=== PATIENT | female | born 1940 | race Caucasian/White ===

== ENCOUNTER 2017-06-20 06:21 | Observation (INO) | payer MEDICARE ==
[2017-06-03 11:37] VITALS: BMI 47.0
--- NOTE | 2017-06-03 12:12 | PAT Medication Instructions ---
Service Date Jun 03, 2017. 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 Fluticasone Propionate (Nasal) (Flonase Allergy Relief), 2 SPRAYS SINAN PRN Furosemide (Lasix), 40 MG PO 3XWK Furosemide (Lasix), 80 MG PO 4XWK Glipizide (Glipizide), 1 TAB PO DAILY Insulin Glargine (Lantus), 40 UNITS SC QAM Insulin Glargine (Lantus), 42 UNITS SC QPM Lisinopril (Lisinopril), 1 TAB PO QAM Meclizine HCl (Meclizine HCl), 1 TAB PO TID PRN for prn Metformin Hcl (Glucophage), 1,000 MG PO BID Oxycodone Ir (Roxicodone Ir), 0.5 TAB PO PRN PRN for Severe Pain Potassium Ext Rel (Klor-Con), 20 MEQ PO 3XWK Potassium Ext Rel (Klor-Con), 40 MEQ PO 4XWK Pregabalin (Lyrica), 1 CAP PO TID Warfarin Sod (Coumadin), 1 TAB PO 3XWEEK Warfarin Sod (Coumadin), 7.5 MG PO 4XWEEK [Clindamycin 2 % Cr], 1 DOSE TOP BID [Nystatin Powd], 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 Instructions For Your Scheduled Surgery - Instructions per prescribing physician/Coumadin clinic: Warfarin Sod (Coumadin), 1 TAB PO 3XWEEK Warfarin Sod (Coumadin), 7.5 MG PO 4XWEEK - Hold the following medications 48 hours prior to surgery: Metformin Hcl (Glucophage), 1,000 MG PO BID - Hold the following medications 24 hours prior to surgery: [Clindamycin 2 % Cr], 1 DOSE TOP BID [Nystatin Powd], 1 DOSE TOP TID 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 for RN - Hold the following medications the morning of surgery: Calcium (Calcium), 1 TAB PO TID Cholecalciferol (Vitamin D), 2,000 INTER.UNIT PO Q2D Lisinopril (Lisinopril), 1 TAB PO QAM Furosemide (Lasix), 40 MG PO 3XWK Furosemide (Lasix), 80 MG PO 4XWK Glipizide (Glipizide), 1 TAB PO DAILY Cyclobenzaprine Hcl (Flexeril), 10 MG PO BID PRN Potassium Ext Rel (Klor-Con), 20 MEQ PO 3XWK Potassium Ext Rel (Klor-Con), 40 MEQ PO 4XWK - Take the following medications the morning of surgery with a sip of water OTHERWISE NOTHING TO EAT OR DRINK AFTER MIDNIGHT: Pregabalin (Lyrica), 1 CAP PO TID Anastrozole (Anastrozole), 1 TAB PO QAM Atenolol (Tenormin), 50 MG PO QAM Fluticasone Propionate (Nasal) (Flonase Allergy Relief), 2 SPRAYS SINAN PRN Meclizine HCl (Meclizine HCl), 1 TAB PO TID PRN for prn Oxycodone Ir (Roxicodone Ir), 0.5 TAB PO PRN PRN for Severe Pain (may take if needed up to 4 hours prior to surgery) - For Insulin Dependent Diabetic patients: Test blood sugar A.M. of surgery. 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
[2017-06-03 12:31] LABS: BASO % 0.6 %; BASO ABS # 0.06 K/uL (0-0.2); COMPLETE YES; EOS % 2.3 %; HEMATOCRIT 42.6 % (37-47); IG% 4.2 %; LYMPH % 16.6 %; LYMPH ABS # 1.67 K/uL (1.2-3.4); MEAN CELL VOLUME 88.9 fL (80-100); MEAN CORPUSCULAR HEMOGLOBIN 28.4 pg (25-34); MEAN CORPUSCULAR HGB CONC 31.9 g/dl (32-36); MEAN PLATELET VOLUME 10.3 fL (7.4-10.4); MONO % 7.4 %; NEUT % 68.9 %; PLATELET COUNT 275 K/uL (130-400); RED BLOOD COUNT 4.79 M/uL (4.2-5.4); WHITE BLOOD COUNT 10.04 K/uL (4.8-10.8)
[2017-06-03 14:04] LABS: BUN/CREATININE RATIO 16.6 (10-20); CALCIUM 9.4 mg/dl (8.5-10.1); CREATININE 0.88 mg/dl (0.60-1.20); POTASSIUM 4.5 mmol/L (3.5-5.1)
[~2017-06-20] VITALS: Ht 162.6 cm; Wt 120.2 kg
[2017-06-20] VITALS (7 sets, daily range): BP systolic 104–147; BP diastolic 62–79; PULSE 56–78; TEMP 36.4–36.7; O2SAT 93–98; Ht 162.6 cm; Wt 120.2 kg
[~2017-06-20 06:21] MED LIST: ANAS1TAB6 PO; ANT25 PO; ATEN50TA8 PO; CALC500T83 PO; CHOL100010 PO; CLINDAMYCIN TOP; CMD5 PO; CMD75 PO; CYCL10TA6 PO; FLUT0.15 NAE; FRS/40 PO; FSMD/70 PO; FURO80TA63 PO; GLC5 PO; INSDGI SC; LACTATED RINGER'S 1000ML 1,000 ML IV SCH; LISI-461 PO; METF-384 PO; NYSTATIN POWD TOP; OXYC1TAB3 PO; POTA20TA16 PO; PREG100C PO
[2017-06-20 07:57] LABS: PROTHROMBIN TIME (PATIENT) 10.8 SECONDS (9.0-12.0)
[2017-06-20] MEDS ORDERED: ATROPINE SULFATE 0.1 MG/ML 5ML SYR IV PRN (08:15)
[2017-06-20] MEDS ORDERED: HYDROmorphone INJ 2 MG/ML SYR/VIAL IV PRN (08:15)
[2017-06-20] MEDS ORDERED: PROMETHAZINE HCL INJ 6.25 MG in SODIUM CHLORIDE 0.9% 50ML 50 ML IV PRN (08:15)
[2017-06-20] MEDS ORDERED: ONDANSETRON INJ 2 MG/ML 2 ML VIAL IV PRN ×2 (08:15→12:15)
[2017-06-20] MEDS ORDERED: KETOROLAC TROMETHAMINE 30 MG/ML VIAL IV. PRN (08:15)
[2017-06-20] MEDS ORDERED: ISOSULFAN BLUE 10 MG/ML VIAL 5 ML ONE (08:17)
[2017-06-20] MEDS ORDERED: FENTANYL CITRATE INJ 50 MCG/1 ML 2 ML VIAL ONE ×2 (08:18→11:46)
[2017-06-20] MEDS ORDERED: MIDAZOLAM HCL 1 MG/ML 2ML VIAL ONE (08:18)
--- NOTE | 2017-06-20 08:58 | DIAGNOSTIC IMAGING REPORT ---
LEFT BREAST LYMPHOSCINTIGRAPHY INJECTION CLINICAL HISTORY: LEFT BREAST CA COMPARISON STUDY: No previous studies for comparison. FINDINGS: A timeout was performed. The patient's left breast was prepped in sterile fashion. 5 periareolar intradermal injections were performed utilizing a total dose of 0.52 mCi of technetium 99m Lymphoseek. The patient was sent to the operating room for localization. IMPRESSION: Left breast periareolar lymphoscintigraphy injections were performed Electronically signed by: Jasper Bennett M.D. 06/20/2017 8:56 AM Dictated Date/Time: 06/20/2017 8:55 AM
--- NOTE | 2017-06-20 09:07 | History & Physical Bridge Note ---
H&P Re-Evaluation Bridge Note: I have examined the patient, reviewed the History & Physical and in the interval since the performance of the History & Physical I have noted the following changes of clinical significance: No changes noted
[2017-06-20] MEDS ORDERED: PROPOFOL IV EMULSION 10 MG/ML 20 ML VIAL IV ONE (10:23)
[2017-06-20] MEDS ORDERED: ONDANSETRON INJ 2 MG/ML 2 ML VIAL ONE (10:23)
[2017-06-20] MEDS ORDERED: LIDOCAINE HCL 2% 2 ML VIAL (20MG/ML) ONE (10:23)
[2017-06-20] MEDS ORDERED: NEOSTIGMINE METHYLSULFATE 5 MG/5 ML SYR ONE (10:23)
[2017-06-20] MEDS ORDERED: GLYCOPYRROLATE INJ 0.2 MG/ML VIAL ONE (10:23)
[2017-06-20] MEDS ORDERED: DEXAMETHASONE SOD INJ 4 MG/ML VIAL ONE (10:23)
--- NOTE | 2017-06-20 12:10 | [facility] Post Operative Brief Note ---
Immediate Operative Summary Operative Date Jun 20, 2017. Pre-Operative Diagnosis Malignant neopasm left breast Post-Operative Diagnosis Same Procedure(s) Performed Left Mastectomy and [place] Lymph Node Biopsy with Axillary Lymph Node Dissection Surgeon Dr Balderrama Shipping And Receiving Assistant Surgeon(s) Selina Schumacher PA-C Estimated Blood Loss 100ML Findings See dictation Specimens A. Left breast and axillary contents sent to lab fresh at 1145 Drains one J-P across chest wall and one J-P in axilla Anesthesia General Complication(s) Intermittent SVT Disposition Recovery Room / PACU
[2017-06-20] MEDS ORDERED: MoRPHine SULFATE 4 MG/ML 1 ML CARP\\VIAL IV PRN (12:15)
[2017-06-20] MEDS ORDERED: EpHEDrine SULFATE 50MG/5ML SYR ONE (12:39)
--- NOTE | 2017-06-20 14:09 | Anesthesiology Progress Note ---
Anesthesia Post Op Note Date & Time Jun 20, 2017 at 14:09 Vital Signs Pain Intensity: 4 Vital Signs Past 12 Hours Date Time Temp Pulse Resp B/P (MAP) Pulse Ox O2 Delivery O2 Flow Rate FiO2 06/20/17 13:36 36.4 62 20 147/74 (98) 95 06/20/17 13:20 58 20 153/53 94 Nasal Cannula 2 06/20/17 13:10 36.7 60 21 158/59 94 Nasal Cannula 2 06/20/17 13:00 64 24 160/58 98 Nasal Cannula 2 06/20/17 12:50 62 19 164/57 96 Oxymask 10 06/20/17 12:40 68 17 165/71 97 Oxymask 10 06/20/17 12:30 36.6 64 16 154/64 97 Oxymask 10 06/20/17 07:21 36.7 56 20 141/62 (88) 96 Room Air Notes Mental Status: alert / awake / arousable, participated in evaluation Pt Amnestic to Procedure: Yes Nausea / Vomiting: adequately controlled Pain: adequately controlled Airway Patency, RR, SpO2: stable & adequate BP & HR: stable & adequate Hydration State: stable & adequate Anesthetic Complications: no major complications apparent
[2017-06-20] MEDS ORDERED: IV FLUIDS COMPLETED PRN (14:15)
[2017-06-20] MEDS ORDERED: D5W AND 1/2NSS + 20MEQ KCL 1,000 ML IV SCH (15:00)
[2017-06-20] MEDS ORDERED: DEXTROSE 50% 50 ML SYR IV PRN (16:00)
[2017-06-20] MEDS ORDERED: GLUCAGON FOR INJ 1 MG VIAL SQ PRN (16:00)
[2017-06-20] MEDS ORDERED: GLUCOSE 10 TABS/TUBE PO PRN (16:00)
[2017-06-20] MEDS ORDERED: GLUCOSE 40% GEL 15 GM TUBE PO PRN (16:00)
--- NOTE | 2017-06-20 16:02 | OPERATIVE REPORT ---
DATE OF OPERATION: 06/20/2017 PREOPERATIVE DIAGNOSIS: Carcinoma of the left breast. 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 PROCEDURE: Left mastectomy with left axillary sentinel lymph node biopsy and left axillary node dissection. SURGEON: Dr. Christiano Balderrama. SUPER[employer]ENDENT [employer]: Selina Curtis PA-C FINDINGS: The biopsy cavities were never encountered. The flaps were viable. The sentinel lymph node biopsy was performed. [place] lymph node #1 had an in vivo count of 17 with an ex vivo count of 425 and sentinel lymph node #2 had an in vivo count of 37 and an ex vivo count of 51. Maximum background counts were 12; however, frozen section pathology on the lymph node #1 revealed metastatic disease. So, an axillary dissection was chosen. TECHNIQUE: The patient was given a general anesthetic after the area had been marked. The area was prepped and draped after Lymphazurin was injected around the nipple after cleansing the skin with alcohol. Once it was prepped and draped, the incision was sketched on the breast. The superior portion of the elliptical incision was made and carried down through the subcutaneous tissue. Meticulous hemostasis was obtained using electrocautery. The superior skin flap was then created from the lateral border of the sternum over to the lateral border of pectoralis major and using the clavicle as the superior extent. The inferior portion of the elliptical incision was made and the skin flap was made from the lateral border of the sternum to the lateral border of pectoralis major and down to where the previously marked inferior mammary crease was. Meticulous hemostasis was obtained. I then performed dissection up towards the axilla. The Neoprobe was then used to confirm where the lymph node had been identified prior to incision and the axilla was dissected until the lymph node was easily identified. It was away from the surrounding tissues using the LigaSure and sent for pathology. The second sentinel lymph node was identified, isolated and sent for pathology. That isolation was in a similar fashion. Once the lymph nodes were removed and sent, the prepectoral fascia was then divided inferior to the clavicle and from the lateral border of the sternum. It was peeled from medial to lateral until it was completely freed off the pectoralis over towards the lateral portion of the skin. It was at that point that the lymph node report returned and the axilla was addressed. Dissection of the axillary fascia was performed until the axillary vein was identified. The tissues inferior to the axillary vein were peeled inferiorly. The large anterior vein was identified and isolated allowing me then to go more posteriorly and identify the dorsal neurovascular bundle. This was freed of its attachments working from superior to inferior when it down towards the latissimus posteriorly. The nerve was compressed and was intact. Further dissection was then carried medially along the chest wall until the long thoracic nerve could be identified. It was compressed and was found to be functioning. The tissue between those 2 structures was then peeled inferiorly and included with the specimen. Once the thoracodorsal neurovascularly border was freed inferiorly, I was then able to divide the anterior chest wall attachments at the lateral border of pectoralis major and peeled that laterally. That allowed me then to complete the lateral dissection of the skin flap and separate this specimen completely. It was sent for pathology. Meticulous hemostasis was then obtained using electrocautery. Two separate stab incisions were made inferolateral to the incision, through which, 2 Jaylen-Vazquez drains were brought, 1 was passed over the anterior chest wall and the other one was passed into the axilla and then cut to size. It was secured at the skin level using 3-0 nylon. The skin incision was then closed using 2-0 Vicryl interrupted sutures in the deep subcutaneous tissue, 3-0 Vicryl running subcuticular sutures in the superficial subcutaneous tissue and a running 4-0 Monocryl in a subcuticular fashion for the skin. The skin was cleansed, dried, benzoin placed, and Steri-Strips applied. Dressing was placed. Estimated blood loss was 150 mL. Sponge, needle, and instrument counts were correct prior to closure. The patient tolerated the surgical procedure without complication and was transferred to recovery. I attest to the content of the Intraoperative Record and any orders documented therein. Any exceptions are noted below. CANDELARIAD
--- NOTE | 2017-06-20 16:03 | Medical Consult ---
Consultation Date of Consultation: Jun 20, 2017. Attending Physician: Christiano Balderrama M.D. History of Present Illness Patient was seen earlier today after being transferred to the PCU. She is a 76 yo female with hormone receptor positive breast cancer who underwent scheduled left mastectomy with sentinal lymph node and axillary lymph node dissection earlier this morning. During her operation she did have a few episodes of atrial tachycardia, but then reverted back to NSR in recovery. The patient denies any complaints right now other than pain/soreness at the surgical site, and some nausea/vomiting. She states she took 20 units of lantus this AM, and was NPO since midnight. At the times of evaluation the patient had some vomiting and dry heaving and stated she did not feel ready to eat yet. Past Medical/Surgical History PMHx: PE and DVT DM Type II HTN Osteoarthritis Lymphedema Diabetic neuropathy Paroxysmal atrial tachycardia Breast cancer SURGHx: total hysterectomy B/L knee arthroscopy low back surgery ruptured disk repair low back right shoulder rotator cuff repair tonsilectomy Family History Diabetes mellitus FATHER GRANDFATHER FH: heart disease FATHER MOTHER Social History Smoking Status: Never Smoker Alcohol Use: none Marital Status: Housing Status: lives with family Occupation Status: retired Allergies Coded Allergies: Rosiglitazone (Verified Allergy, Mild, UNKNOWN-RELATED POSS TO DVT/PE PER MEDICAL RECORD, 06/20/17) Acetaminophen (Verified Allergy, Unknown, HIVES, 06/20/17) Latex (Verified Allergy, Unknown, "Tape causes redness", 06/20/17) Penicillins (Unverified Allergy, Unknown, SOB ,THROAT SHUT,COULDN'T BREATHE, 06/20/17) Tramadol (Verified Allergy, Unknown, UNKNOWN, 06/20/17) Current Inpatient Medications Current Inpatient Medications Medications (Trade) Dose Ordered Sig/Lulu Route Start Time Stop Time Status Last Admin Dose Admin Lactated Ringer's 1,000 ml @ 15 mls/hr Q24H IV 06/20/17 06:00 06/21/17 05:59 Enoxaparin Sodium (Lovenox Inj) 40 mg Q24H SQ 06/21/17 06:00 07/21/17 05:59 Morphine Sulfate (MoRPHine SULFATE INJ) 4 mg Q1H PRN IV 06/20/17 12:15 07/04/17 12:14 Ondansetron HCl (Zofran Inj) 4 mg Q6H PRN IV 06/20/17 12:15 07/20/17 12:14 06/20/17 14:14 4 MG Potassium Chloride/Dextrose/ Sod Cl 1,000 ml @ 80 mls/hr [id number] IV 06/20/17 15:00 07/20/17 14:59 06/20/17 14:57 80 MLS/HR Oxycodone HCl (Roxicodone Immediate Rel Tab) 5 mg Q4H PRN PO 06/20/17 12:15 07/04/17 12:14 Atenolol (Tenormin Tab) 50 mg QAM PO 06/21/17 09:00 07/21/17 08:59 Furosemide (Lasix Tab) 40 mg DAILY PO 06/21/17 09:00 07/21/17 08:59 Lisinopril (Zestril Tab) 10 mg QAM PO 06/21/17 09:00 07/21/17 08:59 Miscellaneous (Iv Fluids Completed) 1 ea PRN PRN N/A 06/20/17 14:15 06/20/18 14:14 Insulin Aspart (novoLOG ASPART) SLIDING SCALE If C... ACHS SC 06/20/17 16:15 07/20/17 16:14 UNV Glucose (Glucose 40% Gel) 15-30 GRAMS 15 GRAMS... UD PRN PO 06/20/17 16:00 07/20/17 15:59 UNV Glucose (Glucose Chew Tab) 4-8 Tablets 4 Tabl... UD PRN PO 06/20/17 16:00 07/20/17 15:59 UNV Dextrose (Dextrose 50% 50ML Syringe) 25-50ML OF 50% DW IV FOR... UD PRN IV 06/20/17 16:00 07/20/17 15:59 UNV Glucagon (Glucagon Inj) 1 mg UD PRN SQ 06/20/17 16:00 07/20/17 15:59 UNV Insulin Glargine (Lantus Solostar Pen) 30 units BID SC 06/20/17 21:00 07/20/17 20:59 UNV Review of Systems Constitutional: No fever, No chills, No sweats, No weight loss Eyes: No worsening of vision, No eye pain, No discharge, No diplopia ENT: No nasal symptoms, No sore throat, No trouble swallowing Respiratory: No cough, No wheezing, No shortness of breath, No hemoptysis Cardiovascular: + edema, No chest pain, No claudication, No palpitations Abdomen: + nausea, No pain, No diarrhea, No GI bleeding Musculoskeletal: No joint pain, No muscle pain, No swelling, No calf pain Genitourinary - Female: No dysuria, No urinary frequency, No urinary urgency, No urinary incontinence Neurologic: No paralysis, No numbness/tingling, No vertigo, No balance problems Psychiatric: No problem reported Endocrine: No problem reported Hematologic / Lymphatic: No problem reported Integumentary: + rash Physical Exam Date Time Temp Pulse Resp B/P (MAP) Pulse Ox O2 Delivery O2 Flow Rate FiO2 06/20/17 15:42 36.4 65 18 123/74 (90) 98 Room Air 06/20/17 13:36 36.4 62 20 147/74 (98) 95 06/20/17 13:20 58 20 153/53 94 Nasal Cannula 2 06/20/17 13:10 36.7 60 21 158/59 94 Nasal Cannula 2 06/20/17 13:00 64 24 160/58 98 Nasal Cannula 2 06/20/17 12:50 62 19 164/57 96 Oxymask 10 06/20/17 12:40 68 17 165/71 97 Oxymask 10 06/20/17 12:30 36.6 64 16 154/64 97 Oxymask 10 06/20/17 07:21 36.7 56 20 141/62 (88) 96 Room Air General Appearance: WD/WN, no apparent distress Head: normocephalic, atraumatic Eyes: PERRL, EOMI, sclerae normal ENT: hearing grossly normal Neck: supple, no JVD, no carotid bruits, trachea midline Respiratory/Chest: chest non-tender, normal breath sounds, no respiratory distress, + decreased breath sounds Cardiovascular: regular rate, rhythm, no gallop, no JVD, no murmur Abdomen/GI: normal bowel sounds, non tender, soft, no organomegaly Extremities/Musculoskelatal: no calf tenderness, normal capillary refill, + pedal edema Neurologic/Psych: no motor/sensory deficits, alert, normal mood/affect, oriented x 3 Skin: warm/dry, no rash Laboratory Results Last 24 Hours Test 06/20/17 07:23 06/20/17 07:35 06/20/17 11:45 06/20/17 12:49 Bedside Glucose 173 mg/dl 193 mg/dl 236 mg/dl Prothrombin Time 10.8 SECONDS Prothromb Time International Ratio 1.0 Activated Partial Thromboplast Time 25.9 SECONDS Partial Thromboplastin Ratio 1.0 Assessment & Plan POSTOPERATIVE: s/p left mastectomy, with axillary sentinel lymph node biopsy and dissection for positive node -pain control, drains, activity as per Surgery -resume anticoagulation as recommended by Coag clinic with lovenox initially and then resume coumadin -will monitor for postoperative anemia -encourage incentive spirometry -bowel regimen PAT: -agree with monitoring in telemetry -resume home medications -had several episodes during her surgery PE and DVT: -patient was on anticoagulation, will be resumed as per recommended schedule given by the Coag clinic -patient to start on lovenox tomorrow per Surgery DM TYPE II: -will hold oral medications until discharge -resume lantus BID; return to full dose once the patient is eating and drinking normally -BSG AC and HS -correction scale insulin for meal time coverage should be held if patient is not eating or skips a meal HTN: -stable -continue home medications and monitor OSTEOARTHRITIS: -pain control CHRONIC LYMPHEDEMA: -monitor fluid status -resume lasix upon discharge BREAST CANCER: -infiltrating carcinoma; 2 masses -patient is following with Hem/Onc -is taking arimidex
[2017-06-20] MEDS ORDERED: INSULIN ASPART 100 UNITS/ML 3 ML PEN SC SCH (16:15)
[2017-06-20] MEDS ORDERED: NURSING VERBAL MED ORDER ONE (17:00)
[2017-06-20] MEDS ORDERED: SODIUM CHLORIDE 0.9% 1000ML 1,000 ML IV SCH (17:15)
[2017-06-20] MEDS ORDERED: INSULIN GLARGINE SOLOSTAR 100 UNITS/ML 3 ML PEN SC SCH (21:00)
[2017-06-20] MEDS ORDERED: INSULIN GLARGINE SOLOSTAR 100 UNITS/ML 3 ML PEN SC ONE ×2 (21:17→21:24)
[2017-06-20] MEDS ORDERED: INSULIN ASPART 100 UNITS/ML 3 ML PEN SC ONE (21:17)
[2017-06-20] MEDS ORDERED: SODIUM CHLORIDE 0.9% 1000ML 1,000 ML IV ONE (21:30)
[2017-06-20] MEDS ORDERED: PROMETHAZINE HCL INJ 12.5 MG in SODIUM CHLORIDE 0.9% 50ML 50 ML IV PRN (21:45)
[2017-06-20 22:41] LABS: BUN/CREATININE RATIO 16.1 (10-20); CALCIUM 8.9 mg/dl (8.5-10.1); CREATININE 1.4 mg/dl (0.60-1.20); MAGNESIUM 2.3 mg/dl (1.8-2.4); POTASSIUM 5.1 mmol/L (3.5-5.1)
[2017-06-20 22:54] LABS: BETA-HYDROXYBUTYRATE 0.83 mg/dL (0.2-2.81)
[2017-06-21] VITALS: BP 105/67; PULSE 70; TEMP 36.9; O2SAT 95
[2017-06-21 04:29] VITALS: BP 92/55; PULSE 71; TEMP 36.6; O2SAT 96
[2017-06-21] MEDS: ENOXAPARIN 40 MG/0.4 ML SYR SQ SCH (05:21)
[2017-06-21] MEDS ORDERED: PREGABALIN 100 MG CAP PO ONE (05:49)
[2017-06-21] MEDS ORDERED: METFORMIN HCL 500 MG TAB PO SCH (07:30)
[2017-06-21 08:02] LABS: BUN/CREATININE RATIO 20.3 (10-20); CALCIUM 8.3 mg/dl (8.5-10.1); CREATININE 0.94 mg/dl (0.60-1.20); POTASSIUM 4.4 mmol/L (3.5-5.1)
[2017-06-21 08:10] VITALS: BP 98/54; PULSE 66; TEMP 36.8; O2SAT 95
[2017-06-21] MEDS: INSULIN ASPART 100 UNITS/ML 3 ML PEN SC SCH ×4 (08:11→21:01)
[2017-06-21] MEDS: INSULIN GLARGINE SOLOSTAR 100 UNITS/ML 3 ML PEN SC SCH ×2 (08:12→21:01)
[2017-06-21] MEDS ORDERED: LISINOPRIL 10 MG TAB PO SCH (09:00)
[2017-06-21] MEDS ORDERED: INSULIN GLARGINE SOLOSTAR 100 UNITS/ML 3 ML PEN SC SCH ×2 (09:00)
[2017-06-21] MEDS ORDERED: FUROSEMIDE 40 MG TAB PO SCH (09:00)
--- NOTE | 2017-06-21 10:26 | Anesthesiology Progress Note ---
Anesthesia Post Op Note Date & Time Jun 21, 2017 at 10:25 Vital Signs Pain Intensity: 2.0 Vital Signs Past 12 Hours Date Time Temp Pulse Resp B/P (MAP) Pulse Ox O2 Delivery O2 Flow Rate FiO2 06/21/17 08:10 36.8 66 20 98/54 (69) 95 06/21/17 08:00 Nasal Cannula 2.0 06/21/17 04:29 36.6 71 20 92/55 (67) 96 Nasal Cannula 2.0 06/21/17 04:00 Nasal Cannula 2.0 06/21/17 00:00 36.9 70 20 105/67 (80) 95 Nasal Cannula 06/20/17 23:59 Nasal Cannula 2.0 Notes Mental Status: alert / awake / arousable, participated in evaluation Pt Amnestic to Procedure: Yes Nausea / Vomiting: adequately controlled Pain: adequately controlled Airway Patency, RR, SpO2: stable & adequate BP & HR: stable & adequate Hydration State: stable & adequate Anesthetic Complications: no major complications apparent
--- NOTE | 2017-06-21 10:33 | Progress Note ---
Medicine Progress Note Date & Time of Visit: Jun 21, 2017 at 10:20. Subjective patient seen resting in bed, in good spirits, alert denies palpitations, chest pain, dyspnea, dizziness, no other symptoms not much pain on surgical site would like to ambulate more no other symptoms Objective Last 8 Hrs Date Time Temp Pulse Resp B/P (MAP) Pulse Ox O2 Delivery O2 Flow Rate FiO2 06/21/17 08:10 36.8 66 20 98/54 (69) 95 06/21/17 08:00 Nasal Cannula 2.0 06/21/17 04:29 36.6 71 20 92/55 (67) 96 Nasal Cannula 2.0 06/21/17 04:00 Nasal Cannula 2.0 Physical Exam: General- oriented x 3, not in distress, speaks in sentences with no effort Eyes- anicteric ENT- oropharynx clear Neck- no JVD, no adenopathy Lungs- clear breath sounds bilaterally, no rales/wheezes Heart- regular rhythm; no murmur,normal rate Abdomen- normal bowel sounds, soft, nontender Extremities- no pretibial edema, no calf tenderness Neuro- alert, oriented x 3; no gross focal deficits Skin- warm & dry Laboratory Results: Last 24 Hours Test 06/20/17 11:45 06/20/17 12:49 06/20/17 16:41 06/20/17 20:11 Bedside Glucose 193 mg/dl 236 mg/dl 315 mg/dl 334 mg/dl Test 06/20/17 21:51 06/21/17 06:36 06/21/17 07:00 Sodium Level 133 mmol/L 137 mmol/L Potassium Level 5.1 mmol/L 4.4 mmol/L Chloride Level 97 mmol/L 104 mmol/L Carbon Dioxide Level 29 mmol/L 28 mmol/L Anion Gap 7.0 mmol/L 5.0 mmol/L Blood Urea Nitrogen 23 mg/dl 19 mg/dl Creatinine 1.40 mg/dl 0.94 mg/dl Est Creatinine Clear Calc Drug Dose 45.9 ml/min 66.5 ml/min Estimated GFR () 42.8 69.3 Estimated GFR (Non- 36.9 59.8 BUN/Creatinine Ratio 16.1 20.3 Random Glucose 344 mg/dl 211 mg/dl Calcium Level 8.9 mg/dl 8.3 mg/dl Magnesium Level 2.3 mg/dl Beta-Hydroxybutyric Acid 0.83 mg/dL Bedside Glucose 191 mg/dl Assessment & Plan s/p Left Mastectomy, with axillary sentinel lymph node biopsy and dissection for positive node -- BP on the low side hold Lisinopril -- on Lovenox for DVT prophylaxis resume Coumadin when ok with Surgery usually takes Coumadin 5mg po mwf, 7.5mg other days PAT -- noted to have episodes of tachycardia this Am again few seconds asymptomatic -- already on Atenolol PE and DVT: - last episode 10 years ago - on chronic coumadin DM TYPE II: -will hold oral medications until discharge - continue Lantus 25 units BID ISS HTN: - on the low side - hold Lisinopril OSTEOARTHRITIS - stable CHRONIC LYMPHEDEMA: - hold Lasix to prevent dehydration - resume on discharge BREAST CANCER: -infiltrating carcinoma; 2 masses -patient is following with Hem/Onc -is taking arimidex Thank you for this consultation. We will follow the patient with you during their hospital stay. You can reach a member of the [facility] Hospitalist Team 06/06 via pager @ [phone]. Current Inpatient Medications: Current Inpatient Medications Medications (Trade) Dose Ordered Sig/Lulu Route Start Time Stop Time Status Last Admin Dose Admin Enoxaparin Sodium (Lovenox Inj) 40 mg Q24H SQ 06/21/17 06:00 07/21/17 05:59 06/21/17 05:21 40 MG Morphine Sulfate (MoRPHine SULFATE INJ) 4 mg Q1H PRN IV 06/20/17 12:15 07/04/17 12:14 Ondansetron HCl (Zofran Inj) 4 mg Q6H PRN IV 06/20/17 12:15 07/20/17 12:14 06/20/17 14:14 4 MG Oxycodone HCl (Roxicodone Immediate Rel Tab) 5 mg Q4H PRN PO 06/20/17 12:15 07/04/17 12:14 Atenolol (Tenormin Tab) 50 mg QAM PO 06/21/17 09:00 07/21/17 08:59 06/21/17 08:27 50 MG Miscellaneous (Iv Fluids Completed) 1 ea PRN PRN N/A 06/20/17 14:15 06/20/18 14:14 Glucose (Glucose 40% Gel) 15-30 GRAMS 15 GRAMS... UD PRN PO 06/20/17 16:00 07/20/17 15:59 Glucose (Glucose Chew Tab) 4-8 Tablets 4 Tabl... UD PRN PO 06/20/17 16:00 07/20/17 15:59 Dextrose (Dextrose 50% 50ML Syringe) 25-50ML OF 50% DW IV FOR... UD PRN IV 06/20/17 16:00 07/20/17 15:59 Glucagon (Glucagon Inj) 1 mg UD PRN SQ 06/20/17 16:00 07/20/17 15:59 Insulin Aspart (novoLOG ASPART) SLIDING SCALE If C... ACHS SC 06/21/17 07:00 07/20/17 16:14 06/21/17 08:11 4 UNITS Sodium Chloride 1,000 ml @ 75 mls/hr [id number] ONCE IV 06/20/17 21:30 06/21/17 10:49 06/20/17 21:30 75 MLS/HR Insulin Glargine (Lantus Solostar Pen) 35 units BID SC 06/21/17 09:00 07/21/17 08:59 06/21/17 08:12 35 UNITS Promethazine HCl 12.5 mg/Sodium Chloride 50.5 ml @ 204 mls/hr Q6H PRN IV 06/20/17 21:45 07/20/17 21:44 Pregabalin (Lyrica Cap) 100 mg TID PO 06/21/17 14:00 07/21/17 13:59
[2017-06-21 11:41] LABS: ESTIMATED AVERAGE GLUCOSE 160 mg/dl; HA1C FLAG Normal (Normal)
[2017-06-21 11:45] VITALS: BP 92/50; PULSE 69; TEMP 36.8; O2SAT 96
--- NOTE | 2017-06-21 12:10 | Surgery Progress Note ---
Surgery Progress Note Date of Service Jun 21, 2017. Subjective Post OP Day: 1 Patient examined at bedside. Afebrile, mildly hypotensive to SBP 90s this morning (asymptomatic), remains on 2L O2 via NC. Sitting up comfortably in bed on exam. Pain is well controlled - she has not been taking pain medications; however she notes she tried to get out of bed with assistance earlier today and had severe pain in her left chest at the surgical site. She currently has no pain, just "soreness". Tolerating diet without N/V. Voiding without difficulty. Using IS, has not ambulated yet. Drains with serosanguinous drainage (50ml and 5ml recorded since operation). Objective Vital Signs: Date Time Temp Pulse Resp B/P (MAP) Pulse Ox O2 Delivery O2 Flow Rate FiO2 06/21/17 11:45 36.8 69 20 92/50 (64) 96 06/21/17 08:10 36.8 66 20 98/54 (69) 95 06/21/17 08:00 Nasal Cannula 2.0 06/21/17 04:29 36.6 71 20 92/55 (67) 96 Nasal Cannula 2.0 06/21/17 04:00 Nasal Cannula 2.0 06/21/17 00:00 36.9 70 20 105/67 (80) 95 Nasal Cannula 06/20/17 23:59 Nasal Cannula 2.0 06/20/17 20:00 Nasal Cannula 2.0 06/20/17 19:05 36.4 78 18 104/79 (87) 93 Nasal Cannula 3.0 06/20/17 16:00 94 Nasal Cannula 2.0 06/20/17 15:51 94 Nasal Cannula 2.0 06/20/17 15:42 36.4 65 18 123/74 (90) 98 Room Air 06/20/17 14:49 62 16 124/76 (92) 96 06/20/17 13:36 36.4 62 20 147/74 (98) 95 06/20/17 13:20 58 20 153/53 94 Nasal Cannula 2 06/20/17 13:10 36.7 60 21 158/59 94 Nasal Cannula 2 06/20/17 13:00 64 24 160/58 98 Nasal Cannula 2 06/20/17 12:50 62 19 164/57 96 Oxymask 10 06/20/17 12:40 68 17 165/71 97 Oxymask 10 06/20/17 12:30 36.6 64 16 154/64 97 Oxymask 10 Physical Exam: YURI drainage (Serosanguinous) General Appearance: WD/WN, no apparent distress Head: normocephalic, atraumatic Neck: supple Respiratory/Chest: lungs clear, normal breath sounds, no respiratory distress, + pertinent finding (Chest wall at surgical site appropriately tender to palpation, incision well approximated / intact, surgical dressing in place - clean / dry) Cardiovascular: regular rate, rhythm Abdomen: non tender, non distended, soft Incision(s): clean, dry, intact Laboratory Results: Results Past 24 Hours Test 06/20/17 12:49 06/20/17 16:41 06/20/17 20:11 06/20/17 21:51 Range/Units Bedside Glucose 236 315 334 70-90 mg/dl Sodium Level 133 136-145 mmol/L Potassium Level 5.1 3.5-5.1 mmol/L Chloride Level 97 98-107 mmol/L Carbon Dioxide Level 29 21-32 mmol/L Anion Gap 7.0 3-11 mmol/L Blood Urea Nitrogen 23 7-18 mg/dl Creatinine 1.40 0.60-1.20 mg/dl Est Creatinine Clear Calc Drug Dose 45.9 ml/min Estimated GFR () 42.8 Estimated GFR (Non- 36.9 BUN/Creatinine Ratio 16.1 10-20 Random Glucose 344 70-99 mg/dl Calcium Level 8.9 8.5-10.1 mg/dl Magnesium Level 2.3 1.8-2.4 mg/dl Beta-Hydroxybutyric Acid 0.83 0.2-2.81 mg/dL Test 06/21/17 06:36 06/21/17 07:00 06/21/17 10:29 06/21/17 11:25 Range/Units Bedside Glucose 191 203 70-90 mg/dl Sodium Level 137 136-145 mmol/L Potassium Level 4.4 3.5-5.1 mmol/L Chloride Level 104 98-107 mmol/L Carbon Dioxide Level 28 21-32 mmol/L Anion Gap 5.0 3-11 mmol/L Blood Urea Nitrogen 19 7-18 mg/dl Creatinine 0.94 0.60-1.20 mg/dl Est Creatinine Clear Calc Drug Dose 66.5 ml/min Estimated GFR () 69.3 Estimated GFR (Non- 59.8 BUN/Creatinine Ratio 20.3 10-20 Random Glucose 211 70-99 mg/dl Calcium Level 8.3 8.5-10.1 mg/dl Estimated Average Glucose 160 mg/dl Hemoglobin A1c 7.2 4.5-5.6 % Assessment & Plan Gloria Felix is a 76 year old woman who is now POD 1 s/p Left Mastectomy, with axillary sentinel lymph node biopsy and subsequent axillary dissection for positive node. -Wean O2 off to room air this afternoon -Encouraged pain medication use prior to getting out of bed again, encouraged ambulation - PT/OT consult requested -Diet as tolerated -Pain control as needed -Drains to bulb suction - drain care / monitor outputs, will need drain teaching to home prior to discharge -Continue on monitors tonight -Nystatin powder to ruth infection under pannus / inguinal area -Appreciate medicine recommendations -Likely discharge to home tomorrow pending progress with the above plan
[2017-06-21] MEDS: OXYCODONE HCL IR 5 MG TAB (IMMEDIATE RELEASE) PO PRN (13:08)
[2017-06-21] MEDS: PREGABALIN 100 MG CAP PO SCH ×2 (14:18→20:56)
[2017-06-21] MEDS: NYSTATIN POWDER 15GM BTL EXT SCH ×2 (14:18→20:53)
[2017-06-21 15:32] VITALS: BP 110/69; PULSE 50; TEMP 36.7; O2SAT 96
[2017-06-21 19:33] VITALS: BP 129/70; PULSE 61; TEMP 36.7; O2SAT 91
[2017-06-22] VITALS: BP 115/68; PULSE 63; TEMP 36.7; O2SAT 97
[2017-06-22 03:46] VITALS: BP 117/69; PULSE 64; TEMP 36.6; O2SAT 94
[2017-06-22] MEDS: ENOXAPARIN 40 MG/0.4 ML SYR SQ SCH (05:27)
[2017-06-22 07:38] VITALS: BP 124/61; PULSE 65; TEMP 37; O2SAT 95
--- NOTE | 2017-06-22 07:40 | Discharge Instructions ---
Discharge Instructions Date of Service Jun 22, 2017. Admission Reason for Admission: Carcinoma Of Left Breast Discharge Discharge Diagnosis / Problem: Same Discharge Goals Goal(s): Improve disease control Activity Recommendations Activity Limitations: per Instructions/Follow-up section Shower/Bathe: keep incision dry (Keep drain sites dry) . Instructions / Follow-Up Instructions / Follow-Up MEDICATIONS: Resume previous medications unless instructed otherwise by your surgeon. * Oxycodone 5 mg one tablet every 4 hours as needed for pain. SPECIAL CARE INSTRUCTIONS: * Empty and record drains separately. * May shower after drains removed. * Leave steri strips on until seen in office. * Call the surgeon's office with any questions or concerns - (ex. temperature higher than 101 degrees F, excessive bleeding or pain). * Call the surgeon's office when any of the drain output decreases below 20 c for one day FOLLOW UP VISIT: If not already scheduled, please call the office for a follow-up appointment for next week at . Current Hospital Diet Patient's current hospital diet: Diabetes Type 2 Diet Discharge Diet Recommended Diet: Diabetes Type 2 Diet Procedures Procedures Performed: Left Mastectomy and [place] Lymph Node Biopsy with Axillary Lymph Node Dissection Pending Studies Studies pending at discharge: yes List of pending studies: Pathology Laboratory Results Hemoglobin A1c Test 06/21/17 10:29 Range/Units Estimated Average Glucose 160 mg/dl Hemoglobin A1c 7.2 H 4.5-5.6 % Medical Emergencies . Who to Call and When: Medical Emergencies: If at any time you feel your situation is an emergency, please call 911 immediately. . Non-Emergent Contact Non-Emergency issues call your: Primary Care Provider, Surgeon Call Non-Emergent contact if: your pain is worsening, wound has increased redness, wound has increased pain . "Provider Documentation" section prepared by Christiano Balderrama. . VTE Core Measure Inpt VTE Proph given/why not?: Warfarin (Coumadin) (Please contact Coumadin clinic for instructions)
--- NOTE | 2017-06-22 07:42 | Surgery Progress Note ---
Surgery Progress Note Date of Service Jun 22, 2017. Subjective Post OP Day: 2 + pain controlled, No nausea, No vomiting Feels much better today Objective Vital Signs: Date Time Temp Pulse Resp B/P (MAP) Pulse Ox O2 Delivery O2 Flow Rate FiO2 06/22/17 07:38 37.0 65 18 124/61 (82) 95 06/22/17 04:00 Room Air 06/22/17 03:46 36.6 64 22 117/69 (85) 94 Room Air 06/22/17 00:00 36.7 63 21 115/68 (84) 97 Room Air 06/21/17 23:59 Room Air 06/21/17 20:00 Room Air 06/21/17 19:33 36.7 61 18 129/70 (89) 91 Nasal Cannula 1.0 06/21/17 16:00 Nasal Cannula 1.0 06/21/17 15:32 36.7 50 16 110/69 (83) 96 Nasal Cannula 1.0 06/21/17 12:00 Nasal Cannula 2.0 06/21/17 11:45 36.8 69 20 92/50 (64) 96 06/21/17 08:10 36.8 66 20 98/54 (69) 95 06/21/17 08:00 Nasal Cannula 2.0 Respiratory/Chest: + pertinent finding (Incision as below) Incision(s): clean, dry, intact, no erythema, no drainage Laboratory Results: Results Past 24 Hours Test 06/21/17 10:29 06/21/17 11:25 06/21/17 16:40 06/21/17 20:23 Range/Units Estimated Average Glucose 160 mg/dl Hemoglobin A1c 7.2 4.5-5.6 % Bedside Glucose 203 177 168 70-90 mg/dl Test 06/22/17 06:34 Range/Units Bedside Glucose 131 70-90 mg/dl Assessment & Plan Doing well today Can D/C to home Follow up and instructions discussed
[2017-06-22] MEDS: INSULIN ASPART 100 UNITS/ML 3 ML PEN SC SCH ×2 (07:49→11:50)
[2017-06-22] MEDS: NYSTATIN POWDER 15GM BTL EXT SCH (08:06)
[2017-06-22] MEDS: INSULIN GLARGINE SOLOSTAR 100 UNITS/ML 3 ML PEN SC SCH (08:11)
[2017-06-22] MEDS: PREGABALIN 100 MG CAP PO SCH (08:11)
[2017-06-22 09:02] VITALS: BP 124/61; PULSE 65; TEMP 37; O2SAT 95
--- NOTE | 2017-06-22 09:33 | Progress Note ---
Medicine Progress Note Date & Time of Visit: Jun 22, 2017 at 09:29. Subjective patient seen resting in bedside chair, comfortable no tachycardia episodes per RN denies palpitations, dizziness, chest pain, dyspnea ambulating with no problems states she is ready for discharge today denies other symptoms Objective Last 8 Hrs Date Time Temp Pulse Resp B/P (MAP) Pulse Ox O2 Delivery O2 Flow Rate FiO2 06/22/17 09:02 37.0 65 18 95 Room Air Nasal Cannula 06/22/17 08:00 Room Air 06/22/17 07:38 37.0 65 18 124/61 (82) 95 06/22/17 04:00 Room Air 06/22/17 03:46 36.6 64 22 117/69 (85) 94 Room Air Physical Exam: General- oriented x 3, not in distress, speaks in sentences with no effort Neck- no JVD Lungs- clear breath sounds, no rales/wheezes bilaterally Heart- regular rhythm; no murmur,normal rate Abdomen- normal bowel sounds, soft, nontender Extremities- mild lower leg edema, no calf tenderness Neuro- alert, oriented x 3; no gross focal deficits Skin- warm & dry Laboratory Results: Last 24 Hours Test 06/21/17 10:29 06/21/17 11:25 06/21/17 16:40 06/21/17 20:23 Estimated Average Glucose 160 mg/dl Hemoglobin A1c 7.2 % Bedside Glucose 203 mg/dl 177 mg/dl 168 mg/dl Test 06/22/17 06:34 06/22/17 09:14 Bedside Glucose 131 mg/dl Assessment & Plan s/p Left Mastectomy, with axillary sentinel lymph node biopsy and dissection for positive node -- BP stable advised to resume Lisinopril -- on Lovenox for DVT prophylaxis resume Coumadin today when ok with Surgery usually takes Coumadin 5mg po mwf, 7.5mg other days [facility] notes reviewed, advised patient to resume usual dosing after surgery patient also advised to call [facility] today to confirm advice PAT -- no more tachycardia episodes by Tele asymptomatic -- already on Atenolol 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 We will follow the patient with you during their hospital stay. You can reach a member of the [facility] Hospitalist Team 06/06 via pager @ . Current Inpatient Medications: Current Inpatient Medications Medications (Trade) Dose Ordered Sig/Lulu Route Start Time Stop Time Status Last Admin Dose Admin Enoxaparin Sodium (Lovenox Inj) 40 mg Q24H SQ 06/21/17 06:00 07/21/17 05:59 06/22/17 05:27 40 MG Morphine Sulfate (MoRPHine SULFATE INJ) 4 mg Q1H PRN IV 06/20/17 12:15 07/04/17 12:14 Ondansetron HCl (Zofran Inj) 4 mg Q6H PRN IV 06/20/17 12:15 07/20/17 12:14 06/20/17 14:14 4 MG Oxycodone HCl (Roxicodone Immediate Rel Tab) 5 mg Q4H PRN PO 06/20/17 12:15 07/04/17 12:14 06/21/17 13:08 5 MG Atenolol (Tenormin Tab) 50 mg QAM PO 06/21/17 09:00 07/21/17 08:59 06/22/17 08:19 50 MG Miscellaneous (Iv Fluids Completed) 1 ea PRN PRN N/A 06/20/17 14:15 06/20/18 14:14 Glucose (Glucose 40% Gel) 15-30 GRAMS 15 GRAMS... UD PRN PO 06/20/17 16:00 07/20/17 15:59 Glucose (Glucose Chew Tab) 4-8 Tablets 4 Tabl... UD PRN PO 06/20/17 16:00 07/20/17 15:59 Dextrose (Dextrose 50% 50ML Syringe) 25-50ML OF 50% DW IV FOR... UD PRN IV 06/20/17 16:00 07/20/17 15:59 Glucagon (Glucagon Inj) 1 mg UD PRN SQ 06/20/17 16:00 07/20/17 15:59 Insulin Aspart (novoLOG ASPART) SLIDING SCALE If C... ACHS SC 06/21/17 07:00 07/20/17 16:14 06/21/17 21:01 6 UNITS Insulin Glargine (Lantus Solostar Pen) 35 units BID SC 06/21/17 09:00 07/21/17 08:59 06/22/17 08:11 35 UNITS Promethazine HCl 12.5 mg/Sodium Chloride 50.5 ml @ 204 mls/hr Q6H PRN IV 06/20/17 21:45 07/20/17 21:44 Pregabalin (Lyrica Cap) 100 mg TID PO 06/21/17 14:00 07/21/17 13:59 06/22/17 08:11 100 MG Nystatin (Mycostatin Powder) 1 appln TID EXT 06/21/17 14:00 07/21/17 13:59 06/22/17 08:06 1 APPLN
[2017-06-22 09:54] LABS: BASO % 0.4 %; BASO ABS # 0.04 K/uL (0-0.2); COMPLETE YES; EOS % 1.6 %; IG% 3.8 %; LYMPH % 18.9 %; MEAN CELL VOLUME 90.7 fL (80-100); MEAN CORPUSCULAR HEMOGLOBIN 28.2 pg (25-34); MEAN CORPUSCULAR HGB CONC 31.1 g/dl (32-36); MEAN PLATELET VOLUME 10.4 fL (7.4-10.4); MONO % 11.6 %; NEUT % 63.7 %; PLATELET COUNT 276 K/uL (130-400); RED BLOOD COUNT 3.97 M/uL (4.2-5.4)
[2017-06-22] MEDS: OXYCODONE HCL IR 5 MG TAB (IMMEDIATE RELEASE) PO PRN (10:20)
[2017-06-22 10:26] LABS: BUN/CREATININE RATIO 23.3 (10-20); CALCIUM 8.3 mg/dl (8.5-10.1); CREATININE 0.91 mg/dl (0.60-1.20); POTASSIUM 4.3 mmol/L (3.5-5.1)
[2017-06-22 11:41] VITALS: BP 115/67; PULSE 69; TEMP 36.7; O2SAT 95
--- NOTE | 2017-06-29 11:02 | Discharge Summary ---
Discharge Summary Dates Admission Date / Time: Jun 20, 2017 at 07:00 Discharge Date: Jun 22, 2017 Dispostion / Condition Discharge Disposition: Home Condition at Discharge: Good Principal Diagnosis (1) Breast cancer in female Problem List (1) Breast cancer in female Consultations / Procedures Consultations: Medicine Procedures: Left Mastectomy with [place] lymph node biopsy and left axillary dissection for positive node Pending Studies / Follow-Up Mastectomy pathology- will be reviewed at follow-up appointment Medication Reconciliation Continued Medications: Alendronate/Cholecalciferol (Fosamax+D 70MG/2800 Iu) 70 Mg Tab 1 TABLET PO WK, TAB SATURDAYS Anastrozole (Anastrozole) 1 Mg Tab 1 TAB PO QAM for 90 Days, #90 TAB 3 Refills Atenolol (Tenormin) 50 Mg Tab 50 MG PO QAM, TAB Calcium (Calcium) 500 Mg Tab 1 TAB PO TID Cholecalciferol (Vitamin D) 1,000 Inter.unit Tab 2000 INTER.UNIT PO Q2D, TAB AM Cyclobenzaprine Hcl (Flexeril) 10 Mg Tab 10 MG PO BID PRN for RN, #21 TAB Fluticasone Propionate (Nasal) (Flonase Allergy Relief) 50 Mcg/Act Spr 2 SPRAYS SINAN PRN Furosemide (Lasix) 40 Mg Tab 40 MG PO 3XWK, TAB Furosemide (Lasix) 80 Mg Tab 80 MG PO 4XWK, TAB 5 Refills Glipizide (Glipizide) 5 Mg Tab 1 TAB PO DAILY TAKES DIFFERENT TIMES Insulin Glargine (Lantus) Vial 40 UNITS SC QAM, VIAL Insulin Glargine (Lantus) Vial 42 UNITS SC QPM, VIAL Lisinopril (Lisinopril) 10 Mg Tab 1 TAB PO QAM Meclizine HCl (Meclizine HCl) 25 Mg Tab 1 TAB PO TID PRN for prn Metformin Hcl (Glucophage) 1,000 Mg Tab 1000 MG PO BID, TAB Oxycodone Ir (Roxicodone Ir) 5 Mg Tab 0.5 TAB PO PRN PRN for Severe Pain, #12 TAB Potassium Ext Rel (Klor-Con) 20 Meq Tabcr 20 MEQ PO 3XWK, TAB Tuesday Potassium Ext Rel (Klor-Con) 20 Meq Tabcr 40 MEQ PO 4XWK, TAB Tuesday Pregabalin (Lyrica) 100 Mg Cap 1 CAP PO TID for 30 Days, #90 CAP 2 Refills Warfarin Sod (Coumadin) 5 Mg Tab 1 TAB PO 3XWEEK Tuesday Warfarin Sod (Coumadin) 7.5 Mg Tab 7.5 MG PO 4XWEEK Tuesday [Clindamycin 2 % Cr] () 1 DOSE TOP BID [Nystatin Powd] () 1 DOSE 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 She has been followed by oncology/hematology and is currently take Arimidex. She was scheduled for elective left mastectomy with sentinel lymph node biopsy by Dr. Balderrama. Hospital Course (1) Breast cancer in female Patient was taken to operating room for left mastectomy and sentinel lymph node biopsy by Dr. Balderrama. During the procedure, left axillary sentinel lymph nodes were found however first sentinel lymph node was positive therefore an axillary dissection was completed. Patient had some paroxysmal atrial tachycardia during the operation and converted back to NSR. She was transferred to recovery in stable condition and then to PCU for post operative care and monitoring on Telemetry given the PAT. She does have a history of PAT in the past. Post operatively her diet was advanced as tolerated, IV fluids, IV pain medication, oral pain medication as needed, home medications, Insulin sliding scale for diabetes, IV Zofran as needed for nausea and activity ad alison. Medicine was consulted given the PAT during the procedure. POD # 1 she was feeling okay and minimal pain however was not taking any pain medication and when tried to ambulate had severe pain in the left chest at surgical site. She was still on 2 liters of oxygen via nasal canula and systolic blood pressures low in the 90's. Otherwise tolerating regular diet, no nausea or vomiting. YURI drains had 50 mls and 5 mls respectively. Her home lisinopril dose was held given hypotension and O2 was weaned off later in the day. She was kept for the evening for monitoring and pain control. POD # 2, feeling much better. Blood pressure stable and lisinopril was resumed. She was no longer requiring oxygen via nasal canula and pain controlled. No events of PAT on monitoring overnight. She was discharged home on POD # 2 in stable condition. Was to resume her Coumadin and home medications for blood pressure and rate. Other than listed above, hospital course uneventful. Discharge Instructions as given to patient Copies To Primary Care Provider: Christiano Felton M.D.. Problem Qualifiers (1) Breast cancer in female: Estrogen receptor status: positive Laterality: left
== END 2017-06-22 12:16 | disposition home or self-care (01) ==
LOC: C.ACU 06:21 → INTOOBSV 07:00 → C.2T 07:00 → ENRESERV 12:59
PROVIDERS: ADMIT Surgery; ATTEND Surgery
DX: C50.912 Malignant neoplasm of unspecified site of left female breast (principal); C77.3 Secondary and unspecified malignant neoplasm of axilla and upper limb lymph nodes; I10 Essential (primary) hypertension; E11.42 Type 2 diabetes mellitus with diabetic polyneuropathy; I26.99 Other pulmonary embolism without acute cor pulmonale; E66.9 Obesity, unspecified; M19.90 Unspecified osteoarthritis, unspecified site; Z79.4 Long term (current) use of insulin; Z79.01 Long term (current) use of 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; Z79.899 Other long term (current) drug therapy

== ENCOUNTER 2020-11-19 13:05 | Inpatient (IN) ==
[2020-11-19] MEDS ORDERED: CEFEPIME 2,000 MG/20 ML VIAL IV STA (13:50)
[2020-11-19] MEDS ORDERED: IBUPROFEN 200 MG TAB PO STA (13:50)
[2020-11-19 14:00] LABS: Basophils # (auto) 0.03 K/uL (0-0.2); Basophils % (auto) 0.1 %; Hematocrit (blood only) 42.8 % (37-47); Hemoglobin 13.5 g/dL (12.0-16.0); Immature Granulocytes # (auto) 0.29 K/uL (0.00-0.02); Immature Granulocytes % (auto) 1.3 %; Lymphocytes # (auto) 1.51 K/uL (1.2-3.4); Lymphocytes % (auto) 6.7 %; Mean Corpuscular Hemoglobin 27.9 pg (25-34); Mean Corpuscular Hgb Conc 31.5 g/dL (32-36); Mean Corpuscular Volume 88.4 fL (80-100); Mean Platelet Volume 11.8 fL (7.4-10.4); Monocytes # (auto) 1.48 K/uL (0.11-0.59); Monocytes % (auto) 6.6 %; Neutrophils # (auto) 19.11 K/uL (1.4-6.5); Neutrophils % (auto) 85.3 %; Platelet Count 242 K/uL (130-400); RDW Coefficient of Variation 15.3 % (11.5-14.5); Red Blood Count 4.84 M/uL (4.2-5.4); White Blood Count 22.42 K/uL (4.8-10.8)
[2020-11-19] MEDS ORDERED: SODIUM CHLORIDE 0.9% 1000ML 1,000 ML IV SCH (14:00)
--- NOTE | 2020-11-19 14:06 | Emergency Department Note ---
Impression & Plan Sepsis, Cholecystitis, Leukocytosis, SHAYNE (acute kidney injury) ED Provider Note NAME: ANABELLA STOREY AGE: 80 SEX: F : 1940 ARRIVES VIA: Ambulance INFORMANT: Patient ED PROVIDER(S): Rodolfo Hammond DO CHIEF COMPLAINT: Abdominal pain HPI: Patient is a 80-year-old female who presents to the ER for epigastric abdominal pain. This started this past weekend. She notes the pain lasted for about 3 days now has completely resolved. She does have nausea and diarrhea. Diarrhea has resolved. She denies any cough but notes that she may be slightly short of breath. Denies any chest pain. She does admit to some dysuria and urgency. No other exacerbating or remitting factors. She denies any exposure to anyone with Covid. Denies wearing oxygen at home. She admits that she would want CPR and intubation if need be. ROS: See above HPI for pertinent positives & negatives. A total of 10 systems reviewed and were otherwise negative. PAST MEDICAL HISTORY:See Below PAST SURGICAL HISTORY:See Below FAMILY HISTORY:See Below SOCIAL HISTORY:See Below HOME MEDICATIONS:See Below ALLERGIES:See Below VITALS:See Below PHYSICAL EXAMINATION: GENERAL: Sitting up in bed, alert, obese, ill-appearing, moderate distress, on nasal cannula EYE EXAM: normal conjunctiva. OROPHARYNX: Dry mucous membranes NECK: supple, no nuchal rigidity, no adenopathy, non-tender LUNGS: Diminished bilaterally. Normal chest wall mechanics HEART: Tachycardic, S1 normal and S2 normal ABDOMEN: abdomen soft, tender throughout her entire abdomen worse in the epigastric region, normo-active bowel sounds, no masses, no rebound or guarding. UPPER EXTREMITIES: upper extremities are grossly normal. LOWER EXTREMITIES: Calves are equal bilateral NEURO EXAM: Normal sensorium, cranial nerves II-XII grossly intact, normal speech, no gross weakness of arms, no gross weakness of legs. MEDICAL DECISION MAKING: Patient is a 80-year-old female who presents the ER for abdominal pain nausea vomiting. Her pain has resolved but still not feeling well. Presentation she is found to be febrile and tachycardic. IV was established blood was obtained. Labs show leukocytosis of 22,000. No significant anemia. INR was slightly elevated at 1.5. VBG with pH of 7.35. BMP with a slightly elevated creatinine at 1.7. Troponin was elevated 0.067 and pro-Drake was elevated at 11. UA was contaminated with multiple epithelial cells. Covid was negative. CT of the chest and abdomen pelvis was performed and showed a gangrenous gallbladder. Patient was given 2 L of IV fluids in combination with IV cefepime and Flagyl. Unable to receive Zosyn due to allergies. Patient was updated bedside. Discussed the case with Dr. Macdonald who evaluate the patient at bedside. He believes that the patient has retained stone in the common bile duct and requested gastroenterology to perform an emergent EGD. I did discuss the read which showed no retained stone in the LFTs were not elevated. Discussed with Dr. Adams who then discussed the case with Dr. Lucian Martinez. Discussed the case with Bee knight who eventually spoke with derrick after he spoke with Dr. Lucian Martinez. Patient will be taken emergently for an ERCP. Dr. Macdonald plan is to take the gallbladder out in the next 24 to 48 hours following that. Patient was updated bedside. Covid testing was negative. Patient was admitted to the hospital service. She did drop her pressures into the 90s and this rebound with fluids. I do believe it was also positional secondary to the cough on the right forearm position. Triage Nursing notes reviewed. Prior medical records reviewed Vital Signs: reviewed and remarkable for also, tachycardic Differential diagnosis: Differential diagnosis includes etiologies such as sepsis, UTI, pneumonia, metabolic, electrolyte abnormalities, cardiac sources, intracerebral event, toxicologic, neurological, as well as others were entertained. ER treatment provided: See below Diagnostics interpreted by me: ECG: Sinus tachycardia rate of [address] depressions in the high lateral leads ST elevations in the septal leads QTC 449 Cardiac Monitoring: An order was placed for continuous cardiac monitoring. The monitor shows a rate of 110 with sinus rhythm. Laboratory studies: As stated above and show below. Imaging studies: CTs as discussed above show acute cholecystitis Consultation(s): Discussed the case with Dr. Macdonald, Aileen Jones, Bee knight and Dr. Adams as stated above ED COURSE: Procedures: none Critical Care: I have personally spent 75 minutes of critical care time in the direct management of this patient. This includes bedside care, interpretation of diagnostic studies, and testing, discussion with consultants, patient, and family members, and other required patient management activities. This 75 minutes is in excess of all separately billable procedures. 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 Lymphedema, not elsewhere classified Malignant neoplasm of upper-outer quadrant of left female breast Morbid (severe) obesity due to excess calories Obstructive sleep apnea (adult) (pediatric) Other pulmonary embolism without acute cor pulmonale Pain of right foot 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 Vitamin D insufficiency Surgical History Previous back surgery S/P hysterectomy S/P right rotator cuff repair Social History (Updated 06/12/20 @ 14:53 by Sangita Menezes RN) Smoking Status: Never smoker Hx Alcohol Use: No Hx Substance Use: No Preferred Language: Djib[place]ian Visual Impairment: Limited Hearing Ability: Normal Beliefs That Will Affect Care: None marital status: Current Living Situation: Spouse current occupational status: retired Feels Safe at Home: Yes Allergies Allergies Allergy/AdvReac Type Severity Reaction Status Date / Time rosiglitazone Allergy Mild UNKNOWN-RELATED Verified 11/19/20 16:08 POSS TO DVT/PE PER MEDICAL RECORD acetaminophen Allergy Unknown HIVES Verified 11/19/20 16:08 latex Allergy Unknown "Tape Verified 11/19/20 16:08 causes redness" Penicillins Allergy Unknown SOB Unverified 11/19/20 16:08 ,THROAT SHUT,COULDN'T BREATHE tramadol Allergy Unknown UNKNOWN Verified 11/19/20 16:08 Home Meds Home Medications Medication Instructions Recorded Confirmed anastrozole 1 mg tablet 1 mg PO DAILY 06/12/20 11/19/20 clindamycin phosphate 1 % topical 1 appln TOP BID 06/12/20 11/19/20 gel cyanocobalamin (vitamin B-12) 1,000 mcg PO DAILY 06/12/20 11/19/20 1,000 mcg tablet cyclobenzaprine 10 mg tablet 10 mg PO BID tab 06/12/20 11/19/20 fluticasone propionate 50 2 sprays INTNAS DAILY 06/12/20 11/19/20 mcg/actuation nasal spray,suspension furosemide 40 mg tablet 40 mg PO TUTHSA 06/12/20 11/19/20 glipizide 5 mg tablet 5 mg PO BID 06/12/20 11/19/20 insulin glargine 100 unit/mL 40 units SQ QAM 06/12/20 11/19/20 subcutaneous solution insulin glargine 100 unit/mL 42 units SQ QPM ml 06/12/20 11/19/20 subcutaneous solution lisinopril 10 mg tablet 10 mg PO DAILY 06/12/20 11/19/20 metformin 1,000 mg tablet 1,000 mg PO BID 06/12/20 11/19/20 metoprolol tartrate 100 mg tablet 100 mg PO BID 06/12/20 11/19/20 potassium chloride 20 mEq 20 meq PO .DAILY UD 06/12/20 11/19/20 tablet,extended release pregabalin 200 mg capsule 200 mg PO BID 06/12/20 11/19/20 warfarin 7.5 mg tablet See Rx Instructions PO DAILY tab 06/12/20 11/19/20 acetaminophen [Tylenol] 325 mg PO Q4 PRN 11/19/20 11/19/20 cholecalciferol (vitamin D3) 25 - 50 mcg PO DAILY 11/19/20 11/19/20 [Vitamin D3] furosemide [Lasix] 80 mg PO SUMOWEFRSA 11/19/20 11/19/20 meclizine 25 mg PO TID PRN 11/19/20 11/19/20 turmeric root extract 500 mg PO DAILY 11/19/20 11/19/20 Results & Data (ED) Vital Signs Vital Signs - 24 hr 11/19/20 13:25 11/19/20 13:29 11/19/20 13:30 Temperature Temperature Source Pulse Rate 101 H 104 H 103 H Pulse Rate [Apical] Pulse Rate from SpO2 Sensor 101 H 103 H 104 H Respiratory Rate 20 20 24 Respiratory Effort / Characteristics Respiratory Depth Respiratory Pattern Blood Pressure 104/52 L 113/77 Blood Pressure [Right Arm] Blood Pressure Mean 61 91 Blood Pressure Mean [Right Arm] Pulse Oximetry 98 96 96 Oxygen Delivery Method Oxygen Flow Rate Sepsis Recent Fever Within 48 Hours Sepsis New/Unexplained Change in Mental Status Sepsis Action Taken by Nursing 11/19/20 13:32 11/19/20 13:35 11/19/20 13:42 Temperature 39.2 C H Temperature Source Oral Pulse Rate 104 H 103 H Pulse Rate [Apical] 100 H Pulse Rate from SpO2 Sensor 104 H Respiratory Rate 20 24 24 Respiratory Effort / Characteristics Non-Labored Spontaneous Non-Labored Spontaneous Respiratory Depth Normal Normal Respiratory Pattern Regular Regular Blood Pressure 104/52 L Blood Pressure [Right Arm] 113/77 Blood Pressure Mean 69 Blood Pressure Mean [Right Arm] 89 Pulse Oximetry 97 80 L 80 L Oxygen Delivery Method Room Air Room Air Oxygen Flow Rate Sepsis Recent Fever Within 48 Hours Yes Sepsis New/Unexplained Change in Mental Status No Sepsis Action Taken by Nursing No Action Required 11/19/20 14:00 11/19/20 14:18 11/19/20 14:30 Temperature Temperature Source Pulse Rate 101 H 100 H 103 H Pulse Rate [Apical] Pulse Rate from SpO2 Sensor 101 H 100 H Respiratory Rate 24 20 20 Respiratory Effort / Characteristics Respiratory Depth Respiratory Pattern Blood Pressure 107/64 Blood Pressure [Right Arm] Blood Pressure Mean 69 Blood Pressure Mean [Right Arm] Pulse Oximetry 98 97 93 Oxygen Delivery Method Nasal Cannula Nasal Cannula Oxygen Flow Rate 3 3 Sepsis Recent Fever Within 48 Hours Sepsis New/Unexplained Change in Mental Status Sepsis Action Taken by Nursing 11/19/20 14:39 11/19/20 15:00 11/19/20 15:30 Temperature Temperature Source Pulse Rate 103 H 101 H 110 H Pulse Rate [Apical] Pulse Rate from SpO2 Sensor 103 H 110 H Respiratory Rate 20 30 H 28 H Respiratory Effort / Characteristics Respiratory Depth Respiratory Pattern Blood Pressure Blood Pressure [Right Arm] Blood Pressure Mean Blood Pressure Mean [Right Arm] Pulse Oximetry 97 100 95 Oxygen Delivery Method Nasal Cannula Nasal Cannula Nasal Cannula Oxygen Flow Rate 3 3 3 Sepsis Recent Fever Within 48 Hours Sepsis New/Unexplained Change in Mental Status Sepsis Action Taken by Nursing 11/19/20 15:58 11/19/20 16:01 11/19/20 16:20 Temperature 37.9 C H Temperature Source Oral Pulse Rate 100 H 96 H Pulse Rate [Apical] Pulse Rate from SpO2 Sensor 100 H 100 H Respiratory Rate 28 H 27 H Respiratory Effort / Characteristics Respiratory Depth Respiratory Pattern Blood Pressure 97/58 L 116/61 Blood Pressure [Right Arm] Blood Pressure Mean 84 70 Blood Pressure Mean [Right Arm] Pulse Oximetry 96 96 Oxygen Delivery Method Nasal Cannula Nasal Cannula Oxygen Flow Rate 3 3 Sepsis Recent Fever Within 48 Hours Sepsis New/Unexplained Change in Mental Status Sepsis Action Taken by Nursing 11/19/20 16:30 11/19/20 17:00 Temperature Temperature Source Pulse Rate 98 H 96 H Pulse Rate [Apical] Pulse Rate from SpO2 Sensor 96 H 97 H Respiratory Rate 25 H 24 Respiratory Effort / Characteristics Respiratory Depth Respiratory Pattern Blood Pressure 119/63 99/64 L Blood Pressure [Right Arm] Blood Pressure Mean 77 78 Blood Pressure Mean [Right Arm] Pulse Oximetry 98 95 Oxygen Delivery Method Nasal Cannula Nasal Cannula Oxygen Flow Rate 3 3 Sepsis Recent Fever Within 48 Hours Sepsis New/Unexplained Change in Mental Status Sepsis Action Taken by Nursing Laboratory Data Result diagrams: 11/19/20 13:25 11/19/20 13:25 Lab Results 11/19/20 11/19/20 11/19/20 Range/Units 13:25 13:25 13:25 WBC 22.42 H (4.8-10.8) K/uL RBC 4.84 (4.2-5.4) M/uL Hgb 13.5 (12.0-16.0) g/dL Hct 42.8 (37-47) % MCV 88.4 (80-100) fL MCH 27.9 (25-34) pg MCHC 31.5 L (32-36) g/dL RDW Std Deviation 50.0 H (36.4-46.3) fL RDW Coeff of [place] 15.3 H (11.5-14.5) % Plt Count 242 (130-400) K/uL MPV 11.8 H (7.4-10.4) fL Immature Gran % (Auto) 1.3 % Neut % (Auto) 85.3 % Lymph % (Auto) 6.7 % Cole % (Auto) 6.6 % Eos % (Auto) 0.0 % Baso % (Auto) 0.1 % Neut # (Auto) 19.11 H (1.4-6.5) K/uL Lymph # (Auto) 1.51 (1.2-3.4) K/uL Cole # (Auto) 1.48 H (0.11-0.59) K/uL Eos # (Auto) 0.00 (0-0.5) K/uL Baso # (Auto) 0.03 (0-0.2) K/uL Immature Gran # (Auto) 0.29 H (0.00-0.02) K/uL PT 15.1 H (9.0-12.0) Seconds INR 1.5 H (0.9-1.1) APTT 37.5 H (21.0-31.0) Seconds PTT Ratio 1.3 VBG pH (7.36-7.41) VBG pCO2 (38-50) mmHg VBG pO2 mmHg VBG HCO3 mmol/L VBG O2 Saturation % VBG Base Excess mEq/L Barometric Pressure mm/Hg Sodium 132 L (136-145) mmol/L Potassium 4.2 (3.5-5.1) mmol/L Chloride 95 L (98-107) mmol/L Carbon Dioxide 30 (21-32) mmol/L Anion Gap 7.0 (3-11) BUN 39 H (7-18) mg/dl Creatinine 1.71 H (0.6-1.2) mg/dl Est Cr Clr Drug Dosing 35.5 ml/min Est GFR ( Amer) 32.7 Est GFR (Non-Af Amer) 28.2 BUN/Creatinine Ratio 22.8 H (10-20) Glucose 293 H (70-99) mg/dl Lactate (0.4-2.0) mmol/L Calcium 8.7 (8.5-10.1) mg/dl Magnesium 2.0 (1.8-2.4) mg/dl Total Bilirubin 1.4 H (0.2-1) mg/dl AST 12 L (15-37) U/L ALT 14 (12-78) U/L Alkaline Phosphatase 56 (45-117) U/L Troponin I 0.067 H* (0-0.045) ng/ml Total Protein 7.6 (6.4-8.2) gm/dl Albumin 2.5 L (3.4-5.0) gm/dl Globulin 5.1 H (2.5-4.0) gm/dl Albumin/Globulin Ratio 0.5 L (0.9-2) Lipase (73-393) U/L Procalcitonin (0-0.5) ng/ml Urine Color Urine Appearance (Clear) Urine pH (4.5-7.5) Ur Specific [place] (1.000-1.030) Urine Protein (Negative) Urine Glucose (UA) (Negative) Urine Ketones (Negative) Urine Blood (Negative) Urine Nitrite (Negative) Urine Bilirubin (Negative) Urine Urobilinogen (Negative) Ur Leukocyte Esterase (Negative) Urine WBC (Auto) (0-5) /hpf Urine RBC (Auto) (0-4) /hpf U Hyaline Cast (Auto) (0-5) /lpf U Epithel Cells (Auto) (0-5) /lpf Urine Bacteria (Auto) (Negative) Granular Casts (0) /lpf COVID-19 Eval Order SARS-CoV-2, RNA, NAAT (NEGATIVE) 11/19/20 11/19/20 11/19/20 Range/Units 13:25 13:25 13:27 WBC (4.8-10.8) K/uL RBC (4.2-5.4) M/uL Hgb (12.0-16.0) g/dL Hct (37-47) % MCV (80-100) fL MCH (25-34) pg MCHC (32-36) g/dL RDW Std Deviation (36.4-46.3) fL RDW Coeff of [place] (11.5-14.5) % Plt Count (130-400) K/uL MPV (7.4-10.4) fL Immature Gran % (Auto) % Neut % (Auto) % Lymph % (Auto) % Cole % (Auto) % Eos % (Auto) % Baso % (Auto) % Neut # (Auto) (1.4-6.5) K/uL Lymph # (Auto) (1.2-3.4) K/uL Cole # (Auto) (0.11-0.59) K/uL Eos # (Auto) (0-0.5) K/uL Baso # (Auto) (0-0.2) K/uL Immature Gran # (Auto) (0.00-0.02) K/uL PT (9.0-12.0) Seconds INR (0.9-1.1) APTT (21.0-31.0) Seconds PTT Ratio VBG pH (7.36-7.41) VBG pCO2 (38-50) mmHg VBG pO2 mmHg VBG HCO3 mmol/L VBG O2 Saturation % VBG Base Excess mEq/L Barometric Pressure mm/Hg Sodium (136-145) mmol/L Potassium (3.5-5.1) mmol/L Chloride (98-107) mmol/L Carbon Dioxide (21-32) mmol/L Anion Gap (3-11) BUN (7-18) mg/dl Creatinine (0.6-1.2) mg/dl Est Cr Clr Drug Dosing ml/min Est GFR ( Amer) Est GFR (Non-Af Amer) BUN/Creatinine Ratio (10-20) Glucose (70-99) mg/dl Lactate 2.5 H* (0.4-2.0) mmol/L Calcium (8.5-10.1) mg/dl Magnesium (1.8-2.4) mg/dl Total Bilirubin (0.2-1) mg/dl AST (15-37) U/L ALT (12-78) U/L Alkaline Phosphatase (45-117) U/L Troponin I (0-0.045) ng/ml Total Protein (6.4-8.2) gm/dl Albumin (3.4-5.0) gm/dl Globulin (2.5-4.0) gm/dl Albumin/Globulin Ratio (0.9-2) Lipase 81 (73-393) U/L Procalcitonin 11.02 H (0-0.5) ng/ml Urine Color Urine Appearance (Clear) Urine pH (4.5-7.5) Ur Specific [place] (1.000-1.030) Urine Protein (Negative) Urine Glucose (UA) (Negative) Urine Ketones (Negative) Urine Blood (Negative) Urine Nitrite (Negative) Urine Bilirubin (Negative) Urine Urobilinogen (Negative) Ur Leukocyte Esterase (Negative) Urine WBC (Auto) (0-5) /hpf Urine RBC (Auto) (0-4) /hpf U Hyaline Cast (Auto) (0-5) /lpf U Epithel Cells (Auto) (0-5) /lpf Urine Bacteria (Auto) (Negative) Granular Casts (0) /lpf COVID-19 Eval Order SARS-CoV-2, RNA, NAAT (NEGATIVE) 11/19/20 11/19/20 11/19/20 Range/Units 13:27 14:42 15:10 WBC (4.8-10.8) K/uL RBC (4.2-5.4) M/uL Hgb (12.0-16.0) g/dL Hct (37-47) % MCV (80-100) fL MCH (25-34) pg MCHC (32-36) g/dL RDW Std Deviation (36.4-46.3) fL RDW Coeff of [place] (11.5-14.5) % Plt Count (130-400) K/uL MPV (7.4-10.4) fL Immature Gran % (Auto) % Neut % (Auto) % Lymph % (Auto) % Cole % (Auto) % Eos % (Auto) % Baso % (Auto) % Neut # (Auto) (1.4-6.5) K/uL Lymph # (Auto) (1.2-3.4) K/uL Cole # (Auto) (0.11-0.59) K/uL Eos # (Auto) (0-0.5) K/uL Baso # (Auto) (0-0.2) K/uL Immature Gran # (Auto) (0.00-0.02) K/uL PT (9.0-12.0) Seconds INR (0.9-1.1) APTT (21.0-31.0) Seconds PTT Ratio VBG pH 7.35 L (7.36-7.41) VBG pCO2 53 H (38-50) mmHg VBG pO2 33 mmHg VBG HCO3 29 mmol/L VBG O2 Saturation 64.0 % VBG Base Excess 2.2 mEq/L Barometric Pressure 733.7 mm/Hg Sodium (136-145) mmol/L Potassium (3.5-5.1) mmol/L Chloride (98-107) mmol/L Carbon Dioxide (21-32) mmol/L Anion Gap (3-11) BUN (7-18) mg/dl Creatinine (0.6-1.2) mg/dl Est Cr Clr Drug Dosing ml/min Est GFR ( Amer) Est GFR (Non-Af Amer) BUN/Creatinine Ratio (10-20) Glucose (70-99) mg/dl Lactate (0.4-2.0) mmol/L Calcium (8.5-10.1) mg/dl Magnesium (1.8-2.4) mg/dl Total Bilirubin (0.2-1) mg/dl AST (15-37) U/L ALT (12-78) U/L Alkaline Phosphatase (45-117) U/L Troponin I (0-0.045) ng/ml Total Protein (6.4-8.2) gm/dl Albumin (3.4-5.0) gm/dl Globulin (2.5-4.0) gm/dl Albumin/Globulin Ratio (0.9-2) Lipase (73-393) U/L Procalcitonin (0-0.5) ng/ml Urine Color Dark Yellow Urine Appearance Turbid A (Clear) Urine pH 5.0 (4.5-7.5) Ur Specific [place] 1.016 (1.000-1.030) Urine Protein 1+ H (Negative) Urine Glucose (UA) Negative (Negative) Urine Ketones Negative (Negative) Urine Blood Trace H (Negative) Urine Nitrite Negative (Negative) Urine Bilirubin 1+ H (Negative) Urine Urobilinogen Negative (Negative) Ur Leukocyte Esterase 3+ H (Negative) Urine WBC (Auto) >30 H (0-5) /hpf Urine RBC (Auto) 0-4 (0-4) /hpf U Hyaline Cast (Auto) 5-10 H (0-5) /lpf U Epithel Cells (Auto) >30 H (0-5) /lpf Urine Bacteria (Auto) 3+ H (Negative) Granular Casts 1-5 H (0) /lpf COVID-19 Eval [facility] [place], RNA, NAAT (NEGATIVE) 11/19/20 11/19/20 Range/Units 15:10 15:54 WBC (4.8-10.8) K/uL RBC (4.2-5.4) M/uL Hgb (12.0-16.0) g/dL Hct (37-47) % MCV (80-100) fL MCH (25-34) pg MCHC (32-36) g/dL RDW Std Deviation (36.4-46.3) fL RDW Coeff of [place] (11.5-14.5) % Plt Count (130-400) K/uL MPV (7.4-10.4) fL Immature Gran % (Auto) % Neut % (Auto) % Lymph % (Auto) % Cole % (Auto) % Eos % (Auto) % Baso % (Auto) % Neut # (Auto) (1.4-6.5) K/uL Lymph # (Auto) (1.2-3.4) K/uL Cole # (Auto) (0.11-0.59) K/uL Eos # (Auto) (0-0.5) K/uL Baso # (Auto) (0-0.2) K/uL Immature Gran # (Auto) (0.00-0.02) K/uL PT (9.0-12.0) Seconds INR (0.9-1.1) APTT (21.0-31.0) Seconds PTT Ratio VBG pH (7.36-7.41) VBG pCO2 (38-50) mmHg VBG pO2 mmHg VBG HCO3 mmol/L VBG O2 Saturation % VBG Base Excess mEq/L Barometric Pressure mm/Hg Sodium (136-145) mmol/L Potassium (3.5-5.1) mmol/L Chloride (98-107) mmol/L Carbon Dioxide (21-32) mmol/L Anion Gap (3-11) BUN (7-18) mg/dl Creatinine (0.6-1.2) mg/dl Est Cr Clr Drug Dosing ml/min Est GFR ( Amer) Est GFR (Non-Af Amer) BUN/Creatinine Ratio (10-20) Glucose (70-99) mg/dl Lactate 1.3 (0.4-2.0) mmol/L Calcium (8.5-10.1) mg/dl Magnesium (1.8-2.4) mg/dl Total Bilirubin (0.2-1) mg/dl AST (15-37) U/L ALT (12-78) U/L Alkaline Phosphatase (45-117) U/L Troponin I (0-0.045) ng/ml Total Protein (6.4-8.2) gm/dl Albumin (3.4-5.0) gm/dl Globulin (2.5-4.0) gm/dl Albumin/Globulin Ratio (0.9-2) Lipase (73-393) U/L Procalcitonin (0-0.5) ng/ml Urine Color Urine Appearance (Clear) Urine pH (4.5-7.5) Ur Specific [place] (1.000-1.030) Urine Protein (Negative) Urine Glucose (UA) (Negative) Urine Ketones (Negative) Urine Blood (Negative) Urine Nitrite (Negative) Urine Bilirubin (Negative) Urine Urobilinogen (Negative) Ur Leukocyte Esterase (Negative) Urine WBC (Auto) (0-5) /hpf Urine RBC (Auto) (0-4) /hpf U Hyaline Cast (Auto) (0-5) /lpf U Epithel Cells (Auto) (0-5) /lpf Urine Bacteria (Auto) (Negative) Granular Casts (0) /lpf COVID-19 Eval Order SARS-CoV-2, RNA, NAAT NEGATIVE (NEGATIVE) Administered Medications Discontinued Medications Sodium Chloride (Nss 1000ml) 1,000 mls @ 999 mls/hr IV .Q1H1M TAYO Stop: 11/19/20 15:00 Last Infusion: 11/19/20 15:46 Dose: 0 mls/hr Documented by: [id number] Admin: 11/19/20 14:45 Dose: 999 mls/hr Documented by: [id number] Cefepime HCl (Maxipime) 2,000 mg in 20 mls @ 5 mls/min IV NOW STA; Protocol Stop: 11/19/20 13:53 Last Admin: 11/19/20 14:49 Dose: 5 mls/min Documented by: [id number] Sodium Chloride (Nss 1000ml) 1,000 mls @ 999 mls/hr IV .Q1H1M ONE Stop: 11/19/20 16:27 Last Infusion: 11/19/20 16:56 Dose: 0 mls/hr Documented by: [id number] Admin: 11/19/20 15:55 Dose: 999 mls/hr Documented by: [id number] Sodium Chloride (Nss 1000ml) 1,000 mls @ 999 mls/hr IV .Q1H1M ONE Stop: 11/19/20 17:15 Last Admin: 11/19/20 17:07 Dose: 999 mls/hr Documented by: [id number] Metronidazole (Flagyl) 500 mg in 100 mls @ 100 mls/hr IV NOW STA Stop: 11/19/20 17:15 Last Admin: 11/19/20 17:07 Dose: 100 mls/hr Documented by: [id number] Ibuprofen (Ibuprofen 200 Mg Tab) 400 mg PO NOW STA Stop: 11/19/20 13:51 Last Admin: 11/19/20 14:45 Dose: 400 mg Documented by: [id number] Discharge Plan Visit Data Chief Complaint: Illness Stated Complaint: WEAKNESS, AB PAIN, DIARRHEA, FEVER ED Provider: Rodolfo Hammond Discharge Problem: Sepsis, Cholecystitis, Leukocytosis, SHAYNE (acute kidney injury) Discharge Instructions Krames/Other Patient Handouts: 2019-nCoV Forms Stand Alone Forms: [facility] Prescriptions Prescriptions: No Action potassium chloride 20 mEq tablet extended release 40 meq PO SUMOWEFR RF: 0 furosemide [Lasix] 40 mg tablet 40 mg PO TUTHSA RF: 0 metformin 1,000 mg tablet 1,000 mg PO BID RF: 0 Lantus U-100 Insulin 100 unit/mL solution 42 units SQ QPM RF: 0 Lantus U-100 Insulin 100 unit/mL solution 40 units SQ QAM RF: 0 anastrozole 1 mg tablet 1 mg PO DAILY RF: 0 cyanocobalamin (vitamin B-12) 1,000 mcg tablet 1,000 mcg PO DAILY RF: 0 glipizide 5 mg tablet 5 mg PO BID RF: 0 lisinopril 10 mg tablet 10 mg PO DAILY RF: 0 metoprolol tartrate 100 mg tablet 100 mg PO BID RF: 0 pregabalin [Lyrica] 200 mg capsule 200 mg PO BID RF: 0 clindamycin phosphate 1 % gel 1 appln TOP BID RF: 0 cyclobenzaprine 10 mg tablet 10 mg PO BID RF: 0 fluticasone propionate 50 mcg/actuation spray,suspension 2 sprays INTNAS DAILY RF: 0 furosemide [Lasix] 40 mg tablet 80 mg PO SUMOWEFR RF: 0 acetaminophen [Tylenol] 325 mg Tablet 325 mg PO Q4 PRN (Reason: Fever Or Pain) RF: 0 meclizine 25 mg Tablet 25 mg PO TID PRN (Reason: DIZZYNESS) RF: 0 cholecalciferol (vitamin D3) [Vitamin D3] 25 mcg (1,000 unit) Tablet 25 mcg PO Q2D RF: 0 turmeric root extract 500 mg Capsule 500 mg PO DAILY RF: 0 cholecalciferol (vitamin D3) 50 mcg (2,000 unit) Capsule 50 mcg PO Q2D RF: 0 potassium chloride 20 mEq Tablet Extended Release 20 meq PO TUTHSA RF: 0 warfarin 5 mg tablet 7.5 mg PO MOFR RF: 0 warfarin 5 mg tablet 5 mg PO SUTUWETHSA RF: 0 Referrals Referrals: Christiano Felton MD [Primary Care Provider] - Discharge Problem: Sepsis Qualifiers: Sepsis type: sepsis due to unspecified organism Sepsis acute organ dysfunction status: unspecified Qualified Code(s): A41.9 - Sepsis, unspecified organism Leukocytosis Qualifiers: Leukocytosis type: unspecified Qualified Code(s): D72.829 - Elevated white blood cell count, unspecified
[2020-11-19 14:12] LABS: Base Excess VBG 2.2 mEq/L; pH VBG 7.35 (7.36-7.41)
--- NOTE | 2020-11-19 14:14 | XRay Report ---
XR chest 1V portable HISTORY: SEPSIS COMPARISON: None. FINDINGS: Questionable faint hazy densities within the lung bases. No evidence for pulmonary edema. T he heart is mildly enlarged. No pleural effusions. No pneumothorax. A few linear scarlike densities w ithin the periphery the left midlung zone. IMPRESSION: Questionable faint hazy densities within the lung bases. This could represent a developing pneumonia or represent artifact from overlying soft tissue. ACT 112: Negative or not required by law. Electronically signed by: Norman Otto M.D. 11/19/2020 2:12 PM
[2020-11-19 14:20] LABS: Albumin Level 2.5 gm/dl (3.4-5.0); BUN Creatinine Ratio 22.8 (10-20); Calcium 8.7 mg/dl (8.5-10.1); Creatinine Clr Calc Pharmacy 35.5 ml/min; Est GFR (African American) 32.7; Est GFR (Non-African American) 28.2; INR 1.5 (0.9-1.1); Partial Thromboplastin Ratio 1.3; Partial Thromboplastin Time 37.5 Seconds (21.0-31.0); Potassium 4.2 mmol/L (3.5-5.1); Prothrombin Time 15.1 Seconds (9.0-12.0)
[2020-11-19 14:42] LABS: Albumin Globulin Ratio 0.5 (0.9-2); Bilirubin,Total 1.4 mg/dl (0.2-1); Globulin 5.1 gm/dl (2.5-4.0); Total Protein 7.6 gm/dl (6.4-8.2); Troponin I 0.067 ng/ml (0-0.045)
[2020-11-19 14:53] LABS: Appearance Urine Turbid (Clear); Bacteria Urine Automated 3+ (Negative); Blood Urine Trace (Negative); Color Urine Dark Yellow; Epithelial Cell Urine Auto >30 /lpf (0-5); Glucose Urine UA Negative (Negative); Ketones Urine Negative (Negative); Leukocyte Esterase Urine 3+ (Negative); Nitrite Urine Negative (Negative); Protein Urine 1+ (Negative); Specific Gravity Urine 1.016 (1.000-1.030); Urobilinogen Urine Negative (Negative); WBC Urine Automated >30 /hpf (0-5)
[2020-11-19 14:54] LABS: Bilirubin Urine 1+ (Negative)
[2020-11-19 14:59] LABS: RBC Urine Automated 0-4 /hpf (0-4)
[2020-11-19] MEDS ORDERED: SODIUM CHLORIDE 0.9% 1000ML 1,000 ML IV ONE ×2 (15:27→16:15)
--- NOTE | 2020-11-19 16:00 | CT Scan Report ---
CT chest diagnostic wo con, CT abd pelvis wo con CT DOSE: 1546.15 mGycm HISTORY: hypoxic ? infiltrates TECHNIQUE: Multiaxial CT images of the chest, abdomen, and pelvis were performed without contrast. A dose lowering technique was utilized adhering to the principles of ALARA. COMPARISON: None. FINDINGS: Chest CT: Mild respiratory motion artifact. The central airways are patent. No pneumothorax. No pleur al effusions. A few bibasilar linear densities. This favors subsegmental atelectasis. There is a smal l linear scarlike density within the right lung apex medially. Otherwise, no focal lung consolidation s to suggest pneumonia. No evidence for pulmonary edema. Old, healed right-sided rib fractures. Mild calcified plaque within the thoracic aorta. The ascending thoracic aorta measures up to [address] The heart is mildly enlarged. No pericardial effusions. Normal caliber esophagus. No mediastinal or hilar lymphadenopathy. Abdomen/pelvis CT: No pneumoperitoneum. No pneumatosis. No suspicious lytic or blastic osseous lesion s. A few small nodules within the right breast with the largest measuring 13 mm. Partial left mastect nicolle is noted. There is severe gallbladder wall thickening with extensive surrounding inflammatory bell nge and multiple punctate gallstones. Findings are consistent with acute cholecystitis and could repr esent early gangrenous change. The unenhanced liver, pancreas, and left adrenal gland are unremarkabl e. There is a 7 mm right adrenal gland nodule. No renal or ureteral stones. No hydronephrosis. There is a 3.3 cm hypodense lesion within the splenic dome. This is incompletely characterized on this nonc ontrast study. Normal caliber abdominal aorta. Mildly enlarged periportal lymph nodes are likely reac tive to the acute cholecystitis. Mild hepatic steatosis. Thickening at the proximal duodenum is likel y reactive to the adjacent acute cholecystitis. The bladder is decompressed by Villarreal catheter. The ut erus is surgically absent. Suboptimal evaluation for bowel pathology due to the lack of intravenous a nd oral contrast. However, there are no dilated loops of bowel to suggest an obstruction. A few colon ic diverticula. No evidence for acute diverticulitis. Normal appendix. IMPRESSION: 1. Severe gallbladder wall thickening with extensive surrounding inflammatory change and multiple sma ll gallstones. Findings are consistent with acute cholecystitis and could represent early gangrenous change. Surgical consultation recommended. 2. No focal lung consolidations to suggest pneumonia. 3. The ascending thoracic aorta measures up to 4 cm in diameter. 4. A few small right breast nodules measure up to 13 mm. Nonemergent mammogram follow-up recommended. 5. A 3.3 hypodense splenic lesion. This is incompletely characters on this noncontrast study. Statist ically this represents a benign lesion. 6. Additional findings as described above. ACT 112: Negative or not required by law. Electronically signed by: Norman Otto M.D. 11/19/2020 3:59 PM
[2020-11-19] MEDS ORDERED: metroNIDAZOLE 500 MG/100 ML BAG IV STA (16:16)
--- NOTE | 2020-11-19 17:04 | Surgery Consultation ---
Date of Consultation November 19, 2020 Assessment & Plan (1) Sepsis: (2) Cholangitis: pt is a 80 year-old female who presents to Er with 3-4 days history epigastric pain with back pain, IMP: sepsis, cholangitis, acute cholecystitis, cholelithiasis, acute renal dysfunction Plan, hospitalist will admit pt to hospital, consult GI doctor for possible emergent ERCP for obstructed CBD stone, IV fluid, IV antibiotic, U/S study for gallbladder and HIDA scan tomorrow, repeat labs CBC, CMP in morning, Thanks, possible do laparoscopic cholecystectomy in 1-2 days so, pt and her agree with the plan, D/W ER attending, will F/U, Thanks, Present on Admission?: Yes (3) Acute cholecystitis due to biliary calculus: History of Present Illness History of Present Illness CHIEF COMPLAINT: Abdominal pain HPI: Patient is a 80-year-old female who presents the ER for epigastric abdominal pain and back pain. This started this past weekend. She notes the pain lasted for about 3 days now has completely resolved. She does have nausea and diarrhea. Diarrhea has resolved. She denies any cough but notes that she may be slightly short of breath. Denies any chest pain. Patient denies any nausea vomiting or diarrhea. She does admit to some dysuria and urgency. No other exacerbating or remitting factors. I ( Elva Macdonald MD) got a call for consult sepsis and acute cholecystitis, I reviewed pt's H/P, labs, CT scan with pt and her , pt denies abdominal pain, no nausea, no vomiting, ROS: See above HPI for pertinent positives & negatives. A total of 10 systems r eviewed and were otherwise negative. PAST MEDICAL HISTORY: See Below PAST SURGICAL HISTORY: See Below FAMILY HISTORY: See Below SOCIAL HISTORY: See Below HOME MEDICATIONS: See Below ALLERGIES: See Below Allergies Allergy/AdvReac Type Severity Reaction Status Date / Time rosiglitazone Allergy Mild UNKNOWN-RELATED Verified 11/19/20 16:08 POSS TO DVT/PE PER MEDICAL RECORD acetaminophen Allergy Unknown HIVES Verified 11/19/20 16:08 latex Allergy Unknown "Tape Verified 11/19/20 16:08 causes redness" Penicillins Allergy Unknown SOB Unverified 11/19/20 16:08 ,THROAT SHUT,COULDN'T BREATHE tramadol Allergy Unknown UNKNOWN Verified 11/19/20 16:08 Home Medications Medication Instructions Recorded Confirmed Type anastrozole 1 mg tablet 1 mg PO DAILY 06/12/20 11/19/20 History clindamycin phosphate 1 % topical 1 appln TOP BID 06/12/20 11/19/20 History gel cyanocobalamin (vitamin B-12) 1,000 mcg PO DAILY 06/12/20 11/19/20 History 1,000 mcg tablet cyclobenzaprine 10 mg tablet 10 mg PO BID tab 06/12/20 11/19/20 History fluticasone propionate 50 2 sprays INTNAS DAILY 06/12/20 11/19/20 History mcg/actuation nasal spray,suspension furosemide 40 mg tablet 40 mg PO TUTHSA 06/12/20 11/19/20 History glipizide 5 mg tablet 5 mg PO BID 06/12/20 11/19/20 History insulin glargine 100 unit/mL 40 units SQ QAM 06/12/20 11/19/20 History subcutaneous solution insulin glargine 100 unit/mL 42 units SQ QPM ml 06/12/20 11/19/20 History subcutaneous solution lisinopril 10 mg tablet 10 mg PO DAILY 06/12/20 11/19/20 History metformin 1,000 mg tablet 1,000 mg PO BID 06/12/20 11/19/20 History metoprolol tartrate 100 mg tablet 100 mg PO BID 06/12/20 11/19/20 History potassium chloride 20 mEq 20 meq PO .DAILY UD 06/12/20 11/19/20 History tablet,extended release pregabalin 200 mg capsule 200 mg PO BID 06/12/20 11/19/20 History warfarin 7.5 mg tablet See Rx Instructions PO DAILY tab 06/12/20 11/19/20 History acetaminophen [Tylenol] 325 mg PO Q4 PRN 11/19/20 11/19/20 History cholecalciferol (vitamin D3) 25 - 50 mcg PO DAILY 11/19/20 11/19/20 History [Vitamin D3] furosemide [Lasix] 80 mg PO SUMOWEFRSA 11/19/20 11/19/20 History meclizine 25 mg PO TID PRN 11/19/20 11/19/20 History turmeric root extract 500 mg PO DAILY 11/19/20 11/19/20 History Patient History Medical History (Updated 11/19/20 @ 17:05 by Elva Macdonald MD) Acquired claw toe of left foot Acquired claw toe of right foot Age-related osteoporosis without current pathological fracture Atrial paroxysmal tachycardia Bilateral primary osteoarthritis of knee Bilateral swelling of feet Callus Diabetes mellitus with neuropathy Diabetic peripheral neuropathy Esophagitis, reflux Essential (primary) hypertension Generalized OA H/O 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 Lymphedema, not elsewhere classified Malignant neoplasm of upper-outer quadrant of left female breast Morbid (severe) obesity due to excess calories Obstructive sleep apnea (adult) (pediatric) Other pulmonary embolism without acute cor pulmonale Pain of right foot 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 Vitamin D insufficiency Surgical History Previous back surgery S/P hysterectomy S/P right rotator cuff repair Social History (Updated 06/12/20 @ 14:53 by Sangita Menezes, [place]) Smoking Status: Never smoker Hx Alcohol Use: No Hx Substance Use: No Preferred Language: Kazakh Visual Impairment: Limited Hearing Ability: Normal Beliefs That Will Affect Care: None marital status: Current Living Situation: Spouse current occupational status: retired Feels Safe at Home: Yes Review of Systems Review of Systems: All systems reviewed & are unremarkable except as noted in HPI & below Constitutional: as per Subjective / HPI obesity Eyes: as per Subjective / HPI Ear, Nose, Mouth, Throat: as per Subjective / HPI Respiratory: as per Subjective / HPI Cardiovascular: as per Subjective / HPI Additional Comments: PAD, chronic venous insufficiency Gastrointestinal: as per Subjective / HPI Genitourinary: as per Subjective / HPI breast cancer Musculoskeletal: as per Subjective / HPI Integumentary: as per Subjective / HPI Neurologic: as per Subjective / HPI Psychiatric: as per Subjective / HPI Endocrine: as per Subjective / HPI DM Physical Exam Constitutional: WD/WN, vitals as above well developed and well nourished Eyes: PERRL, conjunctivae normal, anicteric sclerae ENMT: external ear and nose normal, oropharynx normal Neck: trachea midline, no thyromegaly Respiratory: normal respiratory effort, lungs clear to auscultation normal respiratory effort Cardiovascular: RRR, no murmur, no edema Rate/Rhythm: regular rate and regular rhythm Heart Sounds: normal S1 and normal S2 Gastrointestinal (Abdomen): normal bowel sounds, soft, nontender, no hepatosplenomegaly Percussion/Palpation: abdomen soft no tenderness, no distend, BS + Musculoskeletal: no cyanosis or clubbing, extremities motor strength 5/5 Skin: no rashes, warm and dry Neurologic: awake Psychiatric: Orientation: alert and oriented x 3 Results & Data ([facility]) Vital Signs (Past 12 Hours) Vital Signs Temp Pulse Pulse Resp BP BP Pulse Ox 11/19/20 16:30 98 H 25 H 119/63 98 11/19/20 16:20 96 H 27 H 116/61 96 11/19/20 16:01 100 H 28 H 97/58 L 96 11/19/20 15:58 37.9 C H 11/19/20 15:30 110 H 28 H 95 11/19/20 15:00 101 H 30 H 100 11/19/20 14:39 103 H 20 97 11/19/20 14:30 103 H 20 107/64 93 11/19/20 14:18 100 H 20 97 11/19/20 14:00 101 H 24 98 11/19/20 13:42 100 H 24 113/77 80 L 11/19/20 13:35 39.2 C H 103 H 24 104/52 L 80 L 11/19/20 13:32 104 H 20 97 11/19/20 13:30 103 H 24 113/77 96 11/19/20 13:29 104 H 20 104/52 L 96 11/19/20 13:25 101 H 20 98 Laboratory Results Abnormal lab results 11/19/20 11/19/20 11/19/20 Range/Units 13:25 13:25 13:25 WBC 22.42 H (4.8-10.8) K/uL MCHC 31.5 L (32-36) g/dL RDW Std Deviation 50.0 H (36.4-46.3) fL RDW Coeff of [place] 15.3 H (11.5-14.5) % MPV 11.8 H (7.4-10.4) fL Neut # (Auto) 19.11 H (1.4-6.5) K/uL [place] # (Auto) 1.48 H (0.11-0.59) K/uL Immature Gran # (Auto) 0.29 H (0.00-0.02) K/uL PT 15.1 H (9.0-12.0) Seconds INR 1.5 H (0.9-1.1) APTT 37.5 H (21.0-31.0) Seconds VBG pH (7.36-7.41) VBG pCO2 (38-50) mmHg Sodium 132 L (136-145) mmol/L Chloride 95 L (98-107) mmol/L BUN 39 H (7-18) mg/dl Creatinine 1.71 H (0.6-1.2) mg/dl BUN/Creatinine Ratio 22.8 H (10-20) Glucose 293 H (70-99) mg/dl Lactate (0.4-2.0) mmol/L Total Bilirubin 1.4 H (0.2-1) mg/dl AST 12 L (15-37) U/L Troponin I 0.067 H* (0-0.045) ng/ml Albumin 2.5 L (3.4-5.0) gm/dl Globulin 5.1 H (2.5-4.0) gm/dl Albumin/Globulin Ratio 0.5 L (0.9-2) Procalcitonin (0-0.5) ng/ml Urine Appearance (Clear) Urine Protein (Negative) Urine Blood (Negative) Urine Bilirubin (Negative) Ur Leukocyte Esterase (Negative) Urine WBC (Auto) (0-5) /hpf U Hyaline Cast (Auto) (0-5) /lpf U Epithel Cells (Auto) (0-5) /lpf Urine Bacteria (Auto) (Negative) Granular Casts (0) /lpf 11/19/20 11/19/20 11/19/20 Range/Units 13:25 13:27 13:27 WBC (4.8-10.8) K/uL MCHC (32-36) g/dL RDW Std Deviation (36.4-46.3) fL RDW Coeff of [place] (11.5-14.5) % MPV (7.4-10.4) fL Neut # (Auto) (1.4-6.5) K/uL [place] # (Auto) (0.11-0.59) K/uL Immature Gran # (Auto) (0.00-0.02) K/uL PT (9.0-12.0) Seconds INR (0.9-1.1) APTT (21.0-31.0) Seconds VBG pH 7.35 L (7.36-7.41) VBG pCO2 53 H (38-50) mmHg Sodium (136-145) mmol/L Chloride (98-107) mmol/L BUN (7-18) mg/dl Creatinine (0.6-1.2) mg/dl BUN/Creatinine Ratio (10-20) Glucose (70-99) mg/dl Lactate 2.5 H* (0.4-2.0) mmol/L Total Bilirubin (0.2-1) mg/dl AST (15-37) U/L Troponin I (0-0.045) ng/ml Albumin (3.4-5.0) gm/dl Globulin (2.5-4.0) gm/dl Albumin/Globulin Ratio (0.9-2) Procalcitonin 11.02 H (0-0.5) ng/ml Urine Appearance (Clear) Urine Protein (Negative) Urine Blood (Negative) Urine Bilirubin (Negative) Ur Leukocyte Esterase (Negative) Urine WBC (Auto) (0-5) /hpf U Hyaline Cast (Auto) (0-5) /lpf U Epithel Cells (Auto) (0-5) /lpf Urine Bacteria (Auto) (Negative) Granular Casts (0) /lpf 11/19/20 Range/Units 14:42 WBC (4.8-10.8) K/uL MCHC (32-36) g/dL RDW Std Deviation (36.4-46.3) fL RDW Coeff of [place] (11.5-14.5) % MPV (7.4-10.4) fL Neut # (Auto) (1.4-6.5) K/uL [place] # (Auto) (0.11-0.59) K/uL Immature Gran # (Auto) (0.00-0.02) K/uL PT (9.0-12.0) Seconds INR (0.9-1.1) APTT (21.0-31.0) Seconds VBG pH (7.36-7.41) VBG pCO2 (38-50) mmHg Sodium (136-145) mmol/L Chloride (98-107) mmol/L BUN (7-18) mg/dl Creatinine (0.6-1.2) mg/dl BUN/Creatinine Ratio (10-20) Glucose (70-99) mg/dl Lactate (0.4-2.0) mmol/L Total Bilirubin (0.2-1) mg/dl AST (15-37) U/L Troponin I (0-0.045) ng/ml Albumin (3.4-5.0) gm/dl Globulin (2.5-4.0) gm/dl Albumin/Globulin Ratio (0.9-2) Procalcitonin (0-0.5) ng/ml Urine Appearance Turbid A (Clear) Urine Protein 1+ H (Negative) Urine Blood Trace H (Negative) Urine Bilirubin 1+ H (Negative) Ur Leukocyte Esterase 3+ H (Negative) Urine WBC (Auto) >30 H (0-5) /hpf U Hyaline Cast (Auto) 5-10 H (0-5) /lpf U Epithel Cells (Auto) >30 H (0-5) /lpf Urine Bacteria (Auto) 3+ H (Negative) Granular Casts 1-5 H (0) /lpf Diagnostic Findings CT chest diagnostic wo con, CT abd pelvis wo con CT DOSE: 1546.15 mGycm HISTORY: hypoxic ? infiltrates TECHNIQUE: Multiaxial CT images of the chest, abdomen, and pelvis were performed without contrast. A dose lowering technique was utilized adhering to the principles of ALARA. COMPARISON: None. FINDINGS: Chest CT: Mild respiratory motion artifact. The central airways are patent. No pneumothorax. No pleural effusions. A few bibasilar linear densities. This favors subsegmental atelectasis. There is a small linear scarlike density within the right lung apex medially. Otherwise, no focal lung consolidations to suggest pneumonia. No evidence for pulmonary edema. Old, healed right-sided rib fractures. Mild calcified plaque within the thoracic aorta. The ascending thoracic aorta measures up to 4 cm in diameter. The heart is mildly enlarged. No pericardial effusions. Normal caliber esophagus. No mediastinal or hilar lymphadenopathy. Abdomen/pelvis CT: No pneumoperitoneum. No pneumatosis. No suspicious lytic or blastic osseous lesions. A few small nodules within the right breast with the largest measuring 13 mm. Partial left mastectomy is noted. There is severe gallbladder wall thickening with extensive surrounding inflammatory change and multiple punctate gallstones. Findings are consistent with acute cholecystitis and could represent early gangrenous change. The unenhanced liver, pancreas, and left adrenal gland are unremarkable. There is a 7 mm right adrenal gland nodule. No renal or ureteral stones. No hydronephrosis. There is a 3.3 cm hypodense lesion within the splenic dome. This is incompletely characterized on this noncontrast study. Normal caliber abdominal aorta. Mildly enlarged periportal lymph nodes are likely reactive to the acute cholecystitis. Mild hepatic steatosis. Thickening at the proximal duodenum is likely reactive to the adjacent acute cholecystitis. The bladder is decompressed by Villarreal catheter. The uterus is surgically absent. Suboptimal evaluation for bowel pathology due to the lack of intravenous and oral contrast. However, there are no dilated loops of bowel to suggest an obstruction. A few colonic diverticula. No evidence for acute diverticulitis. Normal appendix. IMPRESSION: 1. Severe gallbladder wall thickening with extensive surrounding inflammatory change and multiple small gallstones. Findings are consistent with acute cholecystitis and could represent early gangrenous change. Surgical consultation recommended. 2. No focal lung consolidations to suggest pneumonia. 3. The ascending thoracic aorta measures up to 4 cm in diameter. 4. A few small right breast nodules measure up to 13 mm. Nonemergent mammogram follow-up recommended. 5. A 3.3 hypodense splenic lesion. This is incompletely characters on this noncontrast study. Statistically this represents a benign lesion. 6. Additional findings as described above.
[2020-11-19] MEDS ORDERED: IOVERSOL 50ml IV ONE (18:21)
--- NOTE | 2020-11-19 18:26 | Anesthesiology Consultation ---
Date of Service November 19, 2020 Assessment & Plan (1) Encounter for pre-operative examination: Chart Review Chart Review: Acceptable Risk for Surgery (covid negative today) History Height/Weight Height: 5 ft 4 in Weight: 125.3 kg Allergies Allergy/AdvReac Type Severity Reaction Status Date / Time rosiglitazone Allergy Mild UNKNOWN-RELATED Verified 11/19/20 16:08 POSS TO DVT/PE PER MEDICAL RECORD acetaminophen Allergy Unknown HIVES Verified 11/19/20 16:08 latex Allergy Unknown "Tape Verified 11/19/20 16:08 causes redness" Penicillins Allergy Unknown SOB Unverified 11/19/20 16:08 ,THROAT SHUT,COULDN'T BREATHE tramadol Allergy Unknown UNKNOWN Verified 11/19/20 16:08 Medications Home Medications Medication Instructions Recorded Confirmed Last Taken anastrozole 1 mg tablet 1 mg PO DAILY 06/12/20 11/19/20 Unknown clindamycin phosphate 1 % topical 1 appln TOP BID 06/12/20 11/19/20 Unknown gel cyanocobalamin (vitamin B-12) 1,000 mcg PO DAILY 06/12/20 11/19/20 Unknown 1,000 mcg tablet cyclobenzaprine 10 mg tablet 10 mg PO BID tab 06/12/20 11/19/20 Unknown fluticasone propionate 50 2 sprays INTNAS DAILY 06/12/20 11/19/20 Unknown mcg/actuation nasal spray,suspension furosemide 40 mg tablet 40 mg PO TUTHSA 06/12/20 11/19/20 Unknown glipizide 5 mg tablet 5 mg PO BID 06/12/20 11/19/20 Unknown insulin glargine 100 unit/mL 40 units SQ QAM 06/12/20 11/19/20 Unknown subcutaneous solution insulin glargine 100 unit/mL 42 units SQ QPM ml 06/12/20 11/19/20 Unknown subcutaneous solution lisinopril 10 mg tablet 10 mg PO DAILY 06/12/20 11/19/20 Unknown metformin 1,000 mg tablet 1,000 mg PO BID 06/12/20 11/19/20 Unknown metoprolol tartrate 100 mg tablet 100 mg PO BID 06/12/20 11/19/20 Unknown potassium chloride 20 mEq 40 meq PO SUMOWEFR 06/12/20 11/19/20 Unknown tablet,extended release pregabalin 200 mg capsule 200 mg PO BID 06/12/20 11/19/20 Unknown acetaminophen [Tylenol] 325 mg PO Q4 PRN 11/19/20 11/19/20 Unknown cholecalciferol (vitamin D3) 50 mcg PO Q2D 11/19/20 11/19/20 Unknown cholecalciferol (vitamin D3) 25 mcg PO Q2D 11/19/20 11/19/20 Unknown [Vitamin D3] furosemide [Lasix] 80 mg PO SUMOWEFR 11/19/20 11/19/20 Unknown meclizine 25 mg PO TID PRN 11/19/20 11/19/20 Unknown potassium chloride 20 meq PO TUTHSA 11/19/20 11/19/20 Unknown turmeric root extract 500 mg PO DAILY 11/19/20 11/19/20 Unknown warfarin 5 mg PO SUTUWETHSA 11/19/20 11/19/20 Unknown warfarin 7.5 mg PO MOFR 11/19/20 11/19/20 Unknown Past Medical History Medical History (Updated 11/19/20 @ 18:33 by Dario Siddiqi MD) Atrial paroxysmal tachycardia Diabetes mellitus with neuropathy Esophagitis, reflux Essential (primary) hypertension 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 Lymphedema, not elsewhere classified Malignant neoplasm of upper-outer quadrant of left female breast Morbid (severe) obesity due to excess calories Obstructive sleep apnea (adult) (pediatric) Other pulmonary embolism without acute cor pulmonale Pain of right foot Type 2 diabetes mellitus with other diabetic kidney complication Vitamin D insufficiency Past Surgical History Surgical History Previous back surgery S/P hysterectomy S/P right rotator cuff repair Social History Smoking Status: Never smoker Hx Alcohol Use: No Hx Substance Use: No Physical Exam Vital Signs Last Vital Signs Temp 37.9 C H 11/19/20 15:58 Pulse 96 H 11/19/20 18:00 Resp 26 H 11/19/20 18:00 BP 109/54 L 11/19/20 18:00 Pulse Ox 96 11/19/20 18:00 Testing Laboratory Results 11/19/20 13:25 11/19/20 13:25 PT 15.1 Seconds (9.0-12.0) H 11/19/20 13:25 INR 1.5 (0.9-1.1) H 11/19/20 13:25 APTT 37.5 Seconds (21.0-31.0) H 11/19/20 13:25 Urine Color Dark Yellow 11/19/20 14:42 Urine Appearance Turbid (Clear) A 11/19/20 14:42 Urine pH 5.0 (4.5-7.5) 11/19/20 14:42 Ur Specific [place] 1.016 (1.000-1.030) 11/19/20 14:42 Urine Protein 1+ (Negative) H 11/19/20 14:42 Urine Glucose (UA) Negative (Negative) 11/19/20 14:42 Urine Ketones Negative (Negative) 11/19/20 14:42 Urine Nitrite Negative (Negative) 11/19/20 14:42 Ur Leukocyte Esterase 3+ (Negative) H 11/19/20 14:42 Urine WBC (Auto) >30 /hpf (0-5) H 11/19/20 14:42 Urine RBC (Auto) 0-4 /hpf (0-4) 11/19/20 14:42 U Hyaline Cast (Auto) 5-10 /lpf (0-5) H 11/19/20 14:42 U Epithel Cells (Auto) >30 /lpf (0-5) H 11/19/20 14:42 Urine Bacteria (Auto) 3+ (Negative) H 11/19/20 14:42
[2020-11-19] MEDS ORDERED: LARYING-O-JET KIT (LTA) ONE ×2 (18:44→20:28)
[2020-11-19] MEDS ORDERED: MIDAZOLAM HCL 1 MG/ML 2ML VIAL ONE (18:44)
[2020-11-19] MEDS ORDERED: ONDANSETRON INJ 2 MG/ML 2 ML VIAL ONE (18:44)
[2020-11-19] MEDS ORDERED: SUCCINYLCHOLINE CHLORIDE 20 MG/ML 10 ML VIAL IV ONE (18:44)
[2020-11-19] MEDS ORDERED: fentaNYL citrate 100 MCG/2 ML VIAL ONE ×2 (18:44→20:28)
[2020-11-19] MEDS ORDERED: PHENYLEPHRINE 100MCG/ML 5ML SYR ONE (18:44)
[2020-11-19] MEDS ORDERED: PROPOFOL IV EMULSION 10 MG/ML 20 ML VIAL IV ONE (18:44)
[2020-11-19] MEDS ORDERED: LIDOCAINE HCL 2% 2 ML VIAL/AMP(20MG/ML) INFIL ONE (18:44)
[2020-11-19] MEDS ORDERED: ePHEDrine sulfate 50 MG/ML SYR ONE (18:44)
[2020-11-19] MEDS ORDERED: PROMETHAZINE HCL 6.25 MG in SODIUM CHLORIDE 0.9% 50 ML IV PRN (19:23)
[2020-11-19] MEDS ORDERED: ATROPINE SULFATE 0.1 MG/ML 10ML SYR IV PRN (19:23)
[2020-11-19] MEDS ORDERED: ONDANSETRON INJ 2 MG/ML 2 ML VIAL IV PRN (19:23)
[2020-11-19] MEDS ORDERED: fentaNYL citrate 100 MCG/2 ML VIAL IV PRN (19:23)
--- NOTE | 2020-11-19 19:28 | Gastrointestinal Consultation ---
Date of Consultation November 19, 2020 Assessment & Plan (1) Cholangitis: Patient with calculous cholecystitis and concern for cholangitis, plan for urgent ERCP. History of Present Illness Attending Physician: Keara Russell MD 80 years old female patient with medical comorbids of PE on Coumadin, DM, presented with abdominal pain and nausea for few days, found to have acute cholecystitis on CT scan however she has elevated bilirubin concerning for cholangitis. She has fever, chills and signs of SIRS. Allergies Allergy/AdvReac Type Severity Reaction Status Date / Time rosiglitazone Allergy Mild UNKNOWN-RELATED Verified 11/19/20 16:08 POSS TO DVT/PE PER MEDICAL RECORD acetaminophen Allergy Unknown HIVES Verified 11/19/20 16:08 latex Allergy Unknown "Tape Verified 11/19/20 16:08 causes redness" Penicillins Allergy Unknown SOB Unverified 11/19/20 16:08 ,THROAT SHUT,COULDN'T BREATHE tramadol Allergy Unknown UNKNOWN Verified 11/19/20 16:08 Home Medications Medication Instructions Recorded Confirmed Type anastrozole 1 mg tablet 1 mg PO DAILY 06/12/20 11/19/20 History clindamycin phosphate 1 % topical 1 appln TOP BID 06/12/20 11/19/20 History gel cyanocobalamin (vitamin B-12) 1,000 mcg PO DAILY 06/12/20 11/19/20 History 1,000 mcg tablet cyclobenzaprine 10 mg tablet 10 mg PO BID tab 06/12/20 11/19/20 History fluticasone propionate 50 2 sprays INTNAS DAILY 06/12/20 11/19/20 History mcg/actuation nasal spray,suspension furosemide 40 mg tablet 40 mg PO TUTHSA 06/12/20 11/19/20 History glipizide 5 mg tablet 5 mg PO BID 06/12/20 11/19/20 History insulin glargine 100 unit/mL 40 units SQ QAM 06/12/20 11/19/20 History subcutaneous solution insulin glargine 100 unit/mL 42 units SQ QPM ml 06/12/20 11/19/20 History subcutaneous solution lisinopril 10 mg tablet 10 mg PO DAILY 06/12/20 11/19/20 History metformin 1,000 mg tablet 1,000 mg PO BID 06/12/20 11/19/20 History metoprolol tartrate 100 mg tablet 100 mg PO BID 06/12/20 11/19/20 History potassium chloride 20 mEq 40 meq PO SUMOWEFR 06/12/20 11/19/20 History tablet,extended release pregabalin 200 mg capsule 200 mg PO BID 06/12/20 11/19/20 History acetaminophen [Tylenol] 325 mg PO Q4 PRN 11/19/20 11/19/20 History cholecalciferol (vitamin D3) 50 mcg PO Q2D 11/19/20 11/19/20 History cholecalciferol (vitamin D3) 25 mcg PO Q2D 11/19/20 11/19/20 History [Vitamin D3] furosemide [Lasix] 80 mg PO SUMOWEFR 11/19/20 11/19/20 History meclizine 25 mg PO TID PRN 11/19/20 11/19/20 History potassium chloride 20 meq PO TUTHSA 11/19/20 11/19/20 History turmeric root extract 500 mg PO DAILY 11/19/20 11/19/20 History warfarin 5 mg PO SUTUWETHSA 11/19/20 11/19/20 History warfarin 7.5 mg PO MOFR 11/19/20 11/19/20 History Patient History Medical History (Updated 11/19/20 @ 19:11 by OSCAR De Souza) Atrial paroxysmal tachycardia Chronic venous insufficiency Diabetes mellitus with neuropathy DM type 2 (diabetes mellitus, type 2) Esophagitis, reflux Essential (primary) hypertension Generalized OA 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 pulmonary 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 Lymphedema, not elsewhere classified Malignant neoplasm of upper-outer quadrant of left female breast Morbid (severe) obesity due to excess calories Obstructive sleep apnea (adult) (pediatric) PAD (peripheral artery disease) Vitamin D insufficiency Surgical History (Updated 11/19/20 @ 19:11 by OSCAR De Souza) H/O left mastectomy Previous back surgery S/P hysterectomy S/P right rotator cuff repair Social History (Updated 06/12/20 @ 14:53 by Sangita Menezes RN) Smoking Status: Never smoker Hx Alcohol Use: No Hx Substance Use: No Preferred Language: Thai Visual Impairment: Limited Hearing Ability: Normal Beliefs That Will Affect Care: None marital status: Current Living Situation: Spouse current occupational status: retired Feels Safe at Home: Yes Review of Systems Constitutional: + fever and + chills; no fatigue and no weight loss Eyes: no eye pain and no worsening vision Ear, Nose, Mouth, Throat: no tinnitus, no dizziness, no nasal discharge and no epistaxis Respiratory: no cough, no dyspnea, no dyspnea on exertion and no wheezing Cardiovascular: no chest pain, no orthopnea, no palpitations and no edema Gastrointestinal: as per Subjective / HPI Genitourinary: no dysuria, no urinary frequency, no urinary incontinence and no hematuria Musculoskeletal: no stiffness and no myalgia Neurologic: no localized weakness, no paralysis, no tremor(s) and no h eadache(s) Endocrine: no polydipsia and no polyuria Hematologic / Lymphatic: no easy bleeding and no night sweats Physical Exam Constitutional: + well hydrated, cooperative and comfortable Eyes: PERRL, conjunctivae normal, anicteric sclerae ENMT: external ear and nose normal, oropharynx normal Neck: normal visual inspection and trachea midline Respiratory: normal respiratory effort, lungs clear to auscultation Auscultation: no wheezes Cardiovascular: RRR, no murmur, no edema Gastrointestinal (Abdomen): normal bowel sounds, soft, nontender, no hepatosplenomegaly Musculoskeletal: no cyanosis or clubbing, extremities motor strength 5/5 Skin: no rashes, warm and dry Neurologic: awake; no focal motor deficits Motor/Sensory: no tremor Results & Data ([facility]) Vital Signs (Past 12 Hours) Vital Signs Temp Pulse Pulse Resp BP BP Pulse Ox 11/19/20 18:30 97 H 26 H 108/60 94 11/19/20 18:00 96 H 26 H 109/54 L 96 11/19/20 17:31 95 H 24 108/62 94 11/19/20 17:00 96 H 24 99/64 L 95 11/19/20 16:30 98 H 25 H 119/63 98 11/19/20 16:20 96 H 27 H 116/61 96 11/19/20 16:01 100 H 28 H 97/58 L 96 11/19/20 15:58 37.9 C H 11/19/20 15:30 110 H 28 H 95 11/19/20 15:00 101 H 30 H 100 11/19/20 14:39 103 H 20 97 11/19/20 14:30 103 H 20 107/64 93 11/19/20 14:18 100 H 20 97 11/19/20 14:00 101 H 24 98 11/19/20 13:42 100 H 24 113/77 80 L 11/19/20 13:35 39.2 C H 103 H 24 104/52 L 80 L 11/19/20 13:32 104 H 20 97 11/19/20 13:30 103 H 24 113/77 96 11/19/20 13:29 104 H 20 104/52 L 96 11/19/20 13:25 101 H 20 98 Laboratory Results Laboratory Results - last 24 hr 11/19/20 11/19/20 11/19/20 13:25 13:25 13:25 WBC 22.42 H RBC 4.84 Hgb 13.5 Hct 42.8 MCV 88.4 MCH 27.9 MCHC 31.5 L RDW Std Deviation 50.0 H RDW Coeff of [place] 15.3 H Plt Count 242 MPV 11.8 H Immature Gran % (Auto) 1.3 Neut % (Auto) 85.3 Lymph % (Auto) 6.7 [place] % (Auto) 6.6 Eos % (Auto) 0.0 Baso % (Auto) 0.1 Neut # (Auto) 19.11 H Lymph # (Auto) 1.51 [place] # (Auto) 1.48 H Eos # (Auto) 0.00 Baso # (Auto) 0.03 Immature Gran # (Auto) 0.29 H PT 15.1 H INR 1.5 H APTT 37.5 H PTT Ratio 1.3 VBG pH VBG pCO2 VBG pO2 VBG HCO3 VBG O2 Saturation VBG Base Excess Barometric Pressure Sodium 132 L Potassium 4.2 Chloride 95 L Carbon Dioxide 30 Anion Gap 7.0 BUN 39 H Creatinine 1.71 H Est Cr Clr Drug Dosing 35.5 Est GFR ( Amer) 32.7 Est GFR (Non-Af Amer) 28.2 BUN/Creatinine Ratio 22.8 H Glucose 293 H Lactate Calcium 8.7 Magnesium 2.0 Total Bilirubin 1.4 H AST 12 L ALT 14 Alkaline Phosphatase 56 Troponin I 0.067 H* Total Protein 7.6 Albumin 2.5 L Globulin 5.1 H Albumin/Globulin Ratio 0.5 L Lipase Procalcitonin Urine Color Urine Appearance Urine pH Ur Specific [place] Urine Protein Urine Glucose (UA) Urine Ketones Urine Blood Urine Nitrite Urine Bilirubin Urine Urobilinogen Ur Leukocyte Esterase Urine WBC (Auto) Urine RBC (Auto) U Hyaline Cast (Auto) U Epithel Cells (Auto) Urine Bacteria (Auto) Granular Casts COVID-19 Eval Order SARS-CoV-2, RNA, NAAT 11/19/20 11/19/20 11/19/20 13:25 13:25 13:27 WBC RBC Hgb Hct MCV MCH MCHC RDW Std Deviation RDW Coeff of [place] Plt Count MPV Immature Gran % (Auto) Neut % (Auto) Lymph % (Auto) [place] % (Auto) Eos % (Auto) Baso % (Auto) Neut # (Auto) Lymph # (Auto) [place] # (Auto) Eos # (Auto) Baso # (Auto) Immature Gran # (Auto) PT INR APTT PTT Ratio VBG pH VBG pCO2 VBG pO2 VBG HCO3 VBG O2 Saturation VBG Base Excess Barometric Pressure Sodium Potassium Chloride Carbon Dioxide Anion Gap BUN Creatinine Est Cr Clr Drug Dosing Est GFR ( Amer) Est GFR (Non-Af Amer) BUN/Creatinine Ratio Glucose Lactate 2.5 H* Calcium Magnesium Total Bilirubin AST ALT Alkaline Phosphatase Troponin I Total Protein Albumin Globulin Albumin/Globulin Ratio Lipase 81 Procalcitonin 11.02 H Urine Color Urine Appearance Urine pH Ur Specific [place] Urine Protein Urine Glucose (UA) Urine Ketones Urine Blood Urine Nitrite Urine Bilirubin Urine Urobilinogen Ur Leukocyte Esterase Urine WBC (Auto) Urine RBC (Auto) U Hyaline Cast (Auto) U Epithel Cells (Auto) Urine Bacteria (Auto) Granular Casts COVID-19 Eval Order SARS-CoV-2, RNA, NAAT 11/19/20 11/19/20 11/19/20 13:27 14:42 15:10 WBC RBC Hgb Hct MCV MCH MCHC RDW Std Deviation RDW Coeff of [place] Plt Count MPV Immature Gran % (Auto) Neut % (Auto) Lymph % (Auto) [place] % (Auto) Eos % (Auto) Baso % (Auto) Neut # (Auto) Lymph # (Auto) [place] # (Auto) Eos # (Auto) Baso # (Auto) Immature Gran # (Auto) PT INR APTT PTT Ratio VBG pH 7.35 L VBG pCO2 53 H VBG pO2 33 VBG HCO3 29 VBG O2 Saturation 64.0 VBG Base Excess 2.2 Barometric Pressure 733.7 Sodium Potassium Chloride Carbon Dioxide Anion Gap BUN Creatinine Est Cr Clr Drug Dosing Est GFR ( Amer) Est GFR (Non-Af Amer) BUN/Creatinine Ratio Glucose Lactate Calcium Magnesium Total Bilirubin AST ALT Alkaline Phosphatase Troponin I Total Protein Albumin Globulin Albumin/Globulin Ratio Lipase Procalcitonin Urine Color Dark Yellow Urine Appearance Turbid A Urine pH 5.0 Ur Specific [place] 1.016 Urine Protein 1+ H Urine Glucose (UA) Negative Urine Ketones Negative Urine Blood Trace H Urine Nitrite Negative Urine Bilirubin 1+ H Urine Urobilinogen Negative Ur Leukocyte Esterase 3+ H Urine WBC (Auto) >30 H Urine RBC (Auto) 0-4 U Hyaline Cast (Auto) 5-10 H U Epithel Cells (Auto) >30 H Urine Bacteria (Auto) 3+ H Granular Casts 1-5 H COVID-19 Eval [facility] SARS-CoV-2, RNA, NAAT 11/19/20 11/19/20 15:10 15:54 WBC RBC Hgb Hct MCV MCH MCHC RDW Std Deviation RDW Coeff of [place] Plt Count MPV Immature Gran % (Auto) Neut % (Auto) Lymph % (Auto) [place] % (Auto) Eos % (Auto) Baso % (Auto) Neut # (Auto) Lymph # (Auto) [place] # (Auto) Eos # (Auto) Baso # (Auto) Immature Gran # (Auto) PT INR APTT PTT Ratio VBG pH VBG pCO2 VBG pO2 VBG HCO3 VBG O2 Saturation VBG Base Excess Barometric Pressure Sodium Potassium Chloride Carbon Dioxide Anion Gap BUN Creatinine Est Cr Clr Drug Dosing Est GFR ( Amer) Est GFR (Non-Af Amer) BUN/Creatinine Ratio Glucose Lactate 1.3 Calcium Magnesium Total Bilirubin AST ALT Alkaline Phosphatase Troponin I Total Protein Albumin Globulin Albumin/Globulin Ratio Lipase Procalcitonin Urine Color Urine Appearance Urine pH Ur Specific [place] Urine Protein Urine Glucose (UA) Urine Ketones Urine Blood Urine Nitrite Urine Bilirubin Urine Urobilinogen Ur Leukocyte Esterase Urine WBC (Auto) Urine RBC (Auto) U Hyaline Cast (Auto) U Epithel Cells (Auto) Urine Bacteria (Auto) Granular Casts COVID-19 Eval Order SARS-CoV-2, RNA, NAAT NEGATIVE
[2020-11-19] MEDS ORDERED: INDOMETHACIN 50 MG SUPP PR ONE ×3 (19:34→19:48)
--- NOTE | 2020-11-19 20:22 | History & Physical Report ---
Date of Service November 19, 2020 Assessment & Plan (1) Sepsis: (2) Acute cholecystitis: -Admit to telemetry -Patient presenting from home with reports of epigastric abdominal pain x 5 days -In the ED, CT ABD/pelvis shows findings are consistent with acute cholecystitis and could represent early gangrenous change -Severe sepsis present with fever, tachycardia, hypotension, WBC 22K, lactic acid 2.5 -BP improved after IVF, repeat lactate 1.3 -Received IV cefepime and IV Flagyl in the ED, will continue with -Dr. Macdonald, general surgery, evaluated the patient in the ED who recommends ERCP due to elevated bilirubin 1.4. Dr. Russell taking the patient for urgent ERCP this evening. -Follow blood cultures (3) Hypoxia: -Patient hypoxic on room air at 80%, currently saturating well on 3 L of oxygen via nasal cannula -CT chest without contrast unrevealing of cause -History of pulmonary embolism anticoagulated on Coumadin, INR 1.5. Unable to do CTA chest due to SHAYNE. Hold anticoagulation for now due to procedures. Consider heparin drip. Check BLLE Dopplers. (4) SHAYNE (acute kidney injury): -Creatinine 1.7 (baseline ~ 0.9) -Likely prerenal due to sepsis -IVF, follow renal functions -Hold lisinopril (5) Left anterior fascicular block: (6) Elevated troponin: -Troponin 0.067, EKG shows a left anterior fascicular block. Appears to be new however no recent EKGs for comparison -No reports of chest pain -Troponin elevation may be due to demand ischemia in the setting of sepsis -Continue to cycle cardiac enzymes -Consider echo (7) Lymphedema, not elsewhere classified: -Managed with diuretics, hold due to SHAYNE and sepsis (8) History of pulmonary embolism: -Anticoagulation as mentioned above (9) History of paroxysmal atrial tachycardia: (10) History of paroxysmal supraventricular tachycardia: -Continue metoprolol (11) DM type 2 (diabetes mellitus, type 2): -Hgb A1c 6.8 05/2020 -Lantus/NovoLog -Glycemic pharmacy consult (12) HTN (hypertension): -Hold lisinopril due to hypotension/SHAYNE -Continue metoprolol as BP allows due to history of PAT and NSVT (13) History of breast cancer: -History of breast cancer s/p left mastectomy -CT chest showing A few small right breast nodules measure up to 13 mm. Nonemergent mammogram follow-up recommended (14) DVT prophylaxis: -SCDs for now History of Present Illness Chief Complaint: Abdominal pain Primary Care Provider: Christiano Felton MD 80-year-old female with PMH DM type II, paroxysmal atrial tachycardia, NSVT, HTN, history of pulmonary embolism anticoagulated on Coumadin, lymphedema, history of breast cancer s/p mastectomy, and other problems listed below who presents the ED for evaluation of abdominal pain. Patient reports symptoms began 5 days ago. Describes epigastric abdominal pain radiating into her back. She reports she has had a very poor appetite however no nausea or vomiting. Reports diarrhea today. Denies bright red bleeding per rectum or dark tarry stools. Reports she is felt generally weak. Did not take her temperature at home. Denies chest pain or shortness of breath. [place] lightheaded and dizzy tod ay however no syncopal event. She denies any urinary symptoms. In the ED, CT ABD/pelvis shows severe gallbladder wall thickening with extensive surrounding inflammatory change and multiple small gallstones. Findings are consistent with acute cholecystitis and could represent early gangrenous change. WBC 22K, febrile 39.2, tachycardic, borderline low BPs, lactic acid 2.5 -> 1.3. Hypoxic on room air 80%, currently saturating well on 3 L via nasal cannula. Patient received IV cefepime, IV Flagyl, IVF. General surgery was notified by ED. Allergies Allergy/AdvReac Type Severity Reaction Status Date / Time rosiglitazone Allergy Mild UNKNOWN-RELATED Verified 11/19/20 16:08 POSS TO DVT/PE PER MEDICAL RECORD acetaminophen Allergy Unknown HIVES Verified 11/19/20 16:08 latex Allergy Unknown "Tape Verified 11/19/20 16:08 causes redness" Penicillins Allergy Unknown SOB Unverified 11/19/20 16:08 ,THROAT SHUT,COULDN'T BREATHE tramadol Allergy Unknown UNKNOWN Verified 11/19/20 16:08 Home Medications Medication Instructions Recorded Confirmed Type anastrozole 1 mg tablet 1 mg PO DAILY 06/12/20 11/19/20 History clindamycin phosphate 1 % topical 1 appln TOP BID 06/12/20 11/19/20 History gel cyanocobalamin (vitamin B-12) 1,000 mcg PO DAILY 06/12/20 11/19/20 History 1,000 mcg tablet cyclobenzaprine 10 mg tablet 10 mg PO BID tab 06/12/20 11/19/20 History fluticasone propionate 50 2 sprays INTNAS DAILY 06/12/20 11/19/20 History mcg/actuation nasal spray,suspension furosemide 40 mg tablet 40 mg PO TUTHSA 06/12/20 11/19/20 History glipizide 5 mg tablet 5 mg PO BID 06/12/20 11/19/20 History insulin glargine 100 unit/mL 40 units SQ QAM 06/12/20 11/19/20 History subcutaneous solution insulin glargine 100 unit/mL 42 units SQ QPM ml 06/12/20 11/19/20 History subcutaneous solution lisinopril 10 mg tablet 10 mg PO DAILY 06/12/20 11/19/20 History metformin 1,000 mg tablet 1,000 mg PO BID 06/12/20 11/19/20 History metoprolol tartrate 100 mg tablet 100 mg PO BID 06/12/20 11/19/20 History potassium chloride 20 mEq 40 meq PO SUMOWEFR 06/12/20 11/19/20 History tablet,extended release pregabalin 200 mg capsule 200 mg PO BID 06/12/20 11/19/20 History acetaminophen [Tylenol] 325 mg PO Q4 PRN 11/19/20 11/19/20 History cholecalciferol (vitamin D3) 50 mcg PO Q2D 11/19/20 11/19/20 History cholecalciferol (vitamin D3) 25 mcg PO Q2D 11/19/20 11/19/20 History [Vitamin D3] furosemide [Lasix] 80 mg PO SUMOWEFR 11/19/20 11/19/20 History meclizine 25 mg PO TID PRN 11/19/20 11/19/20 History potassium chloride 20 meq PO TUTHSA 11/19/20 11/19/20 History turmeric root extract 500 mg PO DAILY 11/19/20 11/19/20 History warfarin 5 mg PO SUTUWETHSA 11/19/20 11/19/20 History warfarin 7.5 mg PO MOFR 11/19/20 11/19/20 History Past Med/Surg History Medical History Atrial paroxysmal tachycardia Chronic venous insufficiency Diabetes mellitus with neuropathy DM type 2 (diabetes mellitus, type 2) Esophagitis, reflux Essential (primary) hypertension Generalized OA History of paroxysmal atrial tachycardia History of paroxysmal supraventricular tachycardia History of pulmonary embolism HTN (hypertension) 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 Lymphedema, not elsewhere classified Malignant neoplasm of upper-outer quadrant of left female breast Moderate aortic stenosis Morbid (severe) obesity due to excess calories Obstructive sleep apnea (adult) (pediatric) PAD (peripheral artery disease) Vitamin D insufficiency Surgical History H/O left mastectomy Previous back surgery S/P hysterectomy S/P right rotator cuff repair Family History Other Family history non-contributory Social History Smoking Status: Never smoker Hx Alcohol Use: No Hx Substance Use: No Preferred Language: Armenian Communication Ability: Effective Visual Impairment: Limited Hearing Ability: Normal Show Card Letterer Required: No Beliefs That Will Affect Care: None marital status: Current Living Situation: Spouse current occupational status: retired Other Information That Helps Us Care for You: No Feels Safe at Home: Yes Safety Concerns: Feels Safe At This Time Assistive Devices: None Review of Systems Review of Systems: ROS per HPI, all other systems reviewed and negative Physical Exam Constitutional: WD/WN, vitals as above + obese; no acute distress Eyes: PERRL, conjunctivae normal, anicteric sclerae Respiratory: normal respiratory effort, lungs clear to auscultation Cardiovascular: Rate/Rhythm: regular rhythm and + tachycardic Vessels: normal peripheral pulses Extremities: + edema (+3 edema BLE) Gastrointestinal (Abdomen): Inspection/Auscultation: normal bowel sounds Percussion/Palpation: + abdomen tender (Globally tender however more pronounced in RUQ and epigastric area) and abdomen soft; abdomen not rigid and no hepatosplenomegaly Musculoskeletal: no cyanosis or clubbing, extremities motor strength 5/5 Skin: no rashes, warm and dry Neurologic: PERRL, EOMI, accommodation nl, no face palsy, no dysarthria Psychiatric: A+Ox3, euthymic affect Results & Data Results & Data ([facility]) Vital Signs (Past 12 Hours) Vital Signs Temp Pulse Pulse Resp BP BP Pulse Ox 11/19/20 18:30 97 H 26 H 108/60 94 11/19/20 18:00 96 H 26 H 109/54 L 96 11/19/20 17:31 95 H 24 108/62 94 11/19/20 17:00 96 H 24 99/64 L 95 11/19/20 16:30 98 H 25 H 119/63 98 11/19/20 16:20 96 H 27 H 116/61 96 11/19/20 16:01 100 H 28 H 97/58 L 96 11/19/20 15:58 37.9 C H 11/19/20 15:30 110 H 28 H 95 11/19/20 15:00 101 H 30 H 100 11/19/20 14:39 103 H 20 97 11/19/20 14:30 103 H 20 107/64 93 11/19/20 14:18 100 H 20 97 11/19/20 14:00 101 H 24 98 11/19/20 13:42 100 H 24 113/77 80 L 11/19/20 13:35 39.2 C H 103 H 24 104/52 L 80 L 11/19/20 13:32 104 H 20 97 11/19/20 13:30 103 H 24 113/77 96 11/19/20 13:29 104 H 20 104/52 L 96 11/19/20 13:25 101 H 20 98 Laboratory Results Short CBC 11/19/20 11/19/20 11/19/20 Range/Units 13:25 13:27 15:54 WBC 22.42 H (4.8-10.8) K/uL Hgb 13.5 (12.0-16.0) g/dL Hct 42.8 (37-47) % Plt Count 242 (130-400) K/uL Lactate 2.5 H* 1.3 (0.4-2.0) mmol/L BMP 11/19/20 13:25 Sodium 132 L Potassium 4.2 Chloride 95 L Carbon Dioxide 30 BUN 39 H Creatinine 1.71 H Glucose 293 H Calcium 8.7 Cardiac Enzymes 11/19/20 Range/Units 13:25 Troponin I 0.067 H* (0-0.045) ng/ml Liver Function 11/19/20 Range/Units 13:25 Total Bilirubin 1.4 H (0.2-1) mg/dl AST 12 L (15-37) U/L ALT 14 (12-78) U/L Alkaline Phosphatase 56 (45-117) U/L Albumin 2.5 L (3.4-5.0) gm/dl Urine 11/19/20 Range/Units 14:42 Urine Color Dark Yellow Urine Appearance Turbid A (Clear) Urine pH 5.0 (4.5-7.5) Ur Specific [place] 1.016 (1.000-1.030) Urine Protein 1+ H (Negative) Urine Glucose (UA) Negative (Negative) Diagnostic Findings CT CHEST/ABD/PELVIS IMPRESSION: 1. Severe gallbladder wall thickening with extensive surrounding inflammatory change and multiple small gallstones. Findings are consistent with acute cholecystitis and could represent early gangrenous change. Surgical consultation recommended. 2. No focal lung consolidations to suggest pneumonia. 3. The ascending thoracic aorta measures up to 4 cm in diameter. 4. A few small right breast nodules measure up to 13 mm. Nonemergent mammogram follow-up recommended. 5. A 3.3 hypodense splenic lesion. This is incompletely characters on this noncontrast study. Statistically this represents a benign lesion. 6. Additional findings as described above. Code Status & VTE Plan Code Status Patient is a full code as per my discussion with her. VTE Prophylaxis Plan VTE Prophylaxis will be ordered: Yes Supervising Physician Co-Signing Physician Notes I have seen and examined the patient and have discussed the case with the provider above. I agree with the assessment and plan as stated with the following exception. She underwent ERCP and was found to have ascending cholangitis 2/2 choledocholithiasis. Removal was accomplished by biliary sphincterotomy and balloon extraction. One plastic pancreatic stent was placed into the ventral pancreatic duct to decrease the risk of post-ERCP pancreatitis. One covered metal and a double pigtail plastic biliary stents were placed into the common bile duct. Prior to procedure she was examined in the ER and was ill-appearing generally. As described above she endorses abdominal pain for several days which is present on exam; specifically her abdomen is soft and nondistended but tender in the epigastric and RUQ areas with general discomfort throughout. She appeared septic and was started on IVF resuscitation and broad spectrum antibiotics. She was newly hypoxic, and although there was initially a concern of PE, especially in the setting of recent lower right leg trauma, this may be from her acute GI illness. Lower leg doppler ultrasound was ordered but not completed this evening as she underwent ERCP instead. This is pending. Cont close clinical monitoring in PCU setting post-procedure. She will likely need cholecystectomy which will possibly take place tomorrow. Would keep patient NPO. DO Robert (1) Sepsis Sepsis acute organ dysfunction status: unspecified Sepsis type: sepsis due to unspecified organism Qualified Code(s): A41.9 - Sepsis, unspecified organism
--- NOTE | 2020-11-19 20:41 | Operative Report ---
Post Operative Report Pre & Post Diagnosis Operation Date: 11/19/20 17:00 Pre-Op Diagnosis: cholangitis Post-Op Diagnosis: cholangitis I identified the patient and participated in the time-out.: Yes Procedure Operation Date: 11/19/20 17:00 Actual Procedures p Esophagogastroduodenoscopy - Keara Russell MD Surgeon Keara Russell MD Dialysis Tech None Estimated Blood Loss 0 Findings See Below (CBD stones and pus removed consistent with cholangitis, CBD stents placed) Specimens None Description of Procedure ERCP I attest to the content of the Intraoperative Record and any orders documented therein. Any exceptions are noted below.
--- NOTE | 2020-11-19 20:55 | Fluoroscopy Report ---
[place] ERCP biliary ductal CLINICAL HISTORY: ERCP. Right upper quadrant pain. Cholelithiasis. COMPARISON STUDY: Abdomen and pelvis CT 11/19/2020. FLUOROSCOPY TIME: 1 minute and 48 seconds. FINDINGS: 12 fluoroscopic spot images of the right upper quadrant were submitted. The ampulla was can nulated and a guidewire was placed into the main pancreatic duct and common bile duct. Contrast was i njected into the common bile duct. A balloon sweep was performed. Only the proximal cystic duct was i dentified. The gallbladder did not fill with contrast. This is followed by placement of common bile d uct stent. IMPRESSION: 1. Fluoroscopy provided for ERCP. 2. A common bile duct stent was placed and appears in good position. 3. Only the proximal cystic duct was opacified. The distal cystic duct and gallbladder are not opacif ied. Therefore, this raises the possibility of cystic duct obstruction/acute cholecystitis. ACT 112: Negative or not required by law. Electronically signed by: Norman Otto M.D. 11/19/2020 8:54 PM
[2020-11-19] MEDS ORDERED: PHYTONADIONE 5 MG in SODIUM CHLORIDE 0.9% 50 ML IV ONE (21:00)
--- NOTE | 2020-11-19 21:02 | GI REPORT ---
Patient Name: Gloria Felix Procedure Date: 11/19/2020 7:34 PM Date of : 1940 Admit Type: Emergency Department Age: 80 Gender: Female Attending MD: Keara Russell MD Procedure: ERCP Providers: Keara Russell MD Referring MD: Rodolfo Hammond Md, Hank Emerson Md, Andrew Adams MD Indications: Suspected ascending cholangitis, Elevated liver enzymes Medicines: General Anesthesia Complications: No immediate complications. Estimated Blood Loss: Estimated blood loss: none. Procedure: Pre-Anesthesia Assessment: - Prior to the procedure, a History and Physical was performed, and patient medications, allergies and sensitivities were reviewed. The patient's tolerance of previous anesthesia was reviewed. - The risks and benefits of the procedure and the sedation options and risks were discussed with the patient. All questions were answered and informed consent was obtained. - Patient identification and proposed procedure were verified prior to the procedure by the physician and the nurse. The procedure was verified in the procedure room. - Pre-procedure physical examination revealed no contraindications to sedation. After obtaining informed consent, the scope was passed under direct vision. Throughout the procedure, the patient's blood pressure, pulse, and oxygen saturations were monitored continuously. The Scope was introduced through the mouth, and advanced to the duodenum and used to inject contrast into the bile duct. The ERCP was accomplished without difficulty. The patient tolerated the procedure well. Findings: The rock wool insulator film was normal. The esophagus was successfully intubated under direct vision. The scope was advanced to a normal major papilla in the descending duodenum without detailed examination of the pharynx, larynx and associated structures, and upper GI tract. The upper GI tract was grossly normal. Scattered inflammation characterized by congestion (edema), erythema and shallow ulcerations was found in the duodenal bulb and in the second portion of the duodenum. A large-mouthed diverticulum was found in the area of the papilla and in the third portion of the duodenum. The major papilla was located entirely within a diverticulum. Pus was emerging from the major papilla. A 0.035 inch straight standard wire was passed inadvertantly into the ventral pancreatic duct and kept in place. A 0.035 inch straight standard wire was passed into the biliary tree. The Fusion OMNI sphincterotome was passed over the guidewire and the bile duct was then deeply cannulated. Contrast was injected. Opacification of the entire biliary tree except for the gallbladder was successful. The maximum diameter of the ducts was 8 mm. Biliary sphincterotomy was made with a monofilament traction (standard) sphincterotome using ERBE electrocautery. There was self limited oozing from the sphincterotomy which did not require treatment. The biliary tree was swept with an 11.5 mm balloon starting at the bifurcation. Pus was swept from the duct. Sludge was swept from the duct. Many black stones were removed. No stones remained. One 5 Fr by 9 cm plastic pancreatic stent with a single external pigtail and no internal flaps was placed into the ventral pancreatic duct. Clear fluid flowed through the stent. The stent was in good position. One 10 mm by 6 cm covered metal biliary stent was placed into the common bile duct. Bile flowed through the stent. The stent was in good position. One 7 Fr by 7 cm plastic biliary stent with a single external pigtail and a single internal pigtail was placed into the common bile duct inside the metal stent. Bile flowed through the stent. The stent was in good position. Indomethacin 100 mg was given via suppository to decrease the risk of post-ERCP pancreatitis (PEP). Impression: - Choledocholithiasis was found. Complete removal was accomplished by biliary sphincterotomy and balloon extraction. - Ascending cholangitis. - One plastic pancreatic stent was placed into the ventral pancreatic duct to decrease risk of post-ERCP pancreatitis. - One covered metal and a double pigtail plastic biliary stents were placed into the common bile duct. Recommendation: - [facility] for [facility] care. - Lap fr[place] tomorrow. - Avoid aspirin and nonsteroidal anti-inflammatory medicines for 5 days. - Repeat ERCP in 6 weeks to remove stent. Keara Russell MD 11/19/2020 9:01:27 PM This report has been signed electronically. Note Initiated On: 11/19/2020 7:34 PM Number of Addenda: 0 I attest to the content of the Intraoperative Record and orders documented therein, exceptions below {[id number]}
--- NOTE | 2020-11-19 21:41 | Anesthesiology Progress Note ---
Date of Service November 19, 2020 Anesthesia Post Procedure Vital Signs Vital Signs: Temp Pulse Pulse Resp BP BP Pulse Ox 11/19/20 21:30 93 H 20 120/67 95 11/19/20 21:20 36.9 C 95 H 20 122/69 96 11/19/20 21:10 95 H 19 120/62 97 11/19/20 21:00 98 H 27 H 126/66 96 11/19/20 20:52 37.1 C 102 H 28 H 130/67 93 11/19/20 18:30 97 H 26 H 108/60 94 11/19/20 18:00 96 H 26 H 109/54 L 96 11/19/20 17:31 95 H 24 108/62 94 11/19/20 17:00 96 H 24 99/64 L 95 11/19/20 16:30 98 H 25 H 119/63 98 11/19/20 16:20 96 H 27 H 116/61 96 11/19/20 16:01 100 H 28 H 97/58 L 96 11/19/20 15:58 37.9 C H 11/19/20 15:30 110 H 28 H 95 11/19/20 15:00 101 H 30 H 100 11/19/20 14:39 103 H 20 97 11/19/20 14:30 103 H 20 107/64 93 11/19/20 14:18 100 H 20 97 11/19/20 14:00 101 H 24 98 11/19/20 13:42 100 H 24 113/77 80 L 11/19/20 13:35 39.2 C H 103 H 24 104/52 L 80 L 11/19/20 13:32 104 H 20 97 11/19/20 13:30 103 H 24 113/77 96 11/19/20 13:29 104 H 20 104/52 L 96 11/19/20 13:25 101 H 20 98 Transfer of Care Handoff Completed per policy Notes Mental Status: alert / awake / arousable Patient Amnestic to Procedure: Yes Nausea / Vomiting: adequately controlled Pain: adequately controlled Airway Patency, RR, SpO2: stable & adequate BP & HR: stable & adequate Hydration State: stable & adequate Anesthetic Complications: no major complications apparent
[2020-11-19] MEDS ORDERED: GLUCOSE 40% GEL 15 GM TUBE PO PRN (22:08)
[2020-11-19] MEDS ORDERED: INSULIN GLARGINE SOLOSTAR 100 UNITS/ML 3 ML PEN SC ONE (22:08)
[2020-11-19] MEDS ORDERED: GLUCAGON FOR INJ 1 MG VIAL SQ PRN (22:08)
[2020-11-19] MEDS ORDERED: CARBOHYDRATES FOR HYPOGLYCEMIA PO PRN (22:08)
[2020-11-19] MEDS ORDERED: DEXTROSE 50% 50 ML SYRINGE IV PRN (22:08)
[2020-11-19] MEDS ORDERED: GLUCOSE 10 TABS/TUBE PO PRN (22:08)
[2020-11-19] MEDS ORDERED: CEFEPIME CONSULT ACTIVE PRN (22:08)
[2020-11-19] MEDS ORDERED: ACETAMINOPHEN 325 MG TAB PO PRN (22:08)
[2020-11-19] MEDS ORDERED: PHARMACY GLYCEMIC MGMT CONSULT PRN (22:18)
[2020-11-19] MEDS: METOPROLOL TARTRATE 100 MG TAB PO SCH (22:44)
[2020-11-19] MEDS: PREGABALIN 100 MG CAP PO SCH (22:44)
[2020-11-19] MEDS: SODIUM CHLORIDE 0.9% 1000ML 1,000 ML IV SCH (22:44)
[2020-11-19] MEDS: INSULIN ASPART 100 UNITS/ML 3 ML PEN SC SCH (23:16)
[2020-11-19] MEDS: ONDANSETRON INJ 2 MG/ML 2 ML VIAL IV PRN (23:21)
[2020-11-19] MEDS: metroNIDAZOLE 500 MG/100 ML BAG IV SCH (23:26)
[2020-11-20] MEDS: INSULIN ASPART 100 UNITS/ML 3 ML PEN SC SCH ×4 (05:51→20:39)
[2020-11-20 06:16] LABS: Hematocrit (blood only) 36.6 % (37-47); Hemoglobin 11.6 g/dL (12.0-16.0); Mean Corpuscular Hemoglobin 28.7 pg (25-34); Mean Corpuscular Hgb Conc 31.7 g/dL (32-36); Mean Corpuscular Volume 90.6 fL (80-100); Mean Platelet Volume 11.6 fL (7.4-10.4); Platelet Count 209 K/uL (130-400); RDW Coefficient of Variation 15.4 % (11.5-14.5); RDW Standard Deviation 51.7 fL (36.4-46.3); Red Blood Count 4.04 M/uL (4.2-5.4); White Blood Count 17.48 K/uL (4.8-10.8)
[2020-11-20 06:24] LABS: INR 1.4 (0.9-1.1); Prothrombin Time 14.6 Seconds (9.0-12.0)
--- NOTE | 2020-11-20 06:35 | Ultrasound Report ---
BILATERAL LOWER EXTREMITY VENOUS DOPPLER CLINICAL HISTORY: swelling COMPARISON STUDY: Right lower extremity venous Doppler ultrasound September 25, 2009. TECHNIQUE: Sonography of the deep venous system of the bilateral lower extremities was performed. Co mpression and augmentation were evaluated. FINDINGS: The bilateral common femoral, superficial femoral and popliteal veins were compressible. A ugmentation was normal. Flow was shown within the deep calf vessels. IMPRESSION: No evidence of deep venous thrombus within the bilateral lower extremities. ACT 112: Negative or not required by law. Electronically signed by: Stanislav Gonzales M.D. 11/20/2020 6:34 AM
[2020-11-20 06:44] LABS: BUN Creatinine Ratio 35.1 (10-20); Calcium 7.7 mg/dl (8.5-10.1); Creatinine Clr Calc Pharmacy 49.3 ml/min; Est GFR (African American) 48.7; Potassium 4.1 mmol/L (3.5-5.1)
[2020-11-20 06:49] LABS: Albumin Globulin Ratio 0.4 (0.9-2); Bilirubin,Total 0.9 mg/dl (0.2-1); Globulin 4.6 gm/dl (2.5-4.0); Total Protein 6.6 gm/dl (6.4-8.2); Troponin I 0.033 ng/ml (0-0.045)
[2020-11-20 06:53] LABS: Estimated Average Glucose 166 mg/dl; Hemoglobin A1C 7.4 % (4.5-5.6)
--- NOTE | 2020-11-20 07:12 | Anesthesiology Consultation ---
Date of Service November 20, 2020 Assessment & Plan (1) Encounter for pre-operative examination: Chart Review Chart Review: Acceptable Risk for Surgery and Patient NOT seen in Pre Admission Testing Consults Requested none Additional Notes Tolerated ERCP/uncomplicated intubation yesterday without apparent complicat ions. History Surgery Operation Date: 11/19/20 17:00 Proposed Procedures p Esophagogastroduodenoscopy - Keara Russell MD Operation Date: 11/20/20 10:25 Proposed Procedures p Laparoscopic Cholecystectomy - Elva Macdonald MD Height/Weight Height: 5 ft 4 in Weight: 124.7 kg Allergies Allergy/AdvReac Type Severity Reaction Status Date / Time rosiglitazone Allergy Mild UNKNOWN-RELATED Verified 11/19/20 16:08 POSS TO DVT/PE PER MEDICAL RECORD acetaminophen Allergy Unknown HIVES Verified 11/19/20 16:08 latex Allergy Unknown "Tape Verified 11/19/20 16:08 causes redness" Penicillins Allergy Unknown SOB Unverified 11/19/20 16:08 ,THROAT SHUT,COULDN'T BREATHE tramadol Allergy Unknown UNKNOWN Verified 11/19/20 16:08 Medications Home Medications Medication Instructions Recorded Confirmed Last Taken anastrozole 1 mg tablet 1 mg PO DAILY 06/12/20 11/19/20 Unknown clindamycin phosphate 1 % topical 1 appln TOP BID 06/12/20 11/19/20 Unknown gel cyanocobalamin (vitamin B-12) 1,000 mcg PO DAILY 06/12/20 11/19/20 Unknown 1,000 mcg tablet cyclobenzaprine 10 mg tablet 10 mg PO BID tab 06/12/20 11/19/20 Unknown fluticasone propionate 50 2 sprays INTNAS DAILY 06/12/20 11/19/20 Unknown mcg/actuation nasal spray,suspension furosemide 40 mg tablet 40 mg PO TUTHSA 06/12/20 11/19/20 Unknown glipizide 5 mg tablet 5 mg PO BID 06/12/20 11/19/20 Unknown insulin glargine 100 unit/mL 40 units SQ QAM 06/12/20 11/19/20 Unknown subcutaneous solution insulin glargine 100 unit/mL 42 units SQ QPM ml 06/12/20 11/19/20 Unknown subcutaneous solution lisinopril 10 mg tablet 10 mg PO DAILY 06/12/20 11/19/20 Unknown metformin 1,000 mg tablet 1,000 mg PO BID 06/12/20 11/19/20 Unknown metoprolol tartrate 100 mg tablet 100 mg PO BID 06/12/20 11/19/20 Unknown potassium chloride 20 mEq 40 meq PO SUMOWE06/12/20 11/19/20 Unknown tablet,extended release pregabalin 200 mg capsule 200 mg PO BID 06/12/20 11/19/20 Unknown acetaminophen [Tylenol] 325 mg PO Q4 PRN 11/19/20 11/19/20 Unknown cholecalciferol (vitamin D3) 50 mcg PO Q2D 11/19/20 11/19/20 Unknown cholecalciferol (vitamin D3) 25 mcg PO Q2D 11/19/20 11/19/20 Unknown [Vitamin D3] furosemide [Lasix] 80 mg PO SUMOWE11/19/20 11/19/20 Unknown meclizine 25 mg PO TID PRN 11/19/20 11/19/20 Unknown potassium chloride 20 meq PO TUTHSA 11/19/20 11/19/20 Unknown turmeric root extract 500 mg PO DAILY 11/19/20 11/19/20 Unknown warfarin 5 mg PO SUTUWETHSA 11/19/20 11/19/20 Unknown warfarin 7.5 mg PO MOFR 11/19/20 11/19/20 Unknown Active Medications Generic Name Dose Route Start Last Admin Trade Name Freq PRN Reason Stop Dose Admin Metronidazole 500 mg in 100 mls @ 100 mls/hr 11/20/20 00:00 11/20/20 00:47 Flagyl IV 11/30/20 00:00 Infused Q8H TAYO Infusion Sodium Chloride 1,000 mls @ 100 mls/hr 11/19/20 22:08 11/19/20 22:44 Nss 1000ml IV 12/19/20 22:07 100 mls/hr .Q10H TAYO Administration Insulin Aspart 0 units 11/19/20 22:08 11/20/20 05:51 Insulin Aspart 100 Units/Ml 3 Ml Pen SC 12/19/20 22:07 6 units Q6 TAYO Administration Metoprolol Tartrate 100 mg 11/19/20 22:08 11/19/20 22:44 Metoprolol Tartrate 100 Mg Tab PO 12/19/20 22:07 Not Given BID TAYO Ondansetron HCl 4 mg 11/19/20 22:08 11/19/20 23:21 Ondansetron Inj 2 Mg/Ml 2 Ml Vial IV 12/19/20 22:07 4 mg Q6H PRN Administration Nausea Pregabalin 200 mg 11/19/20 22:08 11/19/20 22:44 Pregabalin 100 Mg Cap PO 12/19/20 22:07 Not Given BID TAYO NPO Date Last Intake of Fluids: 11/18/20 Date Last Intake of Solids: 11/18/20 Past Medical History Medical History Atrial paroxysmal tachycardia Chronic venous insufficiency Diabetes mellitus with neuropathy DM type 2 (diabetes mellitus, type 2) Esophagitis, reflux Essential (primary) hypertension Generalized OA History of paroxysmal atrial tachycardia History of paroxysmal supraventricular tachycardia History of pulmonary embolism HTN (hypertension) 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 Lymphedema, not elsewhere classified Malignant neoplasm of upper-outer quadrant of left female breast Moderate aortic stenosis Morbid (severe) obesity due to excess calories Obstructive sleep apnea (adult) (pediatric) PAD (peripheral artery disease) Vitamin D insufficiency Past Family History Family History Other Family history non-contributory Past Surgical History Surgical History H/O left mastectomy Previous back surgery S/P hysterectomy S/P right rotator cuff repair Social History Smoking Status: Never smoker Hx Alcohol Use: No Hx Substance Use: No Physical Exam Vital Signs Last Vital Signs Temp 36.5 C 11/20/20 02:33 Pulse 73 11/20/20 02:33 Resp 19 11/20/20 02:33 BP 114/69 11/20/20 02:33 Pulse Ox 95 11/20/20 02:33 Testing Laboratory Results 11/20/20 05:41 11/20/20 05:41 PT 14.6 Seconds (9.0-12.0) H 11/20/20 05:41 INR 1.4 (0.9-1.1) H 11/20/20 05:41 APTT 37.5 Seconds (21.0-31.0) H 11/19/20 13:25 Hemoglobin A1c 7.4 % (4.5-5.6) H 11/20/20 05:41 Urine Color Dark Yellow 11/19/20 14:42 Urine Appearance Turbid (Clear) A 11/19/20 14:42 Urine pH 5.0 (4.5-7.5) 11/19/20 14:42 Ur Specific Collins 1.016 (1.000-1.030) 11/19/20 14:42 Urine Protein 1+ (Negative) H 11/19/20 14:42 Urine Glucose (UA) Negative (Negative) 11/19/20 14:42 Urine Ketones Negative (Negative) 11/19/20 14:42 Urine Nitrite Negative (Negative) 11/19/20 14:42 Ur Leukocyte Esterase 3+ (Negative) H 11/19/20 14:42 Urine WBC (Auto) >30 /hpf (0-5) H 11/19/20 14:42 Urine RBC (Auto) 0-4 /hpf (0-4) 11/19/20 14:42 U Hyaline Cast (Auto) 5-10 /lpf (0-5) H 11/19/20 14:42 U Epithel Cells (Auto) >30 /lpf (0-5) H 11/19/20 14:42 Urine Bacteria (Auto) 3+ (Negative) H 11/19/20 14:42 11/19/20 13:25 Aerobic Blood Culture - Preliminary Blood Gram negative bacilli Anaerobic Blood Culture - Preliminary Gram negative bacilli 11/20/20 11/19/20 11/19/20 05:48 23:00 20:55 POC Glucose 254 H 265 H 251 H Electrocardiogram Date: 11/19/20 Findings: + NSR @ (100) PVCs, LAFB, LVH with repolarization abnormality, compared to prior (11/19/2020) PVCs now present, minimal criteria for septal infarct are no longer present
[2020-11-20] MEDS ORDERED: fentaNYL citrate 100 MCG/2 ML VIAL ONE (07:25)
[2020-11-20] MEDS ORDERED: ROCURONIUM BROMIDE 10 MG/ML 5 ML VIAL IV ONE (07:25)
[2020-11-20] MEDS ORDERED: ONDANSETRON INJ 2 MG/ML 2 ML VIAL ONE (07:25)
[2020-11-20] MEDS ORDERED: GLYCOPYRROLATE 0.2 MG/ML VIAL ONE (07:25)
[2020-11-20] MEDS ORDERED: PROPOFOL IV EMULSION 10 MG/ML 20 ML VIAL IV ONE (07:25)
[2020-11-20] MEDS ORDERED: LIDOCAINE HCL 2% 2 ML VIAL/AMP(20MG/ML) INFIL ONE (07:25)
[2020-11-20] MEDS ORDERED: NEOSTIGMINE METHYLSULFATE 5 MG/5 ML SYR ONE (07:25)
[2020-11-20] MEDS ORDERED: MIDAZOLAM HCL 1 MG/ML 2ML VIAL ONE (07:26)
[2020-11-20] MEDS ORDERED: BUPIVACAINE 0.5 % 5 MG/1 ML MPF 30ML VIAL ONE (07:31)
[2020-11-20] MEDS ORDERED: BACITRACIN OINT 15 GM TUBE ONE (07:31)
[2020-11-20] MEDS ORDERED: LIDOCAINE HCL 1% 20 ML VIAL ONE (07:31)
[2020-11-20] MEDS ORDERED: CIPROFLOXACIN 400MG / 200ML D5W IV ONE (07:36)
--- NOTE | 2020-11-20 07:38 | Anesthesiology Consultation ---
Date of Service November 20, 2020 Assessment & Plan (1) Encounter for pre-operative examination: Chart Review Chart Review: Acceptable Risk for Surgery and Patient NOT seen in Pre Admission Testing covid neg 11/19/2020. Consults Requested none History Surgery Operation Date: 11/19/20 17:00 Proposed Procedures p Esophagogastroduodenoscopy - Keara Russell MD Operation Date: 11/20/20 10:25 Proposed Procedures p Laparoscopic Cholecystectomy - Elva Macdonald MD Height/Weight Height: 5 ft 4 in Weight: 124.7 kg Allergies Allergy/AdvReac Type Severity Reaction Status Date / Time rosiglitazone Allergy Mild UNKNOWN-RELATED Verified 11/19/20 16:08 POSS TO DVT/PE PER MEDICAL RECORD acetaminophen Allergy Unknown HIVES Verified 11/19/20 16:08 latex Allergy Unknown "Tape Verified 11/19/20 16:08 causes redness" Penicillins Allergy Unknown SOB Unverified 11/19/20 16:08 ,THROAT SHUT,COULDN'T BREATHE tramadol Allergy Unknown UNKNOWN Verified 11/19/20 16:08 Medications Home Medications Medication Instructions Recorded Confirmed Last Taken anastrozole 1 mg tablet 1 mg PO DAILY 06/12/20 11/19/20 Unknown clindamycin phosphate 1 % topical 1 appln TOP BID 06/12/20 11/19/20 Unknown gel cyanocobalamin (vitamin B-12) 1,000 mcg PO DAILY 06/12/20 11/19/20 Unknown 1,000 mcg tablet cyclobenzaprine 10 mg tablet 10 mg PO BID tab 06/12/20 11/19/20 Unknown fluticasone propionate 50 2 sprays INTNAS DAILY 06/12/20 11/19/20 Unknown mcg/actuation nasal spray,suspension furosemide 40 mg tablet 40 mg PO TUTHSA 06/12/20 11/19/20 Unknown glipizide 5 mg tablet 5 mg PO BID 06/12/20 11/19/20 Unknown insulin glargine 100 unit/mL 40 units SQ QAM 06/12/20 11/19/20 Unknown subcutaneous solution insulin glargine 100 unit/mL 42 units SQ QPM ml 06/12/20 11/19/20 Unknown subcutaneous solution lisinopril 10 mg tablet 10 mg PO DAILY 06/12/20 11/19/20 Unknown metformin 1,000 mg tablet 1,000 mg PO BID 06/12/20 11/19/20 Unknown metoprolol tartrate 100 mg tablet 100 mg PO BID 06/12/20 11/19/20 Unknown potassium chloride 20 mEq 40 meq PO SUMOWE06/12/20 11/19/20 Unknown tablet,extended release pregabalin 200 mg capsule 200 mg PO BID 06/12/20 11/19/20 Unknown acetaminophen [Tylenol] 325 mg PO Q4 PRN 11/19/20 11/19/20 Unknown cholecalciferol (vitamin D3) 50 mcg PO Q2D 11/19/20 11/19/20 Unknown cholecalciferol (vitamin D3) 25 mcg PO Q2D 11/19/20 11/19/20 Unknown [Vitamin D3] furosemide [Lasix] 80 mg PO WE11/19/20 11/19/20 Unknown meclizine 25 mg PO TID PRN 11/19/20 11/19/20 Unknown potassium chloride 20 meq PO TUTHSA 11/19/20 11/19/20 Unknown turmeric root extract 500 mg PO DAILY 11/19/20 11/19/20 Unknown warfarin 5 mg PO SUTUWETHSA 11/19/20 11/19/20 Unknown warfarin 7.5 mg PO MOFR 11/19/20 11/19/20 Unknown Active Medications Generic Name Dose Route Start Last Admin Trade Name Freq PRN Reason Stop Dose Admin Metronidazole 500 mg in 100 mls @ 100 mls/hr 11/20/20 00:00 11/20/20 00:47 Flagyl IV 11/30/20 00:00 Infused Q8H TAYO Infusion Sodium Chloride 1,000 mls @ 100 mls/hr 11/19/20 22:08 11/19/20 22:44 Nss 1000ml IV 12/19/20 22:07 100 mls/hr .Q10H TAYO Administration Insulin Aspart 0 units 11/19/20 22:08 11/20/20 05:51 Insulin Aspart 100 Units/Ml 3 Ml Pen SC 12/19/20 22:07 6 units Q6 TAYO Administration Metoprolol Tartrate 100 mg 11/19/20 22:08 11/19/20 22:44 Metoprolol Tartrate 100 Mg Tab PO 12/19/20 22:07 Not Given BID TAYO Ondansetron HCl 4 mg 11/19/20 22:08 11/19/20 23:21 Ondansetron Inj 2 Mg/Ml 2 Ml Vial IV 12/19/20 22:07 4 mg Q6H PRN Administration Nausea Pregabalin 200 mg 11/19/20 22:08 11/19/20 22:44 Pregabalin 100 Mg Cap PO 12/19/20 22:07 Not Given BID TAYO Past Medical History Medical History Atrial paroxysmal tachycardia Chronic venous insufficiency Diabetes mellitus with neuropathy DM type 2 (diabetes mellitus, type 2) Esophagitis, reflux Essential (primary) hypertension Generalized OA History of paroxysmal atrial tachycardia History of paroxysmal supraventricular tachycardia History of pulmonary embolism HTN (hypertension) 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 Exercise / Class Metabolic Activity III < 4 Walking/Shop/Light housework Past Family History Family History Other Family history non-contributory Past Surgical History Surgical History H/O left mastectomy Previous back surgery S/P hysterectomy S/P right rotator cuff repair Social History Smoking Status: Never smoker Hx Alcohol Use: No Hx Substance Use: No Physical Exam Vital Signs Last Vital Signs Temp 36.5 C 11/20/20 02:33 Pulse 73 11/20/20 02:33 Resp 19 11/20/20 02:33 BP 114/69 11/20/20 02:33 Pulse Ox 95 11/20/20 02:33 Testing Laboratory Results 11/20/20 05:41 11/20/20 05:41 PT 14.6 Seconds (9.0-12.0) H 11/20/20 05:41 INR 1.4 (0.9-1.1) H 11/20/20 05:41 APTT 37.5 Seconds (21.0-31.0) H 11/19/20 13:25 Hemoglobin A1c 7.4 % (4.5-5.6) H 11/20/20 05:41 Urine Color Dark Yellow 11/19/20 14:42 Urine Appearance Turbid (Clear) A 11/19/20 14:42 Urine pH 5.0 (4.5-7.5) 11/19/20 14:42 Ur Specific [place] 1.016 (1.000-1.030) 11/19/20 14:42 Urine Protein 1+ (Negative) H 11/19/20 14:42 Urine Glucose (UA) Negative (Negative) 11/19/20 14:42 Urine Ketones Negative (Negative) 11/19/20 14:42 Urine Nitrite Negative (Negative) 11/19/20 14:42 Ur Leukocyte Esterase 3+ (Negative) H 11/19/20 14:42 Urine WBC (Auto) >30 /hpf (0-5) H 11/19/20 14:42 Urine RBC (Auto) 0-4 /hpf (0-4) 11/19/20 14:42 U Hyaline Cast (Auto) 5-10 /lpf (0-5) H 11/19/20 14:42 U Epithel Cells (Auto) >30 /lpf (0-5) H 11/19/20 14:42 Urine Bacteria (Auto) 3+ (Negative) H 11/19/20 14:42 11/19/20 13:25 Aerobic Blood Culture - Preliminary Blood Gram negative bacilli Anaerobic Blood Culture - Preliminary Gram negative bacilli 11/20/20 11/19/20 11/19/20 05:48 23:00 20:55 POC Glucose 254 H 265 H 251 H Electrocardiogram Date: 11/19/20 Findings: + NSR @ (100) PVCs, LAFB, LVH with repolarization abnormality, compared to prior (11/19/2020) PVCs now present, minimal criteria for septal infarct are no longer present
--- NOTE | 2020-11-20 07:38 | History & Physical Bridge Note ---
Date of Service November 20, 2020 History & Physical Bridge Note I have examined the patient, reviewed the History & Physical and in the interval since the performance of the History & Physical I have noted the following changes of clinical significance: no changes noted Supervising Physician Co-Signing Physician Notes I have seen and examined the patient and have discussed the case with the provider above. I agree with the assessment and plan as stated with the following exception. She underwent ERCP and was found to have ascending cholangitis 2/2 choledocholithiasis. Removal was accomplished by biliary sphincterotomy and balloon extraction. One plastic pancreatic stent was placed into the ventral pancreatic duct to decrease the risk of post-ERCP pancreatitis. One covered metal and a double pigtail plastic biliary stents were placed into the common bile duct. Prior to procedure she was examined in the ER and was ill-appearing generally.
[2020-11-20] MEDS ORDERED: ONDANSETRON INJ 2 MG/ML 2 ML VIAL IV PRN (07:43)
[2020-11-20] MEDS ORDERED: ATROPINE SULFATE 0.1 MG/ML 10ML SYR IV PRN (07:43)
[2020-11-20] MEDS ORDERED: ePHEDrine sulfate 50 MG/ML AMP IV PRN (07:43)
[2020-11-20] MEDS ORDERED: CIPROFLOXACIN / D5W 400 MG/200 ML BAG IV SCH (07:45)
[2020-11-20] MEDS ORDERED: INSULIN GLARGINE SOLOSTAR 100 UNITS/ML 3 ML PEN SC ONE (08:00)
--- NOTE | 2020-11-20 08:25 | Hospitalist Progress Note ---
Date of Service November 20, 2020 Assessment & Plan (1) Sepsis: (2) Acute cholecystitis: Ascending cholangitis, choledocholithiasis -Patient presenting from home with reports of epigastric abdominal pain x 5 days -In the ED, CT ABD/pelvis shows findings are consistent with acute cholecystitis and could represent early gangrenous change -Severe sepsis present with fever, tachycardia, hypotension, WBC 22K, lactic acid 2.5 -BP improved after IVF, repeat lactate 1.3 -Received IV cefepime and IV Flagyl in the ED, will continue with -Dr. Macdonald, general surgery, evaluated the patient in the ED who recommends ERCP due to elevated bilirubin 1.4. Dr. Russell taking the patient for urgent ERCP in the evening. Pt is now s/p ERCP (+ choledocholithiasis, stents placed) and s/p laparoscopic cholecystectomy (11/21/2020) -Follow blood cultures (3) Hypoxia: -Patient hypoxic on room air at 80%, currently saturating well on 3 L of oxygen via nasal cannula -CT chest without contrast unrevealing of cause -History of pulmonary embolism anticoagulated on Coumadin, INR 1.5. Unable to do CTA chest due to SHAYNE. Hold anticoagulation for now due to procedures. Consider heparin drip. Checked BLLE Dopplers - negative (4) SHAYNE (acute kidney injury): -Creatinine 1.7 (baseline ~ 0.9) -Likely prerenal due to sepsis -IVF, follow renal functions -Hold lisinopril (5) Left anterior fascicular block: (6) Elevated troponin: -Troponin 0.067, EKG shows a left anterior fascicular block. Appears to be new however no recent EKGs for comparison -No reports of chest pain -Troponin elevation may be due to demand ischemia in the setting of sepsis -Continue to cycle cardiac enzymes -Consider echo (7) Lymphedema, not elsewhere classified: -Managed with diuretics, hold due to SHAYNE and sepsis (8) History of pulmonary embolism: -Anticoagulation as mentioned above (9) History of paroxysmal atrial tachycardia: (10) History of paroxysmal supraventricular tachycardia: -Continue metoprolol (11) DM type 2 (diabetes mellitus, type 2): -Hgb A1c 6.8 05/2020 -Lantus/NovoLog -Glycemic pharmacy consult (12) HTN (hypertension): -Hold lisinopril due to hypotension/SHAYNE -Continue metoprolol as BP allows due to history of PAT and NSVT (13) History of breast cancer: -History of breast cancer s/p left mastectomy -CT chest showing A few small right breast nodules measure up to 13 mm. Nonemergent mammogram follow-up recommended (14) DVT prophylaxis: -SCDs for now Admission and Anticipated Discharge Date Admission Date: November 19, 2020 Subjective Pt seen in follow up of acute ascending cholengitis and acute cholecystitis. Currently s/p lap. choly, reports having nausea after anesthesia. No chest pain. Remains hypoxic, on suppl. O2. Report chronic shortness of breath. Review of Systems Review of Systems: All systems reviewed & are unremarkable except as noted in HPI & below Constitutional: no fever and no chills Respiratory: + dyspnea; no cough Cardiovascular: no chest pain and no palpitations Gastrointestinal: + abdominal pain (s/p surgery) Physical Exam Physical Exam: Constitutional: WD/WN, vitals as above + obese; no acute distress Eyes: PERRL, EOMI, conjunctivae normal, anicteric sclerae Respiratory: normal respiratory effort, lungs clear to auscultation, on 3L s uppl. O2 Cardiovascular: Rate/Rhythm: regular rhythm and + mildly tachycardic Vessels: normal peripheral pulses Extremities: + edema (+3 edema BLE) Gastrointestinal (Abdomen): Inspection/Auscultation: normal bowel sounds Percussion/Palpation: + abdomen tender (RUQ, s/p surgery) and abdomen soft; abdomen not rigid Musculoskeletal: no cyanosis or clubbing, extremities motor strength 5/5 Skin: no rashes, warm and dry Neurologic: PERRL, EOMI, no face palsy, no dysarthria, moves extremities Psychiatric: A+Ox3, euthymic affect Results & Data Results & Data ([facility]) Vital Signs (Past 12 Hours) Vital Signs Temp Pulse Resp BP Pulse Ox 11/20/20 07:58 37.6 C H 73 20 136/74 98 11/20/20 02:33 36.5 C 73 19 114/69 95 11/19/20 23:30 84 18 99/64 L 94 11/19/20 23:00 89 18 120/59 L 95 11/19/20 22:30 36.6 C 87 18 99/64 L 93 11/19/20 22:05 93 H 20 100/61 93 11/19/20 21:55 37.5 C 88 20 126/68 92 11/19/20 21:30 93 H 20 120/67 95 11/19/20 21:20 36.9 C 95 H 20 122/69 96 11/19/20 21:10 95 H 19 120/62 97 11/19/20 21:00 98 H 27 H 126/66 96 11/19/20 20:52 37.1 C 102 H 28 H 130/67 93 Laboratory Results 11/20/20 11/20/20 11/20/20 Range/Units 07:51 05:48 05:41 WBC (4.8-10.8) K/uL RBC (4.2-5.4) M/uL Hgb (12.0-16.0) g/dL Hct (37-47) % MCV (80-100) fL MCH (25-34) pg MCHC (32-36) g/dL RDW Std Deviation (36.4-46.3) fL RDW Coeff of [place] (11.5-14.5) % Plt Count (130-400) K/uL MPV (7.4-10.4) fL Immature Gran % (Auto) % Neut % (Auto) % Lymph % (Auto) % [place] % (Auto) % Eos % (Auto) % Baso % (Auto) % Neut # (Auto) (1.4-6.5) K/uL Lymph # (Auto) (1.2-3.4) K/uL [place] # (Auto) (0.11-0.59) K/uL Eos # (Auto) (0-0.5) K/uL Baso # (Auto) (0-0.2) K/uL Immature Gran # (Auto) (0.00-0.02) K/uL PT (9.0-12.0) Seconds INR (0.9-1.1) APTT (21.0-31.0) Seconds PTT Ratio VBG pH (7.36-7.41) VBG pCO2 (38-50) mmHg VBG pO2 mmHg VBG HCO3 mmol/L VBG O2 Saturation % VBG Base Excess mEq/L Barometric Pressure mm/Hg Sodium (136-145) mmol/L Potassium (3.5-5.1) mmol/L Chloride (98-107) mmol/L Carbon Dioxide (21-32) mmol/L Anion Gap (3-11) BUN (7-18) mg/dl Creatinine (0.6-1.2) mg/dl Est Cr Clr Drug Dosing ml/min Est GFR ( Amer) Est GFR (Non-Af Amer) BUN/Creatinine Ratio (10-20) Glucose (70-99) mg/dl POC Glucose 222 H 254 H (70-99) mg/dl Estimat Average Glucose 166 mg/dl Hemoglobin A1c 7.4 H (4.5-5.6) % Lactate (0.4-2.0) mmol/L Calcium (8.5-10.1) mg/dl Magnesium (1.8-2.4) mg/dl Total Bilirubin (0.2-1) mg/dl AST (15-37) U/L ALT (12-78) U/L Alkaline Phosphatase (45-117) U/L Troponin I (0-0.045) ng/ml Total Protein (6.4-8.2) gm/dl Albumin (3.4-5.0) gm/dl Globulin (2.5-4.0) gm/dl Albumin/Globulin Ratio (0.9-2) Lipase (73-393) U/L Procalcitonin (0-0.5) ng/ml Urine Color Urine Appearance (Clear) Urine pH (4.5-7.5) Ur Specific [place] (1.000-1.030) Urine Protein (Negative) Urine Glucose (UA) (Negative) Urine Ketones (Negative) Urine Blood (Negative) Urine Nitrite (Negative) Urine Bilirubin (Negative) Urine Urobilinogen (Negative) Ur Leukocyte Esterase (Negative) Urine WBC (Auto) (0-5) /hpf Urine RBC (Auto) (0-4) /hpf U Hyaline Cast (Auto) (0-5) /lpf U Epithel Cells (Auto) (0-5) /lpf Urine Bacteria (Auto) (Negative) Granular Casts (0) /lpf COVID-19 Eval Order SARS-CoV-2, RNA, NAAT (NEGATIVE) 11/20/20 11/20/20 11/20/20 Range/Units 05:41 05:41 05:41 WBC 17.48 H (4.8-10.8) K/uL RBC 4.04 L (4.2-5.4) M/uL Hgb 11.6 L (12.0-16.0) g/dL Hct 36.6 L (37-47) % MCV 90.6 (80-100) fL MCH 28.7 (25-34) pg MCHC 31.7 L (32-36) g/dL RDW Std Deviation 51.7 H (36.4-46.3) fL RDW Coeff of [place] 15.4 H (11.5-14.5) % Plt Count 209 (130-400) K/uL MPV 11.6 H (7.4-10.4) fL Immature Gran % (Auto) % Neut % (Auto) % Lymph % (Auto) % [place] % (Auto) % Eos % (Auto) % Baso % (Auto) % Neut # (Auto) (1.4-6.5) K/uL Lymph # (Auto) (1.2-3.4) K/uL [place] # (Auto) (0.11-0.59) K/uL Eos # (Auto) (0-0.5) K/uL Baso # (Auto) (0-0.2) K/uL Immature Gran # (Auto) (0.00-0.02) K/uL PT 14.6 H (9.0-12.0) Seconds INR 1.4 H (0.9-1.1) APTT (21.0-31.0) Seconds PTT Ratio VBG pH (7.36-7.41) VBG pCO2 (38-50) mmHg VBG pO2 mmHg VBG HCO3 mmol/L VBG O2 Saturation % VBG Base Excess mEq/L Barometric Pressure mm/Hg Sodium 137 (136-145) mmol/L Potassium 4.1 (3.5-5.1) mmol/L Chloride 104 (98-107) mmol/L Carbon Dioxide 30 (21-32) mmol/L Anion Gap 3.0 (3-11) BUN 43 H (7-18) mg/dl Creatinine 1.23 H D (0.6-1.2) mg/dl Est Cr Clr Drug Dosing 49.3 ml/min Est GFR ( Amer) 48.7 Est GFR (Non-Af Amer) 42.0 BUN/Creatinine Ratio 35.1 H (10-20) Glucose 258 H (70-99) mg/dl POC Glucose (70-99) mg/dl Estimat Average Glucose mg/dl Hemoglobin A1c (4.5-5.6) % Lactate (0.4-2.0) mmol/L Calcium 7.7 L (8.5-10.1) mg/dl Magnesium (1.8-2.4) mg/dl Total Bilirubin 0.9 D (0.2-1) mg/dl AST 17 (15-37) U/L ALT 10 L (12-78) U/L Alkaline Phosphatase 50 (45-117) U/L Troponin I 0.033 (0-0.045) ng/ml Total Protein 6.6 (6.4-8.2) gm/dl Albumin 2.0 L (3.4-5.0) gm/dl Globulin 4.6 H (2.5-4.0) gm/dl Albumin/Globulin Ratio 0.4 L (0.9-2) Lipase 216 (73-393) U/L Procalcitonin (0-0.5) ng/ml Urine Color Urine Appearance (Clear) Urine pH (4.5-7.5) Ur Specific [place] (1.000-1.030) Urine Protein (Negative) Urine Glucose (UA) (Negative) Urine Ketones (Negative) Urine Blood (Negative) Urine Nitrite (Negative) Urine Bilirubin (Negative) Urine Urobilinogen (Negative) Ur Leukocyte Esterase (Negative) Urine WBC (Auto) (0-5) /hpf Urine RBC (Auto) (0-4) /hpf U Hyaline Cast (Auto) (0-5) /lpf U Epithel Cells (Auto) (0-5) /lpf Urine Bacteria (Auto) (Negative) Granular Casts (0) /lpf COVID-19 Eval Order SARS-CoV-2, RNA, NAAT (NEGATIVE) 11/20/20 11/19/20 11/19/20 Range/Units 05:41 23:00 22:20 WBC (4.8-10.8) K/uL RBC (4.2-5.4) M/uL Hgb (12.0-16.0) g/dL Hct (37-47) % MCV (80-100) fL MCH (25-34) pg MCHC (32-36) g/dL RDW Std Deviation (36.4-46.3) fL RDW Coeff of [place] (11.5-14.5) % Plt Count (130-400) K/uL MPV (7.4-10.4) fL Immature Gran % (Auto) % Neut % (Auto) % Lymph % (Auto) % [place] % (Auto) % Eos % (Auto) % Baso % (Auto) % Neut # (Auto) (1.4-6.5) K/uL Lymph # (Auto) (1.2-3.4) K/uL [place] # (Auto) (0.11-0.59) K/uL Eos # (Auto) (0-0.5) K/uL Baso # (Auto) (0-0.2) K/uL Immature Gran # (Auto) (0.00-0.02) K/uL PT (9.0-12.0) Seconds INR (0.9-1.1) APTT (21.0-31.0) Seconds PTT Ratio VBG pH (7.36-7.41) VBG pCO2 (38-50) mmHg VBG pO2 mmHg VBG HCO3 mmol/L VBG O2 Saturation % VBG Base Excess mEq/L Barometric Pressure mm/Hg Sodium (136-145) mmol/L Potassium (3.5-5.1) mmol/L Chloride (98-107) mmol/L Carbon Dioxide (21-32) mmol/L Anion Gap (3-11) BUN (7-18) mg/dl Creatinine (0.6-1.2) mg/dl Est Cr Clr Drug Dosing ml/min Est GFR ( Amer) Est GFR (Non-Af Amer) BUN/Creatinine Ratio (10-20) Glucose (70-99) mg/dl POC Glucose 265 H (70-99) mg/dl Estimat Average Glucose mg/dl Hemoglobin A1c (4.5-5.6) % Lactate (0.4-2.0) mmol/L Calcium (8.5-10.1) mg/dl Magnesium (1.8-2.4) mg/dl Total Bilirubin (0.2-1) mg/dl AST (15-37) U/L ALT (12-78) U/L Alkaline Phosphatase (45-117) U/L Troponin I Cancelled 0.060 H* (0-0.045) ng/ml Total Protein (6.4-8.2) gm/dl Albumin (3.4-5.0) gm/dl Globulin (2.5-4.0) gm/dl Albumin/Globulin Ratio (0.9-2) Lipase (73-393) U/L Procalcitonin (0-0.5) ng/ml Urine Color Urine Appearance (Clear) Urine pH (4.5-7.5) Ur Specific [place] (1.000-1.030) Urine Protein (Negative) Urine Glucose (UA) (Negative) Urine Ketones (Negative) Urine Blood (Negative) Urine Nitrite (Negative) Urine Bilirubin (Negative) Urine Urobilinogen (Negative) Ur Leukocyte Esterase (Negative) Urine WBC (Auto) (0-5) /hpf Urine RBC (Auto) (0-4) /hpf U Hyaline Cast (Auto) (0-5) /lpf U Epithel Cells (Auto) (0-5) /lpf Urine Bacteria (Auto) (Negative) Granular Casts (0) /lpf COVID-19 Eval Order SARS-CoV-2, RNA, NAAT (NEGATIVE) 11/19/20 11/19/20 11/19/20 Range/Units 20:55 15:54 15:10 WBC (4.8-10.8) K/uL RBC (4.2-5.4) M/uL Hgb (12.0-16.0) g/dL Hct (37-47) % MCV (80-100) fL MCH (25-34) pg MCHC (32-36) g/dL RDW Std Deviation (36.4-46.3) fL RDW Coeff of [place] (11.5-14.5) % Plt Count (130-400) K/uL MPV (7.4-10.4) fL Immature Gran % (Auto) % Neut % (Auto) % Lymph % (Auto) % [place] % (Auto) % Eos % (Auto) % Baso % (Auto) % Neut # (Auto) (1.4-6.5) K/uL Lymph # (Auto) (1.2-3.4) K/uL [place] # (Auto) (0.11-0.59) K/uL Eos # (Auto) (0-0.5) K/uL Baso # (Auto) (0-0.2) K/uL Immature Gran # (Auto) (0.00-0.02) K/uL PT (9.0-12.0) Seconds INR (0.9-1.1) APTT (21.0-31.0) Seconds PTT Ratio VBG pH (7.36-7.41) VBG pCO2 (38-50) mmHg VBG pO2 mmHg VBG HCO3 mmol/L VBG O2 Saturation % VBG Base Excess mEq/L Barometric Pressure mm/Hg Sodium (136-145) mmol/L Potassium (3.5-5.1) mmol/L Chloride (98-107) mmol/L Carbon Dioxide (21-32) mmol/L Anion Gap (3-11) BUN (7-18) mg/dl Creatinine (0.6-1.2) mg/dl Est Cr Clr Drug Dosing ml/min Est GFR ( Amer) Est GFR (Non-Af Amer) BUN/Creatinine Ratio (10-20) Glucose (70-99) mg/dl POC Glucose 251 H (70-99) mg/dl Estimat Average Glucose mg/dl Hemoglobin A1c (4.5-5.6) % Lactate 1.3 (0.4-2.0) mmol/L Calcium (8.5-10.1) mg/dl Magnesium (1.8-2.4) mg/dl Total Bilirubin (0.2-1) mg/dl AST (15-37) U/L ALT (12-78) U/L Alkaline Phosphatase (45-117) U/L Troponin I (0-0.045) ng/ml Total Protein (6.4-8.2) gm/dl Albumin (3.4-5.0) gm/dl Globulin (2.5-4.0) gm/dl Albumin/Globulin Ratio (0.9-2) Lipase (73-393) U/L Procalcitonin (0-0.5) ng/ml Urine Color Urine Appearance (Clear) Urine pH (4.5-7.5) Ur Specific [place] (1.000-1.030) Urine Protein (Negative) Urine Glucose (UA) (Negative) Urine Ketones (Negative) Urine Blood (Negative) Urine Nitrite (Negative) Urine Bilirubin (Negative) Urine Urobilinogen (Negative) Ur Leukocyte Esterase (Negative) Urine WBC (Auto) (0-5) /hpf Urine RBC (Auto) (0-4) /hpf U Hyaline Cast (Auto) (0-5) /lpf U Epithel Cells (Auto) (0-5) /lpf Urine Bacteria (Auto) (Negative) Granular Casts (0) /lpf COVID-19 Eval Order SARS-CoV-2, RNA, NAAT NEGATIVE (NEGATIVE) 11/19/20 11/19/20 11/19/20 Range/Units 15:10 14:42 13:27 WBC (4.8-10.8) K/uL RBC (4.2-5.4) M/uL Hgb (12.0-16.0) g/dL Hct (37-47) % MCV (80-100) fL MCH (25-34) pg MCHC (32-36) g/dL RDW Std Deviation (36.4-46.3) fL RDW Coeff of [place] (11.5-14.5) % Plt Count (130-400) K/uL MPV (7.4-10.4) fL Immature Gran % (Auto) % Neut % (Auto) % Lymph % (Auto) % [place] % (Auto) % Eos % (Auto) % Baso % (Auto) % Neut # (Auto) (1.4-6.5) K/uL Lymph # (Auto) (1.2-3.4) K/uL [place] # (Auto) (0.11-0.59) K/uL Eos # (Auto) (0-0.5) K/uL Baso # (Auto) (0-0.2) K/uL Immature Gran # (Auto) (0.00-0.02) K/uL PT (9.0-12.0) Seconds INR (0.9-1.1) APTT (21.0-31.0) Seconds PTT Ratio VBG pH 7.35 L (7.36-7.41) VBG pCO2 53 H (38-50) mmHg VBG pO2 33 mmHg VBG HCO3 29 mmol/L VBG O2 Saturation 64.0 % VBG Base Excess 2.2 mEq/L Barometric Pressure 733.7 mm/Hg Sodium (136-145) mmol/L Potassium (3.5-5.1) mmol/L Chloride (98-107) mmol/L Carbon Dioxide (21-32) mmol/L Anion Gap (3-11) BUN (7-18) mg/dl Creatinine (0.6-1.2) mg/dl Est Cr Clr Drug Dosing ml/min Est GFR ( Amer) Est GFR (Non-Af Amer) BUN/Creatinine Ratio (10-20) Glucose (70-99) mg/dl POC Glucose (70-99) mg/dl Estimat Average Glucose mg/dl Hemoglobin A1c (4.5-5.6) % Lactate (0.4-2.0) mmol/L Calcium (8.5-10.1) mg/dl Magnesium (1.8-2.4) mg/dl Total Bilirubin (0.2-1) mg/dl AST (15-37) U/L ALT (12-78) U/L Alkaline Phosphatase (45-117) U/L Troponin I (0-0.045) ng/ml Total Protein (6.4-8.2) gm/dl Albumin (3.4-5.0) gm/dl Globulin (2.5-4.0) gm/dl Albumin/Globulin Ratio (0.9-2) Lipase (73-393) U/L Procalcitonin (0-0.5) ng/ml Urine Color Dark Yellow Urine Appearance Turbid A (Clear) Urine pH 5.0 (4.5-7.5) Ur Specific [place] 1.016 (1.000-1.030) Urine Protein 1+ H (Negative) Urine Glucose (UA) Negative (Negative) Urine Ketones Negative (Negative) Urine Blood Trace H (Negative) Urine Nitrite Negative (Negative) Urine Bilirubin 1+ H (Negative) Urine Urobilinogen Negative (Negative) Ur Leukocyte Esterase 3+ H (Negative) Urine WBC (Auto) >30 H (0-5) /hpf Urine RBC (Auto) 0-4 (0-4) /hpf U Hyaline Cast (Auto) 5-10 H (0-5) /lpf U Epithel Cells (Auto) >30 H (0-5) /lpf Urine Bacteria (Auto) 3+ H (Negative) Granular Casts 1-5 H (0) /lpf COVID-19 Eval [facility]-CoV-2, RNA, NAAT (NEGATIVE) 11/19/20 11/19/20 11/19/20 Range/Units 13:27 13:25 13:25 WBC (4.8-10.8) K/uL RBC (4.2-5.4) M/uL Hgb (12.0-16.0) g/dL Hct (37-47) % MCV (80-100) fL MCH (25-34) pg MCHC (32-36) g/dL RDW Std Deviation (36.4-46.3) fL RDW Coeff of [place] (11.5-14.5) % Plt Count (130-400) K/uL MPV (7.4-10.4) fL Immature Gran % (Auto) % Neut % (Auto) % Lymph % (Auto) % [place] % (Auto) % Eos % (Auto) % Baso % (Auto) % Neut # (Auto) (1.4-6.5) K/uL Lymph # (Auto) (1.2-3.4) K/uL [place] # (Auto) (0.11-0.59) K/uL Eos # (Auto) (0-0.5) K/uL Baso # (Auto) (0-0.2) K/uL Immature Gran # (Auto) (0.00-0.02) K/uL PT (9.0-12.0) Seconds INR (0.9-1.1) APTT (21.0-31.0) Seconds PTT Ratio VBG pH (7.36-7.41) VBG pCO2 (38-50) mmHg VBG pO2 mmHg VBG HCO3 mmol/L VBG O2 Saturation % VBG Base Excess mEq/L Barometric Pressure mm/Hg Sodium (136-145) mmol/L Potassium (3.5-5.1) mmol/L Chloride (98-107) mmol/L Carbon Dioxide (21-32) mmol/L Anion Gap (3-11) BUN (7-18) mg/dl Creatinine (0.6-1.2) mg/dl Est Cr Clr Drug Dosing ml/min Est GFR ( Amer) Est GFR (Non-Af Amer) BUN/Creatinine Ratio (10-20) Glucose (70-99) mg/dl POC Glucose (70-99) mg/dl Estimat Average Glucose mg/dl Hemoglobin A1c (4.5-5.6) % Lactate 2.5 H* (0.4-2.0) mmol/L Calcium (8.5-10.1) mg/dl Magnesium (1.8-2.4) mg/dl Total Bilirubin (0.2-1) mg/dl AST (15-37) U/L ALT (12-78) U/L Alkaline Phosphatase (45-117) U/L Troponin I (0-0.045) ng/ml Total Protein (6.4-8.2) gm/dl Albumin (3.4-5.0) gm/dl Globulin (2.5-4.0) gm/dl Albumin/Globulin Ratio (0.9-2) Lipase 81 (73-393) U/L Procalcitonin 11.02 H (0-0.5) ng/ml Urine Color Urine Appearance (Clear) Urine pH (4.5-7.5) Ur Specific [place] (1.000-1.030) Urine Protein (Negative) Urine Glucose (UA) (Negative) Urine Ketones (Negative) Urine Blood (Negative) Urine Nitrite (Negative) Urine Bilirubin (Negative) Urine Urobilinogen (Negative) Ur Leukocyte Esterase (Negative) Urine WBC (Auto) (0-5) /hpf Urine RBC (Auto) (0-4) /hpf U Hyaline Cast (Auto) (0-5) /lpf U Epithel Cells (Auto) (0-5) /lpf Urine Bacteria (Auto) (Negative) Granular Casts (0) /lpf COVID-19 Eval Order SARS-CoV-2, RNA, NAAT (NEGATIVE) 11/19/20 11/19/20 11/19/20 Range/Units 13:25 13:25 13:25 WBC 22.42 H (4.8-10.8) K/uL RBC 4.84 (4.2-5.4) M/uL Hgb 13.5 (12.0-16.0) g/dL Hct 42.8 (37-47) % MCV 88.4 (80-100) fL MCH 27.9 (25-34) pg MCHC 31.5 L (32-36) g/dL RDW Std Deviation 50.0 H (36.4-46.3) fL RDW Coeff of [place] 15.3 H (11.5-14.5) % Plt Count 242 (130-400) K/uL MPV 11.8 H (7.4-10.4) fL Immature Gran % (Auto) 1.3 % Neut % (Auto) 85.3 % Lymph % (Auto) 6.7 % [place] % (Auto) 6.6 % Eos % (Auto) 0.0 % Baso % (Auto) 0.1 % Neut # (Auto) 19.11 H (1.4-6.5) K/uL Lymph # (Auto) 1.51 (1.2-3.4) K/uL [place] # (Auto) 1.48 H (0.11-0.59) K/uL Eos # (Auto) 0.00 (0-0.5) K/uL Baso # (Auto) 0.03 (0-0.2) K/uL Immature Gran # (Auto) 0.29 H (0.00-0.02) K/uL PT 15.1 H (9.0-12.0) Seconds INR 1.5 H (0.9-1.1) APTT 37.5 H (21.0-31.0) Seconds PTT Ratio 1.3 VBG pH (7.36-7.41) VBG pCO2 (38-50) mmHg VBG pO2 mmHg VBG HCO3 mmol/L VBG O2 Saturation % VBG Base Excess mEq/L Barometric Pressure mm/Hg Sodium 132 L (136-145) mmol/L Potassium 4.2 (3.5-5.1) mmol/L Chloride 95 L (98-107) mmol/L Carbon Dioxide 30 (21-32) mmol/L Anion Gap 7.0 (3-11) BUN 39 H (7-18) mg/dl Creatinine 1.71 H (0.6-1.2) mg/dl Est Cr Clr Drug Dosing 35.5 ml/min Est GFR ( Amer) 32.7 Est GFR (Non-Af Amer) 28.2 BUN/Creatinine Ratio 22.8 H (10-20) Glucose 293 H (70-99) mg/dl POC Glucose (70-99) mg/dl Estimat Average Glucose mg/dl Hemoglobin A1c (4.5-5.6) % Lactate (0.4-2.0) mmol/L Calcium 8.7 (8.5-10.1) mg/dl Magnesium 2.0 (1.8-2.4) mg/dl Total Bilirubin 1.4 H (0.2-1) mg/dl AST 12 L (15-37) U/L ALT 14 (12-78) U/L Alkaline Phosphatase 56 (45-117) U/L Troponin I 0.067 H* (0-0.045) ng/ml Total Protein 7.6 (6.4-8.2) gm/dl Albumin 2.5 L (3.4-5.0) gm/dl Globulin 5.1 H (2.5-4.0) gm/dl Albumin/Globulin Ratio 0.5 L (0.9-2) Lipase (73-393) U/L Procalcitonin (0-0.5) ng/ml Urine Color Urine Appearance (Clear) Urine pH (4.5-7.5) Ur Specific [place] (1.000-1.030) Urine Protein (Negative) Urine Glucose (UA) (Negative) Urine Ketones (Negative) Urine Blood (Negative) Urine Nitrite (Negative) Urine Bilirubin (Negative) Urine Urobilinogen (Negative) Ur Leukocyte Esterase (Negative) Urine WBC (Auto) (0-5) /hpf Urine RBC (Auto) (0-4) /hpf U Hyaline Cast (Auto) (0-5) /lpf U Epithel Cells (Auto) (0-5) /lpf Urine Bacteria (Auto) (Negative) Granular Casts (0) /lpf COVID-19 Eval Order SARS-CoV-2, RNA, NAAT (NEGATIVE) Medications Administered Current Inpatient Medications Acetaminophen (Acetaminophen 325 Mg Tab) 650 mg PO Q4H PRN PRN Reason: Pain or Fever Stop: 12/19/20 22:07 Atropine Sulfate (Atropine Sulfate 0.1 Mg/Ml 10ml Syr) 0.5 mg IV Q1M PRN PRN Reason: PACU Use-HR<40 &/or Bradycardi Stop: 11/20/20 15:43 Dextrose (Dextrose 50% 50 Ml Syringe) 25 - 50 ml IV UD PRN; Protocol PRN Reason: Hypoglycemia Protocol Stop: 12/19/20 22:07 Ephedrine Sulfate (Ephedrine Sulfate 50 Mg/Ml Amp) 5 mg IV Q5M PRN PRN Reason: PACU Use Only-SBP<90 mmHg Stop: 11/20/20 15:43 Fentanyl Citrate (Fentanyl Citrate 100 Mcg/2 Ml Vial) 25 mcg IV Q5M PRN PRN Reason: PACU Use Only-Pain Stop: 11/20/20 15:43 Glucagon (Glucagon For Inj 1 Mg Vial) 1 mg SQ UD PRN; Protocol PRN Reason: Hypoglycemia Protocol Stop: 12/19/20 22:07 Glucose (Glucose 10 Tabs/Tube) 4 - 8 tabs PO UD PRN; Protocol PRN Reason: Hypoglycemia Protocol Stop: 12/19/20 22:07 Glucose (Glucose 40% Gel 15 Gm Tube) 15 - 30 gm PO UD PRN; Protocol PRN Reason: Hypoglycemia Protocol Stop: 12/19/20 22:07 Metronidazole (Flagyl) 500 mg in 100 mls @ 100 mls/hr IV Q8H [facility] Stop: 11/30/20 00:00 Last Infusion: 11/20/20 00:47 Dose: Infused Documented by: Sodium Chloride (Nss 1000ml) 1,000 mls @ 100 mls/hr IV .Q10H TAYO Stop: 12/19/20 22:07 Last Admin: 11/19/20 22:44 Dose: 100 mls/hr Documented by: Cefepime HCl 2,000 mg/ Syringe 20 mls @ 5 mls/min IV Q24H [facility] Stop: 11/29/20 13:59 Ciprofloxacin (Cipro / D5w) 400 mg in 200 mls @ 100 mls/hr IV PREOP [facility]; Protocol Stop: 11/21/20 07:44 Last Admin: 11/20/20 08:04 Dose: 100 mls/hr Documented by: Insulin Aspart (Insulin Aspart 100 Units/Ml 3 Ml Pen) 0 units SC Q6 TAYO Stop: 12/19/20 22:07 Last Admin: 11/20/20 05:51 Dose: 6 units Documented by: Metoprolol Tartrate (Metoprolol Tartrate 100 Mg Tab) 100 mg PO BID [facility] Stop: 12/19/20 22:07 Last Admin: 11/19/20 22:44 Dose: Not Given Documented by: Miscellaneous (Carbohydrates For Hypoglycemia ) 15 - 30 gm PO UD PRN PRN Reason: Hypoglycemia Protocol Stop: 12/19/20 22:07 Miscellaneous Information (Cefepime Consult Active) 1 ea N/A UD PRN PRN Reason: Consult Stop: 12/19/20 22:07 Miscellaneous Information (Pharmacy Glycemic Mgmt Consult) 1 ea N/A UD PRN; Protocol PRN Reason: Consult Stop: 12/19/20 22:17 Morphine Sulfate (Morphine Sulfate 4 Mg/Ml 1 Ml Carp\Vial) 4 mg IV Q4H PRN PRN Reason: Pain Stop: 12/03/20 22:07 Ondansetron HCl (Ondansetron Inj 2 Mg/Ml 2 Ml Vial) 4 mg IV Q6H PRN PRN Reason: Nausea Stop: 12/19/20 22:07 Last Admin: 11/19/20 23:21 Dose: 4 mg Documented by: Ondansetron HCl (Ondansetron Inj 2 Mg/Ml 2 Ml Vial) 4 mg IV ONCE PRN PRN Reason: PACU Use Only-Nausea/Vomiting Stop: 11/20/20 15:43 Pregabalin (Pregabalin 100 Mg Cap) 200 mg PO BID TAYO Stop: 12/19/20 22:07 Last Admin: 11/19/20 22:44 Dose: Not Given Documented by: (1) Sepsis Sepsis acute organ dysfunction status: unspecified Sepsis type: sepsis due to unspecified organism Qualified Code(s): A41.9 - Sepsis, unspecified organism
[2020-11-20] MEDS ORDERED: SUGAMMADEX SODIUM 200 MG/2 ML VIAL IV ONE (08:27)
[2020-11-20] MEDS ORDERED: ALBUTEROL HFA INHALER 8.5 GM ONE (08:36)
--- NOTE | 2020-11-20 10:08 | Post Operative Brief Note ---
Immediate Post Op Note v1 Date of Surgery November 20, 2020 Pre & Post Diagnosis Operation Date: 11/19/20 17:00 Pre-Op Diagnosis: cholangitis Post-Op Diagnosis: cholangitis Operation Date: 11/20/20 10:25 Pre-Op Diagnosis: Sepsis, Cholangitis, Acute Cholecystitis and Cholelithiasis Post-op diagnosis: acute cholecystitis, gangrenous gallbladder I identified the patient and participated in the time-out.: Yes Procedure Operation Date: 11/19/20 17:00 Actual Procedures p endoscopic retrograde cholangiopancreatography - Keara Russell MD Operation Date: 11/20/20 10:25 Actual Procedures p Laparoscopic subtotal Cholecystectomy - Elva Macdonald MD Surgeon Elva Macdonald MD [employer] Killer MARTY Santiago Estimated Blood Loss 30 Findings Consistent with Post-Op Diagnosis acute cholecystitis, significant inflammation on gallbladder wall with gangrenous gallbladder Fluids 400ml Specimens gallbladder Drains Jaylen-Vazquez Drain (10mm flat YURI) Anesthesia Type General Complications none Disposition Accompanied Patient To Recovery: Yes Disposition: Recovery Room Overlapping Procedure I was immediately available: during the entire case.
[2020-11-20] MEDS: METOPROLOL TARTRATE 100 MG TAB PO SCH (10:43)
[2020-11-20] MEDS: PREGABALIN 100 MG CAP PO SCH ×2 (10:43→20:28)
[2020-11-20] MEDS: metroNIDAZOLE 500 MG/100 ML BAG IV SCH ×2 (10:45→16:19)
[2020-11-20] MEDS: fentaNYL citrate 100 MCG/2 ML VIAL IV PRN ×2 (10:59→11:27)
--- NOTE | 2020-11-20 11:05 | Operative Report (OR) ---
DATE OF OPERATION: 11/20/2020 PREOPERATIVE DIAGNOSES: Sepsis, acute cholecystitis, cholelithiasis. POSTOPERATIVE DIAGNOSES: Sepsis, acute cholecystitis, gangrene gallbladder, cholelithiasis. OPERATION: Laparoscopic subtotal cholecystectomy. SURGEON: Elva Macdonald MD. TRANSMISSION WORKER: Selina Gonsalves PA-C. ANESTHESIA: General. ESTIMATED BLOOD LOSS: About 30 mL. FINDINGS: Acute cholecystitis, cholelithiasis with significant inflammation on the gallbladder wall with gangrene gallbladder. COMPLICATIONS: None. INDICATIONS FOR THE PROCEDURE: This is a 80-year-old female who presented to ED with sepsis and with acute cholecystitis with gallstone. The patient was admitted to the hospital and the patient had an ERCP done by the GI doctor, found the patient had significant common bile duct stone with cholangitis and the GI doctor recommended to follow next day to do the cholecystectomy. I recommended to do laparoscopic cholecystectomy, possible open, possible cholangiogram. I did talk to the patient about the benefit, the risk, alternate procedure. I indicated the risks may include but not limited to such as bleeding, infection, sepsis, injury to common bile duct, bile leak, possible subtotal cholecystectomy, injury to other organs, incisional hernia, and even . The patient understands. She signed informed consent and I answered all questions. DETAILS OF PROCEDURE: We brought the patient to the OR, put the patient in the supine position. The patient received SCD on bilateral legs to prevent DVT. Also, patient received 400 mg of Cipro IV for prophylactic antibiotic. The patient received general anesthesia without difficulty. The abdomen was prepped and draped in routine sterile fashion. After timeout, I injected local anesthesia just above the umbilicus by using 1% lidocaine mixed with 0.5% Marcaine. I then made about 1.5 cm incision just above the umbilicus, opened fascia and opened peritoneum under direct vision, put a Debi trocar in, connected to CO2 to create pneumoperitoneum, flow rate at 6 liters per minute, pressure not more than 14 mmHg. Once we got a nice pneumoperitoneum, we put the camera in, looked around the abdomen, it shows normal finding on the liver. However, the gallbladder showed significant distention and inflammation, significant gallbladder wall thickening with gangrene gallbladder and omental adhesions to the gallbladder with pus around the gallbladder. Once we got a confirmed diagnosis, we put another two 5 mm trocars on the right upper quadrant, one 12 trocar on the epigastric area. Once all trocars in, we used a large needle to decompress the gallbladder first. Once we decompressed, we peeled down all omental adhesions to the gallbladder at this moment because of the significant inflammation on the gallbladder and gallbladder neck, it was difficult to identify the cystic duct. I decided to use the top-down technique to take down the gallbladder. Once we took down the gallbladder nearly 90%, I used the Endo-JAJA staple for transection near the cystic duct, rechecked, no leak. Once we transected the gallbladder, we used the harmonic to make an opening on the gallbladder again and suctioned out and removed all the gallstones and we used a saline flush inside the remaining gallbladder, about 10% of the gallbladder remained, we made sure no gallstones left behind. At this moment, I used the Endoloop to close the gallbladder opening x2. Rechecked, no active bleeding, no bile leak and then I removed the gallbladder through the catch bag. Then we reinserted the Debi trocar in, connected to CO2 to create pneumoperitoneum again and it looked like the gallbladder is closed nicely, no leak and no active bleeding, and then I decided to put one 10 mm YURI drainage in through the 5 mm trocar. Then we used 0 nylon, fixed the YURI drainage on the skin. Again, we rechecked the liver bed, no active bleeding, no bile leak. Then we removed all trocars under direct vision. No active bleeding from the trocar sites. Pneumoperitoneum was released, now closed the umbilical incision, fascial layer by using 0 Vicryl [id number] x2, closed subcutaneous layer by using 2-0 Vicryl interruptedly, closed skin by using 4-0 Vicryl continuous running, closed the epigastric area incision, the fascial layer by using 0 Vicryl [id number] x2, subcutaneous layer by using 2-0 Vicryl interruptedly, closed skin by using 4-0 Vicryl interruptedly. Then we closed another two 5 mm trocar site skin only by using 4-0 Vicryl and then we put the dressing on. The patient tolerated the procedure well. All instrument, needle and sponge count were correct x2 at the end of the case. The patient was transferred to recovery room in stable condition. The specimen was sent to pathology.first officer Selina is necessary for holding camera and retraction, I attest to the content of the Intraoperative Record and any orders documented therein. Any exceptions are noted below. ЕЛЕНА
--- NOTE | 2020-11-20 11:51 | Communication Note ---
Date of Service: November 20, 2020 Pt is s/p ERCP for cholangitis on 11/19/2019 - choledocholithiasis removed, pancreatic and biliary stents placement done. She was already taken to OR for ch olecystectomy this AM when I attempted to see her in her room. WBC and LFTs trended. - Trend LFTs - IV antibx - Avoid NSAIDs and ASA for 5 days for sphincterectomy - Repeat ERCP 6 weeks for stent removal - Pls recall GI prn
--- NOTE | 2020-11-20 12:24 | Anesthesiology Progress Note ---
Date of Service November 20, 2020 Anesthesia Post Procedure Vital Signs Vital Signs: Temp Pulse Pulse Resp BP BP Pulse Ox 11/20/20 12:05 86 23 117/56 L 92 11/20/20 11:55 36.4 C L 87 28 H 118/50 L 93 11/20/20 11:45 88 23 116/55 L 93 11/20/20 11:35 86 21 128/52 L 92 11/20/20 11:25 85 27 H 112/61 92 11/20/20 11:15 85 24 128/68 93 11/20/20 11:05 89 29 H 124/68 91 11/20/20 10:55 84 31 H 121/85 94 11/20/20 10:54 86 26 H 94 11/20/20 10:47 36.2 C L 89 23 125/54 L 94 11/20/20 10:28 71 11/20/20 07:58 37.6 C H 73 20 136/74 98 11/20/20 07:30 11/20/20 02:33 36.5 C 73 19 114/69 95 11/19/20 23:30 84 18 99/64 L 94 11/19/20 23:00 89 18 120/59 L 95 11/19/20 22:30 36.6 C 87 18 99/64 L 93 11/19/20 22:05 93 H 20 100/61 93 11/19/20 21:55 37.5 C 88 20 126/68 92 11/19/20 21:30 93 H 20 120/67 95 11/19/20 21:20 36.9 C 95 H 20 122/69 96 11/19/20 21:10 95 H 19 120/62 97 11/19/20 21:00 98 H 27 H 126/66 96 11/19/20 20:52 37.1 C 102 H 28 H 130/67 93 11/19/20 18:30 97 H 26 H 108/60 94 11/19/20 18:00 96 H 26 H 109/54 L 96 11/19/20 17:31 95 H 24 108/62 94 11/19/20 17:00 96 H 24 99/64 L 95 11/19/20 16:30 98 H 25 H 119/63 98 11/19/20 16:20 96 H 27 H 116/61 96 11/19/20 16:01 100 H 28 H 97/58 L 96 11/19/20 15:58 37.9 C H 11/19/20 15:30 110 H 28 H 95 11/19/20 15:00 101 H 30 H 100 11/19/20 14:39 103 H 20 97 11/19/20 14:30 103 H 20 107/64 93 11/19/20 14:18 100 H 20 97 11/19/20 14:00 101 H 24 98 11/19/20 13:42 100 H 24 113/77 80 L 11/19/20 13:35 39.2 C H 103 H 24 104/52 L 80 L 11/19/20 13:32 104 H 20 97 11/19/20 13:30 103 H 24 113/77 96 11/19/20 13:29 104 H 20 104/52 L 96 11/19/20 13:25 101 H 20 98 Pulse Ox 11/20/20 12:05 11/20/20 11:55 11/20/20 11:45 11/20/20 11:35 11/20/20 11:25 11/20/20 11:15 11/20/20 11:05 11/20/20 10:55 11/20/20 10:54 11/20/20 10:47 11/20/20 10:28 11/20/20 07:58 11/20/20 07:30 98 11/20/20 02:33 11/19/20 23:30 11/19/20 23:00 11/19/20 22:30 11/19/20 22:05 11/19/20 21:55 11/19/20 21:30 11/19/20 21:20 11/19/20 21:10 11/19/20 21:00 11/19/20 20:52 11/19/20 18:30 11/19/20 18:00 11/19/20 17:31 11/19/20 17:00 11/19/20 16:30 11/19/20 16:20 11/19/20 16:01 11/19/20 15:58 11/19/20 15:30 11/19/20 15:00 11/19/20 14:39 11/19/20 14:30 11/19/20 14:18 11/19/20 14:00 11/19/20 13:42 11/19/20 13:35 11/19/20 13:32 11/19/20 13:30 11/19/20 13:29 11/19/20 13:25 Pain Intensity Abdomen: Pain Intensity: 4 Transfer of Care Handoff Completed per policy Notes Mental Status: alert / awake / arousable and participated in evaluation Patient Amnestic to Procedure: Yes Nausea / Vomiting: adequately controlled Pain: adequately controlled Airway Patency, RR, SpO2: see Notes below BP & HR: stable & adequate Hydration State: stable & adequate Anesthetic Complications: no major complications apparent and Pt Satisfied with anesthetic care Notes: Preop plan was to extubate patient if able after the procedure and to maintain her on BiPAP post surgery given that she was in a mild respiratory distress given her underlying medical issues. She was successfully extubated and of note she received sugammadex at the end of the procedure to fully remove any residual paralytic. BiPAP was in place in PACU by respiratory and patient was maintained on this postoperatively. I felt she should continue BiPAP post-PACU in PCU until she more fully recovers from anesthesia. This was relayed to her primary team and they agreed with the plan.
[2020-11-20] MEDS ORDERED: ACETAMINOPHEN 325 MG TAB PO PRN (13:07)
[2020-11-20] MEDS ORDERED: MECLIZINE HCL 25 MG TAB PO PRN (13:07)
[2020-11-20] MEDS: SODIUM CHLORIDE 0.9% 1000ML 1,000 ML IV SCH ×2 (13:59→17:09)
[2020-11-20] MEDS ORDERED: CEFEPIME 2,000 MG in SYRINGE 0 ML IV SCH (14:00)
[2020-11-20] MEDS ORDERED: FUROSEMIDE 40 MG TAB PO SCH (14:00)
[2020-11-20] MEDS ORDERED: POTASSIUM CHLORIDE CRTAB 20 MEQ TABCR PO SCH (14:00)
--- NOTE | 2020-11-20 14:47 | Pharmacy Report ---
Glycemic Control Consultation - Date of Service November 20, 2020 - Scope Scope: Glycemic Pharmacist consulted for glycemic control and to write orders per [facility] inpatient glycemic control protocol. - Objective Weight: 124.7 kg Accuchecks BSG (last 24hrs): 11/19/20 11/19/20 11/20/20 20:55 23:00 05:41 Glucose 258 H POC Glucose 251 H 265 H 11/20/20 11/20/20 11/20/20 05:48 07:51 10:52 Glucose POC Glucose 254 H 222 H 224 H 11/20/20 14:14 Glucose POC Glucose 224 H Laboratory Data (last 24hrs): 11/20/20 05:41 Potassium 4.1 Carbon Dioxide 30 Anion Gap 3.0 Creatinine 1.23 H D Est Cr Clr Drug Dosing 49.3 HbA1c: Hemoglobin A1c 7.4 % (4.5-5.6) H 11/20/20 05:41 - Recent Pertinent Medications Outpatient Anti-diabetic Regimen: * Lantus 40 units in the morning and 42 units in the evening * A1c = 7.4 % 11/20/20 The patient is currently receiving: * Basal insulin: Lantus 20 units SQ x 1 * Correctional Insulin: Novolog Correction per scale ACHS Goal Range: Low 110 mg/dL - High 150 mg/dL Correction Factor: 20 mg/dL/unit * Prandial insulin: Per carb ratio of 1 unit per -- grams CHO consumed * Oral Agents: Risk Factors for Insulin Resistance: * Infection: cefepime + Flagyl for bacteremia and cholangitis * Recent Surgery: POD 0 for ERCP with stent removal and lap france * Diet: NPO --> clear liquid - Assessment & Plan Assessment & Plan: ASSESSMENT: * Ms Felix is a 80 y/o F with a PMH of T2DM moderately controlled who presents with cholangitis. She is maintained on a regimen of Lantus + 1 oral agent. * Patient was given half of her home dose yesterday evening (20 units) and blood sugars have not decreased below 200 mg/dL. Lantus 20 units was ordered for this morning but patient left to OR prior to nursing being able to give. * Will give Lantus 40 units SQ with dinner as the full 24 hour Lantus dose. This represents half of patient's home dose which is reasonable. * Start weight-based stress of 2 Novolog. * Hold glipizide. PLAN FOR INPATIENT GLYCEMIC CONTROL: * Holding outpatient oral diabetes medications * Basal insulin * Lantus 40 units SQ x 1 * Bolus insulin * NovoLog per scale ACHS or Q6hrs while NPO * Goal Range: Low 110 mg/dL - High 140 mg/dL * Correction Factor: 20 mg/dL/unit * Nutritional / Prandial insulin per carb ratio of 1 unit per 6 grams CHO consumed * Please note that the plan above was derived based on current level of insulin resistance and hospital stress. These recommendations are appropriate for inpatient admission only. Plan of care upon discharge will need to be reassessed to avoid potential outpatient hypo/hyperglycemia. Thank you.
[2020-11-20] MEDS: CHOLECALCIFEROL 1,000 UNITS 25 MCG TAB PO SCH (15:06)
[2020-11-20] MEDS ORDERED: INSULIN GLARGINE SOLOSTAR 100 UNITS/ML 3 ML PEN SC SCH (16:30)
[2020-11-20] MEDS ORDERED: METOPROLOL TARTRATE 100 MG TAB PO STA (16:47)
[2020-11-20] MEDS ORDERED: metFORMIN HCL 500 MG TAB PO SCH (17:00)
[2020-11-20] MEDS ORDERED: glipiZIDE 5 MG TAB PO SCH (17:00)
--- NOTE | 2020-11-20 20:08 | Electrocardiogram Report ---
Test Reason : Blood Pressure : / mmHG Vent. Rate : 109 BPM Atrial Rate : 109 BPM P-R Int : 172 ms QRS Dur : 114 ms QT Int : 334 ms P-R-T Axes : 057 -53 096 degrees QTc Int : 449 ms Sinus tachycardia Left anterior fascicular block Left ventricular hypertrophy with repolarization abnormality Cannot rule out Septal infarct (cited on or before 08-AUG-2004) Poor R wave progression, consider anterior AR vs. lead placement vs. LVH Abnormal ECG When compared with ECG of 09-AUG-2004 07:17, Voltage criteria for left ventricular hypertrophy is now Present Possible Septal infarct is now Present Confirmed by Christian Jasso ([id number]) on 11/20/2020 8:08:13 PM Referred By: REFERRED SELF Confirmed By:Christian Jasso
[2020-11-20] MEDS: CYCLOBENZAPRINE HCL 10 MG TAB PO SCH (20:29)
[2020-11-20] MEDS ORDERED: INSULIN GLARGINE 100 UNIT/ML VIAL SQ SCH (21:00)
--- NOTE | 2020-11-20 23:00 | Electrocardiogram Report ---
Test Reason : Blood Pressure : / mmHG Vent. Rate : 100 BPM Atrial Rate : 100 BPM P-R Int : 156 ms QRS Dur : 112 ms QT Int : 342 ms P-R-T Axes : 039 -48 088 degrees QTc Int : 441 ms Sinus rhythm with occasional Premature atrial complexes Left anterior fascicular block Left ventricular hypertrophy with repolarization abnormality Abnormal ECG When compared with ECG of 19-NOV-2020 13:14, Premature atrial complexes are now Present Minimal criteria for Septal infarct are no longer Present Confirmed by Christian Jasso ([id number]) on 11/20/2020 11:00:07 PM Referred By: REFERRED SELF Confirmed By:Christian Jasso
[2020-11-21] MEDS: METOPROLOL TARTRATE 100 MG TAB PO SCH ×3 (00:22→22:17)
[2020-11-21] MEDS: metroNIDAZOLE 500 MG/100 ML BAG IV SCH ×3 (00:22→17:11)
[2020-11-21] MEDS: SODIUM CHLORIDE 0.9% 1000ML 1,000 ML IV SCH ×2 (04:25→16:48)
[2020-11-21 06:20] LABS: Basophils # (auto) 0.01 K/uL (0-0.2); Basophils % (auto) 0.1 %; Hematocrit (blood only) 37.5 % (37-47); Hemoglobin 11.4 g/dL (12.0-16.0); Immature Granulocytes # (auto) 0.07 K/uL (0.00-0.02); Immature Granulocytes % (auto) 0.5 %; Lymphocytes # (auto) 0.65 K/uL (1.2-3.4); Lymphocytes % (auto) 4.5 %; Mean Corpuscular Hemoglobin 27.9 pg (25-34); Mean Corpuscular Hgb Conc 30.4 g/dL (32-36); Mean Corpuscular Volume 91.9 fL (80-100); Monocytes # (auto) 1.59 K/uL (0.11-0.59); Neutrophils # (auto) 12.14 K/uL (1.4-6.5); Neutrophils % (auto) 83.9 %; Platelet Count 217 K/uL (130-400); RDW Coefficient of Variation 15.8 % (11.5-14.5); RDW Standard Deviation 53.2 fL (36.4-46.3); Red Blood Count 4.08 M/uL (4.2-5.4); White Blood Count 14.46 K/uL (4.8-10.8)
[2020-11-21 07:01] LABS: Albumin Globulin Ratio 0.4 (0.9-2); Albumin Level 1.7 gm/dl (3.4-5.0); BUN Creatinine Ratio 40.7 (10-20); Bilirubin,Total 0.5 mg/dl (0.2-1); Calcium 7.9 mg/dl (8.5-10.1); Creatinine Clr Calc Pharmacy 56.3 ml/min; Est GFR (African American) 56.9; Est GFR (Non-African American) 49.1; Globulin 4.6 gm/dl (2.5-4.0); Phosphorus 2.5 mg/dl (2.5-4.9); Total Protein 6.3 gm/dl (6.4-8.2)
[2020-11-21] MEDS: CHOLECALCIFEROL 1,000 UNITS 25 MCG TAB PO SCH (07:45)
[2020-11-21] MEDS: CYANOCOBALAMIN 500 MCG TABLET (VITAMIN B-12) PO SCH (07:46)
[2020-11-21] MEDS: CYCLOBENZAPRINE HCL 10 MG TAB PO SCH (07:47)
--- NOTE | 2020-11-21 08:00 | Hospitalist Progress Note ---
Date of Service November 21, 2020 Assessment & Plan Admission and Anticipated Discharge Date Admission Date: November 19, 2020 Results & Data Results & Data ([facility]) Vital Signs (Past 12 Hours) Vital Signs Temp Pulse Resp BP Pulse Ox 11/21/20 03:57 37.0 C 82 21 95/61 L 94 11/20/20 23:35 37.6 C H 96 H 19 110/80 92
[2020-11-21 08:15] LABS: Potassium 4.6 mmol/L (3.5-5.1)
[2020-11-21] MEDS: INSULIN ASPART 100 UNITS/ML 3 ML PEN SC SCH ×4 (08:16→22:41)
[2020-11-21 08:20] LABS: Magnesium 2.4 mg/dl (1.8-2.4)
[2020-11-21] MEDS: PREGABALIN 100 MG CAP PO SCH ×2 (08:20→22:17)
[2020-11-21] MEDS ORDERED: POTASSIUM CHLORIDE CRTAB 20 MEQ TABCR PO SCH (09:00)
[2020-11-21] MEDS ORDERED: INSULIN GLARGINE 100 UNIT/ML VIAL SQ SCH (09:00)
[2020-11-21] MEDS ORDERED: lisinopril 10 MG TAB PO SCH (09:00)
[2020-11-21] MEDS ORDERED: FLUTICASONE PROPIONATE NA SPR 16 GM BTL SCH (09:00)
[2020-11-21] MEDS ORDERED: FUROSEMIDE 80 MG TAB PO SCH (09:00)
[2020-11-21] MEDS ORDERED: CHOLECALCIFEROL 1,000 UNITS 25 MCG TAB PO SCH ×2 (09:00)
[2020-11-21] MEDS ORDERED: NON-FORMULARY MEDICATION (Turmeric Root Extract 500 mg Capsule) PO SCH (09:00)
[2020-11-21] MEDS ORDERED: ANASTROZOLE 1 MG TAB PO SCH (09:00)
[2020-11-21] MEDS ORDERED: SODIUM CHLORIDE 0.9% 1000ML 500 ML IV ONE (09:04)
--- NOTE | 2020-11-21 09:22 | Cardiology Consultation ---
Date of Consultation November 21, 2020 Assessment & Plan (1) Atrial flutter with rapid ventricular response: (2) NSVT (nonsustained ventricular tachycardia): (3) Moderate aortic stenosis: (4) HTN (hypertension): (5) History of paroxysmal supraventricular tachycardia: (6) History of paroxysmal atrial tachycardia: (7) Acute cholecystitis: (8) Lymphedema, not elsewhere classified: (9) History of pulmonary embolism: (10) DM type 2 (diabetes mellitus, type 2): (11) SHAYNE (acute kidney injury): Telemetry and EKG reviewed and patient is in atrial flutter with variable AV block. Tolerating well clinically without symptoms, however, blood pressure reportedly low by nursing. I performed a blood pressure readings myself and obtained 85mmHg systolically. Again patient clinically stable. No current indication for emergent cardioversion unless clinical status deteriorates. We will start amiodarone bolus and load and follow closely. Heparin to be restarted at this time, no contraindications from a surgical standpoint. Should also be continued on metoprolol. Continue to follow closely on telemetry Routine echocardiogram will be performed once her rates are controlled to reevaluate for structural abnormalities and any progression of her aortic stenosis. History of Present Illness Reason for Consultation: NSVT Requesting Physician: Rosa Attending Physician: Greyson Lee MD History of Present Illness 80-year-old female previously seen by Dr. Ricci of her cardiology practice for PSVT. Presented [facility] on 11/19/2020 with complaints of abdominal pain. Underwent laparoscopic cholecystectomy and transferred to telemetry. Early in the a.m. of 11/21/2020 started having runs of narrow complex tachycardia and then wide-complex tachycardia. Patient states that she was asymptomatic during this time and nursing reports no symptoms. In the a.m. of 11/21/2020 she became tachycardic into the 150s with a narrow complex rhythm. A routine consult was placed and I was alerted by the progressive care unit registered nurse and patient was seen and examined at that time. Currently she states that she still has abdominal discomfort but denies any cardiac complaints of chest pain, shortness of breath, palpitations, lightheadedness, dizziness or syncope. Allergies Allergy/AdvReac Type Severity Reaction Status Date / Time rosiglitazone Allergy Mild UNKNOWN-RELATED Verified 11/19/20 16:08 POSS TO DVT/PE PER MEDICAL RECORD acetaminophen Allergy Unknown HIVES Verified 11/19/20 16:08 latex Allergy Unknown "Tape Verified 11/19/20 16:08 causes redness" Penicillins Allergy Unknown SOB Unverified 11/19/20 16:08 ,THROAT SHUT,COULDN'T BREATHE tramadol Allergy Unknown UNKNOWN Verified 11/19/20 16:08 Home Medications Medication Instructions Recorded Confirmed Type anastrozole 1 mg tablet 1 mg PO DAILY 06/12/20 11/19/20 History clindamycin phosphate 1 % topical 1 appln TOP BID 06/12/20 11/19/20 History gel cyanocobalamin (vitamin B-12) 1,000 mcg PO DAILY 06/12/20 11/19/20 History 1,000 mcg tablet cyclobenzaprine 10 mg tablet 10 mg PO BID tab 06/12/20 11/19/20 History fluticasone propionate 50 2 sprays INTNAS DAILY 06/12/20 11/19/20 History mcg/actuation nasal spray,suspension furosemide 40 mg tablet 40 mg PO TUTHSA 06/12/20 11/19/20 History glipizide 5 mg tablet 5 mg PO BID 06/12/20 11/19/20 History insulin glargine 100 unit/mL 40 units SQ QAM 06/12/20 11/19/20 History subcutaneous solution insulin glargine 100 unit/mL 42 units SQ QPM ml 06/12/20 11/19/20 History subcutaneous solution lisinopril 10 mg tablet 10 mg PO DAILY 06/12/20 11/19/20 History metformin 1,000 mg tablet 1,000 mg PO BID 06/12/20 11/19/20 History metoprolol tartrate 100 mg tablet 100 mg PO BID 06/12/20 11/19/20 History potassium chloride 20 mEq 40 meq PO SUMOWEFR 06/12/20 11/19/20 History tablet,extended release pregabalin 200 mg capsule 200 mg PO BID 06/12/20 11/19/20 History acetaminophen [Tylenol] 325 mg PO Q4 PRN 11/19/20 11/19/20 History cholecalciferol (vitamin D3) 50 mcg PO Q2D 11/19/20 11/19/20 History cholecalciferol (vitamin D3) 25 mcg PO Q2D 11/19/20 11/19/20 History [Vitamin D3] furosemide [Lasix] 80 mg PO SUMOWEFR 11/19/20 11/19/20 History meclizine 25 mg PO TID PRN 11/19/20 11/19/20 History potassium chloride 20 meq PO TUTHSA 11/19/20 11/19/20 History turmeric root extract 500 mg PO DAILY 11/19/20 11/19/20 History warfarin 5 mg PO SUTUWETHSA 11/19/20 11/19/20 History warfarin 7.5 mg PO MOFR 11/19/20 11/19/20 History Patient History Medical History Atrial paroxysmal tachycardia Chronic venous insufficiency Diabetes mellitus with neuropathy DM type 2 (diabetes mellitus, type 2) Esophagitis, reflux Essential (primary) hypertension Generalized OA History of paroxysmal atrial tachycardia History of paroxysmal supraventricular tachycardia History of pulmonary embolism HTN (hypertension) 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 Lymphedema, not elsewhere classified Malignant neoplasm of upper-outer quadrant of left female breast Moderate aortic stenosis Morbid (severe) obesity due to excess calories Obstructive sleep apnea (adult) (pediatric) PAD (peripheral artery disease) Vitamin D insufficiency Surgical History H/O left mastectomy Previous back surgery S/P hysterectomy S/P right rotator cuff repair Family History Other Family history non-contributory Social History Smoking Status: Never smoker Hx Alcohol Use: No Hx Substance Use: No Preferred Language: Slovenian Communication Ability: Effective Visual Impairment: Limited Hearing Ability: Normal 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 No acute distress. HEENT: Normocephalic, atraumatic. Pupils equal, round and reactive to light and accommodation. Extraocular muscles are intact. Anicteric sclera. Moist mucous membranes. Neck: No JVD. No bruit. Cardiovascular: irregularly irregular, unable to appreciate murmur, rub or gallop. Pulmonary: Clear to auscultation bilaterally. No rales, rhonchi, or wheezing. Abdomen: Deferred due to pain Extremities: No clubbing, cyanosis or edema. +2 pedal pulses bilaterally. Skin: Warm and dry. Results & Data ([facility]) Vital Signs (Past 12 Hours) Vital Signs Temp Pulse Resp BP Pulse Ox 11/21/20 08:24 36.9 C 105 H 24 81/43 L 92 11/21/20 03:57 37.0 C 82 21 95/61 L 94 11/20/20 23:35 37.6 C H 96 H 19 110/80 92
[2020-11-21] MEDS ORDERED: Heparin IV Standard *NO* Bolus IV ONE (09:32)
[2020-11-21] MEDS ORDERED: STAT IV Infusion **Titration per Protocol STA ×2 (09:34→20:30)
[2020-11-21] MEDS ORDERED: AMIODARONE IV BOLUS & DRIP IV STA (09:34)
[2020-11-21] MEDS ORDERED: 0.2 MICRON FILTER SET 1 EA IV ONE (09:34)
[2020-11-21] MEDS ORDERED: AMIODARONE / D5W 150 MG/100 ML BAG IV ONE (09:45)
--- NOTE | 2020-11-21 09:50 | Surgery Progress Note ---
Date of Service F/U S/P laparoscopic subtotal cholecystectomy, POD 1 pt developed A-Fib this morning, HR 120-130, BP 81/43MMHG, mild abdominal pain, O2 sat 95% on mask, YURI 300 ml clear fluid, WBC down to 14,000, ( T ) bilirubin 0.5, H/H/11.4 /37.5urine output 800ml November 21, 2020 Assessment & Plan (1) Sepsis: (2) Cholangitis: pt is a 80 year-old female who presents to Er with 3-4 days history epigastric pain with back pain, IMP: sepsis, cholangitis, acute cholecystitis, cholelithiasis, acute renal dysfunction Plan, hospitalist will admit pt to hospital, consult GI doctor for possible emergent ERCP for obstructed CBD stone, IV fluid, IV antibiotic, U/S study for gallbladder and HIDA scan tomorrow, repeat labs CBC, CMP in morning, Thanks, possible do laparoscopic cholecystectomy in 1-2 days so, pt and her agree with the plan, D/W ER attending, will F/U, Thanks, 11/21/2020 9:53AM S/P laparoscopic subtotal cholecystectomy, I did called pt's about OR finding and the procedure pt had after surgery yesterday, I answered all questions, POD 1, no active bleeding signs, developed A-Fib, D/W hospitalist, IV fluid, CT scan chest to R/O recurrent PE, pt can have heparin treatment if conform diagnosis: recurrent PE. will F/U, senior telecommunications specialist surgeon will cover this weekend Thanks, (3) Acute cholecystitis due to biliary calculus: Admission and Anticipated Discharge Date Admission Date: November 19, 2020 Supervising Physician Co-Signing Physician Notes I have seen and examined the patient and have discussed the case with the provider above. I agree with the assessment and plan as stated with the following exception. She underwent ERCP and was found to have ascending cholangitis 2/2 choledocholithiasis. Removal was accomplished by biliary sphincterotomy and balloon extraction. One plastic pancreatic stent was placed into the ventral pancreatic duct to decrease the risk of post-ERCP pancreatitis. One covered metal and a double pigtail plastic biliary stents were placed into the common bile duct. Prior to procedure she was examined in the ER and was ill-appearing generally. As described above she endorses abdominal pain for several days which is present on exam; specifically her abdomen is soft and nondistended but tender in the epigastric and RUQ areas with general discomfort throughout. She appeared septic and was started on IVF resuscitation and broad spectrum antibiotics. She was newly hypoxic, and although there was initially a concern of PE, especially in the setting of recent lower right leg trauma, this may be from her acute GI illness. Lower leg doppler ultrasound was ordered but not completed this evening as she underwent ERCP instead. This is pending. Cont close clinical monitoring in PCU setting post-procedure. She will likely need cholecystectomy which will possibly take place tomorrow. Would keep patient NPO. Robert, DO Subjective Pt seen in follow up of acute ascending cholengitis and acute cholecystitis. Currently s/p lap. fatuma, reports having nausea after anesthesia. No chest pain. Remains hypoxic, on suppl. O2. Report chronic shortness of breath. Review of Systems Constitutional: as per Subjective / HPI obesity Eyes: as per Subjective / HPI Ear, Nose, Mouth, Throat: as per Subjective / HPI Respiratory: as per Subjective / HPI Cardiovascular: as per Subjective / HPI Additional Comments: PAD, chronic venous insufficiency Gastrointestinal: as per Subjective / HPI Genitourinary: as per Subjective / HPI breast cancer Musculoskeletal: as per Subjective / HPI Integumentary: as per Subjective / HPI Neurologic: as per Subjective / HPI Psychiatric: as per Subjective / HPI Endocrine: as per Subjective / HPI DM Physical Exam Constitutional: WD/WN, vitals as above well developed and well nourished Eyes: PERRL, conjunctivae normal, anicteric sclerae ENMT: external ear and nose normal, oropharynx normal Neck: trachea midline, no thyromegaly Respiratory: normal respiratory effort, lungs clear to auscultation normal respiratory effort Cardiovascular: Rate/Rhythm: + irregularly irregular Heart Sounds: normal S1 and normal S2 Gastrointestinal (Abdomen): Percussion/Palpation: + abdomen tender and abdomen soft mild tenderness at RUQ, no rebound pain, no distend, BS + Musculoskeletal: no cyanosis or clubbing, extremities motor strength 5/5 Skin: no rashes, warm and dry Neurologic: awake Psychiatric: Orientation: alert and oriented x 3 Results & Data ([facility]) Vital Signs (Past 12 Hours) Vital Signs Temp Pulse Resp BP Pulse Ox 11/21/20 08:24 36.9 C 105 H 24 81/43 L 92 11/21/20 03:57 37.0 C 82 21 95/61 L 94 11/20/20 23:35 37.6 C H 96 H 19 110/80 92 Laboratory Results Abnormal lab results 11/20/20 11/20/20 11/20/20 Range/Units 10:52 14:14 16:25 WBC (4.8-10.8) K/uL RBC (4.2-5.4) M/uL Hgb (12.0-16.0) g/dL MCHC (32-36) g/dL RDW Std Deviation (36.4-46.3) fL RDW Coeff of [place] (11.5-14.5) % MPV (7.4-10.4) fL Neut # (Auto) (1.4-6.5) K/uL Lymph # (Auto) (1.2-3.4) K/uL [place] # (Auto) (0.11-0.59) K/uL Immature Gran # (Auto) (0.00-0.02) K/uL Chloride (98-107) mmol/L BUN (7-18) mg/dl BUN/Creatinine Ratio (10-20) Glucose (70-99) mg/dl POC Glucose 224 H 224 H 247 H (70-99) mg/dl Calcium (8.5-10.1) mg/dl Total Protein (6.4-8.2) gm/dl Albumin (3.4-5.0) gm/dl Globulin (2.5-4.0) gm/dl Albumin/Globulin Ratio (0.9-2) 11/20/20 11/21/20 11/21/20 Range/Units 20:33 05:35 05:35 WBC 14.46 H (4.8-10.8) K/uL RBC 4.08 L (4.2-5.4) M/uL Hgb 11.4 L (12.0-16.0) g/dL MCHC 30.4 L (32-36) g/dL RDW Std Deviation 53.2 H (36.4-46.3) fL RDW Coeff of [place] 15.8 H (11.5-14.5) % MPV 12.0 H (7.4-10.4) fL Neut # (Auto) 12.14 H (1.4-6.5) K/uL Lymph # (Auto) 0.65 L (1.2-3.4) K/uL [place] # (Auto) 1.59 H (0.11-0.59) K/uL Immature Gran # (Auto) 0.07 H (0.00-0.02) K/uL Chloride 111 H (98-107) mmol/L BUN 44 H (7-18) mg/dl BUN/Creatinine Ratio 40.7 H (10-20) Glucose 144 H (70-99) mg/dl POC Glucose 153 H (70-99) mg/dl Calcium 7.9 L (8.5-10.1) mg/dl Total Protein 6.3 L (6.4-8.2) gm/dl Albumin 1.7 L (3.4-5.0) gm/dl Globulin 4.6 H (2.5-4.0) gm/dl Albumin/Globulin Ratio 0.4 L (0.9-2) 11/21/20 Range/Units 07:10 WBC (4.8-10.8) K/uL RBC (4.2-5.4) M/uL Hgb (12.0-16.0) g/dL MCHC (32-36) g/dL RDW Std Deviation (36.4-46.3) fL RDW Coeff of [place] (11.5-14.5) % MPV (7.4-10.4) fL Neut # (Auto) (1.4-6.5) K/uL Lymph # (Auto) (1.2-3.4) K/uL [place] # (Auto) (0.11-0.59) K/uL Immature Gran # (Auto) (0.00-0.02) K/uL Chloride (98-107) mmol/L BUN (7-18) mg/dl BUN/Creatinine Ratio (10-20) Glucose (70-99) mg/dl POC Glucose 144 H (70-99) mg/dl Calcium (8.5-10.1) mg/dl Total Protein (6.4-8.2) gm/dl Albumin (3.4-5.0) gm/dl Globulin (2.5-4.0) gm/dl Albumin/Globulin Ratio (0.9-2) (1) Sepsis Sepsis acute organ dysfunction status: unspecified Sepsis type: sepsis due to unspecified organism Qualified Code(s): A41.9 - Sepsis, unspecified organism
--- NOTE | 2020-11-21 09:56 | Surgery Progress Note ---
Date of Service November 21, 2020 Assessment & Plan (1) Sepsis: (2) Cholangitis: (3) Acute cholecystitis due to biliary calculus: Admission and Anticipated Discharge Date Admission Date: November 19, 2020 Results & Data ([facility]) Vital Signs (Past 12 Hours) Vital Signs Temp Pulse Resp BP Pulse Ox 11/21/20 08:24 36.9 C 105 H 24 81/43 L 92 11/21/20 03:57 37.0 C 82 21 95/61 L 94 11/20/20 23:35 37.6 C H 96 H 19 110/80 92 (1) Sepsis Sepsis acute organ dysfunction status: unspecified Sepsis type: sepsis due to unspecified organism Qualified Code(s): A41.9 - Sepsis, unspecified organism
[2020-11-21] MEDS ORDERED: AMIODARONE / D5W 360 MG/200 ML BAG IV ONE (10:00)
[2020-11-21] MEDS: HEPARIN SODIUM/DEXTROSE 25,000 UNITS/500 ML BAG IV SCH (10:09)
[2020-11-21] MEDS ORDERED: OPTIRAY 320 125ml IV ONE ×2 (10:28→22:53)
--- NOTE | 2020-11-21 11:13 | Hospitalist Progress Note ---
Date of Service November 21, 2020 Assessment & Plan (1) Choledocholithiasis: (2) Ascending cholangitis: (3) Acute cholecystitis: -Patient presenting from home with reports of epigastric abdominal pain x 5 days -In the ED, CT ABD/pelvis shows findings are consistent with acute cholecystitis and could represent early gangrenous change -Severe sepsis on presentation with fever, tachycardia, hypotension, WBC 22K, lactic acid 2.5. BP improved after IVF, repeat lactate 1.3 -ERCP 11/19/2020: + Choledocholithiasis, ascending cholangitis, stents placed -S/P laparoscopic cholecystectomy 11/21/[address] Macdonald -On IV cefepime and IV Flagyl (day 3) -Afebrile, WBC 14K (4) Sepsis: -Resuscitated, resolved (5) E coli bacteremia: -2/4 blood cultures growing gram-negative bacilli/E. coli -Continue IV cefepime and IV Flagyl while awaiting sensitivities -Repeat blood cultures today (6) UTI (urinary tract infection): -Urine culture growing pansensitive E. coli -On IV cefepime as above (7) Atrial flutter with rapid ventricular response: (8) NSVT (nonsustained ventricular tachycardia): -11/21/2020: Telemetry revealed episodes of SVT overnight, 0756: 25 beat run of V. tach, 0801: 7 beat run of V. tach and transitioned into A. fib with RVR -Cardiology consulted -Received amiodarone bolus followed by drip -Started on IV heparin (discussed with general surgery) -Continue metoprolol -Possible precipitating factors: Sepsis, acute cholecystitis, ascending cholangitis, bacteremia, untreated LUZ MARIA, hypoxia / concern for PE -echo (9) Hypoxia: -On admission, patient hypoxic on room air at 80% -Currently requiring 4 L of oxygen via oxygen mask -CT chest without contrast on admission unrevealing of cause -History of pulmonary embolism anticoagulated on Coumadin, INR 1.5 on presentation. Initially unable to do CTA chest due to SHAYNE and anticoagulation was held due to procedures. BL LE Dopplers negative for DVT. -Given ongoing hypoxia and arrhythmia, CTA chest was performed (renal function improved) - Negative for pulmonary embolism. (10) SHAYNE (acute kidney injury): -Resolved -Creatinine 1.7 on presentation (baseline ~ 0.9). Creatinine 1.0 today -Likely prerenal due to sepsis -Continue IVF, follow renal functions -Continue to hold lisinopril (11) Left anterior fascicular block: (12) Elevated troponin: -Troponin 0.067 -> 0.06 -> 0.03 -Likely due to demand ischemia in the setting of sepsis -EKG on admission showed a left anterior fascicular block. Appeared to be new given no recent EKGs for comparison -No reports of chest pain (13) Lymphedema, not elsewhere classified: -Managed with diuretics, which were held on admission due to SHAYNE and sepsis -Continue to hold diuretics for now (14) History of pulmonary embolism: -Anticoagulation as mentioned above (15) History of paroxysmal atrial tachycardia: (16) History of paroxysmal supraventricular tachycardia: -Continue metoprolol (17) DM type 2 (diabetes mellitus, type 2): -Hgb A1c 6.8 05/2020 -Lantus/NovoLog -Glycemic pharmacy consult (18) HTN (hypertension): -Lisinopril held on admission due to hypotension/SHAYNE. SHAYNE has improved however BP remains borderline, continue lisinopril -Continue metoprolol as BP allows due to history of PAT and NSVT and now A. fib with RVR and NSVT (19) History of breast cancer: -History of breast cancer s/p left mastectomy -CT chest showing A few small right breast nodules measure up to 13 mm. Nonemergent mammogram follow-up recommended (20) LUZ MARIA (obstructive sleep apnea): -Noncompliant with CPAP -Encouraged follow-up with sleep medicine (21) DVT prophylaxis: -On IV heparin Admission and Anticipated Discharge Date Admission Date: November 19, 2020 Supervising Physician Co-Signing Physician Notes Pt seen and examined by me, care coordinated w/ OSCAR De Souza, pls refer to her note above for further detail. This AM pt had episode of ~20 beat VT -> Afib w/ RVR, pt remained asymptomatic. Denied any chest pain, dizziness or lightheadedness, only reported some abd. pain at the surgical site. She appeared very tired and weak but able to answer questions appropriately and w/o difficulty. Cardiology was consulted and pt was started on IV amiodarone and IV heparin (anticoagulation was also discussed w/ surgeon Dr. Macdonald). CT PE was performed and PE was ruled out. Pt remained hypoxic though since the admission though, currently on 4L of suppl. O2. Blood cultx positive for E.coli. Ucltx posit. for E. coli, pansensitive. Late in the afternoon/ evening pt appeared more somnolent, she was able to move extremities and follow simple commands however appeared more weak and she could hardly answer questions. Her HR was controlled at 77, SBP was 103 at the bedside however it's been running on lower side throughout the day. She was satting in high 90s on 4L of suppl. O2. Stat ABG was ordered as well as CXR, CBC, CMP, lactate. ABG showing pH 7.26 and pCO2 58, BiPAP ordered immediately and automation engineering technician contacted. Discussed case with the railroad worker physician as well and updated pt's over the phone. Anabell Lee MD Subjective Patient seen and examined. Somewhat lethargic however arouses easily to verbal stimuli. Reports abdominal pain. No nausea, tolerated clear liquid breakfast. Having palpitations however denies chest pain or shortness of breath. No lightheadedness or dizziness. Review of Systems Review of Systems: All systems reviewed & are unremarkable except as noted in HPI & below Constitutional: + fatigue and + weakness (generalized); no fever and no chills Respiratory: + dyspnea; no cough Cardiovascular: no chest pain Gastrointestinal: + abdominal pain (some discomfort at the surgical site); no vomiting Physical Exam Constitutional: + obese and + lethargic (Arouses easily to verbal stimuli); no acute distress Respiratory: normal respiratory effort; no respiratory distress Auscultation: + diminished lung sounds Cardiovascular: Rate/Rhythm: + tachycardic and + irregularly irregular Vessels: normal peripheral pulses Extremities: + edema (+3 BLE) Gastrointestinal (Abdomen): Inspection/Auscultation: normal bowel sounds and + abdominal surgical drain present (RUQ, draining serosanguineous drainage) Percussion/Palpation: + abdomen tender (Incisional, RUQ) and abdomen soft Musculoskeletal: Generally weak Neurologic: No gross focal deficit Psychiatric: Orientation: oriented x 3 Results & Data Results & Data ([facility]) Vital Signs (Past 12 Hours) Vital Signs Temp Pulse Resp BP Pulse Ox Pulse Ox 11/21/20 10:41 36.6 C 72 18 89/56 L 93 11/21/20 10:00 36.6 C 78 18 90/67 L 92 11/21/20 09:32 36.6 C 74 18 85/56 L 91 11/21/20 09:00 36.6 C 111 H 18 90/67 L 94 11/21/20 08:24 36.9 C 105 H 24 81/43 L 92 11/21/20 07:00 91 11/21/20 03:57 37.0 C 82 21 95/61 L 94 11/20/20 23:35 37.6 C H 96 H 19 110/80 92 Laboratory Results Short CBC 11/21/20 Range/Units 05:35 WBC 14.46 H (4.8-10.8) K/uL Hgb 11.4 L (12.0-16.0) g/dL Hct 37.5 (37-47) % Plt Count 217 (130-400) K/uL BMP 11/21/20 11/21/20 05:35 07:07 Sodium 141 Potassium 4.6 Chloride 111 H Carbon Dioxide 26 BUN 44 H Creatinine 1.08 Glucose 144 H Calcium 7.9 L Liver Function 11/21/20 11/21/20 Range/Units 05:35 07:07 Total Bilirubin 0.5 (0.2-1) mg/dl AST 24 (15-37) U/L ALT 12 (12-78) U/L Alkaline Phosphatase 71 (45-117) U/L Albumin 1.7 L (3.4-5.0) gm/dl Microbiology 11/19/20 13:25 Aerobic Blood Culture - Preliminary Blood Gram negative bacilli Anaerobic Blood Culture - Preliminary Escherichia coli 11/19/20 14:42 Urine Culture - Preliminary Urine,Straight Cath Escherichia coli 11/19/20 14:51 Aerobic Blood Culture - Preliminary Blood No growth in Aerobic bottle after 24 hours. Anaerobic Blood Culture - Final (1) Sepsis Sepsis acute organ dysfunction status: unspecified Sepsis type: sepsis due to unspecified organism Qualified Code(s): A41.9 - Sepsis, unspecified organism
--- NOTE | 2020-11-21 11:45 | CT Scan Report ---
CT angio chest PE protocol CT DOSE: 679.85 mGy.cm HISTORY: 80 years-old Female with PE. Acute shortness breath with lower extremity swelling. TECHNIQUE: Multiple CTA images of the chest were obtained after the intravenous administration of 119 ml Optiray 320. Coronal and sagittal MIPS were obtained from the axial data set and were submitted for review. All measurements were obtained according to NASCET criteria. A dose lowering technique w as utilized adhering to the principles of ALARA. COMPARISON: Chest CT 11/19/2020 FINDINGS: CTA: Moderate cardiomegaly. There is no pericardial effusion. Moderate coronary artery calcifications. Fus iform dilation of the ascending thoracic aorta redemonstrated, 4.0 cm. Mild to moderate calcific plaq ue of the thoracic aorta. There is patency of the imaged great vessels. Reflux of contrast into the I VC and hepatic veins. Pulmonary arterial tree is opacified to the level the subsegmental branches. Th e segmental and subsegmental branches however are suboptimally dilated secondary to respiratory motio n artifact. No filling defects identified to suggest thromboembolic disease. CT CHEST: Unremarkable thyroid. Prominent paratracheal and hilar lymph nodes measure up to 9 mm which are likel y reactive. Interval development of trace left and small right pleural effusions. No pneumothorax. In tralobular septal thickening is noted with mixed bilateral groundglass densities. Dependent predomina nt consolidation of the lung bases. Mild tracheobronchial secretions. 3.3 cm hypodense lesion of the posterior superior spleen redemonstrated. Partially imaged subcentimet er nodular foci of the right breast redemonstrated. Degenerative changes of the spine and shoulders. There are a few healed remote right-sided rib fractures. IMPRESSION: 1. Limited exam as above without evidence of pulmonary emboli. 2. Cardiomegaly with interval development of pulmonary edema, trace left and small right pleural effu sions. 3. Dependent and bibasilar predominant linear consolidative opacities favor atelectasis with pneumoni a considered less likely. 4. Indeterminate 3.3 cm splenic lesion. 5. Partially imaged subcentimeter nodular foci of the right breast. Follow-up mammogram recommended. ACT 112: Negative or not required by law. The above report was generated using voice recognition software. It may contain grammatical, syntax o r spelling errors. Electronically signed by: Issac Miguel M.D. 11/21/2020 11:43 AM
--- NOTE | 2020-11-21 12:11 | Electrocardiogram Report ---
Test Reason : Blood Pressure : / mmHG Vent. Rate : 136 BPM Atrial Rate : 127 BPM P-R Int : 000 ms QRS Dur : 108 ms QT Int : 318 ms P-R-T Axes : 000 -50 077 degrees QTc Int : 478 ms Atrial fibrillation with rapid ventricular response Left anterior fascicular block Moderate voltage criteria for LVH, may be normal variant Cannot rule out Septal infarct , age undetermined Abnormal ECG When compared with ECG of 19-NOV-2020 14:23, Atrial fibrillation has replaced Sinus rhythm Minimal criteria for Septal infarct are now Present Confirmed by Vikram Aguirre ([id number]) on 11/21/2020 12:10:50 PM Referred By: REFERRED SELF Confirmed By:Vikram Aguirre
--- NOTE | 2020-11-21 12:46 | Pharmacy Report ---
Glycemic Control Progress Note - Date of Service November 21, 2020 - Scope Glycemic Pharmacist consulted for glycemic control to write orders per [facility] inpatient glycemic control protocol. - Objective Accuchecks BSG(last 24 hours):: 11/20/20 11/20/20 11/20/20 14:14 16:25 20:33 Glucose POC Glucose 224 H 247 H 153 H 11/21/20 11/21/20 11/21/20 05:35 07:10 11:35 Glucose 144 H POC Glucose 144 H 270 H HbA1c:: Hemoglobin A1c 7.4 % (4.5-5.6) H 11/20/20 05:41 - Recent Pertinent Medications The patient is currently receiving: * Basal insulin: Lantus 40 units every 24 hours * Correctional Insulin: Novolog Correction per scale ACHS Goal Range: Low 110 mg/dL - High 140 mg/dL Correction Factor: 20 mg/dL/unit * Prandial insulin: Per carb ratio of 1 unit per 6 grams CHO consumed - Outpatient Anti-Diabetic Meds Glipizide 5 mg BID Lantus 40 units qAM + 42 units qPM - Assessment & Plan ASSESSMENT: * See progress note from 11/20/20 for more background info, in short: * Pt receiving SQ basal bolus insulin regimen for hyperglycemia secondary to baseline DM (outpatient regimen on hold),stress/infection (E coli bacteremia). * Patient is currently receiving an average of 53 units of insulin per day * 40 units of basal insulin * 13 units of prandial/correctional insulin * BSGs ranging 153 - 254 mg/dl over the past 24hrs * Changes needed to insulin regimen: * AM Fasting BSG = 144 mg/dl. This is in goal range for patient based on inpatient targets and co-morbidities. It appears that patient's true basal needs may be closer to 50 units so will increase Lantus to 50 units. * Post-prandial BSGs trended downwards yesterday with NPO status. Lunch BSG today was elevated but may have been secondary to stress from this morning. Tighten CR slightly. * Total daily dose is TBD now that patient is eating. PLAN FOR INPATIENT GLYCEMIC CONTROL: * INCREASING Lantus to 50 units SQ daily with dinner * TIGHTENING correction factor to 18 mg/dl/unit * TIGHTENING carb ratio to 1 unit per 5 grams CHO consumed * Continuing goal range of Low 110 mg/dL - High 140 mg/dL RECOMMENDATIONS FOR DISCHARGE: * Patient's HbA1C is reasonable given her age and comorbidities. * A tighter goal would be HbA1C of ~7% while hers is currently 7.4%. * Would recommend discussing insulin coverage with provider and consider addition of Novolog with largest meal of the day. * Recommend discontinuation of glipizide as when used in combination with Lantus has a higher rate of hypoglycemia. Thank you.
[2020-11-21] MEDS: cefTRIAXone SODIUM 2,000 MG in DEXTROSE 5% 50 ML IV SCH (14:02)
[2020-11-21] MEDS ORDERED: WARFARIN SOD 7.5 MG TAB PO SCH (16:00)
[2020-11-21 16:23] LABS: Partial Thromboplastin Ratio 3.4
[2020-11-21] MEDS: AMIODARONE / D5W 360 MG/200 ML BAG IV SCH ×2 (16:44→16:46)
[2020-11-21 17:03] LABS: Partial Thromboplastin Time 95.3 Seconds (21.0-31.0)
[2020-11-21] MEDS: INSULIN GLARGINE SOLOSTAR 100 UNITS/ML 3 ML PEN SC SCH (17:14)
[2020-11-21 19:05] LABS: Base Excess ABG -2.5 mEq/L (-9-1.8); HCO3 ABG 25 mmol/L (19-24); Oxygen Saturation ABG 95.6 % (90-95); PCO2 ABG 58 mmHg (35-46); PO2 ABG 86 mmHg (80-95); pH ABG 7.26 (7.35-7.45)
[2020-11-21 19:07] LABS: Allen Test POS (Pos)
--- NOTE | 2020-11-21 19:17 | XRay Report ---
XR chest 1V portable CLINICAL HISTORY: Shortness of breath. Follow-up study. COMPARISON STUDY: 11/19/2020 FINDINGS: The heart is enlarged. There is progressive interstitial thickening with suspected subtle b ilateral airspace opacities. There are small pleural effusions.[ IMPRESSION: 1. Cardiomegaly, progressive interstitial thickening, and suspected subtle bilateral airspace opaciti es. While likely representing pulmonary edema, an interstitial infectious/inflammatory processes coul d appear similar. Clinical and radiographic follow-up is recommended. ACT 112: Negative or not required by law. Electronically signed by: Jasper Bennett M.D. 11/21/2020 7:16 PM
[2020-11-21 19:27] LABS: Hematocrit (blood only) 37.4 % (37-47); Hemoglobin 11.2 g/dL (12.0-16.0); Mean Corpuscular Hemoglobin 27.8 pg (25-34); Mean Corpuscular Hgb Conc 29.9 g/dL (32-36); Mean Corpuscular Volume 92.8 fL (80-100); Mean Platelet Volume 11.6 fL (7.4-10.4); Platelet Count 255 K/uL (130-400); RDW Coefficient of Variation 16.2 % (11.5-14.5); RDW Standard Deviation 55.7 fL (36.4-46.3); Red Blood Count 4.03 M/uL (4.2-5.4); White Blood Count 13.93 K/uL (4.8-10.8)
[2020-11-21 20:06] LABS: Albumin Globulin Ratio 0.3 (0.9-2); Albumin Level 1.6 gm/dl (3.4-5.0); BUN Creatinine Ratio 34.6 (10-20); Bilirubin,Total 0.3 mg/dl (0.2-1); Calcium 7.5 mg/dl (8.5-10.1); Creatinine Clr Calc Pharmacy 50.2 ml/min; Est GFR (African American) 49.6; Est GFR (Non-African American) 42.8; Globulin 4.7 gm/dl (2.5-4.0); Potassium 4.5 mmol/L (3.5-5.1); Total Protein 6.3 gm/dl (6.4-8.2)
[2020-11-21 20:18] LABS: Beta-Hydroxybutyrate 1.02 mg/dl (0.2-2.81)
[2020-11-21] MEDS ORDERED: NOREPINEPHRINE/D5W 8 MG/508 ML BAG IV SCH (20:30)
[2020-11-21] MEDS ORDERED: SODIUM CHLORIDE 0.9% 1000ML 1,000 ML IV ONE (21:15)
--- NOTE | 2020-11-21 21:17 | Critical Care Consultation ---
Date of Consultation November 21, 2020 Assessment & Plan (1) Admitted to intensive care unit: Reason Critically Ill: 80-year-old female with acute hypoxic respiratory failure in the setting of altered mental status with underlying LUZ MARIA requiring close monitoring for possible need for emergent endotracheal intubation. NEURO - * CAM ICU: POSITIVE * Altered mental status: * Multifactorial in the setting of acute of illness, respiratory acidosis, recent surgical intervention. * Will image brain as patient currently on heparin. * No focal neurological deficits. * No other significant electrolyte derangements appreciated. CARDIAC/VASCULAR - * Atrial flutter: * Responded well to amiodarone. * Continue amiodarone drip per cardiology recommendations. * Continue with heparin drip. * Hold home antihypertensives as patient has been with borderline hypotension most of the night. * Has not required vasopressors. * Will continue with albumin this patient is 48 hours post surgical intervention and is likely with ongoing fluid shifting. * Monitor on telemetry. RESPIRATORY - * Acute hypoxic respiratory failure with hypoxia and hypercapnia: * Likely secondary to altered mental status as well as underlying LUZ MARIA. * Continue with aggressive noninvasive ventilatory techniques at this time. * Monitor ABG and patient cognitive status for possible need for intubation. * Will image chest as patient with history of PE. We will do this in conjunction with the need for evaluation of patient's abdomen/pelvis in the setting of recent surgical intervention and change mental status. GI/NUTRITION - * Ascending cholangitis with choledocholithiasis status post ERCP and laparoscopic cholecystectomy: * Continues with serosanguineous output from YURI drain. * Agree with antibiotic coverage including anaerobic coverage. * Continue with IV fluids as patient is clinically volume depleted. * Will add albumin as patient is with hypoalbuminemia which is likely worsening fluid balance status post surgical intervention. RENAL/LYTES - * SHAYNE on presentation -resolved * No significant electrolyte derangements at this time. * IVF: Normosol at 100 mL's per hour. - * Villarreal in place - Strict I&Os. ENDO - * DMII * BSGs per unit protocol. ISS --> gtt per unit policy. HEME - * Stable H&H ID - * Ascending cholangitis, choledocholithiasis, gangrenous gallbladder: * Source control status post surgical intervention. * Continue with current antibiotic coverage. * Pro-Drake trending down. LINES/IV ACCESS - * PIVs x3 * Villarreal catheter * YURI drain DVT PROPHYLAXIS - * Heparin drip * SCDs I have personally spent 65 minutes of critical care time in the direct management of this patient. This is a life/limb threatening event. This includes time spent evaluating patient, direct bedside care, chart review, placing orders, interpretation of diagnostic studies, discussion with consultants, patient, and family members, as well as other required patient management activities. This time is exclusive of all separately billable procedures, and teaching time and separate from and in addition to any other critical care service time. Thank you for allowing us to participate in the care of this patient. Please refer to my attending physician's documentation for any further recommendations. (2) Respiratory acidosis: (3) Respiratory failure: (4) AMS (altered mental status): (5) LUZ AMRIA (obstructive sleep apnea): (6) Choledocholithiasis: (7) Ascending cholangitis: (8) E coli bacteremia: (9) Atrial flutter with rapid ventricular response: (10) HTN (hypertension): Supervising Physician Co-Signing Physician Notes I have personally evaluated and examined this patient. I agree with assessment and plan of Amy Cervantes PA-C. During my evaluation the patient was alert and oriented x3. I believe she was over narcotize and still recovering from general anesthesia and this is potentiated from untreated obstructive sleep apnea. I have adjusted the BiPAP protocol, she has an IPAP of 16 EPAP at 10 and she should wear this whenever sleeping at night or napping. Given her improvements and normal CT of the head I feel she is appropriate for downgrade out of the ICU at this time. Critical care will sign off at this time. History of Present Illness Attending Physician: Greyson Lee MD History of Present Illness Patient is a 80-year-old female with a significant past medical history of lymphedema, diabetes, history of PE, hypertension, aortic stenosis. She was admitted to this institution on 11/19 with complaints of abdominal pain. Patient was found to have ascending cholangitis with choledocholithiasis. The patient underwent ERCP with stenting on 11/19. She subsequently underwent laparoscopic cholecystectomy on 11/20 with findings consistent with gangrenous cholecystitis. Postoperatively, the patient has been doing well up until today. She developed a atrial flutter with variable AV block which responded to amiodarone bolus followed by drip. Unfortunately, the patient has been relatively hypoxic postoperatively. Patient had become less responsive and developed a respiratory acidosis which prompted consultation. Upon evaluation at bedside, the patient is somnolent. She awakens with stimuli, but provides no significant historical information otherwise. Allergies Allergy/AdvReac Type Severity Reaction Status Date / Time rosiglitazone Allergy Mild UNKNOWN-RELATED Verified 11/19/20 16:08 POSS TO DVT/PE PER MEDICAL RECORD acetaminophen Allergy Unknown HIVES Verified 11/19/20 16:08 latex Allergy Unknown "Tape Verified 11/19/20 16:08 causes redness" Penicillins Allergy Unknown SOB Unverified 11/19/20 16:08 ,THROAT SHUT,COULDN'T BREATHE tramadol Allergy Unknown UNKNOWN Verified 11/19/20 16:08 Home Medications Medication Instructions Recorded Confirmed Type anastrozole 1 mg tablet 1 mg PO DAILY 06/12/20 11/19/20 History clindamycin phosphate 1 % topical 1 appln TOP BID 06/12/20 11/19/20 History gel cyanocobalamin (vitamin B-12) 1,000 mcg PO DAILY 06/12/20 11/19/20 History 1,000 mcg tablet cyclobenzaprine 10 mg tablet 10 mg PO BID tab 06/12/20 11/19/20 History fluticasone propionate 50 2 sprays INTNAS DAILY 06/12/20 11/19/20 History mcg/actuation nasal spray,suspension furosemide 40 mg tablet 40 mg PO TUTHSA 06/12/20 11/19/20 History glipizide 5 mg tablet 5 mg PO BID 06/12/20 11/19/20 History insulin glargine 100 unit/mL 40 units SQ QAM 06/12/20 11/19/20 History subcutaneous solution insulin glargine 100 unit/mL 42 units SQ QPM ml 06/12/20 11/19/20 History subcutaneous solution lisinopril 10 mg tablet 10 mg PO DAILY 06/12/20 11/19/20 History metformin 1,000 mg tablet 1,000 mg PO BID 06/12/20 11/19/20 History metoprolol tartrate 100 mg tablet 100 mg PO BID 06/12/20 11/19/20 History potassium chloride 20 mEq 40 meq PO SUMOWEFR 06/12/20 11/19/20 History tablet,extended release pregabalin 200 mg capsule 200 mg PO BID 06/12/20 11/19/20 History acetaminophen [Tylenol] 325 mg PO Q4 PRN 11/19/20 11/19/20 History cholecalciferol (vitamin D3) 50 mcg PO Q2D 11/19/20 11/19/20 History cholecalciferol (vitamin D3) 25 mcg PO Q2D 11/19/20 11/19/20 History [Vitamin D3] furosemide [Lasix] 80 mg PO SUMOWEFR 11/19/20 11/19/20 History meclizine 25 mg PO TID PRN 11/19/20 11/19/20 History potassium chloride 20 meq PO TUTHSA 11/19/20 11/19/20 History turmeric root extract 500 mg PO DAILY 11/19/20 11/19/20 History warfarin 5 mg PO SUTUWETHSA 11/19/20 11/19/20 History warfarin 7.5 mg PO MOFR 11/19/20 11/19/20 History Patient History Medical History Atrial paroxysmal tachycardia Chronic venous insufficiency Diabetes mellitus with neuropathy DM type 2 (diabetes mellitus, type 2) Esophagitis, reflux Essential (primary) hypertension Generalized OA History of paroxysmal atrial tachycardia History of paroxysmal supraventricular tachycardia History of pulmonary embolism HTN (hypertension) [facility] (current) use of 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 Lymphedema, not elsewhere classified Malignant neoplasm of upper-outer quadrant of left female breast Moderate aortic stenosis Morbid (severe) obesity due to excess calories Obstructive sleep apnea (adult) (pediatric) PAD (peripheral artery disease) Vitamin D insufficiency Surgical History H/O left mastectomy Previous back surgery S/P hysterectomy S/P right rotator cuff repair Family History Other Family history non-contributory Social History Smoking Status: Never smoker Hx Alcohol Use: No Hx Substance Use: No Preferred Language: Mauritian Communication Ability: Effective Visual Impairment: Limited Hearing Ability: Normal 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 GENERAL - 80-year-old female appearing her stated age who is in mild distress. SKIN - Without rashes. HEAD - NC/AT. EYES - PERRL with EOMI bilaterally. Sclera anicteric. EARS - No deformities of external structures noted on gross examination bilaterally. NOSE - Midline and without cyanosis. No epistaxis or purulent drainage noted. MOUTH/OROPHARYNX - Without perioral cyanosis. Buccal mucosa dry. NECK - Neck with FROM. Supple to palpation. No nuchal rigidity. LUNGS - Chest wall symmetric without accessory muscle use. Diminished breath sounds at the bilateral bases. CARDIAC - RRR with S1/S2. No murmur, rubs, or gallops appreciated. ABDOMEN - Abdominal contour obese without pulsations or visible masses. BS normoactive all four quadrants. Mild TTP in the RUQ. Dressings/incision sites clean, dry, and intact. EXTREMITIES - No clubbing or peripheral cyanosis. +3/5 radial and dorsalis pedis pulses palpated throughout. NEUROLOGIC - Cranial nerves II through XII grossly intact. No focal deficits noted. PSYCH - Somnolent. Results & Data Results & Data ([facility]) Vital Signs (Past 12 Hours) Vital Signs Temp Pulse Pulse Resp BP Pulse Ox 11/21/20 19:45 73 26 H 96 11/21/20 19:38 78 24 114/74 89 L 11/21/20 15:41 37.6 C H 68 18 89/60 L 93 11/21/20 11:37 36.8 C 79 20 92/59 L 90 11/21/20 10:41 36.6 C 72 18 89/56 L 93 11/21/20 10:00 36.6 C 78 18 90/67 L 92 11/21/20 09:32 36.6 C 74 18 85/56 L 91 Coding Level of Care Code Critical Care 1st 30-74 mins Diagnoses Admitted to intensive care unit Z78.9 Respiratory acidosis E87.2 Respiratory failure J96.90 AMS (altered mental status) R41.82 LUZ MARIA (obstructive sleep apnea) G47.33 Choledocholithiasis K80.50 Ascending cholangitis K83.09 E coli bacteremia R78.81; B96.20 Atrial flutter with rapid ventricular response I48.92 HTN (hypertension) I10 Time Spent (min) 65
--- NOTE | 2020-11-21 21:17 | Procedure Note ---
Procedure Note Date of Service November 21, 2020 Procedure: Arterial Line Placement Attending: Dr. Smith APC: Dagoberto Cervantes PA-C Indication: Monitoring on Pressors Anesthesia: Lidocaine 1% Verbal consent implied in the setting of deteriorating status and need for close hemodynamic monitoring in the hemodynamically unstable patient with concern for possible need for emergent endotracheal intubation. A time-out was completed verifying correct patient, procedure, site, positioning, and implant(s) or special equipment if applicable. Allens test was performed to ensure adequate perfusion. Patients LEFT wrist was prepped and draped in the usual sterile fashion. Ultrasound guidance was used to aid needle placement. A 20g Arrow arterial line was introduced into the LEFT Radial artery. Catheter was threaded, and the needle was removed with appropriate blood return. Good waveform was observed. The patient tolerated the procedure well. Confirmation of placement with ultrasound. Blood Loss: Minimal Complications: None Procedural Ultrasound Guidance: Procedure Date: 11/21/2020 Indication: ABGs, Pressors, Poor peripheral NIBP monitoring Attending: Dr. Smith APC: Dagoberto Cervantes PA-C Artery Identified: YES Line confirmed in Artery with ultrasound: YES Complications: NONE Patient tolerated procedure: WELL Coding CPT Codes Tubes, Drains, and Vasc Access - Tubes, Drains, and Vasc Access: [id number] Place Catheter In Artery ([id number]) [facility] [place] Procedure Codes (Charges) Tubes, Drains, and Vasc Access Procedure 1: Tubes, Drains, and Vasc Access: [id number] Place Catheter In Artery
[2020-11-21] MEDS ORDERED: ALBUMIN 25% 12.5 GM/50 ML VIAL IV ONE (21:24)
--- NOTE | 2020-11-22 00:45 | Procedure Note ---
Procedure Note Date of Service November 22, 2020 Procedure: Residential Indwelling Peripherally Inserted IV Catheter Placement Attending: Dr. Smith APC: Dagoberto Cervantes PA-C Indication: Need for IV Access, Poor Vascular Access Anesthesia: None Verbal consent was obtained from patient prior to performing the procedure. A time-out was completed verifying correct patient, procedure, site, positioning, and implant(s) or special equipment if applicable. Utilizing bedside ultrasound, vascularity of the RIGHT upper extremity was assessed. Vessel size was noted for appropriate catheter selection and skin was marked with gentle pressure. Patients RIGHT upper extremity was prepped and draped in the usual sterile fashion utilizing chlorhexidine. Ultrasound guidance was used to aid needle placement. A 22 g Endurance Catheter was introduced into the RIGHT forearm vein under direct ultrasound guidance. Guide wire was easily deployed without resistance. Catheter was threaded over the guide wire without resistance and the entire apparatus was removed intact. Good venous blood return was noted in the catheter. The IV catheter was easily flushed with sterile saline flush. Sterile clave was attached to the end of the catheter and good blood return was again noted. Tourniquet was released. StatLock device and sterile dressing were applied. The patient tolerated the procedure well. Blood Loss: Minimal Complications: None Procedural Ultrasound Guidance: Procedure Date: 11/22/2020 Indication: Poor Vascular Access Attending: Dr. Smith APC: Dagoberto Cervantes PA-C Artery/Veins Identified: YES Access confirmed in Vein with ultrasound: YES Complications: NONE Patient tolerated procedure: WELL Coding CPT Codes Tubes, Drains, and Vasc Access - Tubes, Drains, and Vasc Access: [id number] Venipuncture, Age 5/>Req phys skill, (sep proc), Dx/Tx (not rtn) ([id number]) [facility] [place] Procedure Codes (Charges) Tubes, Drains, and Vasc Access Procedure 2: Tubes, Drains, and Vasc Access: [id number] Venipuncture, Age 5/>Req phys skill, (sep proc), Dx/Tx (not rtn)
[2020-11-22] MEDS: NORMOSOL-R 1,000 ML IV SCH ×3 (01:38→20:07)
[2020-11-22] MEDS: metroNIDAZOLE 500 MG/100 ML BAG IV SCH ×4 (01:38→23:47)
[2020-11-22 02:15] LABS: Hematocrit (blood only) 36.9 % (37-47); Mean Corpuscular Hemoglobin 27.5 pg (25-34); Mean Corpuscular Hgb Conc 29.8 g/dL (32-36); Mean Corpuscular Volume 92.3 fL (80-100); Mean Platelet Volume 11.5 fL (7.4-10.4); Platelet Count 221 K/uL (130-400); RDW Coefficient of Variation 16.1 % (11.5-14.5); RDW Standard Deviation 54.4 fL (36.4-46.3); White Blood Count 12.57 K/uL (4.8-10.8)
[2020-11-22 02:25] LABS: Partial Thromboplastin Ratio 1.5; Partial Thromboplastin Time 40.7 Seconds (21.0-31.0)
[2020-11-22 02:44] LABS: Albumin Globulin Ratio 0.4 (0.9-2); Albumin Level 1.8 gm/dl (3.4-5.0); BUN Creatinine Ratio 42.9 (10-20); Bilirubin,Total 0.3 mg/dl (0.2-1); Calcium 7.6 mg/dl (8.5-10.1); Creatinine Clr Calc Pharmacy 68.3 ml/min; Est GFR (African American) 71.9; Est GFR (Non-African American) 62.1; Globulin 4.6 gm/dl (2.5-4.0); Magnesium 2.5 mg/dl (1.8-2.4); Phosphorus 1.7 mg/dl (2.5-4.9); Potassium 4.5 mmol/L (3.5-5.1); Total Protein 6.4 gm/dl (6.4-8.2)
[2020-11-22 03:51] LABS: iSTAT Arterial Blood Gas HCO3 25 meg/L (19-24); iSTAT Arterial Blood Gas pCO2 61 mmHg (35-46); iSTAT Arterial Blood Gas pH 7.22 (7.35-7.45); iSTAT Arterial Blood Gas pO2 87 mmHg (80-95); iSTAT Carbon Dioxide 27 mmol/L (24-31); iSTAT FiO2 35 %; iSTAT Site Art Line
[2020-11-22] MEDS: AMIODARONE / D5W 360 MG/200 ML BAG IV SCH ×2 (04:47→17:09)
[2020-11-22] MEDS: HEPARIN SODIUM/DEXTROSE 25,000 UNITS/500 ML BAG IV SCH ×2 (04:48→21:19)
[2020-11-22] MEDS: ALBUMIN 25% 12.5 GM/50 ML VIAL IV SCH ×4 (05:01→20:35)
--- NOTE | 2020-11-22 07:18 | CT Scan Report ---
CT head/brain wo con CLINICAL HISTORY: Acute change in mental status COMPARISON STUDY: No previous studies for comparison. TECHNIQUE: Axial CT of the brain is performed from the vertex to the skull base. IV contrast was not administered for this examination. A dose lowering technique was utilized adhering to the principles of ALARA. CT DOSE: FINDINGS: No intra or extra-axial mass lesions are visualized. There is no CT evidence of acute cortical infarc tion. There is no evidence of midline shift. There is no acute hemorrhage. No calvarial fractures ar e visualized. There are moderate white matter hypodensities likely on a small vessel basis. There is a small calcif ication within the right cali and left basal ganglia. There is no evidence of pathologic ventricular dilatation. There is no evidence of acute sinusitis IMPRESSION: No acute intracranial findings ACT 112: Negative or not required by law. Electronically signed by: Jasper Bennett M.D. 11/22/2020 7:16 AM
[2020-11-22] MEDS ORDERED: Nursing to Pharmacy Communication SCH (07:30)
--- NOTE | 2020-11-22 08:01 | CT Scan Report ---
CT abd pelvis IV con only CLINICAL HISTORY: Hypotension, hypoxia. Recent laparoscopic of the cystectomy. COMPARISON STUDY: 11/19/2020 TECHNIQUE: Patient was scanned in a dynamic helical fashion during intravenous administration of 1 18 cc of Optiray 320 A dose lowering technique was utilized adhering to the principles of ALARA. CT DOSE: 3702.81 mGy.cm FINDINGS: Lower chest: The heart is enlarged. There are coronary artery calcifications. There are small bilater al pleural effusions with lower lobe atelectasis/consolidation Liver: There is been interval placement of a biliary enteric stent. There is pneumobilia. No focal he patic masses are visualized. There is a perihepatic drain present. Gallbladder: By history the patient is status post a prior cholecystectomy. Significant residual gall bladder is visualized. There is fluid outside the gallbladder lumen with air. Diagnostic consideratio ns include abscess, or perforated gallbladder remnant with gas from the patient's biliary stent. Ther e is a right upper quadrant surgical drain. Spleen: There is a 26 mm hypodense splenic lesion, similar to the prior study. Pancreas: There is a pancreatic stent. There is no pancreatic ductal dilatation. No pancreatic masses are visualized. Adrenal glands: Unremarkable. Kidneys: There is symmetric renal cortical enhancement. The kidneys are normal in size without hydron ephrosis. Bowel: There is gastric antral and duodenal wall thickening. There are no transition zones to indicat e bowel obstruction. There is no evidence of acute diverticulitis. There is no evidence of acute appe ndicitis. Peritoneum: There is a small amount of extraluminal gas adjacent to the gallbladder fossa. There is n o significant ascites. Vasculature: The abdominal aorta is normal in course and caliber. Adenopathy: None. Pelvic viscera: The uterus is surgically absent. There is an indwelling Villarreal catheter. Skeletal structures: There is a suspected oblique L2 vertebral body fracture. This is not visualized the prior study. IMPRESSION: 1. Interval development of bilateral pleural effusions with bilateral lower lobe atelectasis/consolid ation 2. Reportedly interval cholecystectomy. Significant residual gallbladder is visualized. There is gas and fluid outside the gallbladder lumen. Diagnostic considerations include abscess, versus perforated remnant gallbladder with gas introduced from the biliary enteric stent 3. Interval placement of a biliary enteric stent and pancreatic stent 4. Gastric antral and duodenal wall thickening 5. No evidence of bowel obstruction 6. Oblique L2 vertebral body fracture, finding not visualized in the prior study 7. Right upper quadrant surgical drain. ACT 112: Negative or not required by law. Electronically signed by: Jasper Bennett M.D. 11/22/2020 7:59 AM
[2020-11-22] MEDS: METOPROLOL TARTRATE 100 MG TAB PO SCH ×2 (08:05→20:35)
[2020-11-22] MEDS: CYANOCOBALAMIN 500 MCG TABLET (VITAMIN B-12) PO SCH (08:06)
[2020-11-22] MEDS: PREGABALIN 100 MG CAP PO SCH (08:07)
[2020-11-22] MEDS: INSULIN ASPART 100 UNITS/ML 3 ML PEN SC SCH ×3 (08:27→20:22)
[2020-11-22] MEDS ORDERED: SODIUM PHOSPHATE 3 MMOL/1 ML INFUSION IV STA (08:31)
--- NOTE | 2020-11-22 08:35 | Hospitalist Progress Note ---
Date of Service November 22, 2020 Assessment & Plan (1) Choledocholithiasis: (2) Ascending cholangitis: (3) Acute cholecystitis: -Patient presenting from home with reports of epigastric abdominal pain x 5 days -In the ED, CT ABD/pelvis shows findings are consistent with acute cholecystitis and could represent early gangrenous change -Severe sepsis on presentation with fever, tachycardia, hypotension, WBC 22K, lactic acid 2.5. BP improved after IVF, repeat lactate 1.3 -ERCP 11/19/2020: + Choledocholithiasis, ascending cholangitis, stents placed -S/P laparoscopic cholecystectomy 11/21/[address] Macdonald -On IV cefepime and IV Flagyl (day 3) -> switched to IV ceftriaxone and flagyl (given cultx) -Afebrile, WBC 13K (4) Sepsis: -Resuscitated, resolved (5) E coli bacteremia: -2/ blood cultures growing gram-negative bacilli/E. coli -Continue IV ceftriaxone and IV Flagyl -Repeat blood cultures today (6) UTI (urinary tract infection): -Urine culture growing pansensitive E. coli -On IV cefepime , now ceftriaxone (7) Atrial flutter with rapid ventricular response: (8) NSVT (nonsustained ventricular tachycardia): -11/21/2020: Telemetry revealed episodes of SVT overnight, 0756: 25 beat run of V. tach, 0801: 7 beat run of V. tach and transitioned into A. fib with RVR -Cardiology consulted -Received amiodarone bolus followed by drip -Started on IV heparin (discussed with general surgery) -Continue metoprolol -Possible precipitating factors: Sepsis, acute cholecystitis, ascending cholangitis, bacteremia, untreated LUZ MARIA, hypoxia / concern for PE - CT PE negative -echo - Pt converted to NSR, plan to switch to PO amiodarone (9) Hypoxia: -On admission, patient hypoxic on room air at 80% -Currently requiring 4 L of oxygen via oxygen mask / BiPAP w/ naps and sleeping -CT chest without contrast on admission unrevealing of cause -History of pulmonary embolism anticoagulated on Coumadin, INR 1.5 on presentation. Initially unable to do CTA chest due to SHAYNE and anticoagulation was held due to procedures. BL LE Dopplers negative for DVT. -Given ongoing hypoxia and arrhythmia, CTA chest was performed (renal function improved) - Negative for pulmonary embolism. - Hypoxia and hypercarbia secondary Obesity hypoventilation syndrome after surgery and (untreated) LUZ MARIA (10) SHAYNE (acute kidney injury): -Resolved -Creatinine 1.7 on presentation (baseline ~ 0.9). Creatinine 1.0 today -Likely prerenal due to sepsis -Continue IVF, follow renal functions -Continue to hold lisinopril (11) Left anterior fascicular block: (12) Elevated troponin: -Troponin 0.067 -> 0.06 -> 0.03 -Likely due to demand ischemia in the setting of sepsis -EKG on admission showed a left anterior fascicular block. Appeared to be new given no recent EKGs for comparison -No reports of chest pain (13) Lymphedema, not elsewhere classified: -Managed with diuretics, which were held on admission due to SHAYNE and sepsis -Continue to hold diuretics for now (14) History of pulmonary embolism: -Anticoagulation as mentioned above (15) History of paroxysmal atrial tachycardia: (16) History of paroxysmal supraventricular tachycardia: -Continue metoprolol (17) DM type 2 (diabetes mellitus, type 2): -Hgb A1c 6.8 05/2020 -Lantus/NovoLog -Glycemic pharmacy consult (18) HTN (hypertension): -Lisinopril held on admission due to hypotension/SHAYNE. SHAYNE has improved however BP remains borderline, continue lisinopril -Continue metoprolol as BP allows due to history of PAT and NSVT and now A. fib with RVR and NSVT (19) History of breast cancer: -History of breast cancer s/p left mastectomy -CT chest showing A few small right breast nodules measure up to 13 mm. Nonemergent mammogram follow-up recommended (20) LUZ MARIA (obstructive sleep apnea): -Noncompliant with CPAP -Encouraged follow-up with sleep medicine (21) DVT prophylaxis: -On IV heparin Admission and Anticipated Discharge Date Admission Date: November 19, 2020 Subjective Pt seen in follow up of acute ascending cholengitis and acute cholecystitis, gram negat. bacteremia, Afib, acte hypoxic hypercarb. resp. failure 2/2 Obesity hypoventilation syndrome after surgery, LUZ MARIA Currently s/p lap. [place]. Converted to NSR. Seen in ICU, discussed w/ biochemical engineer, ok to downgrade to PCU, Needs bipap w/ napping. No chest pain. More alert and answering questions appropriately. Review of Systems Review of Systems: ROS per HPI, all other systems reviewed and negative Constitutional: + fatigue and + weakness (generalized); no fever and no chills Respiratory: + dyspnea; no cough Gastrointestinal: + abdominal pain (some discomfort at the surgical site); no vomiting Physical Exam Physical Exam: Constitutional: WD/WN, vitals as above + obese; no acute distress Eyes: PERRL, EOMI, conjunctivae normal, anicteric sclerae Neck: thick Respiratory: normal respiratory effort, lungs clear to auscultation, on 3L suppl. O2 Cardiovascular: Rate/Rhythm: regular rhythm and + mildly tachycardic Vessels: normal peripheral pulses Extremities: + edema (+2 edema BLE) Gastrointestinal (Abdomen): Inspection/Auscultation: normal bowel sounds Percussion/Palpation: + abdomen tender (RUQ, s/p surgery) and abdomen soft; abdomen not rigid Musculoskeletal: no cyanosis or clubbing, extremities motor strength 5/5 Skin: no rashes, warm and dry Neurologic: PERRL, EOMI, no face palsy, no dysarthria, moves extremities Psychiatric: A+Ox3, euthymic affect Results & Data Results & Data ([facility]) Vital Signs (Past 12 Hours) Vital Signs Temp Pulse Resp Pulse Ox 11/22/20 06:28 20 11/22/20 06:00 75 17 100 11/22/20 05:30 75 29 H 97 11/22/20 05:00 79 28 H 96 11/22/20 04:30 79 30 H 98 11/22/20 04:00 37.3 C 79 20 96 11/22/20 03:30 74 18 97 11/22/20 03:21 86 21 95 11/22/20 03:00 75 19 96 11/22/20 02:30 73 21 98 11/22/20 02:00 89 19 93 11/22/20 01:30 79 20 95 11/22/20 01:00 78 20 95 11/22/20 00:30 79 21 11/22/20 00:07 78 20 94 11/22/20 00:00 37.2 C 77 24 11/21/20 23:35 78 26 H 11/21/20 23:00 78 20 98 11/21/20 22:30 73 21 98 11/21/20 22:00 75 20 97 11/21/20 21:30 82 30 H 97 11/21/20 21:00 75 22 97 Laboratory Results 11/22/20 11/22/20 11/22/20 Range/Units 05:38 03:23 02:08 WBC (4.8-10.8) K/uL RBC (4.2-5.4) M/uL Hgb (12.0-16.0) g/dL Hct (37-47) % MCV (80-100) fL MCH (25-34) pg MCHC (32-36) g/dL RDW Std Deviation (36.4-46.3) fL RDW Coeff of [place] (11.5-14.5) % Plt Count (130-400) K/uL MPV (7.4-10.4) fL APTT 40.7 H (21.0-31.0) Seconds PTT Ratio 1.5 Sample Site Art Line POC pH 7.22 L (7.35-7.45) POC pCO2 61 H (35-46) mmHg POC pO2 87 (80-95) mmHg POC HCO3 25 H (19-24) pedro/L POC Total CO2 27 (24-31) mmol/L POC Base Excess -3.0 (-9-1.8) pedro/L ABG pH (7.35-7.45) ABG pCO2 (35-46) mmHg ABG pO2 (80-95) mmHg ABG HCO3 (19-24) mmol/L POC ABG O2 Sat 94.0 (90-95) % ABG O2 Saturation (90-95) % ABG Base Excess (-9-1.8) mEq/L Rene Test NA (Pos) Barometric Pressure mm/Hg Oxygen Given O2 Delivery Device BIPAP POC O2 Rate 20 POC FiO2 35 % IPAP 16 Sodium (136-145) mmol/L Potassium (3.5-5.1) mmol/L Chloride (98-107) mmol/L Carbon Dioxide (21-32) mmol/L Anion Gap (3-11) BUN (7-18) mg/dl Creatinine (0.6-1.2) mg/dl Est Cr Clr Drug Dosing ml/min Est GFR ( Amer) Est GFR (Non-Af Amer) BUN/Creatinine Ratio (10-20) Glucose (70-99) mg/dl POC Glucose 146 H (70-99) mg/dl Lactate (0.4-2.0) mmol/L Calcium (8.5-10.1) mg/dl Phosphorus (2.5-4.9) mg/dl Magnesium (1.8-2.4) mg/dl Total Bilirubin (0.2-1) mg/dl AST (15-37) U/L ALT (12-78) U/L Alkaline Phosphatase (45-117) U/L Ammonia (11-32) umol/L Total Protein (6.4-8.2) gm/dl Albumin (3.4-5.0) gm/dl Globulin (2.5-4.0) gm/dl Albumin/Globulin Ratio (0.9-2) Beta-Hydroxybutyric Acd (0.2-2.81) mg/dl Procalcitonin (0-0.5) ng/ml Random Cortisol mcg/dl 11/22/20 11/22/20 11/22/20 Range/Units 02:08 02:08 02:08 WBC (4.8-10.8) K/uL RBC (4.2-5.4) M/uL Hgb (12.0-16.0) g/dL Hct (37-47) % MCV (80-100) fL MCH (25-34) pg MCHC (32-36) g/dL RDW Std Deviation (36.4-46.3) fL RDW Coeff of [place] (11.5-14.5) % Plt Count (130-400) K/uL MPV (7.4-10.4) fL APTT (21.0-31.0) Seconds PTT Ratio Sample Site POC pH (7.35-7.45) POC pCO2 (35-46) mmHg POC pO2 (80-95) mmHg POC HCO3 (19-24) pedro/L POC Total CO2 (24-31) mmol/L POC Base Excess (-9-1.8) pedro/L ABG pH (7.35-7.45) ABG pCO2 (35-46) mmHg ABG pO2 (80-95) mmHg ABG HCO3 (19-24) mmol/L POC ABG O2 Sat (90-95) % ABG O2 Saturation (90-95) % ABG Base Excess (-9-1.8) mEq/L Rene Test (Pos) Barometric Pressure mm/Hg Oxygen Given O2 Delivery Device POC O2 Rate POC FiO2 % IPAP Sodium 141 (136-145) mmol/L Potassium 4.5 (3.5-5.1) mmol/L Chloride 111 H (98-107) mmol/L Carbon Dioxide 28 (21-32) mmol/L Anion Gap 2.0 L (3-11) BUN 38 H (7-18) mg/dl Creatinine 0.89 D (0.6-1.2) mg/dl Est Cr Clr Drug Dosing 68.3 ml/min Est GFR ( Amer) 71.9 Est GFR (Non-Af Amer) 62.1 BUN/Creatinine Ratio 42.9 H (10-20) Glucose 154 H (70-99) mg/dl POC Glucose (70-99) mg/dl Lactate (0.4-2.0) mmol/L Calcium 7.6 L (8.5-10.1) mg/dl Phosphorus 1.7 L (2.5-4.9) mg/dl Magnesium 2.5 H (1.8-2.4) mg/dl Total Bilirubin 0.3 (0.2-1) mg/dl AST 19 (15-37) U/L ALT 12 (12-78) U/L Alkaline Phosphatase 85 (45-117) U/L Ammonia 26.0 (11-32) umol/L Total Protein 6.4 (6.4-8.2) gm/dl Albumin 1.8 L (3.4-5.0) gm/dl Globulin 4.6 H (2.5-4.0) gm/dl Albumin/Globulin Ratio 0.4 L (0.9-2) Beta-Hydroxybutyric Acd (0.2-2.81) mg/dl Procalcitonin 10.02 H (0-0.5) ng/ml Random Cortisol mcg/dl 11/22/20 11/21/20 11/21/20 Range/Units 02:08 22:39 19:16 WBC 12.57 H (4.8-10.8) K/uL RBC 4.00 L (4.2-5.4) M/uL Hgb 11.0 L (12.0-16.0) g/dL Hct 36.9 L (37-47) % MCV 92.3 (80-100) fL MCH 27.5 (25-34) pg MCHC 29.8 L (32-36) g/dL RDW Std Deviation 54.4 H (36.4-46.3) fL RDW Coeff of [place] 16.1 H (11.5-14.5) % Plt Count 221 (130-400) K/uL MPV 11.5 H (7.4-10.4) fL APTT (21.0-31.0) Seconds PTT Ratio Sample Site POC pH (7.35-7.45) POC pCO2 (35-46) mmHg POC pO2 (80-95) mmHg POC HCO3 (19-24) pedro/L POC Total CO2 (24-31) mmol/L POC Base Excess (-9-1.8) pedro/L ABG pH (7.35-7.45) ABG pCO2 (35-46) mmHg ABG pO2 (80-95) mmHg ABG HCO3 (19-24) mmol/L POC ABG O2 Sat (90-95) % ABG O2 Saturation (90-95) % ABG Base Excess (-9-1.8) mEq/L Rene Test (Pos) Barometric Pressure mm/Hg Oxygen Given O2 Delivery Device POC O2 Rate POC FiO2 % IPAP Sodium (136-145) mmol/L Potassium (3.5-5.1) mmol/L Chloride (98-107) mmol/L Carbon Dioxide (21-32) mmol/L Anion Gap (3-11) BUN (7-18) mg/dl Creatinine (0.6-1.2) mg/dl Est Cr Clr Drug Dosing ml/min Est GFR ( Amer) Est GFR (Non-Af Amer) BUN/Creatinine Ratio (10-20) Glucose (70-99) mg/dl POC Glucose 134 H (70-99) mg/dl Lactate (0.4-2.0) mmol/L Calcium (8.5-10.1) mg/dl Phosphorus (2.5-4.9) mg/dl Magnesium (1.8-2.4) mg/dl Total Bilirubin (0.2-1) mg/dl AST (15-37) U/L ALT (12-78) U/L Alkaline Phosphatase (45-117) U/L Ammonia (11-32) umol/L Total Protein (6.4-8.2) gm/dl Albumin (3.4-5.0) gm/dl Globulin (2.5-4.0) gm/dl Albumin/Globulin Ratio (0.9-2) Beta-Hydroxybutyric Acd (0.2-2.81) mg/dl Procalcitonin 14.14 H (0-0.5) ng/ml Random Cortisol mcg/dl 11/21/20 11/21/20 11/21/20 Range/Units 19:16 19:16 19:16 WBC (4.8-10.8) K/uL RBC (4.2-5.4) M/uL Hgb (12.0-16.0) g/dL Hct (37-47) % MCV (80-100) fL MCH (25-34) pg MCHC (32-36) g/dL RDW Std Deviation (36.4-46.3) fL RDW Coeff of [place] (11.5-14.5) % Plt Count (130-400) K/uL MPV (7.4-10.4) fL APTT (21.0-31.0) Seconds PTT Ratio Sample Site POC pH (7.35-7.45) POC pCO2 (35-46) mmHg POC pO2 (80-95) mmHg POC HCO3 (19-24) pedro/L POC Total CO2 (24-31) mmol/L POC Base Excess (-9-1.8) pedro/L ABG pH (7.35-7.45) ABG pCO2 (35-46) mmHg ABG pO2 (80-95) mmHg ABG HCO3 (19-24) mmol/L POC ABG O2 Sat (90-95) % ABG O2 Saturation (90-95) % ABG Base Excess (-9-1.8) mEq/L Rene Test (Pos) Barometric Pressure mm/Hg Oxygen Given O2 Delivery Device POC O2 Rate POC FiO2 % IPAP Sodium 135 L (136-145) mmol/L Potassium 4.5 (3.5-5.1) mmol/L Chloride 104 (98-107) mmol/L Carbon Dioxide 27 (21-32) mmol/L Anion Gap 4.0 (3-11) BUN 42 H (7-18) mg/dl Creatinine 1.21 H (0.6-1.2) mg/dl Est Cr Clr Drug Dosing 50.2 ml/min Est GFR ( Amer) 49.6 Est GFR (Non-Af Amer) 42.8 BUN/Creatinine Ratio 34.6 H (10-20) Glucose 319 H* (70-99) mg/dl POC Glucose (70-99) mg/dl Lactate 1.0 (0.4-2.0) mmol/L Calcium 7.5 L (8.5-10.1) mg/dl Phosphorus (2.5-4.9) mg/dl Magnesium (1.8-2.4) mg/dl Total Bilirubin 0.3 (0.2-1) mg/dl AST 22 (15-37) U/L ALT 13 (12-78) U/L Alkaline Phosphatase 90 (45-117) U/L Ammonia (11-32) umol/L Total Protein 6.3 L (6.4-8.2) gm/dl Albumin 1.6 L (3.4-5.0) gm/dl Globulin 4.7 H (2.5-4.0) gm/dl Albumin/Globulin Ratio 0.3 L (0.9-2) Beta-Hydroxybutyric Acd 1.02 (0.2-2.81) mg/dl Procalcitonin (0-0.5) ng/ml Random Cortisol 36.56 mcg/dl 11/21/20 11/21/20 11/21/20 Range/Units 19:16 18:50 16:33 WBC 13.93 H (4.8-10.8) K/uL RBC 4.03 L (4.2-5.4) M/uL Hgb 11.2 L (12.0-16.0) g/dL Hct 37.4 (37-47) % MCV 92.8 (80-100) fL MCH 27.8 (25-34) pg MCHC 29.9 L (32-36) g/dL RDW Std Deviation 55.7 H (36.4-46.3) fL RDW Coeff of [place] 16.2 H (11.5-14.5) % Plt Count 255 (130-400) K/uL MPV 11.6 H (7.4-10.4) fL APTT (21.0-31.0) Seconds PTT Ratio Sample Site POC pH (7.35-7.45) POC pCO2 (35-46) mmHg POC pO2 (80-95) mmHg POC HCO3 (19-24) pedro/L POC Total CO2 (24-31) mmol/L POC Base Excess (-9-1.8) pedro/L ABG pH 7.26 L (7.35-7.45) ABG pCO2 58 H (35-46) mmHg ABG pO2 86 (80-95) mmHg ABG HCO3 25 H (19-24) mmol/L POC ABG O2 Sat (90-95) % ABG O2 Saturation 95.6 H (90-95) % ABG Base Excess -2.5 (-9-1.8) mEq/L Rene Test POS (Pos) Barometric Pressure 733.8 mm/Hg Oxygen Given 4L O2 O2 Delivery Device POC O2 Rate POC FiO2 % IPAP Sodium (136-145) mmol/L Potassium (3.5-5.1) mmol/L Chloride (98-107) mmol/L Carbon Dioxide (21-32) mmol/L Anion Gap (3-11) BUN (7-18) mg/dl Creatinine (0.6-1.2) mg/dl Est Cr Clr Drug Dosing ml/min Est GFR ( Amer) Est GFR (Non-Af Amer) BUN/Creatinine Ratio (10-20) Glucose (70-99) mg/dl POC Glucose 199 H (70-99) mg/dl Lactate (0.4-2.0) mmol/L Calcium (8.5-10.1) mg/dl Phosphorus (2.5-4.9) mg/dl Magnesium (1.8-2.4) mg/dl Total Bilirubin (0.2-1) mg/dl AST (15-37) U/L ALT (12-78) U/L Alkaline Phosphatase (45-117) U/L Ammonia (11-32) umol/L Total Protein (6.4-8.2) gm/dl Albumin (3.4-5.0) gm/dl Globulin (2.5-4.0) gm/dl Albumin/Globulin Ratio (0.9-2) Beta-Hydroxybutyric Acd (0.2-2.81) mg/dl Procalcitonin (0-0.5) ng/ml Random Cortisol mcg/dl 11/21/20 11/21/20 Range/Units 15:50 11:35 WBC (4.8-10.8) K/uL RBC (4.2-5.4) M/uL Hgb (12.0-16.0) g/dL Hct (37-47) % MCV (80-100) fL MCH (25-34) pg MCHC (32-36) g/dL RDW Std Deviation (36.4-46.3) fL RDW Coeff of [place] (11.5-14.5) % Plt Count (130-400) K/uL MPV (7.4-10.4) fL APTT 95.3 H* (21.0-31.0) Seconds PTT Ratio 3.4 Sample Site POC pH (7.35-7.45) POC pCO2 (35-46) mmHg POC pO2 (80-95) mmHg POC HCO3 (19-24) pedro/L POC Total CO2 (24-31) mmol/L POC Base Excess (-9-1.8) pedro/L ABG pH (7.35-7.45) ABG pCO2 (35-46) mmHg ABG pO2 (80-95) mmHg ABG HCO3 (19-24) mmol/L POC ABG O2 Sat (90-95) % ABG O2 Saturation (90-95) % ABG Base Excess (-9-1.8) mEq/L Rene Test (Pos) Barometric Pressure mm/Hg Oxygen Given O2 Delivery Device POC O2 Rate POC FiO2 % IPAP Sodium (136-145) mmol/L Potassium (3.5-5.1) mmol/L Chloride (98-107) mmol/L Carbon Dioxide (21-32) mmol/L Anion Gap (3-11) BUN (7-18) mg/dl Creatinine (0.6-1.2) mg/dl Est Cr Clr Drug Dosing ml/min Est GFR ( Amer) Est GFR (Non-Af Amer) BUN/Creatinine Ratio (10-20) Glucose (70-99) mg/dl POC Glucose 270 H (70-99) mg/dl Lactate (0.4-2.0) mmol/L Calcium (8.5-10.1) mg/dl Phosphorus (2.5-4.9) mg/dl Magnesium (1.8-2.4) mg/dl Total Bilirubin (0.2-1) mg/dl AST (15-37) U/L ALT (12-78) U/L Alkaline Phosphatase (45-117) U/L Ammonia (11-32) umol/L Total Protein (6.4-8.2) gm/dl Albumin (3.4-5.0) gm/dl Globulin (2.5-4.0) gm/dl Albumin/Globulin Ratio (0.9-2) Beta-Hydroxybutyric Acd (0.2-2.81) mg/dl Procalcitonin (0-0.5) ng/ml Random Cortisol mcg/dl Medications Administered Current Inpatient Medications Acetaminophen (Acetaminophen 325 Mg Tab) 650 mg PO Q4H PRN PRN Reason: Pain or Fever Stop: 12/19/20 22:07 Last Admin: 11/21/20 00:22 Dose: 650 mg Documented by: Cyanocobalamin (Cyanocobalamin 500 Mcg Tablet (Vitamin B-12)) 1,000 mcg PO DAILY TAYO Stop: 12/21/20 08:59 Last Admin: 11/22/20 08:06 Dose: 1,000 mcg Documented by: Dextrose (Dextrose 50% 50 Ml Syringe) 25 - 50 ml IV UD PRN; Protocol PRN Reason: Hypoglycemia Protocol Stop: 12/19/20 22:07 Glucagon (Glucagon For Inj 1 Mg Vial) 1 mg SQ UD PRN; Protocol PRN Reason: Hypoglycemia Protocol Stop: 12/19/20 22:07 Glucose (Glucose 10 Tabs/Tube) 4 - 8 tabs PO UD PRN; Protocol PRN Reason: Hypoglycemia Protocol Stop: 12/19/20 22:07 Glucose (Glucose 40% Gel 15 Gm Tube) 15 - 30 gm PO UD PRN; Protocol PRN Reason: Hypoglycemia Protocol Stop: 12/19/20 22:07 Metronidazole (Flagyl) 500 mg in 100 mls @ 100 mls/hr IV Q8H TAYO Stop: 11/30/20 00:00 Last Admin: 11/22/20 07:48 Dose: 100 mls/hr Documented by: Heparin Sodium/Dextrose (Heparin Sodium/Dextrose) 25,000 units in 500 mls @ 29 mls/hr IV .[id number] [facility]; Protocol Stop: 12/21/20 09:44 Last Titration: 11/22/20 06:56 Dose: 1,450 units/hr, 29 mls/hr Documented by: Amiodarone HCl/Dextrose (Nexterone / D5w) 360 mg in 200 mls @ 16.667 mls/hr IV .Q12H [facility] Stop: 12/21/20 15:59 Last Infusion: 11/22/20 06:57 Dose: 0.5 mg/min, 16.7 mls/hr Documented by: Ceftriaxone Sodium 2,000 mg/ (Dextrose) 70 mls @ 140 mls/hr IV Q24H [facility] Stop: 12/05/20 13:59 Last Infusion: 11/21/20 14:53 Dose: Infused Documented by: Parenteral Electrolytes (Normosol-R) 1,000 mls @ 100 mls/hr IV .Q10H [facility] Stop: 12/21/20 22:59 Last Admin: 11/22/20 01:38 Dose: 100 mls/hr Documented by: Albumin Human (Albumin 25%) 12.5 gm in 50 mls @ 50 mls/hr IV TID [facility] Stop: 11/25/20 04:59 Last Admin: 11/22/20 08:07 Dose: 50 mls/hr Documented by: Insulin Aspart (Insulin Aspart 100 Units/Ml 3 Ml Pen) 0 units SC Q6 [facility] Stop: 12/22/20 11:59 Insulin Glargine (Insulin Glargine Solostar 100 Units/Ml 3 Ml Pen) 50 units SC QDD [facility] Stop: 12/21/20 16:29 Last Admin: 11/21/20 17:14 Dose: 50 units Documented by: Metoprolol Tartrate (Metoprolol Tartrate 100 Mg Tab) 100 mg PO BID [facility] Stop: 12/19/20 22:07 Last Admin: 11/22/20 08:05 Dose: 100 mg Documented by: Miscellaneous (Carbohydrates For Hypoglycemia ) 15 - 30 gm PO UD PRN PRN Reason: Hypoglycemia Protocol Stop: 12/19/20 22:07 Miscellaneous Information (Pharmacy Glycemic Mgmt Consult) 1 ea N/A UD PRN; Protocol PRN Reason: Consult Stop: 12/19/20 22:17 Morphine Sulfate (Morphine Sulfate 4 Mg/Ml 1 Ml Carp\Vial) 4 mg IV Q4H PRN PRN Reason: Pain Stop: 12/03/20 22:07 Ondansetron HCl (Ondansetron Inj 2 Mg/Ml 2 Ml Vial) 4 mg IV Q6H PRN PRN Reason: Nausea Stop: 12/19/20 22:07 Last Admin: 11/19/20 23:21 Dose: 4 mg Documented by: Oxycodone HCl (Oxycodone Hcl Ir 5 Mg Tab (Immediate Release)) 5 mg PO Q4H PRN PRN Reason: Moderate Pain Stop: 12/05/20 11:06 Pregabalin (Pregabalin 100 Mg Cap) 200 mg PO BID TAYO Stop: 12/19/20 22:07 Last Admin: 11/22/20 08:07 Dose: 200 mg Documented by: Sodium Phosphate (Sodium Phosphate 3 Mmol/1 Ml Infusion) 9 mmol IV NOW STA Stop: 11/22/20 08:32 (1) Sepsis Sepsis acute organ dysfunction status: unspecified Sepsis type: sepsis due to unspecified organism Qualified Code(s): A41.9 - Sepsis, unspecified organism
[2020-11-22] MEDS ORDERED: SODIUM PHOSPHATE 9 MMOL in SODIUM CHLORIDE 0.9% 250 ML IV ONE (08:45)
--- NOTE | 2020-11-22 08:48 | CT Scan Report ---
CT ANGIOGRAM OF THE CHEST CLINICAL HISTORY: Chest pain. History of laparoscopic cholecystectomy COMPARISON STUDY: Earlier in the day TECHNIQUE: Following the IV administration of 118 mL of [id number]-320, CT angiogram of the thorax was p erformed from the thoracic inlet to the lung bases utilizing the pulmonary embolus protocol. Images a re reviewed in the axial, sagittal, and coronal planes. IV contrast was administered without complica tion. MIP imaging was performed. A dose lowering technique was utilized adhering to the principles o f ALARA. CT DOSE: FINDINGS: Paratracheal lymph nodes are borderline enlarged. There is mild dilatation of the ascending thoracic aorta which measures 37 mm the level of the main p ulmonary artery The study is compromised due to respiratory motion artifact. No central emboli are visualized. Evalua tion of peripheral branches is limited. There are bilateral pleural effusions. There is bilateral lower lobe atelectasis/consolidation. The heart is enlarged with coronary artery calcifications. 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 IMPRESSION: 1. Motion compromised study 2. Cardiomegaly with coronary artery calcifications 3. Mild dilatation of the ascending thoracic aorta measuring 37 mm 4. No central emboli identified. Peripheral branches cannot be technically assessed due to motion art ifact. 5. Bilateral pleural effusions with lower lobe atelectasis/consolidation 6. Tracheomalacia 7. Borderline enlarged mediastinal lymph nodes ACT 112: Negative or not required by law. Electronically signed by: Jasper Bennett M.D. 11/22/2020 8:46 AM
--- NOTE | 2020-11-22 09:05 | XRay Report ---
XR chest 1V portable CLINICAL HISTORY: Shortness of breath. Abnormal chest x-ray COMPARISON STUDY: 11/21/2020 FINDINGS: The heart remains enlarged. There is persistent interstitial thickening. Small effusions ar e suspected. There is no lobar consolidation.[ IMPRESSION: Cardiomegaly and persistent interstitial thickening perhaps minimally improved when bridget red the prior study. Suspected tiny effusions. ACT 112: Negative or not required by law. Electronically signed by: Jasper Bennett M.D. 11/22/2020 9:04 AM
--- NOTE | 2020-11-22 10:47 | Surgery Progress Note ---
Date of Service November 22, 2020 Assessment & Plan (1) Cholecystitis: POD 2 lap france WBC 12, LFTs remain normal cont drain, IV abx advance diet as arminda as mental status permits seen with Dr. Ayala Admission and Anticipated Discharge Date Admission Date: November 19, 2020 Supervising Physician Co-Signing Physician Notes Patient seen and examined, agree with above. POD #3 ERCP, POD #2 laparoscopic cholecystectomy drain placement. Overnight events noted, transferred to the ICU for a flutter hypoxia. This morning doing well, some abdominal soreness but no pain. Incisions healing well, no evidence of infection. Abdomen soft, nondistended, appropriately tender to palpation. WBC downtrending. Advance diet as tolerated, continue YURI drain, discharge when medically stable. Subjective transferred to ICU for AMS/hypoxia/A-flutter, awake alert this AM, c/o abd pain when moving, no nausea, hungry Physical Exam Gastrointestinal (Abdomen): Inspection/Auscultation: + abdominal surgical incision and + abdominal surgical drain present (460 cc serous) Percussion/Palpation: abdomen soft Results & Data ([facility]) Vital Signs (Past 12 Hours) Vital Signs Temp Pulse Resp Pulse Ox 11/22/20 09:00 71 25 H 93 11/22/20 08:15 77 22 98 11/22/20 08:00 36.8 C 81 24 99 11/22/20 07:00 83 21 96 11/22/20 06:28 20 11/22/20 06:00 75 17 100 11/22/20 05:30 75 29 H 97 11/22/20 05:00 79 28 H 96 11/22/20 04:30 79 30 H 98 11/22/20 04:00 37.3 C 79 20 96 11/22/20 03:30 74 18 97 11/22/20 03:21 86 21 95 11/22/20 03:00 75 19 96 11/22/20 02:30 73 21 98 11/22/20 02:00 89 19 93 11/22/20 01:30 79 20 95 11/22/20 01:00 78 20 95 11/22/20 00:30 79 21 11/22/20 00:07 78 20 94 11/22/20 00:00 37.2 C 77 24 11/21/20 23:35 78 26 H 01/08/21 23:00 78 20 98 PG Care Time/CCT Total # of Minutes Spent Total Time Spent with Patient: Total time spent is greater than 50% in coordination of care (as documented) at patient's floor/unit and/or counseling patient: Coding Level of Care Code 59329 Subseq Hosp Care Lvl 1 Diagnoses Cholecystitis K81.9
[2020-11-22 11:26] LABS: Partial Thromboplastin Ratio 1.5; Partial Thromboplastin Time 40.5 Seconds (21.0-31.0)
[2020-11-22] MEDS ORDERED: INSULIN ASPART 100 UNITS/ML 3 ML PEN SC SCH (12:00)
--- NOTE | 2020-11-22 12:25 | Cardiology Progress Note ---
Date of Service November 22, 2020 Assessment & Plan (1) Atrial flutter with rapid ventricular response: (2) NSVT (nonsustained ventricular tachycardia): (3) Moderate aortic stenosis: (4) HTN (hypertension): (5) History of paroxysmal supraventricular tachycardia: (6) History of paroxysmal atrial tachycardia: (7) Acute cholecystitis: (8) Lymphedema, not elsewhere classified: (9) History of pulmonary embolism: (10) DM type 2 (diabetes mellitus, type 2): (11) SHAYNE (acute kidney injury): Converted to sinus rhythm. Recommend changing amiodarone to 400 mg p.o. twice daily once tolerating orals. Heparin to be restarted at this time, no contraindications from a surgical standpoint. Should also be continued on metoprolol. Continue to follow closely on telemetry Aortic stenosis is unchanged and remains moderate. Septal wall flattening consistent with RV pressure/volume overload also seen on echocardiogram. Admission and Anticipated Discharge Date Admission Date: November 19, 2020 Subjective Patient seen and examined, chart reviewed. Events of last night reviewed. Patient seen and examined back on telemetry unit. States that she is feeling very tired today but thinks that her breathing is a little easier than yesterday. She continues to deny any cardiac complaints of chest pain, palpitations, lightheadedness or dizziness. Telemetry reviewed: Patient spontaneously converted to normal sinus rhythm on amiodarone drip. Review of Systems Review of Systems: All systems reviewed & are unremarkable except as noted in HPI & below Physical Exam Physical Exam: General: Awake, alert and oriented x 3. No acute distress. HEENT: Normocephalic, atraumatic. Pupils equal, round and reactive to light and accommodation. Extraocular muscles are intact. Anicteric sclera. Moist mucous membranes. Neck: No JVD. No bruit. Cardiovascular: Regular. Positive S-4. Normal S-1 and S-2. No S-3. No murmurs or rubs. Pulmonary: Clear to auscultation B/L. No rales, rhonchi or wheezing Abdomen: Bowel sounds x 4, soft. No rebound, guarding or tenderness. No organomegaly. Extremities: No clubbing, cyanosis or edema. +2 pedal pulses bilaterally. Skin: Warm and dry. Results & Data ([facility]) Vital Signs (Past 12 Hours) Vital Signs Temp Pulse Pulse Resp BP Pulse Ox 11/22/20 12:08 65 22 94 11/22/20 11:45 37 C 66 18 131/72 98 11/22/20 09:00 71 25 H 93 11/22/20 08:15 77 22 98 11/22/20 08:00 36.8 C 81 24 99 11/22/20 07:00 83 21 96 11/22/20 06:28 20 11/22/20 06:00 75 17 100 11/22/20 05:30 75 29 H 97 11/22/20 05:00 79 28 H 96 11/22/20 04:30 79 30 H 98 11/22/20 04:00 37.3 C 79 20 96 11/22/20 03:30 74 18 97 11/22/20 03:21 86 21 95 11/22/20 03:00 75 19 96 11/22/20 02:30 73 21 98 11/22/20 02:00 89 19 93 11/22/20 01:30 79 20 95 11/22/20 01:00 78 20 95 11/22/20 00:30 79 21
[2020-11-22] MEDS: cefTRIAXone SODIUM 2,000 MG in DEXTROSE 5% 50 ML IV SCH (14:55)
[2020-11-22] MEDS: INSULIN GLARGINE SOLOSTAR 100 UNITS/ML 3 ML PEN SC SCH (17:09)
[2020-11-22 18:46] LABS: Base Excess ABG 1.2 mEq/L (-9-1.8); HCO3 ABG 27 mmol/L (19-24); Oxygen Saturation ABG 93.2 % (90-95); PCO2 ABG 51 mmHg (35-46); PO2 ABG 66 mmHg (80-95); pH ABG 7.35 (7.35-7.45)
[2020-11-22 18:53] LABS: Partial Thromboplastin Time 28.5 Seconds (21.0-31.0)
[2020-11-22 18:53] LABS: Allen Test Pos (Pos)
[2020-11-22] MEDS ORDERED: HEPARIN IV BOLUS 7,000 UNITS in SYRINGE 0 ML IV ONE (20:15)
[2020-11-23 02:40] LABS: Hematocrit (blood only) 34.9 % (37-47); Hemoglobin 10.6 g/dL (12.0-16.0); Mean Corpuscular Hemoglobin 28.3 pg (25-34); Mean Corpuscular Hgb Conc 30.4 g/dL (32-36); Mean Corpuscular Volume 93.1 fL (80-100); Mean Platelet Volume 11.1 fL (7.4-10.4); Platelet Count 240 K/uL (130-400); RDW Coefficient of Variation 16.2 % (11.5-14.5); RDW Standard Deviation 55.1 fL (36.4-46.3); Red Blood Count 3.75 M/uL (4.2-5.4); White Blood Count 9.18 K/uL (4.8-10.8)
[2020-11-23 03:03] LABS: Partial Thromboplastin Ratio 2.3
[2020-11-23 03:04] LABS: BUN Creatinine Ratio 37.4 (10-20); Calcium 7.5 mg/dl (8.5-10.1); Creatinine Clr Calc Pharmacy 97.6 ml/min; Est GFR (African American) 99.6; Est GFR (Non-African American) 85.9; Magnesium 2.6 mg/dl (1.8-2.4); Potassium 4.1 mmol/L (3.5-5.1)
[2020-11-23 03:07] LABS: Partial Thromboplastin Time 65.1 Seconds (21.0-31.0)
[2020-11-23 03:10] LABS: Phosphorus 1.2 mg/dl (2.5-4.9)
[2020-11-23] MEDS ORDERED: SODIUM PHOSPHATE 3 MMOL/1 ML INFUSION IV STA (03:37)
[2020-11-23] MEDS ORDERED: SODIUM PHOSPHATE 30 MMOL in SODIUM CHLORIDE 0.9% 500 ML IV ONE (03:45)
[2020-11-23] MEDS: NORMOSOL-R 1,000 ML IV SCH ×2 (05:20→16:49)
[2020-11-23] MEDS: AMIODARONE / D5W 360 MG/200 ML BAG IV SCH ×2 (05:20→16:50)
[2020-11-23] MEDS: metroNIDAZOLE 500 MG/100 ML BAG IV SCH ×2 (07:56→16:46)
--- NOTE | 2020-11-23 07:57 | Hospitalist Progress Note ---
Date of Service November 23, 2020 Assessment & Plan (1) Choledocholithiasis: (2) Ascending cholangitis: (3) Acute cholecystitis: -Patient presenting from home with reports of epigastric abdominal pain x 5 days -In the ED, CT ABD/pelvis shows findings are consistent with acute cholecystitis and could represent early gangrenous change -Severe sepsis on presentation with fever, tachycardia, hypotension, WBC 22K, lactic acid 2.5. BP improved after IVF, repeat lactate 1.3 -ERCP 11/19/2020: + Choledocholithiasis, ascending cholangitis, stents placed -S/P laparoscopic cholecystectomy 11/21/[address] Macdonald -On IV cefepime and IV Flagyl (day 3) -> switched to IV ceftriaxone and flagyl (given cultx) -Afebrile, WBC 10K -Febrile overnight - repeat blood cultx ordered (4) Sepsis: -Resuscitated, resolved (5) E coli bacteremia: -2/4 blood cultures growing gram-negative bacilli/E. coli -Continue IV ceftriaxone and IV Flagyl -Repeat blood cultures today (6) UTI (urinary tract infection): -Urine culture growing pansensitive E. coli - was on IV cefepime , now ceftriaxone (7) Atrial flutter with rapid ventricular response: (8) NSVT (nonsustained ventricular tachycardia): -11/21/2020: Telemetry revealed episodes of SVT overnight, 0756: 25 beat run of V. tach, 0801: 7 beat run of V. tach and transitioned into A. fib with RVR -Cardiology consulted -Received amiodarone bolus followed by drip -Started on IV heparin (discussed with general surgery) -Continue metoprolol -Possible precipitating factors: Sepsis, acute cholecystitis, ascending cholangitis, bacteremia, untreated LUZ MARIA, hypoxia / concern for PE - CT PE negative -echo - Pt converted to NSR, plan to switch to PO amiodarone (9) Hypoxia: -On admission, patient hypoxic on room air at 80% -Currently requiring 4 L of oxygen via oxygen mask / BiPAP w/ naps and sleeping -CT chest without contrast on admission unrevealing of cause -History of pulmonary embolism anticoagulated on Coumadin, INR 1.5 on presentation. Initially unable to do CTA chest due to SHAYNE and anticoagulation was held due to procedures. BL LE Dopplers negative for DVT. -Given ongoing hypoxia and arrhythmia, CTA chest was performed (renal function improved) - Negative for pulmonary embolism. - Hypoxia and hypercarbia secondary Obesity hypoventilation syndrome after surgery and (untreated) LUZ MARIA (10) SHAYNE (acute kidney injury): -Resolved -Creatinine 1.7 on presentation (baseline ~ 0.9). Creatinine 0.6 today -Likely prerenal due to sepsis -Continue IVF, follow renal functions -Continue to hold lisinopril (11) Left anterior fascicular block: (12) Elevated troponin: -Troponin 0.067 -> 0.06 -> 0.03 -Likely due to demand ischemia in the setting of sepsis -EKG on admission showed a left anterior fascicular block. Appeared to be new given no recent EKGs for comparison -No reports of chest pain (13) Lymphedema, not elsewhere classified: -Managed with diuretics, which were held on admission due to SHAYNE and sepsis -Continue to hold diuretics for now (14) History of pulmonary embolism: -Anticoagulation as mentioned above (15) History of paroxysmal atrial tachycardia: (16) History of paroxysmal supraventricular tachycardia: -Continue metoprolol (17) DM type 2 (diabetes mellitus, type 2): -Hgb A1c 6.8 05/2020 -Lantus/NovoLog -Glycemic pharmacy consult (18) HTN (hypertension): -Lisinopril held on admission due to hypotension/SHAYNE. SHAYNE has improved however BP remains borderline, continue lisinopril -Continue metoprolol as BP allows due to history of PAT and NSVT and now A. fib with RVR and NSVT (19) History of breast cancer: -History of breast cancer s/p left mastectomy -CT chest showing A few small right breast nodules measure up to 13 mm. Nonemergent mammogram follow-up recommended (20) LUZ MARIA (obstructive sleep apnea): -Noncompliant with CPAP -Encouraged follow-up with sleep medicine (21) DVT prophylaxis: -On IV heparin Admission and Anticipated Discharge Date Admission Date: November 19, 2020 Subjective Pt seen in follow up of acute ascending cholengitis and acute cholecystitis, gram negat. bacteremia, Afib, acte hypoxic hypercarb. resp. failure 2/2 Obesity hypoventilation syndrome after surgery, LUZ MARIA Currently s/p lap. fr[place]. Converted to NSR. Needs bipap w/ napping/ sleeping. Fever overnight - blood cultx obtained. Despite fever overnight, pt looks the best that I have seen her so far. She is awake, alert and oriented, and conversant. This AM she is on suppl. O2 via NC. Denies chest pain, shortness of breath. Has abd. tenderness at the surgical site. Review of Systems Review of Systems: All systems reviewed & are unremarkable except as noted in HPI & below ROS per HPI, all other systems reviewed and negative Constitutional: + fatigue and + weakness (generalized); no fever and no chills Respiratory: + dyspnea (much improved); no cough Cardiovascular: no chest pain and no palpitations Gastrointestinal: + abdominal pain (some discomfort at the surgical site); no vomiting Physical Exam Physical Exam: Constitutional: WD/WN, vitals as above + obese; no acute distress Eyes: PERRL, EOMI, conjunctivae normal, anicteric sclerae Neck: thick Respiratory: normal respiratory effort, lungs clear to auscultation, on suppl. O2 via NC Cardiovascular: Rate/Rhythm: regular rhythm and Vessels: normal peripheral pulses Extremities: + edema (+2 edema BLE) Gastrointestinal (Abdomen): Inspection/Auscultation: normal bowel sounds Percussion/Palpation: + abdomen tender (RUQ, s/p surgery) and abdomen soft, obese, abdomen not rigid Musculoskeletal: no cyanosis or clubbing, extremities motor strength 5/5 Skin: no rashes, warm and dry Neurologic: PERRL, EOMI, no face palsy, no dysarthria, moves extremities Psychiatric: A+Ox3, euthymic affect Results & Data Results & Data ([facility]) Vital Signs (Past 12 Hours) Vital Signs Temp Pulse Pulse Resp BP BP Pulse Ox 11/23/20 07:45 36.5 C 63 22 141/53 H 98 11/23/20 03:34 36.9 C 64 20 116/64 97 11/23/20 02:50 59 L 23 98 11/23/20 01:57 37.3 C 11/23/20 00:51 63 20 97 11/23/20 00:00 62 11/22/20 23:42 38.3 C H 61 20 149/89 H 97 11/22/20 20:13 37.1 C 73 22 164/70 H 92 Laboratory Results 11/23/20 11/23/20 11/23/20 Range/Units 07:32 02:25 02:25 WBC (4.8-10.8) K/uL RBC (4.2-5.4) M/uL Hgb (12.0-16.0) g/dL Hct (37-47) % MCV (80-100) fL MCH (25-34) pg MCHC (32-36) g/dL RDW Std Deviation (36.4-46.3) fL RDW Coeff of [place] (11.5-14.5) % Plt Count (130-400) K/uL MPV (7.4-10.4) fL APTT 65.1 H* (21.0-31.0) Seconds PTT Ratio 2.3 ABG pH (7.35-7.45) ABG pCO2 (35-46) mmHg ABG pO2 (80-95) mmHg ABG HCO3 (19-24) mmol/L ABG O2 Saturation (90-95) % ABG Base Excess (-9-1.8) mEq/L Rene Test (Pos) Barometric Pressure mm/Hg Oxygen Given Sodium 142 (136-145) mmol/L Potassium 4.1 (3.5-5.1) mmol/L Chloride 110 H (98-107) mmol/L Carbon Dioxide 30 (21-32) mmol/L Anion Gap 2.0 L (3-11) BUN 24 H (7-18) mg/dl Creatinine 0.63 (0.6-1.2) mg/dl Est Cr Clr Drug Dosing 97.6 ml/min Est GFR ( Amer) 99.6 Est GFR (Non-Af Amer) 85.9 BUN/Creatinine Ratio 37.4 H (10-20) Glucose 133 H (70-99) mg/dl POC Glucose 144 H (70-99) mg/dl Calcium 7.5 L (8.5-10.1) mg/dl Phosphorus 1.2 L* (2.5-4.9) mg/dl Magnesium 2.6 H (1.8-2.4) mg/dl 11/23/20 11/22/20 11/22/20 Range/Units 02:25 19:55 18:34 WBC 9.18 (4.8-10.8) K/uL RBC 3.75 L (4.2-5.4) M/uL Hgb 10.6 L (12.0-16.0) g/dL Hct 34.9 L (37-47) % MCV 93.1 (80-100) fL MCH 28.3 (25-34) pg MCHC 30.4 L (32-36) g/dL RDW Std Deviation 55.1 H (36.4-46.3) fL RDW Coeff of [place] 16.2 H (11.5-14.5) % Plt Count 240 (130-400) K/uL MPV 11.1 H (7.4-10.4) fL APTT (21.0-31.0) Seconds PTT Ratio ABG pH 7.35 (7.35-7.45) ABG pCO2 51 H (35-46) mmHg ABG pO2 66 L (80-95) mmHg ABG HCO3 27 H (19-24) mmol/L ABG O2 Saturation 93.2 (90-95) % ABG Base Excess 1.2 (-9-1.8) mEq/L Rene Test Pos (Pos) Barometric Pressure 736.6 mm/Hg Oxygen Given FLOW RATE 3 Sodium (136-145) mmol/L Potassium (3.5-5.1) mmol/L Chloride (98-107) mmol/L Carbon Dioxide (21-32) mmol/L Anion Gap (3-11) BUN (7-18) mg/dl Creatinine (0.6-1.2) mg/dl Est Cr Clr Drug Dosing ml/min Est GFR ( Amer) Est GFR (Non-Af Amer) BUN/Creatinine Ratio (10-20) Glucose (70-99) mg/dl POC Glucose 197 H (70-99) mg/dl Calcium (8.5-10.1) mg/dl Phosphorus (2.5-4.9) mg/dl Magnesium (1.8-2.4) mg/dl 11/22/20 11/22/20 11/22/20 Range/Units 18:22 16:12 11:11 WBC (4.8-10.8) K/uL RBC (4.2-5.4) M/uL Hgb (12.0-16.0) g/dL Hct (37-47) % MCV (80-100) fL MCH (25-34) pg MCHC (32-36) g/dL RDW Std Deviation (36.4-46.3) fL RDW Coeff of [place] (11.5-14.5) % Plt Count (130-400) K/uL MPV (7.4-10.4) fL APTT 28.5 40.5 H (21.0-31.0) Seconds PTT Ratio 1.0 1.5 ABG pH (7.35-7.45) ABG pCO2 (35-46) mmHg ABG pO2 (80-95) mmHg ABG HCO3 (19-24) mmol/L ABG O2 Saturation (90-95) % ABG Base Excess (-9-1.8) mEq/L Rene Test (Pos) Barometric Pressure mm/Hg Oxygen Given Sodium (136-145) mmol/L Potassium (3.5-5.1) mmol/L Chloride (98-107) mmol/L Carbon Dioxide (21-32) mmol/L Anion Gap (3-11) BUN (7-18) mg/dl Creatinine (0.6-1.2) mg/dl Est Cr Clr Drug Dosing ml/min Est GFR ( Amer) Est GFR (Non-Af Amer) BUN/Creatinine Ratio (10-20) Glucose (70-99) mg/dl POC Glucose 243 H (70-99) mg/dl Calcium (8.5-10.1) mg/dl Phosphorus (2.5-4.9) mg/dl Magnesium (1.8-2.4) mg/dl 11/22/20 Range/Units 11:00 WBC (4.8-10.8) K/uL RBC (4.2-5.4) M/uL Hgb (12.0-16.0) g/dL Hct (37-47) % MCV (80-100) fL MCH (25-34) pg MCHC (32-36) g/dL RDW Std Deviation (36.4-46.3) fL RDW Coeff of [place] (11.5-14.5) % Plt Count (130-400) K/uL MPV (7.4-10.4) fL APTT (21.0-31.0) Seconds PTT Ratio ABG pH (7.35-7.45) ABG pCO2 (35-46) mmHg ABG pO2 (80-95) mmHg ABG HCO3 (19-24) mmol/L ABG O2 Saturation (90-95) % ABG Base Excess (-9-1.8) mEq/L Rene Test (Pos) Barometric Pressure mm/Hg Oxygen Given Sodium (136-145) mmol/L Potassium (3.5-5.1) mmol/L Chloride (98-107) mmol/L Carbon Dioxide (21-32) mmol/L Anion Gap (3-11) BUN (7-18) mg/dl Creatinine (0.6-1.2) mg/dl Est Cr Clr Drug Dosing ml/min Est GFR ( Amer) Est GFR (Non-Af Amer) BUN/Creatinine Ratio (10-20) Glucose (70-99) mg/dl POC Glucose 139 H (70-99) mg/dl Calcium (8.5-10.1) mg/dl Phosphorus (2.5-4.9) mg/dl Magnesium (1.8-2.4) mg/dl Medications Administered Current Inpatient Medications Acetaminophen (Acetaminophen 325 Mg Tab) 650 mg PO Q4H PRN PRN Reason: Pain or Fever Stop: 12/19/20 22:07 Last Admin: 11/21/20 00:22 Dose: 650 mg Documented by: Cyanocobalamin (Cyanocobalamin 500 Mcg Tablet (Vitamin B-12)) 1,000 mcg PO DAILY COUNT INCLUDES THE [facility] Stop: 12/21/20 08:59 Last Admin: 11/22/20 08:06 Dose: 1,000 mcg Documented by: Dextrose (Dextrose 50% 50 Ml Syringe) 25 - 50 ml IV UD PRN; Protocol PRN Reason: Hypoglycemia Protocol Stop: 12/19/20 22:07 Glucagon (Glucagon For Inj 1 Mg Vial) 1 mg SQ UD PRN; Protocol PRN Reason: Hypoglycemia Protocol Stop: 12/19/20 22:07 Glucose (Glucose 10 Tabs/Tube) 4 - 8 tabs PO UD PRN; Protocol PRN Reason: Hypoglycemia Protocol Stop: 12/19/20 22:07 Glucose (Glucose 40% Gel 15 Gm Tube) 15 - 30 gm PO UD PRN; Protocol PRN Reason: Hypoglycemia Protocol Stop: 12/19/20 22:07 Metronidazole (Flagyl) 500 mg in 100 mls @ 100 mls/hr IV Q8H TAYO Stop: 11/30/20 00:00 Last Admin: 11/23/20 07:56 Dose: 100 mls/hr Documented by: Heparin Sodium/Dextrose (Heparin Sodium/Dextrose) 25,000 units in 500 mls @ 36 mls/hr IV .[id number] COUNT INCLUDES THE [facility]; Protocol Stop: 12/21/20 09:44 Last Titration: 11/23/20 03:11 Dose: 1,800 units/hr, 36 mls/hr Documented by: Amiodarone HCl/Dextrose (Nexterone / D5w) 360 mg in 200 mls @ 16.667 mls/hr IV .Q12H COUNT INCLUDES THE [facility] Stop: 12/21/20 15:59 Last Admin: 11/23/20 05:20 Dose: 0.5 mg/min, 16.7 mls/hr Documented by: Ceftriaxone Sodium 2,000 mg/ (Dextrose) 70 mls @ 140 mls/hr IV Q24H COUNT INCLUDES THE [facility] Stop: 12/05/20 13:59 Last Infusion: 11/22/20 15:25 Dose: Infused Documented by: Parenteral Electrolytes (Normosol-R) 1,000 mls @ 100 mls/hr IV .Q10H COUNT INCLUDES THE [facility] Stop: 12/21/20 22:59 Last Admin: 11/23/20 05:20 Dose: 100 mls/hr Documented by: Albumin Human (Albumin 25%) 12.5 gm in 50 mls @ 50 mls/hr IV TID COUNT INCLUDES THE [facility] Stop: 11/25/20 04:59 Last Infusion: 11/22/20 21:37 Dose: Infused Documented by: Sodium Phosphate 30 mmol/ (Sodium Chloride) 510 mls @ 88 mls/hr IV ONE ONE Stop: 11/23/20 09:32 Last Admin: 11/23/20 04:00 Dose: 88 mls/hr Documented by: Insulin Aspart (Insulin Aspart 100 Units/Ml 3 Ml Pen) 0 units SC ACHS COUNT INCLUDES THE [facility] Stop: 12/22/20 16:29 Last Admin: 11/22/20 20:22 Dose: 4 units Documented by: Insulin Glargine (Insulin Glargine Solostar 100 Units/Ml 3 Ml Pen) 50 units SC QDD COUNT INCLUDES THE [facility] Stop: 12/21/20 16:29 Last Admin: 11/22/20 17:09 Dose: 50 units Documented by: Metoprolol Tartrate (Metoprolol Tartrate 100 Mg Tab) 100 mg PO BID TAYO Stop: 12/19/20 22:07 Last Admin: 11/22/20 20:35 Dose: 100 mg Documented by: Miscellaneous (Carbohydrates For Hypoglycemia ) 15 - 30 gm PO UD PRN PRN Reason: Hypoglycemia Protocol Stop: 12/19/20 22:07 Miscellaneous Information (Pharmacy Glycemic Mgmt Consult) 1 ea N/A UD PRN; Protocol PRN Reason: Consult Stop: 12/19/20 22:17 Morphine Sulfate (Morphine Sulfate 4 Mg/Ml 1 Ml Carp\Vial) 4 mg IV Q4H PRN PRN Reason: Pain Stop: 12/03/20 22:07 Ondansetron HCl (Ondansetron Inj 2 Mg/Ml 2 Ml Vial) 4 mg IV Q6H PRN PRN Reason: Nausea Stop: 12/19/20 22:07 Last Admin: 11/19/20 23:21 Dose: 4 mg Documented by: Oxycodone HCl (Oxycodone Hcl Ir 5 Mg Tab (Immediate Release)) 5 mg PO Q4H PRN PRN Reason: Moderate Pain Stop: 12/05/20 11:06 (1) Sepsis Sepsis acute organ dysfunction status: unspecified Sepsis type: sepsis due to unspecified organism Qualified Code(s): A41.9 - Sepsis, unspecified organism
[2020-11-23] MEDS: INSULIN ASPART 100 UNITS/ML 3 ML PEN SC SCH ×4 (08:14→20:40)
--- NOTE | 2020-11-23 08:20 | Surgery Progress Note ---
Date of Service November 23, 2020 Assessment & Plan (1) Acute cholecystitis: POD#3 lap france WBC downtrending 9 (12), pt afebrile YURI drain with sanguineous output, 360cc documented over last [address] scan findings from yesterday reviewed as above. No plans for further surgical intervention at this time, will continue YURI drain and continue on course of IV abx From our standpoint okay to advance diet as tolerates Pt seen and examined with Dr. Ayala Admission and Anticipated Discharge Date Admission Date: November 19, 2020 Supervising Physician Co-Signing Physician Notes Patient seen and examined, labs and imaging reviewed, agree with above. Status post ERCP for cholangitis followed by laparoscopic subtotal cholecystectomy with drain placement for gangrenous cholecystitis. She was transferred out of the ICU yesterday and has not had any significant hypoxia or arrhythmias. Overall she feels better than she did a few days ago. On exam she is afebrile with stable vitals. Her abdomen is soft, appropriately tender to palpation, incisions clean dry and intact. YURI with serosanguineous output. Labs reviewed with normal white blood cell count and LFTs. CT scan from the other night was reviewed, the appearance of the gallbladder bed is consistent with a subtotal cholecystectomy. At this point there is no evidence that this is an abscess, but will take a few days to mature. For now would recommend continuing IV antibiotics, diet as tolerated, continue YURI drain. Dr. Macdonald will be back tomorrow. Subjective Expressed some complaints of intermittent back pain and right sided abominal pain while in the room. Says she is hungry. Has some gas pains and says she is starting to pass some gas, no BM yet. Physical Exam Physical Exam: awake Respiratory: normal respiratory effort Gastrointestinal (Abdomen): Inspection/Auscultation: + abdominal surgical incision (c/d/i) and + abdominal surgical drain present (sangeneous output); abdomen not distended Percussion/Palpation: + abdomen tender (some mild ttp gretta-incisionally) and abdomen soft Results & Data ([facility]) Vital Signs (Past 12 Hours) Vital Signs Temp Pulse Pulse Resp BP BP Pulse Ox 11/23/20 07:45 36.5 C 63 22 141/53 H 98 11/23/20 03:34 36.9 C 64 20 116/64 97 11/23/20 02:50 59 L 23 98 11/23/20 01:57 37.3 C 11/23/20 00:51 63 20 97 11/23/20 00:00 62 11/22/20 23:42 38.3 C H 61 20 149/[address] abd pelvis IV con only CLINICAL HISTORY: Hypotension, hypoxia. Recent laparoscopic of the cystectomy. COMPARISON STUDY: 11/19/2020 TECHNIQUE: Patient was scanned in a dynamic helical fashion during intravenous administration of 1 18 cc of Optiray 320 A dose lowering technique was utilized adhering to the principles of ALARA. CT DOSE: 3702.81 mGy.cm FINDINGS: Lower chest: The heart is enlarged. There are coronary artery calcifications. There are small bilateral pleural effusions with lower lobe atelectasis/consolidation Liver: There is been interval placement of a biliary enteric stent. There is pneumobilia. No focal hepatic masses are visualized. There is a perihepatic drain present. Gallbladder: By history the patient is status post a prior cholecystectomy. Significant residual gallbladder is visualized. There is fluid outside the gallbladder lumen with air. Diagnostic considerations include abscess, or perforated gallbladder remnant with gas from the patient's biliary stent. There is a right upper quadrant surgical drain. Spleen: There is a 26 mm hypodense splenic lesion, similar to the prior study. Pancreas: There is a pancreatic stent. There is no pancreatic ductal dilatation. No pancreatic masses are visualized. Adrenal glands: Unremarkable. Kidneys: There is symmetric renal cortical enhancement. The kidneys are normal in size without hydronephrosis. Bowel: There is gastric antral and duodenal wall thickening. There are no transition zones to indicate bowel obstruction. There is no evidence of acute diverticulitis. There is no evidence of acute appendicitis. Peritoneum: There is a small amount of extraluminal gas adjacent to the gallbladder fossa. There is no significant ascites. Vasculature: The abdominal aorta is normal in course and caliber. Adenopathy: None. Pelvic viscera: The uterus is surgically absent. There is an indwelling Villarreal catheter. Skeletal structures: There is a suspected oblique L2 vertebral body fracture. This is not visualized the prior study. IMPRESSION: 1. Interval development of bilateral pleural effusions with bilateral lower lobe atelectasis/consolidation 2. Reportedly interval cholecystectomy. Significant residual gallbladder is visualized. There is gas and fluid outside the gallbladder lumen. Diagnostic considerations include abscess, versus perforated remnant gallbladder with gas introduced from the biliary enteric stent 3. Interval placement of a biliary enteric stent and pancreatic stent 4. Gastric antral and duodenal wall thickening 5. No evidence of bowel obstruction 6. Oblique L2 vertebral body fracture, finding not visualized in the prior study 7. Right upper quadrant surgical drain. ACT 112: Negative or not required by law. Electronically signed by: Jasper Bennett M.D. 11/22/2020 7:59 AM PG Care Time/CCT Total # of Minutes Spent Total Time Spent with Patient: Total time spent is greater than 50% in coordination of care (as documented) at patient's floor/unit and/or counseling patient: Coding Level of Care Code 85714 Subseq Hosp Care Lvl 1 Diagnoses Acute cholecystitis K81.0
[2020-11-23] MEDS: METOPROLOL TARTRATE 100 MG TAB PO SCH ×2 (08:32→20:47)
[2020-11-23] MEDS: CYANOCOBALAMIN 500 MCG TABLET (VITAMIN B-12) PO SCH (08:32)
[2020-11-23] MEDS: HEPARIN SODIUM/DEXTROSE 25,000 UNITS/500 ML BAG IV SCH ×2 (08:39→11:36)
[2020-11-23] MEDS: ALBUMIN 25% 12.5 GM/50 ML VIAL IV SCH ×3 (09:33→20:46)
--- NOTE | 2020-11-23 11:09 | Electrocardiogram Report ---
Test Reason : Blood Pressure : / mmHG Vent. Rate : 058 BPM Atrial Rate : 058 BPM P-R Int : 154 ms QRS Dur : 136 ms QT Int : 438 ms P-R-T Axes : 030 -40 -06 degrees QTc Int : 429 ms Sinus bradycardia Left axis deviation Non-specific intra-ventricular conduction block Poor R wave progression, consider anterior [place] vs. lead placement vs. LVH Abnormal ECG Confirmed by Bhavesh Rao ([id number]) on 11/23/2020 11:09:15 AM Referred By: REFERRED SELF Confirmed By:Dillon Rao
--- NOTE | 2020-11-23 12:38 | Cardiology Progress Note ---
Date of Service November 23, 2020 Assessment & Plan (1) Atrial flutter with rapid ventricular response: (2) NSVT (nonsustained ventricular tachycardia): (3) Moderate aortic stenosis: (4) HTN (hypertension): (5) History of paroxysmal supraventricular tachycardia: (6) History of paroxysmal atrial tachycardia: (7) Acute cholecystitis: (8) Lymphedema, not elsewhere classified: (9) History of pulmonary embolism: (10) DM type 2 (diabetes mellitus, type 2): (11) SHAYNE (acute kidney injury): Converted to sinus rhythm. Continue current dose of oral amiodarone Heparin to be restarted at this time, no contraindications from a surgical standpoint. Coumadin to be restarted Should also be continued on metoprolol. Continue to follow closely on telemetry Aortic stenosis is unchanged and remains moderate. Septal wall flattening consistent with RV pressure/volume overload also seen on echocardiogram. Admission and Anticipated Discharge Date Admission Date: November 19, 2020 Subjective Patient seen and examined, chart reviewed. States that she is unable to tell if she is feeling any better from admission currently denies any cardiac complaints of chest pain, shortness of breath, palpitations, lightheadedness, dizziness or syncope. Telemetry reviewed: Normal sinus rhythm without recurrences of A. fib. Review of Systems Review of Systems: All systems reviewed & are unremarkable except as noted in HPI & below Physical Exam Physical Exam: General: Awake, alert and oriented x 3. No acute distress. HEENT: Normocephalic, atraumatic. Pupils equal, round and reactive to light and accommodation. Extraocular muscles are intact. Anicteric sclera. Moist mucous membranes. Neck: No JVD. No bruit. Cardiovascular: Regular. Positive S-4. Normal S-1 and S-2. No S-3. No murmurs or rubs. Pulmonary: Clear to auscultation B/L. No rales, rhonchi or wheezing Abdomen: Bowel sounds x 4, soft. No rebound, guarding or tenderness. No organomegaly. Extremities: No clubbing, cyanosis or edema. +2 pedal pulses bilaterally. Skin: Warm and dry. Results & Data ([facility]) Vital Signs (Past 12 Hours) Vital Signs Temp Pulse Pulse Resp BP BP Pulse Ox 11/23/20 11:55 37.1 C 63 20 125/57 L 94 11/23/20 07:45 36.5 C 63 22 141/53 H 98 11/23/20 03:34 36.9 C 64 20 116/64 97 11/23/20 02:50 59 L 23 98 11/23/20 01:57 37.3 C 11/23/20 00:51 63 20 97
[2020-11-23] MEDS ORDERED: SIMETHICONE 80 MG CHEW PO PRN (14:21)
[2020-11-23] MEDS ORDERED: POLYETHYLENE (MIRALAX) 17 GM PACK PO PRN (14:23)
[2020-11-23] MEDS: ALUMINUM/MAGNESIUM SUSP 30 ML UDC PO PRN ×2 (14:26→23:53)
[2020-11-23] MEDS: cefTRIAXone SODIUM 2,000 MG in DEXTROSE 5% 50 ML IV SCH (14:29)
[2020-11-23] MEDS: ONDANSETRON INJ 2 MG/ML 2 ML VIAL IV PRN (15:09)
[2020-11-23] MEDS: AMIODARONE 200 MG TAB PO SCH (16:46)
[2020-11-23] MEDS: INSULIN GLARGINE SOLOSTAR 100 UNITS/ML 3 ML PEN SC SCH (16:49)
[2020-11-24] MEDS: HEPARIN SODIUM/DEXTROSE 25,000 UNITS/500 ML BAG IV SCH ×3 (00:28→21:12)
[2020-11-24] MEDS: NORMOSOL-R 1,000 ML IV SCH ×2 (00:29→10:18)
[2020-11-24] MEDS: metroNIDAZOLE 500 MG/100 ML BAG IV SCH ×4 (00:34→23:57)
[2020-11-24 04:47] LABS: Hematocrit (blood only) 39.2 % (37-47); Hemoglobin 11.7 g/dL (12.0-16.0); Mean Corpuscular Hemoglobin 27.8 pg (25-34); Mean Corpuscular Hgb Conc 29.8 g/dL (32-36); Mean Corpuscular Volume 93.1 fL (80-100); Mean Platelet Volume 11.7 fL (7.4-10.4); Platelet Count 245 K/uL (130-400); RDW Coefficient of Variation 15.7 % (11.5-14.5); RDW Standard Deviation 53.7 fL (36.4-46.3); Red Blood Count 4.21 M/uL (4.2-5.4)
[2020-11-24 05:01] LABS: Partial Thromboplastin Ratio 1.4; Partial Thromboplastin Time 40.2 Seconds (21.0-31.0)
[2020-11-24 05:06] LABS: BUN Creatinine Ratio 26.3 (10-20); Calcium 7.8 mg/dl (8.5-10.1); Creatinine Clr Calc Pharmacy 113.9 ml/min; Est GFR (African American) 104.8; Est GFR (Non-African American) 90.4; Magnesium 2.7 mg/dl (1.8-2.4); Potassium 4.1 mmol/L (3.5-5.1)
[2020-11-24 05:16] LABS: Phosphorus 1.4 mg/dl (2.5-4.9)
[2020-11-24] MEDS: INSULIN ASPART 100 UNITS/ML 3 ML PEN SC SCH ×4 (07:47→20:48)
[2020-11-24] MEDS: ALBUMIN 25% 12.5 GM/50 ML VIAL IV SCH ×3 (07:51→19:29)
[2020-11-24] MEDS: METOPROLOL TARTRATE 100 MG TAB PO SCH ×2 (07:56→19:31)
[2020-11-24] MEDS: AMIODARONE 200 MG TAB PO SCH ×2 (07:58→17:11)
[2020-11-24] MEDS ORDERED: POTASSIUM PHOS 3 MMOL/1 ML INFUSION IV STA (08:05)
--- NOTE | 2020-11-24 08:12 | Hospitalist Progress Note ---
Date of Service November 24, 2020 Assessment & Plan (1) Choledocholithiasis: (2) Ascending cholangitis: (3) Acute cholecystitis: -Patient presenting from home with reports of epigastric abdominal pain x 5 days -In the ED, CT ABD/pelvis shows findings are consistent with acute cholecystitis and could represent early gangrenous change -Severe sepsis on presentation with fever, tachycardia, hypotension, WBC 22K, lactic acid 2.5. BP improved after IVF, repeat lactate 1.3 -ERCP 11/19/2020: + Choledocholithiasis, ascending cholangitis, stents placed -S/P laparoscopic cholecystectomy 11/21/[address] Macdonald -On IV cefepime and IV Flagyl (day 3) -> switched to IV ceftriaxone and flagyl (given cultx) -Afebrile, WBC 10K -Febrile overnight (11/23) - repeat blood cultx ordered (4) Sepsis: -Resuscitated, resolved (5) E coli bacteremia: -2/4 blood cultures growing gram-negative bacilli/E. coli -Continue IV ceftriaxone and IV Flagyl -Repeat blood cultures - pending (6) UTI (urinary tract infection): -Urine culture growing pansensitive E. coli - was on IV cefepime , now ceftriaxone (7) Atrial flutter with rapid ventricular response: (8) NSVT (nonsustained ventricular tachycardia): -11/21/2020: Telemetry revealed episodes of SVT overnight, 0756: 25 beat run of V. tach, 0801: 7 beat run of V. tach and transitioned into A. fib with RVR -Cardiology consulted -Received amiodarone bolus followed by drip -Started on IV heparin (discussed with general surgery), warfarin started -Continue metoprolol -Possible precipitating factors: Sepsis, acute cholecystitis, ascending cholangitis, bacteremia, untreated LUZ MARIA, hypoxia / concern for PE - CT PE negative -echo - Pt converted to NSR, switched to PO amiodarone (9) Hypoxia: -On admission, patient hypoxic on room air at 80% -Currently requiring 4 L of oxygen via oxygen mask / BiPAP w/ naps and sleeping -CT chest without contrast on admission unrevealing of cause -History of pulmonary embolism anticoagulated on Coumadin, INR 1.5 on presentation. Initially unable to do CTA chest due to SHAYNE and anticoagulation was held due to procedures. BL LE Dopplers negative for DVT. -Given ongoing hypoxia and arrhythmia, CTA chest was performed (renal function improved) - Negative for pulmonary embolism. - Hypoxia and hypercarbia secondary Obesity hypoventilation syndrome after surgery and (untreated) LUZ MARIA (10) SHAYNE (acute kidney injury): -Resolved -Creatinine 1.7 on presentation (baseline ~ 0.9). Creatinine 0.6 today -Likely prerenal due to sepsis -Continued IVF, follow renal functions, stopped IVF now -Continue to hold lisinopril (11) Left anterior fascicular block: (12) Elevated troponin: -Troponin 0.067 -> 0.06 -> 0.03 -Likely due to demand ischemia in the setting of sepsis -EKG on admission showed a left anterior fascicular block. Appeared to be new given no recent EKGs for comparison -No reports of chest pain (13) Lymphedema, not elsewhere classified: -Managed with diuretics, which were held on admission due to SHAYNE and sepsis -Continue to hold diuretics for now (14) History of pulmonary embolism: -Anticoagulation as mentioned above -restarted coumadin, heparin bridge (15) History of paroxysmal atrial tachycardia: (16) History of paroxysmal supraventricular tachycardia: -Continue metoprolol (17) DM type 2 (diabetes mellitus, type 2): -Hgb A1c 6.8 05/2020 -Lantus/NovoLog -Glycemic pharmacy consult (18) HTN (hypertension): -Lisinopril held on admission due to hypotension/SHAYNE. SHAYNE has improved however BP remains borderline, continue lisinopril -Continue metoprolol as BP allows due to history of PAT and NSVT and now A. fib with RVR and NSVT (19) History of breast cancer: -History of breast cancer s/p left mastectomy -CT chest showing A few small right breast nodules measure up to 13 mm. Nonemergent mammogram follow-up recommended (20) LUZ MARIA (obstructive sleep apnea): -Noncompliant with CPAP -Encouraged follow-up with sleep medicine (21) DVT prophylaxis: -On IV heparin, restarted counadin Admission and Anticipated Discharge Date Admission Date: November 19, 2020 Subjective Pt seen in follow up of acute ascending cholengitis and acute cholecystitis, gram negat. bacteremia, Afib, acte hypoxic hypercarb. resp. failure 2/2 Obesity hypoventilation syndrome after surgery, LUZ MARIA Currently s/p lap. [place]. Converted to NSR. Needs bipap w/ napping/ sleeping. Pt is awake, alert and oriented, on suppl. O2 via NC. She is sitting in a chair but appears fatigued. Denies chest pain, shortness of breath. Has some abd. tenderness at the surgical site. Review of Systems Review of Systems: ROS per HPI, all other systems reviewed and negative Constitutional: + fatigue and + weakness (generalized); no fever and no chills Respiratory: + dyspnea (much improved); no cough Gastrointestinal: + abdominal pain (some discomfort at the surgical site); no vomiting Physical Exam Physical Exam: Constitutional: WD/WN, vitals as above + obese; no acute distress Eyes: PERRL, EOMI, conjunctivae normal, anicteric sclerae Neck: thick Respiratory: normal respiratory effort, lungs clear to auscultation, on suppl. O2 via NC Cardiovascular: Rate/Rhythm: regular rhythm and Vessels: normal peripheral pulses Extremities: + edema (+2 edema BLE) Gastrointestinal (Abdomen): Inspection/Auscultation: normal bowel sounds Percussion/Palpation: + abdomen tender (RUQ, s/p surgery) and abdomen soft, obese, abdomen not rigid Musculoskeletal: no cyanosis or clubbing, extremities motor strength 5/5 Skin: no rashes, warm and dry Neurologic: PERRL, EOMI, no face palsy, no dysarthria, moves extremities Psychiatric: A+Ox3, euthymic affect Results & Data Results & Data ([facility]) Vital Signs (Past 12 Hours) Vital Signs Temp Pulse Pulse Resp BP Pulse Ox 11/24/20 04:02 36.8 C 69 22 158/72 H 93 11/24/20 00:22 71 11/23/20 23:52 36.6 C 66 16 155/76 H 93 11/23/20 22:15 70 30 H 95 Laboratory Results 11/24/20 11/24/20 11/24/20 Range/Units 07:27 04:28 04:28 WBC (4.8-10.8) K/uL RBC (4.2-5.4) M/uL Hgb (12.0-16.0) g/dL Hct (37-47) % MCV (80-100) fL MCH (25-34) pg MCHC (32-36) g/dL RDW Std Deviation (36.4-46.3) fL RDW Coeff of [place] (11.5-14.5) % Plt Count (130-400) K/uL MPV (7.4-10.4) fL APTT 40.2 H (21.0-31.0) Seconds PTT Ratio 1.4 Sodium 141 (136-145) mmol/L Potassium 4.1 (3.5-5.1) mmol/L Chloride 108 H (98-107) mmol/L Carbon Dioxide 33 H (21-32) mmol/L Anion Gap 0 L (3-11) BUN 14 (7-18) mg/dl Creatinine 0.54 L (0.6-1.2) mg/dl Est Cr Clr Drug Dosing 113.9 ml/min Est GFR ( Amer) 104.8 Est GFR (Non-Af Amer) 90.4 BUN/Creatinine Ratio 26.3 H (10-20) Glucose 147 H (70-99) mg/dl POC Glucose 138 H (70-99) mg/dl Calcium 7.8 L (8.5-10.1) mg/dl Phosphorus 1.4 L* (2.5-4.9) mg/dl Magnesium 2.7 H (1.8-2.4) mg/dl 11/24/20 11/23/20 11/23/20 Range/Units 04:28 20:31 16:26 WBC 9.30 (4.8-10.8) K/uL RBC 4.21 (4.2-5.4) M/uL Hgb 11.7 L (12.0-16.0) g/dL Hct 39.2 (37-47) % MCV 93.1 (80-100) fL MCH 27.8 (25-34) pg MCHC 29.8 L (32-36) g/dL RDW Std Deviation 53.7 H (36.4-46.3) fL RDW Coeff of [place] 15.7 H (11.5-14.5) % Plt Count 245 (130-400) K/uL MPV 11.7 H (7.4-10.4) fL APTT (21.0-31.0) Seconds PTT Ratio Sodium (136-145) mmol/L Potassium (3.5-5.1) mmol/L Chloride (98-107) mmol/L Carbon Dioxide (21-32) mmol/L Anion Gap (3-11) BUN (7-18) mg/dl Creatinine (0.6-1.2) mg/dl Est Cr Clr Drug Dosing ml/min Est GFR ( Amer) Est GFR (Non-Af Amer) BUN/Creatinine Ratio (10-20) Glucose (70-99) mg/dl POC Glucose 151 H 140 H (70-99) mg/dl Calcium (8.5-10.1) mg/dl Phosphorus (2.5-4.9) mg/dl Magnesium (1.8-2.4) mg/dl 11/23/20 Range/Units 11:32 WBC (4.8-10.8) K/uL RBC (4.2-5.4) M/uL Hgb (12.0-16.0) g/dL Hct (37-47) % MCV (80-100) fL MCH (25-34) pg MCHC (32-36) g/dL RDW Std Deviation (36.4-46.3) fL RDW Coeff of [place] (11.5-14.5) % Plt Count (130-400) K/uL MPV (7.4-10.4) fL APTT (21.0-31.0) Seconds PTT Ratio Sodium (136-145) mmol/L Potassium (3.5-5.1) mmol/L Chloride (98-107) mmol/L Carbon Dioxide (21-32) mmol/L Anion Gap (3-11) BUN (7-18) mg/dl Creatinine (0.6-1.2) mg/dl Est Cr Clr Drug Dosing ml/min Est GFR ( Amer) Est GFR (Non-Af Amer) BUN/Creatinine Ratio (10-20) Glucose (70-99) mg/dl POC Glucose 217 H (70-99) mg/dl Calcium (8.5-10.1) mg/dl Phosphorus (2.5-4.9) mg/dl Magnesium (1.8-2.4) mg/dl Medications Administered Current Inpatient Medications Acetaminophen (Acetaminophen 325 Mg Tab) 650 mg PO Q4H PRN PRN Reason: Pain or Fever Stop: 12/19/20 22:07 Last Admin: 11/21/20 00:22 Dose: 650 mg Documented by: Al Hydrox/Mg Hydrox/Simethicone (Aluminum/Magnesium Susp 30 Ml Udc) 15 ml PO Q6H PRN PRN Reason: Indigestion Stop: 12/23/20 14:20 Last Admin: 11/23/20 23:53 Dose: 15 ml Documented by: Amiodarone HCl (Amiodarone 200 Mg Tab) 400 mg PO BIDM [facility] Stop: 12/23/20 16:59 Last Admin: 11/24/20 07:58 Dose: 400 mg Documented by: Cyanocobalamin (Cyanocobalamin 500 Mcg Tablet (Vitamin B-12)) 1,000 mcg PO DAILY [facility] Stop: 12/21/20 08:59 Last Admin: 11/23/20 08:32 Dose: 1,000 mcg Documented by: Dextrose (Dextrose 50% 50 Ml Syringe) 25 - 50 ml IV UD PRN; Protocol PRN Reason: Hypoglycemia Protocol Stop: 12/19/20 22:07 Glucagon (Glucagon For Inj 1 Mg Vial) 1 mg SQ UD PRN; Protocol PRN Reason: Hypoglycemia Protocol Stop: 12/19/20 22:07 Glucose (Glucose 10 Tabs/Tube) 4 - 8 tabs PO UD PRN; Protocol PRN Reason: Hypoglycemia Protocol Stop: 12/19/20 22:07 Glucose (Glucose 40% Gel 15 Gm Tube) 15 - 30 gm PO UD PRN; Protocol PRN Reason: Hypoglycemia Protocol Stop: 12/19/20 22:07 Metronidazole (Flagyl) 500 mg in 100 mls @ 100 mls/hr IV Q8H [facility] Stop: 11/30/20 00:00 Last Infusion: 11/24/20 01:43 Dose: Infused Documented by: Heparin Sodium/Dextrose (Heparin Sodium/Dextrose) 25,000 units in 500 mls @ 38 mls/hr IV .[id number] [facility]; Protocol Stop: 12/21/20 09:44 Last Titration: 11/24/20 07:01 Dose: 1,900 units/hr, 38 mls/hr Documented by: Ceftriaxone Sodium 2,000 mg/ (Dextrose) 70 mls @ 140 mls/hr IV Q24H [facility] Stop: 12/05/20 13:59 Last Infusion: 11/23/20 15:09 Dose: Infused Documented by: Parenteral Electrolytes (Normosol-R) 1,000 mls @ 100 mls/hr IV .Q10H [facility] Stop: 12/21/20 22:59 Last Admin: 11/24/20 00:29 Dose: 100 mls/hr Documented by: Albumin Human (Albumin 25%) 12.5 gm in 50 mls @ 50 mls/hr IV TID [facility] Stop: 11/25/20 04:59 Last Admin: 11/24/20 07:51 Dose: 50 mls/hr Documented by: Potassium Phosphate 9 mmol/ (Sodium Chloride) 253 mls @ 88 mls/hr IV ONE ONE Stop: 11/24/20 11:22 Insulin Aspart (Insulin Aspart 100 Units/Ml 3 Ml Pen) 0 units SC ACHS [facility] Stop: 12/22/20 16:29 Last Admin: 11/24/20 07:47 Dose: 5 units Documented by: Insulin Glargine (Insulin Glargine Solostar 100 Units/Ml 3 Ml Pen) 50 units SC QDD [facility] Stop: 12/21/20 16:29 Last Admin: 11/23/20 16:49 Dose: 50 units Documented by: Metoprolol Tartrate (Metoprolol Tartrate 100 Mg Tab) 100 mg PO BID [facility] Stop: 12/19/20 22:07 Last Admin: 11/24/20 07:56 Dose: 100 mg Documented by: Miscellaneous (Carbohydrates For Hypoglycemia ) 15 - 30 gm PO UD PRN PRN Reason: Hypoglycemia Protocol Stop: 12/19/20 22:07 Miscellaneous Information (Pharmacy Glycemic Mgmt Consult) 1 ea N/A UD PRN; Protocol PRN Reason: Consult Stop: 12/19/20 22:17 Morphine Sulfate (Morphine Sulfate 4 Mg/Ml 1 Ml Carp\Vial) 4 mg IV Q4H PRN PRN Reason: Pain Stop: 12/03/20 22:07 Ondansetron HCl (Ondansetron Inj 2 Mg/Ml 2 Ml Vial) 4 mg IV Q6H PRN PRN Reason: Nausea Stop: 12/19/20 22:07 Last Admin: 11/23/20 15:09 Dose: 4 mg Documented by: Oxycodone HCl (Oxycodone Hcl Ir 5 Mg Tab (Immediate Release)) 5 mg PO Q4H PRN PRN Reason: Moderate Pain Stop: 12/05/20 11:06 Polyethylene Glycol (Polyethylene (Miralax) 17 Gm Pack) 17 gm PO DAILY PRN PRN Reason: Constipation Stop: 12/23/20 14:22 Simethicone (Simethicone 80 Mg Chew) 80 mg PO Q6H PRN PRN Reason: bloating Stop: 12/23/20 14:20 Warfarin Sodium (Warfarin Sod 6 Mg Tab) 6 mg PO DAILY@1600 TAYO Stop: 12/24/20 15:59 (1) Sepsis Sepsis acute organ dysfunction status: unspecified Sepsis type: sepsis due to unspecified organism Qualified Code(s): A41.9 - Sepsis, unspecified organism
[2020-11-24] MEDS ORDERED: POTASSIUM PHOSPHATE 9 MMOL in SODIUM CHLORIDE 0.9% 250 ML IV ONE (08:30)
--- NOTE | 2020-11-24 09:26 | Surgery Progress Note ---
Date of Service pt is doing better, pt feels better, tolerated diet, no nausea, no vomiting, no fever, YURI 600ml, clear, BM X 1 November 24, 2020 Assessment & Plan (1) Sepsis: (2) Cholangitis: pt is a 80 year-old female who presents to Er with 3-4 days history epigastric pain with back pain, IMP: sepsis, cholangitis, acute cholecystitis, cholelithiasis, acute renal dysfunction Plan, hospitalist will admit pt to hospital, consult GI doctor for possible emergent ERCP for obstructed CBD stone, IV fluid, IV antibiotic, U/S study for gallbladder and HIDA scan tomorrow, repeat labs CBC, CMP in morning, Thanks, possible do laparoscopic cholecystectomy in 1-2 days so, pt and her agr ee with the plan, D/W ER attending, will F/U, Thanks, 11/21/2020 9:53AM S/P laparoscopic subtotal cholecystectomy, I did called pt's about OR finding and the procedure pt had after surgery yesterday, I answered all questions, POD 1, no active bleeding signs, developed A-Fib, D/W hospitalist, IV fluid, CT scan chest to R/O recurrent PE, pt can have heparin treatment if conform diagnosis: recurrent PE. will F/U, advertising consultant surgeon will cover this weekend Thanks, 11/24/2020 9:27AM F/U S/P lap subtotal cholecystectomy, POD 4 doing better, I update information about OR finding and the procedure pt had, pt understood, I answered all questions, normal WBC, continue treatment, keep the YURI drainage, OOB, will F/U, (3) Acute cholecystitis due to biliary calculus: Admission and Anticipated Discharge Date Admission Date: November 19, 2020 Supervising Physician Co-Signing Physician Notes Patient seen and examined, labs and imaging reviewed, agree with above. Status post ERCP for cholangitis followed by laparoscopic subtotal cholecystectomy with drain placement for gangrenous cholecystitis. She was transferred out of the ICU yesterday and has not had any significant hypoxia or arrhythmias. Overall she feels better than she did a few days ago. On exam she is afebrile with stable vitals. Her abdomen is soft, appropriately tender to palpation, incisions clean dry and intact. YURI with serosanguineous output. Labs reviewed with normal white blood cell count and LFTs. CT scan from the other night was reviewed, the appearance of the gallbladder bed is consistent with a subtotal cholecystectomy. At this point there is no evidence that this is an abscess, but will take a few days to mature. For now would recommend continuing IV antibiotics, diet as tolerated, continue YURI drain. Dr. Macdonald will be back tomorrow. Subjective Patient seen and examined, chart reviewed. States that she is unable to tell if she is feeling any better from admission currently denies any cardiac complaints of chest pain, shortness of breath, palpitations, lightheadedness, dizziness or syncope. Telemetry reviewed: Normal sinus rhythm without recurrences of A. fib. Physical Exam Constitutional: WD/WN, vitals as above well developed and well nourished Eyes: PERRL, conjunctivae normal, anicteric sclerae ENMT: external ear and nose normal, oropharynx normal Neck: trachea midline, no thyromegaly Respiratory: normal respiratory effort, lungs clear to auscultation normal respiratory effort Cardiovascular: RRR, no murmur, no edema Rate/Rhythm: + irregularly irregular Heart Sounds: normal S1 and normal S2 Gastrointestinal (Abdomen): Percussion/Palpation: + abdomen tender and abdomen soft mild tenderness at RUQ, no rebound pain, no distend, all incisions intact, no redness, no drainage, YURI intact, Musculoskeletal: no cyanosis or clubbing, extremities motor strength 5/5 Skin: no rashes, warm and dry Neurologic: awake Psychiatric: Orientation: alert and oriented x 3 Results & Data ([facility]) Vital Signs (Past 12 Hours) Vital Signs Temp Pulse Pulse Resp BP BP Pulse Ox 11/24/20 08:28 36.7 C 73 20 151/77 H 95 11/24/20 08:00 71 11/24/20 04:02 36.8 C 69 22 158/72 H 93 11/24/20 00:22 71 11/23/20 23:52 36.6 C 66 16 155/76 H 93 11/23/20 22:15 70 30 H 95 Laboratory Results Abnormal lab results 11/23/20 11/23/20 11/23/20 Range/Units 11:32 16:26 20:31 Hgb (12.0-16.0) g/dL MCHC (32-36) g/dL RDW Std Deviation (36.4-46.3) fL RDW Coeff of [place] (11.5-14.5) % MPV (7.4-10.4) fL APTT (21.0-31.0) Seconds Chloride (98-107) mmol/L Carbon Dioxide (21-32) mmol/L Anion Gap (3-11) Creatinine (0.6-1.2) mg/dl BUN/Creatinine Ratio (10-20) Glucose (70-99) mg/dl POC Glucose 217 H 140 H 151 H (70-99) mg/dl Calcium (8.5-10.1) mg/dl Phosphorus (2.5-4.9) mg/dl Magnesium (1.8-2.4) mg/dl 11/24/20 11/24/20 11/24/20 Range/Units 04:28 04:28 04:28 Hgb 11.7 L (12.0-16.0) g/dL MCHC 29.8 L (32-36) g/dL RDW Std Deviation 53.7 H (36.4-46.3) fL RDW Coeff of [place] 15.7 H (11.5-14.5) % MPV 11.7 H (7.4-10.4) fL APTT 40.2 H (21.0-31.0) Seconds Chloride 108 H (98-107) mmol/L Carbon Dioxide 33 H (21-32) mmol/L Anion Gap 0 L (3-11) Creatinine 0.54 L (0.6-1.2) mg/dl BUN/Creatinine Ratio 26.3 H (10-20) Glucose 147 H (70-99) mg/dl POC Glucose (70-99) mg/dl Calcium 7.8 L (8.5-10.1) mg/dl Phosphorus 1.4 L* (2.5-4.9) mg/dl Magnesium 2.7 H (1.8-2.4) mg/dl 11/24/20 Range/Units 07:27 Hgb (12.0-16.0) g/dL MCHC (32-36) g/dL RDW Std Deviation (36.4-46.3) fL RDW Coeff of [place] (11.5-14.5) % MPV (7.4-10.4) fL APTT (21.0-31.0) Seconds Chloride (98-107) mmol/L Carbon Dioxide (21-32) mmol/L Anion Gap (3-11) Creatinine (0.6-1.2) mg/dl BUN/Creatinine Ratio (10-20) Glucose (70-99) mg/dl POC Glucose 138 H (70-99) mg/dl Calcium (8.5-10.1) mg/dl Phosphorus (2.5-4.9) mg/dl Magnesium (1.8-2.4) mg/dl CT ANGIOGRAM OF THE CHEST CLINICAL HISTORY: Chest pain. History of laparoscopic cholecystectomy COMPARISON STUDY: Earlier in the day TECHNIQUE: Following the IV administration of 118 mL of [id number]-320, CT angiogram of the thorax was performed from the thoracic inlet to the lung bases utilizing the pulmonary embolus protocol. Images are reviewed in the axial, sagittal, and coronal planes. IV contrast was administered without complication. MIP imaging was performed. A dose lowering technique was utilized adhering to the principles of ALARA. CT DOSE: FINDINGS: Paratracheal lymph nodes are borderline enlarged. There is mild dilatation of the ascending thoracic aorta which measures 37 mm the level of the main pulmonary artery The study is compromised due to respiratory motion artifact. No central emboli are visualized. Evaluation of peripheral branches is limited. There are bilateral pleural effusions. There is bilateral lower lobe atelectasis/consolidation. The heart is enlarged with coronary artery calcifications. 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 IMPRESSION: 1. Motion compromised study 2. Cardiomegaly with coronary artery calcifications 3. Mild dilatation of the ascending thoracic aorta measuring 37 mm 4. No central emboli identified. Peripheral branches cannot be technically assessed due to motion artifact. 5. Bilateral pleural effusions with lower lobe atelectasis/consolidation 6. Tracheomalacia 7. Borderline enlarged mediastinal lymph nodes (1) Sepsis Sepsis acute organ dysfunction status: unspecified Sepsis type: sepsis due to unspecified organism Qualified Code(s): A41.9 - Sepsis, unspecified organism
[2020-11-24] MEDS: oxyCODONE HCL IR 5 MG TAB (IMMEDIATE RELEASE) PO PRN (09:39)
[2020-11-24] MEDS: CYANOCOBALAMIN 500 MCG TABLET (VITAMIN B-12) PO SCH (10:17)
--- NOTE | 2020-11-24 11:45 | Pharmacy Report ---
Pharmacy Glycemic Short Note 2 - Date of Service November 24, 2020 - Glycemic Short BSG Results (Last 24 hours): 11/23/20 11/23/20 11/24/20 16:26 20:31 04:28 Glucose 147 H POC Glucose 140 H 151 H 11/24/20 11/24/20 07:27 11:23 Glucose POC Glucose 138 H 153 H ASSESSMENT: 11/24: * Patient received total of 69 units of insulin yesterday, of which 50 were basal insulin * Fasting BSG 147 mg/dL - continue same basal * BSGs yesterday improving, continue same CF/CR PLAN FOR INPATIENT GLYCEMIC CONTROL: * Hold outpatient oral diabetes medications * Basal insulin * Lantus 50 units daily * Bolus insulin * NovoLog per scale ACHS or Q6hrs while NPO * Goal Range: Low 110 mg/dL - High 140 mg/dL * Correction Factor: 15 mg/dL/unit * Nutritional / Prandial insulin per carb ratio of 1 unit per 4 grams CHO consumed PLAN FOR DISCHARGE: * Patient's HbA1C is reasonable given her age and comorbidities. * Home insulin regimen consists of all basal insulin. Regimens like this can sometimes cause more frequent hypoglycemia, especially if diet is changing. Ideally would prefer a 50/50 split of insulin between basal/prandial. * Would ensure patient is not experiencing frequent hypoglycemia outpatient if outpatient regimen to be continued
--- NOTE | 2020-11-24 13:25 | Cardiology Progress Note ---
Date of Service November 24, 2020 Assessment & Plan (1) Atrial flutter with rapid ventricular response: (2) NSVT (nonsustained ventricular tachycardia): (3) Moderate aortic stenosis: (4) HTN (hypertension): (5) History of paroxysmal supraventricular tachycardia: (6) History of paroxysmal atrial tachycardia: (7) Acute cholecystitis: (8) Lymphedema, not elsewhere classified: (9) History of pulmonary embolism: (10) DM type 2 (diabetes mellitus, type 2): (11) SHAYNE (acute kidney injury): Converted to sinus rhythm. Continue current dose of oral amiodarone Heparin bridge. Coumadin restarted Should also be continued on metoprolol. Aortic stenosis is unchanged and remains moderate. Septal wall flattening consistent with RV pressure/volume overload also seen on echocardiogram. Okay to DC from telemetry or to home from a cardiac standpoint. Admission and Anticipated Discharge Date Admission Date: November 19, 2020 Subjective Patient seen and examined, chart reviewed. Patient out of bed in chair states that she feels comfortable. Unsure if her breathing has improved. Denies chest pain, palpitations or dizziness. Telemetry reviewed: Normal sinus rhythm without recurrences of atrial fibrillation. Review of Systems Review of Systems: All systems reviewed & are unremarkable except as noted in HPI & below Physical Exam Physical Exam: General: Awake, alert and oriented x 3. No acute distress. HEENT: Normocephalic, atraumatic. Pupils equal, round and reactive to light and accommodation. Extraocular muscles are intact. Anicteric sclera. Moist mucous membranes. Neck: No JVD. No bruit. Cardiovascular: Regular. Positive S-4. Normal S-1 and S-2. No S-3. No murmurs or rubs. Pulmonary: Clear to auscultation B/L. No rales, rhonchi or wheezing Abdomen: Bowel sounds x 4, soft. No rebound, guarding or tenderness. No organomegaly. Extremities: No clubbing, cyanosis or edema. +2 pedal pulses bilaterally. Skin: Warm and dry. Results & Data ([facility]) Vital Signs (Past 12 Hours) Vital Signs Temp Pulse Pulse Resp BP BP Pulse Ox 11/24/20 11:22 36.6 C 57 L 20 141/61 H 96 11/24/20 08:28 36.7 C 73 20 151/77 H 95 11/24/20 08:00 71 11/24/20 04:02 36.8 C 69 22 158/72 H 93
[2020-11-24 13:28] LABS: Partial Thromboplastin Ratio 1.2; Partial Thromboplastin Time 33.2 Seconds (21.0-31.0)
[2020-11-24] MEDS ORDERED: HEPARIN IV BOLUS 3,000 UNITS in SYRINGE 0 ML IV ONE (13:45)
[2020-11-24] MEDS: cefTRIAXone SODIUM 2,000 MG in DEXTROSE 5% 50 ML IV SCH (14:06)
[2020-11-24] MEDS: WARFARIN SOD 6 MG TAB PO SCH (16:10)
[2020-11-24] MEDS: INSULIN GLARGINE SOLOSTAR 100 UNITS/ML 3 ML PEN SC SCH (17:11)
[2020-11-24 20:45] LABS: Partial Thromboplastin Ratio 2.3
[2020-11-24 21:06] LABS: Partial Thromboplastin Time 63.8 Seconds (21.0-31.0)
[2020-11-25] MEDS: ALUMINUM/MAGNESIUM SUSP 30 ML UDC PO PRN (03:36)
[2020-11-25] MEDS: oxyCODONE HCL IR 5 MG TAB (IMMEDIATE RELEASE) PO PRN (03:36)
[2020-11-25] MEDS: HEPARIN SODIUM/DEXTROSE 25,000 UNITS/500 ML BAG IV SCH ×3 (03:55→23:50)
[2020-11-25] MEDS ORDERED: LORazepam 0.5 MG TAB PO STA (05:49)
[2020-11-25 07:44] LABS: Hematocrit (blood only) 41.3 % (37-47); Hemoglobin 12.2 g/dL (12.0-16.0); Mean Corpuscular Hemoglobin 27.5 pg (25-34); Mean Corpuscular Hgb Conc 29.5 g/dL (32-36); Mean Platelet Volume 11.2 fL (7.4-10.4); Platelet Count 315 K/uL (130-400); RDW Coefficient of Variation 15.4 % (11.5-14.5); RDW Standard Deviation 52.8 fL (36.4-46.3); Red Blood Count 4.44 M/uL (4.2-5.4); White Blood Count 10.07 K/uL (4.8-10.8)
[2020-11-25 07:45] LABS: Base Excess ABG 4.7 mEq/L (-9-1.8); HCO3 ABG 34 mmol/L (19-24); Oxygen Saturation ABG 93.4 % (90-95); PCO2 ABG 77 mmHg (35-46); PO2 ABG 72 mmHg (80-95); pH ABG 7.26 (7.35-7.45)
[2020-11-25 07:46] LABS: Allen Test Pos (Pos)
--- NOTE | 2020-11-25 08:06 | XRay Report ---
XR chest 1V portable CLINICAL HISTORY: shortness of breath, hypoxia COMPARISON STUDY: 11/22/2020 FINDINGS: The heart is enlarged. There are are extensive bilateral pulmonary airspace opacities. Ther e are small pleural effusions. Diagnostic considerations include pulmonary edema, versus a bilateral pneumonia.[ IMPRESSION: 1. Cardiomegaly and interval development of extensive bilateral pulmonary airspace opacities. Small b ilateral pleural effusions. ACT 112: Negative or not required by law. Electronically signed by: Jasper Bennett M.D. 11/25/2020 8:04 AM
--- NOTE | 2020-11-25 08:08 | Hospitalist Progress Note ---
Date of Service November 25, 2020 Assessment & Plan (1) Choledocholithiasis: (2) Ascending cholangitis: (3) Acute cholecystitis: -Patient presenting from home with reports of epigastric abdominal pain x 5 days -In the ED, CT ABD/pelvis shows findings are consistent with acute cholecystitis and could represent early gangrenous change -Severe sepsis on presentation with fever, tachycardia, hypotension, WBC 22K, lactic acid 2.5. BP improved after IVF, repeat lactate 1.3 -ERCP 11/19/2020: + Choledocholithiasis, ascending cholangitis, stents placed -S/P laparoscopic cholecystectomy 11/21/[address] Macdonald -On IV cefepime and IV Flagyl (day 3) -> switched to IV ceftriaxone and flagyl (given cultx) -Afebrile, WBC 10K -Febrile overnight (11/23) - repeat blood cultx ordered (4) Sepsis: -Resuscitated, resolved (5) E coli bacteremia: -2/4 blood cultures growing gram-negative bacilli/E. coli -Continue IV ceftriaxone and IV Flagyl -Repeat blood cultures - NGTD (6) UTI (urinary tract infection): -Urine culture growing pansensitive E. coli - was on IV cefepime , now ceftriaxone (7) Atrial flutter with rapid ventricular response: (8) NSVT (nonsustained ventricular tachycardia): -11/21/2020: Telemetry revealed episodes of SVT overnight, 0756: 25 beat run of V. tach, 0801: 7 beat run of V. tach and transitioned into A. fib with RVR -Cardiology consulted -Received amiodarone bolus followed by drip -Started on IV heparin (discussed with general surgery), warfarin started -Continue metoprolol -Possible precipitating factors: Sepsis, acute cholecystitis, ascending cholangitis, bacteremia, untreated LUZ MARIA, hypoxia / concern for PE - CT PE negative -echo reviewed - Pt converted to NSR, switched to PO amiodarone (9) Hypoxia: -On admission, patient hypoxic on room air at 80% -Currently requiring 4 L of oxygen via oxygen mask / BiPAP w/ naps and sleeping -CT chest without contrast on admission unrevealing of cause -History of pulmonary embolism anticoagulated on Coumadin, INR 1.5 on presentation. Initially unable to do CTA chest due to SHAYNE and anticoagulation was held due to procedures. BL LE Dopplers negative for DVT. -Given ongoing hypoxia and arrhythmia, CTA chest was performed (renal function improved) - Negative for pulmonary embolism. - Hypoxia and hypercarbia secondary Obesity hypoventilation syndrome after surgery and (untreated) LUZ MARIA - pt again significantly hypoxic this AM (11/25/20) - overnight restless and received pain meds and ativan - stat ABG ordered and CXR - respiratory acidosis again noted, CXR c/s pulm. edema, poss. pna - IV lasix ordered, BiPAP, pt responded well, now on NC again (10) SHAYNE (acute kidney injury): -Resolved -Creatinine 1.7 on presentation (baseline ~ 0.9). Creatinine 0.6 today -Likely prerenal due to sepsis -Continued IVF, follow renal functions, stopped IVF now -Continue to hold lisinopril (11) Left anterior fascicular block: (12) Elevated troponin: -Troponin 0.067 -> 0.06 -> 0.03 -Likely due to demand ischemia in the setting of sepsis -EKG on admission showed a left anterior fascicular block. Appeared to be new given no recent EKGs for comparison -No reports of chest pain (13) Lymphedema, not elsewhere classified: -Managed with diuretics, which were held on admission due to SHAYNE and seps is -Continue to hold diuretics for now (14) History of pulmonary embolism: -Anticoagulation as mentioned above -restarted coumadin, heparin bridge (15) History of paroxysmal atrial tachycardia: (16) History of paroxysmal supraventricular tachycardia: -Continue metoprolol (17) DM type 2 (diabetes mellitus, type 2): -Hgb A1c 6.8 05/2020 -Lantus/NovoLog -Glycemic pharmacy consult (18) HTN (hypertension): -Lisinopril held on admission due to hypotension/SHAYNE. SHAYNE has improved however BP remains borderline, continue lisinopril -Continue metoprolol as BP allows due to history of PAT and NSVT and now A. fib with RVR and NSVT (19) History of breast cancer: -History of breast cancer s/p left mastectomy -CT chest showing A few small right breast nodules measure up to 13 mm. Nonemergent mammogram follow-up recommended (20) LUZ MARIA (obstructive sleep apnea): -Noncompliant with CPAP -Encouraged follow-up with sleep medicine (21) DVT prophylaxis: -On IV heparin, restarted counadin Admission and Anticipated Discharge Date Admission Date: November 19, 2020 Subjective Pt seen in follow up of acute ascending cholengitis and acute cholecystitis, gram negat. bacteremia, Afib, acte hypoxic hypercarb. resp. failure 2/2 Obesity hypoventilation syndrome after surgery, LUZ MARIA Currently s/p lap. [place]. Converted to NSR. Needs bipap w/ napping/ sleeping. Overnight pt more restless and taking her bipap off. received pain meds and ativan early in the morning/overnight. Hypoxic to 85%. Currently back on bipap and calm no complaints at this time. She is awake and able to answer orientation questions appropriately. Stat ABG and CXR ordered. Pt's updated over the phone this AM (11/25/2020). Update: resp. acidosis, pulm. edema - bipap and IV lasix given, now pt back alert and oriented and on NC Review of Systems Review of Systems: All systems reviewed & are unremarkable except as noted in HPI & below ROS per HPI, all other systems reviewed and negative Constitutional: + fatigue and + weakness (generalized); no fever and no chills Respiratory: + dyspnea (pt denies dyspnea but requires O2 support); no cough Cardiovascular: no chest pain and no palpitations Gastrointestinal: + abdominal pain (some discomfort at the surgical site); no vomiting Physical Exam Physical Exam: Constitutional: WD/WN, vitals as above + obese; no acute distress Eyes: PERRL, EOMI, conjunctivae normal, anicteric sclerae Neck: thick Respiratory: normal respiratory effort, lungs clear to auscultation, on suppl. O2 via NC Cardiovascular: Rate/Rhythm: regular rhythm and Vessels: normal peripheral pulses Extremities: + edema (+2 edema BLE) Gastrointestinal (Abdomen): Inspection/Auscultation: normal bowel sounds Percussion/Palpation: + abdomen tender (RUQ, s/p surgery) and abdomen soft, o bese, abdomen not rigid Musculoskeletal: no cyanosis or clubbing, extremities motor strength 5/5 Skin: no rashes, warm and dry Neurologic: PERRL, EOMI, no face palsy, no dysarthria, moves extremities Psychiatric: A+Ox3, euthymic affect Results & Data Results & Data ([facility]) Vital Signs (Past 12 Hours) Vital Signs Temp Pulse Pulse Resp BP Pulse Ox 11/25/20 07:10 36.6 C 73 21 166/71 H 96 11/25/20 07:06 72 24 95 11/25/20 03:25 37.0 C 61 20 172/78 H 95 11/24/20 23:20 36.7 C 59 L 21 179/69 H 96 11/24/20 22:22 55 L 28 H 96 Laboratory Results 11/25/20 11/25/20 11/25/20 Range/Units 15:44 11:23 07:31 WBC (4.8-10.8) K/uL RBC (4.2-5.4) M/uL Hgb (12.0-16.0) g/dL Hct (37-47) % MCV (80-100) fL MCH (25-34) pg MCHC (32-36) g/dL RDW Std Deviation (36.4-46.3) fL RDW Coeff of [place] (11.5-14.5) % Plt Count (130-400) K/uL MPV (7.4-10.4) fL PT (9.0-12.0) Seconds INR (0.9-1.1) APTT (21.0-31.0) Seconds PTT Ratio ABG pH 7.26 L (7.35-7.45) ABG pCO2 77 H (35-46) mmHg ABG pO2 72 L (80-95) mmHg ABG HCO3 34 H (19-24) mmol/L ABG O2 Saturation 93.4 (90-95) % ABG Base Excess 4.7 H (-9-1.8) mEq/L Rene Test Pos (Pos) Barometric Pressure 738.0 mm/Hg Oxygen Given 40% FIO2 Sodium (136-145) mmol/L Potassium (3.5-5.1) mmol/L Chloride (98-107) mmol/L Carbon Dioxide (21-32) mmol/L Anion Gap (3-11) BUN (7-18) mg/dl Creatinine (0.6-1.2) mg/dl Est Cr Clr Drug Dosing ml/min Est GFR ( Amer) Est GFR (Non-Af Amer) BUN/Creatinine Ratio (10-20) Glucose (70-99) mg/dl POC Glucose 124 H 130 H (70-99) mg/dl Calcium (8.5-10.1) mg/dl Phosphorus (2.5-4.9) mg/dl Magnesium (1.8-2.4) mg/dl 11/25/20 11/25/20 11/25/20 Range/Units 07:25 07:25 07:25 WBC 10.07 (4.8-10.8) K/uL RBC 4.44 (4.2-5.4) M/uL Hgb 12.2 (12.0-16.0) g/dL Hct 41.3 (37-47) % MCV 93.0 (80-100) fL MCH 27.5 (25-34) pg MCHC 29.5 L (32-36) g/dL RDW Std Deviation 52.8 H (36.4-46.3) fL RDW Coeff of [place] 15.4 H (11.5-14.5) % Plt Count 315 (130-400) K/uL MPV 11.2 H (7.4-10.4) fL PT 12.2 H (9.0-12.0) Seconds INR 1.2 H (0.9-1.1) APTT 50.4 H* (21.0-31.0) Seconds PTT Ratio 1.8 ABG pH (7.35-7.45) ABG pCO2 (35-46) mmHg ABG pO2 (80-95) mmHg ABG HCO3 (19-24) mmol/L ABG O2 Saturation (90-95) % ABG Base Excess (-9-1.8) mEq/L Rene Test (Pos) Barometric Pressure mm/Hg Oxygen Given Sodium 144 (136-145) mmol/L Potassium 3.6 (3.5-5.1) mmol/L Chloride 107 (98-107) mmol/L Carbon Dioxide 32 (21-32) mmol/L Anion Gap 5.0 (3-11) BUN 10 (7-18) mg/dl Creatinine 0.42 L (0.6-1.2) mg/dl Est Cr Clr Drug Dosing 150.5 ml/min Est GFR ( Amer) 113.8 Est GFR (Non-Af Amer) 98.2 BUN/Creatinine Ratio 24.1 H (10-20) Glucose 158 H (70-99) mg/dl POC Glucose (70-99) mg/dl Calcium 8.4 L (8.5-10.1) mg/dl Phosphorus 2.1 L (2.5-4.9) mg/dl Magnesium 2.3 (1.8-2.4) mg/dl 11/25/20 11/24/20 11/24/20 Range/Units 07:17 20:46 20:12 WBC (4.8-10.8) K/uL RBC (4.2-5.4) M/uL Hgb (12.0-16.0) g/dL Hct (37-47) % MCV (80-100) fL MCH (25-34) pg MCHC (32-36) g/dL RDW Std Deviation (36.4-46.3) fL RDW Coeff of [place] (11.5-14.5) % Plt Count (130-400) K/uL MPV (7.4-10.4) fL PT (9.0-12.0) Seconds INR (0.9-1.1) APTT 63.8 H* (21.0-31.0) Seconds PTT Ratio 2.3 ABG pH (7.35-7.45) ABG pCO2 (35-46) mmHg ABG pO2 (80-95) mmHg ABG HCO3 (19-24) mmol/L ABG O2 Saturation (90-95) % ABG Base Excess (-9-1.8) mEq/L Rene Test (Pos) Barometric Pressure mm/Hg Oxygen Given Sodium (136-145) mmol/L Potassium (3.5-5.1) mmol/L Chloride (98-107) mmol/L Carbon Dioxide (21-32) mmol/L Anion Gap (3-11) BUN (7-18) mg/dl Creatinine (0.6-1.2) mg/dl Est Cr Clr Drug Dosing ml/min Est GFR ( Amer) Est GFR (Non-Af Amer) BUN/Creatinine Ratio (10-20) Glucose (70-99) mg/dl POC Glucose 127 H 142 H (70-99) mg/dl Calcium (8.5-10.1) mg/dl Phosphorus (2.5-4.9) mg/dl Magnesium (1.8-2.4) mg/dl Medications Administered Current Inpatient Medications Acetaminophen (Acetaminophen 325 Mg Tab) 650 mg PO Q4H PRN PRN Reason: Pain or Fever Stop: 12/19/20 22:07 Last Admin: 11/21/20 00:22 Dose: 650 mg Documented by: Al Hydrox/Mg Hydrox/Simethicone (Aluminum/Magnesium Susp 30 Ml Udc) 15 ml PO Q6H PRN PRN Reason: Indigestion Stop: 12/23/20 14:20 Last Admin: 11/25/20 03:36 Dose: 15 ml Documented by: Amiodarone HCl (Amiodarone 200 Mg Tab) 400 mg PO BIDM [facility] Stop: 12/23/20 16:59 Last Admin: 11/25/20 09:16 Dose: 400 mg Documented by: Cyanocobalamin (Cyanocobalamin 500 Mcg Tablet (Vitamin B-12)) 1,000 mcg PO DAILY [facility] Stop: 12/21/20 08:59 Last Admin: 11/25/20 09:17 Dose: 1,000 mcg Documented by: Dextrose (Dextrose 50% 50 Ml Syringe) 25 - 50 ml IV UD PRN; Protocol PRN Reason: Hypoglycemia Protocol Stop: 12/19/20 22:07 Doxycycline Hyclate (Doxycycline Hyclate 100 Mg Cap) 100 mg PO BID [facility] Stop: 12/02/20 08:59 Last Admin: 11/25/20 09:16 Dose: 100 mg Documented by: Glucagon (Glucagon For Inj 1 Mg Vial) 1 mg SQ UD PRN; Protocol PRN Reason: Hypoglycemia Protocol Stop: 12/19/20 22:07 Glucose (Glucose 10 Tabs/Tube) 4 - 8 tabs PO UD PRN; Protocol PRN Reason: Hypoglycemia Protocol Stop: 12/19/20 22:07 Glucose (Glucose 40% Gel 15 Gm Tube) 15 - 30 gm PO UD PRN; Protocol PRN Reason: Hypoglycemia Protocol Stop: 12/19/20 22:07 Metronidazole (Flagyl) 500 mg in 100 mls @ 100 mls/hr IV Q8H [facility] Stop: 11/30/20 00:00 Last Admin: 11/25/20 16:41 Dose: 100 mls/hr Documented by: Heparin Sodium/Dextrose (Heparin Sodium/Dextrose) 25,000 units in 500 mls @ 41 mls/hr IV .[id number] [facility]; Protocol Stop: 12/21/20 09:44 Last Admin: 11/25/20 11:06 Dose: 2,050 units/hr, 41 mls/hr Documented by: Ceftriaxone Sodium 2,000 mg/ (Dextrose) 70 mls @ 140 mls/hr IV Q24H [facility] Stop: 12/05/20 13:59 Last Infusion: 11/25/20 15:20 Dose: Infused Documented by: Parenteral Electrolytes (Normosol-R) 1,000 mls @ 100 mls/hr IV .Q10H [facility] Stop: 12/21/20 22:59 Last Infusion: 11/24/20 17:29 Dose: 0 mls/hr Documented by: Furosemide 20 mg/ Syringe 2 mls @ 4 mls/min IV ONE ONE Stop: 11/25/20 17:31 Insulin Aspart (Insulin Aspart 100 Units/Ml 3 Ml Pen) 0 units SC ACHS [facility] Stop: 12/22/20 16:29 Last Admin: 11/25/20 16:41 Dose: Not Given Documented by: Insulin Glargine (Insulin Glargine Solostar 100 Units/Ml 3 Ml Pen) 0 units SC QDD [facility]; Protocol Stop: 12/25/20 16:29 Last Admin: 11/25/20 16:42 Dose: 35 units Documented by: Metoprolol Tartrate (Metoprolol Tartrate 100 Mg Tab) 100 mg PO BID [facility] Stop: 12/19/20 22:07 Last Admin: 11/25/20 09:17 Dose: 100 mg Documented by: Miscellaneous (Carbohydrates For Hypoglycemia ) 15 - 30 gm PO UD PRN PRN Reason: Hypoglycemia Protocol Stop: 12/19/20 22:07 Miscellaneous Information (Pharmacy Glycemic Mgmt Consult) 1 ea N/A UD PRN; Protocol PRN Reason: Consult Stop: 12/19/20 22:17 Morphine Sulfate (Morphine Sulfate 4 Mg/Ml 1 Ml Carp\Vial) 4 mg IV Q4H PRN PRN Reason: Pain Stop: 12/03/20 22:07 Ondansetron HCl (Ondansetron Inj 2 Mg/Ml 2 Ml Vial) 4 mg IV Q6H PRN PRN Reason: Nausea Stop: 12/19/20 22:07 Last Admin: 11/23/20 15:09 Dose: 4 mg Documented by: Oxycodone HCl (Oxycodone Hcl Ir 5 Mg Tab (Immediate Release)) 5 mg PO Q4H PRN PRN Reason: Moderate Pain Stop: 12/05/20 11:06 Last Admin: 11/25/20 03:36 Dose: 5 mg Documented by: Polyethylene Glycol (Polyethylene (Miralax) 17 Gm Pack) 17 gm PO DAILY PRN PRN Reason: Constipation Stop: 12/23/20 14:22 Simethicone (Simethicone 80 Mg Chew) 80 mg PO Q6H PRN PRN Reason: bloating Stop: 12/23/20 14:20 Warfarin Sodium (Warfarin Sod 6 Mg Tab) 6 mg PO DAILY@1600 TAYO Stop: 12/24/20 15:59 Last Admin: 11/25/20 16:43 Dose: 6 mg Documented by: (1) Sepsis Sepsis acute organ dysfunction status: unspecified Sepsis type: sepsis due to unspecified organism Qualified Code(s): A41.9 - Sepsis, unspecified organism
[2020-11-25 08:12] LABS: INR 1.2 (0.9-1.1); Prothrombin Time 12.2 Seconds (9.0-12.0)
[2020-11-25 08:14] LABS: BUN Creatinine Ratio 24.1 (10-20); Calcium 8.4 mg/dl (8.5-10.1); Creatinine Clr Calc Pharmacy 150.5 ml/min; Est GFR (African American) 113.8; Est GFR (Non-African American) 98.2; Magnesium 2.3 mg/dl (1.8-2.4); Potassium 3.6 mmol/L (3.5-5.1)
[2020-11-25 08:20] LABS: Phosphorus 2.1 mg/dl (2.5-4.9)
[2020-11-25] MEDS ORDERED: FUROSEMIDE 40 MG in SYRINGE 0 ML IV ONE (08:30)
[2020-11-25] MEDS ORDERED: ALBUMIN 25% 12.5 GM/50 ML VIAL IV ONE (08:45)
[2020-11-25] MEDS: metroNIDAZOLE 500 MG/100 ML BAG IV SCH ×3 (09:07→23:44)
[2020-11-25] MEDS ORDERED: POTASSIUM PHOS 3 MMOL/1 ML INFUSION IV STA (09:14)
[2020-11-25] MEDS: AMIODARONE 200 MG TAB PO SCH ×2 (09:16→18:05)
[2020-11-25] MEDS: DOXYCYCLINE HYCLATE 100 MG CAP PO SCH ×2 (09:16→22:06)
[2020-11-25] MEDS: CYANOCOBALAMIN 500 MCG TABLET (VITAMIN B-12) PO SCH (09:17)
[2020-11-25] MEDS: METOPROLOL TARTRATE 100 MG TAB PO SCH ×2 (09:17→21:07)
[2020-11-25] MEDS: INSULIN ASPART 100 UNITS/ML 3 ML PEN SC SCH ×4 (09:38→21:06)
[2020-11-25 09:56] LABS: Partial Thromboplastin Ratio 1.8
--- NOTE | 2020-11-25 09:57 | Pharmacy Report ---
Pharmacy Glycemic Short Note 2 - Date of Service November 25, 2020 - Glycemic Short BSG Results (Last 24 hours): 11/24/20 11/24/20 11/24/20 11:23 16:33 20:46 Glucose POC Glucose 153 H 147 H 142 H 11/25/20 11/25/20 07:17 07:25 Glucose 158 H POC Glucose 127 H ASSESSMENT: 11/25 * Patient received total of 60 units of insulin yesterday, of which 50 were basal insulin * BSGs well controlled over last 24 hrs despite PO intake poorer. Continues on heparin drip at high rates ~41 ml/hr (mixed in dextrose). May consider scaling back insulin if heparin drip were to stop PLAN FOR INPATIENT GLYCEMIC CONTROL: * Hold outpatient oral diabetes medications * Basal insulin * Lantus 50 units daily * Bolus insulin * NovoLog per scale ACHS or Q6hrs while NPO * Goal Range: Low 110 mg/dL - High 140 mg/dL * Correction Factor: 15 mg/dL/unit * Nutritional / Prandial insulin per carb ratio of 1 unit per 4 grams CHO consumed PLAN FOR DISCHARGE: * Patient's HbA1C is reasonable given her age and comorbidities. * Home insulin regimen consists of all basal insulin. Regimens like this can sometimes cause more frequent hypoglycemia, especially if diet is changing. Ideally would prefer a 50/50 split of insulin between basal/prandial. * Would ensure patient is not experiencing frequent hypoglycemia outpatient if outpatient regimen to be continued
[2020-11-25] MEDS ORDERED: POTASSIUM PHOSPHATE 9 MMOL in SODIUM CHLORIDE 0.9% 250 ML IV ONE (10:00)
[2020-11-25 10:02] LABS: Partial Thromboplastin Time 50.4 Seconds (21.0-31.0)
--- NOTE | 2020-11-25 12:13 | Surgery Progress Note ---
Date of Service pt feels better, tolerated diet, no nausea, no vomiting, no fever, YURI 250ml clear fluid November 25, 2020 Assessment & Plan (1) Sepsis: (2) Cholangitis: pt is a 80 year-old female who presents to Er with 3-4 days history epigastric pain with back pain, IMP: sepsis, cholangitis, acute cholecystitis, cholelithiasis, acute renal dysfunction Plan, hospitalist will admit pt to hospital, consult GI doctor for possible emergent ERCP for obstructed CBD stone, IV fluid, IV antibiotic, U/S study for gallbladder and HIDA scan tomorrow, repeat labs CBC, CMP in morning, Thanks, possible do laparoscopic cholecystectomy in 1-2 days so, pt and her agree with the plan, D/W ER attending, will F/U, Thanks, 11/21/2020 9:53AM S/P laparoscopic subtotal cholecystectomy, I did called pt's about OR finding and the procedure pt had after surgery yesterday, I answered all q uestions, POD 1, no active bleeding signs, developed A-Fib, D/W hospitalist, IV fluid, CT scan chest to R/O recurrent PE, pt can have heparin treatment if conform diagnosis: recurrent PE. 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 surgeon will cover this weekend Thanks, 11/24/2020 9:27AM F/U S/P lap subtotal cholecystectomy, POD 4 doing better, I update information about OR finding and the procedure pt had, pt understood, I answered all questions, normal WBC, continue treatment, keep the YURI drainage, OOB, will F/U, 11/25/2020 12:09PM F/U S/P lap subtotal cholecystectomy, POD 5 doing better, normal WBC, continue treatment, keep the YURI drainage for one more week, I will remove the YURI at my office or hospital, stop Flagy on 11/27/2020 OOB, no surgical issue now, F/U me in 2 weeks, sign off today, please call with questions, Thanks, (3) Acute cholecystitis due to biliary calculus: Admission and Anticipated Discharge Date Admission Date: November 19, 2020 Supervising Physician Co-Signing Physician Notes Patient seen and examined, labs and imaging reviewed, agree with above. Status post ERCP for cholangitis followed by laparoscopic subtotal cholecystectomy with drain placement for gangrenous cholecystitis. She was transferred out of the ICU yesterday and has not had any significant hypoxia or arrhythmias. Overall she feels better than she did a few days ago. On exam she is afebrile with stable vitals. Her abdomen is soft, appropriately tender to palpation, incisions clean dry and intact. YURI with serosanguineous output. Labs reviewed with normal white blood cell count and LFTs. CT scan from the other night was reviewed, the appearance of the gallbladder bed is consistent with a subtotal cholecystectomy. At this point there is no evidence that this is an abscess, but will take a few days to mature. For now would recommend continuing IV antibiotics, diet as tolerated, continue YURI drain. Dr. Macdonald will be back tomorrow. Subjective Pt seen in follow up of acute ascending cholengitis and acute cholecystitis, gram negat. bacteremia, Afib, acte hypoxic hypercarb. resp. failure 2/2 Obesity hypoventilation syndrome after surgery, LUZ MARIA Currently s/p lap. [place]. Converted to NSR. Needs bipap w/ napping/ sleeping. Overnight pt more restless and taking her bipap off. received pain meds and ativan early in the morning/overnight. Hypoxic to 85%. Currently back on bipap a nd calm no complaints at this time. She is awake and able to answer orientation questions appropriately. Stat ABG and CXR ordered. Pt's updated over the phone this AM (11/25/2020). Physical Exam Constitutional: WD/WN, vitals as above well developed and well nourished Eyes: PERRL, conjunctivae normal, anicteric sclerae ENMT: external ear and nose normal, oropharynx normal Neck: trachea midline, no thyromegaly Respiratory: normal respiratory effort, lungs clear to auscultation normal respiratory effort Cardiovascular: RRR, no murmur, no edema Rate/Rhythm: + irregularly irregular Heart Sounds: normal S1 and normal S2 Gastrointestinal (Abdomen): normal bowel sounds, soft, nontender, no hepatosplenomegaly Percussion/Palpation: abdomen soft YURI intact, no distend, BS + Musculoskeletal: no cyanosis or clubbing, extremities motor strength 5/5 Skin: no rashes, warm and dry Neurologic: awake Psychiatric: Orientation: alert and oriented x 3 Results & Data ([facility]) Vital Signs (Past 12 Hours) Vital Signs Temp Pulse Pulse Resp BP Pulse Ox 11/25/20 11:28 36.5 C 62 21 147/80 H 96 11/25/20 09:00 90 11/25/20 07:10 36.6 C 73 21 166/71 H 96 11/25/20 07:06 72 24 95 11/25/20 03:25 37.0 C 61 20 172/78 H 95 Laboratory Results Abnormal lab results 11/24/20 11/24/20 11/24/20 Range/Units 13:02 16:33 20:12 MCHC (32-36) g/dL RDW Std Deviation (36.4-46.3) fL RDW Coeff of [place] (11.5-14.5) % MPV (7.4-10.4) fL PT (9.0-12.0) Seconds INR (0.9-1.1) APTT 33.2 H 63.8 H* (21.0-31.0) Seconds ABG pH (7.35-7.45) ABG pCO2 (35-46) mmHg ABG pO2 (80-95) mmHg ABG HCO3 (19-24) mmol/L ABG Base Excess (-9-1.8) mEq/L Creatinine (0.6-1.2) mg/dl BUN/Creatinine Ratio (10-20) Glucose (70-99) mg/dl POC Glucose 147 H (70-99) mg/dl Calcium (8.5-10.1) mg/dl Phosphorus (2.5-4.9) mg/dl 11/24/20 11/25/20 11/25/20 Range/Units 20:46 07:17 07:25 MCHC 29.5 L (32-36) g/dL RDW Std Deviation 52.8 H (36.4-46.3) fL RDW Coeff of [place] 15.4 H (11.5-14.5) % MPV 11.2 H (7.4-10.4) fL PT (9.0-12.0) Seconds INR (0.9-1.1) APTT (21.0-31.0) Seconds ABG pH (7.35-7.45) ABG pCO2 (35-46) mmHg ABG pO2 (80-95) mmHg ABG HCO3 (19-24) mmol/L ABG Base Excess (-9-1.8) mEq/L Creatinine (0.6-1.2) mg/dl BUN/Creatinine Ratio (10-20) Glucose (70-99) mg/dl POC Glucose 142 H 127 H (70-99) mg/dl Calcium (8.5-10.1) mg/dl Phosphorus (2.5-4.9) mg/dl 11/25/20 11/25/20 11/25/20 Range/Units 07:25 07:25 07:31 MCHC (32-36) g/dL RDW Std Deviation (36.4-46.3) fL RDW Coeff of [place] (11.5-14.5) % MPV (7.4-10.4) fL PT 12.2 H (9.0-12.0) Seconds INR 1.2 H (0.9-1.1) APTT 50.4 H* (21.0-31.0) Seconds ABG pH 7.26 L (7.35-7.45) ABG pCO2 77 H (35-46) mmHg ABG pO2 72 L (80-95) mmHg ABG HCO3 34 H (19-24) mmol/L ABG Base Excess 4.7 H (-9-1.8) mEq/L Creatinine 0.42 L (0.6-1.2) mg/dl BUN/Creatinine Ratio 24.1 H (10-20) Glucose 158 H (70-99) mg/dl POC Glucose (70-99) mg/dl Calcium 8.4 L (8.5-10.1) mg/dl Phosphorus 2.1 L (2.5-4.9) mg/dl 11/25/20 Range/Units 11:23 MCHC (32-36) g/dL RDW Std Deviation (36.4-46.3) fL RDW Coeff of [place] (11.5-14.5) % MPV (7.4-10.4) fL PT (9.0-12.0) Seconds INR (0.9-1.1) APTT (21.0-31.0) Seconds ABG pH (7.35-7.45) ABG pCO2 (35-46) mmHg ABG pO2 (80-95) mmHg ABG HCO3 (19-24) mmol/L ABG Base Excess (-9-1.8) mEq/L Creatinine (0.6-1.2) mg/dl BUN/Creatinine Ratio (10-20) Glucose (70-99) mg/dl POC Glucose 130 H (70-99) mg/dl Calcium (8.5-10.1) mg/dl Phosphorus (2.5-4.9) mg/dl (1) Sepsis Sepsis acute organ dysfunction status: unspecified Sepsis type: sepsis due to unspecified organism Qualified Code(s): A41.9 - Sepsis, unspecified organism
[2020-11-25] MEDS: cefTRIAXone SODIUM 2,000 MG in DEXTROSE 5% 50 ML IV SCH (14:47)
[2020-11-25] MEDS: INSULIN GLARGINE SOLOSTAR 100 UNITS/ML 3 ML PEN SC SCH (16:42)
[2020-11-25] MEDS: WARFARIN SOD 6 MG TAB PO SCH (16:43)
--- NOTE | 2020-11-25 16:58 | Cardiology Progress Note ---
Date of Service November 25, 2020 Assessment & Plan (1) Atrial flutter with rapid ventricular response: (2) NSVT (nonsustained ventricular tachycardia): (3) Moderate aortic stenosis: (4) HTN (hypertension): (5) History of paroxysmal supraventricular tachycardia: (6) History of paroxysmal atrial tachycardia: (7) Acute cholecystitis: (8) Lymphedema, not elsewhere classified: (9) History of pulmonary embolism: (10) DM type 2 (diabetes mellitus, type 2): (11) SHAYNE (acute kidney injury): Converted to sinus rhythm. Continue current dose of oral amiodarone Heparin bridge. Coumadin restarted Should also be continued on metoprolol. Aortic stenosis is unchanged and remains moderate. Septal wall flattening consistent with RV pressure/volume overload also seen on echocardiogram. Okay to DC from telemetry or to home from a cardiac standpoint. Admission and Anticipated Discharge Date Admission Date: November 19, 2020 Subjective Patient seen and examined, chart reviewed. Had difficulty with BiPAP last night but is now tolerating. Denies any cardiac complaints of chest pain, palpitations, lightheadedness, dizziness or syncope. Telemetry reviewed: Normal sinus rhythm without recurrences of atrial fibrillation. Review of Systems Review of Systems: All systems reviewed & are unremarkable except as noted in HPI & below Physical Exam Physical Exam: General: Awake, alert and oriented x 3. No acute distress. HEENT: Normocephalic, atraumatic. Pupils equal, round and reactive to light and accommodation. Extraocular muscles are intact. Anicteric sclera. Moist mucous membranes. Neck: No JVD. No bruit. Cardiovascular: Regular. Positive S-4. Normal S-1 and S-2. No S-3. No murmurs or rubs. Pulmonary: Clear to auscultation B/L. No rales, rhonchi or wheezing Abdomen: Bowel sounds x 4, soft. No rebound, guarding or tenderness. No organomegaly. Extremities: No clubbing, cyanosis or edema. +2 pedal pulses bilaterally. Skin: Warm and dry. Results & Data ([facility]) Vital Signs (Past 12 Hours) Vital Signs Temp Pulse Pulse Resp BP Pulse Ox 11/25/20 15:57 36.6 C 61 20 142/77 H 97 11/25/20 11:28 36.5 C 62 21 147/80 H 96 11/25/20 09:00 90 11/25/20 07:10 36.6 C 73 21 166/71 H 96 11/25/20 07:06 72 24 95
[2020-11-25] MEDS ORDERED: FUROSEMIDE 20 MG in SYRINGE 0 ML IV ONE (17:30)
[2020-11-25] MEDS ORDERED: POTASSIUM CHLORIDE CRTAB 20 MEQ TABCR PO ONE (17:30)
[2020-11-26] MEDS: MoRPHine SULFATE 4 MG/ML 1 ML CARP\\VIAL IV PRN ×2 (00:08→04:36)
[2020-11-26 06:16] LABS: Hematocrit (blood only) 41.7 % (37-47); Hemoglobin 12.4 g/dL (12.0-16.0); Mean Corpuscular Hemoglobin 27.4 pg (25-34); Mean Corpuscular Hgb Conc 29.7 g/dL (32-36); Mean Corpuscular Volume 92.3 fL (80-100); Mean Platelet Volume 11.4 fL (7.4-10.4); Platelet Count 353 K/uL (130-400); RDW Coefficient of Variation 15.2 % (11.5-14.5); RDW Standard Deviation 51.6 fL (36.4-46.3); Red Blood Count 4.52 M/uL (4.2-5.4); White Blood Count 11.68 K/uL (4.8-10.8)
[2020-11-26 06:21] LABS: INR 1.3 (0.9-1.1)
[2020-11-26 06:33] LABS: Partial Thromboplastin Ratio 2.4
[2020-11-26 06:46] LABS: Partial Thromboplastin Time 66.8 Seconds (21.0-31.0)
[2020-11-26 06:49] LABS: BUN Creatinine Ratio 19.5 (10-20); Calcium 7.9 mg/dl (8.5-10.1); Est GFR (African American) 109.7; Est GFR (Non-African American) 94.6; Magnesium 1.9 mg/dl (1.8-2.4); Phosphorus 1.6 mg/dl (2.5-4.9); Potassium 3.4 mmol/L (3.5-5.1)
[2020-11-26] MEDS: ONDANSETRON INJ 2 MG/ML 2 ML VIAL IV PRN (08:18)
--- NOTE | 2020-11-26 08:24 | XRay Report ---
XR chest 1V portable CLINICAL HISTORY: follow up COMPARISON STUDY: Chest CT November 21, 2020. Chest radiograph November 25, 2019. FINDINGS: This exam was technically difficult to obtain. Motion artifact is noted. There is no pneumo thorax. Interstitial thickening has improved. Small bilateral pleural effusions and bibasilar opaciti es persist. Cardiomegaly is again noted. IMPRESSION: 1. Technically difficult study to obtain. Motion artifact. 2. Mild improvement in suspected pulmonary edema. 3. Persistent small bilateral pleural effusions and bibasilar opacities which may reflect atelectasis or consolidation.. ACT 112: Negative or not required by law. Electronically signed by: Stanislav Gonzales M.D. 11/26/2020 8:23 AM
[2020-11-26] MEDS: INSULIN ASPART 100 UNITS/ML 3 ML PEN SC SCH ×4 (09:20→21:56)
[2020-11-26] MEDS: metroNIDAZOLE 500 MG/100 ML BAG IV SCH ×3 (09:24→23:48)
[2020-11-26] MEDS ORDERED: METOCLOPRAMIDE HCL INJ 5 MG/ML 2 ML VIAL IV ONE (09:34)
[2020-11-26] MEDS: DOXYCYCLINE HYCLATE 100 MG CAP PO SCH ×2 (10:32→21:08)
[2020-11-26] MEDS: AMIODARONE 200 MG TAB PO SCH ×2 (10:32→16:43)
[2020-11-26] MEDS: METOPROLOL TARTRATE 100 MG TAB PO SCH ×3 (10:33→21:11)
[2020-11-26] MEDS: CYANOCOBALAMIN 500 MCG TABLET (VITAMIN B-12) PO SCH (12:08)
[2020-11-26] MEDS: HEPARIN SODIUM/DEXTROSE 25,000 UNITS/500 ML BAG IV SCH (12:53)
[2020-11-26 13:45] LABS: Partial Thromboplastin Ratio 2.3
[2020-11-26] MEDS: cefTRIAXone SODIUM 2,000 MG in DEXTROSE 5% 50 ML IV SCH (14:15)
[2020-11-26] MEDS: WARFARIN SOD 6 MG TAB PO SCH (16:44)
[2020-11-26] MEDS: INSULIN GLARGINE 100 UNIT/ML VIAL SC SCH (17:22)
[2020-11-26] MEDS: INSULIN GLARGINE SOLOSTAR 100 UNITS/ML 3 ML PEN SC SCH (17:56)
--- NOTE | 2020-11-26 18:14 | Hospitalist Progress Note ---
Date of Service November 26, 2020 Assessment & Plan (1) Choledocholithiasis: (2) Ascending cholangitis: (3) Acute cholecystitis: Patient presented with epigastric abdominal pain that has been going on for the last 5 days prior to admission. CT abdomen/pelvis was consistent with acute cholecystitis and could represent early gangrenous change. Surgery was called consulted. S/p ERCP on November 19 with Choledocholithiasis, ascending cholangitis, stents placed. S/p laparoscopic cholecystectomy on November 21. Was on cefepime and Flagyl, currently on ceftriaxone and Flagyl given blood cultures. Patient remains afebrile. White count is not concerning. (4) Sepsis: Resolved. Currently hemodynamically stable. Afebrile. White count is not concerning. (5) E coli bacteremia: Cultures from November 17 are positive for E. coli. Currently remains on IV ceftriaxone and Flagyl. Doxycycline??? Blood cultures from 11/21 - thus far. Cultures from 11/23 are negative thus far. Patient likely needs 2 weeks of antibiotic therapy. We will touch base with infectious disease for final recommendations. (6) UTI (urinary tract infection): Pansensitive E. coli. We will continue with ceftriaxone. (7) Atrial flutter with rapid ventricular response: (8) NSVT (nonsustained ventricular tachycardia): On 11/21 patient had an episode of SVT/V. tach/A. fib with RVR. Cardiology was consulted. Patient was started on heparin followed by Coumadin. Continue with Lopressor 100 mg twice daily, rate is well controlled. CT PE study was obtained which was negative. Transthoracic echo was obtained on 11/21 with a EF of 50%. Moderately calcified aortic valves and moderate valvular aortic stenosis. Patient is in normal sinus rhythm. Continue to p.o. amiodarone 400 mg twice daily. (9) Hypoxia: This morning patient was down to 4 L of nasal cannula. BiPAP at nighttime. CT chest on admission without any concerning findings. Due to ongoing hypoxia, CTA was obtained which was negative for any pulmonary embolism. There is some component of obesity hypoventilation syndrome. Possible component of diastolic heart failure as well. We will order IV Lasix 60 mg 1 dose now. Continue to monitor ins and outs along with daily weights. Prior to admission patient takes p.o. Lasix 80 mg daily.lasix (10) SHAYNE (acute kidney injury): Resolved. Continue holding lisinopril. (11) Left anterior fascicular block: (12) Elevated troponin: -Troponin 0.067 -> 0.06 -> 0.03 Likely demand in nature in the setting of sepsis. Cardiology is on board. Continue to monitor. (13) Lymphedema, not elsewhere classified: Continue to diurese. (14) History of pulmonary embolism: Continue with Coumadin, INR today at 1.3. Currently on heparin bridge. (15) History of paroxysmal atrial tachycardia: (16) History of paroxysmal supraventricular tachycardia: Continue Lopressor milligrams twice daily. (17) DM type 2 (diabetes mellitus, type 2): -Hgb A1c 6.8 05/2020 -Lantus/NovoLog -Glycemic pharmacy consult (18) HTN (hypertension): [employer] lisinopril has on hold. Patient is hypertensive. Giving Lasix today. Continue to hold lisinopril for now. (19) History of breast cancer: -History of breast cancer s/p left mastectomy -CT chest showing A few small right breast nodules measure up to 13 mm. Nonemergent mammogram follow-up recommended. (20) LUZ MARIA (obstructive sleep apnea): -Noncompliant with CPAP -Encouraged follow-up with sleep medicine (21) DVT prophylaxis: -On IV heparin, continue with Coumadin Admission and Anticipated Discharge Date Admission Date: November 19, 2020 Subjective Patient was resting comfortably this morning. She was not oriented to time place or person. Did not appear to be in any discomfort. Was requiring 4 L of nasal cannula review of systems was mainly negative except generalized abdominal pain. Any shortness of breath, any cough or any chest pain. Review of Systems Review of Systems: All systems reviewed & are unremarkable except as noted in HPI & below Physical Exam Physical Exam: General: Awake and alert, not oriented to time place or person, chronically ill-appearing female HENT: NCAT, MMM, EOMI Eyes: PERRLA Neck: Supple, normal range of motion CVS: normal rate and rhythm Resp: b/l decreased breath sound Abdomen: Soft, nondistended, nontender, YURI drain in place with SS output Extremities: 4+ lower extremity edema, patient also noted to have significant bilateral upper remedies edema Neuro: No gross focal deficits appreciated Skin: warm and dry MSK: No joint swelling appreciated Fully catheter in place. Results & Data Results & Data ([facility]) Vital Signs (Past 12 Hours) Vital Signs Temp Pulse Pulse Resp BP Pulse Ox Pulse Ox 11/26/20 16:18 36.4 C L 69 18 156/75 H 95 11/26/20 16:00 59 L 11/26/20 11:30 36.7 C 60 22 145/73 H 93 92 11/26/20 08:00 66 11/26/20 07:17 36.5 C 78 20 165/68 H 98 Pulse Ox Pulse Ox 11/26/20 16:18 11/26/20 16:00 11/26/20 11:30 91 87 L 11/26/20 08:00 11/26/20 07:17 Laboratory Results Laboratory Results - last 24 hr 11/25/20 11/26/20 11/26/20 20:16 06:01 06:01 WBC 11.68 H RBC 4.52 Hgb 12.4 Hct 41.7 MCV 92.3 MCH 27.4 MCHC 29.7 L RDW Std Deviation 51.6 H RDW Coeff of [place] 15.2 H Plt Count 353 MPV 11.4 H PT 14.0 H INR 1.3 H APTT PTT Ratio Sodium Potassium Chloride Carbon Dioxide Anion Gap BUN Creatinine Est Cr Clr Drug Dosing Est GFR ( Amer) Est GFR (Non-Af Amer) BUN/Creatinine Ratio Glucose POC Glucose 115 H Calcium Phosphorus Magnesium Procalcitonin 11/26/20 11/26/20 11/26/20 06:01 06:01 06:01 WBC RBC Hgb Hct MCV MCH MCHC RDW Std Deviation RDW Coeff of [place] Plt Count MPV PT INR APTT 66.8 H* PTT Ratio 2.4 Sodium 144 Potassium 3.4 L Chloride 103 Carbon Dioxide 38 H Anion Gap 3.0 BUN 9 Creatinine 0.47 L Est Cr Clr Drug Dosing 133.0 Est GFR ( Amer) 109.7 Est GFR (Non-Af Amer) 94.6 BUN/Creatinine Ratio 19.5 Glucose 84 POC Glucose Calcium 7.9 L Phosphorus 1.6 L Magnesium 1.9 Procalcitonin 1.02 H 11/26/20 11/26/20 11/26/20 07:15 10:58 13:13 WBC RBC Hgb Hct MCV MCH MCHC RDW Std Deviation RDW Coeff of [place] Plt Count MPV PT INR APTT 64.0 H* PTT Ratio 2.3 Sodium Potassium Chloride Carbon Dioxide Anion Gap BUN Creatinine Est Cr Clr Drug Dosing Est GFR ( Amer) Est GFR (Non-Af Amer) BUN/Creatinine Ratio Glucose POC Glucose 84 102 H Calcium Phosphorus Magnesium Procalcitonin 11/26/20 16:19 WBC RBC Hgb Hct MCV MCH MCHC RDW Std Deviation RDW Coeff of [place] Plt Count MPV PT INR APTT PTT Ratio Sodium Potassium Chloride Carbon Dioxide Anion Gap BUN Creatinine Est Cr Clr Drug Dosing Est GFR ( Amer) Est GFR (Non-Af Amer) BUN/Creatinine Ratio Glucose POC Glucose 127 H Calcium Phosphorus Magnesium Procalcitonin (1) Sepsis Sepsis acute organ dysfunction status: unspecified Sepsis type: sepsis due to unspecified organism Qualified Code(s): A41.9 - Sepsis, unspecified organism
[2020-11-26] MEDS ORDERED: FUROSEMIDE 60 MG in SYRINGE 0 ML IV ONE (19:00)
[2020-11-27] MEDS: HEPARIN SODIUM/DEXTROSE 25,000 UNITS/500 ML BAG IV SCH ×5 (02:05→15:46)
[2020-11-27 06:37] LABS: Hematocrit (blood only) 40.6 % (37-47); Hemoglobin 11.9 g/dL (12.0-16.0); Mean Corpuscular Hemoglobin 27.2 pg (25-34); Mean Corpuscular Hgb Conc 29.3 g/dL (32-36); Mean Corpuscular Volume 92.7 fL (80-100); Mean Platelet Volume 10.9 fL (7.4-10.4); Platelet Count 345 K/uL (130-400); RDW Coefficient of Variation 15.4 % (11.5-14.5); RDW Standard Deviation 52.1 fL (36.4-46.3); Red Blood Count 4.38 M/uL (4.2-5.4); White Blood Count 10.44 K/uL (4.8-10.8)
[2020-11-27 06:47] LABS: INR 1.8 (0.9-1.1); Prothrombin Time 18.5 Seconds (9.0-12.0)
[2020-11-27 06:59] LABS: ALC (manual) 0.54 K/uL (1.2-3.4); ANC (manual) 7.16 K/uL (1.4-6.5); Basophils # (manual) 0.09 K/uL (0-0.2); Basophils % (manual) 0.9 %; Eosinophils # (manual) 0.37 K/uL (0-0.5); Eosinophils % (manual) 3.5 %; Lymphocytes # (manual) 0.54 K/uL (1.2-3.4); Lymphocytes % (manual) 5.2 %; Metamyelocytes # (manual) 0.91 K/uL (0-0); Metamyelocytes % (manual) 8.7 %; Myelocytes # (manual) 0.54 K/uL (0-0); Myelocytes % (manual) 5.2 %; Neutrophils # (manual) 7.16 K/uL (1.4-6.5); Neutrophils % (manual) 68.6 %; Toxic Granulation 1+
[2020-11-27 07:07] LABS: Calcium 7.9 mg/dl (8.5-10.1); Creatinine Clr Calc Pharmacy 148.2 ml/min; Est GFR (African American) 113.8; Est GFR (Non-African American) 98.2; Monocytes % (manual) 7.9 %; Potassium 3.3 mmol/L (3.5-5.1)
[2020-11-27 07:09] LABS: Monocytes # (manual) 0.82 K/uL (0.11-0.59)
[2020-11-27 07:23] LABS: Partial Thromboplastin Ratio 2.5
[2020-11-27 07:32] LABS: Partial Thromboplastin Time 68.7 Seconds (21.0-31.0)
[2020-11-27] MEDS: DOXYCYCLINE HYCLATE 100 MG CAP PO SCH ×2 (09:13→09:27)
[2020-11-27] MEDS: AMIODARONE 200 MG TAB PO SCH ×3 (09:13→17:31)
[2020-11-27] MEDS: METOPROLOL TARTRATE 100 MG TAB PO SCH ×2 (09:13→21:19)
[2020-11-27] MEDS: CYANOCOBALAMIN 500 MCG TABLET (VITAMIN B-12) PO SCH ×2 (09:13→09:27)
[2020-11-27] MEDS: metroNIDAZOLE 500 MG/100 ML BAG IV SCH ×3 (09:14→17:28)
[2020-11-27] MEDS ORDERED: POTASSIUM CHLORIDE CRTAB 20 MEQ TABCR PO STA (09:24)
[2020-11-27] MEDS: INSULIN ASPART 100 UNITS/ML 3 ML PEN SC SCH ×4 (09:25→22:11)
[2020-11-27] MEDS ORDERED: FUROSEMIDE 60 MG in SYRINGE 0 ML IV ONE (09:30)
--- NOTE | 2020-11-27 13:41 | Palliative Care Consultation ---
Date of Consultation November 27, 2020 Assessment & Plan (1) Palliative care encounter: I talked with Gloria about her experience in the last ten days. She has also had a difficult past with the of a son and granddaughter. She is frustrated with her need for assistance with ADLs and feels humiliated with needing help for basic care. She has always seen herself as the caregiver and is having a difficult time being the one who needs care. She no longer feels that enjoys things that she used to enjoy and does not see much hope for the future. She repeatedly says that she is tired and ready to . When I asked her to tell me how she would see her dying time playing out, she said that she thought someone could just give her a shot and "end it all". We discussed the legal and ethical issues involved with that and I pointed out that she had wanted to be full code with full treatment prior to her surgery. She acknowledged this. We discussed that she can certainly choose how we proceed with her care moving forward and she tells me that she would not want CPR or intubation. She would want to naturally if her heart or breathing stopped. I also suggested that it can be common for people in her situation to have depression and she agreed. I asked her if she felt that she was depressed and she said yes. We discussed that perhaps depression was affecting her thoughts about her quality of life and wanting her life to end. She agreed with this. She is agreeable to trying antidepressant medication and continuing to discuss this. Palliative care will continue to follow. I did change her code status to DNR to reflect our discussion with her approval. (2) Depression: As above. Will start on paroxetine daily. (3) Respiratory failure: (4) E coli bacteremia: (5) Ascending cholangitis: (6) NSVT (nonsustained ventricular tachycardia): (7) Atrial flutter with rapid ventricular response: History of Present Illness Reason for Consultation: goals of care Requesting Physician: Dr. Trinh Attending Physician: Vanna Trinh MD History of Present Illness 80 yo lady who was admited with abdominal pain and found to have cholecystitis on CT. ERCP showed ascending cholangitis and she had stent placement with subsequent laparoscopic cholecystectomy. Her recovery has been complicated by E coli bacteremia, hypoxia and cardiac arrhythmias. She has been slowly improving but remains or 4-5 L of O2 and is severely deconditioned. She has expressed the desire to and we have been consulted to assist with clarifying goals of care. Allergies Allergy/AdvReac Type Severity Reaction Status Date / Time rosiglitazone Allergy Mild UNKNOWN-RELATED Verified 11/19/20 16:08 POSS TO DVT/PE PER MEDICAL RECORD acetaminophen Allergy Unknown HIVES Verified 11/19/20 16:08 latex Allergy Unknown "Tape Verified 11/19/20 16:08 causes redness" Penicillins Allergy Unknown SOB Unverified 11/19/20 16:08 ,THROAT SHUT,COULDN'T BREATHE tramadol Allergy Unknown UNKNOWN Verified 11/19/20 16:08 Home Medications Medication Instructions Recorded Confirmed Type anastrozole 1 mg tablet 1 mg PO DAILY 06/12/20 11/19/20 History clindamycin phosphate 1 % topical 1 appln TOP BID 06/12/20 11/19/20 History gel cyanocobalamin (vitamin B-12) 1,000 mcg PO DAILY 06/12/20 11/19/20 History 1,000 mcg tablet cyclobenzaprine 10 mg tablet 10 mg PO BID tab 06/12/20 11/19/20 History fluticasone propionate 50 2 sprays INTNAS DAILY 06/12/20 11/19/20 History mcg/actuation nasal spray,suspension furosemide 40 mg tablet 40 mg PO TUTHSA 06/12/20 11/19/20 History glipizide 5 mg tablet 5 mg PO BID 06/12/20 11/19/20 History insulin glargine 100 unit/mL 40 units SQ QAM 06/12/20 11/19/20 History subcutaneous solution insulin glargine 100 unit/mL 42 units SQ QPM ml 06/12/20 11/19/20 History subcutaneous solution lisinopril 10 mg tablet 10 mg PO DAILY 06/12/20 11/19/20 History metformin 1,000 mg tablet 1,000 mg PO BID 06/12/20 11/19/20 History metoprolol tartrate 100 mg tablet 100 mg PO BID 06/12/20 11/19/20 History potassium chloride 20 mEq 40 meq PO SUMOWEFR 06/12/20 11/19/20 History tablet,extended release pregabalin 200 mg capsule 200 mg PO BID 06/12/20 11/19/20 History acetaminophen [Tylenol] 325 mg PO Q4 PRN 11/19/20 11/19/20 History cholecalciferol (vitamin D3) 50 mcg PO Q2D 11/19/20 11/19/20 History cholecalciferol (vitamin D3) 25 mcg PO Q2D 11/19/20 11/19/20 History [Vitamin D3] furosemide [Lasix] 80 mg PO SUMOWEFR 11/19/20 11/19/20 History meclizine 25 mg PO TID PRN 11/19/20 11/19/20 History potassium chloride 20 meq PO TUTHSA 11/19/20 11/19/20 History turmeric root extract 500 mg PO DAILY 11/19/20 11/19/20 History warfarin 5 mg PO SUTUWETHSA 11/19/20 11/19/20 History warfarin 7.5 mg PO MOFR 11/19/20 11/19/20 History Patient History Medical History Atrial paroxysmal tachycardia Chronic venous insufficiency Diabetes mellitus with neuropathy DM type 2 (diabetes mellitus, type 2) Esophagitis, reflux Essential (primary) hypertension Generalized OA History of paroxysmal atrial tachycardia History of paroxysmal supraventricular tachycardia History of pulmonary embolism HTN (hypertension) USP (current) use of 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 Lymphedema, not elsewhere classified Malignant neoplasm of upper-outer quadrant of left female breast Moderate aortic stenosis Morbid (severe) obesity due to excess calories Obstructive sleep apnea (adult) (pediatric) PAD (peripheral artery disease) Vitamin D insufficiency Surgical History H/O left mastectomy Previous back surgery S/P hysterectomy S/P right rotator cuff repair Family History Other Family history non-contributory Social History Smoking Status: Never smoker Hx Alcohol Use: No Hx Substance Use: No Preferred Language: Arabic Communication Ability: Impaired Visual Impairment: Limited Hearing Ability: Normal Resident Doctor Required: No Beliefs That Will Affect Care: None marital status: Current Living Situation: Spouse current occupational status: retired Other Information That Helps Us Care for You: No Feels Safe at Home: Yes Safety Concerns: Feels Safe At This Time Assistive Devices: Oxygen - Continuous Review of Systems Review of Systems: [place]vel Symptom Assessment Scale Pain 0/3 Dyspnea 1/3 Nausea 0/3 Drowsiness 0/3 Anxiety 1/3 Depression 2/3 Constipation 1/3 Palliative Performance Score 40% Physical Exam Constitutional: + morbidly obese; no acute distress ENMT: Mouth: + dry oral mucous membranes Respiratory: normal respiratory effort; no labored breathing Neurologic: moves all extremities Psychiatric: Orientation: alert and oriented x 3 Affect: + anxious affect Mood: + depressed mood Results & Data ([facility]) Vital Signs (Past 12 Hours) Vital Signs Temp Pulse Pulse Resp BP Pulse Ox 11/27/20 11:30 98.1 F 66 20 154/75 H 96 11/27/20 07:27 61 11/27/20 04:15 97.5 F L 59 L 20 168/90 H 94 11/27/20 04:00 56 L PG Care Time/CCT Total # of Minutes Spent Total Time Spent with Patient: Total time spent is greater than 50% in coordination of care (as documented) at patient's floor/unit and/or counseling patient: total time spent is 70 minutes with more than 50% of time spent on counseling, symptom management and goals of care Coding Level of Care Code 96436 Inpt Consult Level 4 Diagnoses Palliative care encounter Z51.5 Depression F32.9 Respiratory failure J96.90 E coli bacteremia R78.81; B96.20 Ascending cholangitis K83.09 NSVT (nonsustained ventricular tachycardia) I47.2 Atrial flutter with rapid ventricular response I48.92
[2020-11-27 14:20] LABS: Partial Thromboplastin Ratio 2.6
[2020-11-27 14:25] LABS: Partial Thromboplastin Time 72.3 Seconds (21.0-31.0)
--- NOTE | 2020-11-27 14:28 | Pharmacy Report ---
Pharmacy Glycemic Short Note 2 - Date of Service November 27, 2020 - Glycemic Short BSG Results (Last 24 hours): 11/26/20 11/26/20 11/27/20 16:19 20:44 06:12 Glucose 140 H POC Glucose 127 H 128 H 11/27/20 11/27/20 08:09 11:46 Glucose POC Glucose 145 H 186 H ASSESSMENT: 11/27: * Patient received total of 25 units of insulin yesterday all of which was basal. * Fasting BSG this AM was 140 mg/dl. Will continue with current basal dose. * Patient is still on Heparin drip which is mixed in Dextrose 5% which can be contributing to the high BSG numbers. * Patient has not needed any bolus Novolog doses yesterday and refused the dose today AM. 11/25 * Patient received total of 60 units of insulin yesterday, of which 50 were basal insulin * BSGs well controlled over last 24 hrs despite PO intake poorer. Continues on heparin drip at high rates ~41 ml/hr (mixed in dextrose). May consider scaling back insulin if heparin drip were to stop PLAN FOR INPATIENT GLYCEMIC CONTROL: * Hold outpatient oral diabetes medications * Basal insulin: reduced * Lantus 25-30 units daily with dinner. * Bolus insulin: continued * NovoLog per scale ACHS or Q6hrs while NPO * Goal Range: Low 110 mg/dL - High 140 mg/dL * Correction Factor: 15 mg/dL/unit * Nutritional / Prandial insulin per carb ratio of 1 unit per 4 grams CHO consumed PLAN FOR DISCHARGE: * Patient's HbA1C is reasonable given her age and comorbidities. * Home insulin regimen consists of all basal insulin. Regimens like this can sometimes cause more frequent hypoglycemia, especially if diet is changing. Ideally would prefer a 50/50 split of insulin between basal/prandial. * Would ensure patient is not experiencing frequent hypoglycemia outpatient if outpatient regimen to be continued
--- NOTE | 2020-11-27 14:45 | Hospitalist Progress Note ---
Date of Service November 27, 2020 Assessment & Plan (1) Choledocholithiasis: (2) Ascending cholangitis: (3) Acute cholecystitis: Patient presented with epigastric abdominal pain that has been going on for the last 5 days prior to admission. CT abdomen/pelvis was consistent with acute cholecystitis and could represent early gangrenous change. Surgery was consulted. S/p ERCP on November 19 with Choledocholithiasis, ascending cholangitis, stents placed. S/p laparoscopic cholecystectomy on November 21. Was on cefepime and Flagyl, currently on ceftriaxone and Flagyl given blood cultures. Patient remains afebrile. White count is not concerning. (4) Sepsis: Resolved. Currently hemodynamically stable. Afebrile. White count is not concerning. (5) E coli bacteremia: Cultures from November 17 are positive for E. coli. Currently remains on IV ceftriaxone and Flagyl. Continues doxycycline as did not see any clinical reasoning Blood cultures from 11/21 - thus far. Cultures from 11/23 are negative thus far. Patient likely needs 2 weeks of antibiotic therapy. We will touch base with infectious disease for final recommendations. (6) UTI (urinary tract infection): Pansensitive E. coli. We will continue with ceftriaxone. (7) Atrial flutter with rapid ventricular response: (8) NSVT (nonsustained ventricular tachycardia): On 11/21 patient had an episode of SVT/V. tach/A. fib with RVR. Cardiology was consulted. Patient was started on heparin followed by Coumadin. Continue with Lopressor 100 mg twice daily, rate is well controlled. CT PE study was obtained which was negative. Transthoracic echo was obtained on 11/21 with a EF of 50%. Moderately calcified aortic valves and moderate valvular aortic stenosis. Patient is in normal sinus rhythm. Continue to p.o. amiodarone 400 mg twice daily. Have been bradycardic in the 50s. We will continue to monitor. Currently on Lopressor 100mg twice daily as well. We will touch base with cardiology for further input. (9) Hypoxia: Overnight patient was on 6 L of nasal cannula. She is down to 3.5 L. Adequate urine output in the last 24 hours. Will give another dose of IV Lasix 60 mg now. Continue monitor ins and outs along with daily weights. CT chest on admission without any concerning findings. Due to ongoing hypoxia, CTA was obtained which was negative for any pulmonary embolism. There is some component of obesity hypoventilation syndrome. Possible component of diastolic heart failure as well. Prior to admission patient takes p.o. Lasix 80 mg daily.lasix (10) SHAYNE (acute kidney injury): Resolved. Continue holding lisinopril. Hypokalemia -repleted (11) Left anterior fascicular block: (12) Elevated troponin: -Troponin 0.067 -> 0.06 -> 0.03 Likely demand in nature in the setting of sepsis. Cardiology is on board. Continue to monitor. (13) Lymphedema, not elsewhere classified: Continue to diurese. (14) History of pulmonary embolism: Continue with Coumadin, INR today at 1.8 Warfarin 6 mg daily. Currently on heparin bridge. (15) History of paroxysmal atrial tachycardia: (16) History of paroxysmal supraventricular tachycardia: Continue Lopressor 100 milligrams twice daily. Continue with amiodarone 400 mg twice daily. (17) DM type 2 (diabetes mellitus, type 2): -Hgb A1c 6.8 05/2020 -Lantus/NovoLog -Glycemic pharmacy consult (18) HTN (hypertension): Patient is hypertensive. Giving Lasix today. Will restart Lasix today given her hypertension. (19) History of breast cancer: -History of breast cancer s/p left mastectomy -CT chest showing A few small right breast nodules measure up to 13 mm. Nonemergent mammogram follow-up recommended. (20) LUZ MARIA (obstructive sleep apnea): -Noncompliant with CPAP -Encouraged follow-up with sleep medicine (21) DVT prophylaxis: -On IV heparin, continue with Coumadin (22) Depression: On 11/27 patient reported that she wants to . Stated that she have had enough. I offered her palliative services. Palliative medicine was consulted. There was concern for depression. Patient was started on paroxetine. Admission and Anticipated Discharge Date Admission Date: November 19, 2020 Subjective Morning patient was awake and alert. She was oriented to place and time. However she have had intermittent episodes of confusion likely due to delirium. Stating that she wants to . Would not give any specific reason what is bothering her. Review of system is mainly negative as she only answers limited questions. Night there were no major issues. Dynamically patient has been doing fine. Good urine output. Remains afebrile. She did report that she feels weak. Reports appetite is down and she does not feel like eating anything. Had multiple episodes of diarrhea overnight. Review of Systems Review of Systems: ROS per HPI, all other systems reviewed and negative Physical Exam Physical Exam: General: Awake and alert, oriented to place and time, chronically ill-appearing female HENT: NCAT, MMM, EOMI Eyes: PERRLA Neck: Supple, normal range of motion CVS: normal rate and rhythm Resp: b/l decreased breath sound Abdomen: Soft, nondistended, nontender, YURI drain in place with SS output Extremities: 4+ lower extremity edema, patient also noted to have significant bilateral upper remedies edema Neuro: No gross focal deficits appreciated Skin: warm and dry MSK: No joint swelling appreciated Fully catheter in place. Results & Data Results & Data ([facility]) Vital Signs (Past 12 Hours) Vital Signs Temp Pulse Pulse Resp BP Pulse Ox 11/27/20 11:30 36.7 C 66 20 154/75 H 96 11/27/20 07:27 61 11/27/20 04:15 36.4 C L 59 L 20 168/90 H 94 11/27/20 04:00 56 L (1) Sepsis Sepsis acute organ dysfunction status: unspecified Sepsis type: sepsis due to unspecified organism Qualified Code(s): A41.9 - Sepsis, unspecified organism
[2020-11-27] MEDS: cefTRIAXone SODIUM 2,000 MG in DEXTROSE 5% 50 ML IV SCH (15:21)
[2020-11-27] MEDS: lisinopril 10 MG TAB PO SCH (15:47)
[2020-11-27] MEDS: INSULIN GLARGINE 100 UNIT/ML VIAL SC SCH (17:31)
[2020-11-27] MEDS: WARFARIN SOD 6 MG TAB PO SCH (17:49)
[2020-11-27 20:42] LABS: Partial Thromboplastin Ratio 2.3
[2020-11-27 21:06] LABS: Partial Thromboplastin Time 64.3 Seconds (21.0-31.0)
[2020-11-28] MEDS: metroNIDAZOLE 500 MG/100 ML BAG IV SCH ×3 (00:22→15:39)
[2020-11-28 07:02] LABS: Prothrombin Time 20.3 Seconds (9.0-12.0)
[2020-11-28 07:11] LABS: Partial Thromboplastin Time 84.5 Seconds (21.0-31.0)
[2020-11-28] MEDS: HEPARIN SODIUM/DEXTROSE 25,000 UNITS/500 ML BAG IV SCH ×2 (07:28→21:33)
[2020-11-28 08:38] LABS: Hematocrit (blood only) 41.6 % (37-47); Hemoglobin 12.6 g/dL (12.0-16.0); Mean Corpuscular Hemoglobin 27.8 pg (25-34); Mean Corpuscular Hgb Conc 30.3 g/dL (32-36); Mean Corpuscular Volume 91.6 fL (80-100); Mean Platelet Volume 10.7 fL (7.4-10.4); Nucleated RBC # (auto) 0.02 K/uL (0-0); Nucleated RBC % (auto) 0.1 %; Platelet Count 396 K/uL (130-400); RDW Coefficient of Variation 15.8 % (11.5-14.5); RDW Standard Deviation 52.4 fL (36.4-46.3); Red Blood Count 4.54 M/uL (4.2-5.4); White Blood Count 11.26 K/uL (4.8-10.8)
[2020-11-28 09:00] LABS: ALC (manual) 0.88 K/uL (1.2-3.4); ANC (manual) 7.84 K/uL (1.4-6.5); Basophils % (manual) 0.9 %; Eosinophils # (manual) 0.48 K/uL (0-0.5); Eosinophils % (manual) 4.3 %; Lymphocytes # (manual) 0.88 K/uL (1.2-3.4); Lymphocytes % (manual) 7.8 %; Metamyelocytes # (manual) 0.29 K/uL (0-0); Metamyelocytes % (manual) 2.6 %; Monocytes # (manual) 0.59 K/uL (0.11-0.59); Monocytes % (manual) 5.2 %; Myelocytes # (manual) 1.08 K/uL (0-0); Myelocytes % (manual) 9.6 %; Neutrophils # (manual) 7.84 K/uL (1.4-6.5); Neutrophils % (manual) 69.6 %; Toxic Granulation 1+
[2020-11-28] MEDS: CYANOCOBALAMIN 500 MCG TABLET (VITAMIN B-12) PO SCH (09:01)
[2020-11-28] MEDS: INSULIN ASPART 100 UNITS/ML 3 ML PEN SC SCH ×4 (09:07→21:02)
[2020-11-28 09:08] LABS: Albumin Globulin Ratio 0.6 (0.9-2); Albumin Level 2.3 gm/dl (3.4-5.0); BUN Creatinine Ratio 14.4 (10-20); Bilirubin,Total 0.4 mg/dl (0.2-1); Calcium 8.7 mg/dl (8.5-10.1); Creatinine Clr Calc Pharmacy 132.4 ml/min; Est GFR (African American) 109.7; Est GFR (Non-African American) 94.6; Globulin 3.6 gm/dl (2.5-4.0); Potassium 3.7 mmol/L (3.5-5.1); Total Protein 5.9 gm/dl (6.4-8.2)
[2020-11-28] MEDS: lisinopril 10 MG TAB PO SCH (09:08)
[2020-11-28] MEDS: METOPROLOL TARTRATE 100 MG TAB PO SCH ×2 (09:09→21:01)
[2020-11-28] MEDS: AMIODARONE 200 MG TAB PO SCH ×2 (09:09→15:40)
[2020-11-28] MEDS: PARoxetine HCL 20 MG TAB PO SCH (10:11)
--- NOTE | 2020-11-28 11:08 | XRay Report ---
XR chest 1V portable CLINICAL HISTORY: Hypoxia COMPARISON STUDY: 11/26/2020 FINDINGS: The heart is enlarged. There is radiographic evidence of 40 vascular congestion. There are bilateral pleural effusions right greater than left associated basilar airspace opacities. Subsegment al atelectatic changes present within the left midlung zone.[ IMPRESSION: 1. Continued radiographic evidence of congestive failure/fluid overload with cardiomegaly and bilater al pleural effusions 2. There are associated bibasilar airspace opacities, atelectasis versus infectious/inflammatory. ACT 112: Negative or not required by law. Electronically signed by: Jasper Bennett M.D. 11/28/2020 11:07 AM
[2020-11-28] MEDS ORDERED: FUROSEMIDE 60 MG in SYRINGE 0 ML IV ONE (12:00)
--- NOTE | 2020-11-28 12:42 | Hospitalist Progress Note ---
Date of Service November 28, 2020 Assessment & Plan (1) Choledocholithiasis: (2) Ascending cholangitis: (3) Acute cholecystitis: Patient presented with epigastric abdominal pain that has been going on for the last 5 days prior to admission. CT abdomen/pelvis was consistent with acute cholecystitis and could represent early gangrenous change. Surgery was consulted. S/p ERCP on November 19 with Choledocholithiasis, ascending cholangitis, stents placed. S/p laparoscopic cholecystectomy on November 21. Was on cefepime and Flagyl, currently on ceftriaxone and Flagyl given blood cultures. Patient remains afebrile. White count is not concerning. (4) Sepsis: Resolved. Currently hemodynamically stable. Afebrile. White count elevated today. But not concerning. (5) E coli bacteremia: Cultures from November 17 are positive for E. coli. Currently remains on IV ceftriaxone and Flagyl. Continues doxycycline as did not see any clinical reasoning Blood cultures from 11/21 - thus far. Cultures from 11/23 are negative thus far. Patient likely needs 2 weeks of antibiotic therapy. We will touch base with infectious disease for final recommendations prior to discharge. (6) UTI (urinary tract infection): Pansensitive E. coli. We will continue with ceftriaxone. (7) Atrial flutter with rapid ventricular response: (8) NSVT (nonsustained ventricular tachycardia): On 11/21 patient had an episode of SVT/V. tach/A. fib with RVR. Cardiology was consulted. Patient was started on heparin followed by Coumadin. Continue with Lopressor 100 mg twice daily, rate is well controlled. CT PE study was obtained which was negative. Transthoracic echo was obtained on 11/21 with a EF of 50%. Moderately calcified aortic valves and moderate valvular aortic stenosis. Patient is in normal sinus rhythm. Continue to p.o. amiodarone 400 mg twice daily. Have been bradycardic in the 50s. We will continue to monitor. Currently on Lopressor 100mg twice daily as well. We will touch base with cardiology for further input. (9) Hypoxia: Patient remains on 6 L of nasal cannula. Adequate urine output in the last 24 hours. Will give another dose of IV Lasix 60 mg now. Continue monitor ins and outs along with daily weights. CT chest on admission without any concerning findings. Due to ongoing hypoxia, CTA was obtained which was negative for any pulmonary embolism. There is some component of obesity hypoventilation syndrome. Possible component of diastolic heart failure as well. Prior to admission patient takes p.o. Lasix 80 mg daily. Procalcitonin obtained today that is not concerning. (10) SHAYNE (acute kidney injury): Resolved. Continue holding lisinopril. Hypokalemia -repleted (11) Left anterior fascicular block: (12) Elevated troponin: -Troponin 0.067 -> 0.06 -> 0.03 Likely demand in nature in the setting of sepsis. Cardiology is on board. Continue to monitor. (13) Lymphedema, not elsewhere classified: Continue to diurese. (14) History of pulmonary embolism: Continue with Coumadin, INR today at 2. Continue daily 6 mg Coumadin. Will continue heparin today and likely to be discontinued tomorrow. (15) History of paroxysmal atrial tachycardia: (16) History of paroxysmal supraventricular tachycardia: Continue Lopressor 100 milligrams twice daily. Continue with amiodarone 400 mg twice daily. (17) DM type 2 (diabetes mellitus, type 2): -Hgb A1c 6.8 05/2020 -Lantus/NovoLog -Glycemic pharmacy consult (18) HTN (hypertension): In the 150s to 160s. (19) History of breast cancer: -History of breast cancer s/p left mastectomy -CT chest showing A few small right breast nodules measure up to 13 mm. Nonemergent mammogram follow-up recommended. (20) LUZ MARIA (obstructive sleep apnea): -Noncompliant with CPAP -Encouraged follow-up with sleep medicine (21) DVT prophylaxis: Continue on daily Coumadin. * (22) Depression: On 11/27 patient reported that she wants to . Stated that she have had enough. I offered her palliative services. Palliative medicine was consulted. There was concern for depression. Patient was started on paroxetine. Today she feels better. Admission and Anticipated Discharge Date Admission Date: November 19, 2020 Subjective Patient is in a better mood today. Does endorse depression but feels better after talking to palliative services yesterday. denies any shortness of breath but does report productive cough. Denies any fever or diaphoresis. Denies any chest pain or palpitations. Does report intermittent mild abdominal pain. Also reports that she has been having diarrhea. Denies any nausea or vomiting. Adequate urine output the last 24 hours post Lasix. Physical Exam Physical Exam: General: Awake and alert, oriented to place and time, chronically ill-appearing female HENT: NCAT, MMM, EOMI Eyes: PERRLA Neck: Supple, normal range of motion CVS: normal rate and rhythm Resp: b/l decreased breath sound Abdomen: Soft, nondistended, nontender, YURI drain in place with SS output Extremities: 4+ lower extremity edema, patient also noted to have significant bilateral upper remedies edema Neuro: No gross focal deficits appreciated Skin: warm and dry MSK: No joint swelling appreciated Fully catheter in place. Results & Data Results & Data ([facility]) Vital Signs (Past 12 Hours) Vital Signs Temp Pulse Pulse Resp BP Pulse Ox 11/28/20 11:50 36.7 C 59 L 22 151/61 H 95 11/28/20 09:00 61 11/28/20 07:32 36.6 C 63 22 174/76 H 94 11/28/20 04:16 37.2 C 66 22 155/83 H 96 11/28/20 01:14 61 (1) Sepsis Sepsis acute organ dysfunction status: unspecified Sepsis type: sepsis due to unspecified organism Qualified Code(s): A41.9 - Sepsis, unspecified organism
--- NOTE | 2020-11-28 12:53 | Palliative Care Progress Note ---
Date of Service November 28, 2020 Assessment & Plan (1) Depression: Started on paroxetine this morning. Her mood is a little better. She is talking about asking God to give her the strength to get through this rather that to let her . She reports that her had a good conversation with their granddaughter who was somewhat estranged and that is a relief for her. We discussed paroxetine will take some time to see full benefit but pleased to see that she is having a better day today. (2) Palliative care encounter: DNR/DNI. She had been talking about wanting to which seems rooted in frustration with her physical debility and depression. Admission and Anticipated Discharge Date Admission Date: November 19, 2020 Subjective Ate a little bit at breakfast. Spoke to her who is very supportive. Overall feels a little better than yesterday. Review of Systems Review of Systems: [place] Symptom Assessment Scale Pain 0/3 Nausea 0/3 Dyspnea 1/3 Fatigue 2/3 Anxiety 1/3 Depression 2/3 Drowsiness 0/3 Palliative Performance Score 30% Physical Exam Constitutional: + morbidly obese and comfortable; no acute distress ENMT: Ears: no hearing impairment Respiratory: normal respiratory effort; no labored breathing Musculoskeletal: Extremities: extremities normal to inspection Skin: warm and dry Neurologic: moves all extremities and awake; not confused Psychiatric: Orientation: alert and oriented x 3 Eye Contact: good eye contact Affect: euthymic affect Mood: + depressed mood Results & Data ([facility]) Vital Signs (Past 12 Hours) Vital Signs Temp Pulse Pulse Resp BP Pulse Ox 11/28/20 11:50 98.1 F 59 L 22 151/61 H 95 11/28/20 09:00 61 11/28/20 07:32 97.9 F 63 22 174/76 H 94 11/28/20 04:16 99.0 F 66 22 155/83 H 96 11/28/20 01:14 61 PG Care Time/CCT Total # of Minutes Spent Total Time Spent with Patient: Total time spent is greater than 50% in coordination of care (as documented) at patient's floor/unit and/or counseling patient: Total time spent 35 min with more than 50% of time spent on counseling and support. Coding Level of Care Code 82988 Subseq Hosp Care Lvl 3 Diagnoses Depression F32.9 Palliative care encounter Z51.5
[2020-11-28] MEDS: cefTRIAXone SODIUM 2,000 MG in DEXTROSE 5% 50 ML IV SCH (14:21)
[2020-11-28 14:25] LABS: Partial Thromboplastin Ratio 2.6
[2020-11-28 14:40] LABS: Partial Thromboplastin Time 72.9 Seconds (21.0-31.0)
[2020-11-28] MEDS: WARFARIN SOD 6 MG TAB PO SCH (15:39)
[2020-11-28] MEDS: INSULIN GLARGINE 100 UNIT/ML VIAL SC SCH (17:09)
[2020-11-28 18:52] LABS: Influenza A virus by PCR Negative (Neg); Influenza B virus by PCR Negative (Neg); RSV by PCR Negative (Neg); SARS CoV2 RNA(COVID-19) InHosp NEGATIVE (Negative)
[2020-11-28 21:24] LABS: Partial Thromboplastin Ratio 2.7
[2020-11-28 21:26] LABS: Partial Thromboplastin Time 76.6 Seconds (21.0-31.0)
[2020-11-29] MEDS: metroNIDAZOLE 500 MG/100 ML BAG IV SCH ×3 (00:23→16:02)
[2020-11-29 04:48] LABS: Partial Thromboplastin Ratio 2.9
[2020-11-29 04:51] LABS: Partial Thromboplastin Time 82.3 Seconds (21.0-31.0)
[2020-11-29 08:01] LABS: Hematocrit (blood only) 41.4 % (37-47); Hemoglobin 12.3 g/dL (12.0-16.0); Mean Corpuscular Hemoglobin 27.6 pg (25-34); Mean Corpuscular Hgb Conc 29.7 g/dL (32-36); Mean Corpuscular Volume 92.8 fL (80-100); Mean Platelet Volume 11.1 fL (7.4-10.4); Platelet Count 377 K/uL (130-400); RDW Coefficient of Variation 15.9 % (11.5-14.5); RDW Standard Deviation 53.2 fL (36.4-46.3); Red Blood Count 4.46 M/uL (4.2-5.4)
[2020-11-29] MEDS: AMIODARONE 200 MG TAB PO SCH ×2 (08:11→17:28)
[2020-11-29] MEDS: CYANOCOBALAMIN 500 MCG TABLET (VITAMIN B-12) PO SCH (08:11)
[2020-11-29] MEDS: METOPROLOL TARTRATE 100 MG TAB PO SCH (08:11)
[2020-11-29] MEDS: lisinopril 10 MG TAB PO SCH (08:12)
[2020-11-29] MEDS: PARoxetine HCL 20 MG TAB PO SCH (08:12)
[2020-11-29 08:13] LABS: INR 2.4 (0.9-1.1); Prothrombin Time 24.5 Seconds (9.0-12.0)
[2020-11-29] MEDS: INSULIN ASPART 100 UNITS/ML 3 ML PEN SC SCH ×4 (08:14→20:54)
[2020-11-29 08:51] LABS: ALC (manual) 1.18 K/uL (1.2-3.4); ANC (manual) 7.08 K/uL (1.4-6.5); Basophils % (manual) 0.9 %; Eosinophils % (manual) 1.8 %; Lymphocytes # (manual) 1.18 K/uL (1.2-3.4); Lymphocytes % (manual) 10.6 %; Metamyelocytes # (manual) 0.39 K/uL (0-0); Metamyelocytes % (manual) 3.5 %; Monocytes # (manual) 1.08 K/uL (0.11-0.59); Monocytes % (manual) 9.7 %; Myelocytes # (manual) 1.08 K/uL (0-0); Myelocytes % (manual) 9.7 %; Neutrophils # (manual) 7.08 K/uL (1.4-6.5); Neutrophils % (manual) 63.8 %
[2020-11-29 09:36] LABS: Albumin Globulin Ratio 0.6 (0.9-2); Albumin Level 2.3 gm/dl (3.4-5.0); BUN Creatinine Ratio 11.9 (10-20); Bilirubin,Total 0.3 mg/dl (0.2-1); Calcium 8.4 mg/dl (8.5-10.1); Creatinine Clr Calc Pharmacy 111.1 ml/min; Est GFR (African American) 103.5; Est GFR (Non-African American) 89.3; Globulin 3.6 gm/dl (2.5-4.0); Potassium 3.2 mmol/L (3.5-5.1); Total Protein 5.9 gm/dl (6.4-8.2)
--- NOTE | 2020-11-29 10:08 | Pharmacy Report ---
Glycemic Control Progress Note - Date of Service November 29, 2020 - Scope Glycemic Pharmacist consulted for glycemic control to write orders per [facility] inpatient glycemic control protocol. - Objective Accuchecks BSG(last 24 hours):: 11/28/20 11/28/20 11/28/20 11:47 16:35 19:56 Glucose POC Glucose 150 H 148 H 125 H 11/29/20 11/29/20 07:04 07:26 Glucose 114 H POC Glucose 108 H HbA1c:: Hemoglobin A1c 7.4 % (4.5-5.6) H 11/20/20 05:41 - Recent Pertinent Medications The patient is currently receiving: * Basal insulin: Lantus 25 units every 24 hours * Correctional Insulin: Novolog Correction per scale ACHS Goal Range: Low 110 mg/dL - High 140 mg/dL Correction Factor: 15 mg/dL/unit * Prandial insulin: Per carb ratio of 1 unit per 4 grams CHO consumed - Outpatient Anti-Diabetic Meds Lantus 40 units in the morning Lantus 42 units in the evening Glipizide 5 mg BID - Assessment & Plan ASSESSMENT: * See progress note from 11/20/20 for more background info, in short: * Pt receiving SQ basal bolus insulin regimen for hyperglycemia secondary to baseline DM (outpatient regimen on hold),stress/infection (currently on Rocephin and Flagyl), and poor PO intake. Patient does continue on heparin infusion at 27 mL/hr. * Patient is currently receiving an average of 31 units of insulin per day * 25 units of basal insulin * 6 units of prandial/correctional insulin * BSGs ranging 127 - 150 mg/dl over the past 24hrs * Changes needed to insulin regimen: * AM Fasting BSG = 108 mg/dl. This is below goal range for patient based on inpatient targets and co-morbidities. Patient has had poor PO intake for several days. Reduce basal today to 20 units (25 units if BSG > 160 mg/dL). * Post-prandial BSGs are steady. Due to decreasing basal requirements, will loosen CF/CR. * Total daily dose is TBD as patient's PO intake significantly decreased. PLAN FOR INPATIENT GLYCEMIC CONTROL: * Decreasing Lantus 20 units SQ with dinner (25 units if BSG > 160 mg/dL) * LOOSENING correction factor to 20 mg/dl/unit * LOOSENING carb ratio to 1 unit per 6 grams CHO consumed * Continuing goal range of Low 110 mg/dL - High 140 mg/dL RECOMMENDATIONS FOR DISCHARGE: * Patient's HbA1C is reasonable given her age and comorbidities. * A tighter goal would be HbA1C of ~7% while hers is currently 7.4%. * Would recommend discussing insulin coverage with provider and consider addition of Novolog with largest meal of the day. * Recommend discontinuation of glipizide as when used in combination with Lantus has a higher rate of hypoglycemia. Thank you.
[2020-11-29] MEDS: HEPARIN SODIUM/DEXTROSE 25,000 UNITS/500 ML BAG IV SCH ×2 (10:54→15:58)
[2020-11-29 11:16] LABS: Partial Thromboplastin Ratio 2.5
[2020-11-29 11:20] LABS: Partial Thromboplastin Time 69.2 Seconds (21.0-31.0)
--- NOTE | 2020-11-29 12:11 | Hospitalist Progress Note ---
Date of Service November 29, 2020 Assessment & Plan (1) Choledocholithiasis: (2) Ascending cholangitis: (3) Acute cholecystitis: Patient presented with epigastric abdominal pain that has been going on for the last 5 days prior to admission. CT abdomen/pelvis was consistent with acute cholecystitis and could represent early gangrenous change. Surgery was consulted. S/p ERCP on November 19 with Choledocholithiasis, ascending cholangitis, stents placed. S/p laparoscopic cholecystectomy on November 21. Was on cefepime and Flagyl, currently on ceftriaxone and Flagyl given blood cultures. Patient remains afebrile. White count is not concerning. (4) Sepsis: Resolved. Currently hemodynamically stable. Afebrile. White count elevated today. But not concerning. (5) E coli bacteremia: Cultures from November 17 are positive for E. coli. Currently remains on IV ceftriaxone and Flagyl. Continues doxycycline as did not see any clinical reasoning Blood cultures from 11/21 - thus far. Cultures from 11/23 are negative thus far. Patient likely needs 2 weeks of antibiotic therapy. We will touch base with infectious disease for final recommendations prior to discharge. (6) UTI (urinary tract infection): Pansensitive E. coli. We will continue with ceftriaxone. (7) Atrial flutter with rapid ventricular response: (8) NSVT (nonsustained ventricular tachycardia): On 11/21 patient had an episode of SVT/V. tach/A. fib with RVR. Cardiology was consulted. Patient was started on heparin followed by Coumadin. CT PE study was obtained which was negative. Transthoracic echo was obtained on 11/21 with a EF of 50%. Moderately calcified aortic valves and moderate valvular aortic stenosis. Patient is in normal sinus rhythm. Continue to p.o. amiodarone 400 mg twice daily. Given bradycardia, will hold Lopressor. (9) Hypoxia: Acute hypoxic respiratory failure possibly secondary to diastolic heart failure Patient remains on 6 L of nasal cannula. Adequate urine output in the last 24 hours. Start patient IV Lasix 40 mg twice daily. CX-ray from 11/28 with congestive heart failure. Continue monitor ins and outs along with daily weights. CT chest on admission without any concerning findings. Due to ongoing hypoxia, CTA was obtained which was negative for any pulmonary em bolism. There is some component of obesity hypoventilation syndrome. Prior to admission patient takes p.o. Lasix 80 mg daily. Procalcitonin obtained recently that is not concerning. (10) SHAYNE (acute kidney injury): Resolved. Continue holding lisinopril. Hypokalemia -repleted (11) Left anterior fascicular block: (12) Elevated troponin: -Troponin 0.067 -> 0.06 -> 0.03 Likely demand in nature in the setting of sepsis. Cardiology is on board. Continue to monitor. (13) Lymphedema, not elsewhere classified: Continue to diurese. (14) History of pulmonary embolism: Continue with Coumadin, INR today at 2.4 Continue daily 2.5 mg Coumadin. Heparin discontinued (15) History of paroxysmal atrial tachycardia: (16) History of paroxysmal supraventricular tachycardia: Lopressor 100 milligrams twice daily on hold. Continue with amiodarone 400 mg twice daily. (17) DM type 2 (diabetes mellitus, type 2): -Hgb A1c 6.8 05/2020 -Lantus/NovoLog -Glycemic pharmacy consult (18) HTN (hypertension): In the 150s to 160s. (19) History of breast cancer: -History of breast cancer s/p left mastectomy -CT chest showing A few small right breast nodules measure up to 13 mm. Nonemergent mammogram follow-up recommended. (20) LUZ MARIA (obstructive sleep apnea): -Noncompliant with CPAP -Encouraged follow-up with sleep medicine (21) DVT prophylaxis: Continue on daily Coumadin. (22) Depression: On 11/27 patient reported that she wants to . Stated that she have had enough. I offered her palliative services. Palliative medicine was consulted. There was concern for depression. Patient was started on paroxetine. Today she feels better. Admission and Anticipated Discharge Date Admission Date: November 19, 2020 Subjective Patient is sitting on the recliner this morning. Currently she remains on 6 L of nasal cannula. Reports breathing is about the same. Urine output of 2.1 L in the last 24 hours. Continues to have productive cough. Eyes any chest pain, abdominal pain or any other weakness. Review of Systems Review of Systems: All systems reviewed & are unremarkable except as noted in HPI & below Physical Exam Physical Exam: General: Awake and alert, oriented to place and time, chronically ill-appearing female HENT: NCAT, MMM, EOMI Eyes: PERRLA Neck: Supple, normal range of motion CVS: normal rate and rhythm Resp: b/l decreased breath sound Abdomen: Soft, nondistended, nontender, YURI drain in place with SS output Extremities: 4+ lower extremity edema, patient also noted to have significant bilateral upper remedies edema Neuro: No gross focal deficits appreciated Skin: warm and dry MSK: No joint swelling appreciated Fully catheter in place. Results & Data Results & Data ([facility]) Vital Signs (Past 12 Hours) Vital Signs Temp Pulse Pulse Resp BP Pulse Ox 11/29/20 11:35 36.4 C L 44 L 19 135/58 L 97 11/29/20 09:00 60 11/29/20 07:58 36.5 C 58 L 19 150/66 H 94 11/29/20 03:14 36.6 C 53 L 20 166/77 H 95 (1) Sepsis Sepsis acute organ dysfunction status: unspecified Sepsis type: sepsis due to unspecified organism Qualified Code(s): A41.9 - Sepsis, unspecified organism
[2020-11-29] MEDS: FUROSEMIDE 40 MG in SYRINGE 0 ML IV SCH ×2 (12:40→21:03)
[2020-11-29] MEDS: cefTRIAXone SODIUM 2,000 MG in DEXTROSE 5% 50 ML IV SCH (14:02)
[2020-11-29] MEDS: ONDANSETRON INJ 2 MG/ML 2 ML VIAL IV PRN (16:29)
[2020-11-29] MEDS: INSULIN GLARGINE 100 UNIT/ML VIAL SC SCH (17:29)
[2020-11-29] MEDS: POTASSIUM CHLORIDE CRTAB 20 MEQ TABCR PO SCH (21:03)
[2020-11-30] MEDS: metroNIDAZOLE 500 MG/100 ML BAG IV SCH (00:35)
[2020-11-30] MEDS: POTASSIUM CHLORIDE CRTAB 20 MEQ TABCR PO SCH ×2 (07:45→20:18)
[2020-11-30] MEDS: CYANOCOBALAMIN 500 MCG TABLET (VITAMIN B-12) PO SCH (07:46)
[2020-11-30] MEDS: lisinopril 10 MG TAB PO SCH (07:46)
[2020-11-30] MEDS: PARoxetine HCL 20 MG TAB PO SCH (07:46)
[2020-11-30] MEDS: FUROSEMIDE 40 MG in SYRINGE 0 ML IV SCH ×2 (07:48→20:19)
[2020-11-30] MEDS: INSULIN ASPART 100 UNITS/ML 3 ML PEN SC SCH ×4 (07:49→20:58)
[2020-11-30] MEDS: AMIODARONE 200 MG TAB PO SCH ×2 (08:38→17:20)
[2020-11-30 09:07] LABS: Albumin Globulin Ratio 0.6 (0.9-2); Albumin Level 2.2 gm/dl (3.4-5.0); Bilirubin,Total 0.3 mg/dl (0.2-1); Calcium 8.4 mg/dl (8.5-10.1); Creatinine Clr Calc Pharmacy 102.9 ml/min; Est GFR (African American) 101.7; Est GFR (Non-African American) 87.8; Globulin 3.6 gm/dl (2.5-4.0); Potassium 3.4 mmol/L (3.5-5.1); Total Protein 5.8 gm/dl (6.4-8.2)
--- NOTE | 2020-11-30 12:32 | Hospitalist Progress Note ---
Date of Service November 30, 2020 Assessment & Plan (1) Choledocholithiasis: (2) Ascending cholangitis: (3) Acute cholecystitis: Patient presented with epigastric abdominal pain that has been going on for the last 5 days prior to admission. CT abdomen/pelvis was consistent with acute cholecystitis and could represent early gangrenous change. Surgery was consulted. S/p ERCP on November 19 with Choledocholithiasis, ascending cholangitis, stents placed. S/p laparoscopic cholecystectomy on November 21. Currently on ceftriaxone day 10. Needs 4 more days of ceftriaxone therapy. Patient remains afebrile. White count is not concerning. (4) Sepsis: Resolved. Currently hemodynamically stable. Afebrile. White count elevated today. But not concerning. COVID 19 was ruled out again on 11/28 (5) E coli bacteremia: Cultures from November 17 are positive for E. coli. Currently remains on IV ceftriaxone and Flagyl. Continues doxycycline as did not see any clinical reasoning Blood cultures from 11/21 - thus far. Cultures from 11/23 are negative thus far. Today is day 10 for ceftriaxone. Needs 4 more days of antibiotic therapy. (6) UTI (urinary tract infection): Pansensitive E. coli. We will continue with ceftriaxone. (7) Atrial flutter with rapid ventricular response: (8) NSVT (nonsustained ventricular tachycardia): On 11/21 patient had an episode of SVT/V. tach/A. fib with RVR. Cardiology was consulted. Patient was started on heparin followed by Coumadin. CT PE study was obtained which was negative. Transthoracic echo was obtained on 11/21 with a EF of 50%. Moderately calcified aortic valves and moderate valvular aortic stenosis. Patient is in normal sinus rhythm. We will decrease p.o. amiodarone to 200 mg twice daily. Given bradycardia, will hold Lopressor. (9) Hypoxia: Acute hypoxic respiratory failure possibly secondary to diastolic heart failure Patient is weaned down to 3 L of nasal cannula. Adequate urine output in the last 24 hours. Start patient IV Lasix 40 mg twice daily. CX-ray from 11/28 with congestive heart failure. Continue monitor ins and outs along with daily weights. CT chest on admission without any concerning findings. Started on IV Lasix 40 mg twice daily. Continue to monitor ins and outs along with daily weights. Due to ongoing hypoxia, CTA was obtained which was negative for any pulmonary embolism. There is some component of obesity hypoventilation syndrome. Prior to admission patient takes p.o. Lasix 80 mg daily. Procalcitonin obtained recently that is not concerning. (10) SHAYNE (acute kidney injury): Resolved. Continue holding lisinopril. Hypokalemia -repleted (11) Left anterior fascicular block: (12) Elevated troponin: -Troponin 0.067 -> 0.06 -> 0.03 Likely demand in nature in the setting of sepsis. Cardiology is on board. Continue to monitor. (13) Lymphedema, not elsewhere classified: Continue to diurese. (14) History of pulmonary embolism: Continue with Coumadin, INR today is pending. Continue daily 2.5 mg Coumadin. (15) History of paroxysmal atrial tachycardia: (16) History of paroxysmal supraventricular tachycardia: Lopressor 100 milligrams twice daily on hold. Decreased amiodarone to 200 mg daily. (17) DM type 2 (diabetes mellitus, type 2): -Hgb A1c 6.8 05/2020 -Lantus/NovoLog -Glycemic pharmacy consult (18) HTN (hypertension): improved, in the 140s now. (19) History of breast cancer: -History of breast cancer s/p left mastectomy -CT chest showing A few small right breast nodules measure up to 13 mm. Nonemergent mammogram follow-up recommended. (20) LUZ MARIA (obstructive sleep apnea): -Noncompliant with CPAP -Encouraged follow-up with sleep medicine (21) DVT prophylaxis: Continue on daily Coumadin. (22) Depression: On 11/27 patient reported that she wants to . Stated that she have had enough. I offered her palliative services. Palliative medicine was consulted. There was concern for depression. Patient was started on paroxetine. Continues to show improvement. Admission and Anticipated Discharge Date Admission Date: November 19, 2020 Subjective Doing okay this morning. Currently down to 3 L of nasal cannula. Urine output of 3 L in the last 24 hours. Did have breakfast this morning. No new complaints. Physical Exam Physical Exam: General: Awake and alert, oriented to place and time, chronically ill-appearing female HENT: NCAT, MMM, EOMI Eyes: PERRLA Neck: Supple, normal range of motion CVS: normal rate and rhythm Resp: b/l decreased breath sound Abdomen: Soft, nondistended, nontender, YURI drain in place with SS output Extremities: 4+ lower extremity edema, patient also noted to have significant bilateral upper remedies edema Neuro: No gross focal deficits appreciated Skin: warm and dry MSK: No joint swelling appreciated Fully catheter in place. Results & Data Results & Data ([facility]) Vital Signs (Past 12 Hours) Vital Signs Temp Pulse Pulse Resp BP Pulse Ox 11/30/20 11:31 36.8 C 63 18 112/70 92 11/30/20 07:29 56 L 11/30/20 07:14 36.8 C 73 16 182/84 H 92 11/30/20 03:17 36.9 C 52 L 20 142/70 H 91 (1) Sepsis Sepsis acute organ dysfunction status: unspecified Sepsis type: sepsis due to unspecified organism Qualified Code(s): A41.9 - Sepsis, unspecified organism
[2020-11-30 12:55] LABS: INR 2.4 (0.9-1.1); Prothrombin Time 24.5 Seconds (9.0-12.0)
[2020-11-30] MEDS: cefTRIAXone SODIUM 2,000 MG in DEXTROSE 5% 50 ML IV SCH (14:07)
[2020-11-30] MEDS: WARFARIN SOD 2.5 MG TAB PO SCH (17:20)
[2020-11-30] MEDS: INSULIN GLARGINE 100 UNIT/ML VIAL SC SCH (17:27)
[2020-12-01 06:37] LABS: INR 2.3 (0.9-1.1); Prothrombin Time 22.8 Seconds (9.0-12.0)
[2020-12-01 07:12] LABS: Albumin Globulin Ratio 0.6 (0.9-2); Albumin Level 2.2 gm/dl (3.4-5.0); BUN Creatinine Ratio 14.5 (10-20); Bilirubin,Total 0.4 mg/dl (0.2-1); Calcium 8.6 mg/dl (8.5-10.1); Creatinine Clr Calc Pharmacy 122.8 ml/min; Est GFR (African American) 107.4; Est GFR (Non-African American) 92.7; Globulin 3.5 gm/dl (2.5-4.0); Potassium 3.4 mmol/L (3.5-5.1); Total Protein 5.7 gm/dl (6.4-8.2)
[2020-12-01] MEDS: POTASSIUM CHLORIDE CRTAB 20 MEQ TABCR PO SCH ×2 (07:44→20:58)
[2020-12-01] MEDS: AMIODARONE 200 MG TAB PO SCH ×2 (07:44→16:47)
[2020-12-01] MEDS: lisinopril 10 MG TAB PO SCH (07:45)
[2020-12-01] MEDS: CYANOCOBALAMIN 500 MCG TABLET (VITAMIN B-12) PO SCH (07:45)
[2020-12-01] MEDS: PARoxetine HCL 20 MG TAB PO SCH (07:45)
[2020-12-01] MEDS: INSULIN ASPART 100 UNITS/ML 3 ML PEN SC SCH ×4 (07:47→20:57)
[2020-12-01] MEDS: FUROSEMIDE 40 MG in SYRINGE 0 ML IV SCH ×2 (08:15→20:56)
[2020-12-01] MEDS ORDERED: MICONAZOLE NITRATE POWDER 43 GM EXT PRN (11:35)
--- NOTE | 2020-12-01 12:22 | Hospitalist Progress Note ---
Date of Service December 01, 2020 Assessment & Plan (1) Choledocholithiasis: (2) Ascending cholangitis: (3) Acute cholecystitis: Patient presented with epigastric abdominal pain that has been going on for the last 5 days prior to admission. CT abdomen/pelvis was consistent with acute cholecystitis and could represent early gangrenous change. Surgery was consulted. S/p ERCP on November 19 with Choledocholithiasis, ascending cholangitis, stents placed. S/p laparoscopic cholecystectomy on November 21. Currently on ceftriaxone day 10. Needs 3 more days of ceftriaxone therapy. Patient remains afebrile. White count is not concerning. Medically patient is okay to be discharged. Currently awaiting authorization and placement. (4) Sepsis: Resolved. Currently hemodynamically stable. Afebrile. COVID 19 was ruled out again on 11/28 (5) E coli bacteremia: Cultures from November 17 are positive for E. coli. Currently remains on IV ceftriaxone and Flagyl. Continues doxycycline as did not see any clinical reasoning Blood cultures from 11/21 - thus far. Cultures from 11/23 are negative thus far. Today is day 10 for ceftriaxone. Needs 3 more days of antibiotic therapy. (6) UTI (urinary tract infection): Pansensitive E. coli. We will continue with ceftriaxone. (7) Atrial flutter with rapid ventricular response: (8) NSVT (nonsustained ventricular tachycardia): On 11/21 patient had an episode of SVT/V. tach/A. fib with RVR. Cardiology was consulted. Patient was started on heparin followed by Coumadin. CT PE study was obtained which was negative. Transthoracic echo was obtained on 11/21 with a EF of 50%. Moderately calcified aortic valves and moderate valvular aortic stenosis. Patient is in normal sinus rhythm. We will decrease p.o. amiodarone to 200 mg twice daily. Given bradycardia, will hold Lopressor. (9) Hypoxia: Acute hypoxic respiratory failure possibly secondary to diastolic heart failure Patient is weaned down to 3 L of nasal cannula. Adequate urine output in the last 24 hours. Start patient IV Lasix 40 mg twice daily. CX-ray from 11/28 with congestive heart failure. Continue monitor ins and outs along with daily weights. CT chest on admission without any concerning findings. Due to ongoing hypoxia, CTA was obtained which was negative for any pulmonary embolism. There is some component of obesity hypoventilation syndrome. Prior to admission patient takes p.o. Lasix 80 mg daily. Procalcitonin obtained recently that is not concerning. (10) SHAYNE (acute kidney injury): Resolved. Continue holding lisinopril. Hypokalemia -repleted (11) Left anterior fascicular block: (12) Elevated troponin: -Troponin 0.067 -> 0.06 -> 0.03 Likely demand in nature in the setting of sepsis. Cardiology is on board. Continue to monitor. (13) Lymphedema, not elsewhere classified: Continue to diurese. (14) History of pulmonary embolism: Continue with Coumadin, INR today is 2.3 Continue daily 2.5 mg Coumadin. (15) History of paroxysmal atrial tachycardia: (16) History of paroxysmal supraventricular tachycardia: Lopressor 100 milligrams twice daily on hold. Decreased amiodarone to 200 mg daily. Bradycardia is resolved. (17) DM type 2 (diabetes mellitus, type 2): -Hgb A1c 6.8 05/2020 -Lantus/NovoLog -Glycemic pharmacy consult (18) HTN (hypertension): improved, in the 140s now. (19) History of breast cancer: -History of breast cancer s/p left mastectomy -CT chest showing A few small right breast nodules measure up to 13 mm. Nonemergent mammogram follow-up recommended. (20) LUZ MARIA (obstructive sleep apnea): -Noncompliant with CPAP -Encouraged follow-up with sleep medicine (21) DVT prophylaxis: Continue on daily Coumadin. (22) Depression: On 11/27 patient reported that she wants to . Stated that she have had enough. I offered her palliative services. Palliative medicine was consulted. There was concern for depression. Patient was started on paroxetine. Continues to show improvement. Admission and Anticipated Discharge Date Admission Date: November 19, 2020 Subjective Doing okay this morning. Urine output of 2.6 L in the last 24 hours. Remains stable on 3 L of nasal cannula. Patient does not have any new complaints. Appetite is improving. Rest of the review of system is negative. Review of Systems Review of Systems: All systems reviewed & are unremarkable except as noted in HPI & below Physical Exam Physical Exam: General: Awake and alert, oriented to place and time, chronically ill-appearing female HENT: NCAT, MMM, EOMI Eyes: PERRLA Neck: Supple, normal range of motion CVS: normal rate and rhythm Resp: b/l decreased breath sound Abdomen: Soft, nondistended, nontender, YURI drain in place with SS output Extremities: 4+ lower extremity edema, patient also noted to have significant bilateral upper remedies edema Neuro: No gross focal deficits appreciated Skin: warm and dry MSK: No joint swelling appreciated Fully catheter in place. Results & Data Results & Data ([facility]) Vital Signs (Past 12 Hours) Vital Signs Temp Pulse Pulse Resp BP Pulse Ox 12/01/20 11:00 36.7 C 75 22 112/93 96 12/01/20 07:10 36.8 C 69 24 117/59 L 92 12/01/20 07:00 65 12/01/20 04:03 37 C 75 16 138/77 92 (1) Sepsis Sepsis acute organ dysfunction status: unspecified Sepsis type: sepsis due to unspecified organism Qualified Code(s): A41.9 - Sepsis, unspecified organism
--- NOTE | 2020-12-01 12:29 | Palliative Care Progress Note ---
Date of Service December 01, 2020 Assessment & Plan (1) Depression: Slowly improving on paroxetine. We talked about benefits to mood from increased activity. She is anxious about going to rehab. She talks about wanting to keep going and asking for God's help. Continue paroxetine and monit or. (2) Palliative care encounter: Admission and Anticipated Discharge Date Admission Date: November 19, 2020 Subjective Sitting up in chair. Denies pain. Did have some nausea this morning. Appetite is fair. She is sleeping well. Review of Systems Review of Systems: [place] Symptom Assessment Scale Pain 0/3 Dyspnea 1/3 Nausea 1/3 Fatigue 2/3 Anorexia 1/3 Drowsiness 0/3 Palliative Performance Score 40% Physical Exam Constitutional: + morbidly obese; no acute distress ENMT: Mouth: + dry oral mucous membranes Respiratory: + uses accessory muscles Cardiovascular: Extremities: + edema Gastrointestinal (Abdomen): Inspection/Auscultation: + significant pannus Musculoskeletal: Extremities: + chronic stasis changes Skin: warm and dry Neurologic: awake; not confused Psychiatric: Orientation: alert and oriented x 3 Eye Contact: good eye contact Results & Data ([facility]) Vital Signs (Past 12 Hours) Vital Signs Temp Pulse Pulse Resp BP Pulse Ox 12/01/20 11:00 98.1 F 75 22 112/93 96 12/01/20 07:10 98.2 F 69 24 117/59 L 92 12/01/20 07:00 65 12/01/20 04:03 98.6 F 75 16 138/77 92 PG Care Time/CCT Total # of Minutes Spent Total Time Spent with Patient: Total time spent is greater than 50% in coor dination of care (as documented) at patient's floor/unit and/or counseling patient: Coding Level of Care Code 69725 Subseq Hosp Care Lvl 2 Diagnoses Depression F32.9 Palliative care encounter Z51.5
[2020-12-01] MEDS: cefTRIAXone SODIUM 2,000 MG in DEXTROSE 5% 50 ML IV SCH (13:38)
[2020-12-01] MEDS: WARFARIN SOD 2.5 MG TAB PO SCH (16:47)
[2020-12-01] MEDS: INSULIN GLARGINE 100 UNIT/ML VIAL SC SCH (17:48)
[2020-12-02] MEDS ORDERED: OLANZapine 10 MG/2.1 ML SDV IM STA (00:27)
[2020-12-02] MEDS: INSULIN ASPART 100 UNITS/ML 3 ML PEN SC SCH ×3 (08:02→16:55)
[2020-12-02] MEDS: POTASSIUM CHLORIDE CRTAB 20 MEQ TABCR PO SCH (08:02)
[2020-12-02] MEDS: AMIODARONE 200 MG TAB PO SCH ×2 (08:02→16:51)
[2020-12-02] MEDS: lisinopril 10 MG TAB PO SCH (08:03)
[2020-12-02] MEDS: PARoxetine HCL 20 MG TAB PO SCH (08:03)
[2020-12-02] MEDS: CYANOCOBALAMIN 500 MCG TABLET (VITAMIN B-12) PO SCH (08:03)
[2020-12-02 08:08] LABS: INR 1.9 (0.9-1.1); Prothrombin Time 19.7 Seconds (9.0-12.0)
[2020-12-02] MEDS: FUROSEMIDE 40 MG in SYRINGE 0 ML IV SCH (08:08)
[2020-12-02 08:18] LABS: Albumin Level 2.3 gm/dl (3.4-5.0); BUN Creatinine Ratio 13.9 (10-20); Creatinine Clr Calc Pharmacy 109.4 ml/min; Est GFR (African American) 104.8; Est GFR (Non-African American) 90.4; Potassium 3.6 mmol/L (3.5-5.1)
[2020-12-02 08:21] LABS: Albumin Globulin Ratio 0.6 (0.9-2); Bilirubin,Total 0.4 mg/dl (0.2-1); Globulin 3.8 gm/dl (2.5-4.0); Total Protein 6.1 gm/dl (6.4-8.2)
--- NOTE | 2020-12-02 11:02 | Pharmacy Report ---
Pharmacy Glycemic Short Note 2 - Date of Service December 02, 2020 - Glycemic Short BSG Results (Last 24 hours): 12/01/20 12/01/20 12/01/20 11:13 16:33 20:08 Glucose POC Glucose 198 H 190 H 234 H 12/02/20 12/02/20 12/02/20 07:10 07:27 10:50 Glucose 164 H POC Glucose 168 H 208 H ASSESSMENT: 12/02: * Patient received total of 51 units of insulin yesterday, of which 20 were basal * Fasting BSG trending upward - will adjust basal / scale for higher dosing * Yesterday BSGs still elevated above goal / tighten CF this AM PLAN FOR INPATIENT GLYCEMIC CONTROL: * Hold outpatient oral diabetes medications * Basal insulin: increase * Lantus 20-25 units daily with dinner. * Bolus insulin: continued * NovoLog per scale ACHS or Q6hrs while NPO * Goal Range: Low 110 mg/dL - High 140 mg/dL * Correction Factor: 15 mg/dL/unit * Nutritional / Prandial insulin per carb ratio of 1 unit per 5 grams CHO consumed PLAN FOR DISCHARGE: * Patient's HbA1C is reasonable given her age and comorbidities. * Home insulin regimen consists of all basal insulin. Regimens like this can sometimes cause more frequent hypoglycemia, especially if diet is changing. Ideally would prefer a 50/50 split of insulin between basal/prandial. * Would ensure patient is not experiencing frequent hypoglycemia outpatient if outpatient regimen to be continued
--- NOTE | 2020-12-02 11:59 | Discharge Summary ---
Date of Service December 02, 2020 Admission HPI Per Admitting Provider 80-year-old female with PMH DM type II, paroxysmal atrial tachycardia, NSVT, HTN, history of pulmonary embolism anticoagulated on Coumadin, lymphedema, history of breast cancer s/p mastectomy, and other problems listed below who presents the ED for evaluation of abdominal pain. Patient reports symptoms began 5 days ago. Describes epigastric abdominal pain radiating into her back. She reports she has had a very poor appetite however no nausea or vomiting. Reports diarrhea today. Denies bright red bleeding per rectum or dark tarry stools. Reports she is felt generally weak. Did not take her temperature at home. Denies chest pain or shortness of breath. [place] lightheaded and dizzy today however no syncopal event. She denies any urinary symptoms. In the ED, CT ABD/pelvis shows severe gallbladder wall thickening with extensive surrounding inflammatory change and multiple small gallstones. Findings are consistent with acute cholecystitis and could represent early gangrenous change. WBC 22K, febrile 39.2, tachycardic, borderline low BPs, lactic acid 2.5 -> 1.3. Hypoxic on room air 80%, currently saturating well on 3 L via nasal cannula. Patient received IV cefepime, IV Flagyl, IVF. General surgery was notified by ED. Admission Exam Per Admitting Provider Constitutional: WD/WN, vitals as above + obese; no acute distress Eyes: PERRL, conjunctivae normal, anicteric sclerae Respiratory: normal respiratory effort, lungs clear to auscultation Cardiovascular: Rate/Rhythm: regular rhythm and + tachycardic Vessels: normal peripheral pulses Extremities: + edema (+3 edema BLE) Gastrointestinal (Abdomen): Inspection/Auscultation: normal bowel sounds Percussion/Palpation: + abdomen tender (Globally tender however more pronounced in RUQ and epigastric area) and abdomen soft; abdomen not rigid and no hepatosplenomegaly Musculoskeletal: no cyanosis or clubbing, extremities motor strength 5/5 Skin: no rashes, warm and dry Neurologic: PERRL, EOMI, accommodation nl, no face palsy, no dysarthria Psychiatric: A+Ox3, euthymic affect Principal Diagnosis (1) Choledocholithiasis: (2) Ascending cholangitis: (3) Acute cholecystitis: E coli bacteremia: Discharge Data Allergies Allergy/AdvReac Type Severity Reaction Status Date / Time rosiglitazone Allergy Mild UNKNOWN-RELATED Verified 11/19/20 16:08 POSS TO DVT/PE PER MEDICAL RECORD acetaminophen Allergy Unknown HIVES Verified 11/19/20 16:08 latex Allergy Unknown "Tape Verified 11/19/20 16:08 causes redness" Penicillins Allergy Unknown SOB Unverified 11/19/20 16:08 ,THROAT SHUT,COULDN'T BREATHE tramadol Allergy Unknown UNKNOWN Verified 11/19/20 16:08 Consultations 11/19/20 16:17 Consult General Surgery Stat ED Decision to Admit Stat 11/19/20 22:08 Consult Gastroenterology Routine 11/21/20 09:09 Consult Cardiology Routine 11/27/20 09:23 Consult Palliative Care Routine Procedures Performed Operation Date: 11/19/20 17:00 Actual Procedures p endoscopic retrograde cholangiopancreatography - Keara Russell MD Operation Date: 11/20/20 10:25 Actual Procedures p Laparoscopic Cholecystectomy, subtotal(Not Applicable) - Elva Macdonald MD Ordered Studies 11/19/20 15:06 CT abd pelvis wo con Stat 11/19/20 15:07 CT chest diagnostic wo con Stat 11/19/20 17:39 US venous doppler LE BI Urgent 11/19/20 19:42 FL ERCP biliary ductal Stat 11/21/20 09:31 CT angio chest PE protocol Urgent 11/21/20 21:18 CT abd pelvis IV con only Urgent CT angio chest PE protocol Urgent CT head/brain wo con Urgent Hospital Course (1) Choledocholithiasis: (2) Ascending cholangitis: (3) Acute cholecystitis: Patient presented with epigastric abdominal pain that has been going on for the last 5 days prior to admission. CT abdomen/pelvis was consistent with acute cholecystitis and could represent early gangrenous change. Surgery was consulted. S/p ERCP on November 19 with Choledocholithiasis, ascending cholangitis, stents placed. S/p laparoscopic cholecystectomy on November 21. On the day of discharge patient was hemodynamically stable. Tolerating diet. She had a YURI drain in place. She will need to follow-up with general surgery as an outpatient to have the drain removed. (4) Sepsis: Resolved. Currently hemodynamically stable. Afebrile. COVID 19 was ruled out again on 11/28 (5) E coli bacteremia: Cultures from November 17 are positive for E. coli. Currently remains on IV ceftriaxone. Continues doxycycline as did not see any clinical reasoning Blood cultures from 11/21 - thus far. Cultures from 11/23 are negative thus far. Patient completed 12 days of IV ceftriaxone therapy during this hospitalization. Will need 2 more days after discharge. (6) UTI (urinary tract infection): Pansensitive E. coli. On ceftriaxone. (7) Atrial flutter with rapid ventricular response: (8) NSVT (nonsustained ventricular tachycardia): On 11/21 patient had an episode of SVT/V. tach/A. fib with RVR. Cardiology was consulted. Patient was started on heparin followed by Coumadin. CT PE study was obtained which was negative. Transthoracic echo was obtained on 11/21 with a EF of 50%. Moderately calcified aortic valves and moderate valvular aortic stenosis. Patient is in normal sinus rhythm. Patient was started on amiodarone during his hospitalization. However given her bradycardia he was discharged on amiodarone 200 mg twice daily. Patient will need to follow-up with cardiology as an outpatient. (9) Hypoxia: Acute hypoxic respiratory failure possibly secondary to diastolic heart failure Patient is discharged on 3 L of nasal cannula. Adequate urine output in the last 24 hours. CX-ray from 11/28 with congestive heart failure. CT chest on admission without any concerning findings. Due to ongoing hypoxia, CTA was obtained which was negative for any pulmonary embolism. There is some component of obesity hypoventilation syndrome. Continue with [employer] Lasix 40 mg daily. Continue to monitor electrolytes.. Please assess body volume status and increase Lasix as needed. Patient was discharged with Villarreal catheter. Please do a voiding trial in the next 2 to 3 days. (10) SHAYNE (acute kidney injury): Resolved. (11) Left anterior fascicular block: (12) Elevated troponin: -Troponin 0.067 -> 0.06 -> 0.03 Likely demand in nature in the setting of sepsis. (13) Lymphedema, not elsewhere classified: Continue to diurese. (14) History of pulmonary embolism: Continue with Coumadin, INR today is 1.9 on the day of discharge. Continue with 5 mg of Coumadin daily. Check INR. Goal of INR between 2-3. (15) History of paroxysmal atrial tachycardia: (16) History of paroxysmal supraventricular tachycardia: Lopressor 100 milligrams twice daily on hold. Continue with amiodarone 200 mg daily. Bradycardia is resolved priro to discharge. Patient will need to follow-up with cardiology as an outpatient. (17) DM type 2 (diabetes mellitus, type 2): -Hgb A1c 6.8 05/2020 Patient was discharged on 30 units of Lantus along with glipizide and Metformin. Continue with insulin sliding scale. Please continue to monitor her glucose levels and adjust insulin as needed. (18) HTN (hypertension): improved, in the 140s now. (19) History of breast cancer: -History of breast cancer s/p left mastectomy -CT chest showing A few small right breast nodules measure up to 13 mm. Nonemergent mammogram follow-up recommended. (20) LUZ MARIA (obstructive sleep apnea): -Noncompliant with CPAP -Encouraged follow-up with sleep medicine (21) DVT prophylaxis: Continue on daily Coumadin. (22) Depression: On 11/27 patient reported that she wants to . Stated that she have had enough. I offered her palliative services. Palliative medicine was consulted. There was concern for depression. Patient was started on paroxetine. Continues to show improvement. Total Time Total Time Spent Total Time Spent (In Minutes): 35 Discharge Plan Discharge Items Patient Disposition: Transfer [facility] Reason For Visit: SEPSIS, ACUTE CHOLECYSTITIS Discharge Diagnosis: (1) Choledocholithiasis: (2) Ascending cholangitis: (3) Acute cholecystitis: Activity: Resume your previous activity Non-emergency contact: Primary Care Provider Follow-up/Referrals: hCristiano Felton MD [Primary Care Provider] - Diet: Carb Consistent or DM2 and Other - See Diet Comment Fluids: 1800ml (7 cups) Diet Texture: Easy to Chew Addtl Attending Provider Instructions: Continue with ceftriaxone 2 g daily for 2 more days starting tomorrow. Taking Lantus 30 units daily/glipizide/metformin along with insulin sliding scale with NovoLog. Please check glucose levels daily. Adjust insulin as needed. Given her bradycardia, Lopressor was stopped. Patient was discharged on amiodarone 200 mg daily. Will need to follow-up with cardiology in 1 week. Continue with Coumadin. Goal of INR between 2-3. You are being discharged with a YURI drain. Follow-up with general surgery to have the YURI drain removed. 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 Remove steri strips from incisions after 7 days from your surgery If you go home with surgical drain, monitor output amount daily and bring record to office. The drain will be removed in surgical office. Follow-up surgical office in 1-2 weeks. Call office at [phone] to schedule follow-up and to remove drain. Pending Studies at Discharge: No Stand-Alone Forms: My [facility] Skilled Items Patient informed of condition?: Yes DNR: Yes Discharge Level of Care: Skilled Communicable Disease: No Discharge Prognosis: Stable Lines: Peripheral IV Urinary Catheter: Yes Medications and DC Order Prescriptions: New amiodarone 200 mg Tablet 200 mg PO BIDM Qty: 60 RF: 0 paroxetine HCl 20 mg Tablet 20 mg PO QAM Qty: 30 RF: 0 insulin aspart U-100 [Novolog Flexpen U-100 Insulin] 100 unit/mL (3 mL) Insulin Pen 1 unit SC ACHS 5 Days Qty: 0.05 RF: 0 ceftriaxone 2 gram recon soln 2 g IV DAILY Qty: 2 RF: 0 Continued metformin 1,000 mg tablet 1,000 mg PO BID RF: 0 anastrozole 1 mg tablet 1 mg PO DAILY RF: 0 cyanocobalamin (vitamin B-12) 1,000 mcg tablet 1,000 mcg PO DAILY RF: 0 glipizide 5 mg tablet 5 mg PO BID RF: 0 lisinopril 10 mg tablet 10 mg PO DAILY RF: 0 pregabalin [Lyrica] 200 mg capsule 200 mg PO BID RF: 0 clindamycin phosphate 1 % gel 1 appln TOP BID RF: 0 cyclobenzaprine 10 mg tablet 10 mg PO BID RF: 0 fluticasone propionate 50 mcg/actuation spray,suspension 2 sprays INTNAS DAILY RF: 0 acetaminophen [Tylenol] 325 mg Tablet 325 mg PO Q4 PRN (Reason: Fever Or Pain) RF: 0 meclizine 25 mg Tablet 25 mg PO TID PRN (Reason: DIZZYNESS) RF: 0 cholecalciferol (vitamin D3) [Vitamin D3] 25 mcg (1,000 unit) Tablet 25 mcg PO Q2D RF: 0 turmeric root extract 500 mg Capsule 500 mg PO DAILY RF: 0 cholecalciferol (vitamin D3) 50 mcg (2,000 unit) Capsule 50 mcg PO Q2D RF: 0 Changed Lantus U-100 Insulin 100 unit/mL solution 30 units SQ QAM Qty: 0 RF: 0 potassium chloride 20 mEq tablet extended release 20 meq PO DAILY Qty: 0 RF: 0 furosemide [Lasix] 40 mg tablet 40 mg PO DAILY Qty: 0 RF: 0 warfarin 5 mg tablet 5 mg PO DAILY Qty: 30 RF: 0 Discontinued Lantus U-100 Insulin 100 unit/mL solution 42 units SQ QPM RF: 0 metoprolol tartrate 100 mg tablet 100 mg PO BID RF: 0 furosemide [Lasix] 40 mg tablet 80 mg PO SUMOWEFR RF: 0 potassium chloride 20 mEq Tablet Extended Release 20 meq PO TUTHSA RF: 0 warfarin 5 mg tablet 7.5 mg PO MOFR RF: 0 Krames/Other Patient Handouts: 2019-nCoV, Managing Type 2 Diabetes Admission Data Admit Date/Time: 11/19/20 18:57 Attending Provider: Vanna Trinh Admit Provider: Aileen Jones Primary Care Provider: Christiano Felton Other Providers: Elva Macdonald ; Ailene Jones ; Andrew Adams ; Edmund Diaz ; [facility]ian[facility] [place] ; [facility] ; [facility], ; Natalya Arita.
[2020-12-02] MEDS: cefTRIAXone SODIUM 2,000 MG in DEXTROSE 5% 50 ML IV SCH (13:22)
[2020-12-02] MEDS ORDERED: INSULIN GLARGINE 100 UNIT/ML VIAL SC SCH (16:30)
[2020-12-02] MEDS: WARFARIN SOD 2.5 MG TAB PO SCH (17:01)
== END 2020-12-02 17:59 | DRG 853 ==
LOC: ED 13:05 → ASU 18:56 → 2S 18:57 → SUATTDRO 18:57 → 1E 11-21 20:28 → 2S 11-22 11:33
DX: E87.2 Acidosis; J96.01 Acute respiratory failure with hypoxia; N39.0 Urinary tract infection, site not specified; E66.2 Morbid (severe) obesity with alveolar hypoventilation; I89.0 Lymphedema, not elsewhere classified; I48.92 Unspecified atrial flutter; I47.2 Ventricular tachycardia; I10 Essential (primary) hypertension; I44.4 Left anterior fascicular block; A41.51 Sepsis due to Escherichia coli [E. coli]; E11.9 Type 2 diabetes mellitus without complications; Z66 Do not resuscitate; D72.829 Elevated white blood cell count, unspecified; J96.02 Acute respiratory failure with hypercapnia; K80.00 Calculus of gallbladder with acute cholecystitis without obstruction; F32.9 Major depressive disorder, single episode, unspecified; R65.20 Severe sepsis without septic shock; Z79.84 Long term (current) use of oral hypoglycemic drugs; N17.9 Acute kidney failure, unspecified; Z86.711 Personal history of pulmonary embolism; I95.9 Hypotension, unspecified; Z87.891 Personal history of nicotine dependence; K83.09 Other cholangitis; Z51.5 Encounter for palliative care; I35.0 Nonrheumatic aortic (valve) stenosis

== ENCOUNTER 2021-10-23 13:16 | Inpatient (IN) ==
--- NOTE | 2021-10-23 13:34 | Emergency Department Note ---
Impression & Plan Hypoxia, SHAYNE (acute kidney injury), Elevated troponin, Anemia, Elevated INR, Pneumonia ED Provider Note NAME: ANABELLA STOREY AGE: 81 SEX: F : 1940 ARRIVES VIA: Ambulance INFORMANT: Patient ED PROVIDER(S): Rodolfo Hammond DO CHIEF COMPLAINT: shortness of breath HPI: Patient is a 81-year-old female who presents to the ER for shortness of breath. Symptoms started about 2 to 3 days ago. She has shaking chills. She feels very weak and cannot get up and move around. Denies any headache or change in vision. No chest pain but admits to shortness of breath. She does take Coumadin. No belly pain, nausea, vomiting, or diarrhea. She does admit to dysuria urgency or frequency but is not sure how long its been there for. No other exacerbating or remitting factors. ROS: See above HPI for pertinent positives & negatives. A total of 10 systems reviewed and were otherwise negative. PAST MEDICAL HISTORY:See Below PAST SURGICAL HISTORY:See Below FAMILY HISTORY:See Below SOCIAL HISTORY:See Below HOME MEDICATIONS:See Below ALLERGIES:See Below VITALS:See Below PHYSICAL EXAMINATION: GENERAL: Sitting up in bed, alert, morbidly obese, disheveled on NC EYE EXAM: normal conjunctiva. PERRL and EOM's grossly intact. OROPHARYNX: no exudate, no erythema, lips, buccal mucosa, and tongue normal and mucous membranes are moist NECK: supple, no nuchal rigidity, no adenopathy, non-tender LUNGS: Diminished bilaterally. Normal chest wall mechanics HEART: no murmurs, S1 normal and S2 normal ABDOMEN: abdomen soft, non-tender, normo-active bowel sounds, no masses, no rebound or guarding. UPPER EXTREMITIES: upper extremities are grossly normal. LOWER EXTREMITIES: No pitting edema. NEURO EXAM: Normal sensorium, cranial nerves II-XII grossly intact, normal speech, no gross weakness of arms, no gross weakness of legs. MEDICAL DECISION MAKING: Patient is a 81-year-old female who presents ER for upper respiratory symptoms associate with shortness of breath and urinary symptoms. IV was established blood work was obtained. Labs show mild leukocytosis 11,000. Mild anemia 10. INR was supratherapeutic at 4. BMP with a potassium of 5.2 and a creatinine of 3.7 up from 1. LFTs were unremarkable. Troponin was positive at 0.156. She denies any chest pain. Do favor that this is likely secondary to her SHAYNE but cannot be certain. She does have some shortness of breath. Nothing consistent with a PE specked with an INR of 4.4. UA was contaminated with multiple epithelial cells. To give her in a dose of IV Levaquin due to chest x-ray which shows concern for possible infiltrate. Influenza and Covid were negative. She was given a small bolus of IV fluids. She was updated bedside. Discussed with the hospitalist for further evaluation. Villarreal was placed. The sinus bradycardia on the EKG is not significant change from previous. Patient remained on nasal cannula throughout her stay in the ER. Triage Nursing notes reviewed. Limited review of prior medical records performed Vital Signs: reviewed and remarkable for hypoxia Differential diagnosis: Differential diagnoses includes but is not limited to pneumonia, bronchitis, COPD/Asthma exacerbation, pneumothorax, pulmonary embolism, congestive heart failure, acute coronary syndrome ER treatment provided: See below Diagnostics interpreted by me: ECG: Sinus Gena rate of 49 Left axis Right bundle branch block T wave inversion in the septal and anterior leads Nonspecific ST wave changes in the high lateral new leads Cardiac Monitoring: An order was placed for continuous cardiac monitoring. The monitor shows a rate of 50 with sinus rhythm. Laboratory studies: As stated above and show below. Imaging studies: Chest x-ray with some central vascular congestion and a questionable right lower lobe infiltrate Consultation(s): Discussed with Bee knight for further evaluation Procedures: none Critical Care: I have personally spent 32 minutes of critical care time in the direct management of this patient. This includes bedside care, interpretation of diagnostic studies, and testing, discussion with consultants, patient, and family members, and other required patient management activities. This 32 minutes is in excess of all separately billable procedures. Past Med/Surg History Medical History (Updated 10/23/21 @ 18:42 by OSCAR De Souza) Acute cholecystitis due to biliary calculus Cholangitis Chronic diastolic CHF (congestive heart failure) Chronic venous insufficiency CKD (chronic kidney disease), stage III Depression Diabetes mellitus with neuropathy DM type 2 (diabetes mellitus, type 2) E coli bacteremia History of breast cancer LEFT History of paroxysmal atrial tachycardia History of paroxysmal supraventricular tachycardia Seen by [facility] cardio 12/18/20, " Although historically she has been diagnosed with "PSVT" it sounds as though she has also had a diagnosis of atrial flutter and on review of telemetry monitoring strips it looks like she has runs of PAT. She also has a twelve-lead electrocardiogram looking like atrial fibrillation. She probably has all of these arrhythmias, but she is asymptomatic with them. Although the heart rate is quite fast she was started on amiodarone and without symptoms it is hard to say what degree of control we have. I do not think extensive monitoring is indicated. I would continue amiodarone for now." History of pulmonary embolism ? 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 Lymphedema, not elsewhere classified Osteoarthritis PAD (peripheral artery disease) Paroxysmal atrial fibrillation Paroxysmal atrial flutter Poor historian Sleep apnea NO DEVICE USED Vitamin D insufficiency Surgical History H/O left mastectomy History of anesthesia reaction "MY HEART IS EXTRA FAST WHEN I GET ANESTHESIA" History of cataract surgery RT/LEFT History of cholecystectomy History of ERCP History of tonsillectomy History of tooth extraction S/P hysterectomy S/P right rotator cuff repair Family History Grandmother (Paternal) Family history of diabetes mellitus Other Family history non-contributory No family history of adverse response to anesthesia Social History Smoking Status: Never smoker Second Hand Exposure: Yes (IN THE PAST); Hx Alcohol Use: No Hx Substance Use: No Preferred Language: Japanese Communication Ability: Impaired Visual Impairment: Limited Hearing Ability: Normal Grain Receiver Required: No Beliefs That Will Affect Care: None marital status: Current Living Situation: Spouse current occupational status: retired Feels Safe at Home: Yes Assistive Devices: Glasses and Walker Allergies Allergies Allergy/AdvReac Type Severity Reaction Status Date / Time Penicillins Allergy Severe SOB Unverified 10/23/21 14:01 ,THROAT SHUT,COULDN'T BREATHE rosiglitazone Allergy Severe UNKNOWN-RELATED Verified 10/23/21 14:01 POSS TO DVT/PE PER MEDICAL RECORD acetaminophen Allergy Intermediate HIVES Verified 10/23/21 14:01 tramadol Allergy Unknown UNKNOWN Verified 10/23/21 14:01 ADHESIVE AdvReac Mild IRRITATES Uncoded 10/23/21 14:01 SKIN Home Meds Home Medications Medication Instructions Recorded Confirmed anastrozole 1 mg tablet 1 mg PO DAILY 06/12/20 10/23/21 cyanocobalamin (vitamin B-12) 1,000 mcg PO DAILY 06/12/20 10/23/21 1,000 mcg tablet lisinopril 10 mg tablet 10 mg PO DAILY 06/12/20 10/23/21 metformin 1,000 mg tablet 1,000 mg PO BID 06/12/20 10/23/21 pregabalin 200 mg capsule (Lyrica) 200 mg PO BID 06/12/20 10/23/21 cholecalciferol (vitamin D3) 50 50 mcg PO QAM 11/19/20 10/23/21 mcg (2,000 unit) capsule insulin glargine 100 unit/mL 34 units SQ DAILY 01/07/21 10/23/21 subcutaneous solution (Lantus U-100 Insulin) insulin glargine 100 unit/mL 18 unit SUBCUT HS 10/23/21 10/23/21 subcutaneous solution (Lantus U-100 Insulin) metoprolol tartrate 50 mg tablet 25 mg PO BID 10/23/21 10/23/21 pantoprazole 40 mg tablet,delayed 40 mg PO DAILY 10/23/21 10/23/21 release warfarin 5 mg tablet 2.5 mg PO FR 10/23/21 10/23/21 warfarin 5 mg tablet 5 mg PO SUMOTUWETHSA 10/23/21 10/23/21 Previous Rx's Medication Instructions Recorded amiodarone 200 mg tablet 200 mg PO BIDM #60 tab 12/02/20 furosemide 40 mg tablet (Lasix) 40 mg PO DAILY #0 tab 12/02/20 Results & Data (ED) Vital Signs Vital Signs - 24 hr 10/23/21 12:58 10/23/21 13:27 10/23/21 13:54 Temperature 36.9 C Temperature Source Oral Pulse Rate 49 L 47 L 49 L Pulse Rate from SpO2 Sensor 48 L Pulse Rhythm Regular Regular Pulse Strength Normal Respiratory Rate 20 16 34 H Respiratory Effort / Characteristics Non-Labored Respiratory Pattern Regular Blood Pressure 106/48 L Blood Pressure Mean 67 Pulse Oximetry 77 L 77 L 97 Oxygen Delivery Method Room Air Room Air Sepsis Recent Fever Within 48 Hours No Sepsis New/Unexplained Change in Mental Status No Sepsis Action Taken by Nursing No Action Required 10/23/21 14:00 10/23/21 14:10 10/23/21 14:20 Temperature Temperature Source Pulse Rate 51 L 47 L 47 L Pulse Rate from SpO2 Sensor 52 L 48 L 49 L Pulse Rhythm Pulse Strength Respiratory Rate 18 17 17 Respiratory Effort / Characteristics Respiratory Pattern Blood Pressure Blood Pressure Mean Pulse Oximetry 95 96 98 Oxygen Delivery Method Sepsis Recent Fever Within 48 Hours Sepsis New/Unexplained Change in Mental Status Sepsis Action Taken by Nursing 10/23/21 14:30 10/23/21 14:40 10/23/21 14:50 Temperature Temperature Source Pulse Rate 50 L 48 L 48 L Pulse Rate from SpO2 Sensor 59 L 48 L Pulse Rhythm Pulse Strength Respiratory Rate 24 19 18 Respiratory Effort / Characteristics Respiratory Pattern Blood Pressure Blood Pressure Mean Pulse Oximetry 87 L 81 L 96 Oxygen Delivery Method Sepsis Recent Fever Within 48 Hours Sepsis New/Unexplained Change in Mental Status Sepsis Action Taken by Nursing 10/23/21 15:00 10/23/21 15:10 10/23/21 15:20 Temperature Temperature Source Pulse Rate 48 L 47 L 46 L Pulse Rate from SpO2 Sensor 47 L 46 L 47 L Pulse Rhythm Pulse Strength Respiratory Rate 20 20 20 Respiratory Effort / Characteristics Respiratory Pattern Blood Pressure Blood Pressure Mean Pulse Oximetry 96 96 97 Oxygen Delivery Method Sepsis Recent Fever Within 48 Hours Sepsis New/Unexplained Change in Mental Status Sepsis Action Taken by Nursing 10/23/21 15:30 10/23/21 15:40 10/23/21 15:50 Temperature Temperature Source Pulse Rate 46 L 49 L 53 L Pulse Rate from SpO2 Sensor 47 L 48 L 134 H Pulse Rhythm Pulse Strength Respiratory Rate 20 21 27 H Respiratory Effort / Characteristics Respiratory Pattern Blood Pressure Blood Pressure Mean Pulse Oximetry 98 97 82 L Oxygen Delivery Method Sepsis Recent Fever Within 48 Hours Sepsis New/Unexplained Change in Mental Status Sepsis Action Taken by Nursing 10/23/21 16:00 10/23/21 16:10 10/23/21 16:20 Temperature Temperature Source Pulse Rate 72 60 52 L Pulse Rate from SpO2 Sensor 49 L 47 L 47 L Pulse Rhythm Pulse Strength Respiratory Rate 16 21 20 Respiratory Effort / Characteristics Respiratory Pattern Blood Pressure Blood Pressure Mean Pulse Oximetry 95 100 100 Oxygen Delivery Method Sepsis Recent Fever Within 48 Hours Sepsis New/Unexplained Change in Mental Status Sepsis Action Taken by Nursing 10/23/21 16:30 10/23/21 16:40 10/23/21 16:50 Temperature Temperature Source Pulse Rate 52 L 122 H 165 H Pulse Rate from SpO2 Sensor 47 L 46 L 46 L Pulse Rhythm Pulse Strength Respiratory Rate 21 17 29 H Respiratory Effort / Characteristics Respiratory Pattern Blood Pressure Blood Pressure Mean Pulse Oximetry 98 94 96 Oxygen Delivery Method Sepsis Recent Fever Within 48 Hours Sepsis New/Unexplained Change in Mental Status Sepsis Action Taken by Nursing 10/23/21 17:00 10/23/21 17:10 10/23/21 17:20 Temperature Temperature Source Pulse Rate 163 H 45 L 47 L Pulse Rate from SpO2 Sensor Pulse Rhythm Pulse Strength Respiratory Rate 32 H 17 20 Respiratory Effort / Characteristics Respiratory Pattern Blood Pressure Blood Pressure Mean Pulse Oximetry Oxygen Delivery Method Sepsis Recent Fever Within 48 Hours Sepsis New/Unexplained Change in Mental Status Sepsis Action Taken by Nursing 10/23/21 17:30 Temperature Temperature Source Pulse Rate 46 L Pulse Rate from SpO2 Sensor Pulse Rhythm Pulse Strength Respiratory Rate 17 Respiratory Effort / Characteristics Respiratory Pattern Blood Pressure Blood Pressure Mean Pulse Oximetry Oxygen Delivery Method Sepsis Recent Fever Within 48 Hours Sepsis New/Unexplained Change in Mental Status Sepsis Action Taken by Nursing Laboratory Data Result diagrams: 10/23/21 14:27 10/23/21 14:27 Lab Results 10/23/21 10/23/21 10/23/21 Range/Units 13:47 14:05 14:27 WBC 11.45 H (4.8-10.8) K/uL RBC 4.36 (4.2-5.4) M/uL Hgb 10.4 L (12.0-16.0) g/dL Hct 36.6 L (37-47) % MCV 83.9 (80-100) fL MCH 23.9 L (25-34) pg MCHC 28.4 L (32-36) g/dL RDW Std Deviation 52.0 H (36.4-46.3) fL RDW Coeff of [place] 17.0 H (11.5-14.5) % Plt Count 465 H (130-400) K/uL MPV 10.6 H (7.4-10.4) fL Immature Gran % (Auto) 3.8 % Neut % (Auto) 76.6 % Lymph % (Auto) 9.1 % [place] % (Auto) 9.6 % Eos % (Auto) 0.6 % Baso % (Auto) 0.3 % Neut # (Auto) 8.76 H (1.4-6.5) K/uL Lymph # (Auto) 1.04 L (1.2-3.4) K/uL [place] # (Auto) 1.10 H (0.11-0.59) K/uL Eos # (Auto) 0.07 (0-0.5) K/uL Baso # (Auto) 0.04 (0-0.2) K/uL Immature Gran # (Auto) 0.44 H (0.00-0.02) K/uL Polychromasia 1+ Hypochromasia Present Microcytosis Present Stomatocytes 1+ PT (9.0-12.0) Seconds INR (0.9-1.1) Sodium (136-145) mmol/L Potassium (3.5-5.1) mmol/L Chloride (98-107) mmol/L Carbon Dioxide (21-32) mmol/L Anion Gap (3-11) BUN (7-18) mg/dl Creatinine (0.6-1.2) mg/dl Est Cr Clr Drug Dosing ml/min Est GFR ( Amer) ml/min Est GFR (Non-Af Amer) ml/min BUN/Creatinine Ratio (10-20) Glucose (70-99) mg/dl Calcium (8.5-10.1) mg/dl Total Bilirubin (0.2-1) mg/dl AST (15-37) U/L ALT (12-78) Alkaline Phosphatase (45-117) U/L Troponin I (0-0.045) ng/ml NT-Pro-B Natriuret Pep (0-1800) pg/ml Total Protein (6.4-8.2) gm/dl Albumin (3.4-5.0) gm/dl Globulin (2.5-4.0) gm/dl Albumin/Globulin Ratio (0.9-2) Lipase (73-393) U/L Procalcitonin (0-0.5) ng/ml Urine Color Dark Yellow Urine Appearance Turbid A (Clear) Urine pH 5.0 (4.5-7.5) Ur Specific [place] 1.027 (1.000-1.030) Urine Protein 2+ H (Negative) Urine Glucose (UA) Negative (Negative) Urine Ketones 1+ H (Negative) Urine Blood 3+ H (Negative) Urine Nitrite Negative (Negative) Urine Bilirubin 1+ H (Negative) Urine Urobilinogen Negative (Negative) Ur Leukocyte Esterase 3+ H (Negative) Urine WBC (Auto) >30 H (0-5) /hpf Urine RBC (Auto) 10-30 H (0-4) /hpf U Hyaline Cast (Auto) 0 (0-5) /lpf U Epithel Cells (Auto) >30 H (0-5) /lpf Urine Bacteria (Auto) 4+ H (Negative) Urine Yeast Not Reportable SARS-CoV-2 (PCR) NEGATIVE (Negative) Influenza Type A (PCR) Negative (Neg) Influenza Type B (PCR) Negative (Neg) RSV (RT-PCR) Negative (Neg) 10/23/21 10/23/21 10/23/21 Range/Units 14:27 14:27 14:27 WBC (4.8-10.8) K/uL RBC (4.2-5.4) M/uL Hgb (12.0-16.0) g/dL Hct (37-47) % MCV (80-100) fL MCH (25-34) pg MCHC (32-36) g/dL RDW Std Deviation (36.4-46.3) fL RDW Coeff of [place] (11.5-14.5) % Plt Count (130-400) K/uL MPV (7.4-10.4) fL Immature Gran % (Auto) % Neut % (Auto) % Lymph % (Auto) % [place] % (Auto) % Eos % (Auto) % Baso % (Auto) % Neut # (Auto) (1.4-6.5) K/uL Lymph # (Auto) (1.2-3.4) K/uL [place] # (Auto) (0.11-0.59) K/uL Eos # (Auto) (0-0.5) K/uL Baso # (Auto) (0-0.2) K/uL Immature Gran # (Auto) (0.00-0.02) K/uL Polychromasia Hypochromasia Microcytosis Stomatocytes PT (9.0-12.0) Seconds INR (0.9-1.1) Sodium 132 L (136-145) mmol/L Potassium 5.2 H (3.5-5.1) mmol/L Chloride 96 L (98-107) mmol/L Carbon Dioxide 30 (21-32) mmol/L Anion Gap 6.0 (3-11) BUN 41 H (7-18) mg/dl Creatinine 3.73 H (0.6-1.2) mg/dl Est Cr Clr Drug Dosing 17.6 ml/min Est GFR ( Amer) 12.6 ml/min Est GFR (Non-Af Amer) 10.9 ml/min BUN/Creatinine Ratio 10.9 (10-20) Glucose 89 (70-99) mg/dl Calcium 8.5 (8.5-10.1) mg/dl Total Bilirubin 0.3 (0.2-1) mg/dl AST 12 L (15-37) U/L ALT 11 L (12-78) Alkaline Phosphatase 58 (45-117) U/L Troponin I 0.156 H* (0-0.045) ng/ml NT-Pro-B Natriuret Pep 7449 H (0-1800) pg/ml Total Protein 7.0 (6.4-8.2) gm/dl Albumin 2.7 L (3.4-5.0) gm/dl Globulin 4.3 H (2.5-4.0) gm/dl Albumin/Globulin Ratio 0.6 L (0.9-2) Lipase 338 (73-393) U/L Procalcitonin 0.19 (0-0.5) ng/ml Urine Color Urine Appearance (Clear) Urine pH (4.5-7.5) Ur Specific [place] (1.000-1.030) Urine Protein (Negative) Urine Glucose (UA) (Negative) Urine Ketones (Negative) Urine Blood (Negative) Urine Nitrite (Negative) Urine Bilirubin (Negative) Urine Urobilinogen (Negative) Ur Leukocyte Esterase (Negative) Urine WBC (Auto) (0-5) /hpf Urine RBC (Auto) (0-4) /hpf U Hyaline Cast (Auto) (0-5) /lpf U Epithel Cells (Auto) (0-5) /lpf Urine Bacteria (Auto) (Negative) Urine Yeast SARS-CoV-2 (PCR) (Negative) Influenza Type A (PCR) (Neg) Influenza Type B (PCR) (Neg) RSV (RT-PCR) (Neg) 10/23/21 Range/Units 14:29 WBC (4.8-10.8) K/uL RBC (4.2-5.4) M/uL Hgb (12.0-16.0) g/dL Hct (37-47) % MCV (80-100) fL MCH (25-34) pg MCHC (32-36) g/dL RDW Std Deviation (36.4-46.3) fL RDW Coeff of [place] (11.5-14.5) % Plt Count (130-400) K/uL MPV (7.4-10.4) fL Immature Gran % (Auto) % Neut % (Auto) % Lymph % (Auto) % [place] % (Auto) % Eos % (Auto) % Baso % (Auto) % Neut # (Auto) (1.4-6.5) K/uL Lymph # (Auto) (1.2-3.4) K/uL [place] # (Auto) (0.11-0.59) K/uL Eos # (Auto) (0-0.5) K/uL Baso # (Auto) (0-0.2) K/uL Immature Gran # (Auto) (0.00-0.02) K/uL Polychromasia Hypochromasia Microcytosis Stomatocytes PT 39.8 H (9.0-12.0) Seconds INR 4.4 H (0.9-1.1) Sodium (136-145) mmol/L Potassium (3.5-5.1) mmol/L Chloride (98-107) mmol/L Carbon Dioxide (21-32) mmol/L Anion Gap (3-11) BUN (7-18) mg/dl Creatinine (0.6-1.2) mg/dl Est Cr Clr Drug Dosing ml/min Est GFR ( Amer) ml/min Est GFR (Non-Af Amer) ml/min BUN/Creatinine Ratio (10-20) Glucose (70-99) mg/dl Calcium (8.5-10.1) mg/dl Total Bilirubin (0.2-1) mg/dl AST (15-37) U/L ALT (12-78) Alkaline Phosphatase (45-117) U/L Troponin I (0-0.045) ng/ml NT-Pro-B Natriuret Pep (0-1800) pg/ml Total Protein (6.4-8.2) gm/dl Albumin (3.4-5.0) gm/dl Globulin (2.5-4.0) gm/dl Albumin/Globulin Ratio (0.9-2) Lipase (73-393) U/L Procalcitonin (0-0.5) ng/ml Urine Color Urine Appearance (Clear) Urine pH (4.5-7.5) Ur Specific [place] (1.000-1.030) Urine Protein (Negative) Urine Glucose (UA) (Negative) Urine Ketones (Negative) Urine Blood (Negative) Urine Nitrite (Negative) Urine Bilirubin (Negative) Urine Urobilinogen (Negative) Ur Leukocyte Esterase (Negative) Urine WBC (Auto) (0-5) /hpf Urine RBC (Auto) (0-4) /hpf U Hyaline Cast (Auto) (0-5) /lpf U Epithel Cells (Auto) (0-5) /lpf Urine Bacteria (Auto) (Negative) Urine Yeast SARS-CoV-2 (PCR) (Negative) Influenza Type A (PCR) (Neg) Influenza Type B (PCR) (Neg) RSV (RT-PCR) (Neg) Administered Medications Discontinued Medications Levofloxacin/Dextrose (Levaquin/D5w) 750 mg in 150 mls @ 100 mls/hr IV NOW STA Stop: 10/23/21 15:32 Last Admin: 10/23/21 14:43 Dose: 100 mls/hr Documented by: [id number] Sodium Chloride (Nss) 500 mls @ 999 mls/hr IV .Q31M ONE Stop: 10/23/21 16:35 Last Admin: 10/23/21 17:19 Dose: 999 mls/hr Documented by: [id number] Imaging Data Radiologist's Impression: Chest X-Ray 10/23/21 13:27 XR chest 1V portable HISTORY: 81 years-old Female Chest Pain . Acute atypical chest pain COMPARISON: 11/28/2020 TECHNIQUE: Portable AP view of the chest FINDINGS: Cardiac silhouette is enlarged. Trace left and small right pleural effusions. Pulmonary vascular congestion with mild right lung base consolidation. Linear left midlung opacities suggest atelectasis versus scarring. There is no pneumothorax. Degenerative changes of the shoulders and spine. IMPRESSION: 1. Cardiomegaly with pulmonary vascular congestion and right greater than left pleural effusions. 2. Right basilar consolidation suggests atelectasis versus pneumonia. ACT 112: Negative or not required by law. The above report was generated using voice recognition software. It may contain grammatical, syntax or spelling errors. Electronically signed by: Jose Miguel M.D. 10/23/2021 1:54 PM Discharge Plan Visit Data Chief Complaint: Weakness ED Provider: Rodolfo Hammond Discharge Problem: Hypoxia, SHAYNE (acute kidney injury), Elevated troponin, Anemia, Elevated INR, Pneumonia Forms Stand Alone Forms: My [facility] Prescriptions Prescriptions: No Action metformin 1,000 mg tablet 1,000 mg PO BID RF: 0 anastrozole 1 mg tablet 1 mg PO DAILY RF: 0 cyanocobalamin (vitamin B-12) 1,000 mcg tablet 1,000 mcg PO DAILY RF: 0 lisinopril 10 mg tablet 10 mg PO DAILY RF: 0 pregabalin [Lyrica] 200 mg capsule 200 mg PO BID RF: 0 cholecalciferol (vitamin D3) 50 mcg (2,000 unit) Capsule 50 mcg PO QAM RF: 0 amiodarone 200 mg Tablet 200 mg PO BIDM Qty: 60 RF: 0 furosemide [Lasix] 40 mg tablet 40 mg PO DAILY Qty: 0 RF: 0 Lantus U-100 Insulin 100 unit/mL solution 34 units SQ DAILY RF: 0 pantoprazole 40 mg tablet,delayed release (DR/EC) 40 mg PO DAILY RF: 0 Lantus U-100 Insulin 100 unit/mL solution 18 unit SUBCUT HS RF: 0 warfarin 5 mg tablet 2.5 mg PO FR RF: 0 metoprolol tartrate 50 mg tablet 25 mg PO BID RF: 0 warfarin 5 mg tablet 5 mg PO SUMOTUWETHSA RF: 0 Referrals Referrals: Christiano Felton MD [Primary Care Provider] -
--- NOTE | 2021-10-23 13:55 | XRay Report ---
XR chest 1V portable HISTORY: 81 years-old Female Chest Pain . Acute atypical chest pain COMPARISON: 11/28/2020 TECHNIQUE: Portable AP view of the chest FINDINGS: Cardiac silhouette is enlarged. Trace left and small right pleural effusions. Pulmonary vascular mario estion with mild right lung base consolidation. Linear left midlung opacities suggest atelectasis [place] scarring. There is no pneumothorax. Degenerative changes of the shoulders and spine. IMPRESSION: 1. Cardiomegaly with pulmonary vascular congestion and right greater than left pleural effusions. 2. Right basilar consolidation suggests atelectasis versus pneumonia. ACT 112: Negative or not required by law. The above report was generated using voice recognition software. It may contain grammatical, syntax o r spelling errors. Electronically signed by: Jose Miguel M.D. 10/23/2021 1:54 PM
[2021-10-23] MEDS ORDERED: levoFLOXacin/D5W 750 MG/150 ML BAG IV STA (14:03)
[2021-10-23 14:41] LABS: Influenza A virus by PCR Negative (Neg); Influenza B virus by PCR Negative (Neg); RSV by PCR Negative (Neg); SARS CoV2 RNA(COVID-19) InHosp NEGATIVE (Negative)
[2021-10-23 15:01] LABS: Appearance Urine Turbid (Clear); Bacteria Urine Automated 4+ (Negative); Blood Urine 3+ (Negative); Color Urine Dark Yellow; Epithelial Cell Urine Auto >30 /lpf (0-5); Glucose Urine UA Negative (Negative); Ketones Urine 1+ (Negative); Leukocyte Esterase Urine 3+ (Negative); Nitrite Urine Negative (Negative); Protein Urine 2+ (Negative); Specific Gravity Urine 1.027 (1.000-1.030); Urobilinogen Urine Negative (Negative); WBC Urine Automated >30 /hpf (0-5)
[2021-10-23 15:14] LABS: Bilirubin Urine 1+ (Negative)
[2021-10-23 15:17] LABS: Albumin Level 2.7 gm/dl (3.4-5.0); BUN Creatinine Ratio 10.9 (10-20); Calcium 8.5 mg/dl (8.5-10.1); Creatinine Clr Calc Pharmacy 17.6 ml/min; Est GFR (African American) 12.6 ml/min; Est GFR (Non-African American) 10.9 ml/min; Potassium 5.2 mmol/L (3.5-5.1)
--- NOTE | 2021-10-23 15:21 | Electrocardiogram Report ---
Test Reason : Blood Pressure : / mmHG Vent. Rate : 049 BPM Atrial Rate : 049 BPM P-R Int : 182 ms QRS Dur : 154 ms QT Int : 516 ms P-R-T Axes : 009 -58 056 degrees QTc Int : 466 ms Sinus bradycardia Right bundle branch block Left anterior fascicular block Bifascicular block Voltage criteria for left ventricular hypertrophy Abnormal ECG When compared with ECG of 23-NOV-2020 07:13, Right bundle branch block has replaced Non-specific intra-ventricular conduction block Minimal criteria for Anterior infarct are no longer Present Confirmed by Vikram Aguirre ([id number]) on 10/23/2021 3:21:38 PM Referred By: Confirmed By:Vikram Aguirre
[2021-10-23 15:25] LABS: Albumin Globulin Ratio 0.6 (0.9-2); Bilirubin,Total 0.3 mg/dl (0.2-1); Globulin 4.3 gm/dl (2.5-4.0); Troponin I 0.156 ng/ml (0-0.045)
[2021-10-23 15:28] LABS: Cast Urine Automated 0 /lpf (0-5)
[2021-10-23 15:47] LABS: Hematocrit (blood only) 36.6 % (37-47); Hemoglobin 10.4 g/dL (12.0-16.0); Mean Corpuscular Hemoglobin 23.9 pg (25-34); Mean Corpuscular Hgb Conc 28.4 g/dL (32-36); Mean Corpuscular Volume 83.9 fL (80-100); Mean Platelet Volume 10.6 fL (7.4-10.4); Platelet Count 465 K/uL (130-400); Red Blood Count 4.36 M/uL (4.2-5.4); White Blood Count 11.45 K/uL (4.8-10.8)
[2021-10-23] MEDS ORDERED: SODIUM CHLORIDE 0.9% 500 ML IV ONE (16:05)
[2021-10-23 16:35] LABS: Basophils # (auto) 0.04 K/uL (0-0.2); Basophils % (auto) 0.3 %; Eosinophils # (auto) 0.07 K/uL (0-0.5); Eosinophils % (auto) 0.6 %; Hypochromasia Present; Immature Granulocytes # (auto) 0.44 K/uL (0.00-0.02); Immature Granulocytes % (auto) 3.8 %; Lymphocytes # (auto) 1.04 K/uL (1.2-3.4); Lymphocytes % (auto) 9.1 %; Microcytosis Present; Monocytes % (auto) 9.6 %; Neutrophils # (auto) 8.76 K/uL (1.4-6.5); Neutrophils % (auto) 76.6 %; Polychromasia 1+; Stomatocytes 1+
[2021-10-23 17:10] LABS: INR 4.4 (0.9-1.1); Prothrombin Time 39.8 Seconds (9.0-12.0)
--- NOTE | 2021-10-23 18:38 | History & Physical Report ---
Date of Service October 23, 2021 Assessment & Plan (1) Acute kidney injury superimposed on CKD: (2) CKD (chronic kidney disease), stage III: Plan: -Admit to telemetry -Patient presenting from home with reports of generalized weakness and tremors/shakes. -In the ED, creatinine found to be 3.7 (baseline 1.1-1.2, labs recently checked as an outpatient on 10/14 and creatinine 1.2) -Suspect likely prerenal in nature due to underlying infection (UTI and/or pneumonia). Patient a poor historian, unsure amount of recent oral intake. Patient is also on Lasix, lisinopril, Metformin (these will be placed on hold). Patient denies any changes in medication recently and denies heavy NSAID use. -CXR suggesting pulmonary vascular congestion, proBNP checked and found to be 7400 which is not terribly high due to patient's size and SHAYNE. -For now, will trial hydration with IVF -Check renal ultrasound -Nephrology consult -Close monitoring of renal functions and electrolytes (3) Abnormal urinalysis: Plan: -UA suggestive of UTI -Received IV Levaquin in ED, would like to avoid further fluoroquinolones due to amiodarone and potential QTC prolongation. Will start aztreonam due to patient's anaphylactic reaction to penicillin. -Follow urine and blood cultures (4) Chronic diastolic CHF (congestive heart failure): (5) Moderate aortic stenosis: (6) Shortness of breath: Plan: -Shortness of breath likely multifactorial due to obesity, chronic diastolic CHF, possible pneumonia on CXR -Does not examine to be grossly volume overloaded, attempting IVF hydration as above for SHAYNE -Requiring 2 L of oxygen in ED. Has history of chronic hypoxia however not on home O2. PCP was to arrange recently. -Procalcitonin 0.19, pneumonia may be less likely however receiving aztreonam as above (7) Paroxysmal atrial flutter: (8) Paroxysmal atrial fibrillation: Plan: -Rhythm controlled on amiodarone, rate controlled on metoprolol --> holding both due to SHAYNE and mild bradycardia -Anticoagulated on Coumadin, INR 4.4 --> hold Coumadin tonight, monitor INR daily (9) Elevated troponin: Plan: -Troponin 0.156 -EKG without acute ST changes, no reports of chest pain -May be due to underlying renal dysfunction -Trend troponin (10) Skin excoriation: (11) Sacral wound: Plan: -Patient noted to have very excoriated abdominal folds -nystatin powder ordered -Patient reporting wounds on her sacrum however due to her size and the size of the ED gurney, she was unable to roll for me to further evaluate. -Wound care nurse consult (12) History of pulmonary embolism: Plan: -On Coumadin, as above (13) DM type 2 (diabetes mellitus, type 2): Plan: -Hgb A1c 6.2 07/2021 -Glucose 89 on labs --> NovoLog only for now (14) History of breast cancer: Plan: -Continue anastrozole (15) Depression: Plan: -Hold Lyrica due to SHAYNE (16) LUZ MARIA (obstructive sleep apnea): Plan: -Noncompliant/intolerant with CPAP (17) DVT prophylaxis: Plan: -On Coumadin, INR 4.4 (18) Discharge planning issues: Plan: -Patient noted to have very excoriated abdominal folds and patient reports sacral wounds. Seems like her is having difficulty taking care of her at home. PT OT consults, case management to follow for possible placement. Plan: Attending Addendum: care coordinated with OSCAR Medina please refer to her notes for full details, I agree with her notes patient seen and examined, records reviewed by myself as well on exam, patient seen resting in bed, comfortable still feels weak no chest pain, dyspnea, palpitations, dizziness still has intermittent tremors no abdominal pain ,nausea no other symptoms VS noted and reviewed oriented x 3 , not in distress, speaks in sentences with no effort nor accessory muscle use normal rate, regular rhythm, no murmurs clear breath sounds bilaterally non distended, soft, nontender (+) bilateral lower leg edema, erythema, warmth no neuro deficits WBC 11.4 Hg 10.4 Crea 3.7 ASSESSMENT AND PLAN> ACUTE RENAL FAILURE likely prerenal hold Lasix, Lisinopril gentle iv fluids Nephro consult UTI urine and blood cultures empiric Aztreonam other diagnoses and plan of care as per OSCAR Hoang MD History of Present Illness Chief Complaint: Generalized weakness Primary Care Provider: Christiano Felton MD 81-year-old female with PMH DM type II, LUZ MARIA noncompliant with CPAP, paroxysmal SVT, nonsustained V. tach, paroxysmal atrial fibrillation and flutter on amiod arone and Coumadin chronic diastolic CHF, HTN, aortic stenosis, CKD stage III, history of breast cancer, lymphedema, history of pulmonary embolism on Coumadin, and other problems listed below who presents the ED for evaluation of generalized weakness. Patient noted to be somewhat of a poor historian. Patient reports that over the past 1 month, she has noted increased generalized tremors/shakes. Patient reports this symptom reminded her of when she was very ill at the beginning of the year with cholangitis and bacteremia. Patient reports that yesterday, the tremors and shakes got acutely worse and when she attempted to ambulate, her legs were giving out from under her. She denies any falls. Patient also carries a history of chronic hypoxia, multifactorial due to LUZ MARIA and obesity. Was recently seen by PCP who was to resume 2 L of oxygen continuous. Patient notes some worsening shortness of breath however she is unsure for how long. Reports a chronic cough productive for white/acute clear sputum and notes increased sputum production over the past week. No change in sputum color. Patient denies fevers and chills. No chest pain. Denies lightheadedness, dizziness, diaphoresis, syncopal events. States her right lower extremity was seeping a clear fluid for which she placed a dressing on. Reports oral intake has been at baseline. Denies abdominal pain, nausea, vomiting, diarrhea. Notes that she is usually up frequently throughout the night having to urinate however last night she did not get up one time. Notes some dysuria this week. In the ED, labs show WBC 11.4K, K+ 5.2, creatinine 3.7 (was recently 1.2 on outpatient labs), troponin 0.156. UA suggestive of UTI. CXR showing pneumonia/possible volume overload. Patient was given IV Levaquin and IVF. Allergies Allergy/AdvReac Type Severity Reaction Status Date / Time Penicillins Allergy Severe SOB Unverified 10/23/21 14:01 ,THROAT SHUT,COULDN'T BREATHE rosiglitazone Allergy Severe UNKNOWN-RELATED Verified 10/23/21 14:01 POSS TO DVT/PE PER MEDICAL RECORD acetaminophen Allergy Intermediate HIVES Verified 10/23/21 14:01 tramadol Allergy Unknown UNKNOWN Verified 10/23/21 14:01 ADHESIVE AdvReac Mild IRRITATES Uncoded 10/23/21 14:01 SKIN Home Medications Medication Instructions Recorded Confirmed Type anastrozole 1 mg tablet 1 mg PO DAILY 06/12/20 10/23/21 History cyanocobalamin (vitamin B-12) 1,000 mcg PO DAILY 06/12/20 10/23/21 History 1,000 mcg tablet lisinopril 10 mg tablet 10 mg PO DAILY 06/12/20 10/23/21 History metformin 1,000 mg tablet 1,000 mg PO BID 06/12/20 10/23/21 History pregabalin 200 mg capsule (Lyrica) 200 mg PO BID 06/12/20 10/23/21 History cholecalciferol (vitamin D3) 50 50 mcg PO QAM 11/19/20 10/23/21 History mcg (2,000 unit) capsule amiodarone 200 mg tablet 200 mg PO BIDM #60 tab 12/02/20 10/23/21 Rx furosemide 40 mg tablet (Lasix) 40 mg PO DAILY #0 tab 12/02/20 10/23/21 Rx insulin glargine 100 unit/mL 34 units SQ DAILY 01/07/21 10/23/21 History subcutaneous solution (Lantus U-100 Insulin) insulin glargine 100 unit/mL 18 unit SUBCUT HS 10/23/21 10/23/21 History subcutaneous solution (Lantus U-100 Insulin) metoprolol tartrate 50 mg tablet 25 mg PO BID 10/23/21 10/23/21 History pantoprazole 40 mg tablet,delayed 40 mg PO DAILY 10/23/21 10/23/21 History release warfarin 5 mg tablet 2.5 mg PO FR 10/23/21 10/23/21 History warfarin 5 mg tablet 5 mg PO SUMOTUWETHSA 10/23/21 10/23/21 History Past Med/Surg History Medical History (Updated 10/23/21 @ 19:00 by OSCAR De Souza) Acute cholecystitis due to biliary calculus Cholangitis Chronic diastolic CHF (congestive heart failure) Chronic venous insufficiency CKD (chronic kidney disease), stage III Depression Diabetes mellitus with neuropathy DM type 2 (diabetes mellitus, type 2) E coli bacteremia History of breast cancer LEFT History of paroxysmal atrial tachycardia History of paroxysmal supraventricular tachycardia Seen by [facility] 12/18/20, " Although historically she has been diagnosed with "PSVT" it sounds as though she has also had a diagnosis of atrial flutter and on review of telemetry monitoring strips it looks like she has runs of PAT. She also has a twelve-lead electrocardiogram looking like atrial fibrillation. She probably has all of these arrhythmias, but she is asymptomatic with them. Although the heart rate is quite fast she was started on amiodarone and without symptoms it is hard to say what degree of control we have. I do not think extensive monitoring is indicated. I would continue amiodarone for now." History of pulmonary embolism ? DATE (REASON FOR WARFARIN) HTN (hypertension) Left anterior fascicular block senior living (current) use of 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 Lymphedema, not elsewhere classified Osteoarthritis PAD (peripheral artery disease) Paroxysmal atrial fibrillation Paroxysmal atrial flutter Poor historian Sleep apnea NO DEVICE USED Vitamin D insufficiency Surgical History H/O left mastectomy History of anesthesia reaction "MY HEART IS EXTRA FAST WHEN I GET ANESTHESIA" History of cataract surgery RT/LEFT History of cholecystectomy History of ERCP History of tonsillectomy History of tooth extraction S/P hysterectomy S/P right rotator cuff repair Family History Grandmother (Paternal) Family history of diabetes mellitus Other Family history non-contributory No family history of adverse response to anesthesia Social History Smoking Status: Never smoker Second Hand Exposure: Yes (IN THE PAST); Hx Alcohol Use: No Hx Substance Use: No Preferred Language: Iranian Communication Ability: Impaired Visual Impairment: Limited Hearing Ability: Normal Banking Management Consulting Manager Required: No Beliefs That Will Affect Care: None marital status: Current Living Situation: Spouse current occupational status: retired Feels Safe at Home: Yes Assistive Devices: Glasses and Walker Review of Systems Review of Systems: ROS per HPI, all other systems reviewed and negative Physical Exam Constitutional: WD/WN, vitals as above + obese; no acute distress Eyes: PERRL, conjunctivae normal, anicteric sclerae ENMT: external ear and nose normal, oropharynx normal Respiratory: normal respiratory effort; no respiratory distress Auscultation: + diminished lung sounds Cardiovascular: Rate/Rhythm: regular rhythm and + bradycardic Vessels: normal peripheral pulses Extremities: + edema (+3 edema BLE) Gastrointestinal (Abdomen): normal bowel sounds, soft, nontender, no hepatosplenomegaly Musculoskeletal: no cyanosis or clubbing, extremities motor strength 5/5 Skin: no rashes, warm and dry + excoriations (Abdominal folds) Dressing removed from RLE -small reddened area noted, relatively unremarkable. Patient notes she has wounds on her sacrum however due to patient's size and size of current gurney, she was unable to roll onto her side for me to further evaluate. Neurologic: PERRL, EOMI, accommodation nl, no face palsy, no dysarthria Psychiatric: A+Ox3, euthymic affect Results & Data Results & Data ([facility]) Vital Signs (Past 12 Hours) Vital Signs Temp Pulse Resp BP Pulse Ox 10/23/21 17:30 46 L 17 10/23/21 17:20 47 L 20 10/23/21 17:10 45 L 17 10/23/21 17:00 163 H 32 H 10/23/21 16:50 165 H 29 H 96 10/23/21 16:40 122 H 17 94 10/23/21 16:30 52 L 21 98 10/23/21 16:20 52 L 20 100 10/23/21 16:10 60 21 100 10/23/21 16:00 72 16 95 10/23/21 15:50 53 L 27 H 82 L 10/23/21 15:40 49 L 21 97 10/23/21 15:30 46 L 20 98 10/23/21 15:20 46 L 20 97 10/23/21 15:10 47 L 20 96 10/23/21 15:00 48 L 20 96 10/23/21 14:50 48 L 18 96 10/23/21 14:40 48 L 19 81 L 10/23/21 14:30 50 L 24 87 L 10/23/21 14:20 47 L 17 98 10/23/21 14:10 47 L 17 96 10/23/21 14:00 51 L 18 95 10/23/21 13:54 49 L 34 H 97 10/23/21 13:27 47 L 16 77 L 10/23/21 12:58 36.9 C 49 L 20 106/48 L 77 L Laboratory Results Short CBC 10/23/21 Range/Units 14:27 WBC 11.45 H (4.8-10.8) K/uL Hgb 10.4 L (12.0-16.0) g/dL Hct 36.6 L (37-47) % Plt Count 465 H (130-400) K/uL BMP 10/23/21 14:27 Sodium 132 L Potassium 5.2 H Chloride 96 L Carbon Dioxide 30 BUN 41 H Creatinine 3.73 H Glucose 89 Calcium 8.5 Cardiac Enzymes 10/23/21 Range/Units 14:27 Troponin I 0.156 H* (0-0.045) ng/ml Liver Function 10/23/21 Range/Units 14:27 Total Bilirubin 0.3 (0.2-1) mg/dl AST 12 L (15-37) U/L ALT 11 L (12-78) Alkaline Phosphatase 58 (45-117) U/L Albumin 2.7 L (3.4-5.0) gm/dl Urine 10/23/21 Range/Units 14:05 Urine Color Dark Yellow Urine Appearance Turbid A (Clear) Urine pH 5.0 (4.5-7.5) Ur Specific Martin 1.027 (1.000-1.030) Urine Protein 2+ H (Negative) Urine Glucose (UA) Negative (Negative) Diagnostic Findings Chest X-Ray 10/23/21 13:27 XR chest 1V portable HISTORY: 81 years-old Female Chest Pain . Acute atypical chest pain COMPARISON: 11/28/2020 TECHNIQUE: Portable AP view of the chest FINDINGS: Cardiac silhouette is enlarged. Trace left and small right pleural effusions. Pulmonary vascular congestion with mild right lung base consolidation. Linear left midlung opacities suggest atelectasis versus scarring. There is no pneumothorax. Degenerative changes of the shoulders and spine. IMPRESSION: 1. Cardiomegaly with pulmonary vascular congestion and right greater than left pleural effusions. 2. Right basilar consolidation suggests atelectasis versus pneumonia. ACT 112: Negative or not required by law. The above report was generated using voice recognition software. It may contain grammatical, syntax or spelling errors. Electronically signed by: Jose Miguel M.D. 10/23/2021 1:54 PM Code Status & VTE Plan Code Status Patient is a full code as per my discussion with her. VTE Prophylaxis Plan VTE Prophylaxis will be ordered: No
--- NOTE | 2021-10-23 19:21 | Ultrasound Report ---
US renal/blad retro comp HISTORY: 81 years-old Female SHAYNE acute kidney injury COMPARISON: CT abdomen and pelvis 11/21/2020 TECHNIQUE: Multiple real-time sonographic images of the kidneys and urinary bladder were obtained ass essing grayscale appearance and color flow FINDINGS: Right kidney measures 13.6 cm in length and demonstrates no renal calculi, hydronephrosis or suspicio us mass lesion. Mild cortical thinning. The left kidney measures 13.7 cm in length and demonstrates no renal calculi, hydronephrosis or suspi cious mass lesion. Mild cortical thinning. Decompressed urinary bladder with Villarreal catheter. Limited study secondary to patient body habitus and lack of cooperation throughout the study. IMPRESSION: 1. No renal calculi or hydronephrosis. 2. Decompressed urinary bladder with Villarreal catheter. ACT 112: Negative or not required by law. The above report was generated using voice recognition software. It may contain grammatical, syntax o r spelling errors. Electronically signed by: Jose Miguel M.D. 10/23/2021 7:20 PM
[2021-10-23] MEDS ORDERED: GLUCOSE 10 TABS/TUBE PO PRN (20:06)
[2021-10-23] MEDS ORDERED: CARBOHYDRATES FOR HYPOGLYCEMIA PO PRN (20:06)
[2021-10-23] MEDS ORDERED: GLUCOSE 40% GEL 15 GM TUBE PO PRN (20:06)
[2021-10-23] MEDS ORDERED: DEXTROSE 50% 50 ML SYRINGE IV PRN (20:06)
[2021-10-23] MEDS ORDERED: GLUCAGON FOR INJ 1 MG VIAL SQ PRN (20:06)
[2021-10-23] MEDS: SODIUM CHLORIDE 0.9% 1000ML 1,000 ML IV SCH (20:44)
[2021-10-23] MEDS: INSULIN ASPART PER UNIT SC SCH (21:32)
[2021-10-23] MEDS: NYSTATIN POWDER 15GM BTL EXT SCH (23:30)
[2021-10-24 07:38] LABS: BUN Creatinine Ratio 11.9 (10-20); Calcium 7.8 mg/dl (8.5-10.1); Creatinine Clr Calc Pharmacy 17.1 ml/min; Est GFR (African American) 12.4 ml/min; Est GFR (Non-African American) 10.7 ml/min; Potassium 5.3 mmol/L (3.5-5.1)
[2021-10-24] MEDS: SODIUM CHLORIDE 0.9% 1000ML 1,000 ML IV SCH ×2 (08:12→21:10)
[2021-10-24] MEDS: INSULIN ASPART PER UNIT SC SCH ×4 (08:12→20:40)
[2021-10-24] MEDS: ANASTROZOLE 1 MG TAB PO SCH (08:23)
[2021-10-24] MEDS: PANTOprazole 40 MG TAB PO SCH (08:23)
[2021-10-24] MEDS: AZTREONAM 1,000 MG in DEXTROSE 5% 100 ML IV SCH ×2 (08:23→21:11)
[2021-10-24] MEDS: NYSTATIN POWDER 15GM BTL EXT SCH ×2 (08:23→21:11)
[2021-10-24 09:12] LABS: Hematocrit (blood only) 33.8 % (37-47); Hemoglobin 9.5 g/dL (12.0-16.0); Mean Corpuscular Hemoglobin 23.6 pg (25-34); Mean Corpuscular Hgb Conc 28.1 g/dL (32-36); Mean Corpuscular Volume 83.9 fL (80-100); Mean Platelet Volume 10.3 fL (7.4-10.4); Nucleated RBC # (auto) 0.04 K/uL (0-0); Nucleated RBC % (auto) 0.4 %; Platelet Count 381 K/uL (130-400); RDW Coefficient of Variation 16.9 % (11.5-14.5); Red Blood Count 4.03 M/uL (4.2-5.4); White Blood Count 11.21 K/uL (4.8-10.8)
[2021-10-24 10:30] LABS: INR 4.8 (0.9-1.1); Prothrombin Time 42.7 Seconds (9.0-12.0)
--- NOTE | 2021-10-24 11:08 | Nephrology Consultation ---
Date of Consultation October 24, 2021 Assessment & Plan (1) Acute kidney injury superimposed on CKD: possibly oliguric SHAYNE on CKD3 > baseline creatinine 1.1-1.2; presented w/ sCreat 3.7, increased to 3.8 this morning. So far 150 mL urine output. Chemistries remarkable for mild hyperkalemia. Ongoing hypotension and hemodynamic instability for several hours, impoved at least for now after a bit more fluid. Given several hours of hypotension, her renal function is likely to worsen before it gets better. ?potential toxicity with lexapro, lyrica dosing prior to admission; both on hold now. Strict intake and output No indication for acute dialysis but cannot rule out the need Daily metabolic panel -agree w/ holding lexapro, lyrica Urgent TTE if bp drops again and low threshold for cardiology consultation -check CK, phos, mag w/ next labs > CK wnl; phos high, ca lower, mag ok -recommend NS at 50-75 ml/hr after indicated boluses for sepsis (2) Sepsis: meets criteria d/t known UTI and SHAYNE, hypotension. Follow-up pending cultures and response to fluid resuscitation. Continue aztreonam and daptomycin -Trend lactate -ivf as above (3) Hypotension: Low threshold for critical care consultation if persistent (4) Tremor: ? med toxicity? >> needs to be fed currently; may need neuro eval; in setting of marked weakness >> also needs eval of posterior including wound pt reprots; ? if she fell and wont' say >> note L hip pain and scab on brow History of Present Illness Reason for Consultation: Shayne Requesting Physician: Dr Hoang Attending Physician: Ralf Hoang MD History of Present Illness 81-year-old female whom I am asked to evaluate for acute on chronic kidney failure was admitted last evening for same after presenting with 1 month of progressive generalized weakness and noted to have creatinine 3.7 with urinalysis concerning for infection on presentation. Past medical history includes class III obesity, CKD 3 w/ baseline creatinine 1.1-1.2 and no proteinuria, chronic ambulatory dysfunction and deconditioning (wheelchair dependent for most outings), aortic stenosis with 0.9 cm valve area on June 2021 TTE, atrial fibrillation and flutter, pulmonary embolus on Coumadin, type 2 diabetes on Metformin, sleep apnea intolerant of CPAP, chronic hypoxia and cor pulmonale, chronic hypoxic respiratory failure recently restarted on 2 L outpatient oxygen, chronic lymphedema with ulceration, breast cancer March 2017 status post left mastectomy on anastrozole, essential tremor. She was admitted here November 2020 with sepsis from ascending cholangitis with E. coli bacteremia concurrent to E. coli UTI (question pyelonephritis) status post lap france. She takes Metformin, Lasix, lisinopril as an outpatient. She saw her PCP earlier this month with complaints of hypersomnolence needing up to 15 hours a day of sleep and worsening/extreme fatigue and exertional dyspnea. Her heart rate since arrival has been variable, ranging from the 40s to 160s. She is on 3 L of oxygen. Her blood pressures have been downtrending since presentation from 106 systolic to 74 earlier this morning. She is getting normal saline at 80 mL hourly. Also has had half liter bolus of same. Also on aztreonam and doxycycline. By midday pressures have rebounded to 120 systolic. pt c/o worsenign generalized weakness worsening ambulatory dysfunction because of intensified tremors the past 3 weeks. Also complains of dysuria for the past month. This includes dysuria today. No gross hematuria. No NSAIDs. No nausea vomiting or diarrhea. She has had decreased p.o. intake because she literally cannot keep the food on utensils long enough to get it to her mouth she tells me. Denies any falls but endorses increased lower extremity weakness with increased tremors. No worsening shortness of breath reported to me today though she told PCP breathing was much worse exertionally as was generalized weakness and fatigue. Denies fevers. No NSAID use. Allergies Allergy/AdvReac Type Severity Reaction Status Date / Time Penicillins Allergy Severe SOB Unverified 10/23/21 14:01 ,THROAT SHUT,COULDN'T BREATHE rosiglitazone Allergy Severe UNKNOWN-RELATED Verified 10/23/21 14:01 POSS TO DVT/PE PER MEDICAL RECORD acetaminophen Allergy Intermediate HIVES Verified 10/23/21 14:01 tramadol Allergy Unknown UNKNOWN Verified 10/23/21 14:01 adhesive AdvReac Mild IRRITATES Verified 10/24/21 07:49 SKIN Home Medications Medication Instructions Recorded Confirmed Type anastrozole 1 mg tablet 1 mg PO DAILY 06/12/20 10/23/21 History cyanocobalamin (vitamin B-12) 1,000 mcg PO DAILY 06/12/20 10/23/21 History 1,000 mcg tablet lisinopril 10 mg tablet 10 mg PO DAILY 06/12/20 10/23/21 History metformin 1,000 mg tablet 1,000 mg PO BID 06/12/20 10/23/21 History pregabalin 200 mg capsule (Lyrica) 200 mg PO BID 06/12/20 10/23/21 History cholecalciferol (vitamin D3) 50 50 mcg PO QAM 11/19/20 10/23/21 History mcg (2,000 unit) capsule amiodarone 200 mg tablet 200 mg PO BIDM #60 tab 12/02/20 10/23/21 Rx furosemide 40 mg tablet (Lasix) 40 mg PO DAILY #0 tab 12/02/20 10/23/21 Rx insulin glargine 100 unit/mL 34 units SQ DAILY 01/07/21 10/23/21 History subcutaneous solution (Lantus U-100 Insulin) insulin glargine 100 unit/mL 18 unit SUBCUT HS 10/23/21 10/23/21 History subcutaneous solution (Lantus U-100 Insulin) metoprolol tartrate 50 mg tablet 25 mg PO BID 10/23/21 10/23/21 History pantoprazole 40 mg tablet,delayed 40 mg PO DAILY 10/23/21 10/23/21 History release warfarin 5 mg tablet 2.5 mg PO FR 10/23/21 10/23/21 History warfarin 5 mg tablet 5 mg PO SUMOTUWETHSA 10/23/21 10/23/21 History Patient History Medical History (Updated 10/24/21 @ 13:47 by Julee Roth MD, PhD) Acute cholecystitis due to biliary calculus Cholangitis Chronic diastolic CHF (congestive heart failure) Chronic venous insufficiency CKD (chronic kidney disease), stage III Depression Diabetes mellitus with neuropathy DM type 2 (diabetes mellitus, type 2) E coli bacteremia History of breast cancer LEFT History of paroxysmal atrial tachycardia History of paroxysmal supraventricular tachycardia Seen by [facility] [place] cardio 12/18/20, " Although historically she has been diagnosed with "PSVT" it sounds as though she has also had a diagnosis of atrial flutter and on review of telemetry monitoring strips it looks like she has ru ns of PAT. She also has a twelve-lead electrocardiogram looking like atrial fibrillation. She probably has all of these arrhythmias, but she is asymptomatic with them. Although the heart rate is quite fast she was started on amiodarone and without symptoms it is hard to say what degree of control we have. I do not think extensive monitoring is indicated. I would continue amiodarone for now." History of pulmonary embolism ? DATE (REASON FOR WARFARIN) HTN (hypertension) Left anterior fascicular block nursing home (current) use of 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 Lymphedema, not elsewhere classified Osteoarthritis PAD (peripheral artery disease) Paroxysmal atrial fibrillation Paroxysmal atrial flutter Poor historian Sleep apnea NO DEVICE USED Vitamin D insufficiency Surgical History H/O left mastectomy History of anesthesia reaction "MY HEART IS EXTRA FAST WHEN I GET ANESTHESIA" History of cataract surgery RT/LEFT History of cholecystectomy History of ERCP History of tonsillectomy History of tooth extraction S/P hysterectomy S/P right rotator cuff repair Family History Grandmother (Paternal) Family history of diabetes mellitus Other Family history non-contributory No family history of adverse response to anesthesia Social History Smoking Status: Never smoker Second Hand Exposure: Yes (IN THE PAST); Hx Alcohol Use: No Hx Substance Use: No Preferred Language: Greenlandic Communication Ability: Effective Visual Impairment: Limited Hearing Ability: Normal Marketing Secretary Required: No Beliefs That Will Affect Care: None marital status: Current Living Situation: Spouse current occupational status: retired Other Information That Helps Us Care for You: No Feels Safe at Home: Yes Safety Concerns: Feels Safe At This Time Assistive Devices: Glasses and Walker Review of Systems Review of Systems: All systems reviewed & are unremarkable except as noted in HPI & below Physical Exam Constitutional: well developed, well nourished, + morbidly obese, + physical limitations and cooperative; no acute distress Eyes: EOM intact bilaterally ENMT: Ears: no external ear abnormality Nose: no external nose abnormality Mouth: + dry oral mucous membranes Neck: no nuchal rigidity Respiratory: normal respiratory effort Auscultation: + diminished lung sounds (anterior exam; pt unwilling/ unable to roll for exam) Cardiovascular: Rate/Rhythm: regular rate and regular rhythm Extremities: + edema (2+ PEDAL) Gastrointestinal (Abdomen): Inspection/Auscultation: normal bowel sounds Percussion/Palpation: abdomen soft and + ascites; abdomen nontender and no gu arding Musculoskeletal: generalized weakness; marked tremors of extremities; L hip TTP and R not Skin: no rashes, warm and dry 0.5 cm well healed scab R brow LLE wrapped; intertriginal erythema Neurologic: nelson, fluent speech, no tremor Psychiatric: Orientation: alert and oriented x 3 Speech: normal rate/rhythm/volume of speech Genitourinary: schultz w/ some yellow urine Results & [facility] ([facility]) Vital Signs (Past 12 Hours) Vital Signs Temp Pulse Resp BP Pulse Ox 10/24/21 09:41 36.7 C 50 L 23 74/59 L 93 10/24/21 04:16 36.7 C 50 L 20 95/38 L 93 10/23/21 23:07 36.5 C 49 L 19 89/73 L 92 Laboratory Results 10/24/21 07:00 10/24/21 07:00 Urinalysis: Dark turbid urine specific gravity 1027 with 2+ protein 1+ ketones 3+ blood 1+ bilirubin 3+ leukocyte Estrace 4+ bacteria Midodrine 30 white cells per high-powered field greater than 30 epithelial cells Blood cultures in process x2 Urine culture positive for 2 different types of gram-negative rods Diagnostic Findings CXR 1. Cardiomegaly with pulmonary vascular congestion and right greater than left pleural effusions. 2. Right basilar consolidation suggests atelectasis versus pneumonia. Renal ultrasound unremarkable Chest CT 1. Small right and trace left pleural effusions. Extensive atelectasis versus scarring without evidence of pneumonia. 2. Cardiomegaly and pulmonary hypertension. 3. Ascending aortic aneurysm, comparable in size to prior exam.
--- NOTE | 2021-10-24 11:09 | CT Scan Report ---
CT chest diagnostic wo con CLINICAL HISTORY: effusion vs. pneumonia TECHNIQUE: Multidetector row helical CT of the chest was performed. Coronal and sagittal reformations were obtained. Automated dose lowering techniques and/or adjustment according to patient size were u tilized for this exam. Comparison: Comparison is made to CT chest 11/21/2020 FINDINGS: Lungs and pleura: There is a small right and trace left pleural effusion with underlying atelectasis. Scattered linear opacities are seen compatible with atelectasis versus scarring throughout the lungs . No evidence of consolidation to suggest pneumonia. Mosaic attenuation is noted and there is vascula r prominence. Heart and pericardium: There is cardiomegaly without evidence of pericardial effusion. Vessels: Severe atherosclerotic changes in the aorta and coronary arteries. Mediastinum and payam: Subcentimeter lymph nodes are seen. Chest wall and lower neck: Pulmonary trunk measures 34 mm in diameter. The ascending aorta measures u p to 44 mm in diameter. Abdomen: Partial visualization of a splenic cyst. Bones: Degenerative changes in the thoracic spine. IMPRESSION: 1. Small right and trace left pleural effusions. Extensive atelectasis versus scarring without evide nce of pneumonia. 2. Cardiomegaly and pulmonary hypertension. 3. Ascending aortic aneurysm, comparable in size to prior exam. ACT 112: Negative or not required by law. Electronically signed by: David Gilbert M.D. 10/24/2021 11:08 AM
[2021-10-24] MEDS: DOXYCYCLINE HYCLATE 100 MG CAP PO SCH ×2 (11:26→21:11)
[2021-10-24 13:32] LABS: Magnesium 1.9 mg/dl (1.8-2.4); Phosphorus 5.9 mg/dl (2.5-4.9)
--- NOTE | 2021-10-24 15:37 | XRay Report ---
XR hip LT min 2V CLINICAL HISTORY: Left pain. COMPARISON STUDY: No previous studies for comparison. TECHNIQUE: 2 left hip views FINDINGS: Bones: There is no evidence for an acute fracture or dislocation. There is no lytic or blastic lesion . Joints: The joint spaces are maintained. The bones are in anatomic alignment. Soft tissues: There is no focal soft tissue abnormality. There is no radiopaque foreign body. IMPRESSION: No acute osseous pathology. ACT 112: Negative or not required by law. Electronically signed by: Howard Tony M.D. 10/24/2021 3:36 PM
--- NOTE | 2021-10-24 20:20 | Hospitalist Progress Note ---
Date of Service October 24, 2021 Assessment & Plan (1) Acute kidney injury superimposed on CKD: (2) CKD (chronic kidney disease), stage III: Plan: Per [facility] knight's notes with addendum including succeeding assessment and plan: -Patient presenting from home with reports of generalized weakness and tremors/shakes. -In the ED, creatinine found to be 3.7 (baseline 1.1-1.2, labs recently checked as an outpatient on 10/14 and creatinine 1.2) -Suspect likely prerenal in nature due to underlying infection (UTI and/or pneumonia). Patient a poor historian, unsure amount of recent oral intake. Patient is also on Lasix, lisinopril, Metformin (these will be placed on hold). Patient denies any changes in medication recently and denies heavy NSAID use. -CXR suggesting pulmonary vascular congestion, proBNP checked and found to be 7400 which is not terribly high due to patient's size and SHAYNE. -For now, will trial hydration with IVF -Check renal ultrasound -Nephrology consult -Close monitoring of renal functions and electrolytes 10/24/2021 Creatinine still at 3.7 Blood pressure low this morning, responded to 1 L of IV NSS bolus Renal ultrasound unrevealing Continue IV NSS at 80 cc/h Appreciate nephrology service recommendations (3) Abnormal urinalysis: Plan: -UA suggestive of UTI -Received IV Levaquin in ED, would like to avoid further fluoroquinolones due to amiodarone and potential QTC prolongation. Will start aztreonam due to patient's anaphylactic reaction to penicillin. -Follow urine and blood cultures 10/24/2021 Urine culture: Gram-negative bacilli Blood cultures negative so far Continue aztreonam, doxycycline Monitor closely (4) Chronic diastolic CHF (congestive heart failure): (5) Moderate aortic stenosis: (6) Shortness of breath: Plan: -Shortness of breath likely multifactorial due to obesity, chronic diastolic CHF, possible pneumonia on CXR -Does not examine to be grossly volume overloaded, attempting IVF hydration as above for SHAYNE -Requiring 2 L of oxygen in ED. Has history of chronic hypoxia however not on home O2. PCP was to arrange recently. -Procalcitonin 0.19, pneumonia may be less likely however receiving aztreonam as above 10/24/2021 CT chest: Trace pleural effusion, no infiltrate to suggest pneumonia Echocardiogram: EF 50 to 55%, moderate aortic stenosis Currently patient on the dry side Gentle IV fluids (7) Paroxysmal atrial flutter: (8) Paroxysmal atrial fibrillation: Plan: -Rhythm controlled on amiodarone, rate controlled on metoprolol --> holding both due to SHAYNE and mild bradycardia -Anticoagulated on Coumadin, INR 4.4 --> hold Coumadin tonight, monitor INR daily -INR 4.8, hold Coumadin (9) Elevated troponin: Plan: -Troponin 0.156 -EKG without acute ST changes, no reports of chest pain -May be due to underlying renal dysfunction Troponin 0 0.1-0.2 Echocardiogram no wall motion abnormalities (10) Skin excoriation: (11) Sacral wound: Plan: -Patient noted to have very excoriated abdominal folds -nystatin powder ordered -Patient reporting wounds on her sacrum however due to her size and the size of the ED gurney, she was unable to roll for me to further evaluate. -Wound care nurse consult 10/24/2021 Possible bilateral lower extremity cellulitis component Doxycycline p.o. started (12) History of pulmonary embolism: Plan: -On Coumadin, as above (13) DM type 2 (diabetes mellitus, type 2): Plan: -Hgb A1c 6.2 07/2021 -Glucose 89 on labs --> NovoLog only for now (14) History of breast cancer: Plan: -Continue anastrozole (15) Depression: Plan: -Hold Lyrica due to SHAYNE (16) LUZ MARIA (obstructive sleep apnea): Plan: -Noncompliant/intolerant with CPAP (17) DVT prophylaxis: Plan: -On Coumadin, INR 4.4 (18) Discharge planning issues: Plan: -Patient noted to have very excoriated abdominal folds and patient reports sacral wounds. Seems like her is having difficulty taking care of her at home. PT OT consults, case management to follow for possible placement. Admission and Anticipated Discharge Date Admission Date: October 23, 2021 Subjective Follow-up for acute kidney failure, UTI, etc. Seen resting in bed, comfortable, not in distress Appears weak but states she feels better compared to yesterday Denies dizziness, headache, chest pain, shortness of breath, palpitations, nausea or vomiting Abdominal pain No chills No leg pain No other symptoms Review of Systems Review of Systems: all noted and negative except for above Physical Exam Physical Exam: General- oriented x 2, not in distress, speaks in sentences with no effort or accessory muscle use Eyes- anicteric Neck- no JVD Lungs- clear breath sounds bilaterally, no rales/wheezes Heart- normal rate, regular rhythm; no murmurs Abdomen- normal bowel sounds, nondistended, soft, nontender Extremities-positive grade 1 lower leg edema, mild erythema and warmth, no tenderness Neuro- alert, oriented x 3; no gross focal neurologic deficits Skin- warm & dry Results & Data Results & Data ([facility]) Vital Signs (Past 12 Hours) Vital Signs Temp Pulse Resp BP Pulse Ox 10/24/21 19:29 60 30 H 88/43 L 90 10/24/21 15:59 68 24 99/61 L 93 10/24/21 11:22 59 L 121/90 94 10/24/21 09:41 36.7 C 50 L 23 74/59 L 93 all noted and reviewed including below
[2021-10-25] MEDS: ALUMINUM/MAGNESIUM/SIMETH (MAALOX MAX) 30 ML UDC PO PRN (00:41)
[2021-10-25] MEDS: INSULIN ASPART PER UNIT SC SCH ×4 (08:22→21:34)
[2021-10-25 08:29] LABS: INR 3.7 (0.9-1.1)
[2021-10-25] MEDS: AZTREONAM 1,000 MG in DEXTROSE 5% 100 ML IV SCH (08:41)
[2021-10-25] MEDS: DOXYCYCLINE HYCLATE 100 MG CAP PO SCH (08:41)
[2021-10-25] MEDS: ANASTROZOLE 1 MG TAB PO SCH (08:41)
[2021-10-25] MEDS: PANTOprazole 40 MG TAB PO SCH (08:41)
[2021-10-25] MEDS ORDERED: CONSULT PHARMACY STA (09:51)
[2021-10-25] MEDS: SODIUM CHLORIDE 0.9% 1000ML 1,000 ML IV SCH (09:52)
[2021-10-25 10:12] LABS: Albumin Level 2.2 gm/dl (3.4-5.0); BUN Creatinine Ratio 14.4 (10-20); Calcium 7.1 mg/dl (8.5-10.1); Creatinine Clr Calc Pharmacy 17.2 ml/min; Est GFR (African American) 12.3 ml/min; Est GFR (Non-African American) 10.6 ml/min; Magnesium 1.9 mg/dl (1.8-2.4); Potassium 5.5 mmol/L (3.5-5.1)
[2021-10-25 10:29] LABS: Albumin Globulin Ratio 0.6 (0.9-2); Bilirubin,Total 0.3 mg/dl (0.2-1); Globulin 3.9 gm/dl (2.5-4.0); Phosphorus 4.9 mg/dl (2.5-4.9); Total Protein 6.1 gm/dl (6.4-8.2)
[2021-10-25] MEDS: CIPROFLOXACIN / D5W 400 MG/200 ML BAG IV SCH (10:30)
[2021-10-25 10:33] LABS: Hematocrit (blood only) 32.1 % (37-47); Hemoglobin 9.1 g/dL (12.0-16.0); Mean Corpuscular Hemoglobin 23.8 pg (25-34); Mean Corpuscular Hgb Conc 28.3 g/dL (32-36); Mean Corpuscular Volume 83.8 fL (80-100); Mean Platelet Volume 10.6 fL (7.4-10.4); Nucleated RBC # (auto) 0.06 K/uL (0-0); Nucleated RBC % (auto) 0.6 %; Platelet Count 382 K/uL (130-400); RDW Coefficient of Variation 17.2 % (11.5-14.5); RDW Standard Deviation 53.4 fL (36.4-46.3); Red Blood Count 3.83 M/uL (4.2-5.4); White Blood Count 9.01 K/uL (4.8-10.8)
[2021-10-25 10:36] LABS: Basophils # (auto) 0.02 K/uL (0-0.2); Basophils % (auto) 0.2 %; Eosinophils # (auto) 0.06 K/uL (0-0.5); Eosinophils % (auto) 0.7 %; Immature Granulocytes # (auto) 0.23 K/uL (0.00-0.02); Immature Granulocytes % (auto) 2.6 %; Lymphocytes # (auto) 0.95 K/uL (1.2-3.4); Lymphocytes % (auto) 10.5 %; Monocytes # (auto) 1.04 K/uL (0.11-0.59); Monocytes % (auto) 11.5 %; Neutrophils # (auto) 6.71 K/uL (1.4-6.5); Neutrophils % (auto) 74.5 %; Polychromasia 1+
--- NOTE | 2021-10-25 11:39 | Hospitalist Progress Note ---
Date of Service October 25, 2021 Assessment & Plan (1) Acute kidney injury superimposed on CKD: (2) CKD (chronic kidney disease), stage III: Plan: Per [facility]'s notes with addendum including succeeding assessment and plan: -Patient presenting from home with reports of generalized weakness and tremors/shakes. -In the ED, creatinine found to be 3.7 (baseline 1.1-1.2, labs recently checked as an outpatient on 10/14 and creatinine 1.2) -Suspect likely prerenal in nature due to underlying infection (UTI and/or pneumonia). Patient a poor historian, unsure amount of recent oral intake. Patient is also on Lasix, lisinopril, Metformin (these will be placed on hold). Patient denies any changes in medication recently and denies heavy NSAID use. -CXR suggesting pulmonary vascular congestion, proBNP checked and found to be 7400 which is not terribly high due to patient's size and SHAYNE. -For now, will trial hydration with IVF -Check renal ultrasound -Nephrology consult -Close monitoring of renal functions and electrolytes 10/25/2021 Creatinine still at 3.8 BP on the soft side urine output yesterday 550 Renal ultrasound unrevealing Continue IV NSS at 80 cc/h Appreciate nephrology service recommendations (3) Abnormal urinalysis: Plan: E coli and Klebsiella UTI -Received IV Levaquin in ED, would like to avoid further fluoroquinolones due to amiodarone and potential QTC prolongation. Will start aztreonam due to patient's anaphylactic reaction to penicillin. -Follow urine and blood cultures 10/24/2021 Urine culture: E coli and Klebsiella Blood cultures negative so far aztreonam (2 days)--> changed to Cipro Day 1 Monitor closely (4) Chronic diastolic CHF (congestive heart failure): (5) Moderate aortic stenosis: (6) Shortness of breath: Plan: -Shortness of breath likely multifactorial due to obesity, chronic diastolic CHF, possible pneumonia on CXR -Does not examine to be grossly volume overloaded, attempting IVF hydration as above for SHAYNE -Requiring 2 L of oxygen in ED. Has history of chronic hypoxia however not on home O2. PCP was to arrange recently. -Procalcitonin 0.19, pneumonia may be less likely however receiving aztreonam as above 10/24/2021 CT chest: Trace pleural effusion, no infiltrate to suggest pneumonia Echocardiogram: EF 50 to 55%, moderate aortic stenosis Currently patient on the dry side Gentle IV fluids (7) Paroxysmal atrial flutter: (8) Paroxysmal atrial fibrillation: Plan: -Rhythm controlled on amiodarone, rate controlled on metoprolol --> holding both due to SHAYNE and mild bradycardia -Anticoagulated on Coumadin, INR 4.4 --> hold Coumadin tonight, monitor INR daily -INR 3.7, hold Coumadin (9) Elevated troponin: Plan: -Troponin 0.156 -EKG without acute ST changes, no reports of chest pain -May be due to underlying renal dysfunction Troponin 0 0.1-0.2 Echocardiogram no wall motion abnormalities (10) Skin excoriation: (11) Sacral wound: Plan: -Patient noted to have very excoriated abdominal folds -nystatin powder ordered -Patient reporting wounds on her sacrum however due to her size and the size of the ED gurney, she was unable to roll for me to further evaluate. -Wound care nurse consult 10/24/2021 Possible bilateral lower extremity cellulitis component Doxycycline PO Day 2 (12) History of pulmonary embolism: Plan: -On Coumadin, as above (13) DM type 2 (diabetes mellitus, type 2): Plan: -Hgb A1c 6.2 07/2021 -Glucose 89 on labs --> NovoLog only for now (14) History of breast cancer: Plan: -Continue anastrozole (15) Depression: Plan: -Hold Lyrica due to SHAYNE (16) LUZ MARIA (obstructive sleep apnea): Plan: -Noncompliant/intolerant with CPAP (17) DVT prophylaxis: Plan: -On Coumadin, INR 4.4 (18) Discharge planning issues: Plan: -Patient noted to have very excoriated abdominal folds and patient reports sacral wounds. Seems like her is having difficulty taking care of her at home. PT OT consults, case management to follow for possible placement. Admission and Anticipated Discharge Date Admission Date: October 23, 2021 Subjective ff up for acute renal failure, etc seen resting in chair, comfortable on 2l NC alert, conversant appears brighter states she feels somewhat better today no chest pain, dyspnea, palpitations, dizziness no abdominal pain, fever/chills no leg or back pain no other symptoms Review of Systems Review of Systems: all noted and negative except for above Physical Exam Physical Exam: General- oriented x 3, not in distress, speaks in sentences with no effort or accessory muscle use Eyes- anicteric Neck- no JVD Lungs- clear breath sounds bilaterally, no rales/wheezes Heart- normal rate, regular rhythm; no murmurs Abdomen- normal bowel sounds, nondistended, soft, nontender Extremities- (+) grade 2 lower leg edema Neuro- alert, oriented x 3; no gross focal neurologic deficits Skin- warm & dry Results & Data Results & Data ([facility]) Vital Signs (Past 12 Hours) Vital Signs Temp Pulse Resp BP Pulse Ox Pulse Ox 10/25/21 11:22 37.4 C 63 22 94/58 L 93 10/25/21 10:29 80 L 10/25/21 08:09 37.4 C 59 L 22 104/43 L 95 10/25/21 07:00 57 L 20 107/56 L 97 10/25/21 06:03 36.9 C 59 L 21 107/56 L 97 10/25/21 03:46 60 20 104/48 L 92 10/25/21 00:36 61 26 H 93/75 L 90 10/25/21 00:30 87 L all noted and reviewed including below
--- NOTE | 2021-10-25 15:39 | Nephrology Progress Note ---
Date of Service October 25, 2021 Assessment & Plan (1) Acute kidney injury superimposed on CKD: Plan: possibly oliguric SHAYNE on CKD3 > baseline creatinine 1.1-1.2; presented w/ sCreat 3.7, increased to 3.8 12 and plateau'd now. 900 mL urine output. Chemistries remarkable for mild hyperkalemia. Ongoing hypotension and hemodynamic instability for several hours, impoved at least for now after a bit more fluid. Given several hours of hypotension, her renal function is likely to worsen before it gets better. ?potential toxicity with lexapro, lyrica dosing prior to admission; both on hold now. TTE unchanged/unremarkable Strict intake and output No indication for acute dialysis but cannot rule out the need Daily metabolic panel -agree w/ holding lexapro, lyrica -check CK, phos, mag w/ next labs > CK wnl; phos high, ca lower, mag ok -lowered NS to 50 ml/hr after indicated boluses for sepsis - follow bp as below; she is becoming slighly overloaded (2) Sepsis: Plan: meets criteria d/t known UTI and SHAYNE, hypotension. Follow-up pending cultures and response to fluid resuscitation. Continue aztreonam and daptomycin -Trend lactate -ivf as above (3) Hypotension: Plan: Low threshold for critical care consultation if persistent; may need pressor; ensure bp taken appropriately (4) Tremor: Plan: ? med toxicity? >> may need to be fed currently; may need neuro eval;not improving Admission and Anticipated Discharge Date Admission Date: October 23, 2021 Subjective no interval events. tremor not much changed; denies feeling sob. does endorse marked heart burn and not relieved by cuffent measures; states alkaa selter h elps only this; ongoing severe tremors Review of Systems Review of Systems: All systems reviewed & are unremarkable except as noted in Subjective Physical Exam Constitutional: well developed, well nourished, + morbidly obese, + physical limitations and cooperative; no acute distress Eyes: EOM intact bilaterally ENMT: Ears: no external ear abnormality Nose: no external nose abnormality Mouth: + dry oral mucous membranes Neck: no nuchal rigidity Respiratory: normal respiratory effort Auscultation: + diminished lung soun ds Cardiovascular: Rate/Rhythm: regular rate and regular rhythm Extremities: + edema (2+ PEDAL) Gastrointestinal (Abdomen): Inspection/Auscultation: normal bowel sounds Percussion/Palpation: abdomen soft and + ascites; abdomen nontender and no guarding Musculoskeletal: strength abnormal Skin: no rashes, warm and dry Psychiatric: Orientation: alert and oriented x 3 Speech: normal rate/rhythm/volume of speech Genitourinary: catheter w/ ample urine Results & Data ([facility]) Vital Signs (Past 12 Hours) Vital Signs Temp Pulse Pulse Resp BP Pulse Ox Pulse Ox 10/25/21 15:17 36.7 C 60 20 82/41 L 92 10/25/21 12:22 92 10/25/21 11:22 37.4 C 63 22 94/58 L 93 10/25/21 10:29 80 L 10/25/21 08:09 37.4 C 59 L 22 104/43 L 95 10/25/21 07:00 57 L 20 107/56 L 97 10/25/21 06:03 36.9 C 59 L 21 107/56 L 97 10/25/21 03:46 60 20 104/48 L 92 Laboratory Results 10/25/21 06:53 10/25/21 06:53
[2021-10-25] MEDS: NYSTATIN POWDER 15GM BTL EXT SCH ×2 (17:00→21:33)
[2021-10-26] MEDS: SODIUM CHLORIDE 0.9% 1000ML 1,000 ML IV SCH ×2 (00:30→23:39)
[2021-10-26 08:08] LABS: Basophils # (auto) 0.02 K/uL (0-0.2); Basophils % (auto) 0.2 %; Eosinophils # (auto) 0.08 K/uL (0-0.5); Eosinophils % (auto) 0.9 %; Hematocrit (blood only) 33.4 % (37-47); Hemoglobin 9.5 g/dL (12.0-16.0); Immature Granulocytes # (auto) 0.17 K/uL (0.00-0.02); Immature Granulocytes % (auto) 1.8 %; Lymphocytes # (auto) 0.68 K/uL (1.2-3.4); Lymphocytes % (auto) 7.2 %; Mean Corpuscular Hemoglobin 23.7 pg (25-34); Mean Corpuscular Hgb Conc 28.4 g/dL (32-36); Mean Corpuscular Volume 83.3 fL (80-100); Mean Platelet Volume 9.8 fL (7.4-10.4); Monocytes # (auto) 1.12 K/uL (0.11-0.59); Monocytes % (auto) 11.9 %; Neutrophils # (auto) 7.31 K/uL (1.4-6.5); Platelet Count 329 K/uL (130-400); RDW Coefficient of Variation 16.9 % (11.5-14.5); RDW Standard Deviation 52.2 fL (36.4-46.3); Red Blood Count 4.01 M/uL (4.2-5.4); White Blood Count 9.38 K/uL (4.8-10.8)
[2021-10-26 08:17] LABS: INR 2.5 (0.9-1.1); Prothrombin Time 23.4 Seconds (9.0-12.0)
[2021-10-26] MEDS: INSULIN ASPART PER UNIT SC SCH ×4 (08:28→20:51)
[2021-10-26 08:30] LABS: Potassium 5.2 mmol/L (3.5-5.1)
[2021-10-26] MEDS: CIPROFLOXACIN / D5W 400 MG/200 ML BAG IV SCH (08:35)
[2021-10-26] MEDS: PANTOprazole 40 MG TAB PO SCH (08:35)
[2021-10-26] MEDS: NYSTATIN POWDER 15GM BTL EXT SCH ×2 (08:35→20:50)
[2021-10-26] MEDS: ANASTROZOLE 1 MG TAB PO SCH (08:35)
[2021-10-26 08:42] LABS: Albumin Globulin Ratio 0.6 (0.9-2); Albumin Level 2.3 gm/dl (3.4-5.0); BUN Creatinine Ratio 19.8 (10-20); Bilirubin,Total 0.5 mg/dl (0.2-1); Calcium 7.1 mg/dl (8.5-10.1); Creatinine Clr Calc Pharmacy 32.7 ml/min; Est GFR (African American) 26.8 ml/min; Est GFR (Non-African American) 23.2 ml/min; Globulin 4.1 gm/dl (2.5-4.0); Phosphorus 2.9 mg/dl (2.5-4.9); Total Protein 6.4 gm/dl (6.4-8.2)
--- NOTE | 2021-10-26 09:11 | Nephrology Progress Note ---
Date of Service October 26, 2021 Assessment & Plan (1) Acute kidney injury superimposed on CKD: Plan: nonoliguric stage 3 SHAYNE on CKD3 > baseline creatinine 1.1-1.2; presented w/ sCreat 3.7, increased to 3.8 12 and plateau'd, now dropping nicely to 2 today. Chemistries remarkable for mild hyperkalemia. Ongoing/borderline hypotension and hemodynamic instability for several days, even after fluid resuscitation and w/ normal /unchanged EF. ?potential toxicity with lexapro, lyrica dosing prior to admission; both on hold now. Strict intake and output No indication for acute dialysis Daily metabolic panel -agree w/ holding lexapro, lyrica -doing well on lowered NS rate; will continue same rate; she is slightly overloaded but we mayhave a post ATN diuresis beginning now (2.1L UOP yesterday after 600 day before) so will hold off on lasix but will get CXR to monitor vol status (02 needs up a bit) >>bibasilar consolidation and R>L effusions; will sto p fluid (2) Sepsis: Plan: meets criteria d/t known UTI and SHAYNE, hypotension. Follow-up pending cultures and response to fluid resuscitation. on cipro for E. coli/Klebsiella UTI -ivf as above (3) Hypotension: Plan: Persistent; no need for pressor; ensure bp taken appropriately (4) Tremor: Plan: ? med toxicity? >> may need to be fed currently; may need neuro eval;not improving Admission and Anticipated Discharge Date Admission Date: October 23, 2021 Subjective feels cough at baseline; no worsening sob; feels her edema is at baseline Review of Systems Review of Systems: All systems reviewed & are unremarkable except as noted in Subjective Physical Exam Constitutional: well developed, well nourished, + morbidly obese, + physical limitations and cooperative; no acute distress Eyes: EOM intact bilaterally ENMT: Ears: no external ear abnormality Nose: no external nose abnormality Mouth: + dry oral mucous membranes Neck: no nuchal rigidity Respiratory: normal respiratory effort Auscultation: + diminished lung sounds Cardiovascular: Rate/Rhythm: regular rate and regular rhythm Extremities: + edema (2+ PEDAL) Gastrointestinal (Abdomen): Inspection/Auscultation: normal bowel sounds Percussion/Palpation: abdomen soft and + ascites; abdomen nontender and no guarding Skin: no rashes, warm and dry RLE bandaged Psychiatric: Orientation: alert and oriented x 3 Speech: normal rate/rhythm/volume of speech Genitourinary: schultz w/ ample clear yellow urine Results & Data ([facility]) Vital Signs (Past 12 Hours) Vital Signs Temp Pulse Pulse Resp BP Pulse Ox 10/26/21 07:05 36.7 C 68 18 122/66 94 10/26/21 02:45 36.8 C 69 16 103/59 L 10/26/21 00:00 68 10/25/21 23:26 36.9 C 69 16 125/55 L 92 Laboratory Results 10/26/21 07:41 10/26/21 07:41
--- NOTE | 2021-10-26 10:15 | XRay Report ---
SINGLE VIEW CHEST CLINICAL HISTORY: Hypoxia. FINDINGS: 2 AP, portable, upright chest radiographs are compared to study dated 10/23/2021 and correl ated with chest CT dated 10/24/2021. The examination is degraded by portable technique, large body coto bitus, and patient rotation. The heart is markedly enlarged. There is pulmonary vascular congestion. There are right larger than left pleural effusions with bibasilar consolidation. Foci of scarring/ate lectasis are seen throughout both lungs. No pneumothorax is seen. The skeletal structures are osteope lae. The bony thorax is grossly intact. IMPRESSION: 1. Cardiomegaly with evidence of congestive failure. This is similar to the 10/23/2021 examination. 2. Right larger than left pleural effusions with bibasilar consolidation. ACT 112: Negative or not required by law. Electronically signed by: Martinez Cuadra M.D. 10/26/2021 10:14 AM
--- NOTE | 2021-10-26 13:02 | Hospitalist Progress Note ---
Date of Service October 26, 2021 Assessment & Plan (1) Acute kidney injury superimposed on CKD: (2) CKD (chronic kidney disease), stage III: Plan: Per [facility] knight's notes with addendum including succeeding assessment and plan: -Patient presenting from home with reports of generalized weakness and tremors/shakes. -In the ED, creatinine found to be 3.7 (baseline 1.1-1.2, labs recently checked as an outpatient on 10/14 and creatinine 1.2) -Suspect likely prerenal in nature due to underlying infection (UTI and/or pneumonia). Patient a poor historian, unsure amount of recent oral intake. Patient is also on Lasix, lisinopril, Metformin (these will be placed on hold). Patient denies any changes in medication recently and denies heavy NSAID use. -CXR suggesting pulmonary vascular congestion, proBNP checked and found to be 7400 which is not terribly high due to patient's size and SHAYNE. -For now, will trial hydration with IVF -Check renal ultrasound -Nephrology consult -Close monitoring of renal functions and electrolytes 10/26/2021 Creatinine improved from 3.8 to 2.00 Urine output improving BP on the soft side- monitor Renal ultrasound unrevealing Continue IV NSS at 50 cc/h Appreciate nephrology service recommendations (3) Abnormal urinalysis: Plan: E coli and Klebsiella UTI -Received IV Levaquin in ED, would like to avoid further fluoroquinolones due to amiodarone and potential QTC prolongation. Will start aztreonam due to patient's anaphylactic reaction to penicillin. -Follow urine and blood cultures 10/26/2021 Urine culture: E coli and Klebsiella Blood cultures negative so far aztreonam (2 days)--> changed to Cipro Day 2/5 Monitor closely (4) Chronic diastolic CHF (congestive heart failure): (5) Moderate aortic stenosis: (6) Shortness of breath: Plan: -Shortness of breath likely multifactorial due to obesity, chronic diastolic CHF, possible pneumonia on CXR -Does not examine to be grossly volume overloaded, attempting IVF hydration as above for SHAYNE -Requiring 2 L of oxygen in ED. Has history of chronic hypoxia however not on home O2. PCP was to arrange recently. -Procalcitonin 0.19, pneumonia may be less likely however receiving aztreonam as above 10/26/2021 CT chest: Trace pleural effusion, no infiltrate to suggest pneumonia Echocardiogram: EF 50 to 55%, moderate aortic stenosis Currently patient on the dry side Gentle IV fluids (7) Paroxysmal atrial flutter: (8) Paroxysmal atrial fibrillation: Plan: -Rhythm controlled on amiodarone, rate controlled on metoprolol --> holding both due to SHAYNE and mild bradycardia -Anticoagulated on Coumadin, INR 4.4 --> hold Coumadin tonight, monitor INR daily -INR 2.5, continue coumadin 2.5mg daily (9) Elevated troponin: Plan: -Troponin 0.156 -EKG without acute ST changes, no reports of chest pain -May be due to underlying renal dysfunction Troponin 0 0.1-0.2 Echocardiogram no wall motion abnormalities (10) Skin excoriation: (11) Sacral wound: Plan: -Patient noted to have very excoriated abdominal folds -nystatin powder ordered -Patient reporting wounds on her sacrum however due to her size and the size of the ED gurney, she was unable to roll for me to further evaluate. -Wound care nurse consult 10/26/2021 Possible bilateral lower extremity cellulitis component Doxycycline PO (12) History of pulmonary embolism: Plan: -On Coumadin, as above (13) DM type 2 (diabetes mellitus, type 2): Plan: -Hgb A1c 6.2 07/2021 -Glucose 89 on labs --> NovoLog only for now (14) History of breast cancer: Plan: -Continue anastrozole (15) Depression: Plan: -Hold Lyrica due to SHAYNE (16) LUZ MARIA (obstructive sleep apnea): Plan: -Noncompliant/intolerant with CPAP (17) DVT prophylaxis: Plan: -On Coumadin, INR 2.5 (18) Discharge planning issues: Plan: -Patient noted to have very excoriated abdominal folds and patient reports sacral wounds. Seems like her is having difficulty taking care of her at home. PT OT consults, case management to follow for possible placement. Admission and Anticipated Discharge Date Admission Date: October 23, 2021 Subjective ff up for acute renal failure, UTI, etc seen resting in bed, comfortable, not in distress, on 2 L of oxygen via nasal cannula In good spirits Bright, alert States she feels slightly better compared to yesterday No dizziness, shortness of breath, cough, abdominal pain, fever chills No other symptoms Review of Systems Review of Systems: all noted and negative except for above Physical Exam Physical Exam: General- oriented x 3, not in distress, speaks in sentences wit h no effort or accessory muscle use Eyes- anicteric Neck- no JVD Lungs- clear BS bilaterally, no crackles or wheezing Heart- normal rate, regular rhythm; no murmurs Abdomen- normal bowel sounds, nondistended, soft, nontender Extremities-grade 1 through 2 lower leg edema, no calf tenderness Neuro- alert, oriented x 3; no gross focal neurologic deficits Skin- warm & dry Results & Data Results & Data ([facility]) Vital Signs (Past 12 Hours) Vital Signs Temp Pulse Resp BP Pulse Ox 10/26/21 11:07 36.8 C 65 24 122/56 L 94 10/26/21 07:05 36.7 C 68 18 122/66 94 10/26/21 02:45 36.8 C 69 16 103/59 L all noted and reviewed including below
[2021-10-26] MEDS ORDERED: WARFARIN SOD 2.5 MG TAB PO SCH (16:00)
[2021-10-26] MEDS: DOXYCYCLINE HYCLATE 100 MG CAP PO SCH (20:50)
[2021-10-26] MEDS: cefTRIAXone SODIUM 2,000 MG in DEXTROSE 5% 50 ML IV SCH (20:51)
[2021-10-26] MEDS ORDERED: CIPROFLOXACIN / D5W 400 MG/200 ML BAG IV SCH (22:00)
[2021-10-26] MEDS: ACETAMINOPHEN 325 MG TAB PO PRN (22:49)
[2021-10-27] MEDS ORDERED: hydrOXYzine HCl 10 MG TAB PO STA (04:52)
[2021-10-27] MEDS ORDERED: FUROSEMIDE 40 MG/4 ML VIAL IV STA (07:37)
[2021-10-27] MEDS ORDERED: FUROSEMIDE 40 MG/4 ML VIAL IV ONE (07:41)
[2021-10-27] MEDS: PANTOprazole 40 MG TAB PO SCH (08:26)
[2021-10-27] MEDS: DOXYCYCLINE HYCLATE 100 MG CAP PO SCH ×2 (08:26→20:31)
[2021-10-27] MEDS: NYSTATIN POWDER 15GM BTL EXT SCH ×2 (08:26→20:29)
[2021-10-27] MEDS: ANASTROZOLE 1 MG TAB PO SCH (08:26)
[2021-10-27] MEDS: INSULIN ASPART PER UNIT SC SCH ×4 (08:27→21:19)
[2021-10-27 08:35] LABS: INR 2.1 (0.9-1.1); Prothrombin Time 20.4 Seconds (9.0-12.0)
[2021-10-27 08:38] LABS: Basophils # (auto) 0.03 K/uL (0-0.2); Basophils % (auto) 0.3 %; Eosinophils # (auto) 0.07 K/uL (0-0.5); Eosinophils % (auto) 0.8 %; Hematocrit (blood only) 35.2 % (37-47); Hemoglobin 9.9 g/dL (12.0-16.0); Immature Granulocytes # (auto) 0.26 K/uL (0.00-0.02); Immature Granulocytes % (auto) 2.8 %; Lymphocytes # (auto) 0.45 K/uL (1.2-3.4); Lymphocytes % (auto) 4.9 %; Mean Corpuscular Hemoglobin 23.3 pg (25-34); Mean Corpuscular Hgb Conc 28.1 g/dL (32-36); Mean Corpuscular Volume 82.8 fL (80-100); Mean Platelet Volume 9.8 fL (7.4-10.4); Monocytes # (auto) 1.09 K/uL (0.11-0.59); Monocytes % (auto) 11.8 %; Neutrophils # (auto) 7.36 K/uL (1.4-6.5); Neutrophils % (auto) 79.4 %; Platelet Count 275 K/uL (130-400); RDW Coefficient of Variation 16.7 % (11.5-14.5); RDW Standard Deviation 50.8 fL (36.4-46.3); Red Blood Count 4.25 M/uL (4.2-5.4); White Blood Count 9.26 K/uL (4.8-10.8)
--- NOTE | 2021-10-27 08:52 | XRay Report ---
XR chest 1V portable CLINICAL HISTORY: hypoxia, r/o pulmonary edema TECHNIQUE: Single frontal radiograph of the chest was obtained. Comparison: Comparison is made to chest one view 10/26/2021 FINDINGS: No lines and tubes are seen. Cardiomegaly is noted. Bilateral lower lung predominant airspace opaciti es are seen. Likely bilateral pleural effusions are seen. IMPRESSION: 1. Bilateral lower lung predominant airspace opacities which may represent atelectasis, pneumonia, a nd/or aspiration. 2. Bilateral pleural effusions, increased from prior exam. ACT 112: Negative or not required by law. Electronically signed by: David Gilbert M.D. 10/27/2021 8:51 AM
[2021-10-27 08:56] LABS: BUN Creatinine Ratio 22.4 (10-20); Calcium 7.7 mg/dl (8.5-10.1); Est GFR (African American) 55.9 ml/min; Est GFR (Non-African American) 48.2 ml/min; Potassium 4.6 mmol/L (3.5-5.1)
--- NOTE | 2021-10-27 08:57 | Hospitalist Progress Note ---
Date of Service October 27, 2021 Assessment & Plan (1) Acute kidney injury superimposed on CKD: (2) CKD (chronic kidney disease), stage III: Plan: Per [facility] knight's notes with addendum including succeeding assessment and plan: -Patient presenting from home with reports of generalized weakness and tremors/shakes. -In the ED, creatinine found to be 3.7 (baseline 1.1-1.2, labs recently checked as an outpatient on 10/14 and creatinine 1.2) -Suspect likely prerenal in nature due to underlying infection (UTI and/or pneumonia). Patient a poor historian, unsure amount of recent oral intake. Patient is also on Lasix, lisinopril, Metformin (these will be placed on hold). Patient denies any changes in medication recently and denies heavy NSAID use. -CXR suggesting pulmonary vascular congestion, proBNP checked and found to be 7400 which is not terribly high due to patient's size and SHAYNE. -For now, will trial hydration with IVF -Check renal ultrasound -Nephrology consult -Close monitoring of renal functions and electrolytes 10/27/2021 Creatinine gradually improved from 3.8 to 2.00 to 1.0 Urine output improving BP marginal, improving Renal ultrasound unrevealing Patient developed tachypnea, respiratory distress this morning Usually on 2 to 3 L of nasal cannula, now on oxygen mask, 6 L, 95% States she feels better after the oxygen mask was placed Chest x-ray bilateral pleural effusion, possible infiltrates versus atelectasis DC IV fluids Lasix 40 mg IV given Continue ceftriaxone plus doxycycline Monitor closely Appreciate nephrology service recommendations (3) Abnormal urinalysis: Plan: E coli and Klebsiella UTI -Received IV Levaquin in ED, would like to avoid further fluoroquinolones due to amiodarone and potential QTC prolongation. Will start aztreonam due to patient' s anaphylactic reaction to penicillin. -Follow urine and blood cultures 10/27/2021 Urine culture: E coli and Klebsiella Blood cultures negative so far aztreonam (2 days)--> changed to ceftriaxone day 3/5 Monitor closely (4) Chronic diastolic CHF (congestive heart failure): (5) Moderate aortic stenosis: (6) Shortness of breath: Plan: -Shortness of breath likely multifactorial due to obesity, chronic diastolic CHF, possible pneumonia on CXR -Does not examine to be grossly volume overloaded, attempting IVF hydration as above for SHAYNE -Requiring 2 L of oxygen in ED. Has history of chronic hypoxia however not on home O2. PCP was to arrange recently. -Procalcitonin 0.19, pneumonia may be less likely however receiving aztreonam as above 10/27/2021 CT chest: Trace pleural effusion, no infiltrate to suggest pneumonia Echocardiogram: EF 50 to 55%, moderate aortic stenosis Management per #1 (7) Paroxysmal atrial flutter: (8) Paroxysmal atrial fibrillation: Plan: -Rhythm controlled on amiodarone, rate controlled on metoprolol --> holding both due to SHAYNE and mild bradycardia -Anticoagulated on Coumadin, INR 4.4 --> hold Coumadin tonight, monitor INR daily -INR 2.1, continue coumadin (9) Elevated troponin: Plan: -Troponin 0.156 -EKG without acute ST changes, no reports of chest pain -May be due to underlying renal dysfunction Troponin 0.1-0.2 Echocardiogram no wall motion abnormalities (10) Skin excoriation: (11) Sacral wound: Plan: -Patient noted to have very excoriated abdominal folds -nystatin powder ordered -Patient reporting wounds on her sacrum however due to her size and the size of the ED gurney, she was unable to roll for me to further evaluate. -Wound care nurse consult 10/27/2021 Possible bilateral lower extremity cellulitis component Doxycycline PO (12) History of pulmonary embolism: Plan: -On Coumadin, as above (13) DM type 2 (diabetes mellitus, type 2): Plan: -Hgb A1c 6.2 07/2021 -Glucose 89 on labs --> NovoLog only for now (14) History of breast cancer: Plan: -Continue anastrozole (15) Depression: Plan: Continue resumed today Lyrica (16) LUZ MARIA (obstructive sleep apnea): Plan: -Noncompliant/intolerant with CPAP (17) DVT prophylaxis: Plan: -On Coumadin, INR 2.1 (18) Discharge planning issues: Plan: -Patient noted to have very excoriated abdominal folds and patient reports sacral wounds. Seems like her is having difficulty taking care of her at home. PT OT consults, case management to follow for possible placement. Admission and Anticipated Discharge Date Admission Date: October 23, 2021 Subjective Follow-up for acute renal failure, UTI, etc. Messaged by RN that patient was hypoxic, respiratory distress Ordered BiPAP, stat x-ray, labs Seen resting in bed, not in distress, has some effort when speaking sentences Refused BiPAP adamantly, states she will never BiPAP Reports improvement with breathing with oxygen mask Denies cough, sputum production, chest pain, palpitations, dizziness No abdominal pain, nausea vomiting No other symptoms Review of Systems Review of Systems: all noted and negative except for above Physical Exam Physical Exam: General- oriented x 3, not in distress, speaks in sentences with no effort or accessory muscle use Eyes- anicteric Neck- no JVD Lungs-decreased breath sounds bilaterally, no rales or wheezing Heart- normal rate, regular rhythm; no murmurs Abdomen- normal bowel sounds, nondistended, soft, nontender Extremities-grade 1 through 2 lower extremity edema with mild erythema, no warmth, no tenderness no calf tenderness Neuro- alert, oriented x 3; no gross focal neurologic deficits Skin- warm & dry Results & Data Results & Data ([facility]) Vital Signs (Past 12 Hours) Vital Signs Temp Pulse Pulse Resp BP Pulse Ox 10/27/21 07:55 37.0 C 66 16 114/69 96 10/27/21 07:54 70 10/27/21 04:00 36.6 C 73 25 H 122/67 95 10/27/21 00:00 67 10/26/21 23:59 36.4 C L 69 18 113/53 L 96 all noted and reviewed including below
[2021-10-27] MEDS: ALUMINUM/MAGNESIUM/SIMETH (MAALOX MAX) 30 ML UDC PO PRN (09:54)
[2021-10-27] MEDS: PREGABALIN 100 MG CAP PO SCH ×2 (10:18→20:29)
[2021-10-27] MEDS: METOPROLOL TARTRATE 25 MG TAB PO SCH ×2 (10:18→20:32)
--- NOTE | 2021-10-27 11:42 | Nephrology Progress Note ---
Date of Service October 27, 2021 Assessment & Plan (1) Acute kidney injury superimposed on CKD: Plan: history of nonoliguric stage 3 SHAYNE on CKD3 today back to baseline but now w/ volume overload > baseline creatinine 1.1-1.2; presented w/ sCreat 3.7, increased to 3.8 12/ and plateau'd, now dropping nicely to 1.1 today. Chemistries acceptable. had 40 mg IV lasix x 1 this am for worsening hypoxia. Ongoing/borderline hypotension and hemodynamic instability for several days, though better today;even after fluid resuscitation and w/ normal /unchanged EF. ?d/t sepsis from E coli/klebsiella UTI?potential toxicity with lexapro, lyrica dosing prior to admission; both on hold now. Strict intake and output No indication for acute dialysis Daily metabolic panel -agree w/ holding lexapro, lyrica -RECOMMEND reassess early/mid afternoon > if 02 needs remain high/worsened respiratory status ongoing, could redose 20-40 mg IV lasix (2) Tremor: Plan: ? med toxicity? >> may need to be fed currently; may need neuro eval;not improving Admission and Anticipated Discharge Date Admission Date: October 23, 2021 Subjective worsening hypoxia noted this am before labs back; cxr yesterday w/ vol OL as well; pt does not c/o worsening sob, edema, n/v; tremor unchanged Review of Systems Review of Systems: All systems reviewed & are unremarkable except as noted in Subjective Physical Exam Constitutional: well developed, well nourished, + morbidly obese, + physical limitations and cooperative; no acute distress Eyes: EOM intact bilaterally ENMT: Ears: no external ear abnormality Nose: no external nose abnormality Mouth: + dry oral mucous membranes Neck: no nuchal rigidity Respiratory: normal respiratory effort Auscultation: + diminished lung sounds (on 6L oxymask) Cardiovascular: Rate/Rhythm: regular rate and regular rhythm Extremities: + edema (2+ PEDAL) Gastrointestinal (Abdomen): Inspection/Auscultation: normal bowel sounds Percussion/Palpation: abdomen soft and + ascites; abdomen nontender and no guarding Skin: no rashes, warm and dry Psychiatric: Orientation: alert and oriented x 3 Speech: normal rate /rhythm/volume of speech Genitourinary: schultz w/ ample light yellow urine Results & Data ([facility]) Vital Signs (Past 12 Hours) Vital Signs Temp Pulse Pulse Resp BP Pulse Ox 10/27/21 10:18 78 26 H 115/65 97 10/27/21 07:55 37.0 C 66 16 114/69 96 10/27/21 07:54 70 10/27/21 04:00 36.6 C 73 25 H 122/67 95 10/27/21 00:00 67 10/26/21 23:59 36.4 C L 69 18 113/53 L 96 Laboratory Results 10/27/21 08:01 10/27/21 08:01
--- NOTE | 2021-10-27 12:27 | Neurology Consultation ---
Date of Consultation October 27, 2021 Assessment & Plan (1) Tremor: 1. once critical illness has been treated will see her in office in 4-6 weeks to further assess 2. would not start treatment at this time 3. will be available for further questions concerns. (2) Paroxysmal atrial fibrillation: 1. cards for further recommendations Supervising Physician Co-Signing Physician Notes I have seen and discussed above patient with Dr Maciel So. Patient was seen and examine. at bedside. A 81 year old woman with multiple medical comorbidities admitted with a UTI and SHAYNE on CKD. She has chronic tremor which has fluctuated since she has been admitted. On examine she appears anxious with labile mood. Mild postural tremor with no voice or head tremor at the moment. No asterixis or myoclonic jerks noted. Anxiety or increased stress often exacerbates most tremors. May need to consider reducing dose of Lyrica as outpatient unclear if contributing to some of her symptoms. VS are stable with no myoclonic jerks. Low suspicion for serotonin syndrome. Outpatient follow up with Neurology for further tremor management. History of Present Illness Reason for Consultation: jerking movements of neck and arms Requesting Physician: Ralf Hoang MD Attending Physician: Ralf Hoang MD History of Present Illness Gloria is a 81 year old female with PMH-DM 2, LUZ MARIA noncompliant with CPAP, paroxysmal SVT, nonsustained V. tach, pAib and flutter on amiodarone and Coumadin chronic diastolic CHF, HTN, aortic stenosis, CKD stage III, history of breast cancer, lymphedema, history of pulmonary embolism on Coumadin. She presents to [facility] 10/23/2021 for evaluation of generalized weakness.Over the past month, she has increased generalized tremors/shakes. This symptom reminded her of when she was very ill at the beginning of the year with cholangitis and bacteremia. The tremors and shakes got acutely worse and when she attempted to ambulate, her legs were giving out from under her. She has chronic hypoxia, multifactorial due to LUZ MARIA and obesity. Her PCP recently resumed 2 L of oxygen continuous. she has a chronic cough productive for white/acute clear sputum and notes increased sputum production over the past week.Her LEs are seeping a clear fluid for which she placed a dressing on. She feels like she can't breath and was tried on bipap which she didn't tolerate. She states she has had a tremor for year but it is much worse now. denies CP, N, V, vision changes, one sided weakness, numbness tingling. Allergies Allergy/AdvReac Type Severity Reaction Status Date / Time Penicillins Allergy Severe SOB Unverified 10/23/21 14:01 ,THROAT SHUT,COULDN'T BREATHE rosiglitazone Allergy Severe UNKNOWN-RELATED Verified 10/23/21 14:01 POSS TO DVT/PE PER MEDICAL RECORD acetaminophen Allergy Intermediate HIVES Verified 10/23/21 14:01 tramadol Allergy Unknown UNKNOWN Verified 10/23/21 14:01 adhesive AdvReac Mild IRRITATES Verified 10/24/21 07:49 SKIN Home Medications Medication Instructions Recorded Confirmed Type anastrozole 1 mg tablet 1 mg PO DAILY 06/12/20 10/23/21 History cyanocobalamin (vitamin B-12) 1,000 mcg PO DAILY 06/12/20 10/23/21 History 1,000 mcg tablet lisinopril 10 mg tablet 10 mg PO DAILY 06/12/20 10/23/21 History metformin 1,000 mg tablet 1,000 mg PO BID 06/12/20 10/23/21 History pregabalin 200 mg capsule (Lyrica) 200 mg PO BID 06/12/20 10/23/21 History cholecalciferol (vitamin D3) 50 50 mcg PO QAM 11/19/20 10/23/21 History mcg (2,000 unit) capsule amiodarone 200 mg tablet 200 mg PO BIDM #60 tab 12/02/20 10/23/21 Rx furosemide 40 mg tablet (Lasix) 40 mg PO DAILY #0 tab 12/02/20 10/23/21 Rx insulin glargine 100 unit/mL 34 units SQ DAILY 01/07/21 10/23/21 History subcutaneous solution (Lantus U-100 Insulin) insulin glargine 100 unit/mL 18 unit SUBCUT HS 10/23/21 10/23/21 History subcutaneous solution (Lantus U-100 Insulin) metoprolol tartrate 50 mg tablet 25 mg PO BID 10/23/21 10/23/21 History pantoprazole 40 mg tablet,delayed 40 mg PO DAILY 10/23/21 10/23/21 History release warfarin 5 mg tablet 2.5 mg PO FR 10/23/21 10/23/21 History warfarin 5 mg tablet 5 mg PO SUMOTUWETHSA 10/23/21 10/23/21 History Patient History Medical History (Updated 10/24/21 @ 13:47 by Julee Roth MD, PhD) Acute cholecystitis due to biliary calculus Cholangitis Chronic diastolic CHF (congestive heart failure) Chronic venous insufficiency CKD (chronic kidney disease), stage III Depression Diabetes mellitus with neuropathy DM type 2 (diabetes mellitus, type 2) E coli bacteremia History of breast cancer LEFT History of paroxysmal atrial tachycardia History of paroxysmal supraventricular tachycardia Seen by [facility] 12/18/20, " Although historically she has been diagnosed with "PSVT" it sounds as though she has also had a diagnosis of atrial flutter and on review of telemetry monitoring strips it looks like she has runs of PAT. She also has a twelve-lead electrocardiogram looking like atrial fibrillation. She probably has all of these arrhythmias, but she is asymptomatic with them. Although the heart rate is quite fast she was started on amiodarone and without symptoms it is hard to say what degree of control we have. I do not think extensive monitoring is indicated. I would continue amiodarone for now." History of pulmonary embolism ? 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 Lymphedema, not elsewhere classified Osteoarthritis PAD (peripheral artery disease) Paroxysmal atrial fibrillation Paroxysmal atrial flutter Poor historian Sleep apnea NO DEVICE USED Vitamin D insufficiency Surgical History H/O left mastectomy History of anesthesia reaction "MY HEART IS EXTRA FAST WHEN I GET ANESTHESIA" History of cataract surgery RT/LEFT History of cholecystectomy History of ERCP History of tonsillectomy History of tooth extraction S/P hysterectomy S/P right rotator cuff repair Family History Grandmother (Paternal) Family history of diabetes mellitus Other Family history non-contributory No family history of adverse response to anesthesia Social History Smoking Status: Never smoker Second Hand Exposure: Yes (IN THE PAST); Hx Alcohol Use: No Hx Substance Use: No Preferred Language: Romanian Communication Ability: Effective Visual Impairment: Limited Hearing Ability: Normal Dehydrogenation Supervisor Required: No Beliefs That Will Affect Care: None marital status: Current Living Situation: Spouse current occupational status: retired Other Information That Helps Us Care for You: No Feels Safe at Home: Yes Safety Concerns: Feels Safe At This Time Assistive Devices: Oxygen - Continuous Review of Systems Review of Systems: All systems reviewed & are unremarkable except as noted in HPI & below Physical Exam Physical Exam: Physical Exam: Constitutional: appearance nourished, obese ill appearing Ears, Nose, Mouth and Throat: mucous membranes moist, no injection and skin normal, eyes normal Cardiovascular: irregular Respiratory: course breath sounds Musculoskeletal: 2++ pitting peripheral edema Skin: heal ulcers, weeping ulcers on both legs Eyes: extraocular muscles intact (EOMI) and pupils equal, round and reactive to light (PERRL) NEUROLOGIC EXAMINATION: Mental status: Alert and interactive Oriented to person Speech fluent with no evidence of aphasia Cranial Nerves facial symmetry Reflexes: Deep tendon reflexes were symmetrical decreased throughout. Sensory: light and cool touch Coordination: finger to nose Gait/Stance: Posture sitting in bed modest distress. Motor: Negative for pronator drift of out stretched arms with eyes closed. 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 unable to assess ankle jerk Results & Data ([facility]) Vital Signs (Past 12 Hours) Vital Signs Temp Pulse Pulse Resp BP Pulse Ox 10/27/21 11:44 36.8 C 76 18 129/69 95 10/27/21 10:18 78 26 H 115/65 97 10/27/21 07:55 37.0 C 66 16 114/69 96 10/27/21 07:54 70 10/27/21 04:00 36.6 C 73 25 H 122/67 95 Laboratory Results Abnormal lab results 10/26/21 10/26/21 10/27/21 Range/Units 16:04 20:20 04:30 Hgb (12.0-16.0) g/dL Hct (37-47) % MCH (25-34) pg MCHC (32-36) g/dL RDW Std Deviation (36.4-46.3) fL RDW Coeff of [place] (11.5-14.5) % Neut # (Auto) (1.4-6.5) K/uL Lymph # (Auto) (1.2-3.4) K/uL Robertson # (Auto) (0.11-0.59) K/uL Immature Gran # (Auto) (0.00-0.02) K/uL PT (9.0-12.0) Seconds INR (0.9-1.1) BUN (7-18) mg/dl BUN/Creatinine Ratio (10-20) Glucose (70-99) mg/dl POC Glucose 171 H 131 H 127 H (70-99) mg/dl Calcium (8.5-10.1) mg/dl Troponin I (0-0.045) ng/ml 10/27/21 10/27/21 10/27/21 Range/Units 07:13 08:01 08:01 Hgb 9.9 L (12.0-16.0) g/dL Hct 35.2 L (37-47) % MCH 23.3 L (25-34) pg MCHC 28.1 L (32-36) g/dL RDW Std Deviation 50.8 H (36.4-46.3) fL RDW Coeff of [place] 16.7 H (11.5-14.5) % Neut # (Auto) 7.36 H (1.4-6.5) K/uL Lymph # (Auto) 0.45 L (1.2-3.4) K/uL Robertson # (Auto) 1.09 H (0.11-0.59) K/uL Immature Gran # (Auto) 0.26 H (0.00-0.02) K/uL PT (9.0-12.0) Seconds INR (0.9-1.1) BUN 24 H (7-18) mg/dl BUN/Creatinine Ratio 22.4 H (10-20) Glucose 137 H (70-99) mg/dl POC Glucose 130 H (70-99) mg/dl Calcium 7.7 L (8.5-10.1) mg/dl Troponin I (0-0.045) ng/ml 10/27/21 10/27/21 10/27/21 Range/Units 08:01 08:01 11:15 Hgb (12.0-16.0) g/dL Hct (37-47) % MCH (25-34) pg MCHC (32-36) g/dL RDW Std Deviation (36.4-46.3) fL RDW Coeff of [place] (11.5-14.5) % Neut # (Auto) (1.4-6.5) K/uL Lymph # (Auto) (1.2-3.4) K/uL Robertson # (Auto) (0.11-0.59) K/uL Immature Gran # (Auto) (0.00-0.02) K/uL PT 20.4 H (9.0-12.0) Seconds INR 2.1 H (0.9-1.1) BUN (7-18) mg/dl BUN/Creatinine Ratio (10-20) Glucose (70-99) mg/dl POC Glucose 150 H (70-99) mg/dl Calcium (8.5-10.1) mg/dl Troponin I 0.063 H* (0-0.045) ng/ml Diagnostic Findings CXR-. Cardiomegaly with pulmonary vascular congestion and right greater than left pleural effusions. . Right basilar consolidation suggests atelectasis versus pneumonia. renal US-No renal calculi or hydronephrosis. . Decompressed urinary bladder with Villarreal catheter. CT chest-Small right and trace left pleural effusions. Extensive atelectasis versus scarring without evidence of pneumonia. Cardiomegaly and pulmonary hypertension. Ascending aortic aneurysm, comparable in size to prior exam. hip x ray-No acute osseous pathology. CXR-ardiomegaly with evidence of congestive failure. This is similar to the 10/23/2021 examination. Right larger than left pleural effusions with bibasilar consolidation. CXR-Bilateral lower lung predominant airspace opacities which may represent atelectasis, pneumonia, and/or aspiration. . Bilateral pleural effusions, increased from prior exam.
[2021-10-27] MEDS ORDERED: MAGNESIUM HYDROXIDE SUSP 30 ML UDC PO PRN (13:03)
[2021-10-27] MEDS ORDERED: MAGNESIUM HYDROXIDE SUSP 30 ML UDC PO ONE (13:03)
[2021-10-27] MEDS: SIMETHICONE 80 MG CHEW PO PRN (13:51)
[2021-10-27] MEDS: WARFARIN SOD 5 MG TAB PO SCH (17:22)
[2021-10-27] MEDS: AMIODARONE 200 MG TAB PO SCH (17:22)
[2021-10-27] MEDS: cefTRIAXone SODIUM 2,000 MG in DEXTROSE 5% 50 ML IV SCH (21:19)
[2021-10-28] MEDS ORDERED: FUROSEMIDE INJ 20 MG/2 ML VIAL IV ONE ×2 (03:15→18:03)
[2021-10-28 06:38] LABS: INR 2.2 (0.9-1.1); Prothrombin Time 20.7 Seconds (9.0-12.0)
[2021-10-28 06:39] LABS: Basophils # (auto) 0.04 K/uL (0-0.2); Basophils % (auto) 0.4 %; Eosinophils # (auto) 0.14 K/uL (0-0.5); Eosinophils % (auto) 1.4 %; Hematocrit (blood only) 34.4 % (37-47); Hemoglobin 9.6 g/dL (12.0-16.0); Immature Granulocytes # (auto) 0.14 K/uL (0.00-0.02); Immature Granulocytes % (auto) 1.4 %; Lymphocytes % (auto) 5.9 %; Mean Corpuscular Hemoglobin 23.5 pg (25-34); Mean Corpuscular Hgb Conc 27.9 g/dL (32-36); Mean Corpuscular Volume 84.1 fL (80-100); Mean Platelet Volume 9.9 fL (7.4-10.4); Monocytes # (auto) 1.18 K/uL (0.11-0.59); Monocytes % (auto) 11.6 %; Neutrophils # (auto) 8.09 K/uL (1.4-6.5); Neutrophils % (auto) 79.3 %; Platelet Count 288 K/uL (130-400); RDW Standard Deviation 52.1 fL (36.4-46.3); Red Blood Count 4.09 M/uL (4.2-5.4); White Blood Count 10.19 K/uL (4.8-10.8)
[2021-10-28 07:14] LABS: Albumin Level 2.4 gm/dl (3.4-5.0); BUN Creatinine Ratio 22.4 (10-20); Calcium 7.7 mg/dl (8.5-10.1); Creatinine Clr Calc Pharmacy 64.6 ml/min; Est GFR (African American) 62.8 ml/min; Est GFR (Non-African American) 54.2 ml/min; Potassium 4.8 mmol/L (3.5-5.1)
[2021-10-28 07:26] LABS: Albumin Globulin Ratio 0.5 (0.9-2); Bilirubin,Total 0.4 mg/dl (0.2-1); Globulin 4.4 gm/dl (2.5-4.0); Phosphorus 1.7 mg/dl (2.5-4.9); Total Protein 6.8 gm/dl (6.4-8.2)
[2021-10-28 07:27] LABS: Magnesium 2.1 mg/dl (1.8-2.4)
[2021-10-28] MEDS: INSULIN ASPART PER UNIT SC SCH ×4 (08:13→20:27)
[2021-10-28] MEDS: METOPROLOL TARTRATE 25 MG TAB PO SCH ×2 (08:14→20:03)
[2021-10-28] MEDS: ANASTROZOLE 1 MG TAB PO SCH (08:14)
[2021-10-28] MEDS: AMIODARONE 200 MG TAB PO SCH ×2 (08:14→17:32)
[2021-10-28] MEDS: NYSTATIN POWDER 15GM BTL EXT SCH ×2 (08:14→21:13)
[2021-10-28] MEDS: PANTOprazole 40 MG TAB PO SCH (08:14)
[2021-10-28] MEDS: DOXYCYCLINE HYCLATE 100 MG CAP PO SCH ×2 (08:14→20:03)
[2021-10-28] MEDS: PREGABALIN 100 MG CAP PO SCH ×2 (08:16→21:13)
[2021-10-28] MEDS ORDERED: POTASSIUM PHOS 3 MMOL/1 ML INFUSION IV STA (09:25)
--- NOTE | 2021-10-28 09:32 | Nephrology Progress Note ---
Date of Service October 28, 2021 Assessment & Plan (1) Acute kidney injury superimposed on CKD: Plan: history of nonoliguric stage 3 SHAYNE on CKD3 today back to baseline but now w/ volume overload /hypoxia > baseline creatinine 1.1-1.2; presented w/ sCreat 3.7, increased to 3.8 12/ and plateau'd, now dropping nicely to 0.9 today. Chemistries acceptable. has been getting intermittent lasix for worsening hypoxia. hemodynamic instability has resolved; took time. ?d/t sepsis from E coli/klebsiella UTI?potential toxicity with lexapro, lyrica dosing prior to ad mission; both on hold now. Strict intake and output starting standing lasix 20 mg IV tid first dose this am -recheck bmp 1600 to see k and renal fnx Daily metabolic panel -agree w/ holding lexapro; has resumed OP dose of lyrica (2) Tremor: Plan: ? med toxicity? >> may need to be fed currently; may need neuro eval;not improv ing Admission and Anticipated Discharge Date Admission Date: October 23, 2021 Subjective had lasix 0300 this am 20 mg IV; still on 6L 02nc; sleepy when I saw her at about 1300 but tells me she's been up and worked w/ PT today; denies exertional dyspna or edema; states tremor less Review of Systems Review of Systems: All systems reviewed & are unremarkable except as noted in Subjective Physical Exam Constitutional: well developed, well nourished, + morbidly obese, + physical limitations and cooperative; no acute distress Eyes: EOM intact bilaterally ENMT: Ears: no external ear abnormality Nose: no external nose abnormality Mouth: + dry oral mucous membranes Neck: no nuchal rigidity Respiratory: normal respiratory effort Auscultation: + diminished lung sounds (on 6L oxymask) Cardiovascular: Rate/Rhythm: regular rate and regular rhythm Extremities: + edema (2+ PEDAL) Gastrointestinal (Abdomen): Inspection/Auscultation: normal bowel sounds Percussion/Palpation: abdomen soft and + ascites; abdomen nontender and no guarding Skin: no rashes, warm and dry Neurologic: noticeably less tremor today but lethargic/really tired Psychiatric: Orientation: alert and oriented x 3 Speech: normal rate/rhythm/volume of speech Genitourinary: schultz w/ ample light urine [facility] & [facility] ([facility]) Vital Signs (Past 12 Hours) Vital Signs Temp Pulse Pulse Resp BP Pulse Ox 10/28/21 09:18 69 10/28/21 07:25 36.6 C 71 19 133/77 93 10/28/21 04:46 96 10/28/21 03:30 36.4 C L 70 24 138/98 93 10/27/21 23:15 36.5 C 60 18 129/76 97 10/27/21 22:00 59 L Laboratory Results 10/28/21 06:11 10/28/21 06:11
[2021-10-28] MEDS ORDERED: POTASSIUM PHOSPHATE 15 MMOL in SODIUM CHLORIDE 0.9% 250 ML IV ONE (09:45)
[2021-10-28] MEDS: FUROSEMIDE INJ 20 MG/2 ML VIAL IV SCH ×3 (10:50→21:14)
[2021-10-28] MEDS: WARFARIN SOD 5 MG TAB PO SCH (15:23)
[2021-10-28 16:40] LABS: BUN Creatinine Ratio 26.3 (10-20); Calcium 7.5 mg/dl (8.5-10.1); Creatinine Clr Calc Pharmacy 68.8 ml/min; Est GFR (African American) 67.7 ml/min; Est GFR (Non-African American) 58.5 ml/min
[2021-10-28] MEDS: PATIROMER CALCIUM SORBITEX 8.4 GM PACK PO SCH (20:02)
[2021-10-28] MEDS: cefTRIAXone SODIUM 2,000 MG in DEXTROSE 5% 50 ML IV SCH (21:13)
--- NOTE | 2021-10-28 22:00 | Hospitalist Progress Note ---
Date of Service October 28, 2021 Assessment & Plan (1) Acute kidney injury superimposed on CKD: (2) CKD (chronic kidney disease), stage III: Plan: Possible due to acute renal failure with ATN due to underlying infection in the setting of diuretic Presenting from home with reports of generalized weakness and tremors/shakes. In the ED, creatinine found to be 3.7 (baseline 1.1-1.2, labs recently checked as an outpatient on 10/14 and creatinine 1.2) Renal ultrasound showed no renal calculi or hydronephrosis. Decompressed urinary bladder with Villarreal catheter. Nephrology consult Creatinine back to normal 0.93 Continue furosemide 20 mg IV 3 times daily per nephrology Continue monitor BMP closely (3) UTI (urinary tract infection): Plan: No evidence of sepsis Urine culture grew E coli and Klebsiella She was started on IV Azactam due to penicillin allergy Blood culture no growth Azactam was changed to ceftriaxone (4) Chronic diastolic CHF (congestive heart failure): (5) Moderate aortic stenosis: (6) Shortness of breath: Plan: Shortness of breath likely multifactorial due to obesity, chronic diastolic CHF, possible pneumonia on CXR History of chronic hypoxia and PCP was trying to arrange for outpatient oxygen supplement CXR showed Bilateral lower lung predominant airspace opacities which may represent atelectasis, pneumonia, and/or aspiration.Bilateral pleural effusions, increased from prior exam. CT chest showed small right and trace left pleural effusions. Extensive atelectasis versus scarring without evidence of pneumonia. ProBNP on admission 7449 Echocardiogram on 10/24 showed EF 60 to 65% %, moderate valvular aortic stenosis Continue Lasix 20 mg IV 3 times daily Continue oxygen supplement We need two-step exercise on discharge (7) Tremor: Plan: Possible related to medication side effect in the setting of acute renal failure Neurology on board-no plan to start on any treatment at this time Follow-up with neurology in 4 to 6 weeks outpatient Clinically improved (8) Paroxysmal atrial flutter: (9) Paroxysmal atrial fibrillation: Plan: Rhythm controlled on amiodarone, rate controlled on metoprolol Continue anticoagulant with Coumadin INR at goal (10) Elevated troponin: Plan: Troponin 0.156 mostly due to SHAYNE EKG without acute ST changes, no reports of chest pain Echocardiogram no wall motion abnormalities Stable (11) Skin excoriation: (12) Sacral wound: Plan: Patient noted to have very excoriated abdominal folds -nystatin powder ordered Patient reporting wounds on her sacrum however due to her size and the size of the ED gurney, she was unable to roll to further evaluate. Wound care nurse on board Doxycycline PO for possible bilateral lower extremity cellulitis (13) History of pulmonary embolism: Plan: -On Coumadin (14) DM type 2 (diabetes mellitus, type 2): Plan: -Hgb A1c 6.2 07/2021 -Glucose 89 on labs --> NovoLog only for now (15) History of breast cancer: Plan: -Continue anastrozole (16) Depression: Plan: Continue resumed today Lyrica (17) LUZ MARIA (obstructive sleep apnea): Plan: -Noncompliant/intolerant with CPAP (18) DVT prophylaxis: Plan: -On Coumadin, INR therapeutic (19) Discharge planning issues: Plan: -Patient noted to have very excoriated abdominal folds and patient reports sacral wounds. Seems like her is having difficulty taking care of her at home. PT OT consults, case management to follow for possible placement. Admission and Anticipated Discharge Date Admission Date: October 23, 2021 Subjective Patient was seen and examined for follow-up of shortness of breath and tremors Sitting on the edge of the bed eating her lunch with no acute distress She said she continued to have shortness of breath and requires 6 L of nasal cannula currently Her tremor has been improved significantly Denies any chest pain, palpitation, dizziness, and fever. Review of Systems Review of Systems: All systems reviewed & are unremarkable except as noted in Subjective Physical Exam Physical Exam: General- No acute distress Head- atraumatic Eyes- PERRL, EOMI, ENT- oropharynx clear Neck- supple, no JVD Lungs-+diminished breath sounds Heart- regular rhythm; no murmur Abdomen- normal bowel sounds, soft, nontender Extremities-+B/L edema Neuro- alert, oriented x 3; PERRL, EOMI; no facial palsy; no dysarthria Skin- warm & dry Results & Data Results & Data ([facility]) Vital Signs (Past 12 Hours) Vital Signs Temp Pulse Pulse Resp BP Pulse Ox 10/28/21 19:01 36.8 C 73 16 121/64 95 10/28/21 15:15 36.6 C 67 19 115/64 91 10/28/21 15:00 60 10/28/21 12:11 36.5 C 61 18 106/60 97
[2021-10-29 08:14] LABS: INR 2.4 (0.9-1.1); Prothrombin Time 22.3 Seconds (9.0-12.0)
[2021-10-29] MEDS: METOPROLOL TARTRATE 25 MG TAB PO SCH ×2 (08:42→19:57)
[2021-10-29] MEDS: SIMETHICONE 80 MG CHEW PO PRN (08:42)
[2021-10-29] MEDS: ANASTROZOLE 1 MG TAB PO SCH (08:42)
[2021-10-29] MEDS: FUROSEMIDE INJ 20 MG/2 ML VIAL IV SCH ×3 (08:42→19:54)
[2021-10-29] MEDS: DOXYCYCLINE HYCLATE 100 MG CAP PO SCH ×2 (08:42→19:53)
[2021-10-29] MEDS: PANTOprazole 40 MG TAB PO SCH (08:43)
[2021-10-29] MEDS: NYSTATIN POWDER 15GM BTL EXT SCH ×2 (08:43→19:58)
[2021-10-29] MEDS: INSULIN ASPART PER UNIT SC SCH ×4 (08:44→20:29)
[2021-10-29 08:45] LABS: Albumin Globulin Ratio 0.5 (0.9-2); Albumin Level 2.2 gm/dl (3.4-5.0); BUN Creatinine Ratio 26.8 (10-20); Bilirubin,Total 0.3 mg/dl (0.2-1); Calcium 7.9 mg/dl (8.5-10.1); Est GFR (African American) 66.9 ml/min; Est GFR (Non-African American) 57.7 ml/min; Globulin 4.3 gm/dl (2.5-4.0); Phosphorus 2.4 mg/dl (2.5-4.9); Potassium 4.8 mmol/L (3.5-5.1); Total Protein 6.5 gm/dl (6.4-8.2)
[2021-10-29] MEDS: AMIODARONE 200 MG TAB PO SCH ×2 (08:45→17:22)
[2021-10-29] MEDS: PREGABALIN 100 MG CAP PO SCH ×2 (08:57→20:00)
[2021-10-29 09:06] LABS: Basophils # (auto) 0.04 K/uL (0-0.2); Basophils % (auto) 0.6 %; Eosinophils # (auto) 0.25 K/uL (0-0.5); Eosinophils % (auto) 3.8 %; Hematocrit (blood only) 33.7 % (37-47); Hemoglobin 9.3 g/dL (12.0-16.0); Immature Granulocytes # (auto) 0.11 K/uL (0.00-0.02); Immature Granulocytes % (auto) 1.7 %; Lymphocytes # (auto) 0.66 K/uL (1.2-3.4); Mean Corpuscular Hemoglobin 23.8 pg (25-34); Mean Corpuscular Hgb Conc 27.6 g/dL (32-36); Mean Corpuscular Volume 86.2 fL (80-100); Mean Platelet Volume 10.3 fL (7.4-10.4); Monocytes # (auto) 0.88 K/uL (0.11-0.59); Monocytes % (auto) 13.4 %; Neutrophils # (auto) 4.63 K/uL (1.4-6.5); Neutrophils % (auto) 70.5 %; Platelet Count 251 K/uL (130-400); RDW Coefficient of Variation 17.5 % (11.5-14.5); RDW Standard Deviation 54.9 fL (36.4-46.3); Red Blood Count 3.91 M/uL (4.2-5.4); White Blood Count 6.57 K/uL (4.8-10.8)
[2021-10-29] MEDS: PATIROMER CALCIUM SORBITEX 8.4 GM PACK PO SCH (09:49)
--- NOTE | 2021-10-29 15:38 | Nephrology Progress Note ---
Date of Service October 29, 2021 Assessment & Plan (1) Acute kidney injury superimposed on CKD: Plan: history of nonoliguric stage 3 SHAYNE on CKD3 today back to baseline but now w/ volume overload /hypoxia > baseline creatinine 1.1-1.2; presented w/ sCreat 3.7, increased to 3.8 12/ and plateau'd, now dropping nicely to 0.9 today. Chemistries acceptable. has been getting intermittent lasix for worsening hypoxia. hemodynamic instability has resolved; took time. ?d/t sepsis from E coli/klebsiella UTI?potential toxicity with lexapro dosing prior to admission; both on hold now. Strict intake and output cont standing lasix 20 mg IV tid; would leave schultz while on this -cont [place] Daily metabolic panel -agree w/ holding lexapro; has resumed OP dose of lyrica (2) Tremor: Plan: ? med toxicity? >> may need to be fed currently; may need neuro eval;not improving Admission and Anticipated Discharge Date Admission Date: October 23, 2021 Subjective no interval events. does get sob w/ anxiety; no home02 at baseline. breathing is better she states; edema stable/ not bothersome Review of Systems Review of Systems: All systems reviewed & are unremarkable except as noted in Subjective Physical Exam Constitutional: well developed, well nourished, + morbidly obese, + physical limitations and cooperative; no acute distress Eyes: EOM intact bilaterally ENMT: Ears: no external ear abnormality Nose: no external nose abnormality Mouth: + dry oral mucous membranes Neck: no nuchal rigidity Respiratory: normal respiratory effort Auscultation: + diminished lung sounds (on 5L oxymask) Cardiovascular: Rate/Rhythm: regular rate and regular rhythm Extremities: + edema (2+ PEDAL) Gastrointestinal (Abdomen): Inspection/Auscultation: normal bowel sounds Percussion/Palpation: abdomen soft and + ascites; abdomen nontender and no guarding Skin: no rashes, warm and dry Neurologic: tremor less prominent; tired/lethargic Psychiatric: Orientation: oriented x 3 Speech: normal rate/rhythm/volume of speech Results & Data ([facility]) Vital Signs (Past 12 Hours) Vital Signs Temp Pulse Resp BP Pulse Ox 10/29/21 11:52 36.8 C 57 L 22 120/52 L 96 10/29/21 07:41 36.5 C 63 22 159/61 H 90 10/29/21 04:04 36.9 C 67 17 159/71 H 90 Laboratory Results 10/29/21 07:40 10/29/21 07:40
[2021-10-29] MEDS: WARFARIN SOD 5 MG TAB PO SCH (17:22)
[2021-10-29] MEDS: cefTRIAXone SODIUM 2,000 MG in DEXTROSE 5% 50 ML IV SCH (19:52)
--- NOTE | 2021-10-29 22:49 | Hospitalist Progress Note ---
Date of Service October 29, 2021 Assessment & Plan (1) Acute kidney injury superimposed on CKD: (2) CKD (chronic kidney disease), stage III: Plan: Possible due to acute renal failure with ATN due to underlying infection in the setting of diuretic Presenting from home with reports of generalized weakness and tremors/shakes. In the ED, creatinine found to be 3.7 (baseline 1.1-1.2, labs recently checked as an outpatient on 10/14 and creatinine 1.2) Renal ultrasound showed no renal calculi or hydronephrosis. Decompressed urinary bladder with Villarreal catheter. Nephrology consult Creatinine back to normal 0.94 Continue furosemide 20 mg IV 3 times daily per nephrology Continue monitor BMP closely (3) UTI (urinary tract infection): Plan: No evidence of sepsis Urine culture grew E coli and Klebsiella She was started on IV Azactam due to penicillin allergy Blood culture no growth Azactam was changed to ceftriaxone will complete a total of 7 days course of antibiotic (4) Chronic diastolic CHF (congestive heart failure): (5) Moderate aortic stenosis: (6) Shortness of breath: Plan: Shortness of breath likely multifactorial due to obesity, chronic diastolic CHF, possible pneumonia on CXR History of chronic hypoxia and PCP was trying to arrange for outpatient oxygen supplement CXR showed Bilateral lower lung predominant airspace opacities which may represent atelectasis, pneumonia, and/or aspiration.Bilateral pleural effusions, increased from prior exam. CT chest showed small right and trace left pleural effusions. Extensive atelectasis versus scarring without evidence of pneumonia. ProBNP on admission 7449 Echocardiogram on 10/24 showed EF 60 to 65% %, moderate valvular aortic stenosis Continue Lasix 20 mg IV 3 times daily Continue to wean off oxygen supplement We need two-step exercise on discharge (7) Hyperkalemia: Plan: Potassium increased to 6 He was started on Veltassa by Nephro Potassium 4.8 today Continue Veltassa as per nephro We will monitor BMP (8) Tremor: Plan: Possible related to medication side effect in the setting of acute renal failure Neurology on board-no plan to start on any treatment at this time Follow-up with neurology in 4 to 6 weeks outpatient Clinically improved (9) Paroxysmal atrial flutter: (10) Paroxysmal atrial fibrillation: Plan: Rhythm controlled on amiodarone, rate controlled on metoprolol Continue anticoagulant with Coumadin INR at goal (11) Elevated troponin: Plan: Troponin 0.156 mostly due to SHAYNE EKG without acute ST changes, no reports of chest pain Echocardiogram no wall motion abnormalities Stable (12) Skin excoriation: (13) Sacral wound: Plan: Patient noted to have very excoriated abdominal folds -nystatin powder ordered Patient reporting wounds on her sacrum however due to her size and the size of the ED gurney, she was unable to roll to further evaluate. Wound care nurse on board Doxycycline PO for possible bilateral lower extremity cellulitis (14) History of pulmonary embolism: Plan: -On Coumadin (15) DM type 2 (diabetes mellitus, type 2): Plan: -Hgb A1c 6.2 07/2021 -Glucose 89 on labs --> NovoLog only for now (16) History of breast cancer: Plan: -Continue anastrozole (17) Depression: Plan: Continue resumed today Lyrica (18) LUZ MARIA (obstructive sleep apnea): Plan: -Noncompliant/intolerant with CPAP (19) DVT prophylaxis: Plan: -On Coumadin, INR therapeutic (20) Discharge planning issues: Plan: -Patient noted to have very excoriated abdominal folds and patient reports sacral wounds. Seems like her is having difficulty taking care of her at home. PT OT consults, case management to follow for possible placement. Admission and Anticipated Discharge Date Admission Date: October 23, 2021 Subjective Patient was seen and examined for follow-up of shortness of breath and tremors Lying in bed with no acute distress She said she continued to have shortness of breath and requires 4.5 L NS of oxygen Denies any chest pain, palpitation, dizziness, and fever. Review of Systems Review of Systems: All systems reviewed & are unremarkable except as noted in Subjective Physical Exam Physical Exam: General- No acute distress Head- atraumatic Eyes- PERRL, EOMI, ENT- oropharynx clear Neck- supple, no JVD Lungs-+diminished breath sounds Heart- regular rhythm; no murmur Abdomen- normal bowel sounds, soft, nontender Extremities-+B/L edema Neuro- alert, oriented x 3; PERRL, EOMI; no facial palsy; no dysarthria Skin- warm & dry Results & Data Results & Data ([facility]) Vital Signs (Past 12 Hours) Vital Signs Temp Pulse Resp BP Pulse Ox 10/29/21 19:02 36.9 C 59 L 20 119/70 93 10/29/21 16:02 36.5 C 57 L 19 108/67 95 10/29/21 11:52 36.8 C 57 L 22 120/52 L 96
[2021-10-30 06:04] LABS: INR 2.2 (0.9-1.1); Prothrombin Time 21.2 Seconds (9.0-12.0)
[2021-10-30 06:37] LABS: BUN Creatinine Ratio 27.4 (10-20); Calcium 8.3 mg/dl (8.5-10.1); Creatinine Clr Calc Pharmacy 74.6 ml/min; Est GFR (African American) 74.5 ml/min; Est GFR (Non-African American) 64.3 ml/min; Magnesium 1.9 mg/dl (1.8-2.4); Potassium 4.6 mmol/L (3.5-5.1)
[2021-10-30 06:38] LABS: Phosphorus 2.9 mg/dl (2.5-4.9)
[2021-10-30 06:41] LABS: Basophils # (auto) 0.04 K/uL (0-0.2); Basophils % (auto) 0.7 %; Eosinophils # (auto) 0.26 K/uL (0-0.5); Eosinophils % (auto) 4.5 %; Hemoglobin 9.1 g/dL (12.0-16.0); Immature Granulocytes # (auto) 0.16 K/uL (0.00-0.02); Immature Granulocytes % (auto) 2.8 %; Lymphocytes # (auto) 0.71 K/uL (1.2-3.4); Lymphocytes % (auto) 12.2 %; Mean Corpuscular Hemoglobin 23.4 pg (25-34); Mean Corpuscular Hgb Conc 27.6 g/dL (32-36); Mean Corpuscular Volume 84.8 fL (80-100); Mean Platelet Volume 10.6 fL (7.4-10.4); Monocytes # (auto) 0.72 K/uL (0.11-0.59); Monocytes % (auto) 12.4 %; Neutrophils # (auto) 3.91 K/uL (1.4-6.5); Neutrophils % (auto) 67.4 %; Platelet Count 250 K/uL (130-400); RDW Coefficient of Variation 17.4 % (11.5-14.5); RDW Standard Deviation 53.6 fL (36.4-46.3); Red Blood Count 3.89 M/uL (4.2-5.4)
[2021-10-30] MEDS: AMIODARONE 200 MG TAB PO SCH ×2 (08:07→16:37)
[2021-10-30] MEDS: SIMETHICONE 80 MG CHEW PO PRN (08:07)
[2021-10-30] MEDS: INSULIN ASPART PER UNIT SC SCH ×4 (08:07→20:44)
[2021-10-30] MEDS: PANTOprazole 40 MG TAB PO SCH (08:08)
[2021-10-30] MEDS: METOPROLOL TARTRATE 25 MG TAB PO SCH ×2 (08:08→20:15)
[2021-10-30] MEDS: FUROSEMIDE INJ 20 MG/2 ML VIAL IV SCH ×3 (08:08→20:13)
[2021-10-30] MEDS: NYSTATIN POWDER 15GM BTL EXT SCH ×2 (08:08→20:17)
[2021-10-30] MEDS: DOXYCYCLINE HYCLATE 100 MG CAP PO SCH ×2 (08:08→20:11)
[2021-10-30] MEDS: ANASTROZOLE 1 MG TAB PO SCH (08:08)
[2021-10-30] MEDS: PREGABALIN 100 MG CAP PO SCH ×2 (08:09→20:43)
[2021-10-30] MEDS: PATIROMER CALCIUM SORBITEX 8.4 GM PACK PO SCH (09:23)
--- NOTE | 2021-10-30 12:47 | Nephrology Progress Note ---
Date of Service October 30, 2021 Assessment & Plan (1) Acute kidney injury superimposed on CKD: Plan: history of nonoliguric stage 3 SHAYNE on CKD3 today back to baseline but now w/ volume overload /hypoxia > baseline creatinine 1.1-1.2; presented w/ sCreat 3.7, increased to 3.8 12/ and plateau'd, now dropping nicely to plateau at 0.9 today. Chemistries acceptable. had been getting intermittent lasix for worsening hypoxia. hemodynamic instability has resolved; took time. ?d/t sepsis from E coli/klebsiella UTI?potential toxicity with lexapro/lyrica dosing prior to admission; lexapro on hold now. Strict intake and output cont standing lasix 20 mg IV tid; would leave schultz while on this -cont veltassa Daily metabolic panel -agree w/ holding lexapro; has resumed OP dose of lyrica (2) Tremor: Plan: ? med toxicity? >> may need to be fed currently; may need neuro eval; seems all but resolved now though still very weak >>PT/OT Admission and Anticipated Discharge Date Admission Date: October 23, 2021 Subjective no interval events clinically; remains on 5L 02NC this am weaned to 4L early PM. no n/v, feels edema and breathing ok. tremors resolved Review of Systems Review of Systems: All systems reviewed & are unremarkable except as noted in Subjective Physical Exam Constitutional: well developed, well nourished, + morbidly obese, + physical limitations and cooperative; no acute distress Eyes: EOM intact bilaterally ENMT: Ears: no external ear abnormality Nose: no external nose abnormality Mouth: + dry oral mucous membranes Neck: no nuchal rigidity Respiratory: normal respiratory effort Auscultation: + diminished lung sounds (on 5L NC at my eval) Cardiovascular: Rate/Rhythm: regular rate and regular rhythm Extremities: + edema (2+ PEDAL) Gastrointestinal (Abdomen): Inspection/Auscultation: normal bowel sounds Percussion/Palpation: abdomen soft and + ascites; abdomen nontender and no guarding Skin: no rashes, warm and dry Neurologic: nelson, fluent speech, generalized weakness Psychiatric: Orientation: oriented x 3 Speech: normal rate/rhythm/volume of speech Results & Data ([facility]) Vital Signs (Past 12 Hours) Vital Signs Temp Pulse Pulse Resp BP Pulse Ox 10/30/21 11:51 36.8 C 62 18 113/68 10/30/21 09:49 52 L 10/30/21 08:00 36.9 C 60 16 127/70 96 10/30/21 03:29 36.6 C 55 L 22 127/70 93 Laboratory Results 10/30/21 05:26 10/30/21 05:26
[2021-10-30] MEDS: ACETAMINOPHEN 325 MG TAB PO PRN (15:39)
[2021-10-30] MEDS ORDERED: WARFARIN SOD 2.5 MG TAB PO SCH (16:00)
[2021-10-30] MEDS: cefTRIAXone SODIUM 2,000 MG in DEXTROSE 5% 50 ML IV SCH (20:10)
--- NOTE | 2021-10-30 22:45 | Hospitalist Progress Note ---
Date of Service October 30, 2021 Assessment & Plan (1) Acute kidney injury superimposed on CKD: (2) CKD (chronic kidney disease), stage III: Plan: Possible due to acute renal failure with ATN due to underlying infection in the setting of diuretic Presenting from home with reports of generalized weakness and tremors/shakes. In the ED, creatinine found to be 3.7 (baseline 1.1-1.2, labs recently checked as an outpatient on 10/14 and creatinine 1.2) Renal ultrasound showed no renal calculi or hydronephrosis. Decompressed urinary bladder with Villarreal catheter. Nephrology consult Creatinine has been stable Continue furosemide 20 mg IV 3 times daily per nephrology Continue monitor BMP closely (3) UTI (urinary tract infection): Plan: No evidence of sepsis Urine culture grew E coli and Klebsiella She was started on IV Azactam due to penicillin allergy Blood culture no growth Azactam was changed to ceftriaxone Completed the course of antibiotic today (4) Chronic diastolic CHF (congestive heart failure): (5) Moderate aortic stenosis: (6) Shortness of breath: Plan: Shortness of breath likely multifactorial due to obesity, chronic diastolic CHF, possible pneumonia on CXR History of chronic hypoxia and PCP was trying to arrange for outpatient oxygen supplement CXR showed Bilateral lower lung predominant airspace opacities which may represent atelectasis, pneumonia, and/or aspiration.Bilateral pleural effusions, increased from prior exam. CT chest showed small right and trace left pleural effusions. Extensive atelectasis versus scarring without evidence of pneumonia. ProBNP on admission 7449 Echocardiogram on 10/24 showed EF 60 to 65% %, moderate valvular aortic stenosis Continue Lasix 20 mg IV 3 times daily Continue to wean off oxygen supplement We need two-step exercise on discharge (7) Hyperkalemia: Plan: Potassium increased to 6 He was started on Veltassa by Nephro Potassium 4.6 today Continue Veltassa as per nephro We will monitor BMP (8) Tremor: Plan: Possible related to medication side effect in the setting of acute renal failure Neurology on board-no plan to start on any treatment at this time Follow-up with neurology in 4 to 6 weeks outpatient Clinically improved (9) Paroxysmal atrial flutter: (10) Paroxysmal atrial fibrillation: Plan: Rhythm controlled on amiodarone, rate controlled on metoprolol Continue anticoagulant with Coumadin INR at goal (11) Elevated troponin: Plan: Troponin 0.156 mostly due to SHAYNE EKG without acute ST changes, no reports of chest pain Echocardiogram no wall motion abnormalities Stable (12) Skin excoriation: (13) Sacral wound: Plan: Patient noted to have very excoriated abdominal folds -nystatin powder ordered Patient reporting wounds on her sacrum however due to her size and the size of the ED gurney, she was unable to roll to further evaluate. Wound care nurse on board Doxycycline PO for possible bilateral lower extremity cellulitis (14) History of pulmonary embolism: Plan: -On Coumadin (15) DM type 2 (diabetes mellitus, type 2): Plan: -Hgb A1c 6.2 07/2021 -Glucose 89 on labs --> NovoLog only for now (16) History of breast cancer: Plan: -Continue anastrozole (17) Depression: Plan: Continue resumed today Lyrica (18) LUZ MARIA (obstructive sleep apnea): Plan: -Noncompliant/intolerant with CPAP (19) DVT prophylaxis: Plan: -On Coumadin, INR therapeutic (20) Discharge planning issues: Plan: -Patient noted to have very excoriated abdominal folds and patient reports sacral wounds. Seems like her is having difficulty taking care of her at home. PT OT consults, case management to follow for possible placement. Admission and Anticipated Discharge Date Admission Date: October 23, 2021 Subjective Patient was seen and examined for follow-up of shortness of breath and tremors Lying in bed with no acute distress She said that her breathing has been improved Denies any chest pain, palpitation, dizziness, and fever. Review of Systems Review of Systems: All systems reviewed & are unremarkable except as noted in Subjective Physical Exam Physical Exam: General- No acute distress Head- atraumatic Eyes- PERRL, EOMI, ENT- oropharynx clear Neck- supple, no JVD Lungs-+diminished breath sounds Heart- regular rhythm; no murmur Abdomen- normal bowel sounds, soft, nontender Extremities-+B/L edema Neuro- alert, oriented x 3; PERRL, EOMI; no facial palsy; no dysarthria Skin- warm & dry Results & Data Results & Data ([facility]) Vital Signs (Past 12 Hours) Vital Signs Temp Pulse Pulse Resp BP Pulse Ox 10/30/21 20:38 36.6 C 54 L 24 134/53 L 96 10/30/21 16:30 36.9 C 74 18 135/77 99 10/30/21 15:07 60 10/30/21 11:51 36.8 C 62 18 113/68
[2021-10-31 06:48] LABS: INR 2.3 (0.9-1.1); Prothrombin Time 22.2 Seconds (9.0-12.0)
[2021-10-31 07:06] LABS: BUN Creatinine Ratio 24.2 (10-20); Calcium 8.6 mg/dl (8.5-10.1); Creatinine Clr Calc Pharmacy 76.9 ml/min; Est GFR (African American) 77.7 ml/min; Est GFR (Non-African American) 67.1 ml/min; Potassium 4.5 mmol/L (3.5-5.1)
[2021-10-31] MEDS: AMIODARONE 200 MG TAB PO SCH ×2 (08:46→17:08)
[2021-10-31] MEDS: METOPROLOL TARTRATE 25 MG TAB PO SCH ×2 (08:46→21:31)
[2021-10-31] MEDS: ANASTROZOLE 1 MG TAB PO SCH (08:47)
[2021-10-31] MEDS: NYSTATIN POWDER 15GM BTL EXT SCH ×2 (08:47→21:32)
[2021-10-31] MEDS: FUROSEMIDE INJ 20 MG/2 ML VIAL IV SCH ×2 (08:47→14:13)
[2021-10-31] MEDS: PANTOprazole 40 MG TAB PO SCH (08:47)
[2021-10-31] MEDS: DOXYCYCLINE HYCLATE 100 MG CAP PO SCH ×2 (08:47→21:30)
[2021-10-31] MEDS: INSULIN ASPART PER UNIT SC SCH ×4 (08:52→21:31)
[2021-10-31] MEDS: PATIROMER CALCIUM SORBITEX 8.4 GM PACK PO SCH (08:54)
[2021-10-31] MEDS: PREGABALIN 100 MG CAP PO SCH ×2 (08:54→21:33)
--- NOTE | 2021-10-31 14:09 | Nephrology Progress Note ---
Date of Service October 31, 2021 Assessment & Plan (1) Acute kidney injury superimposed on CKD: Plan: history of nonoliguric stage 3 SHAYNE on CKD3 today back to baseline but now w/ volume overload /hypoxia > baseline creatinine 1.1-1.2; presented w/ sCreat 3.7, increased to 3.8 12/ and plateau'd, now dropping nicely to plateau at 0.8 today. Chemistries acceptable. had been getting intermittent lasix for worsening hypoxia. hemodynamic instability has resolved; took time. ?d/t sepsis from E coli/klebsiella UTI?potential toxicity with lexapro/lyrica dosing prior to admission; lexapro on hold now. Strict intake and output Increase lasix 30 mg IV tid; would leave schultz while on this -We will stop veltassa Daily metabolic panel (2) Tremor: Plan: Has chronic tremors. Continue work-up for metabolic causes. May need neurology follow-up outpatient Admission and Anticipated Discharge Date Admission Date: October 23, 2021 Subjective Seen for acute kidney injury. She reports improvement. Has chronic shortness of breath on oxygen nasal cannula. Legs are swollen. She is making urine and was net -1.8 L in the past 24 hours Review of Systems Review of Systems: All other systems were reviewed and negative except as noted in HPI Physical Exam Physical Exam: General exam: Appears comfortable, no acute distress. On oxygen nasal cannula HEENT: Pupils are equal and reactive to light Neck: No JVD, neck is supple trachea is midline Respiratory system: Clear breath sounds bilaterally. Gastrointestinal: Abdomen is soft, non distended, non tender, bowel sounds are present CVS: Regular rate and rhythm. No murmurs, rubs or gallops Musculoskeletal: No joint or muscle tenderness Extremities: Non tender, 1+ edema, peripheral pulses are present Neuro: Oriented, no tremors, no focal neurological deficits Skin: No rashes Results & Data ([facility]) Vital Signs (Past 12 Hours) Vital Signs Temp Pulse Pulse Resp BP Pulse Ox 10/31/21 13:21 36.6 C 56 L 18 147/78 H 97 10/31/21 08:00 37.0 C 69 18 132/70 98 10/31/21 06:59 58 L 10/31/21 03:00 36.5 C 54 L 24 133/71 96 Laboratory Results 10/31/21 06:22
[2021-10-31] MEDS: FUROSEMIDE 40 MG/4 ML VIAL IV SCH ×2 (15:07→21:31)
[2021-10-31] MEDS: WARFARIN SOD 5 MG TAB PO SCH (15:17)
[2021-10-31] MEDS: ACETAMINOPHEN 325 MG TAB PO PRN (23:49)
--- NOTE | 2021-10-31 23:53 | Hospitalist Progress Note ---
Date of Service October 31, 2021 Assessment & Plan (1) Acute kidney injury superimposed on CKD: (2) CKD (chronic kidney disease), stage III: Plan: Possible due to acute renal failure with ATN due to underlying infection in the setting of diuretic Presenting from home with reports of generalized weakness and tremors/shakes. In the ED, creatinine found to be 3.7 (baseline 1.1-1.2, labs recently checked as an outpatient on 10/14 and creatinine 1.2) Renal ultrasound showed no renal calculi or hydronephrosis. Decompressed urinary bladder with Villarreal catheter. Nephrology on board Creatinine has been stable Lasix increased to 30 mg IV 3 times daily per nephrology Continue monitor BMP closely (3) UTI (urinary tract infection): Plan: No evidence of sepsis Urine culture grew E coli and Klebsiella She was started on IV Azactam due to penicillin allergy Blood culture no growth Azactam was changed to ceftriaxone Completed the course of antibiotic today (4) Chronic diastolic CHF (congestive heart failure): (5) Moderate aortic stenosis: (6) Shortness of breath: Plan: Shortness of breath likely multifactorial due to obesity, chronic diastolic CHF, possible pneumonia on CXR History of chronic hypoxia and PCP was trying to arrange for outpatient oxygen supplement CXR showed Bilateral lower lung predominant airspace opacities which may represent atelectasis, pneumonia, and/or aspiration.Bilateral pleural effusions, increased from prior exam. CT chest showed small right and trace left pleural effusions. Extensive atelectasis versus scarring without evidence of pneumonia. ProBNP on admission 7449 Echocardiogram on 10/24 showed EF 60 to 65% %, moderate valvular aortic stenosis Lasix increased to 30 mg IV 3 times daily per nephrology Continue to wean off oxygen supplement, currently on 2L NC We need two-step exercise on discharge (7) Hyperkalemia: Plan: Potassium increased to 6 He was started on Veltassa by Nephro Potassium 4.5 today Veltassa discontinued as per nephro Continue monitor BMP (8) Tremor: Plan: Possible related to medication side effect in the setting of acute renal failure Neurology on board-no plan to start on any treatment at this time Follow-up with neurology in 4 to 6 weeks outpatient Clinically improved (9) Paroxysmal atrial flutter: (10) Paroxysmal atrial fibrillation: Plan: Rhythm controlled on amiodarone, rate controlled on metoprolol Continue anticoagulant with Coumadin INR 2.3 at goal (11) Elevated troponin: Plan: Troponin 0.156 mostly due to SHAYNE EKG without acute ST changes, no reports of chest pain Echocardiogram no wall motion abnormalities Stable (12) Skin excoriation: (13) Sacral wound: Plan: Patient noted to have very excoriated abdominal folds -nystatin powder ordered Patient reporting wounds on her sacrum however due to her size and the size of the ED gurney, she was unable to roll to further evaluate. Wound care nurse on board Doxycycline PO for possible bilateral lower extremity cellulitis (14) History of pulmonary embolism: Plan: -On Coumadin (15) DM type 2 (diabetes mellitus, type 2): Plan: -Hgb A1c 6.2 07/2021 -Glucose 89 on labs --> NovoLog only for now (16) History of breast cancer: Plan: -Continue anastrozole (17) Depression: Plan: Continue resumed today Lyrica (18) LUZ MARIA (obstructive sleep apnea): Plan: -Noncompliant/intolerant with CPAP (19) DVT prophylaxis: Plan: -On Coumadin, INR therapeutic (20) Discharge planning issues: Plan: -Patient noted to have very excoriated abdominal folds and patient reports sacral wounds. Seems like her is having difficulty taking care of her at home. PT OT consults, case management to follow for possible placement. Admission and Anticipated Discharge Date Admission Date: October 23, 2021 Subjective Patient was seen and examined for follow-up of shortness of breath and tremors Lying in bed with no acute distress She said that her breathing has feels much better Currently she is on 2L NC and sat is above 90% Denies any chest pain, palpitation, dizziness, and fever. Review of Systems Review of Systems: All systems reviewed & are unremarkable except as noted in Subjective Physical Exam Physical Exam: General- No acute distress Head- atraumatic Eyes- PERRL, EOMI, ENT- oropharynx clear Neck- supple, no JVD Lungs-+diminished breath sounds Heart- regular rhythm; no murmur Abdomen- normal bowel sounds, soft, nontender Extremities-+B/L edema Neuro- alert, oriented x 3; PERRL, EOMI; no facial palsy; no dysarthria Skin- warm & dry Results & Data Results & Data ([facility]) Vital Signs (Past 12 Hours) Vital Signs Temp Pulse Pulse Resp BP Pulse Ox 10/31/21 16:23 36.9 C 72 18 141/63 H 100 10/31/21 16:22 54 L 10/31/21 13:21 36.6 C 56 L 18 147/78 H 97
[2021-11-01 06:58] LABS: INR 2.7 (0.9-1.1); Prothrombin Time 25.4 Seconds (9.0-12.0)
[2021-11-01 07:27] LABS: BUN Creatinine Ratio 22.1 (10-20); Calcium 8.5 mg/dl (8.5-10.1); Creatinine Clr Calc Pharmacy 78.2 ml/min; Est GFR (African American) 80.1 ml/min; Est GFR (Non-African American) 69.1 ml/min
[2021-11-01] MEDS: METOPROLOL TARTRATE 25 MG TAB PO SCH ×2 (08:09→20:32)
[2021-11-01] MEDS: DOXYCYCLINE HYCLATE 100 MG CAP PO SCH ×2 (08:10→20:32)
[2021-11-01] MEDS: AMIODARONE 200 MG TAB PO SCH ×2 (08:10→16:55)
[2021-11-01] MEDS: PANTOprazole 40 MG TAB PO SCH (08:10)
[2021-11-01] MEDS: ANASTROZOLE 1 MG TAB PO SCH (08:10)
[2021-11-01] MEDS: FUROSEMIDE 40 MG/4 ML VIAL IV SCH ×3 (08:12→20:32)
[2021-11-01] MEDS: INSULIN ASPART PER UNIT SC SCH ×3 (08:21→16:48)
[2021-11-01] MEDS: PREGABALIN 100 MG CAP PO SCH ×2 (08:24→20:30)
[2021-11-01] MEDS: NYSTATIN POWDER 15GM BTL EXT SCH ×2 (08:24→20:31)
--- NOTE | 2021-11-01 13:00 | Nephrology Progress Note ---
Date of Service November 01, 2021 Assessment & Plan (1) Acute kidney injury superimposed on CKD: Plan: history of nonoliguric stage 3 SHAYNE on CKD3 today back to baseline but now w/ volume overload /hypoxia > baseline creatinine 1.1-1.2; presented w/ sCreat 3.7, increased to 3.8 12/ and plateau'd, now dropping nicely to plateau at 0.8 today. Chemistries acceptable. had been getting intermittent lasix for worsening hypoxia. hemodynamic instability has resolved; took time. ?d/t sepsis from E coli/klebsiella UTI?potential toxicity with lexapro/lyrica dosing prior to admission; lexapro on hold now. Strict intake and output Continue lasix 30 mg IV tid; would leave schultz while on this Daily metabolic panel (2) Tremor: Plan: Has chronic tremors. Continue work-up for metabolic causes. May need neurology follow-up outpatient Admission and Anticipated Discharge Date Admission Date: October 23, 2021 Subjective Seen for volume overload. No SOB. Legs are swollen. She made 3.8l of urine Review of Systems Review of Systems: All other systems were reviewed and negative except as noted in HPI Physical Exam Physical Exam: General exam: Appears comfortable, no acute distress. On oxygen nasal cannula HEENT: Pupils are equal and reactive to light Neck: No JVD, neck is supple trachea is midline Respiratory system: Clear breath sounds bilaterally. Gastrointestinal: Abdomen is soft, non distended, non tender, bowel sounds are present CVS: Regular rate and rhythm. No murmurs, rubs or gallops Musculoskeletal: No joint or muscle tenderness Extremities: Non tender, 1+ edema, peripheral pulses are present Neuro: Oriented, no tremors, no focal neurological deficits Skin: No rashes Results & Data ([facility]) Vital Signs (Past 12 Hours) Vital Signs Temp Pulse Pulse Resp BP Pulse Ox 11/01/21 10:56 36.5 C 54 L 19 106/60 92 11/01/21 08:03 36.4 C L 54 L 17 128/54 L 92 11/01/21 08:00 53 L 11/01/21 02:35 36.4 C L 55 L 20 132/61 92 Laboratory Results 11/01/21 06:13
[2021-11-01] MEDS: WARFARIN SOD 5 MG TAB PO SCH (15:00)
[2021-11-01] MEDS ORDERED: COUGH DROP (SUGAR FREE) LOZ 24 LOZ/1 BOX BUCCAL STA (19:29)
[2021-11-01] MEDS: ALUMINUM/MAGNESIUM/SIMETH (MAALOX MAX) 30 ML UDC PO PRN (20:30)
[2021-11-01] MEDS: ACETAMINOPHEN 325 MG TAB PO PRN (20:30)
--- NOTE | 2021-11-01 23:34 | Hospitalist Progress Note ---
Date of Service November 01, 2021 Assessment & Plan (1) Acute kidney injury superimposed on CKD: (2) CKD (chronic kidney disease), stage III: Plan: Possible due to acute renal failure with ATN due to underlying infection in the setting of diuretic Presenting from home with reports of generalized weakness and tremors/shakes. In the ED, creatinine found to be 3.7 (baseline 1.1-1.2, labs recently checked as an outpatient on 10/14 and creatinine 1.2) Renal ultrasound showed no renal calculi or hydronephrosis. Decompressed urinary bladder with Villarreal catheter. Nephrology on board Creatinine has been stable Continue Lasix 30mg 3 times daily as per nephrology Continue monitor BMP closely (3) UTI (urinary tract infection): Plan: No evidence of sepsis Urine culture grew E coli and Klebsiella She was started on IV Azactam due to penicillin allergy Blood culture no growth Azactam was changed to ceftriaxone Completed the course of antibiotic today (4) Chronic diastolic CHF (congestive heart failure): (5) Moderate aortic stenosis: (6) Shortness of breath: Plan: Shortness of breath likely multifactorial due to obesity, chronic diastolic CHF, possible pneumonia on CXR History of chronic hypoxia and PCP was trying to arrange for outpatient oxygen supplement CXR showed Bilateral lower lung predominant airspace opacities which may represent atelectasis, pneumonia, and/or aspiration.Bilateral pleural effusions, increased from prior exam. CT chest showed small right and trace left pleural effusions. Extensive atelectasis versus scarring without evidence of pneumonia. ProBNP on admission 7449 Echocardiogram on 10/24 showed EF 60 to 65% %, moderate valvular aortic stenosis Lasix increased to 30 mg IV 3 times daily per nephrology Continue to wean off oxygen supplement, currently on 2L NC Will need two-step exercise on discharge (7) Hyperkalemia: Plan: Potassium increased to 6 He was started on Veltassa by Nephro Potassium 4 today Veltassa discontinued as per nephro Continue monitor BMP (8) Tremor: Plan: Possible related to medication side effect in the setting of acute renal failure Neurology on board-no plan to start on any treatment at this time Follow-up with neurology in 4 to 6 weeks outpatient Clinically improved (9) Paroxysmal atrial flutter: (10) Paroxysmal atrial fibrillation: Plan: Rhythm controlled on amiodarone, rate controlled on metoprolol Continue anticoagulant with Coumadin INR 2.7 at goal (11) Elevated troponin: Plan: Troponin 0.156 mostly due to SHAYNE EKG without acute ST changes, no reports of chest pain Echocardiogram no wall motion abnormalities Stable (12) Skin excoriation: (13) Sacral wound: Plan: Patient noted to have very excoriated abdominal folds -nystatin powder ordered Patient reporting wounds on her sacrum however due to her size and the size of the ED gurney, she was unable to roll to further evaluate. Wound care nurse on board Doxycycline PO for possible bilateral lower extremity cellulitis (14) History of pulmonary embolism: Plan: -On Coumadin (15) DM type 2 (diabetes mellitus, type 2): Plan: Hgb A1c 6.2 07/2021 On NovoLog sliding scale Continue monitor blood sugar (16) History of breast cancer: Plan: -Continue anastrozole (17) Depression: Plan: Continue resumed today Lyrica (18) LUZ MARIA (obstructive sleep apnea): Plan: -Noncompliant/intolerant with CPAP (19) DVT prophylaxis: Plan: -On Coumadin, INR therapeutic (20) Discharge planning issues: Plan: -Patient noted to have very excoriated abdominal folds and patient reports sacral wounds. Seems like her is having difficulty taking care of her at home. PT OT consults, case management to follow for possible placement. Admission and Anticipated Discharge Date Admission Date: October 23, 2021 Subjective Patient was seen and examined for follow-up of shortness of breath and tremors Lying in bed with no acute distress She said that her breathing is getting better She said she has moving much around Patient is interested to go to rehab Denies any chest pain, palpitation, dizziness, and fever. Review of Systems Review of Systems: All systems reviewed & are unremarkable except as noted in Subjective Physical Exam Physical Exam: General- No acute distress Head- atraumatic Eyes- PERRL, EOMI, ENT- oropharynx clear Neck- supple, no JVD Lungs-+diminished breath sounds Heart- regular rhythm; no murmur Abdomen- normal bowel sounds, soft, nontender Extremities-+B/L edema Neuro- alert, oriented x 3; PERRL, EOMI; no facial palsy; no dysarthria Skin- warm & dry Results & Data Results & Data ([facility]) Vital Signs (Past 12 Hours) Vital Signs Temp Pulse Resp BP Pulse Ox 11/01/21 18:58 36.8 C 58 L 17 146/85 H 93 11/01/21 16:10 37.0 C 58 L 19 127/71 93
[2021-11-02] MEDS: INSULIN ASPART PER UNIT SC SCH ×5 (01:24→20:58)
[2021-11-02] MEDS: PANTOprazole 40 MG TAB PO SCH (08:54)
[2021-11-02] MEDS: FUROSEMIDE 40 MG/4 ML VIAL IV SCH ×3 (08:55→20:59)
[2021-11-02] MEDS: METOPROLOL TARTRATE 25 MG TAB PO SCH ×2 (08:56→20:57)
[2021-11-02] MEDS: DOXYCYCLINE HYCLATE 100 MG CAP PO SCH (08:57)
[2021-11-02] MEDS: AMIODARONE 200 MG TAB PO SCH ×2 (08:57→17:00)
[2021-11-02] MEDS: ANASTROZOLE 1 MG TAB PO SCH (08:57)
[2021-11-02] MEDS: PREGABALIN 100 MG CAP PO SCH ×2 (09:04→20:56)
[2021-11-02 09:11] LABS: BUN Creatinine Ratio 24.1 (10-20); Calcium 8.7 mg/dl (8.5-10.1); Creatinine Clr Calc Pharmacy 88.6 ml/min; Est GFR (African American) 93.9 ml/min; Potassium 3.9 mmol/L (3.5-5.1)
--- NOTE | 2021-11-02 09:51 | Nephrology Progress Note ---
Date of Service November 02, 2021 Assessment & Plan Admission and Anticipated Discharge Date Admission Date: October 23, 2021 Subjective Assessment & Plan (1) Acute kidney injury superimposed on CKD: Plan: history of nonoliguric stage 3 SHAYNE on CKD3 today back to baseline but now w/ volume overload /hypoxia > baseline creatinine 1.1-1.2; presented w/ sCreat 3.7, increased to 3.8 12/ and plateau'd, now dropping nicely to plateau at 0.7 today. Chemistries acceptable. Strict intake and output Continue lasix 30 mg IV tid; would leave schultz while on this--did make 3.7 liters urine and labs improved so continue Iv lasix for now. Daily metabolic panel (2) Tremor: Plan: Has chronic tremors. Continue work-up for metabolic causes. May need neurology follow-up outpatient Admission and Anticipated Discharge Date Admission Date: October 23, 2021 Subjective Seen for volume overload. No SOB. Legs are swollen. She made 3.8l of urine Review of Systems Review of Systems: All other systems were reviewed and negative except as noted in HPI Physical Exam Physical Exam: General exam: Appears comfortable, no acute distress. On oxyge n nasal cannula HEENT: Pupils are equal and reactive to light Neck: No JVD, neck is supple trachea is midline Respiratory system: Clear breath sounds bilaterally. Gastrointestinal: Abdomen is soft, non distended, non tender, bowel sounds are present CVS: Regular rate and rhythm. No murmurs, rubs or gallops Musculoskeletal: No joint or muscle tenderness Extremities: Non tender, 1+ edema, peripheral pulses are present Neuro: Oriented, no tremors, no focal neurological deficits Results & Data ([facility]) Vital Signs (Past 12 Hours) Vital Signs Temp Pulse Pulse Resp BP Pulse Ox 11/02/21 08:00 58 L 11/02/21 07:18 36.5 C 61 16 154/76 H 95 11/02/21 04:24 36.4 C L 61 18 145/69 H 91 11/01/21 23:30 36.4 C L 58 L 16 147/66 H 94
[2021-11-02] MEDS: NYSTATIN POWDER 15GM BTL EXT SCH ×2 (10:04→20:57)
[2021-11-02 10:26] LABS: INR 2.9 (0.9-1.1); Prothrombin Time 27.2 Seconds (9.0-12.0)
[2021-11-02] MEDS: WARFARIN SOD 5 MG TAB PO SCH (17:00)
--- NOTE | 2021-11-02 21:20 | Hospitalist Progress Note ---
Date of Service November 02, 2021 Assessment & Plan (1) Acute kidney injury superimposed on CKD: (2) CKD (chronic kidney disease), stage III: Plan: Possible due to acute renal failure with ATN due to underlying infection in the setting of diuretic Presenting from home with reports of generalized weakness and tremors/shakes. In the ED, creatinine found to be 3.7 (baseline 1.1-1.2, labs recently checked as an outpatient on 10/14 and creatinine 1.2) Renal ultrasound showed no renal calculi or hydronephrosis. Decompressed urinary bladder with Villarreal catheter. Nephrology on board Creatinine has been stable Continue Lasix 30mg 3 times daily as per nephrology Pt has been diuresis well Continue monitor BMP closely (3) UTI (urinary tract infection): Plan: No evidence of sepsis Urine culture grew E coli and Klebsiella She was started on IV Azactam due to penicillin allergy Blood culture no growth Azactam was changed to ceftriaxone Completed the course of antibiotic (4) Chronic diastolic CHF (congestive heart failure): (5) Moderate aortic stenosis: (6) Shortness of breath: Plan: Shortness of breath likely multifactorial due to obesity, chronic diastolic CHF, possible pneumonia on CXR History of chronic hypoxia and PCP was trying to arrange for outpatient oxygen supplement CXR showed Bilateral lower lung predominant airspace opacities which may represent atelectasis, pneumonia, and/or aspiration.Bilateral pleural effusions, increased from prior exam. CT chest showed small right and trace left pleural effusions. Extensive atelectasis versus scarring without evidence of pneumonia. ProBNP on admission 7449 Echocardiogram on 10/24 showed EF 60 to 65% %, moderate valvular aortic stenosis Lasix increased to 30 mg IV 3 times daily per nephrology Continue to wean off oxygen supplement, currently on 2L NC Will need two-step exercise on discharge (7) Hyperkalemia: Plan: Potassium increased to 6 He was started on Veltassa by Nephro Potassium 4 today Veltassa discontinued as per nephro Continue monitor BMP (8) Tremor: Plan: Possible related to medication side effect in the setting of acute renal failure Neurology on board-no plan to start on any treatment at this time Follow-up with neurology in 4 to 6 weeks outpatient Clinically improved (9) Paroxysmal atrial flutter: (10) Paroxysmal atrial fibrillation: Plan: Rhythm controlled on amiodarone, rate controlled on metoprolol Continue anticoagulant with Coumadin INR 2.7 at goal (11) Elevated troponin: Plan: Troponin 0.156 mostly due to SHAYNE EKG without acute ST changes, no reports of chest pain Echocardiogram no wall motion abnormalities Stable (12) Skin excoriation: (13) Sacral wound: Plan: Patient noted to have very excoriated abdominal folds -nystatin powder ordered Patient reporting wounds on her sacrum however due to her size and the size of the ED gurney, she was unable to roll to further evaluate. Wound care nurse on board Will complete the course of abx bilateral lower extremity cellulitis (14) History of pulmonary embolism: Plan: -On Coumadin (15) DM type 2 (diabetes mellitus, type 2): Plan: Hgb A1c 6.2 07/2021 On NovoLog sliding scale Continue monitor blood sugar (16) History of breast cancer: Plan: -Continue anastrozole (17) Depression: Plan: Continue resumed today Lyrica (18) LUZ MARIA (obstructive sleep apnea): Plan: -Noncompliant/intolerant with CPAP (19) DVT prophylaxis: Plan: -On Coumadin, INR therapeutic (20) Discharge planning issues: Plan: -Patient noted to have very excoriated abdominal folds and patient reports sacral wounds. Seems like her is having difficulty taking care of her at home. PT OT consults, case management to follow for possible placement. Admission and Anticipated Discharge Date Admission Date: October 23, 2021 Subjective Patient was seen and examined for follow-up of shortness of breath and tremors Lying in bed with no acute distress Pt said that her breathing is getting much better Patient is interested to go to rehab Denies any chest pain, palpitation, dizziness, and fever. Review of Systems Review of Systems: All systems reviewed & are unremarkable except as noted in Subjective Physical Exam Physical Exam: General- No acute distress Head- atraumatic Eyes- PERRL, EOMI, ENT- oropharynx clear Neck- supple, no JVD Lungs-+diminished breath sounds Heart- regular rhythm; no murmur Abdomen- normal bowel sounds, soft, nontender Extremities-+B/L edema Neuro- alert, oriented x 3; PERRL, EOMI; no facial palsy; no dysarthria Skin- warm & dry Results & Data Results & Data ([facility]) Vital Signs (Past 12 Hours) Vital Signs Temp Pulse Pulse Resp BP Pulse Ox 11/02/21 19:08 37.1 C 60 20 106/70 94 11/02/21 16:00 54 L 11/02/21 15:47 36.9 C 80 16 111/64 96 11/02/21 11:37 36.5 C 53 L 18 138/62 97
[2021-11-03] MEDS: PANTOprazole 40 MG TAB PO SCH (07:54)
[2021-11-03] MEDS: ANASTROZOLE 1 MG TAB PO SCH (07:54)
[2021-11-03] MEDS: METOPROLOL TARTRATE 25 MG TAB PO SCH ×2 (07:55→20:12)
[2021-11-03] MEDS: AMIODARONE 200 MG TAB PO SCH ×2 (07:55→17:07)
[2021-11-03] MEDS: FUROSEMIDE 40 MG/4 ML VIAL IV SCH ×3 (07:58→20:11)
[2021-11-03] MEDS: PREGABALIN 100 MG CAP PO SCH ×2 (07:58→20:17)
[2021-11-03] MEDS: NYSTATIN POWDER 15GM BTL EXT SCH ×2 (08:55→20:12)
[2021-11-03] MEDS: INSULIN ASPART PER UNIT SC SCH ×4 (08:55→20:13)
--- NOTE | 2021-11-03 09:39 | Nephrology Progress Note ---
Date of Service November 03, 2021 Assessment & Plan Admission and Anticipated Discharge Date Admission Date: October 23, 2021 Subjective Subjective Assessment & Plan (1) Acute kidney injury superimposed on CKD: Plan: history of nonoliguric stage 3 SHAYNE on CKD3 today back to baseline but now w/ volume overload /hypoxia > baseline creatinine 1.1-1.2; presented w/ sCreat 3.7, increased to 3.8 12/ and plateau'd, now dropping nicely to plateau at 0.7 today. Chemistries acceptable. Strict intake and output Continue lasix 30 mg IV tid; would leave schultz while on this--did make 3.7 liters urine and labs improved so continue Iv lasix for now. Daily metabolic panel--today missing but we can do tomorrow (2) Tremor: Plan: Has chronic tremors. Continue work-up for metabolic causes. May need neurology follow-up outpatient Subjective Seen for volume overload. No SOB. Legs are swollen. She made 3.7 l of urine Review of Systems Review of Systems: All other systems were reviewed and negative except as noted in HPI Physical Exam Physical Exam: General exam: Appears comfortable, no acute distress. On oxygen nasal cannula HEENT: Pupils are equal and reactive to light Neck: No JVD, neck is supple trachea is midline Respiratory system: Clear breath sounds bilaterally. Gastrointestinal: Abdomen is soft, non distended, non tender, bowel sounds are present CVS: Regular rate and rhythm. No murmurs, rubs or gallops Musculoskeletal: No joint or muscle tenderness Extremities: Non tender, 1+ edema, peripheral pulses are present Neuro: Oriented, no tremors, no focal neurological deficits Results & Data ([place]) Vital Signs (Past 12 Hours) Vital Signs Temp Pulse Pulse Resp BP Pulse Ox 11/03/21 07:31 36.6 C 65 16 172/79 H 92 11/03/21 03:28 36.7 C 73 18 164/66 H 99 11/02/21 23:31 37.0 C 62 17 140/60 94 11/02/21 23:00 56 L
[2021-11-03] MEDS: WARFARIN SOD 5 MG TAB PO SCH (17:05)
[2021-11-03] MEDS: ALUMINUM/MAGNESIUM/SIMETH (MAALOX MAX) 30 ML UDC PO PRN (20:10)
--- NOTE | 2021-11-03 22:33 | Hospitalist Progress Note ---
Date of Service November 03, 2021 Assessment & Plan (1) Acute kidney injury superimposed on CKD: (2) CKD (chronic kidney disease), stage III: Plan: Possible due to acute renal failure with ATN due to underlying infection in the setting of diuretic Presenting from home with reports of generalized weakness and tremors/shakes. In the ED, creatinine found to be 3.7 (baseline 1.1-1.2, labs recently checked as an outpatient on 10/14 and creatinine 1.2) Renal ultrasound showed no renal calculi or hydronephrosis. Decompressed urinary bladder with Villarreal catheter. Nephrology on board Creatinine has been stable Continue Lasix 30mg 3 times daily as per nephrology Pt has been diuresis well Case discussed with nephrology recommend to transition to p.o. diuretic once ready to discharge to rehab Continue monitor BMP closely (3) UTI (urinary tract infection): Plan: No evidence of sepsis Urine culture grew E coli and Klebsiella She was started on IV Azactam due to penicillin allergy Blood culture no growth Azactam was changed to ceftriaxone Completed the course of antibiotic (4) Chronic diastolic CHF (congestive heart failure): (5) Moderate aortic stenosis: (6) Shortness of breath: Plan: Shortness of breath likely multifactorial due to obesity, chronic diastolic CHF, possible pneumonia on CXR History of chronic hypoxia and PCP was trying to arrange for outpatient oxygen supplement CXR showed Bilateral lower lung predominant airspace opacities which may represent atelectasis, pneumonia, and/or aspiration.Bilateral pleural effusions, increased from prior exam. CT chest showed small right and trace left pleural effusions. Extensive atelectasis versus scarring without evidence of pneumonia. ProBNP on admission 7449 Echocardiogram on 10/24 showed EF 60 to 65% %, moderate valvular aortic stenosis Lasix increased to 30 mg IV 3 times daily per nephrology Continue to wean off oxygen supplement, currently on 2L NC Will need two-step exercise on discharge (7) Hyperkalemia: Plan: Potassium increased to 6 He was started on Veltassa by Nephro Potassium 4 today Veltassa discontinued as per nephro Continue monitor BMP (8) Tremor: Plan: Possible related to medication side effect in the setting of acute renal failure Neurology on board-no plan to start on any treatment at this time Follow-up with neurology in 4 to 6 weeks outpatient Clinically improved (9) Paroxysmal atrial flutter: (10) Paroxysmal atrial fibrillation: Plan: Rhythm controlled on amiodarone, rate controlled on metoprolol Continue anticoagulant with Coumadin INR 2.7 at goal (11) Elevated troponin: Plan: Troponin 0.156 mostly due to SHAYNE EKG without acute ST changes, no reports of chest pain Echocardiogram no wall motion abnormalities Stable (12) Skin excoriation: (13) Sacral wound: Plan: Patient noted to have very excoriated abdominal folds -nystatin powder ordered Patient reporting wounds on her sacrum however due to her size and the size of the ED gurney, she was unable to roll to further evaluate. Wound care nurse on board Completed the course of antibiotic with doxy (14) History of pulmonary embolism: Plan: -On Coumadin (15) DM type 2 (diabetes mellitus, type 2): Plan: Hgb A1c 6.2 07/2021 On NovoLog sliding scale Continue monitor blood sugar (16) History of breast cancer: Plan: -Continue anastrozole (17) Depression: Plan: Continue resumed today Lyrica (18) LUZ MARIA (obstructive sleep apnea): Plan: -Noncompliant/intolerant with CPAP (19) DVT prophylaxis: Plan: -On Coumadin, INR therapeutic (20) Discharge planning issues: Plan: -Patient noted to have very excoriated abdominal folds and patient reports sacral wounds. Seems like her is having difficulty taking care of her at home. PT OT consults, case management to follow for possible placement. Admission and Anticipated Discharge Date Admission Date: October 23, 2021 Subjective Patient was seen and examined for follow-up of shortness of breath Lying on the recliner with no acute distress Pt said that her breathing is getting much better Patient is interested to go to rehab Denies any chest pain, palpitation, dizziness, and fever. Review of Systems Review of Systems: All systems reviewed & are unremarkable except as noted in Subjective Physical Exam Physical Exam: General- No acute distress Head- atraumatic Eyes- PERRL, EOMI, ENT- oropharynx clear Neck- supple, no JVD Lungs-+diminished breath sounds Heart- regular rhythm; no murmur Abdomen- normal bowel sounds, soft, nontender Extremities-+B/L edema Neuro- alert, oriented x 3; PERRL, EOMI; no facial palsy; no dysarthria Skin- warm & dry Results & Data Results & Data ([facility]) Vital Signs (Past 12 Hours) Vital Signs Temp Pulse Pulse Resp BP Pulse Ox 11/03/21 19:04 37.2 C 60 18 137/69 94 11/03/21 16:01 36.6 C 56 L 160/75 H 95 11/03/21 16:00 56 L 11/03/21 11:47 36.6 C 61 16 128/70 94
[2021-11-04 06:34] LABS: INR 3.5 (0.9-1.1)
[2021-11-04 07:36] LABS: Calcium 8.9 mg/dl (8.5-10.1); Creatinine Clr Calc Pharmacy 80.4 ml/min; Est GFR (African American) 85.1 ml/min; Est GFR (Non-African American) 73.4 ml/min; Potassium 3.6 mmol/L (3.5-5.1)
[2021-11-04] MEDS: AMIODARONE 200 MG TAB PO SCH ×2 (08:49→16:52)
[2021-11-04] MEDS: PREGABALIN 100 MG CAP PO SCH ×2 (08:50→21:07)
[2021-11-04] MEDS: ANASTROZOLE 1 MG TAB PO SCH (08:50)
[2021-11-04] MEDS: METOPROLOL TARTRATE 25 MG TAB PO SCH ×2 (08:50→21:07)
[2021-11-04] MEDS: PANTOprazole 40 MG TAB PO SCH (08:50)
[2021-11-04] MEDS: INSULIN ASPART PER UNIT SC SCH ×4 (08:50→21:06)
[2021-11-04] MEDS: NYSTATIN POWDER 15GM BTL EXT SCH ×2 (08:54→21:01)
[2021-11-04] MEDS: FUROSEMIDE 40 MG/4 ML VIAL IV SCH (08:54)
--- NOTE | 2021-11-04 09:45 | Nephrology Progress Note ---
Date of Service November 04, 2021 Assessment & Plan Admission and Anticipated Discharge Date Admission Date: October 23, 2021 Subjective Assessment & Plan (1) Acute kidney injury superimposed on CKD: Plan: history of nonoliguric stage 3 SHAYNE on CKD3 today back to baseline but now w/ volume overload /hypoxia > baseline creatinine 1.1-1.2; presented w/ sCreat 3.7, increased to 3.8 12 and plateau'd, now dropping nicely to plateau at 0.7 today. Chemistries acceptable. Strict intake and output At this point will Stop iv lasix; would leave schultz while on this--did make 3.1 liters urine and labs improved Change to Po lasix 40 bid ( her prior home dose was 40 Daily). Lasix dose needs to be adjused at the [facility] by the provider while there. Daily metabolic panel (2) Tremor: Plan: Has chronic tremors. Continue work-up for metabolic causes. May need neurology follow-up outpatient Subjective Seen for volume overload. No SOB. Legs are swollen. She made 3.7 l of urine Review of Systems Review of Systems: All other systems were reviewed and negative except as noted in HPI Physical Exam Physical Exam: General exam: Appears comfortable, no acute distress. On oxygen nasal cannula HEENT: Pupils are equal and reactive to light Neck: No JVD, neck is supple trachea is midline Respiratory system: Clear breath sounds bilaterally. Gastrointestinal: Abdomen is soft, non distended, non tender, bowel sounds are present CVS: Regular rate and rhythm. No murmurs, rubs or gallops Musculoskeletal: No joint or muscle tenderness Extremities: Non tender, 1+ edema, peripheral pulses are present Neuro: Oriented, no tremors, no focal neurological deficits Results & Data ([facility]) Vital Signs (Past 12 Hours) Vital Signs Temp Pulse Pulse Resp BP Pulse Ox 11/04/21 07:18 36.5 C 55 L 18 121/63 94 11/04/21 03:14 36.4 C L 54 L 18 118/63 96 11/03/21 23:11 36.9 C 54 L 18 130/51 L 96 11/03/21 23:00 52 L
--- NOTE | 2021-11-04 11:10 | Hospitalist Progress Note ---
Date of Service November 04, 2021 Assessment & Plan (1) Acute kidney injury superimposed on CKD: (2) CKD (chronic kidney disease), stage III: Plan: SHAYNE has resolved Currently volume overloaded Has been on IV Lasix 20 mg 3 times daily Discussed with construction teacher. Lasix changed to p.o. 40 mg twice daily. Cocoa Bean Roaster Helper recommend the patient be on this for at least short-term. Will need reevaluation at the long term facility some Lasix 40 daily at home. (3) UTI (urinary tract infection): Plan: No evidence of sepsis Urine culture grew E coli and Klebsiella She was started on IV Azactam due to penicillin allergy Blood culture no growth Azactam was changed to ceftriaxone Completed the course of antibiotic (4) Chronic diastolic CHF (congestive heart failure): (5) Moderate aortic stenosis: (6) LUZ MARIA (obstructive sleep apnea): (7) Shortness of breath: Plan: Shortness of breath likely multifactorial due to obesity, chronic diastolic CHF, possible pneumonia on CXR History of chronic hypoxia and PCP was trying to arrange for outpatient oxygen supplement CXR showed Bilateral lower lung predominant airspace opacities which may represent atelectasis, pneumonia, and/or aspiration.Bilateral pleural effusions, increased from prior exam. CT chest showed small right and trace left pleural effusions. Extensive atelectasis versus scarring without evidence of pneumonia. ProBNP on admission 7449 Echocardiogram on 10/24 showed EF 60 to 65% %, moderate valvular aortic stenosis Continue to wean oxygen as tolerated Patient also has LUZ MARIA but has not been compliant with CPAP. Bicarb is elevated. This could be due to LUZ MARIA plus or minus diuretic use. Spent quite some time counseling patient on need for LUZ MARIA management. She agreed to discuss further with her PCP about trying different masks as the mask was her problem (8) Hyperkalemia: Plan: Potassium increased to 6 He was started on Veltassa by Nephro which has been discontinued as per nephro Continue monitor BMP K is 3.6 today (9) Tremor: Plan: Possible related to medication side effect in the setting of acute renal failure Neurology on board-no plan to start on any treatment at this time Follow-up with neurology in 4 to 6 weeks outpatient Clinically improved (10) Paroxysmal atrial flutter: (11) Paroxysmal atrial fibrillation: Plan: Rhythm controlled on amiodarone, rate controlled on metoprolol Continue anticoagulant with Coumadin INR 3.5 today Hold warfarin for today and monitor (12) Elevated troponin: Plan: Troponin 0.156 mostly due to SHAYNE EKG without acute ST changes, no reports of chest pain Echocardiogram no wall motion abnormalities Stable (13) Skin excoriation: (14) Sacral wound: Plan: Wound care nurse on board Completed the course of antibiotic with doxy (15) History of pulmonary embolism: Plan: -On Coumadin (16) DM type 2 (diabetes mellitus, type 2): Plan: Hgb A1c 6.2 07/2021 On NovoLog sliding scale Continue monitor blood sugar (17) History of breast cancer: Plan: -Continue anastrozole (18) Depression: Plan: Continue Lyrica (19) DVT prophylaxis: Plan: -On Coumadin, INR supratherapeutic today Monitor (20) Discharge planning issues: Plan: -CM working on placement Admission and Anticipated Discharge Date Admission Date: October 23, 2021 Subjective 81-year-old female with PMH DM type II, LUZ MARIA noncompliant with CPAP, paroxysmal SVT, nonsustained V. tach, paroxysmal atrial fibrillation and flutter on amiodarone and Coumadin chronic diastolic CHF, HTN, aortic stenosis, CKD stage III, history of breast cancer, lymphedema, history of pulmonary embolism on Coumadin, and other problems who presented to the ED for evaluation of generalized weakness Was being managed for SHAYNE on CKD 3 and UTI. Became volume overloaded. Patient seen and examined Denies any chest pain shortness of breath. Reports some occasional dry cough. Still has leg swelling. Denies nausea, vomiting, diarrhea. Reports occasional heartburn which responds to as needed medication. Denies diarrhea. Physical Exam Constitutional: + well hydrated and + obese; no acute distress Eyes: PERRL, conjunctivae normal, anicteric sclerae ENMT: external ear and nose normal, oropharynx normal Respiratory: normal respiratory effort, lungs clear to auscultation Cardiovascular: Rate/Rhythm: regular rate and regular rhythm S1 S2 Gastrointestinal (Abdomen): normal bowel sounds, soft, nontender, no hepatosplenomegaly Musculoskeletal: Bilateral leg edema Neurologic: PERRL, EOMI, accommodation nl, no face palsy, no dysarthria Psychiatric: A+Ox3, euthymic affect Genitourinary: [place] in situ Results & Data Results & Data ([facility]) Vital Signs (Past 12 Hours) Vital Signs Temp Pulse Resp BP Pulse Ox 11/04/21 07:18 36.5 C 55 L 18 121/63 94 11/04/21 03:14 36.4 C L 54 L 18 118/63 96 11/03/21 23:11 36.9 C 54 L 18 130/51 L 96 Laboratory Results Abnormal lab results 11/03/21 11/03/21 11/04/21 Range/Units 16:32 20:04 05:52 PT (9.0-12.0) Seconds INR (0.9-1.1) Chloride 93 L (98-107) mmol/L Carbon Dioxide 41 H* (21-32) mmol/L BUN/Creatinine Ratio 21.0 H (10-20) Glucose 135 H (70-99) mg/dl POC Glucose 125 H 155 H (70-99) mg/dl 11/04/21 11/04/21 11/04/21 Range/Units 05:52 07:20 11:21 PT 32.0 H (9.0-12.0) Seconds INR 3.5 H (0.9-1.1) Chloride (98-107) mmol/L Carbon Dioxide (21-32) mmol/L BUN/Creatinine Ratio (10-20) Glucose (70-99) mg/dl POC Glucose 149 H 168 H (70-99) mg/dl
[2021-11-04] MEDS: FUROSEMIDE 40 MG TAB PO SCH (16:54)
[2021-11-04] MEDS: ACETAMINOPHEN 325 MG TAB PO PRN (22:20)
[2021-11-05 08:12] LABS: INR 3.1 (0.9-1.1); Prothrombin Time 29.1 Seconds (9.0-12.0)
[2021-11-05 08:13] LABS: Hematocrit (blood only) 36.5 % (37-47); Hemoglobin 10.2 g/dL (12.0-16.0); Mean Corpuscular Hemoglobin 23.9 pg (25-34); Mean Corpuscular Hgb Conc 27.9 g/dL (32-36); Mean Corpuscular Volume 85.5 fL (80-100); Mean Platelet Volume 10.4 fL (7.4-10.4); Platelet Count 311 K/uL (130-400); RDW Coefficient of Variation 17.8 % (11.5-14.5); RDW Standard Deviation 55.2 fL (36.4-46.3); Red Blood Count 4.27 M/uL (4.2-5.4); White Blood Count 5.45 K/uL (4.8-10.8)
[2021-11-05] MEDS: INSULIN ASPART PER UNIT SC SCH ×4 (08:43→21:15)
[2021-11-05] MEDS: FUROSEMIDE 40 MG TAB PO SCH ×2 (08:44→16:40)
[2021-11-05] MEDS: PANTOprazole 40 MG TAB PO SCH (08:44)
[2021-11-05] MEDS: ANASTROZOLE 1 MG TAB PO SCH (08:44)
[2021-11-05] MEDS: METOPROLOL TARTRATE 25 MG TAB PO SCH ×2 (08:44→21:15)
[2021-11-05] MEDS: NYSTATIN POWDER 15GM BTL EXT SCH ×2 (08:44→21:25)
[2021-11-05] MEDS: AMIODARONE 200 MG TAB PO SCH ×2 (08:44→16:40)
[2021-11-05] MEDS: PREGABALIN 100 MG CAP PO SCH ×2 (08:46→21:24)
[2021-11-05 09:06] LABS: BUN Creatinine Ratio 16.8 (10-20); Calcium 9.2 mg/dl (8.5-10.1); Creatinine Clr Calc Pharmacy 72.4 ml/min; Est GFR (African American) 75.5 ml/min; Est GFR (Non-African American) 65.2 ml/min; Potassium 3.9 mmol/L (3.5-5.1)
--- NOTE | 2021-11-05 11:44 | Hospitalist Progress Note ---
Date of Service November 05, 2021 Assessment & Plan (1) Acute kidney injury superimposed on CKD: (2) CKD (chronic kidney disease), stage III: Plan: SHAYNE has resolved Currently volume overloaded Had been on IV Lasix 20 mg 3 times daily now changed to p.o. 40 mg twice daily. Pig Lead Melter Helper recommend the patient be on this for at least short-term. Will need reevaluation at the [place] [facility] facility some Lasix 40 daily at home. (3) UTI (urinary tract infection): Plan: No evidence of sepsis Urine culture grew E coli and Klebsiella She was started on IV Azactam due to penicillin allergy Blood culture no growth Azactam was changed to ceftriaxone Completed the course of antibiotic (4) Chronic diastolic CHF (congestive heart failure): (5) Moderate aortic stenosis: (6) LUZ MARIA (obstructive sleep apnea): (7) Shortness of breath: Plan: Shortness of breath likely multifactorial due to obesity, chronic diastolic CHF, possible pneumonia on CXR History of chronic hypoxia and PCP was trying to arrange for outpatient oxygen supplement CXR showed Bilateral lower lung predominant airspace opacities which may represent atelectasis, pneumonia, and/or aspiration.Bilateral pleural effusions, increased from prior exam. CT chest showed small right and trace left pleural effusions. Extensive atelectasis versus scarring without evidence of pneumonia. ProBNP on admission 7449 Echocardiogram on 10/24 showed EF 60 to 65% %, moderate valvular aortic stenosis Continue to wean oxygen as tolerated Patient also has LUZ MARIA but has not been compliant with CPAP. Bicarb is elevated. This could be due to LUZ MARIA plus or minus diuretic use. She agreed to discuss further with her PCP about trying different masks as the mask was her problem She is open to try BiPAP at bedtime while inpatient. Ordered (8) Hyperkalemia: Plan: Potassium increased to 6 He was started on Veltassa by Nephro which has been discontinued as per nephro Continue monitor BMP K is 3.9 today (9) Tremor: Plan: Possible related to medication side effect in the setting of acute renal failure Neurology on board-no plan to start on any treatment at this time Follow-up with neurology in 4 to 6 weeks outpatient Clinically improved (10) Paroxysmal atrial flutter: (11) Paroxysmal atrial fibrillation: Plan: Rhythm controlled on amiodarone, rate controlled on metoprolol Continue anticoagulant with Coumadin INR 3.1 today Hold warfarin for today and resume tomorrow (12) Elevated troponin: Plan: Troponin 0.156 mostly due to SHAYNE EKG without acute ST changes, no reports of chest pain Echocardiogram no wall motion abnormalities Stable (13) Skin excoriation: (14) Sacral wound: Plan: Wound care nurse on board Completed the course of antibiotic with doxy (15) History of pulmonary embolism: Plan: -On Coumadin (16) DM type 2 (diabetes mellitus, type 2): Plan: Hgb A1c 6.2 07/2021 On NovoLog sliding scale Continue monitor blood sugar (17) History of breast cancer: Plan: -Continue anastrozole (18) Depression: Plan: Continue Lyrica (19) DVT prophylaxis: Plan: INR supratherapeutic today Monitor Awaiting placement (20) Discharge planning issues: Admission and Anticipated Discharge Date Admission Date: October 23, 2021 Subjective 81-year-old female with PMH DM type II, LUZ MARIA noncompliant with CPAP, paroxysmal SVT, nonsustained V. tach, paroxysmal atrial fibrillation and flutter on amiodarone and Coumadin chronic diastolic CHF, HTN, aortic stenosis, CKD stage III, history of breast cancer, lymphedema, history of pulmonary embolism on Coumadin, and other problems who presented to the ED for evaluation of generalized weakness Was being managed for SHAYNE on CKD 3 and UTI. Became volume overloaded. Patient seen and examined Denies any chest pain or shortness of breath. Reports some occasional dry cough. Still has leg swelling. Reports feeling groggy on waking up this AM Denies nausea, vomiting, diarrhea, abd pain Physical Exam Constitutional: + well hydrated and + obese; no acute distress Eyes: PERRL, conjunctivae normal, anicteric sclerae ENMT: external ear and nose normal, oropharynx normal Respiratory: normal respiratory effort, lungs clear to auscultation Cardiovascular: Rate/Rhythm: regular rate and regular rhythm S1 S2 Gastrointestinal (Abdomen): normal bowel sounds, soft, nontender, no hepatosplenomegaly Musculoskeletal: Bilateral leg edema Neurologic: PERRL, EOMI, accommodation nl, no face palsy, no dysarthria Psychiatric: A+Ox3, euthymic affect Results & Data Results & Data ([facility]) Vital Signs (Past 12 Hours) Vital Signs Temp Pulse Pulse Resp BP Pulse Ox 11/05/21 08:39 36.7 C 52 L 22 126/66 97 11/05/21 07:00 60 11/05/21 04:37 36.5 C 59 L 18 164/69 H 96 11/04/21 23:59 36.6 C 55 L 18 135/56 L 94 Laboratory Results Abnormal lab results 11/04/21 11/05/21 11/05/21 Range/Units 20:04 07:30 07:46 Hgb (12.0-16.0) g/dL Hct (37-47) % MCH (25-34) pg MCHC (32-36) g/dL RDW Std Deviation (36.4-46.3) fL RDW Coeff of [place] (11.5-14.5) % PT 29.1 H (9.0-12.0) Seconds INR 3.1 H (0.9-1.1) Chloride (98-107) mmol/L Carbon Dioxide (21-32) mmol/L Glucose (70-99) mg/dl POC Glucose 163 H 144 H (70-99) mg/dl 11/05/21 11/05/21 11/05/21 Range/Units 07:46 07:46 10:51 Hgb 10.2 L (12.0-16.0) g/dL Hct 36.5 L (37-47) % MCH 23.9 L (25-34) pg MCHC 27.9 L (32-36) g/dL RDW Std Deviation 55.2 H (36.4-46.3) fL RDW Coeff of [place] 17.8 H (11.5-14.5) % PT (9.0-12.0) Seconds INR (0.9-1.1) Chloride 95 L (98-107) mmol/L Carbon Dioxide 42 H* (21-32) mmol/L Glucose 153 H (70-99) mg/dl POC Glucose 193 H (70-99) mg/dl 11/05/21 Range/Units 16:18 Hgb (12.0-16.0) g/dL Hct (37-47) % MCH (25-34) pg MCHC (32-36) g/dL RDW Std Deviation (36.4-46.3) fL RDW Coeff of [place] (11.5-14.5) % PT (9.0-12.0) Seconds INR (0.9-1.1) Chloride (98-107) mmol/L Carbon Dioxide (21-32) mmol/L Glucose (70-99) mg/dl POC Glucose 160 H (70-99) mg/dl
[2021-11-06 06:46] LABS: INR 2.5 (0.9-1.1); Prothrombin Time 23.5 Seconds (9.0-12.0)
[2021-11-06 07:08] LABS: BUN Creatinine Ratio 18.2 (10-20); Calcium 8.8 mg/dl (8.5-10.1); Est GFR (African American) 70.5 ml/min; Est GFR (Non-African American) 60.8 ml/min; Potassium 3.5 mmol/L (3.5-5.1)
[2021-11-06] MEDS: PREGABALIN 100 MG CAP PO SCH ×2 (08:59→20:59)
[2021-11-06] MEDS: AMIODARONE 200 MG TAB PO SCH ×2 (09:00→16:11)
[2021-11-06] MEDS: METOPROLOL TARTRATE 25 MG TAB PO SCH ×2 (09:00→20:57)
[2021-11-06] MEDS: FUROSEMIDE 40 MG TAB PO SCH ×2 (09:00→16:12)
[2021-11-06] MEDS: ANASTROZOLE 1 MG TAB PO SCH (09:01)
[2021-11-06] MEDS: PANTOprazole 40 MG TAB PO SCH (09:01)
[2021-11-06] MEDS: NYSTATIN POWDER 15GM BTL EXT SCH ×2 (09:02→21:00)
[2021-11-06] MEDS: INSULIN ASPART PER UNIT SC SCH ×4 (09:06→21:11)
--- NOTE | 2021-11-06 11:46 | Hospitalist Progress Note ---
Date of Service November 06, 2021 Assessment & Plan (1) Acute kidney injury superimposed on CKD: (2) CKD (chronic kidney disease), stage III: Plan: SHAYNE has resolved Became volume overloaded Was on IV Lasix 20 mg 3 times daily now changed to p.o. 40 mg twice daily. Traffic Rate Clerk recommend the patient be on this for at least short-term. Will need reevaluation at the senior care facility some Lasix 40 daily at home. (3) UTI (urinary tract infection): Plan: No evidence of sepsis Urine culture grew E coli and Klebsiella She was started on IV Azactam due to penicillin allergy Blood culture no growth Azactam was changed to ceftriaxone Completed the course of antibiotic (4) Chronic diastolic CHF (congestive heart failure): (5) Moderate aortic stenosis: (6) LUZ MARIA (obstructive sleep apnea): (7) Shortness of breath: Plan: Shortness of breath likely multifactorial due to obesity, chronic diastolic CHF, possible pneumonia on CXR History of chronic hypoxia and PCP was trying to arrange for outpatient oxygen supplement CXR showed Bilateral lower lung predominant airspace opacities which may represent atelectasis, pneumonia, and/or aspiration.Bilateral pleural effusions, increased from prior exam. CT chest showed small right and trace left pleural effusions. Extensive atelectasis versus scarring without evidence of pneumonia. ProBNP on admission 7449 Echocardiogram on 10/24 showed EF 60 to 65% %, moderate valvular aortic stenosis Continue to wean oxygen as tolerated Patient also has LUZ MARIA but has not been compliant with CPAP. Bicarb is elevated. This could be due to LUZ MARIA plus or minus diuretic use. She agreed to discuss further with her PCP about trying different masks as the mask was her problem. Needs outpatient sleep study (8) Hyperkalemia: Plan: Potassium increased to 6 He was started on Veltassa by Nephro which has been discontinued as per nephro Continue monitor BMP K is 3.5 today (9) Tremor: Plan: Possible related to medication side effect in the setting of acute renal failure Neurology on board-no plan to start on any treatment at this time Follow-up with neurology in 4 to 6 weeks outpatient Clinically improved (10) Paroxysmal atrial flutter: (11) Paroxysmal atrial fibrillation: Plan: Rhythm controlled on amiodarone, rate controlled on metoprolol Continue anticoagulant with Coumadin INR 2.5 today Resume warfarin (12) Elevated troponin: Plan: Troponin 0.156 mostly due to SHAYNE EKG without acute ST changes, no reports of chest pain Echocardiogram no wall motion abnormalities Stable (13) Skin excoriation: (14) Sacral wound: Plan: Wound care nurse on board Completed the course of antibiotic with doxy (15) History of pulmonary embolism: Plan: -On Coumadin (16) DM type 2 (diabetes mellitus, type 2): Plan: Hgb A1c 6.2 07/2021 On NovoLog sliding scale Continue monitor blood sugar (17) History of breast cancer: Plan: Continue anastrozole (18) Depression: Plan: Continue Lyrica (19) DVT prophylaxis: Plan: On coumadin Monitor Awaiting placement Discontinue tele (20) Discharge planning issues: Admission and Anticipated Discharge Date Admission Date: October 23, 2021 Subjective 81-year-old female with PMH DM type II, LUZ MARIA noncompliant with CPAP, paroxysmal SVT, nonsustained V. tach, paroxysmal atrial fibrillation and flutter on amiodarone and Coumadin chronic diastolic CHF, HTN, aortic stenosis, CKD stage III, history of breast cancer, lymphedema, history of pulmonary embolism on Coumadin, and other problems who presented to the ED for evaluation of generalized weakness Was being managed for SHAYNE on CKD 3 and UTI. Became volume overloaded. Patient seen and examined Denies any chest pain or shortness of breath. No cough today. Still has leg swelling. Denies nausea, vomiting, diarrhea, abd pain No new complaints Physical Exam Constitutional: + well hydrated and + obese; no acute distress Eyes: PERRL, conjunctivae normal, anicteric sclerae ENMT: external ear and nose normal, oropharynx normal Respiratory: normal respiratory effort, lungs clear to auscultation Cardiovascular: Rate/Rhythm: regular rhythm and + bradycardic S1 S2 Gastrointestinal (Abdomen): normal bowel sounds, soft, nontender, no hepatosplenomegaly Musculoskeletal: Leg edema Neurologic: PERRL, EOMI, accommodation nl, no face palsy, no dysarthria Psychiatric: A+Ox3, euthymic affect Results & Data Results & Data ([facility]) Vital Signs (Past 12 Hours) Vital Signs Temp Pulse Pulse Resp BP Pulse Ox 11/06/21 11:13 36.6 C 51 L 18 109/67 96 11/06/21 07:30 36.5 C 58 L 69 18 132/69 97 11/06/21 04:58 68 11/06/21 02:37 36.5 C 60 19 129/55 L 92 Laboratory Results Abnormal lab results 11/05/21 11/05/21 11/06/21 Range/Units 16:18 21:06 06:06 PT 23.5 H (9.0-12.0) Seconds INR 2.5 H (0.9-1.1) Chloride (98-107) mmol/L Carbon Dioxide (21-32) mmol/L Anion Gap (3-11) Glucose (70-99) mg/dl POC Glucose 160 H 145 H (70-99) mg/dl 11/06/21 11/06/21 11/06/21 Range/Units 06:06 07:36 11:13 PT (9.0-12.0) Seconds INR (0.9-1.1) Chloride 96 L (98-107) mmol/L Carbon Dioxide 41 H* (21-32) mmol/L Anion Gap 2.0 L (3-11) Glucose 161 H (70-99) mg/dl POC Glucose 171 H 162 H (70-99) mg/dl
[2021-11-06] MEDS: WARFARIN SOD 2.5 MG TAB PO SCH (16:08)
[2021-11-07 07:51] LABS: INR 1.8 (0.9-1.1); Prothrombin Time 17.7 Seconds (9.0-12.0)
[2021-11-07 08:01] LABS: BUN Creatinine Ratio 21.6 (10-20); Calcium 8.6 mg/dl (8.5-10.1); Creatinine Clr Calc Pharmacy 67.3 ml/min; Est GFR (African American) 69.5 ml/min; Potassium 3.4 mmol/L (3.5-5.1)
[2021-11-07] MEDS ORDERED: POTASSIUM CHLORIDE CRTAB 20 MEQ TABCR PO STA (08:36)
[2021-11-07] MEDS: PANTOprazole 40 MG TAB PO SCH (08:55)
[2021-11-07] MEDS: METOPROLOL TARTRATE 25 MG TAB PO SCH ×2 (08:56→20:16)
[2021-11-07] MEDS: FUROSEMIDE 40 MG TAB PO SCH ×2 (08:56→16:45)
[2021-11-07] MEDS: AMIODARONE 200 MG TAB PO SCH ×2 (08:57→16:45)
[2021-11-07] MEDS: ANASTROZOLE 1 MG TAB PO SCH (08:58)
[2021-11-07] MEDS: PREGABALIN 100 MG CAP PO SCH ×2 (09:00→20:05)
[2021-11-07] MEDS: NYSTATIN POWDER 15GM BTL EXT SCH ×2 (09:01→21:05)
[2021-11-07] MEDS: INSULIN ASPART PER UNIT SC SCH ×4 (09:04→21:04)
--- NOTE | 2021-11-07 11:38 | Hospitalist Progress Note ---
Date of Service November 07, 2021 Assessment & Plan (1) Acute kidney injury superimposed on CKD: (2) CKD (chronic kidney disease), stage III: Plan: SHAYNE has resolved Became volume overloaded Was on IV Lasix 20 mg 3 times daily now changed to p.o. 40 mg twice daily. Service Center Specialist recommend the patient be on this for at least short-term. Will need reevaluation at the assisted facility some Lasix 40 daily at home. K is 3.4 today. Replete and monitor (3) UTI (urinary tract infection): Plan: No evidence of sepsis Urine culture grew E coli and Klebsiella She was started on IV Azactam due to penicillin allergy Blood culture no growth Azactam was changed to ceftriaxone Completed the course of antibiotic (4) Chronic diastolic CHF (congestive heart failure): (5) Moderate aortic stenosis: (6) LUZ MARIA (obstructive sleep apnea): (7) Shortness of breath: Plan: Shortness of breath likely multifactorial due to obesity, chronic diastolic CHF, possible pneumonia on CXR History of chronic hypoxia and PCP was trying to arrange for outpatient oxygen supplement CXR showed Bilateral lower lung predominant airspace opacities which may represent atelectasis, pneumonia, and/or aspiration.Bilateral pleural effusions, increased from prior exam. CT chest showed small right and trace left pleural effusions. Extensive ate lectasis versus scarring without evidence of pneumonia. ProBNP on admission 7449 Echocardiogram on 10/24 showed EF 60 to 65% %, moderate valvular aortic stenosis Continue to wean oxygen as tolerated Patient also has LUZ MARIA but has not been compliant with CPAP. Bicarb is elevated. This could be due to LUZ MARIA plus or minus diuretic use. She agreed to discuss further with her PCP about trying different masks as the mask was her problem. Needs outpatient sleep study (8) Hyperkalemia: Plan: Potassium increased to 6 He was started on Veltassa by Nephro which has been discontinued as per nephro Continue monitor BMP K is 3.4 today (9) Tremor: Plan: Possible related to medication side effect in the setting of acute renal failure Neurology on board-no plan to start on any treatment at this time Follow-up with neurology in 4 to 6 weeks outpatient Clinically improved (10) Paroxysmal atrial flutter: (11) Paroxysmal atrial fibrillation: Plan: Rhythm controlled on amiodarone Has been bradycardic. Metoprolol dose reduced. Monitor Continue anticoagulant with Coumadin INR 1.8 today Was supratherapeutic some days ago and coumadin was held briefly Per Admission med rec, she was on 5mg [id number] and 2.5mg Fr Changed to 2.5mg on MoFr and 5mg other days Monitor (12) Elevated troponin: Plan: Troponin 0.156 mostly due to SHAYNE EKG without acute ST changes, no reports of chest pain Echocardiogram no wall motion abnormalities Stable (13) Skin excoriation: (14) Sacral wound: Plan: Wound care nurse on board Completed the course of antibiotic with doxy (15) History of pulmonary embolism: Plan: -On Coumadin (16) DM type 2 (diabetes mellitus, type 2): Plan: Hgb A1c 6.2 07/2021 On NovoLog sliding scale Continue monitor blood sugar (17) History of breast cancer: Plan: Continue anastrozole (18) Depression: Plan: Continue Lyrica (19) DVT prophylaxis: Plan: On coumadin Monitor Awaiting placement Discontinue tele (20) Discharge planning issues: Admission and Anticipated Discharge Date Admission Date: October 23, 2021 Subjective 81-year-old female with PMH DM type II, LUZ MARIA noncompliant with CPAP, paroxysmal SVT, nonsustained V. tach, paroxysmal atrial fibrillation and flutter on amiodarone and Coumadin chronic diastolic CHF, HTN, aortic stenosis, CKD stage III, history of breast cancer, lymphedema, history of pulmonary embolism on Coumadin, and other problems who presented to the ED for evaluation of generalized weakness Was being managed for SHAYNE on CKD 3 and UTI. Became volume overloaded. Patient seen and examined Denies any chest pain or shortness of breath. Reports occasional cough. Denies nausea, vomiting, diarrhea, abd pain No new complaints Physical Exam Constitutional: + well hydrated and + obese; no acute distress Eyes: PERRL, conjunctivae normal, anicteric sclerae ENMT: external ear and nose normal, oropharynx normal Respiratory: normal respiratory effort, lungs clear to auscultation Cardiovascular: Rate/Rhythm: regular rhythm and + bradycardic S1 S2 Gastrointestinal (Abdomen): normal bowel sounds, soft, nontender, no hepatosplenomegaly Musculoskeletal: leg edema Neurologic: PERRL, EOMI, accommodation nl, no face palsy, no dysarthria Psychiatric: A+Ox3, euthymic affect Results & Data Results & Data ([place]) Vital Signs (Past 12 Hours) Vital Signs Temp Pulse Resp BP Pulse Ox 11/07/21 08:53 55 L 126/70 11/07/21 07:36 37.0 C 56 L 16 116/55 L 92 Laboratory Results Abnormal lab results 11/06/21 11/06/21 11/07/21 Range/Units 16:43 20:38 07:23 PT 17.7 H (9.0-12.0) Seconds INR 1.8 H (0.9-1.1) Potassium (3.5-5.1) mmol/L Carbon Dioxide (21-32) mmol/L BUN (7-18) mg/dl BUN/Creatinine Ratio (10-20) Glucose (70-99) mg/dl POC Glucose 146 H 167 H (70-99) mg/dl 11/07/21 11/07/21 Range/Units 07:23 07:58 PT (9.0-12.0) Seconds INR (0.9-1.1) Potassium 3.4 L (3.5-5.1) mmol/L Carbon Dioxide 38 H (21-32) mmol/L BUN 20 H (7-18) mg/dl BUN/Creatinine Ratio 21.6 H (10-20) Glucose 163 H (70-99) mg/dl POC Glucose 166 H (70-99) mg/dl
[2021-11-07] MEDS: WARFARIN SOD 5 MG TAB PO SCH (16:44)
[2021-11-07] MEDS: ACETAMINOPHEN 325 MG TAB PO PRN (19:24)
[2021-11-08 06:53] LABS: INR 1.6 (0.9-1.1); Prothrombin Time 16.1 Seconds (9.0-12.0)
[2021-11-08 07:10] LABS: BUN Creatinine Ratio 20.6 (10-20); Calcium 8.9 mg/dl (8.5-10.1); Creatinine Clr Calc Pharmacy 58.9 ml/min; Est GFR (African American) 59.2 ml/min; Est GFR (Non-African American) 51.1 ml/min; Potassium 3.5 mmol/L (3.5-5.1)
[2021-11-08] MEDS: METOPROLOL TARTRATE 25 MG TAB PO SCH ×2 (09:11→21:16)
[2021-11-08] MEDS: AMIODARONE 200 MG TAB PO SCH ×2 (09:13→17:03)
[2021-11-08] MEDS: PANTOprazole 40 MG TAB PO SCH (09:14)
[2021-11-08] MEDS: FUROSEMIDE 40 MG TAB PO SCH ×2 (09:14→17:04)
[2021-11-08] MEDS: NYSTATIN POWDER 15GM BTL EXT SCH ×2 (09:15→21:11)
[2021-11-08] MEDS: ANASTROZOLE 1 MG TAB PO SCH (09:15)
[2021-11-08] MEDS: INSULIN ASPART PER UNIT SC SCH ×4 (09:18→21:09)
[2021-11-08] MEDS: PREGABALIN 100 MG CAP PO SCH ×2 (09:18→21:11)
--- NOTE | 2021-11-08 10:40 | Hospitalist Progress Note ---
Date of Service November 08, 2021 Assessment & Plan (1) Acute kidney injury superimposed on CKD: (2) CKD (chronic kidney disease), stage III: Plan: SHAYNE has resolved Became volume overloaded Was on IV Lasix 20 mg 3 times daily now changed to p.o. 40 mg twice daily. Architectural Associate recommend the patient be on this for at least short-term. [facility] need [facility]eval[facility] some Lasix 40 daily at home. (3) UTI (urinary tract infection): Plan: No evidence of sepsis Urine culture grew E coli and Klebsiella She was started on IV Azactam due to penicillin allergy Blood culture no growth Azactam was changed to ceftriaxone Completed the course of antibiotic (4) Chronic diastolic CHF (congestive heart failure): (5) Moderate aortic stenosis: (6) LUZ MARIA (obstructive sleep apnea): (7) Shortness of breath: Plan: Shortness of breath likely multifactorial due to obesity, chronic diastolic CHF, possible pneumonia on CXR History of chronic hypoxia and PCP was trying to arrange for outpatient oxygen supplement CXR showed Bilateral lower lung predominant airspace opacities which may represent atelectasis, pneumonia, and/or aspiration.Bilateral pleural effusions, increased from prior exam. CT chest showed small right and trace left pleural effusions. Extensive atelectasis versus scarring without evidence of pneumonia. ProBNP on admission 7449 Echocardiogram on 10/24 showed EF 60 to 65% %, moderate valvular aortic stenosis Continue to wean oxygen as tolerated Patient also has LUZ MARIA but has not been compliant with CPAP. Bicarb is elevated. This could be due to LUZ MARIA plus or minus diuretic use. She agreed to discuss further with her PCP about trying different masks as the mask was her problem. Needs outpatient sleep study (8) Hyperkalemia: Plan: Potassium increased to 6 He was started on Veltassa by Nephro which has been discontinued as per nephro Continue monitor BMP K is 3.5 today (9) Tremor: Plan: Possible related to medication side effect in the setting of acute renal failure Neurology on board-no plan to start on any treatment at this time Follow-up with neurology in 4 to 6 weeks outpatient Clinically improved (10) Paroxysmal atrial flutter: (11) Paroxysmal atrial fibrillation: Plan: Rhythm controlled on amiodarone Has been bradycardic. Metoprolol dose reduced. Monitor Continue anticoagulant with Coumadin INR 1.6 today Was supratherapeutic some days ago and coumadin was held briefly Per Admission med rec, she was on 5mg SMTWThSa and 2.5mg Fr Changed to 2.5mg on MoFr and 5mg other days Monitor (12) Elevated troponin: Plan: Troponin 0.156 mostly due to SHAYNE EKG without acute ST changes, no reports of chest pain Echocardiogram no wall motion abnormalities Stable (13) Skin excoriation: (14) Sacral wound: Plan: Healing Completed the course of antibiotic with doxy (15) History of pulmonary embolism: Plan: -On Coumadin (16) DM type 2 (diabetes mellitus, type 2): Plan: Hgb A1c 6.2 07/2021 On NovoLog sliding scale Continue monitor blood sugar (17) History of breast cancer: Plan: Continue anastrozole (18) Depression: Plan: Continue Lyrica (19) DVT prophylaxis: Plan: On coumadin Monitor Awaiting placement Discontinue tele (20) Discharge planning issues: Admission and Anticipated Discharge Date Admission Date: October 23, 2021 Subjective 81-year-old female with PMH DM type II, LUZ MARIA noncompliant with CPAP, paroxysmal SVT, nonsustained V. tach, paroxysmal atrial fibrillation and flutter on amiodarone and Coumadin chronic diastolic CHF, HTN, aortic stenosis, CKD stage III, history of breast cancer, lymphedema, history of pulmonary embolism on Coumadin, and other problems who presented to the ED for evaluation of generalized weakness Was being managed for SHAYNE on CKD 3 and UTI. Became volume overloaded. Patient seen and examined Denies any chest pain or shortness of breath. No cough today Denies nausea, vomiting, diarrhea, abd pain Physical Exam Constitutional: + well hydrated and + obese; no acute distress Eyes: PERRL, conjunctivae normal, anicteric sclerae ENMT: external ear and nose normal, oropharynx normal Respiratory: normal respiratory effort, lungs clear to auscultation Cardiovascular: Rate/Rhythm: regular rhythm and + bradycardic S1 S2 Gastrointestinal (Abdomen): normal bowel sounds, soft, nontender, no hepatosplenomegaly Musculoskeletal: Leg edema Neurologic: PERRL, EOMI, accommodation nl, no face palsy, no dysarthria Psychiatric: A+Ox3, euthymic affect Results & Data Results & Data ([facility]) Vital Signs (Past 12 Hours) Vital Signs Temp Pulse Pulse Resp BP Pulse Ox 11/08/21 09:06 56 L 107/56 L 11/08/21 08:05 36.5 C 55 L 16 124/64 95 Laboratory Results Abnormal lab results 11/07/21 11/07/21 11/07/21 Range/Units 12:12 16:56 20:47 PT (9.0-12.0) Seconds INR (0.9-1.1) Carbon Dioxide (21-32) mmol/L BUN (7-18) mg/dl BUN/Creatinine Ratio (10-20) Glucose (70-99) mg/dl POC Glucose 167 H 134 H 170 H (70-99) mg/dl 11/08/21 11/08/21 11/08/21 Range/Units 06:08 06:08 08:00 PT 16.1 H (9.0-12.0) Seconds INR 1.6 H (0.9-1.1) Carbon Dioxide 37 H (21-32) mmol/L BUN 21 H (7-18) mg/dl BUN/Creatinine Ratio 20.6 H (10-20) Glucose 155 H (70-99) mg/dl POC Glucose 166 H (70-99) mg/dl
[2021-11-08] MEDS: WARFARIN SOD 5 MG TAB PO SCH (16:07)
[2021-11-08] MEDS: ACETAMINOPHEN 325 MG TAB PO PRN (17:35)
[2021-11-08] MEDS: DICLOFENAC SOD 1% GEL 100 GM TUBE EXT SCH (21:11)
[2021-11-09] MEDS: AMIODARONE 200 MG TAB PO SCH ×2 (07:31→16:41)
[2021-11-09] MEDS: FUROSEMIDE 40 MG TAB PO SCH ×2 (07:31→16:41)
[2021-11-09] MEDS: PANTOprazole 40 MG TAB PO SCH (07:31)
[2021-11-09] MEDS: ANASTROZOLE 1 MG TAB PO SCH (07:33)
[2021-11-09] MEDS: METOPROLOL TARTRATE 25 MG TAB PO SCH ×2 (07:33→21:06)
[2021-11-09] MEDS: DICLOFENAC SOD 1% GEL 100 GM TUBE EXT SCH ×2 (07:33→21:03)
[2021-11-09] MEDS: NYSTATIN POWDER 15GM BTL EXT SCH ×2 (07:34→21:07)
[2021-11-09] MEDS: PREGABALIN 100 MG CAP PO SCH ×2 (07:39→21:10)
[2021-11-09 08:27] LABS: INR 1.6 (0.9-1.1); Prothrombin Time 15.9 Seconds (9.0-12.0)
[2021-11-09] MEDS: INSULIN ASPART PER UNIT SC SCH ×4 (09:16→21:04)
--- NOTE | 2021-11-09 13:39 | Hospitalist Progress Note ---
Date of Service November 09, 2021 Assessment & Plan (1) Acute kidney injury superimposed on CKD: (2) CKD (chronic kidney disease), stage III: Plan: SHAYNE has resolved. Creatinine peaked at 3.81, has since stabilized to ~ 0.9 Received aggressive IVF resuscitation and then became volume overloaded Was on IV Lasix 20 mg 3 times daily now changed to p.o. 40 mg twice daily. Water Main Pipe Layer recommend the patient be on this for at least short-term. [facility] Noted that patient was taking Lasix 40 mg daily at home prior to being hospitalized. (3) UTI (urinary tract infection): Plan: No evidence of sepsis Urine culture grew E coli and Klebsiella She was started on IV Azactam due to penicillin allergy Blood culture no growth Azactam was changed to ceftriaxone Completed the course of antibiotic (4) Chronic diastolic CHF (congestive heart failure): (5) Moderate aortic stenosis: (6) LUZ MARIA (obstructive sleep apnea): (7) Shortness of breath: Plan: Shortness of breath likely multifactorial due to obesity, chronic diastolic CHF, possible pneumonia on CXR History of chronic hypoxia and PCP was trying to arrange for outpatient oxygen supplement CXR showed Bilateral lower lung predominant airspace opacities which may represent atelectasis, pneumonia, and/or aspiration.Bilateral pleural effusions, increased from prior exam. CT chest showed small right and trace left pleural effusions. Extensive atelectasis versus scarring without evidence of pneumonia. ProBNP on admission 7449 Echocardiogram on 10/24 showed EF 60 to 65%, moderate valvular aortic stenosis Currently saturating well on 2 L of oxygen Patient also has LUZ MARIA but has not been compliant with CPAP. Noted previously to have elevated bicarb. This could be due to LUZ MARIA plus or minus diuretic use. She agreed to discuss further with her PCP about trying different masks as the mask was her problem. Needs outpatient sleep study (8) Hyperkalemia: Plan: Potassium peaked at 6.0 Received Veltassa by Nephro which has since been discontinued as per nephro K+ 3.5 on 11/08 (9) Tremor: Plan: Resolved Possible related to medication side effect in the setting of acute renal failure Neurology consulted-no plan to start on any treatment at this time Follow-up with neurology in 4 to 6 weeks outpatient if tremor persists (10) Paroxysmal atrial flutter: (11) Paroxysmal atrial fibrillation: Plan: Rhythm controlled on amiodarone Due to bradycardia, metoprolol was reduced from 25 mg BID to 12.5 mg BID Heart rate remained stable in the 50s. Patient asymptomatic. Anticoagulated with Coumadin Per Admission med rec, she was on 5mg SMTWThSa and 2.5mg Fr --> was reduced to 2.5mg on MoFr and 5mg other days due to supratherapeutic INR on 11/05 INR 1.6 today (12) Elevated troponin: Plan: Troponin peaked at 0.[address] changes, no reports of chest pain Echocardiogram no wall motion abnormalities Likely due to SHAYNE (13) Skin excoriation: (14) Sacral wound: Plan: Healing Wound care nurse following Completed the course of antibiotic with doxy (15) History of pulmonary embolism: Plan: -On Coumadin (16) DM type 2 (diabetes mellitus, type 2): Plan: Hgb A1c 6.2 07/2021 On NovoLog per protocol. Blood sugars running in the 150s to 170s. Lantus was held on admission, will resume a reduced dose today. Continue monitor blood sugar (17) History of breast cancer: Plan: Continue anastrozole (18) Depression: Plan: Continue Lyrica (19) DVT prophylaxis: Plan: On Coumadin Dispo -medically stable for discharge, awaiting placement Admission and Anticipated Discharge Date Admission Date: October 23, 2021 Supervising Physician Co-Signing Physician Notes Patient seen and examined Agree with findings and plan as detailed by Bee MOORE Subjective 81-year-old female with PMH DM type II, LUZ MARIA noncompliant with CPAP, paroxysmal SVT, nonsustained V. tach, paroxysmal atrial fibrillation and flutter on amiodarone and Coumadin chronic diastolic CHF, HTN, aortic stenosis, CKD stage III, history of breast cancer, lymphedema, history of pulmonary embolism on Coumadin, and other problems who presented to the ED for evaluation of generalized weakness Was being managed for SHAYNE on CKD 3 and UTI. Became volume overloaded. Patient seen and examined. Follow-up for SHAYNE on CKD, UTI, volume overload. Patient resting in bed, offers no complaints. Denies chest pain or shortness of breath. Reports no bowel movement in at least 5 days. Denies abdominal pain or nausea. Review of Systems Review of Systems: ROS per HPI, all other systems reviewed and negative Physical Exam Constitutional: WD/WN, vitals as above + obese Respiratory: normal respiratory effort, lungs clear to auscultation Cardiovascular: Rate/Rhythm: regular rate and regular rhythm Vessels: normal peripheral pulses Extremities: no edema Gastrointestinal (Abdomen): Percussion/Palpation: abdomen soft; abdomen nontender Skin: no rashes, warm and dry Neurologic: no focal motor deficits Psychiatric: A+Ox3, euthymic affect Results & Data Results & Data ([facility]) Vital Signs (Past 12 Hours) Vital Signs Temp Pulse Resp BP Pulse Ox 11/09/21 08:21 36.4 C L 58 L 18 127/63 94
[2021-11-09] MEDS: DOCUSATE SODIUM 100 MG CAP PO SCH ×2 (14:06→21:03)
[2021-11-09] MEDS: POLYETHYLENE (MIRALAX) 17 GM PACK PO SCH (14:06)
[2021-11-09] MEDS: ACETAMINOPHEN 325 MG TAB PO PRN (16:40)
[2021-11-09] MEDS: WARFARIN SOD 2.5 MG TAB PO SCH (16:40)
[2021-11-09] MEDS ORDERED: INSULIN GLARGINE SOLOSTAR 100 UNITS/ML 3 ML PEN SC SCH (21:00)
[2021-11-10 07:54] LABS: INR 1.7 (0.9-1.1); Prothrombin Time 16.7 Seconds (9.0-12.0)
[2021-11-10 08:03] LABS: BUN Creatinine Ratio 21.6 (10-20); Calcium 8.6 mg/dl (8.5-10.1); Creatinine Clr Calc Pharmacy 55.2 ml/min; Est GFR (African American) 57.2 ml/min; Est GFR (Non-African American) 49.3 ml/min; Potassium 3.7 mmol/L (3.5-5.1)
[2021-11-10] MEDS: DOCUSATE SODIUM 100 MG CAP PO SCH ×2 (08:16→20:38)
[2021-11-10] MEDS: METOPROLOL TARTRATE 25 MG TAB PO SCH ×2 (08:16→20:46)
[2021-11-10] MEDS: DICLOFENAC SOD 1% GEL 100 GM TUBE EXT SCH ×2 (08:17→20:37)
[2021-11-10] MEDS: AMIODARONE 200 MG TAB PO SCH ×2 (08:17→16:16)
[2021-11-10] MEDS: PANTOprazole 40 MG TAB PO SCH (08:17)
[2021-11-10] MEDS: FUROSEMIDE 40 MG TAB PO SCH ×2 (08:17→16:16)
[2021-11-10] MEDS: NYSTATIN POWDER 15GM BTL EXT SCH ×2 (08:18→20:38)
[2021-11-10] MEDS: POLYETHYLENE (MIRALAX) 17 GM PACK PO SCH ×2 (08:18→20:39)
[2021-11-10] MEDS: PREGABALIN 100 MG CAP PO SCH ×2 (08:19→20:46)
[2021-11-10] MEDS: INSULIN ASPART PER UNIT SC SCH ×4 (09:02→20:46)
[2021-11-10] MEDS: ANASTROZOLE 1 MG TAB PO SCH (09:03)
--- NOTE | 2021-11-10 14:02 | Hospitalist Progress Note ---
Date of Service November 10, 2021 Assessment & Plan (1) Acute kidney injury superimposed on CKD: (2) CKD (chronic kidney disease), stage III: Plan: SHAYNE has resolved. Creatinine peaked at 3.81, has since stabilized to ~ 0.9 Received aggressive IVF resuscitation and then became volume overloaded Was on IV Lasix 20 mg 3 times daily now changed to p.o. 40 mg twice daily. Online Editor recommend the patient be on this for at least short-term. [facility] Noted that patient was taking Lasix 40 mg daily at home prior to being hospitalized. Currently appears euvolemic (3) UTI (urinary tract infection): Plan: No evidence of sepsis Urine culture grew E coli and Klebsiella She was started on IV Azactam due to penicillin allergy Blood culture no growth Azactam was changed to ceftriaxone Completed the course of antibiotic (4) Chronic diastolic CHF (congestive heart failure): (5) Moderate aortic stenosis: (6) LUZ MARIA (obstructive sleep apnea): (7) Shortness of breath: Plan: Shortness of breath likely multifactorial due to obesity, chronic diastolic CHF, possible pneumonia on CXR History of chronic hypoxia and PCP was trying to arrange for outpatient oxygen supplement CXR showed Bilateral lower lung predominant airspace opacities which may represent atelectasis, pneumonia, and/or aspiration.Bilateral pleural effusions, increased from prior exam. CT chest showed small right and trace left pleural effusions. Extensive atelectasis versus scarring without evidence of pneumonia. ProBNP on admission 7449 Echocardiogram on 10/24 showed EF 60 to 65%, moderate valvular aortic stenosis Currently saturating well on 2 L of oxygen Patient also has LUZ MARIA but has not been compliant with CPAP. Noted previously to have elevated bicarb. This could be due to LUZ MARIA plus or minus diuretic use. She agreed to discuss further with her PCP about trying different masks as the mask was her problem. Needs outpatient sleep study (8) Hyperkalemia: Plan: Potassium peaked at 6.0 Received Veltassa by Nephro which has since been discontinued as per nephro K+ 3.7 on 11/10 (9) Tremor: Plan: Resolved Possible related to medication side effect in the setting of acute renal failure Neurology consulted-no plan to start on any treatment at this time Follow-up with neurology in 4 to 6 weeks outpatient if tremor persists (10) Paroxysmal atrial flutter: (11) Paroxysmal atrial fibrillation: Plan: Rhythm controlled on amiodarone Due to bradycardia, metoprolol was reduced from 25 mg BID to 12.5 mg BID Heart rate remained stable in the 50s. Patient asymptomatic. Anticoagulated with Coumadin Per Admission med rec, she was on 5mg SMTWThSa and 2.5mg Fr --> was reduced to 2.5mg on MoFr and 5mg other days due to supratherapeutic INR on 11/05 INR 1.7 today. Will give Coumadin 7.5 mg today and then continue with current regimen. (12) Elevated troponin: Plan: Troponin peaked at 0.[address] changes, no reports of chest pain Echocardiogram no wall motion abnormalities Likely due to SHAYNE (13) Skin excoriation: (14) Sacral wound: Plan: Healing Wound care nurse following Completed the course of antibiotic with doxy (15) History of pulmonary embolism: Plan: On Coumadin (16) DM type 2 (diabetes mellitus, type 2): Plan: Hgb A1c 6.2 07/2021 On NovoLog per protocol. Blood sugars running in the 150s to 170s. Lantus was held on admission, 10 units resumed on 11/09. Blood sugars remain mildly elevated, will increase to 20 units at bedtime. Continue monitor blood sugar (17) History of breast cancer: Plan: Continue anastrozole (18) Depression: Plan: Continue Lyrica (19) DVT prophylaxis: Plan: On Coumadin Dispo -medically stable for discharge, awaiting placement Admission and Anticipated Discharge Date Admission Date: October 23, 2021 Supervising Physician Co-Signing Physician Notes Patient seen and examined Agree with plans as detailed by Bee MOORE Subjective 81-year-old female with PMH DM type II, LUZ MARIA noncompliant with CPAP, paroxysmal SVT, nonsustained V. tach, paroxysmal atrial fibrillation and flutter on amiodarone and Coumadin chronic diastolic CHF, HTN, aortic stenosis, CKD stage III, history of breast cancer, lymphedema, history of pulmonary embolism on Coumadin, and other problems who presented to the ED for evaluation of generalized weakness Was being managed for SHAYNE on CKD 3 and UTI. Became volume overloaded. Patient seen and examined. Follow-up for SHAYNE on CKD, UTI, volume overload. Sitting up in the chair. Reports ongoing constipation. No abdominal pain or nausea. Denies chest pain or shortness of breath. Review of Systems Review of Systems: ROS per HPI, all other systems reviewed and negative Physical Exam Constitutional: + obese; no acute distress Respiratory: normal respiratory effort, lungs clear to auscultation Cardiovascular: Rate/Rhythm: regular rate and regular rhythm Extremities: + edema (+2 edema BLE) Gastrointestinal (Abdomen): Percussion/Palpation: abdomen soft; abdomen nontender Skin: no rashes, warm and dry Neurologic: no focal motor deficits Psychiatric: A+Ox3, euthymic affect Results & Data Results & Data ([facility]) Vital Signs (Past 12 Hours) Vital Signs Temp Pulse Resp BP Pulse Ox 11/10/21 07:18 36.5 C 50 L 18 120/61 93 Laboratory Results [facility] 11/10/21 06:55 Sodium 141 Potassium 3.7 Chloride 100 Carbon Dioxide 36 H BUN 23 H Creatinine 1.07 Glucose 169 H Calcium 8.6
[2021-11-10] MEDS ORDERED: WARFARIN SOD 7.5 MG TAB PO SCH (16:00)
[2021-11-10] MEDS: INSULIN GLARGINE SOLOSTAR 100 UNITS/ML 3 ML PEN SC SCH (20:41)
[2021-11-10] MEDS: ACETAMINOPHEN 325 MG TAB PO PRN (21:33)
[2021-11-11 07:49] LABS: INR 1.9 (0.9-1.1); Prothrombin Time 18.6 Seconds (9.0-12.0)
[2021-11-11] MEDS: DICLOFENAC SOD 1% GEL 100 GM TUBE EXT SCH ×2 (08:28→20:25)
[2021-11-11] MEDS: SIMETHICONE 80 MG CHEW PO PRN (08:30)
[2021-11-11] MEDS: DOCUSATE SODIUM 100 MG CAP PO SCH ×2 (08:30→20:26)
[2021-11-11] MEDS: PANTOprazole 40 MG TAB PO SCH (08:30)
[2021-11-11] MEDS: POLYETHYLENE (MIRALAX) 17 GM PACK PO SCH ×2 (08:30→20:26)
[2021-11-11] MEDS: FUROSEMIDE 40 MG TAB PO SCH ×2 (08:36→16:02)
[2021-11-11] MEDS: AMIODARONE 200 MG TAB PO SCH ×2 (08:36→16:03)
[2021-11-11] MEDS: METOPROLOL TARTRATE 25 MG TAB PO SCH ×2 (08:36→20:31)
[2021-11-11] MEDS: NYSTATIN POWDER 15GM BTL EXT SCH ×2 (08:37→20:26)
[2021-11-11] MEDS: PREGABALIN 100 MG CAP PO SCH ×2 (08:39→20:28)
[2021-11-11] MEDS: ANASTROZOLE 1 MG TAB PO SCH (09:08)
[2021-11-11] MEDS: INSULIN ASPART PER UNIT SC SCH ×4 (09:13→20:44)
[2021-11-11] MEDS: WARFARIN SOD 5 MG TAB PO SCH (16:03)
[2021-11-11] MEDS: ACETAMINOPHEN 325 MG TAB PO PRN (18:02)
[2021-11-11] MEDS: INSULIN GLARGINE SOLOSTAR 100 UNITS/ML 3 ML PEN SC SCH (20:45)
--- NOTE | 2021-11-11 21:15 | Hospitalist Progress Note ---
Date of Service November 11, 2021 Assessment & Plan (1) UTI (urinary tract infection): Plan: (1) Acute kidney injury superimposed on CKD: (2) CKD (chronic kidney disease), stage III: Plan: SHAYNE has resolved. Creatinine peaked at 3.81. Received aggressive IVF resuscitation and then became volume overloaded Was on IV Lasix 20 mg 3 times daily now changed to p.o. 40 mg twice daily. Restaurant Maintenance Technician recommend the patient be on this for at least short-term. [facility] need [facility]. Noted that patient was taking Lasix 40 mg daily at home prior to being hospitalized. Currently appears euvolemic (3) UTI (urinary tract infection): Plan: No evidence of sepsis Urine culture grew E coli and Klebsiella She was started on IV Azactam due to penicillin allergy Blood culture no growth Azactam was changed to ceftriaxone Completed the course of antibiotic (4) Chronic diastolic CHF (congestive heart failure): (5) Moderate aortic stenosis: (6) LUZ MARIA (obstructive sleep apnea): (7) Shortness of breath: Plan: Shortness of breath likely multifactorial due to obesity, chronic diastolic CHF, possible pneumonia on CXR History of chronic hypoxia and PCP was trying to arrange for outpatient oxygen supplement CXR showedBilateral lower lung predominant airspace opacities which may represent atelectasis, pneumonia, and/or aspiration.Bilateral pleural effusions, increased from prior exam. CT chest showed small right and trace left pleural effusions. Extensive atelectasis versus scarring without evidence of pneumonia. ProBNP on admission 7449 Echocardiogram on 10/24 showed EF 60 to 65%, moderate valvular aortic stenosis Currently saturating well on 2 L of oxygen Patient also has LUZ MARIA but has not been compliant with CPAP. Noted previously to have elevated bicarb. This could be due to LUZ MARIA plus or minus diuretic use. She agreed to discuss further with her PCP about trying different masks as the mask was her problem. Needs outpatient sleep study (8) Hyperkalemia: Plan: Potassium peaked at 6.0 Received Veltassa by Nephro which has since been discontinued as per nephro K+ 3.7 on 11/10 (9) Tremor: Plan: 8 tremor noted at examination, action tremor of bilateral extremities noted. Possible related to medication side effect in the setting of acute renal failure Neurology consulted-no plan to start on any treatment at this time Follow-up with neurology in 4 to 6 weeks outpatient if tremor persists (10) Paroxysmal atrial flutter: (11) Paroxysmal atrial fibrillation: Plan: Rhythm controlled on amiodarone Due to bradycardia, metoprolol was reduced from 25 mg BID to 12.5 mg BID Heart rate remained stable in the 50s. Patient asymptomatic. Anticoagulated with Coumadin Per Admission med rec, she was on 5mg SMTWThSa and 2.5mg Fr --> was reduced to 2.5mg on MoFr and 5mg other days due to supratherapeutic INR on 11/05 INR 1.9 today. Continue with home regimen. (12) Elevated troponin: Plan: Troponin peaked at 0.[address] changes, no reports of chest pain Echocardiogram no wall motion abnormalities Likely due to SHAYNE (13) Skin excoriation: (14) Sacral wound: Plan: Healing Wound care nurse following Completed the course of antibiotic with doxy (15) History of pulmonary embolism: Plan: On Coumadin (16) DM type 2 (diabetes mellitus, type 2): Plan: Hgb A1c 6.2 07/2021 On NovoLog per protocol. Blood sugars running in the 150s to 170s. Lantus was held on admission, 10 units resumed on 11/09. Blood sugars remain mildly elevated, will increase to 20 units at bedtime. Continue monitor blood sugar (17) History of breast cancer: Plan: Continue anastrozole (18) Depression: Plan: Continue Lyrica (19) DVT prophylaxis: Plan: On Coumadin Dispo -medically stable for discharge, awaiting placement likely Tuesday to [facility]. Admission and Anticipated Discharge Date Admission Date: October 23, 2021 Subjective Patient was lying in bed, on 2 L nasal cannula oxygen, no new acute events overnight. Patient reports eating okay but no bowel movement since last 6-day. We will add bowel regimen. Patient has resting tremor of her head and action tremor of her extremities at bedside exam. Patient reports feeling weak and chronic low back pain at baseline, denies fever/chills/headache/chest pain/palpitation/other review of symptoms. Overall patient reports feeling better. Physical Exam Physical Exam: GENERAL: Alert and oriented x3. NAD, on 2L HEENT: No pallor, no icterus. Pupils equal, round and reactive to light. Oral mucosa moist. NECK: No JVD, no neck masses. HEART: S1 and S2 heard. Regular rate and rhythm. Systolic murmur over aortic and pulmonic area,, no gallop. RESPIRATORY SYSTEM: Normal AP diameter. No accessory muscle use. No wheezing, no crackles. ABDOMEN: Soft, bowel sounds present, nontender, no distention. CENTRAL NERVOUS SYSTEM: No facial droop. Speech is clear. Obeys simple commands. Moves extremities. EXTREMITIES: No edema, no erythema seen. Results & Data Results & Data ([facility]) Vital Signs (Past 12 Hours) Vital Signs Temp Pulse Resp BP Pulse Ox 11/11/21 20:25 36.7 C 54 L 14 145/66 H 97 11/11/21 15:21 37 C 55 L 18 132/66 94
[2021-11-12 06:49] LABS: Prothrombin Time 19.5 Seconds (9.0-12.0)
[2021-11-12 07:06] LABS: BUN Creatinine Ratio 27.5 (10-20); Calcium 8.5 mg/dl (8.5-10.1); Creatinine Clr Calc Pharmacy 61.2 ml/min; Est GFR (African American) 63.6 ml/min; Est GFR (Non-African American) 54.9 ml/min
[2021-11-12] MEDS: METOPROLOL TARTRATE 25 MG TAB PO SCH ×2 (08:35→21:48)
[2021-11-12] MEDS: NYSTATIN POWDER 15GM BTL EXT SCH ×2 (09:00→21:39)
[2021-11-12] MEDS: ANASTROZOLE 1 MG TAB PO SCH (09:00)
[2021-11-12] MEDS: AMIODARONE 200 MG TAB PO SCH ×2 (09:00→16:09)
[2021-11-12] MEDS: FUROSEMIDE 40 MG TAB PO SCH ×2 (09:00→16:09)
[2021-11-12] MEDS: PANTOprazole 40 MG TAB PO SCH (09:00)
[2021-11-12] MEDS: POLYETHYLENE (MIRALAX) 17 GM PACK PO SCH ×2 (09:01→21:40)
[2021-11-12] MEDS: DICLOFENAC SOD 1% GEL 100 GM TUBE EXT SCH ×2 (09:01→21:38)
[2021-11-12] MEDS: DOCUSATE SODIUM 100 MG CAP PO SCH ×2 (09:01→21:38)
[2021-11-12] MEDS: PREGABALIN 100 MG CAP PO SCH ×2 (09:05→21:50)
[2021-11-12] MEDS: INSULIN ASPART PER UNIT SC SCH ×4 (09:05→21:45)
--- NOTE | 2021-11-12 09:45 | Hospitalist Progress Note ---
Date of Service November 12, 2021 Assessment & Plan (1) UTI (urinary tract infection): Plan: (1) Acute kidney injury superimposed on CKD: (2) CKD (chronic kidney disease), stage III: Plan: SHAYNE has resolved. Creatinine peaked at 3.81. Received aggressive IVF resuscitation and then became volume overloaded Was on IV Lasix 20 mg 3 times daily now changed to p.o. 40 mg twice daily. Dry Chain Puller recommend the patient be on this for at least short-term. Will need reevaluation at the long-term facility. Noted that patient was taking Lasix 40 mg daily at home prior to being hospitalized. Currently appears euvolemic (3) UTI (urinary tract infection): Plan: No evidence of sepsis Urine culture grew E coli and Klebsiella She was started on IV Azactam due to penicillin allergy Blood culture no growth Azactam was changed to ceftriaxone Completed the course of antibiotic (4) Chronic diastolic CHF (congestive heart failure): (5) Moderate aortic stenosis: (6) LUZ MARIA (obstructive sleep apnea): (7) Shortness of breath: Plan: Shortness of breath likely multifactorial due to obesity, chronic diastolic CHF, possible pneumonia on CXR History of chronic hypoxia and PCP was trying to arrange for outpatient oxygen supplement CXR showedBilateral lower lung predominant airspace opacities which may represent atelectasis, pneumonia, and/or aspiration.Bilateral pleural effusions, increased from prior exam. CT chest showed small right and trace left pleural effusions. Extensive atelectasis versus scarring without evidence of pneumonia. ProBNP on admission 7449 Echocardiogram on 10/24 showed EF 60 to 65%, moderate valvular aortic stenosis Currently saturating well on 2 L of oxygen Patient also has LUZ MARIA but has not been compliant with CPAP. Noted previously to have elevated bicarb. This could be due to LUZ MARIA plus or minus diuretic use. She agreed to discuss further with her PCP about trying different masks as the mask was her problem. Needs outpatient sleep study Will require 2 step prior to discharge since requiring 2L NC O2 during the day (8) Hyperkalemia: Plan: Potassium peaked at 6.0 Received Veltassa by Nephro which has since been discontinued as per nephro K+ 3.7 on 11/10 (9) Tremor: Plan: 8 tremor noted at examination, action tremor of bilateral extremities noted. Possible related to medication side effect in the setting of acute renal failure Neurology consulted-no plan to start on any treatment at this time Follow-up with neurology in 4 to 6 weeks outpatient if tremor persists (10) Paroxysmal atrial flutter: (11) Paroxysmal atrial fibrillation: Plan: Rhythm controlled on amiodarone Due to bradycardia, metoprolol was reduced from 25 mg BID to 12.5 mg BID Heart rate remained stable in the 50s. Patient asymptomatic. Anticoagulated with Coumadin Per Admission med rec, she was on 5mg SMTWThSa and 2.5mg Fr --> was reduced to 2.5mg on MoFr and 5mg other days due to supratherapeutic INR on 11/05 INR 1.2 today. Continue with home regimen. (12) Elevated troponin: Plan: Troponin peaked at 0.[address] changes, no reports of chest pain Echocardiogram no wall motion abnormalities Likely due to SHAYNE (13) Skin excoriation: (14) Sacral wound: Plan: Healing Wound care nurse following Completed the course of antibiotic with doxy (15) History of pulmonary embolism: Plan: On Coumadin (16) DM type 2 (diabetes mellitus, type 2): Plan: Hgb A1c 6.2 07/2021 On NovoLog per protocol. Blood sugars running in the 150s to 170s. Lantus was held on admission, 10 units resumed on 11/09. Blood sugars remain mildly elevated, will increase to 20 units at bedtime. Continue monitor blood sugar (17) History of breast cancer: Plan: Continue anastrozole (18) Depression: Plan: Continue Lyrica (19) DVT prophylaxis: Plan: On Coumadin Dispo -medically stable for discharge, awaiting placement likely Tuesday to [facility] per CM. Admission and Anticipated Discharge Date Admission Date: October 23, 2021 Supervising Physician Co-Signing Physician Notes 81-year-old female with history of tremor, CKD, CHF, paroxysmal A. fib and multiple other comorbidities is being managed for SHAYNE on CKD and UTI along with her chronic medical problems. Patient has on and off ongoing tremor which seems to be bothering her much. She will need neurology follow-up as an outpatient. Stable to go awaiting placement. Upon examination, patient was lying in bed, on 2 L nasal cannula oxygen, head tremor has improved today compared to yesterday along with her bilateral upper extremity tremors. Other examination as above. I have seen and examined the patient and have discussed the case with the provider above. I agree with the assessment and plan as stated. Subjective Patient was lying in bed, on 2 L nasal cannula oxygen, no new acute events overnight. Patient reports she is eating well. Bowel regimen added yesterday and had small bowel movement last night. Patient has resting tremor of her head and action tremor of her extremities at bedside exam. Patient reports fe eling weak and chronic low back pain at baseline, but no chanced. Denies fever/chills/headache/chest pain/palpitation/other review of symptoms. Overall patient reports feeling better. Review of Systems Review of Systems: ROS per HPI, all other systems reviewed and negative Physical Exam Physical Exam: GENERAL: Alert and oriented x3. NAD, on 2L NC O2 HEENT: No pallor, no icterus. Pupils equal, round and reactive to light. Oral mucosa moist. NECK: No JVD, no neck masses. HEART: S1 and S2 heard. Regular rate and rhythm. +Systolic murmur, no gallop. RESPIRATORY SYSTEM: Normal AP diameter. No accessory muscle use. No wheezing, no crackles. ABDOMEN: Soft, bowel sounds present, nontender, no distention. CENTRAL NERVOUS SYSTEM: No facial droop. Speech is clear. Obeys simple commands. Moves extremities. EXTREMITIES: No edema, no erythema seen. Results & Data Results & Data ([facility]) Vital Signs (Past 12 Hours) Vital Signs Temp Pulse Resp BP Pulse Ox 11/12/21 07:05 36.5 C 49 L 16 127/67 96 Laboratory Results [facility] 11/12/21 06:18 Sodium 141 Potassium 4.0 Chloride 102 Carbon Dioxide 36 H BUN 27 H Creatinine 0.98 Glucose 133 H Calcium 8.5 Diagnostic Findings Chest X-Ray 10/23/21 13:27 XR chest 1V portable HISTORY: 81 years-old Female Chest Pain . Acute atypical chest pain COMPARISON: 11/28/2020 TECHNIQUE: Portable AP view of the chest FINDINGS: Cardiac silhouette is enlarged. Trace left and small right pleural effusions. Pulmonary vascular congestion with mild right lung base consolidation. Linear left midlung opacities suggest atelectasis versus scarring. There is no pneumothorax. Degenerative changes of the shoulders and spine. IMPRESSION: 1. Cardiomegaly with pulmonary vascular congestion and right greater than left pleural effusions. 2. Right basilar consolidation suggests atelectasis versus pneumonia. ACT 112: Negative or not required by law. The above report was generated using voice recognition software. It may contain grammatical, syntax or spelling errors. Electronically signed by: Jose Miguel M.D. 10/23/2021 1:54 PM Renal Ultrasound 10/23/21 17:06 US renal/blad retro comp HISTORY: 81 years-old Female SHAYNE acute kidney injury COMPARISON: CT abdomen and pelvis 11/21/2020 TECHNIQUE: Multiple real-time sonographic images of the kidneys and urinary bladder were obtained assessing grayscale appearance and color flow FINDINGS: Right kidney measures 13.6 cm in length and demonstrates no renal calculi, hydronephrosis or suspicious mass lesion. Mild cortical thinning. The left kidney measures 13.7 cm in length and demonstrates no renal calculi, hydronephrosis or suspicious mass lesion. Mild cortical thinning. Decompressed urinary bladder with Villarreal catheter. Limited study secondary to patient body habitus and lack of cooperation throughout the study. IMPRESSION: 1. No renal calculi or hydronephrosis. 2. Decompressed urinary bladder with Villarreal catheter. ACT 112: Negative or not required by law. The above report was generated using voice recognition software. It may contain grammatical, syntax or spelling errors. Electronically signed by: Jose Miguel M.D. 10/23/2021 7:[address] 10/24/21 08:59 CT chest diagnostic wo con CLINICAL HISTORY: effusion vs. pneumonia TECHNIQUE: Multidetector row helical CT of the chest was performed. Coronal and sagittal reformations were obtained. Automated dose lowering techniques and/or adjustment according to patient size were utilized for this exam. Comparison: Comparison is made to CT chest 11/21/2020 FINDINGS: Lungs and pleura: There is a small right and trace left pleural effusion with underlying atelectasis. Scattered linear opacities are seen compatible with atelectasis versus scarring throughout the lungs. No evidence of consolidation to suggest pneumonia. Mosaic attenuation is noted and there is vascular prominence. Heart and pericardium: There is cardiomegaly without evidence of pericardial effusion. Vessels: Severe atherosclerotic changes in the aorta and coronary arteries. Mediastinum and payam: Subcentimeter lymph nodes are seen. Chest wall and lower neck: Pulmonary trunk measures 34 mm in diameter. The ascending aorta measures up to 44 mm in diameter. Abdomen: Partial visualization of a splenic cyst. Bones: Degenerative changes in the thoracic spine. IMPRESSION: 1. Small right and trace left pleural effusions. Extensive atelectasis versus scarring without evidence of pneumonia. 2. Cardiomegaly and pulmonary hypertension. 3. Ascending aortic aneurysm, comparable in size to prior exam. ACT 112: Negative or not required by law. Electronically signed by: David Gilbert M.D. 10/24/2021 11:08 AM Hip X-Ray 10/24/21 14:44 XR hip LT min 2V CLINICAL HISTORY: Left pain. COMPARISON STUDY: No previous studies for comparison. TECHNIQUE: 2 left hip views FINDINGS: Bones: There is no evidence for an acute fracture or dislocation. There is no lytic or blastic lesion. Joints: The joint spaces are maintained. The bones are in anatomic alignment. Soft tissues: There is no focal soft tissue abnormality. There is no radiopaque foreign body. IMPRESSION: No acute osseous pathology. ACT 112: Negative or not required by law. Electronically signed by: Howard Tony M.D. 10/24/2021 3:36 PM Chest X-Ray 10/26/21 09:11 SINGLE VIEW CHEST CLINICAL HISTORY: Hypoxia. FINDINGS: 2 AP, portable, upright chest radiographs are compared to study dated 10/23/2021 and correlated with chest CT dated 10/24/2021. The examination is degraded by portable technique, large body habitus, and patient rotation. The heart is markedly enlarged. There is pulmonary vascular congestion. There are right larger than left pleural effusions with bibasilar consolidation. Foci of scarring/atelectasis are seen throughout both lungs. No pneumothorax is seen. The skeletal structures are osteopenic. The bony thorax is grossly intact. IMPRESSION: 1. Cardiomegaly with evidence of congestive failure. This is similar to the 10/23/2021 examination. 2. Right larger than left pleural effusions with bibasilar consolidation. ACT 112: Negative or not required by law. Electronically signed by: Martinez Cuadra M.D. 10/26/2021 10:14 AM Chest X-Ray 10/27/21 07:38 XR chest 1V portable CLINICAL HISTORY: hypoxia, r/o pulmonary edema TECHNIQUE: Single frontal radiograph of the chest was obtained. Comparison: Comparison is made to chest one view 10/26/2021 FINDINGS: No lines and tubes are seen. Cardiomegaly is noted. Bilateral lower lung predominant airspace opacities are seen. Likely bilateral pleural effusions are seen. IMPRESSION: 1. Bilateral lower lung predominant airspace opacities which may represent atelectasis, pneumonia, and/or aspiration. 2. Bilateral pleural effusions, increased from prior exam. ACT 112: Negative or not required by law. Electronically signed by: David Gilbert M.D. 10/27/2021 8:51 AM
[2021-11-12] MEDS: WARFARIN SOD 5 MG TAB PO SCH (16:09)
[2021-11-12] MEDS: INSULIN GLARGINE SOLOSTAR 100 UNITS/ML 3 ML PEN SC SCH (21:40)
[2021-11-13 07:45] LABS: INR 2.2 (0.9-1.1); Prothrombin Time 20.8 Seconds (9.0-12.0)
[2021-11-13] MEDS: ANASTROZOLE 1 MG TAB PO SCH (07:49)
[2021-11-13] MEDS: AMIODARONE 200 MG TAB PO SCH ×2 (07:49→16:31)
[2021-11-13] MEDS: PANTOprazole 40 MG TAB PO SCH (07:49)
[2021-11-13] MEDS: FUROSEMIDE 40 MG TAB PO SCH ×2 (07:50→16:32)
[2021-11-13] MEDS: METOPROLOL TARTRATE 25 MG TAB PO SCH ×2 (07:50→20:55)
[2021-11-13] MEDS: DOCUSATE SODIUM 100 MG CAP PO SCH ×2 (07:50→20:54)
[2021-11-13] MEDS: POLYETHYLENE (MIRALAX) 17 GM PACK PO SCH ×2 (07:51→20:56)
[2021-11-13] MEDS: PREGABALIN 100 MG CAP PO SCH ×2 (07:54→20:56)
[2021-11-13] MEDS: INSULIN ASPART PER UNIT SC SCH ×4 (08:50→20:54)
[2021-11-13] MEDS: DICLOFENAC SOD 1% GEL 100 GM TUBE EXT SCH ×2 (08:54→20:53)
[2021-11-13] MEDS: NYSTATIN POWDER 15GM BTL EXT SCH ×2 (08:54→20:55)
--- NOTE | 2021-11-13 16:27 | Hospitalist Progress Note ---
Date of Service November 13, 2021 Assessment & Plan (1) UTI (urinary tract infection): Plan: (1) Acute kidney injury superimposed on CKD: (2) CKD (chronic kidney disease), stage III: Plan: SHAYNE has resolved. Creatinine peaked at 3.81. Received aggressive IVF resuscitation and then became volume overloaded Was on IV Lasix 20 mg 3 times daily now changed to p.o. 40 mg twice daily. Shop Technician recommend the patient be on this for at least short-term. Will need reevaluation at the care home facility. Noted that patient was taking Lasix 40 mg daily at home prior to being hospitalized. Currently appears euvolemic (3) UTI (urinary tract infection): Plan: No evidence of sepsis Urine culture grew E coli and Klebsiella She was started on IV Azactam due to penicillin allergy Blood culture no growth Azactam was changed to ceftriaxone Completed the course of antibiotic (4) Chronic diastolic CHF (congestive heart failure): (5) Moderate aortic stenosis: (6) LUZ MARIA (obstructive sleep apnea): (7) Shortness of breath: Plan: Shortness of breath likely multifactorial due to obesity, chronic diastolic CHF, possible pneumonia on CXR History of chronic hypoxia and PCP was trying to arrange for outpatient oxygen supplement CXR showedBilateral lower lung predominant airspace opacities which may represent atelectasis, pneumonia, and/or aspiration.Bilateral pleural effusions, increased from prior exam. CT chest showed small right and trace left pleural effusions. Extensive atelectasis versus scarring without evidence of pneumonia. ProBNP on admission 7449 Echocardiogram on 10/24 showed EF 60 to 65%, moderate valvular aortic stenosis Currently saturating well on 2 L of oxygen Patient also has LUZ MARIA but has not been compliant with CPAP. Noted previously to have elevated bicarb. This could be due to LUZ MARIA plus or minus diuretic use. She agreed to discuss further with her PCP about trying different masks as the mask was her problem. Needs outpatient sleep study Will require 2 step prior to discharge since requiring 2L NC O2 during the day (8) Hyperkalemia: Plan: Potassium peaked at 6.0 Received Veltassa by Nephro which has since been discontinued as per nephro K+ 3.7 on 11/10 (9) Tremor: Plan: 8 tremor noted at examination, action tremor of bilateral extremities noted. Possible related to medication side effect in the setting of acute renal failure Neurology consulted-no plan to start on any treatment at this time Follow-up with neurology in 4 to 6 weeks outpatient if tremor persists (10) Paroxysmal atrial flutter: (11) Paroxysmal atrial fibrillation: Plan: Rhythm controlled on amiodarone Due to bradycardia, metoprolol was reduced from 25 mg BID to 12.5 mg BID Heart rate remained stable in the 50s. Patient asymptomatic. Anticoagulated with Coumadin Per Admission med rec, she was on 5mg SMTWThSa and 2.5mg Fr --> was reduced to 2.5mg on MoFr and 5mg other days due to supratherapeutic INR on 11/05 INR 1.2 today. Continue with home regimen. (12) Elevated troponin: Plan: Troponin peaked at 0.[address] changes, no reports of chest pain Echocardiogram no wall motion abnormalities Likely due to SHAYNE (13) Skin excoriation: (14) Sacral wound: Plan: Healing Wound care nurse following Completed the course of antibiotic with doxy (15) History of pulmonary embolism: Plan: On Coumadin (16) DM type 2 (diabetes mellitus, type 2): Plan: Hgb A1c 6.2 07/2021 On NovoLog per protocol. Blood sugars running in the 150s to 170s. Lantus was held on admission, 10 units resumed on 11/09. Blood sugars remain mildly elevated, will increase to 20 units at bedtime. Continue monitor blood sugar (17) History of breast cancer: Plan: Continue anastrozole (18) Depression: Plan: Continue Lyrica (19) DVT prophylaxis: Plan: On Coumadin Dispo -medically stable for discharge, awaiting placement likely Tuesday to [facility] per CM - likely over the weekend. Admission and Anticipated Discharge Date Admission Date: October 23, 2021 Supervising Physician Co-Signing Physician Notes 81-year-old female with history of tremor, CKD, CHF, paroxysmal A. fib and multiple other comorbidities is being managed for SHAYNE on CKD and UTI along with her chronic medical problems. Patient has on and off ongoing tremor which seems to be bothering her much. She will need neurology follow-up as an outpatient. Stable to go awaiting placement. Upon examination, patient was lying in bed, on 2 L nasal cannula oxygen, head tremor noted at bedside exam along with her bilateral upper extremity tremors. Other examination as above. I have seen and examined the patient and have discussed the case with the provider above. I agree with the assessment and plan as stated. Subjective Patient seen and examined in 476-1. Patient reports she is feeling well. Tolerating diet without issue, has bowel regimen in place. Participating with therapy and feeling like she is moving better. Chronic low back pain at baseline. Denies fever/chills/headache/chest pain/palpitation/other review of symptoms. Overall patient reports feeling better. Awaiting placement to [facility], likely over the weekend. Review of Systems Review of Systems: ROS per HPI, all other systems reviewed and negative Physical Exam Physical Exam: GENERAL: Alert and oriented x3. NAD, on 2L NC O2 HEENT: No pallor, no icterus. Pupils equal, round and reactive to light. Oral mucosa moist. NECK: No JVD, no neck masses. HEART: S1 and S2 heard. Regular rate and rhythm. +Systolic murmur, no gallop. RESPIRATORY SYSTEM: Normal AP diameter. No accessory muscle use. No wheezing, no crackles. ABDOMEN: Soft, bowel sounds present, nontender, no distention. CENTRAL NERVOUS SYSTEM: No facial droop. Speech is clear. Obeys simple commands. Moves extremities. EXTREMITIES: No edema, no erythema seen. Results & Data Results & Data ([facility]) Vital Signs (Past 12 Hours) Vital Signs Temp Pulse Resp BP Pulse Ox 11/13/21 15:00 36.4 C L 58 L 20 129/82 96 11/13/21 07:26 36.4 C L 53 L 20 127/67 94
[2021-11-13] MEDS: WARFARIN SOD 2.5 MG TAB PO SCH (16:31)
[2021-11-13] MEDS: INSULIN GLARGINE SOLOSTAR 100 UNITS/ML 3 ML PEN SC SCH (20:54)
[2021-11-13] MEDS: ACETAMINOPHEN 325 MG TAB PO PRN (20:57)
[2021-11-14] MEDS: AMIODARONE 200 MG TAB PO SCH ×2 (09:23→17:37)
[2021-11-14] MEDS: PANTOprazole 40 MG TAB PO SCH (09:23)
[2021-11-14] MEDS: ANASTROZOLE 1 MG TAB PO SCH (09:23)
[2021-11-14] MEDS: METOPROLOL TARTRATE 25 MG TAB PO SCH ×2 (09:23→20:42)
[2021-11-14] MEDS: FUROSEMIDE 40 MG TAB PO SCH ×2 (09:24→17:37)
[2021-11-14] MEDS: DICLOFENAC SOD 1% GEL 100 GM TUBE EXT SCH ×2 (09:24→20:40)
[2021-11-14] MEDS: DOCUSATE SODIUM 100 MG CAP PO SCH ×2 (09:24→20:40)
[2021-11-14] MEDS: POLYETHYLENE (MIRALAX) 17 GM PACK PO SCH ×2 (09:24→20:42)
[2021-11-14] MEDS: NYSTATIN POWDER 15GM BTL EXT SCH ×2 (09:25→20:42)
[2021-11-14] MEDS: INSULIN ASPART PER UNIT SC SCH ×4 (09:25→20:41)
[2021-11-14] MEDS: PREGABALIN 100 MG CAP PO SCH ×2 (09:30→20:49)
--- NOTE | 2021-11-14 14:00 | Hospitalist Progress Note ---
Date of Service November 14, 2021 Assessment & Plan (1) UTI (urinary tract infection): Plan: (1) Acute kidney injury superimposed on CKD: (2) CKD (chronic kidney disease), stage III: Plan: SHAYNE has resolved. Creatinine peaked at 3.81. Received aggressive IVF resuscitation and then became volume overloaded Was on IV Lasix 20 mg 3 times daily now changed to p.o. 40 mg twice daily. Enterostomal Nurse recommend the patient be on this for at least short-term. Will need reevaluation at the longterm facility. Noted that patient was taking Lasix 40 mg daily at home prior to being hospitalized. Currently appears euvolemic (3) UTI (urinary tract infection): Plan: No evidence of sepsis Urine culture grew E coli and Klebsiella She was started on IV Azactam due to penicillin allergy Blood culture no growth Azactam was changed to ceftriaxone Completed the course of antibiotic (4) Chronic diastolic CHF (congestive heart failure): (5) Moderate aortic stenosis: (6) LUZ MARIA (obstructive sleep apnea): (7) Shortness of breath: Plan: Shortness of breath likely multifactorial due to obesity, chronic diastolic CHF, possible pneumonia on CXR History of chronic hypoxia and PCP was trying to arrange for outpatient oxygen supplement CXR showedBilateral lower lung predominant airspace opacities which may represent atelectasis, pneumonia, and/or aspiration.Bilateral pleural effusions, increased from prior exam. CT chest showed small right and trace left pleural effusions. Extensive atelectasis versus scarring without evidence of pneumonia. ProBNP on admission 7449 Echocardiogram on 10/24 showed EF 60 to 65%, moderate valvular aortic stenosis Currently saturating well on 2 L of oxygen Patient also has LUZ MARIA but has not been compliant with CPAP. Noted previously to have elevated bicarb. This could be due to LUZ MARIA plus or minus diuretic use. She agreed to discuss further with her PCP about trying different masks as the mask was her problem. Needs outpatient sleep study Will require 2 step prior to discharge since requiring 2L NC O2 during the day (8) Hyperkalemia: Plan: Potassium peaked at 6.0 Received Veltassa by Nephro which has since been discontinued as per nephro K+ 3.7 on 11/10 (9) Tremor: Plan: 8 tremor noted at examination, action tremor of bilateral extremities noted. Possible related to medication side effect in the setting of acute renal failure Neurology consulted-no plan to start on any treatment at this time Follow-up with neurology in 4 to 6 weeks outpatient if tremor persists (10) Paroxysmal atrial flutter: (11) Paroxysmal atrial fibrillation: Plan: Rhythm controlled on amiodarone Due to bradycardia, metoprolol was reduced from 25 mg BID to 12.5 mg BID Heart rate remained stable in the 50s. Patient asymptomatic. Anticoagulated with Coumadin Per Admission med rec, she was on 5mg SMTWThSa and 2.5mg Fr --> was reduced to 2.5mg on MoFr and 5mg other days due to supratherapeutic INR on 11/05 INR 1.2 today. Continue with home regimen. (12) Elevated troponin: Plan: Troponin peaked at 0.[address] changes, no reports of chest pain Echocardiogram no wall motion abnormalities Likely due to SHAYNE (13) Skin excoriation: (14) Sacral wound: Plan: Healing Wound care nurse following Completed the course of antibiotic with doxy (15) History of pulmonary embolism: Plan: On Coumadin (16) DM type 2 (diabetes mellitus, type 2): Plan: Hgb A1c 6.2 07/2021 On NovoLog per protocol. Blood sugars running in the 150s to 170s. Lantus was held on admission, 10 units resumed on 11/09. Blood sugars remain mildly elevated, will increase to 20 units at bedtime. Continue monitor blood sugar (17) History of breast cancer: Plan: Continue anastrozole (18) Depression: Plan: Continue Lyrica (19) DVT prophylaxis: Plan: On Coumadin Dispo -medically stable for discharge, awaiting placement likely Tuesday to [facility] - likely over the weekend. Admission and Anticipated Discharge Date Admission Date: October 23, 2021 Subjective Patient was sitting up in bed, on 2 L nasal cannula oxygen, reading book, NAD, no new acute events overnight. Patient reports tremors on and off with exertion. Patient denies fever/headache/chills/chest pain/belly pain/other review of symptoms. She reports eating and moving bowels okay. Physical Exam Physical Exam: GENERAL: Alert and oriented x3. NAD, on 2L HEENT: No pallor, no icterus. Pupils equal, round and reactive to light. Oral mucosa moist. NECK: No JVD, no neck masses. HEART: S1 and S2 heard. Regular rate and rhythm. Systolic murmur over aortic and pulmonic area,, no gallop. RESPIRATORY SYSTEM: Normal AP diameter. No accessory muscle use. No wheezing, no crackles. ABDOMEN: Soft, bowel sounds present, nontender, no distention. CENTRAL NERVOUS SYSTEM: No facial droop. Speech is clear. Obeys simple commands. Moves extremities. EXTREMITIES: No edema, no erythema seen. Results & Data Results & Data ([facility]) Vital Signs (Past 12 Hours) Vital Signs Temp Pulse Resp BP Pulse Ox 11/14/21 08:01 36.7 C 53 L 16 134/60 96
[2021-11-14] MEDS: WARFARIN SOD 5 MG TAB PO SCH (17:38)
[2021-11-14] MEDS: INSULIN GLARGINE SOLOSTAR 100 UNITS/ML 3 ML PEN SC SCH (20:41)
[2021-11-15] MEDS: METOPROLOL TARTRATE 25 MG TAB PO SCH ×2 (09:26→21:48)
[2021-11-15] MEDS: FUROSEMIDE 40 MG TAB PO SCH ×2 (09:30→16:55)
[2021-11-15] MEDS: ANASTROZOLE 1 MG TAB PO SCH (09:30)
[2021-11-15] MEDS: DOCUSATE SODIUM 100 MG CAP PO SCH ×2 (09:31→21:47)
[2021-11-15] MEDS: AMIODARONE 200 MG TAB PO SCH ×2 (09:31→16:54)
[2021-11-15] MEDS: NYSTATIN POWDER 15GM BTL EXT SCH ×2 (09:32→21:48)
[2021-11-15] MEDS: POLYETHYLENE (MIRALAX) 17 GM PACK PO SCH ×2 (09:32→21:48)
[2021-11-15] MEDS: DICLOFENAC SOD 1% GEL 100 GM TUBE EXT SCH ×2 (09:32→21:46)
[2021-11-15] MEDS: PANTOprazole 40 MG TAB PO SCH (09:32)
[2021-11-15] MEDS: INSULIN ASPART PER UNIT SC SCH ×4 (09:34→21:47)
[2021-11-15] MEDS: PREGABALIN 100 MG CAP PO SCH ×2 (09:39→22:00)
--- NOTE | 2021-11-15 12:23 | Hospitalist Progress Note ---
Date of Service November 15, 2021 Assessment & Plan (1) UTI (urinary tract infection): Plan: (1) Acute kidney injury superimposed on CKD: (2) CKD (chronic kidney disease), stage III: Plan: SHAYNE has resolved. Creatinine peaked at 3.81. Received aggressive IVF resuscitation and then became volume overloaded Was on IV Lasix 20 mg 3 times daily now changed to p.o. 40 mg twice daily. Apartment Leasing Agent recommend the patient be on this for at least short-term. Will need reevaluation at the intermediate facility. Noted that patient was taking Lasix 40 mg daily at home prior to being hospitalized. Currently appears euvolemic (3) UTI (urinary tract infection): Plan: No evidence of sepsis Urine culture grew E coli and Klebsiella She was started on IV Azactam due to penicillin allergy Blood culture no growth Azactam was changed to ceftriaxone Completed the course of antibiotic (4) Chronic diastolic CHF (congestive heart failure): (5) Moderate aortic stenosis: (6) LUZ MARIA (obstructive sleep apnea): (7) Shortness of breath: Plan: Shortness of breath likely multifactorial due to obesity, chronic diastolic CHF, possible pneumonia on CXR History of chronic hypoxia and PCP was trying to arrange for outpatient oxygen supplement CXR showedBilateral lower lung predominant airspace opacities which may represent atelectasis, pneumonia, and/or aspiration.Bilateral pleural effusions, increased from prior exam. CT chest showed small right and trace left pleural effusions. Extensive atelectasis versus scarring without evidence of pneumonia. ProBNP on admission 7449 Echocardiogram on 10/24 showed EF 60 to 65%, moderate valvular aortic stenosis Currently saturating well on 2 L of oxygen Patient also has LUZ MARIA but has not been compliant with CPAP. Noted previously to have elevated bicarb. This could be due to LUZ MARIA plus or minus diuretic use. She agreed to discuss further with her PCP about trying different masks as the mask was her problem. Needs outpatient sleep study Will require 2 step prior to discharge since requiring 2L NC O2 during the day (8) Hyperkalemia: Plan: Potassium peaked at 6.0 Received Veltassa by Nephro which has since been discontinued as per nephro K+ 3.7 on 11/10 (9) Tremor: Plan: 8 tremor noted at examination, action tremor of bilateral extremities noted. Possible related to medication side effect in the setting of acute renal failure Neurology consulted-no plan to start on any treatment at this time Follow-up with neurology in 4 to 6 weeks outpatient if tremor persists (10) Paroxysmal atrial flutter: (11) Paroxysmal atrial fibrillation: Plan: Rhythm controlled on amiodarone Due to bradycardia, metoprolol was reduced from 25 mg BID to 12.5 mg BID Heart rate remained stable in the 50s. Patient asymptomatic. Anticoagulated with Coumadin Per Admission med rec, she was on 5mg SMTWThSa and 2.5mg Fr --> was reduced to 2.5mg on MoFr and 5mg other days due to supratherapeutic INR on 11/05 INR 2.2 on 11/13. Continue with home regimen. (12) Elevated troponin: Plan: Troponin peaked at 0.[address] changes, no reports of chest pain Echocardiogram no wall motion abnormalities Likely due to SHAYNE (13) Skin excoriation: (14) Sacral wound: Plan: Healing Wound care nurse following Completed the course of antibiotic with doxy (15) History of pulmonary embolism: Plan: On Coumadin (16) DM type 2 (diabetes mellitus, type 2): Plan: Hgb A1c 6.2 07/2021 On NovoLog per protocol. Blood sugars running in the 150s to 170s. Lantus was held on admission, 10 units resumed on 11/09. Blood sugars remain mildly elevated, will increase to 20 units at bedtime. Continue monitor blood sugar (17) History of breast cancer: Plan: Continue anastrozole (18) Depression: Plan: Continue Lyrica (19) DVT prophylaxis: Plan: On Coumadin Dispo -medically stable for discharge, awaiting placement likely Tuesday to [facility] per . Admission and Anticipated Discharge Date Admission Date: October 23, 2021 Subjective Patient was sitting up in bed, on 2 L nasal cannula oxygen, NAD, no new acute events overnight. Patient reports tremors on and off with exertion. Patient denies fever/headache/chills/chest pain/belly pain/other review of symptoms. She reports eating and moving bowels okay. Physical Exam Physical Exam: GENERAL: Alert and oriented x3. NAD, on 2L HEENT: No pallor, no icterus. Pupils equal, round and reactive to light. Oral mucosa moist. NECK: No JVD, no neck masses. HEART: S1 and S2 heard. Regular rate and rhythm. Systolic murmur over aortic and pulmonic area, no gallop. RESPIRATORY SYSTEM: Normal AP diameter. No accessory muscle use. No wheezing, no crackles. ABDOMEN: Soft, bowel sounds present, nontender, no distention. CENTRAL NERVOUS SYSTEM: No facial droop. Speech is clear. Obeys simple commands. Moves extremities. EXTREMITIES: No edema, no erythema seen. Results & Data Results & Data ([facility]) Vital Signs (Past 12 Hours) Vital Signs Temp Pulse Pulse Resp BP Pulse Ox 11/15/21 09:30 60 148/65 H 11/15/21 07:16 36.6 C 55 L 20 137/63 96
[2021-11-15] MEDS: WARFARIN SOD 5 MG TAB PO SCH (16:55)
[2021-11-15] MEDS: INSULIN GLARGINE SOLOSTAR 100 UNITS/ML 3 ML PEN SC SCH (21:47)
[2021-11-16] MEDS: METOPROLOL TARTRATE 25 MG TAB PO SCH (08:52)
[2021-11-16] MEDS: FUROSEMIDE 40 MG TAB PO SCH (08:52)
[2021-11-16] MEDS: AMIODARONE 200 MG TAB PO SCH (08:53)
[2021-11-16] MEDS: ANASTROZOLE 1 MG TAB PO SCH (08:54)
[2021-11-16] MEDS: DOCUSATE SODIUM 100 MG CAP PO SCH (08:54)
[2021-11-16] MEDS: PANTOprazole 40 MG TAB PO SCH (08:54)
[2021-11-16] MEDS: NYSTATIN POWDER 15GM BTL EXT SCH (08:55)
[2021-11-16] MEDS: DICLOFENAC SOD 1% GEL 100 GM TUBE EXT SCH (08:55)
[2021-11-16] MEDS: POLYETHYLENE (MIRALAX) 17 GM PACK PO SCH (08:56)
[2021-11-16] MEDS: PREGABALIN 100 MG CAP PO SCH (09:03)
[2021-11-16] MEDS: INSULIN ASPART PER UNIT SC SCH ×2 (09:03→12:51)
--- NOTE | 2021-11-16 13:22 | Discharge Summary ---
Date of Service November 16, 2021 Admission HPI Per Admitting Provider 81-year-old female with PMH DM type II, LUZ MARIA noncompliant with CPAP, paroxysmal SVT, nonsustained V. tach, paroxysmal atrial fibrillation and flutter on amiodarone and Coumadin chronic diastolic CHF, HTN, aortic stenosis, CKD stage III, history of breast cancer, lymphedema, history of pulmonary embolism on Coumadin, and other problems listed below who presents the ED for evaluation of generalized weakness. Patient noted to be somewhat of a poor historian. Patient reports that over the past 1 month, she has noted increased generalized tremors/shakes. Patient reports this symptom reminded her of when she was very ill at the beginning of the year with cholangitis and bacteremia. Patient reports that yesterday, the tremors and shakes got acutely worse and when she attempted to ambulate, her legs were giving out from under her. She denies any falls. Patient also carries a history of chronic hypoxia, multifactorial due to LUZ MARIA and obesity. Was recently seen by PCP who was to resume 2 L of oxygen continuous. Patient notes some worsening shortness of breath however she is unsure for how long. Reports a chronic cough productive for white/acute clear sputum and notes increased sputum production over the past week. No change in sputum color. Patient denies fevers and chills. No chest pain. Denies lightheadedness, dizziness, diaphoresis, syncopal events. States her right lower extremity was seeping a clear fluid for which she placed a dressing on. Reports oral intake has been at baseline. Denies abdominal pain, nausea, vomiting, diarrhea. Notes that she is usually up frequently throughout the night having to urinate however last night she did not get up one time. Notes some dysuria this week. In the ED, labs show WBC 11.4K, K+ 5.2, creatinine 3.7 (was recently 1.2 on outpatient labs), troponin 0.156. UA suggestive of UTI. CXR showing pneumonia/possible volume overload. Patient was given IV Levaquin and IVF. Admission Exam Per Admitting Provider Constitutional: WD/WN, vitals as above + obese; no acute distress Eyes: PERRL, conjunctivae normal, anicteric sclerae ENMT: external ear and nose normal, oropharynx normal Respiratory: normal respiratory effort; no respiratory distress Auscultation: + diminished lung sounds Cardiovascular: Rate/Rhythm: regular rhythm and + bradycardic Vessels: normal peripheral pulses Extremities: + edema (+3 edema BLE) Gastrointestinal (Abdomen): normal bowel sounds, soft, nontender, no hepatosplenomegaly Musculoskeletal: no cyanosis or clubbing, extremities motor strength 5/5 Skin: no rashes, warm and dry + excoriations (Abdominal folds) Dressing removed from RLE -small reddened area noted, relatively unremarkable. Patient notes she has wounds on her sacrum however due to patient's size and size of current gurney, she was unable to roll onto her side for me to further evaluate. Neurologic: PERRL, EOMI, accommodation nl, no face palsy, no dysarthria Psychiatric: A+Ox3, euthymic affect Principal Diagnosis SHAYNE over CKD UTI Action Tremor of hands and legs Discharge Exam GENERAL: Alert and oriented x3. NAD, on 2L HEENT: No pallor, no icterus. Pupils equal, round and reactive to light. Oral mucosa moist. NECK: No JVD, no neck masses. HEART: S1 and S2 heard. Regular rate and rhythm. Systolic murmur over aortic and pulmonic area, no gallop. RESPIRATORY SYSTEM: Normal AP diameter. No accessory muscle use. No wheezing, no crackles. ABDOMEN: Soft, bowel sounds present, nontender, no distention. CENTRAL NERVOUS SYSTEM: No facial droop. Speech is clear. Obeys simple commands. Moves extremities. EXTREMITIES: No pitting BLE edema, Chronic skin changes with non pitting BLE edema, no erythema seen. Discharge Data Allergies Allergy/AdvReac Type Severity Reaction Status Date / Time Penicillins Allergy Severe SOB Unverified 10/23/21 14:01 ,THROAT SHUT,COULDN'T BREATHE rosiglitazone Allergy Severe UNKNOWN-RELATED Verified 10/23/21 14:01 POSS TO DVT/PE PER MEDICAL RECORD acetaminophen Allergy Intermediate HIVES Verified 10/23/21 14:01 tramadol Allergy Unknown UNKNOWN Verified 10/23/21 14:01 adhesive AdvReac Mild IRRITATES Verified 10/24/21 07:49 SKIN Consultations 10/23/21 16:05 ED Decision to Admit Stat 10/23/21 20:06 Consult Nephrology Routine 10/26/21 16:03 Consult Neurology Routine Ordered Studies 10/23/21 17:06 US renal/blad retro comp Urgent 10/24/21 08:59 CT chest diagnostic wo con Urgent Hospital Course (1) UTI (urinary tract infection): 81-year-old female with PMH DM type II, LUZ MARIA noncompliant with CPAP, paroxysmal SVT, nonsustained V. tach, paroxysmal atrial fibrillation and flutter on amiodarone and Coumadin chronic diastolic CHF, HTN, aortic stenosis, CKD stage III, history of breast cancer, lymphedema, history of pulmonary embolism on Coumadin presented 10/23/21 to our ED for evaluation of generalized weakness.She was managed for the following: (1) Acute kidney injury superimposed on CKD: (2) CKD (chronic kidney disease), stage III: Plan: SHAYNE has resolved. Creatinine peaked at 3.81. Received aggressive IVF resuscitation and then became volume overloaded Was on IV Lasix 20 mg 3 times daily then changed to p.o. 40 mg twice daily. Restaurant Front Manager recommend the patient be on this for at least short-term. Will need reevaluation at the long-term facility. Noted that patient was taking Lasix 40 mg daily at home prior to being hospitalized. Currently appears euvolemic (3) UTI (urinary tract infection): Plan: No evidence of sepsis Urine culture grew E coli and Klebsiella She was started on IV Azactam due to penicillin allergy Blood culture no growth Azactam was changed to ceftriaxone Completed the course of antibiotic (4) Chronic diastolic CHF (congestive heart failure): (5) Moderate aortic stenosis: (6) LUZ MARIA (obstructive sleep apnea): (7) Shortness of breath: Plan: Shortness of breath likely multifactorial due to obesity, chronic diastolic CHF, possible pneumonia on CXR History of chronic hypoxia and PCP was trying to arrange for outpatient oxygen supplement CXR showedBilateral lower lung predominant airspace opacities which may represent atelectasis, pneumonia, and/or aspiration.Bilateral pleural effusions, increased from prior exam. CT chest showed small right and trace left pleural effusions. Extensive atelectasis versus scarring without evidence of pneumonia. ProBNP on admission 7449 Echocardiogram on 10/24 showed EF 60 to 65%, moderate valvular aortic stenosis Currently saturating well on 2 L of oxygen Patient also has LUZ MARIA but has not been compliant with CPAP. Noted previously to have elevated bicarb. This could be due to LUZ MARIA plus or minus diuretic use. She agreed to discuss further with her PCP about trying different masks as the mask was her problem. Needs outpatient sleep study (8) Hyperkalemia: Plan: Potassium peaked at 6.0 Received Veltassa by Nephro which has since been discontinued as per nephro K+ 3.7 on 11/10 Resolved (9) Tremor: Plan: 8 tremor noted at examination, action tremor of bilateral extremities noted. Possible related to medication side effect in the setting of acute renal failure Neurology consulted-no plan to start on any treatment at this time Follow-up with neurology in 4 to 6 weeks outpatient if tremor persists (10) Paroxysmal atrial flutter: (11) Paroxysmal atrial fibrillation: Plan: Rhythm controlled on amiodarone Due to bradycardia, metoprolol was reduced from 25 mg BID to 12.5 mg BID Heart rate remained stable in the 50s. Patient asymptomatic. Anticoagulated with Coumadin Per Admission med rec, she was on 5mg SMTWThSa and 2.5mg Fr --> was reduced to 2.5mg on MoFr and 5mg other days due to supratherapeutic INR on 11/05 INR 2.2 on 11/13. Continue with home regimen. (12) Elevated troponin: Plan: Troponin peaked at 0.[address] changes, no reports of chest pain Echocardiogram no wall motion abnormalities Likely due to SHAYNE (13) Skin excoriation: (14) Sacral wound: Plan: Healing Wound care nurse following Completed the course of antibiotic with doxy (15) History of pulmonary embolism: Plan: On Coumadin (16) DM type 2 (diabetes mellitus, type 2): Plan: Hgb A1c 6.2 07/2021 On NovoLog per protocol. Blood sugars running in the 150s to 170s. Lantus was held on admission, 10 units resumed on 11/09. Blood sugars remain mildly elevated, will increase to 20 units at bedtime. Continue monitor blood sugar (17) History of breast cancer: Plan: Continue anastrozole (18) Depression: Plan: Continue Lyrica (19) DVT prophylaxis: Plan: On Coumadin Patient is being discharged to [facility] with following instruction at the point of discharge: Follow-up with your PCP within a week time. Nephrology evaluated you while inpatient. Your Lasix dose has been increased to 40 mg twice daily, will need reevaluation in 1 to 2 weeks to decide on the dose of Lasix. Get your blood work BMP done in 1 week time. Your metoprolol tartrate is reduced to 12.5 mg twice a day from 25 mg twice a day due to your heart rate constantly being in the low range while in hospital. As discussed at the bedside, encourage discussing with PCP about trying different masks for LUZ MARIA compliance. Advise outpatient sleep study. Follow-up with neurology in 4 to 6 weeks upon discharge if tremor persist. Take medications as prescribed. Total Time Total Time Spent Total Time Spent (In Minutes): 40 Discharge Plan Discharge Items Patient Disposition: Transfer Long-Term Fac Reason For Visit: SHAYNE, UTI, PNEUMONIA/CHF Discharge Diagnosis: SHAYNE over CKD UTI Action Tremor of hands and legs Activity: Resume your previous activity Non-emergency contact: Primary Care Provider Call non-emergency contact if: you have any medication questions, your symptoms worsen and your temperature is above 101 Follow-up/Referrals: Christiano Felton MD [Primary Care Provider] - Maciel So DO [Physician] - (Date & Time 03/03/2022 11:20 AM Provider Maciel So DO Department Neurology [facility] ) Diet: Carb Consistent or DM2 and Low Sodium (2gm) Fluids: 1500ml (6 cups) Diet Texture: Easy to Chew Addtl Attending Provider Instructions: Follow-up with your PCP within a week time. Nephrology evaluated you while inpatient. Your Lasix dose has been increased to 40 mg twice daily, will need reevaluation in 1 to 2 weeks to decide on the dose of Lasix. Get your blood work BMP done in 1 week time. Your metoprolol tartrate is reduced to 12.5 mg twice a day from 25 mg twice a day due to your heart rate constantly being in the low range while in hospital. As discussed at the bedside, encourage discussing with PCP about trying different masks for LUZ MARIA compliance. Advise outpatient sleep study. Follow-up with neurology in 4 to 6 weeks upon discharge if tremor persist. Take medications as prescribed. Pending Studies at Discharge: No Stand-Alone Forms: [employer] Skilled Items Patient informed of condition?: Yes DNR: No Discharge Level of Care: Skilled Communicable Disease: No Discharge Prognosis: Stable Lines: None Urinary Catheter: No Medications and DC Order Prescriptions: New metoprolol tartrate 25 mg Tablet 12.5 mg PO BID Qty: 30 RF: 0 docusate sodium 100 mg Capsule 100 mg PO BID Qty: 60 RF: 0 polyethylene glycol 3350 [Miralax] 17 gram Powder In Packet 17 g PO BID Qty: 60 RF: 0 Continued metformin 1,000 mg tablet 1,000 mg PO BID RF: 0 anastrozole 1 mg tablet 1 mg PO DAILY RF: 0 cyanocobalamin (vitamin B-12) 1,000 mcg tablet 1,000 mcg PO DAILY RF: 0 lisinopril 10 mg tablet 10 mg PO DAILY RF: 0 pregabalin [Lyrica] 200 mg capsule 200 mg PO BID RF: 0 cholecalciferol (vitamin D3) 50 mcg (2,000 unit) Capsule 50 mcg PO QAM RF: 0 amiodarone 200 mg Tablet 200 mg PO BIDM Qty: 60 RF: 0 Lantus U-100 Insulin 100 unit/mL solution 34 units SQ DAILY RF: 0 pantoprazole 40 mg tablet,delayed release (DR/EC) 40 mg PO DAILY RF: 0 Lantus U-100 Insulin 100 unit/mL solution 18 unit SUBCUT HS RF: 0 warfarin 5 mg tablet 2.5 mg PO FR RF: 0 warfarin 5 mg tablet 5 mg PO SUMOTUWETHSA RF: 0 Changed furosemide [Lasix] 40 mg tablet 40 mg PO BID Qty: 60 RF: 0 Discontinued metoprolol tartrate 50 mg tablet 25 mg PO BID RF: 0 Discharge Orders: Discharge Order (Routine); Ordered 11/16/21 Ordered By: Sheryl Baldwin Admission Data Admit Date/Time: 10/23/21 16:21 Attending Provider: Sheryl Baldwin Admit Provider: Ralf Hoang Primary Care Provider: Christiano Felton Other Providers: Rhiannon Dill [place] ; [place] ; Ralf Hoang ; Julee Roth ; Maciel So
--- NOTE | 2021-12-01 08:56 | Coding Query ---
CODING QUERY To promote full compliance with coding requirements relating to patient care, provider participation is requested in all cases of metalsmith uncertainty. Please assist us with the question(s) below: Coding Question(s): Pt admitted with UTI and SHAYNE . Seeking to clarify if Pneumonia was treated during this Admission. 11/15 progress note stated "CT Chest small right and left pleural effusion. Workup without evidence for pneumonia." CXR pneumonia was possible. Please check the phrase that describes the Pneumonia. Thanks for your help! JERSON Forbes [facility] Physician's Response(s): Pneumonia was treated during this admission, present on admission ____X Pneumonia was not treated during this admission Cannot Clinically Correlate if Pneumonia was treated during this admission Other: Please document: Principal Diagnosis: "that condition established after study, to be chiefly responsible for occasioning the admission of the patient to the hospital for care." Co-Existing Principal Diagnosis: "when two or more diagnoses equally meet the criteria for principal diagnosis as determined by the circumstances of admission, diagnostic work up, and/or therapy provided, and the Alphabetic Index, Tabular List, or another coding guideline does not provide sequencing direction, any one of the diagnoses may be sequenced first." "When the physician has documented what appears to be a current diagnosis in the body of the record, but has not included the diagnosis in the final diagnostic statement, the physician should be asked whether the diagnosis should be added." (Source Coding Clinic 2 QTR90. p3-4) CANDELARIAD
== END 2021-11-16 14:37 | DRG 683 ==
LOC: ED 13:16 → EDINP 16:21 → SUATTDRO 16:21 → 2S 20:10 → 3N 11-06 16:41 → 3W 11-15 15:39

== ENCOUNTER 2022-12-28 18:19 | Observation (INO) ==
--- NOTE | 2022-12-28 19:04 | Emergency Department Note ---
Impression & Plan COVID-19, Hypoxemia ED Provider Note NAME: ANABELLA STOREY AGE: 82 SEX: F : 1940 ARRIVES VIA: Ambulance INFORMANT: Patient, ED PROVIDER(S): Saul Mtz MD CHIEF COMPLAINT: Shortness of breath MEDICAL DECISION MAKING: Patient did present with shortness of breath. If patient's initial blood work showed a leukopenia with a white count of 4.6 with a hemoglobin 9.5. The patient's platelet count is unremarkable. Kidney function unremarkable with a BSG 115. Calcium slightly low at 8.1 which is ordered for replacement. Patient troponin is not elevated. The patient did have increased work of breathing so the patient was placed on high flow and was given a small amount of Ativan to help her tolerate this. Respiratory was kind enough to perform DuoNeb treatments as well as perform suction. She was also instructed on flutter valve. Patient did have the IV established DuoNebs were completed patient was i ntermittently borderline hypoxemic in the high 80s on her normal 2 L. I did order dexamethasone 6 mg given her COVID hypoxemia. Chest x-ray with no obvious pneumonia. I did speak the on-call hospitalist Dr. Thomason and the patient was admitted to the medicine service. Critical Care: I have personally spent 45 minutes of critical care time in direct management of this patient. This includes bedside care, interpretation of diagnostic studies, and testing, discussion with consultants, patient, and family members, and other require inpatient management activities. This 45 minutes is in excess of all separately billable procedures. Prior /Outside records reviewed: I did review the patient's most recent wound care note with Halina Horn from November 03, 2022 Differential diagnosis: Reactive airway disease, pneumonia, pneumothorax, COPD, CHF, infections, cardiac ischemia, pulmonary embolism, musculoskeletal, gastrointestinal, as well as other pathologies. Diagnostics, as interpreted by me: ECG: Normal sinus rhythm, rate of 64, wide QRS, left bundle branch block pattern. Left axis deviation Cardiac monitoring: An order was placed for continuous cardiac monitoring. The monitor shows a rate of 72 with sinus rhythm. Patient was placed on pulse oximetry Medical decision rules: None Imaging studies: See below HPI: Patient presents from home due to concern for increasing shortness of breath and was recently diagnosed with COVID. Patient has been feeling relatively well for approximate 2 weeks duration but did have a positive home COVID test 4 days ago. Patient is vaccinated for COVID-19. Patient has complaint of cough and associated diarrhea. Patient is on chronic oxygen at all times. Patient denies any chest or abdominal pain. PAST MEDICAL HISTORY: See Below PAST SURGICAL HISTORY: See Below SOCIAL HISTORY: See Below HOME MEDICATIONS: See Below ALLERGIES: See Below VITALS: See Below PHYSICAL EXAMINATION: GENERAL: Wearing a mask, mildly ill in appearance, increased work of breathing. EYE EXAM: Normal conjunctiva. PERRL, no anisocoria and EOM's grossly intact w/o pain. NECK: Supple, no nuchal rigidity, no adenopathy, non-tender. No signs of meningismus. FROM of the neck with good chin to chest and neck extension. No stridor. LUNGS: Bibasilar crackles noted. Mild increased work of breathing HEART: NSR, no MRG. ABDOMEN: Abdomen soft, non-tender, normo-active bowel sounds, no masses, no rebound or guarding. BACK: No CVA TTP. SKIN: No rashes and no bruising. UPPER EXTREMITIES: Upper extremities are grossly normal. LOWER EXTREMITIES: Grossly normal, scant pretibial edema bilaterally. NEURO EXAM: A&O x3, cranial nerves II-XII grossly intact, normal speech, moves all 4 extremities. Past Med/Surg History Medical History Acute cholecystitis due to biliary calculus Cholangitis Chronic diastolic CHF (congestive heart failure) Chronic venous insufficiency CKD (chronic kidney disease), stage III Depression Diabetes mellitus with neuropathy DM type 2 (diabetes mellitus, type 2) E coli bacteremia History of breast cancer LEFT History of paroxysmal atrial tachycardia History of paroxysmal supraventricular tachycardia [place] [facility] [place], " Although historically she has been diagnosed with "PSVT" it sounds as though she has also had a diagnosis of atrial flutter and on review of telemetry monitoring strips it looks like she has runs of PAT. She also has a twelve-lead electrocardiogram looking like atrial fibrillation. She probably has all of these arrhythmias, but she is asymptomatic with them. Although the heart rate is quite fast she was started on amiodarone and without symptoms it is hard to say what degree of control we have. I do not think extensive monitoring is indicated. I would continue amiodarone for now." History of pulmonary embolism ? 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 Lymphedema, not elsewhere classified Osteoarthritis PAD (peripheral artery disease) Paroxysmal atrial fibrillation Paroxysmal atrial flutter Poor historian Sleep apnea NO DEVICE USED Vitamin D insufficiency Surgical History H/O left mastectomy History of anesthesia reaction "MY HEART IS EXTRA FAST WHEN I GET ANESTHESIA" History of cataract surgery RT/LEFT History of cholecystectomy History of ERCP History of tonsillectomy History of tooth extraction S/P hysterectomy S/P right rotator cuff repair Family History Grandmother (Paternal) Family history of diabetes mellitus Other Family history non-contributory No family history of adverse response to anesthesia Social History Smoking Status: Never smoker Second Hand Exposure: No; Do You Dip or Chew Tobacco: No; Hx Alcohol Use: No Hx Substance Use: No Preferred Language: Vincentian Communication Ability: Effective Visual Impairment: Limited Hearing Ability: Normal Customs And Immigration Officer Required: No Beliefs That Will Affect Care: None marital status: Current Living Situation: Spouse current occupational status: retired Feels Safe at Home: Yes Assistive Devices: Oxygen - Continuous and Walker Allergies Allergies Allergy/AdvReac Type Severity Reaction Status Date / Time Penicillins Allergy Severe SOB Unverified 11/02/22 11:14 ,THROAT SHUT,COULDN'T BREATHE rosiglitazone Allergy Severe UNKNOWN-RELATED Verified 11/02/22 11:14 POSS TO DVT/PE PER MEDICAL RECORD tramadol Allergy Unknown UNKNOWN Verified 11/02/22 11:14 adhesive AdvReac Mild IRRITATES Verified 11/02/22 11:14 SKIN Home Meds Home Medications Medication Instructions Recorded Confirmed anastrozole 1 mg tablet 1 mg PO DAILY 06/12/20 12/28/22 cyanocobalamin (vitamin B-12) 1,000 mcg PO DAILY 06/12/20 12/28/22 1,000 mcg tablet lisinopril 10 mg tablet 10 mg PO DAILY 06/12/20 12/28/22 metformin 1,000 mg tablet 1,000 mg PO AMHS 06/12/20 12/28/22 insulin glargine 100 unit/mL 18 unit subcut HS 10/23/21 12/28/22 subcutaneous solution (Lantus U-100 Insulin) pantoprazole 40 mg tablet,delayed 40 mg PO DAILYBB 10/23/21 12/28/22 release warfarin 5 mg tablet 2.5 mg PO UD 10/23/21 12/28/22 warfarin 5 mg tablet 5 mg PO UD 10/23/21 12/28/22 amiodarone 200 mg tablet 200 mg PO QAM 06/04/22 12/28/22 cholecalciferol (vitamin D3) 50 50 mcg PO Q OTHER DAY 06/04/22 12/28/22 mcg (2,000 unit) capsule diclofenac sodium 1 % topical gel 4 g topical QID PRN Pain 06/04/22 12/28/22 furosemide 40 mg tablet (Lasix) 40 mg PO AMHS 06/04/22 12/28/22 hydroxyzine pamoate 25 mg capsule 25 mg PO TID PRN itching 06/04/22 12/28/22 (Vistaril) insulin glargine 100 unit/mL 34 unit subcut QAM 06/04/22 12/28/22 subcutaneous solution (Lantus U-100 Insulin) ferrous sulfate 325 mg (65 mg 325 mg PO Q OTHER DAY 12/28/22 12/28/22 iron) tablet pregabalin 100 mg capsule 100 mg PO AMHS 12/28/22 12/28/22 Results & Data (ED) Vital Signs Vital Signs - 24 hr 12/28/22 23:26 12/28/22 22:00 12/28/22 23:11 Pulse Rate 80 83 Pulse Rate [Finger] 65 Pulse Rate from SpO2 Sensor 85 84 Pulse Rhythm [Finger] Regular Respiratory Rate 22 20 10 L Respiratory Depth Normal Respiratory Pattern Regular Blood Pressure Blood Pressure [Right Arm] 156/56 H Blood Pressure Mean Blood Pressure Mean [Right Arm] 89 Blood Pressure Position [Right Arm] Sitting Pulse Oximetry 99 97 98 Oxygen Delivery Method Nasal Cannula Oxygen Flow Rate 2 12/28/22 23:20 12/28/22 23:26 12/28/22 23:26 Pulse Rate 75 67 Pulse Rate [Finger] Pulse Rate from SpO2 Sensor 65 Pulse Rhythm [Finger] Respiratory Rate 22 Respiratory Depth Respiratory Pattern Blood Pressure 156/56 H Blood Pressure [Right Arm] Blood Pressure Mean 89 Blood Pressure Mean [Right Arm] Blood Pressure Position [Right Arm] Pulse Oximetry 99 Oxygen Delivery Method Oxygen Flow Rate 12/29/22 00:00 12/29/22 01:00 Pulse Rate 67 68 Pulse Rate [Finger] Pulse Rate from SpO2 Sensor 65 67 Pulse Rhythm [Finger] Respiratory Rate 17 Respiratory Depth Respiratory Pattern Blood Pressure Blood Pressure [Right Arm] Blood Pressure Mean Blood Pressure Mean [Right Arm] Blood Pressure Position [Right Arm] Pulse Oximetry 100 99 Oxygen Delivery Method Oxygen Flow Rate Home Medications Current Medication List: was personally reviewed by me Laboratory Data Attestation: I reviewed the patient's lab results. 12/29/22 07:13 12/29/22 07:13 Lab Results 12/28/22 12/28/22 12/28/22 Range/Units 19:20 20:06 20:06 WBC 4.67 L (4.8-10.8) K/ul RBC 3.76 L (4.20-5.40) M/uL Hgb 9.5 L (12.0-16.0) g/dl POC Hgb (12.0-16.0) g/dl Hct 30.7 L (37.0-47.0) % POC Hct (37-47) % MCV 81.6 (80.0-100.0) fL MCH 25.3 (25.0-34.0) pg MCHC 30.9 L (32.0-36.0) g/dL RDW Std Deviation 48.3 H (36.4-46.3) fL RDW Coeff of [place] 16.3 H (11.5-14.5) % Plt Count 222 (130-400) K/uL MPV 11.3 (9.4-12.4) fL Immature Gran % (Auto) 2.1 % Neut % (Auto) 51.0 % Lymph % (Auto) 34.9 % [place] % (Auto) 10.5 % Eos % (Auto) 0.9 % Baso % (Auto) 0.6 % Neut # (Auto) 2.38 (1.40-6.50) K/uL Lymph # (Auto) 1.63 (1.2-3.4) K/uL [place] # (Auto) 0.49 (0.11-0.59) K/uL Eos # (Auto) 0.04 (0-0.50) K/uL Baso # (Auto) 0.03 (0-0.2) K/uL Immature Gran # (Auto) 0.10 (0.01-0.20) K/uL PT (9.0-12.0) Seconds INR (0.9-1.1) POC pH (7.35-7.45) POC pCO2 (35-46) mmHg POC pO2 (80-95) mmHg POC HCO3 (19-24) pedro/L POC Total CO2 (24-31) mmol/L POC Base Excess (-9-1.8) pedro/L POC ABG O2 Sat (90-95) % POC Sodium (135-144) mmol/L Sodium 138 (136-145) mmol/L POC Potassium (3.3-5.0) mmol/L Potassium 3.7 (3.5-5.1) mmol/L Chloride 99 (98-107) mmol/L Carbon Dioxide 31 (21-32) mmol/L Anion Gap 8 (3-11) BUN 14 (6-23) mg/dl Creatinine 1.08 (0.6-1.2) mg/dl Est Cr Clr Drug Dosing Not Reportable Est GFR ( Amer) 56.1 ml/min Est GFR (Non-Af Amer) 48.4 ml/min BUN/Creatinine Ratio 13.0 (10-20) Glucose 115 H (70-99(Fasting)) mg/dl Estimat Average Glucose mg/dl Hemoglobin A1c (4.5-5.6) % Calcium 8.1 L (8.5-10.1) mg/dl Magnesium 1.7 (1.7-2.4) mg/dl Total Bilirubin 0.3 (0.2-1.0) mg/dl AST 30 (13-39) U/L ALT 16 (7-52) U/L Alkaline Phosphatase 40 (34-104) U/L Troponin I High Sens 13.6 (0-14) pg/ml Total Protein 6.8 (6.0-8.3) gm/dl Albumin 3.6 (3.4-5.0) gm/dl Globulin 3.2 (2.5-4.0) gm/dl Albumin/Globulin Ratio 1.1 (0.9-2) TSH (0.300-4.500) uIu/ml SARS-CoV-2 (PCR) POSITIVE A* (Negative) Influenza Type A (PCR) Negative (Neg) Influenza Type B (PCR) Negative (Neg) RSV (RT-PCR) Negative (Neg) 12/28/22 12/28/22 12/28/22 Range/Units 20:06 20:06 20:06 WBC (4.8-10.8) K/ul RBC (4.20-5.40) M/uL Hgb (12.0-16.0) g/dl POC Hgb (12.0-16.0) g/dl Hct (37.0-47.0) % POC Hct (37-47) % MCV (80.0-100.0) fL MCH (25.0-34.0) pg MCHC (32.0-36.0) g/dL RDW Std Deviation (36.4-46.3) fL RDW Coeff of [place] (11.5-14.5) % Plt Count (130-400) K/uL MPV (9.4-12.4) fL Immature Gran % (Auto) % Neut % (Auto) % Lymph % (Auto) % [place] % (Auto) % Eos % (Auto) % Baso % (Auto) % Neut # (Auto) (1.40-6.50) K/uL Lymph # (Auto) (1.2-3.4) K/uL [place] # (Auto) (0.11-0.59) K/uL Eos # (Auto) (0-0.50) K/uL Baso # (Auto) (0-0.2) K/uL Immature Gran # (Auto) (0.01-0.20) K/uL PT 22.1 H (9.0-12.0) Seconds INR 2.2 H (0.9-1.1) POC pH (7.35-7.45) POC pCO2 (35-46) mmHg POC pO2 (80-95) mmHg POC HCO3 (19-24) pedro/L POC Total CO2 (24-31) mmol/L POC Base Excess (-9-1.8) pedro/L POC ABG O2 Sat (90-95) % POC Sodium (135-144) mmol/L Sodium (136-145) mmol/L POC Potassium (3.3-5.0) mmol/L Potassium (3.5-5.1) mmol/L Chloride (98-107) mmol/L Carbon Dioxide (21-32) mmol/L Anion Gap (3-11) BUN (6-23) mg/dl Creatinine (0.6-1.2) mg/dl Est Cr Clr Drug Dosing Est GFR ( Amer) ml/min Est GFR (Non-Af Amer) ml/min BUN/Creatinine Ratio (10-20) Glucose (70-99(Fasting)) mg/dl Estimat Average Glucose 146 mg/dl Hemoglobin A1c 6.7 H (4.5-5.6) % Calcium (8.5-10.1) mg/dl Magnesium (1.7-2.4) mg/dl Total Bilirubin (0.2-1.0) mg/dl AST (13-39) U/L ALT (7-52) U/L Alkaline Phosphatase (34-104) U/L Troponin I High Sens (0-14) pg/ml Total Protein (6.0-8.3) gm/dl Albumin (3.4-5.0) gm/dl Globulin (2.5-4.0) gm/dl Albumin/Globulin Ratio (0.9-2) TSH 1.635 (0.300-4.500) uIu/ml SARS-CoV-2 (PCR) (Negative) Influenza Type A (PCR) (Neg) Influenza Type B (PCR) (Neg) RSV (RT-PCR) (Neg) 12/28/22 Range/Units 22:58 WBC (4.8-10.8) K/ul RBC (4.20-5.40) M/uL Hgb (12.0-16.0) g/dl POC Hgb 9.9 L (12.0-16.0) g/dl Hct (37.0-47.0) % POC Hct 29 L (37-47) % MCV (80.0-100.0) fL MCH (25.0-34.0) pg MCHC (32.0-36.0) g/dL RDW Std Deviation (36.4-46.3) fL RDW Coeff of [place] (11.5-14.5) % Plt Count (130-400) K/uL MPV (9.4-12.4) fL Immature Gran % (Auto) % Neut % (Auto) % Lymph % (Auto) % [place] % (Auto) % Eos % (Auto) % Baso % (Auto) % Neut # (Auto) (1.40-6.50) K/uL Lymph # (Auto) (1.2-3.4) K/uL [place] # (Auto) (0.11-0.59) K/uL Eos # (Auto) (0-0.50) K/uL Baso # (Auto) (0-0.2) K/uL Immature Gran # (Auto) (0.01-0.20) K/uL PT (9.0-12.0) Seconds INR (0.9-1.1) POC pH 7.58 H* (7.35-7.45) POC pCO2 26 L (35-46) mmHg POC pO2 110 H (80-95) mmHg POC HCO3 25 H (19-24) pedro/L POC Total CO2 26 (24-31) mmol/L POC Base Excess 3.0 H (-9-1.8) pedro/L POC ABG O2 Sat 99.0 H (90-95) % POC Sodium 139 (135-144) mmol/L Sodium (136-145) mmol/L POC Potassium 2.8 L (3.3-5.0) mmol/L Potassium (3.5-5.1) mmol/L Chloride (98-107) mmol/L Carbon Dioxide (21-32) mmol/L Anion Gap (3-11) BUN (6-23) mg/dl Creatinine (0.6-1.2) mg/dl Est Cr Clr Drug Dosing Est GFR ( Amer) ml/min Est GFR (Non-Af Amer) ml/min BUN/Creatinine Ratio (10-20) Glucose (70-99(Fasting)) mg/dl Estimat Average Glucose mg/dl Hemoglobin A1c (4.5-5.6) % Calcium (8.5-10.1) mg/dl Magnesium (1.7-2.4) mg/dl Total Bilirubin (0.2-1.0) mg/dl AST (13-39) U/L ALT (7-52) U/L Alkaline Phosphatase (34-104) U/L Troponin I High Sens (0-14) pg/ml Total Protein (6.0-8.3) gm/dl Albumin (3.4-5.0) gm/dl Globulin (2.5-4.0) gm/dl Albumin/Globulin Ratio (0.9-2) TSH (0.300-4.500) uIu/ml SARS-CoV-2 (PCR) (Negative) Influenza Type A (PCR) (Neg) Influenza Type B (PCR) (Neg) RSV (RT-PCR) (Neg) Administered Medications Acetaminophen (Acetaminophen 325 Mg Tab) 650 mg PO Q4H PRN PRN Reason: Pain or Fever Stop: 01/28/23 05:29 Last Admin: 12/29/22 21:04 Dose: 650 mg Documented By: Admin: 12/29/22 16:24 Dose: 650 mg Documented By: Admin: 12/29/22 12:16 Dose: 650 mg Documented By: Admin: 12/29/22 09:05 Dose: 650 mg Documented By: SANJUANA Amiodarone HCl (Amiodarone 200 Mg Tab) 200 mg PO [facility] Stop: 01/28/23 08:59 Last Admin: 12/29/22 09:06 Dose: 200 mg Documented By: SANJUANA Anastrozole (Anastrozole 1 Mg Tab) 1 mg PO DAILY [facility] Stop: 01/28/23 08:59 Last Admin: 12/29/22 09:15 Dose: 1 mg Documented By: SANJUANA Co-signed By: [id number] Benzonatate (Benzonatate 100 Mg Capsule) 100 mg PO TID PRN PRN Reason: Cough Stop: 01/28/23 05:29 Last Admin: 12/29/22 21:05 Dose: 100 mg Documented By: SHANI Calcium Carbonate (Calcium Carbonate 500 Mg Chewable Tab) 500 mg PO TID PRN PRN Reason: Indigestion Stop: 01/28/23 14:44 Last Admin: 12/29/22 21:02 Dose: 500 mg Documented By: Admin: 12/29/22 14:57 Dose: 500 mg Documented By: SANJUANA Ferrous Sulfate (Ferrous Sulfate 325 Mg Tab) 325 mg PO Q48H [facility] Stop: 01/28/23 08:59 Last Admin: 12/29/22 09:06 Dose: 325 mg Documented By: SANJUANA Furosemide (F[facility]semide 40 Mg Tab) [facility] Stop: 01/28/23 08:59 Last Admin: 12/29/22 09:06 Dose: 40 mg Documented By: SANJUANA Guaifenesin (Guaifenesin 600 Mg Tabcr) 1,200 mg PO Q12 [facility] Stop: 01/28/23 20:59 Last Admin: 12/29/22 21:03 Dose: 1,200 mg Documented By: SHANI Insulin Aspart (Insulin Aspart Per Unit) 0 units SC ACHS [facility] Stop: 01/28/23 05:29 Last Admin: 12/29/22 21:38 Dose: 3 units Documented By: SHANI Co-signed By: GAEL Admin: 12/29/22 17:12 Dose: 6 units Documented By: SANJUANA Co-signed By: [id number] Admin: 12/29/22 12:01 Dose: 8 units Documented By: SANJUANA Co-signed By: [id number] Admin: 12/29/22 06:34 Dose: 7 units Documented By: GAEL Co-signed By: SHANI Insulin Glargine (Lantus Per Unit Charge) 10 units SQ BID [facility] Stop: 01/28/23 08:59 Last Admin: 12/29/22 21:38 Dose: 10 units Documented By: SHANI Co-signed By: GAEL Admin: 12/29/22 08:46 Dose: 10 units Documented By: SANUJANA Co-signed By: [id number] Lisinopril (Lisinopril 10 Mg Tab) 10 mg PO DAILY [facility] Stop: 01/28/23 08:59 Last Admin: 12/29/22 09:06 Dose: 10 mg Documented By: SANJUANA Miconazole Nitrate (Miconazole Nitrate Powder 43 Gm) 1 appln EXT PRN PRN PRN Reason: Affected Skin Folds Stop: 01/28/23 11:44 Last Admin: 12/29/22 13:16 Dose: 1 appln Documented By: SANJUANA Pantoprazole Sodium (Pantoprazole 40 Mg Tab) 40 mg PO DAILYBB [facility] Stop: 01/28/23 06:29 Last Admin: 12/29/22 06:43 Dose: 40 mg Documented By: GAEL Potassium Chloride (Potassium Chloride Crtab 20 Meq Tabcr) 20 meq PO BID [facility] Stop: 01/28/23 08:59 Last Admin: 12/29/22 21:05 Dose: 20 meq Documented By: Admin: 12/29/22 09:05 Dose: 20 meq Documented By: SANJUANA Pregabalin (Pregabalin 100 Mg Cap) 100 mg PO BID [facility] Stop: 01/28/23 08:59 Last Admin: 12/29/22 21:05 Dose: 100 mg Documented By: Admin: 12/29/22 09:05 Dose: 100 mg Documented By: SANJUANA Warfarin Sodium (Warfarin Sod 5 Mg Tab) 5 mg PO [id number] [facility] Stop: 01/28/23 15:59 Last Admin: 12/29/22 16:24 Dose: 5 mg Documented By: SANJUANA Discontinued Medications Albuterol (Albut/Ipratrop 3mg/0.5mg Neb 3 Ml Vial) 12 ml NEB ONE ONE; Protocol Stop: 12/28/22 19:13 Last Admin: 12/28/22 19:53 Dose: 12 ml Documented By: SHANI(2) Dexamethasone Sodium Phosphate (DexamethasonePf 10 Mg/Ml Vial) 6 mg IV NOW ONE Stop: 12/28/22 21:36 Last Admin: 12/28/22 22:16 Dose: 6 mg Documented By: PARVEZ Guaifenesin (Guaifenesin 600 Mg Tabcr) 600 mg PO Q12 [facility] Stop: 01/28/23 08:59 Last Admin: 12/29/22 09:06 Dose: 600 mg Documented By: SANJUANA Sodium Chloride (Nss) 500 mls @ 999 mls/hr IV .Q31M [facility] Stop: 12/28/22 19:45 Last Infusion: 12/28/22 22:03 Dose: 0 mls/hr Documented By: Admin: 12/28/22 20:49 Dose: 999 mls/hr Documented By: PARVEZ Calcium Gluconate () 1,000 mg in 60 mls @ 240 mls/hr IV NOW STA Stop: 12/28/22 21:43 Last Infusion: 12/28/22 22:52 Dose: 0 mls/hr Documented By: Admin: 12/28/22 22:16 Dose: 240 mls/hr Documented By: PARVEZ Magnesium Sulfate/Dextrose (Magnesium Sulfate / D5w) 1 gm in 100 mls @ 50 mls/hr IV Q2H [facility] Stop: 12/29/22 05:44 Last Infusion: 12/29/22 08:34 Dose: 0 mls/hr Documented By: Admin: 12/29/22 06:34 Dose: 50 mls/hr Documented By: Infusion: 12/29/22 06:25 Dose: 0 mls/hr Documented By: Admin: 12/29/22 03:35 Dose: 50 mls/hr Documented By: HEATHER Insulin Glargine (Lantus Per Unit Charge) 10 units SQ NOW STA Stop: 12/29/22 02:40 Last Admin: 12/29/22 04:15 Dose: 10 units Documented By: AN Co-signed By: MANOOL Lorazepam (Lorazepam 0.5 Mg Tab) 0.25 mg PO NOW STA Stop: 12/28/22 20:38 Last Admin: 12/28/22 20:47 Dose: 0.25 mg Documented By: AW Imaging Data Radiologist's Impression: Chest X-Ray 12/28/22 19:12 XR chest 1V portable CLINICAL HISTORY: weakness COMPARISON STUDY: Chest CT October 24, 2021 and chest radiograph October 27, 2021. FINDINGS: There is no pneumothorax or pleural effusion. Opacity along the right heart border likely reflects a combination of atelectasis and epicardial fat pad. Linear left midlung opacity reflects atelectasis. No consolidation to suggest pneumonia. Cardiomegaly is unchanged. No evidence for overt pulmonary edema. IMPRESSION: No acute cardiopulmonary findings. Cardiomegaly. ACT 112: Negative or not required by law. Electronically signed by: Stanislav Gonzales M.D. 12/28/2022 7:45 PM Discharge Plan Visit Data Chief Complaint: Illness Stated Complaint: FLU LIKE SX, COVID + ED Provider: Saul Mtz Discharge Problem: COVID-19, Hypoxemia Patient Disposition: Admitted As Inpatient Discharge Instructions Interventions: ED Discharge Assessment Last Done: 12/29/22 04:27
[2022-12-28] MEDS ORDERED: ALBUT/IPRATROP 3MG/0.5MG NEB 3 ML VIAL NEB ONE (19:12)
[2022-12-28] MEDS ORDERED: SODIUM CHLORIDE 0.9% 500 ML IV SCH (19:15)
--- NOTE | 2022-12-28 19:47 | XRay Report ---
XR chest 1V portable CLINICAL HISTORY: weakness COMPARISON STUDY: Chest CT October 24, 2021 and chest radiograph October 27, 2021. FINDINGS: There is no pneumothorax or pleural effusion. Opacity along the right heart border likely r eflects a combination of atelectasis and epicardial fat pad. Linear left midlung opacity reflects ate lectasis. No consolidation to suggest pneumonia. Cardiomegaly is unchanged. No evidence for overt pul monary edema. IMPRESSION: No acute cardiopulmonary findings. Cardiomegaly. ACT 112: Negative or not required by law. Electronically signed by: Stanislav Gonzales M.D. 12/28/2022 7:45 PM
[2022-12-28 20:20] LABS: Influenza A virus by PCR Negative (Neg); Influenza B virus by PCR Negative (Neg); RSV by PCR Negative (Neg)
[2022-12-28 20:36] LABS: SARS CoV2 RNA(COVID-19) Ceph POSITIVE (Negative)
[2022-12-28] MEDS ORDERED: LORazepam 0.5 MG TAB PO STA (20:37)
[2022-12-28 20:45] LABS: Basophils # (auto) 0.03 K/uL (0-0.2); Basophils % (auto) 0.6 %; Eosinophils # (auto) 0.04 K/uL (0-0.50); Eosinophils % (auto) 0.9 %; Hematocrit (blood only) 30.7 % (37.0-47.0); Hemoglobin 9.5 g/dl (12.0-16.0); Immature Granulocytes % (auto) 2.1 %; Lymphocytes # (auto) 1.63 K/uL (1.2-3.4); Lymphocytes % (auto) 34.9 %; Mean Corpuscular Hemoglobin 25.3 pg (25.0-34.0); Mean Corpuscular Hgb Conc 30.9 g/dL (32.0-36.0); Mean Corpuscular Volume 81.6 fL (80.0-100.0); Mean Platelet Volume 11.3 fL (9.4-12.4); Monocytes # (auto) 0.49 K/uL (0.11-0.59); Monocytes % (auto) 10.5 %; Neutrophils # (auto) 2.38 K/uL (1.40-6.50); Platelet Count 222 K/uL (130-400); RDW Coefficient of Variation 16.3 % (11.5-14.5); RDW Standard Deviation 48.3 fL (36.4-46.3); Red Blood Count 3.76 M/uL (4.20-5.40); White Blood Count 4.67 K/ul (4.8-10.8)
[2022-12-28 21:09] LABS: Troponin I High Sensitivity 13.6 pg/ml (0-14)
[2022-12-28 21:21] LABS: Albumin Level 3.6 gm/dl (3.4-5.0); Anion Gap 8 (3-11); Bilirubin,Total 0.3 mg/dl (0.2-1.0); Calcium 8.1 mg/dl (8.5-10.1); Carbon Dioxide 31 mmol/L (21-32); Chloride 99 mmol/L (98-107); Potassium 3.7 mmol/L (3.5-5.1); Sodium 138 mmol/L (136-145)
[2022-12-28 21:27] LABS: Alanine Aminotransferase 16 U/L (7-52); Albumin Globulin Ratio 1.1 (0.9-2); Alkaline Phosphatase 40 U/L (34-104); Aspartate Aminotransferase 30 U/L (13-39); Blood Urea Nitrogen 14 mg/dl (6-23); Est GFR (African American) 56.1 ml/min; Est GFR (Non-African American) 48.4 ml/min; Globulin 3.2 gm/dl (2.5-4.0); Glucose 115 mg/dl (70-99(Fasting)); Total Protein 6.8 gm/dl (6.0-8.3)
[2022-12-28] MEDS ORDERED: CALCIUM GLUCONATE 1,000 MG/60 ML BAG IV STA (21:29)
[2022-12-28] MEDS ORDERED: dexAMETHasone**PF** 10 MG/ML VIAL IV ONE (21:35)
[2022-12-28 22:20] LABS: Magnesium 1.7 mg/dl (1.7-2.4)
[2022-12-28 22:22] LABS: INR 2.2 (0.9-1.1); Prothrombin Time 22.1 Seconds (9.0-12.0)
[2022-12-28 23:16] LABS: iSTAT Arterial Blood Gas HCO3 25 meg/L (19-24); iSTAT Arterial Blood Gas pCO2 26 mmHg (35-46); iSTAT Arterial Blood Gas pH 7.58 (7.35-7.45); iSTAT Arterial Blood Gas pO2 110 mmHg (80-95); iSTAT Carbon Dioxide 26 mmol/L (24-31); iSTAT Hematocrit 29 % (37-47); iSTAT Hemoglobin 9.9 g/dl (12.0-16.0); iSTAT Potassium 2.8 mmol/L (3.3-5.0); iSTAT Sodium 139 mmol/L (135-144)
--- NOTE | 2022-12-29 02:22 | History & Physical Report ---
Date of Service December 29, 2022 Assessment & Plan (1) COVID-19: Plan: COVID-19 pneumonia. Adequate oxygenation despite initial respite distress upon arrival at the ER. 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 Hold off on additional Decadron for now given O2 sats greater than 94% on room air Basal bolus insulin, ISS BG goal 1 10-1 40, carb count coverage, update hemoglobin A1c PT OT eval DVT prophylaxis. Coumadin INR goal between 2 and 3 DNR Text document was generated using [employer] voice recognition software. It may contain grammatical or spelling errors. Kindly contact undersigned for clarification of any documentation item in question. History of Present Illness Chief Complaint: COVID 19, weakness Primary Care Provider: Christiano Felton MD History obtained from patient, family, and records. Medical history significant for chronic diastolic heart failure (EF 55%, TTE 2021), PSVT, history of PAF/PE on Coumadin, hypertension, valvular heart disease (moderate , mild TR), LUZ MARIA/CPAP noncompliance, pulmonary hypertension, DM2 insulin requiring, left breast cancer status post surgery on Arimidex, chronic anemia (baseline hemoglobin 9-10 ), chronic lymphedema/LE venous stasis ulcers, mood disorder. Last confinement November 2021 for ARF on CKD, UTI, and CHF. Patient has been ill for about 2 weeks. She tested positive for COVID-19 along with her 4 days ago. Patient completed COVID-19 vaccination. Cough symptoms unable to expectorate. Some shortness of breath without chest pain. Diarrhea symptoms currently improving. Increased nausea and weakness. EMS sent to patient's home by PCP after phone call from patient. Patient initially placed on the BiPAP due to respiratory distress. Decadron administered at the ER. Patient currently feeling better. 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 Allergies Allergy/AdvReac Type Severity Reaction Status Date / Time Penicillins Allergy Severe SOB Unverified 11/02/22 11:14 ,THROAT SHUT,COULDN'T BREATHE rosiglitazone Allergy Severe UNKNOWN-RELATED Verified 11/02/22 11:14 POSS TO DVT/PE PER MEDICAL RECORD tramadol Allergy Unknown UNKNOWN Verified 11/02/22 11:14 adhesive AdvReac Mild IRRITATES Verified 11/02/22 11:14 SKIN Home Medications Medication Instructions Recorded Confirmed Type anastrozole 1 mg tablet 1 mg PO DAILY 06/12/20 12/28/22 History cyanocobalamin (vitamin B-12) 1,000 mcg PO DAILY 06/12/20 12/28/22 History 1,000 mcg tablet lisinopril 10 mg tablet 10 mg PO DAILY 06/12/20 12/28/22 History metformin 1,000 mg tablet 1,000 mg PO AMHS 06/12/20 12/28/22 History insulin glargine 100 unit/mL 18 unit subcut HS 10/23/21 12/28/22 History subcutaneous solution (Lantus U-100 Insulin) pantoprazole 40 mg tablet,delayed 40 mg PO DAILYBB 10/23/21 12/28/22 History release warfarin 5 mg tablet 2.5 mg PO UD 10/23/21 12/28/22 History warfarin 5 mg tablet 5 mg PO UD 10/23/21 12/28/22 History amiodarone 200 mg tablet 200 mg PO QAM 06/04/22 12/28/22 History cholecalciferol (vitamin D3) 50 50 mcg PO Q OTHER DAY 06/04/22 12/28/22 History mcg (2,000 unit) capsule diclofenac sodium 1 % topical gel 4 g topical QID PRN Pain 06/04/22 12/28/22 History furosemide 40 mg tablet (Lasix) 40 mg PO AMHS 06/04/22 12/28/22 History hydroxyzine pamoate 25 mg capsule 25 mg PO TID PRN itching 06/04/22 12/28/22 History (Vistaril) insulin glargine 100 unit/mL 34 unit subcut QAM 06/04/22 12/28/22 History subcutaneous solution (Lantus U-100 Insulin) ferrous sulfate 325 mg (65 mg 325 mg PO Q OTHER DAY 12/28/22 12/28/22 History iron) tablet pregabalin 100 mg capsule 100 mg PO AMHS 12/28/22 12/28/22 History Past Med/Surg History Medical History Acute cholecystitis due to biliary calculus Cholangitis Chronic diastolic CHF (congestive heart failure) Chronic venous insufficiency CKD (chronic kidney disease), stage III Depression Diabetes mellitus with neuropathy DM type 2 (diabetes mellitus, type 2) E coli bacteremia History of breast cancer LEFT History of paroxysmal atrial tachycardia History of paroxysmal supraventricular tachycardia Seen by [facility] cardio 12/18/20, " Although historically she has been diagnosed with "PSVT" it sounds as though she has also had a diagnosis of atrial flutter and on review of telemetry monitoring strips it looks like she has runs of PAT. She also has a twelve-lead electrocardiogram looking like atrial fibrillation. She probably has all of these arrhythmias, but she is asymptomatic with them. Although the heart rate is quite fast she was started on amiodarone and without symptoms it is hard to say what degree of control we have. I do not think extensive monitoring is indicated. I would continue amiodarone for now." History of pulmonary embolism ? DATE (REASON FOR WARFARIN) HTN (hypertension) Left anterior fascicular block skilled nursing (current) use of 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 Lymphedema, not elsewhere classified Osteoarthritis PAD (peripheral artery disease) Paroxysmal atrial fibrillation Paroxysmal atrial flutter Poor historian Sleep apnea NO DEVICE USED Vitamin D insufficiency Surgical History H/O left mastectomy History of anesthesia reaction "MY HEART IS EXTRA FAST WHEN I GET ANESTHESIA" History of cataract surgery RT/LEFT History of cholecystectomy History of ERCP History of tonsillectomy History of tooth extraction S/P hysterectomy S/P right rotator cuff repair Family History Grandmother (Paternal) Family history of diabetes mellitus Other Family history non-contributory No family history of adverse response to anesthesia Social History Smoking Status: Never smoker Second Hand Exposure: No; Do You Dip or Chew Tobacco: No; Hx Alcohol Use: No Hx Substance Use: No Preferred Language: Bulgarian Communication Ability: Effective Visual Impairment: Limited Hearing Ability: Normal 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 Or Luggage 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 Required: No Beliefs That Will Affect Care: None marital status: Current Living Situation: Spouse current occupational status: retired Feels Safe at Home: Yes Assistive Devices: Walker Review of Systems Review of Systems: As per HPI, all other systems reviewed and negative Physical Exam Physical Exam: GENERAL: Comfortable, pleasant, morbidly obese, no respiratory distress SKIN: Pallor, warm HEENT: Bespectacled, pale palpebral conjunctivae, no ptosis, dry buccal mucosa, nasal cannula in place NECK : Supple, short neck, no tenderness CHEST : Decreased breath sounds, no tenderness HEART : RRR, systolic murmur ABDOMEN: Some distention, nontender EXTREMITIES : Bilateral LE swelling, no LE tenderness, no other conspicuous deformities noted NEUROLOGIC : Coherent, no facial asymmetry, no other gross focality Results & Data Results & Data ([facility]) Vital Signs (Past 12 Hours) Vital Signs Temp Pulse Pulse Resp BP BP Pulse Ox 12/29/22 01:00 68 17 99 12/29/22 00:00 67 100 12/28/22 23:26 67 22 99 12/28/22 23:26 156/56 H 12/29/22 00:52 75 12/28/22 23:11 83 10 L 98 12/28/22 22:00 80 20 97 12/28/22 21:00 100 12/28/22 20:00 100 12/28/22 19:31 103/68 12/28/22 19:31 21 100 12/28/22 19:24 63 31 H 100 12/28/22 23:26 65 22 156/56 H 99 12/28/22 20:22 96 H 25 H 100 12/28/22 18:58 36.3 C L 67 20 135/66 97 O2 Del Method O2 Flow Rate FiO2 12/29/22 01:00 12/29/22 00:00 12/28/22 23:26 12/28/22 23:26 12/29/22 00:52 12/28/22 23:11 02/14/23 22:00 12/28/22 21:00 12/28/22 20:00 12/28/22 19:31 12/28/22 19:31 12/28/22 19:24 12/28/22 23:26 Nasal Cannula 2 12/28/22 20:22 High Flow Nasal Cannula 35 40 12/28/22 18:58 Nasal Cannula 2 Laboratory Results Laboratory Results WBC 4.67 K/ul (4.8-10.8) L 12/28/22 20:06 RBC 3.76 M/uL (4.20-5.40) L 12/28/22 20:06 Hgb 9.5 g/dl (12.0-16.0) L 12/28/22 20:06 POC Hgb 9.9 g/dl (12.0-16.0) L 12/28/22 22:58 Hct 30.7 % (37.0-47.0) L 12/28/22 20:06 POC Hct 29 % (37-47) L 12/28/22 22:58 MCV 81.6 fL (80.0-100.0) 12/28/22 20:06 MCH 25.3 pg (25.0-34.0) 12/28/22 20:06 MCHC 30.9 g/dL (32.0-36.0) L 12/28/22 20:06 RDW Std Deviation 48.3 fL (36.4-46.3) H 12/28/22 20:06 RDW Coeff of [place] 16.3 % (11.5-14.5) H 12/28/22 20:06 Plt Count 222 K/uL (130-400) 12/28/22 20:06 MPV 11.3 fL (9.4-12.4) 12/28/22 20:06 Immature Gran % (Auto) 2.1 % 12/28/22 20:06 Neut % (Auto) 51.0 % 12/28/22 20:06 Lymph % (Auto) 34.9 % 12/28/22 20:06 [place] % (Auto) 10.5 % 12/28/22 20:06 Eos % (Auto) 0.9 % 12/28/22 20:06 Baso % (Auto) 0.6 % 12/28/22 20:06 Neut # (Auto) 2.38 K/uL (1.40-6.50) 12/28/22 20:06 Lymph # (Auto) 1.63 K/uL (1.2-3.4) 12/28/22 20:06 [place] # (Auto) 0.49 K/uL (0.11-0.59) 12/28/22 20:06 Eos # (Auto) 0.04 K/uL (0-0.50) 12/28/22 20:06 Baso # (Auto) 0.03 K/uL (0-0.2) 12/28/22 20:06 Immature Gran # (Auto) 0.10 K/uL (0.01-0.20) 12/28/22 20:06 PT 22.1 Seconds (9.0-12.0) H 12/28/22 20:06 INR 2.2 (0.9-1.1) H 12/28/22 20:06 POC pH 7.58 (7.35-7.45) H* 12/28/22 22:58 POC pCO2 26 mmHg (35-46) L 12/28/22 22:58 POC pO2 110 mmHg (80-95) H 12/28/22 22:58 POC HCO3 25 pedro/L (19-24) H 12/28/22 22:58 POC Total CO2 26 mmol/L (24-31) 12/28/22 22:58 POC Base Excess 3.0 pedro/L (-9-1.8) H 12/28/22 22:58 POC ABG O2 Sat 99.0 % (90-95) H 12/28/22 22:58 POC Sodium 139 mmol/L (135-144) 12/28/22 22:58 Sodium 138 mmol/L (136-145) 12/28/22 20:06 POC Potassium 2.8 mmol/L (3.3-5.0) L 12/28/22 22:58 Potassium 3.7 mmol/L (3.5-5.1) 12/28/22 20:06 Chloride 99 mmol/L (98-107) 12/28/22 20:06 Carbon Dioxide 31 mmol/L (21-32) 12/28/22 20:06 Anion Gap 8 (3-11) 12/28/22 20:06 BUN 14 mg/dl (6-23) 12/28/22 20:06 Creatinine 1.08 mg/dl (0.6-1.2) 12/28/22 20:06 Est Cr Clr Drug Dosing Not Reportable 12/28/22 20:06 Est GFR ( Amer) 56.1 ml/min 12/28/22 20:06 Est GFR (Non-Af Amer) 48.4 ml/min 12/28/22 20:06 BUN/Creatinine Ratio 13.0 (10-20) 12/28/22 20:06 Glucose 115 mg/dl (70-99(Fasting)) H 12/28/22 20:06 Calcium 8.1 mg/dl (8.5-10.1) L 12/28/22 20:06 Magnesium 1.7 mg/dl (1.7-2.4) 12/28/22 20:06 Total Bilirubin 0.3 mg/dl (0.2-1.0) 12/28/22 20:06 AST 30 U/L (13-39) 12/28/22 20:06 ALT 16 U/L (7-52) 12/28/22 20:06 Alkaline Phosphatase 40 U/L (34-104) 12/28/22 20:06 Troponin I High Sens 13.6 pg/ml (0-14) 12/28/22 20:06 Total Protein 6.8 gm/dl (6.0-8.3) 12/28/22 20:06 Albumin 3.6 gm/dl (3.4-5.0) 12/28/22 20:06 Globulin 3.2 gm/dl (2.5-4.0) 12/28/22 20:06 Albumin/Globulin Ratio 1.1 (0.9-2) 12/28/22 20:06 TSH 1.635 uIu/ml (0.300-4.500) 12/28/22 20:06 SARS-CoV-2 (PCR) POSITIVE (Negative) A* 12/28/22 19:20 Influenza Type A (PCR) Negative (Neg) 12/28/22 19:20 Influenza Type B (PCR) Negative (Neg) 12/28/22 19:20 RSV (RT-PCR) Negative (Neg) 12/28/22 19:20 Impressions Chest X-Ray 12/28/22 19:12 XR chest 1V portable CLINICAL HISTORY: weakness COMPARISON STUDY: Chest CT October 24, 2021 and chest radiograph October 27, 2021. FINDINGS: There is no pneumothorax or pleural effusion. Opacity along the right heart border likely reflects a combination of atelectasis and epicardial fat pad. Linear left midlung opacity reflects atelectasis. No consolidation to suggest pneumonia. Cardiomegaly is unchanged. No evidence for overt pulmonary edema. IMPRESSION: No acute cardiopulmonary findings. Cardiomegaly. ACT 112: Negative or not required by law. Electronically signed by: Stanislav Gonzales M.D. 12/28/2022 7:45 PM Diagnostic Findings EKG as per my interpretation : Rate 65, NSR, LAD, LAFB, LVH T wave abnormalities lateral leads
[2022-12-29] MEDS ORDERED: LANTUS PER UNIT CHARGE SQ STA (02:39)
[2022-12-29] MEDS ORDERED: PROMETHAZINE HCL 12.5 MG in SODIUM CHLORIDE 0.9% 50 ML IV PRN (02:49)
[2022-12-29] MEDS: MAGNESIUM SULFATE / D5W 1 GM/100 ML BAG IV SCH ×2 (03:35→06:34)
[2022-12-29] MEDS ORDERED: CARBOHYDRATES FOR HYPOGLYCEMIA PO PRN (05:30)
[2022-12-29] MEDS ORDERED: DICLOFENAC SOD 1% GEL 100 GM TUBE EXT PRN (05:30)
[2022-12-29] MEDS ORDERED: GLUCAGON FOR INJ 1 MG VIAL SQ PRN (05:30)
[2022-12-29] MEDS ORDERED: GLUCOSE 40% GEL 15 GM TUBE PO PRN (05:30)
[2022-12-29] MEDS ORDERED: DEXTROSE 50% 50 ML SYRINGE IV PRN (05:30)
[2022-12-29] MEDS ORDERED: GLUCOSE 10 TAB/TUBE PO PRN (05:30)
[2022-12-29] MEDS ORDERED: BENZONATATE 100 MG CAPSULE PO PRN (05:30)
[2022-12-29] MEDS: INSULIN ASPART PER UNIT CHARGE SC SCH ×4 (06:34→21:38)
[2022-12-29] MEDS: PANTOprazole 40 MG TAB PO SCH (06:43)
[2022-12-29 07:38] LABS: Basophils # (auto) 0.01 K/uL (0-0.2); Basophils % (auto) 0.3 %; Hematocrit (blood only) 31.1 % (37.0-47.0); Hemoglobin 9.7 g/dl (12.0-16.0); Immature Granulocytes # (auto) 0.13 K/uL (0.01-0.20); Immature Granulocytes % (auto) 4.5 %; Lymphocytes # (auto) 0.43 K/uL (1.2-3.4); Mean Corpuscular Hemoglobin 25.5 pg (25.0-34.0); Mean Corpuscular Hgb Conc 31.2 g/dL (32.0-36.0); Mean Corpuscular Volume 81.8 fL (80.0-100.0); Mean Platelet Volume 11.6 fL (9.4-12.4); Monocytes % (auto) 3.5 %; Neutrophils % (auto) 76.7 %; Platelet Count 199 K/uL (130-400); RDW Coefficient of Variation 16.2 % (11.5-14.5); RDW Standard Deviation 48.2 fL (36.4-46.3); White Blood Count 2.87 K/ul (4.8-10.8)
[2022-12-29 08:44] LABS: BUN Creatinine Ratio 12.5 (10-20); Calcium 8.3 mg/dl (8.5-10.1); Creatinine Clr Calc Pharmacy 53.5 ml/min; Est GFR (African American) 53.7 ml/min; Est GFR (Non-African American) 46.4 ml/min; Potassium 3.6 mmol/L (3.5-5.1)
[2022-12-29] MEDS: LANTUS PER UNIT CHARGE SQ SCH ×2 (08:46→21:38)
[2022-12-29] MEDS ORDERED: guaiFENesin 600 MG TABCR PO SCH (09:00)
[2022-12-29] MEDS: POTASSIUM CHLORIDE CRTAB 20 MEQ TABCR PO SCH ×2 (09:05→21:05)
[2022-12-29] MEDS: PREGABALIN 100 MG CAP PO SCH ×2 (09:05→21:05)
[2022-12-29] MEDS: ACETAMINOPHEN 325 MG TAB PO PRN ×4 (09:05→21:04)
[2022-12-29] MEDS: FERROUS SULFATE 325 MG TAB PO SCH (09:06)
[2022-12-29] MEDS: lisinopril 10 MG TAB PO SCH (09:06)
[2022-12-29] MEDS: FUROSEMIDE 40 MG TAB PO SCH (09:06)
[2022-12-29] MEDS: AMIODARONE 200 MG TAB PO SCH (09:06)
[2022-12-29 09:11] LABS: Estimated Average Glucose 146 mg/dl; Hemoglobin A1C 6.7 % (4.5-5.6)
[2022-12-29] MEDS: ANASTROZOLE 1 MG TAB PO SCH (09:15)
--- NOTE | 2022-12-29 09:55 | Hospitalist Progress Note ---
Date of Service December 29, 2022 Assessment & Plan Admission and Anticipated Discharge Date Admission Date: December 29, 2022 Results & Data Results & Data ([facility]) Vital Signs (Past 12 Hours) Vital Signs Temp Pulse Pulse Resp BP BP Pulse Ox 12/29/22 06:00 79 12/29/22 05:52 67 12/29/22 05:35 12/29/22 05:35 36.4 C L 70 18 116/70 97 12/29/22 05:30 36.4 C L 70 18 116/70 97 12/29/22 04:28 63 20 172/61 H 96 12/29/22 03:39 67 12/29/22 03:19 64 22 172/61 H 98 12/29/22 01:00 68 17 99 12/29/22 00:00 67 100 12/28/22 23:26 67 22 99 12/28/22 23:26 156/56 H 12/28/22 23:20 75 12/28/22 23:11 83 10 L 98 12/28/22 22:00 80 20 97 12/28/22 23:26 65 22 156/56 H 99 O2 Del Method O2 Flow Rate 12/29/22 06:00 12/29/22 05:52 12/29/22 05:35 Nasal Cannula 2 12/29/22 05:35 Room Air 2 12/29/22 05:30 Nasal Cannula 2 12/29/22 04:28 Nasal Cannula 2 12/29/22 03:39 12/29/22 03:19 Nasal Cannula 2 12/29/22 01:00 12/29/22 00:00 12/28/22 23:26 12/28/22 23:26 12/28/22 23:20 12/28/22 23:11 12/28/22 22:00 12/28/22 23:26 Nasal Cannula 2
--- NOTE | 2022-12-29 09:55 | Communication Note ---
Date of Service: December 29, 2022 Patient seen and examined Admitted this morning Reports cough dry, generalized weakness Reports shortness of breath is improved Reports no nausea at this time and diarrhea is improving. Exam notable for obese woman in no distress, on nasal cannula 2L/min (her baseline), diminished breath sounds. CXR did not show any acute abnormalities COVID 19 infection Currently at her baseline oxygen Got dexamethasone in ER and has been on hold since Monitor Continue antitussives, supportive care Other plans as detailed in H&P this morning
[2022-12-29 10:35] LABS: INR 2.1 (0.9-1.1); Prothrombin Time 21.3 Seconds (9.0-12.0)
[2022-12-29] MEDS: MICONAZOLE NITRATE POWDER 85 GM EXT PRN (13:16)
[2022-12-29 13:42] LABS: Appearance Urine Turbid (Clear); Bacteria Urine Automated 4+ (Negative); Bilirubin Urine Negative (Negative); Blood Urine Negative (Negative); Color Urine Yellow; Epithelial Cell Urine Auto 20-30 /lpf (0-5); Glucose Urine UA Trace (Negative); Ketones Urine Trace (Negative); Leukocyte Esterase Urine 1+ (Negative); Nitrite Urine Positive (Negative); Protein Urine Trace (Negative); Specific Gravity Urine 1.013 (1.000-1.030); Urobilinogen Urine Negative (Negative); WBC Urine Automated >30 /hpf (0-5)
[2022-12-29 14:06] LABS: RBC Urine Automated 0-4 /hpf (0-4)
[2022-12-29] MEDS: CALCIUM CARBONATE 500 MG CHEWABLE TAB PO PRN ×2 (14:57→21:02)
[2022-12-29] MEDS: WARFARIN SOD 5 MG TAB PO SCH (16:24)
[2022-12-29] MEDS: guaiFENesin 600 MG TABCR PO SCH (21:03)
--- NOTE | 2022-12-29 22:10 | Electrocardiogram Report ---
Test Reason : Blood Pressure : / mmHG Vent. Rate : 064 BPM Atrial Rate : 064 BPM P-R Int : 134 ms QRS Dur : 140 ms QT Int : 470 ms P-R-T Axes : 039 -44 125 degrees QTc Int : 484 ms Poor data quality, interpretation may be adversely affected Normal sinus rhythm Left axis deviation Left ventricular hypertrophy with QRS widening T wave abnormality, consider lateral ischemia Abnormal ECG When compared with ECG of 23-OCT-2021 13:39, Right bundle branch block is no longer Present T wave inversion now evident in Lateral leads Confirmed by Christian Jasso ([id number]) on 12/29/2022 10:09:59 PM Referred By: REFERRED SELF Confirmed By:Christian Jasso
[2022-12-30] MEDS: PANTOprazole 40 MG TAB PO SCH (05:52)
[2022-12-30 07:09] LABS: Hemoglobin 9.2 g/dl (12.0-16.0); Mean Corpuscular Hgb Conc 31.7 g/dL (32.0-36.0); Mean Corpuscular Volume 81.9 fL (80.0-100.0); Mean Platelet Volume 11.2 fL (9.4-12.4); Platelet Count 216 K/uL (130-400); RDW Coefficient of Variation 16.4 % (11.5-14.5); RDW Standard Deviation 49.2 fL (36.4-46.3); Red Blood Count 3.54 M/uL (4.20-5.40); White Blood Count 5.96 K/ul (4.8-10.8)
[2022-12-30 07:30] LABS: INR 2.6 (0.9-1.1); Prothrombin Time 26.1 Seconds (9.0-12.0)
[2022-12-30 07:33] LABS: BUN Creatinine Ratio 16.4 (10-20); Calcium 8.3 mg/dl (8.5-10.1); Est GFR (African American) 54.9 ml/min; Est GFR (Non-African American) 47.4 ml/min; Potassium 3.5 mmol/L (3.5-5.1)
[2022-12-30] MEDS: ACETAMINOPHEN 325 MG TAB PO PRN (08:10)
[2022-12-30] MEDS: INSULIN ASPART PER UNIT CHARGE SC SCH ×4 (09:11→20:28)
[2022-12-30] MEDS: LANTUS PER UNIT CHARGE SQ SCH ×2 (09:11→20:29)
[2022-12-30] MEDS: POTASSIUM CHLORIDE CRTAB 20 MEQ TABCR PO SCH ×2 (09:12→21:33)
[2022-12-30] MEDS: PREGABALIN 100 MG CAP PO SCH ×2 (09:13→21:33)
[2022-12-30] MEDS: AMIODARONE 200 MG TAB PO SCH (09:13)
[2022-12-30] MEDS: ANASTROZOLE 1 MG TAB PO SCH (09:13)
[2022-12-30] MEDS: DEXTROMETHORPHAN POLYMR COMPLX 60 MG/10 ML UDP PO PRN ×2 (09:13→21:33)
[2022-12-30] MEDS: FUROSEMIDE 40 MG TAB PO SCH (09:14)
[2022-12-30] MEDS: lisinopril 10 MG TAB PO SCH (09:14)
[2022-12-30] MEDS: guaiFENesin 600 MG TABCR PO SCH ×2 (09:15→20:37)
[2022-12-30] MEDS ORDERED: cefTRIAXone SODIUM 1,000 MG in DEXTROSE 5% AD-VAN 50 ML IV SCH (09:15)
[2022-12-30] MEDS: cefTRIAXone SODIUM 2,000 MG in DEXTROSE 5% 50 ML IV SCH (10:34)
--- NOTE | 2022-12-30 11:10 | Hospitalist Progress Note ---
Date of Service December 30, 2022 Assessment & Plan (1) COVID-19: Plan: COVID-19 infection CXR did not show any consolidation Got dexamethasone in ER Has been held since as patient has been on her baseline oxygen requirement Continue antitussives Continue guaifenesin ER 1200mg BID Tessalon prn changed to dextromethorphan prn Continue oxygen supplementation Encourage activity Urinary tract infection Urine culture growing GNR Confirmed with pharm, patient had tolerated cephalosporins multiple times in the past Ceftriaxone IV. Follow up speciation Chronic diastolic heart failure (EF 55%, TTE 2021) Valvular heart disease (moderate , mild TR) Continue home diuretic History PSVT, History of PAF/PE Continue coumadin INR therapeutic Continue home amiodarone LUZ MARIA/CPAP noncompliance Pulmonary hypertension DM2 On insulin Hemoglobin A1c of 6.7 on 12/28/22 Left breast cancer Status post surgery On Arimidex Currently in remission per patient Chronic anemia Hemoglobin at baseline PT OT eval noted DVT prophylaxis. Coumadin DNR Possible DC in 24-48h Admission and Anticipated Discharge Date Admission Date: December 29, 2022 Subjective Patient seen and examined Reports feeling better today Still reports cough. Stated she is ok with the guaifenesin but will like a different prn from tessalon perles Denied any chest pain, shortness of breath Currently on her baseline oxygen 2l/min with sat in 95%-97% Denied fever, chills Reports weakness is improving Denied nausea, vomiting, abd pain, diarrhea Denied dysuria, urgency. Was having freq overnight and UA suggestive of UTI Physical Exam Constitutional: + well hydrated and + obese; no acute distress Eyes: PERRL, conjunctivae normal, anicteric sclerae ENMT: external ear and nose normal, oropharynx normal Respiratory: normal respiratory effort; no respiratory distress Auscultation: + diminished lung sounds Cardiovascular: Rate/Rhythm: regular rate and regular rhythm S1 S2 Gastrointestinal (Abdomen): normal bowel sounds, soft, nontender, no hepatosplenomegaly Musculoskeletal: +pedal edema Neurologic: PERRL, EOMI, accommodation nl, no face palsy, no dysarthria Psychiatric: A+Ox3, euthymic affect Results & Data Results & Data ([facility]) Vital Signs (Past 12 Hours) Vital Signs Temp Pulse Pulse Resp BP Pulse Ox O2 Del Method 12/30/22 07:53 36.6 C 69 16 147/72 H 94 Nasal Cannula 12/30/22 07:15 72 12/30/22 04:00 36.7 C 62 20 114/71 93 Nasal Cannula 12/30/22 00:00 63 O2 Flow Rate 12/30/22 07:53 2 12/30/22 07:15 12/30/22 04:00 2 12/30/22 00:00 Laboratory Results Abnormal lab results 12/29/22 12/29/22 12/29/22 Range/Units 13:25 16:43 20:31 RBC (4.20-5.40) M/uL Hgb (12.0-16.0) g/dl Hct (37.0-47.0) % MCHC (32.0-36.0) g/dL RDW Std Deviation (36.4-46.3) fL RDW Coeff of [place] (11.5-14.5) % PT (9.0-12.0) Seconds INR (0.9-1.1) Glucose (70-99(Fasting)) mg/dl POC Glucose 215 H 197 H (70-99) mg/dl Calcium (8.5-10.1) mg/dl Urine WBC (Auto) >30 H (0-5) /hpf U Epithel Cells (Auto) 20-30 H (0-5) /lpf Urine Bacteria (Auto) 4+ H (Negative) 12/30/22 12/30/22 12/30/22 Range/Units 06:36 06:36 06:36 RBC 3.54 L (4.20-5.40) M/uL Hgb 9.2 L (12.0-16.0) g/dl Hct 29.0 L (37.0-47.0) % MCHC 31.7 L (32.0-36.0) g/dL RDW Std Deviation 49.2 H (36.4-46.3) fL RDW Coeff of [place] 16.4 H (11.5-14.5) % PT 26.1 H (9.0-12.0) Seconds INR 2.6 H (0.9-1.1) Glucose 191 H (70-99(Fasting)) mg/dl POC Glucose (70-99) mg/dl Calcium 8.3 L (8.5-10.1) mg/dl Urine WBC (Auto) (0-5) /hpf U Epithel Cells (Auto) (0-5) /lpf Urine Bacteria (Auto) (Negative) 12/30/22 12/30/22 Range/Units 07:51 11:30 RBC (4.20-5.40) M/uL Hgb (12.0-16.0) g/dl Hct (37.0-47.0) % MCHC (32.0-36.0) g/dL RDW Std Deviation (36.4-46.3) fL RDW Coeff of [place] (11.5-14.5) % PT (9.0-12.0) Seconds INR (0.9-1.1) Glucose (70-99(Fasting)) mg/dl POC Glucose 193 H 186 H (70-99) mg/dl Calcium (8.5-10.1) mg/dl Urine WBC (Auto) (0-5) /hpf U Epithel Cells (Auto) (0-5) /lpf Urine Bacteria (Auto) (Negative)
[2022-12-30] MEDS: WARFARIN SOD 5 MG TAB PO SCH (17:07)
[2022-12-31] MEDS: PANTOprazole 40 MG TAB PO SCH (05:32)
[2022-12-31] MEDS: ACETAMINOPHEN 325 MG TAB PO PRN ×3 (08:13→17:11)
[2022-12-31] MEDS: MICONAZOLE NITRATE POWDER 85 GM EXT PRN (08:13)
[2022-12-31] MEDS: CALCIUM CARBONATE 500 MG CHEWABLE TAB PO PRN ×2 (08:14→21:22)
[2022-12-31] MEDS: POTASSIUM CHLORIDE CRTAB 20 MEQ TABCR PO SCH ×2 (08:14→21:22)
[2022-12-31] MEDS: PREGABALIN 100 MG CAP PO SCH ×2 (08:14→21:22)
[2022-12-31] MEDS: INSULIN ASPART PER UNIT CHARGE SC SCH ×4 (08:15→21:51)
[2022-12-31] MEDS: guaiFENesin 600 MG TABCR PO SCH ×2 (08:16→21:23)
[2022-12-31] MEDS: DEXTROMETHORPHAN POLYMR COMPLX 60 MG/10 ML UDP PO PRN (08:16)
[2022-12-31] MEDS: FUROSEMIDE 40 MG TAB PO SCH (08:17)
[2022-12-31] MEDS: AMIODARONE 200 MG TAB PO SCH (08:17)
[2022-12-31] MEDS: lisinopril 10 MG TAB PO SCH (08:17)
[2022-12-31] MEDS: FERROUS SULFATE 325 MG TAB PO SCH (08:18)
[2022-12-31] MEDS: ANASTROZOLE 1 MG TAB PO SCH (08:29)
[2022-12-31] MEDS: LANTUS PER UNIT CHARGE SQ SCH ×2 (08:29→21:52)
[2022-12-31 08:42] LABS: Hematocrit (blood only) 30.5 % (37.0-47.0); Hemoglobin 9.3 g/dl (12.0-16.0); Mean Corpuscular Hemoglobin 25.4 pg (25.0-34.0); Mean Corpuscular Hgb Conc 30.5 g/dL (32.0-36.0); Mean Corpuscular Volume 83.3 fL (80.0-100.0); Mean Platelet Volume 11.3 fL (9.4-12.4); Platelet Count 222 K/uL (130-400); RDW Coefficient of Variation 16.5 % (11.5-14.5); RDW Standard Deviation 50.3 fL (36.4-46.3); Red Blood Count 3.66 M/uL (4.20-5.40); White Blood Count 5.61 K/ul (4.8-10.8)
[2022-12-31 08:55] LABS: BUN Creatinine Ratio 14.4 (10-20); Calcium 8.2 mg/dl (8.5-10.1); Creatinine Clr Calc Pharmacy 58.1 ml/min; Est GFR (African American) 58.8 ml/min; Est GFR (Non-African American) 50.7 ml/min; Potassium 3.9 mmol/L (3.5-5.1)
[2022-12-31 09:04] LABS: INR 3.1 (0.9-1.1); Prothrombin Time 31.4 Seconds (9.0-12.0)
[2022-12-31] MEDS: cefTRIAXone SODIUM 2,000 MG in DEXTROSE 5% 50 ML IV SCH (09:21)
[2022-12-31] MEDS ORDERED: ALBUTEROL 0.083% NEBU SOLN 3 ML VIAL NEB PRN (09:35)
--- NOTE | 2022-12-31 11:37 | Hospitalist Progress Note ---
Date of Service December 31, 2022 Assessment & Plan (1) COVID-19: Plan: COVID-19 infection CXR did not show any consolidation Got dexamethasone in ER Has been held since as patient has been on her baseline oxygen requirement Continue supportive care Continue guaifenesin ER 1200mg BID, dextromethorphan prn Nebs prn Continue oxygen supplementation Encourage activity Urinary tract infection Urine culture growing pansensitive E coli Change ceftriaxone to cefdinir Chronic diastolic heart failure (EF 55%, TTE 2021) Valvular heart disease (moderate , mild TR) Continue home diuretic History PSVT, History of PAF/PE INR is 3.1 today. Hold today's warfarin and continue tomorrow Continue home amiodarone LUZ MARIA/CPAP noncompliance Pulmonary hypertension DM2 On insulin Hemoglobin A1c of 6.7 on 12/28/22 Left breast cancer Status post surgery On Arimidex Currently in remission per patient Chronic anemia Hemoglobin at baseline PT OT eval noted DVT prophylaxis. Coumadin DNR Plan for DC tomorrow Admission and Anticipated Discharge Date Admission Date: December 29, 2022 Subjective Patient seen and examined Reports cough Report weakness is improving; feeling better but stated she does not feel strong enough to go home today Denied any chest pain, shortness of breath Currently on her baseline oxygen 2l/min with sat in 95%-97% Denied fever, chills Denied nausea, vomiting, abd pain, diarrhea Denied dysuria, urgency. No freq this morning Physical Exam Constitutional: + well hydrated and + obese; no acute distress Eyes: PERRL, conjunctivae normal, anicteric sclerae ENMT: external ear and nose normal, oropharynx normal Respiratory: normal respiratory effort; no respiratory distress Auscultation: + diminished lung sounds Cardiovascular: Rate/Rhythm: regular rate and regular rhythm S1 S2 Gastrointestinal (Abdomen): normal bowel sounds, soft, nontender, no hepatosplenomegaly Musculoskeletal: +pedal edema Neurologic: PERRL, EOMI, accommodation nl, no face palsy, no dysarthria Psychiatric: A+Ox3, euthymic affect Results & Data Results & Data ([facility]) Vital Signs (Past 12 Hours) Vital Signs Temp Pulse Pulse Resp BP Pulse Ox O2 Del Method 12/31/22 11:03 36.5 C 94 H 20 103/61 95 Nasal Cannula 12/31/22 07:00 80 12/31/22 08:00 Nasal Cannula 12/31/22 07:30 36.8 C 73 20 102/67 96 Room Air 12/31/22 05:55 59 L 12/31/22 02:22 36.7 C 66 18 107/62 97 Nasal Cannula 12/30/22 23:48 65 O2 Flow Rate 12/31/22 11:03 2 12/31/22 07:00 12/31/22 08:00 2 12/31/22 07:30 12/31/22 05:55 12/31/22 02:22 2 12/30/22 23:48 Laboratory Results Abnormal lab results 12/30/22 12/30/22 12/31/22 Range/Units 15:54 19:54 07:11 RBC (4.20-5.40) M/uL Hgb (12.0-16.0) g/dl Hct (37.0-47.0) % MCHC (32.0-36.0) g/dL RDW Std Deviation (36.4-46.3) fL RDW Coeff of [place] (11.5-14.5) % PT (9.0-12.0) Seconds INR (0.9-1.1) Glucose (70-99(Fasting)) mg/dl POC Glucose 145 H 184 H 187 H (70-99) mg/dl Calcium (8.5-10.1) mg/dl 12/31/22 12/31/22 12/31/22 Range/Units 07:42 07:42 07:42 RBC 3.66 L (4.20-5.40) M/uL Hgb 9.3 L (12.0-16.0) g/dl Hct 30.5 L (37.0-47.0) % MCHC 30.5 L (32.0-36.0) g/dL RDW Std Deviation 50.3 H (36.4-46.3) fL RDW Coeff of [place] 16.5 H (11.5-14.5) % PT 31.4 H (9.0-12.0) Seconds INR 3.1 H (0.9-1.1) Glucose 181 H (70-99(Fasting)) mg/dl POC Glucose (70-99) mg/dl Calcium 8.2 L (8.5-10.1) mg/dl 12/31/22 Range/Units 11:56 RBC (4.20-5.40) M/uL Hgb (12.0-16.0) g/dl Hct (37.0-47.0) % MCHC (32.0-36.0) g/dL RDW Std Deviation (36.4-46.3) fL RDW Coeff of [place] (11.5-14.5) % PT (9.0-12.0) Seconds INR (0.9-1.1) Glucose (70-99(Fasting)) mg/dl POC Glucose 197 H (70-99) mg/dl Calcium (8.5-10.1) mg/dl
[2022-12-31] MEDS ORDERED: WARFARIN SOD 2.5 MG TAB PO SCH (16:00)
[2023-01-01] MEDS: PANTOprazole 40 MG TAB PO SCH (04:59)
[2023-01-01 07:35] LABS: Hematocrit (blood only) 29.1 % (37.0-47.0); Hemoglobin 8.7 g/dl (12.0-16.0); Mean Corpuscular Hemoglobin 25.1 pg (25.0-34.0); Mean Corpuscular Hgb Conc 29.9 g/dL (32.0-36.0); Mean Corpuscular Volume 84.1 fL (80.0-100.0); Mean Platelet Volume 11.6 fL (9.4-12.4); Platelet Count 207 K/uL (130-400); RDW Coefficient of Variation 16.7 % (11.5-14.5); RDW Standard Deviation 50.6 fL (36.4-46.3); Red Blood Count 3.46 M/uL (4.20-5.40); White Blood Count 4.65 K/ul (4.8-10.8)
[2023-01-01 07:53] LABS: BUN Creatinine Ratio 15.6 (10-20); Calcium 8.2 mg/dl (8.5-10.1); Creatinine Clr Calc Pharmacy 62.8 ml/min; Est GFR (African American) 64.7 ml/min; Est GFR (Non-African American) 55.9 ml/min
[2023-01-01 08:11] LABS: INR 3.1 (0.9-1.1); Prothrombin Time 30.8 Seconds (9.0-12.0)
[2023-01-01] MEDS: INSULIN ASPART PER UNIT CHARGE SC SCH ×2 (08:15→12:25)
[2023-01-01] MEDS: POTASSIUM CHLORIDE CRTAB 20 MEQ TABCR PO SCH (08:28)
[2023-01-01] MEDS: cefTRIAXone SODIUM 2,000 MG in DEXTROSE 5% 50 ML IV SCH (08:28)
[2023-01-01] MEDS: PREGABALIN 100 MG CAP PO SCH (08:28)
[2023-01-01] MEDS: AMIODARONE 200 MG TAB PO SCH (08:28)
[2023-01-01] MEDS: lisinopril 10 MG TAB PO SCH (08:29)
[2023-01-01] MEDS: guaiFENesin 600 MG TABCR PO SCH (08:30)
[2023-01-01] MEDS: FUROSEMIDE 40 MG TAB PO SCH (08:30)
[2023-01-01] MEDS: LANTUS PER UNIT CHARGE SQ SCH (09:03)
[2023-01-01] MEDS: ANASTROZOLE 1 MG TAB PO SCH (09:03)
--- NOTE | 2023-01-01 09:36 | Discharge Summary ---
Discharge Summary Date of Service January 01, 2023 Notes For Next Care Provider Follow up recovery Continue management of chronic medical problems Medication Changes From Visit Discharged on guaifenesin, dextromethorphan for cough and prn albuterol inhaler Continue home medication including home diuretics 2 more days of cefdinir for urinary infection Admission HPI Per Admitting Provider History obtained from patient, family, and records. Medical history significant for chronic diastolic heart failure (EF 55%, TTE 2021), PSVT, history of PAF/PE on Coumadin, hypertension, valvular heart disease (moderate , mild TR), LUZ MARIA/CPAP noncompliance, pulmonary hypertension, DM2 insulin requiring, left breast cancer status post surgery on Arimidex, chronic anemia (baseline hemoglobin 9-10 ), chronic lymphedema/LE venous stasis ulcers, mood disorder. Last confinement November 2021 for ARF on CKD, UTI, and CHF. Patient has been ill for about 2 weeks. She tested positive for COVID-19 along with her 4 days ago. Patient completed COVID-19 vaccination. Cough symptoms unable to expectorate. Some shortness of breath without chest pain. Diarrhea symptoms currently improving. Increased nausea and weakness. EMS sent to patient's home by PCP after phone call from patient. Patient initially placed on the BiPAP due to respiratory distress. Decadron administered at the ER. Patient currently feeling better. 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 Admission Exam Per Admitting Provider GENERAL: Comfortable, pleasant, morbidly obese, no respiratory distress SKIN: Pallor, warm HEENT: Bespectacled, pale palpebral conjunctivae, no ptosis, dry buccal mucosa, nasal cannula in place NECK : Supple, short neck, no tenderness CHEST : Decreased breath sounds, no tenderness HEART : RRR, systolic murmur ABDOMEN: Some distention, nontender EXTREMITIES : Bilateral LE swelling, no LE tenderness, no other conspicuous deformities noted NEUROLOGIC : Coherent, no facial asymmetry, no other gross focality Principal Dx & Hospital Course #1 = Principal Diagnosis (1) COVID-19: COVID-19 infection CXR did not show any consolidation Got dexamethasone in ER Has not received any COVID specific therapies as patient has been on her baseline oxygen requirement since Managed with supportive care Continue guaifenesin ER 1200mg BID, dextromethorphan prn cough Continue home oxygen supplementation Albuterol inh prn shortness of breath Urinary tract infection Urine culture growing pansensitive E coli Got ceftriaxone inpatient. Changed to cefdinir on discharge to complete treatment Chronic diastolic heart failure (EF 55%, TTE 2021) Valvular heart disease (moderate , mild TR) Continue home diuretic History PSVT, History of PAF/PE INR is 3.1 today. Warfarin was held yesterday Continue home warfarin and follow up anticoagulation clinic Continue home amiodarone LUZ MARIA/CPAP noncompliance Pulmonary hypertension DM2 Continue home insulin Hemoglobin A1c of 6.7 on 12/28/22 Left breast cancer Status post surgery On Arimidex Currently in remission per patient Chronic anemia Hemoglobin at baseline Discharge Exam Constitutional + well hydrated and + obese; no acute distress Eyes PERRL, conjunctivae normal, anicteric sclerae ENMT external ear and nose normal, oropharynx normal Respiratory normal respiratory effort; no respiratory distress Auscultation: + diminished lung sounds Cardiovascular Rate/Rhythm: regular rate and regular rhythm S1 S2 Gastrointestinal (Abdomen) normal bowel sounds, soft, nontender, no hepatosplenomegaly Musculoskeletal +pedal edema Neurologic PERRL, EOMI, accommodation nl, no face palsy, no dysarthria Psychiatric A+Ox3, euthymic affect Updated Medication List Medication Instructions Recorded Confirmed Type anastrozole 1 mg tablet 1 mg PO DAILY 06/12/20 12/28/22 History cyanocobalamin (vitamin B-12) 1,000 mcg PO DAILY 06/12/20 12/28/22 History 1,000 mcg tablet lisinopril 10 mg tablet 10 mg PO DAILY 06/12/20 12/28/22 History metformin 1,000 mg tablet 1,000 mg PO AMHS 06/12/20 12/28/22 History insulin glargine 100 unit/mL 18 unit subcut HS 10/23/21 12/28/22 History subcutaneous solution (Lantus U-100 Insulin) pantoprazole 40 mg tablet,delayed 40 mg PO DAILYBB 10/23/21 12/28/22 History release warfarin 5 mg tablet 2.5 mg PO UD 10/23/21 12/28/22 History warfarin 5 mg tablet 5 mg PO UD 10/23/21 12/28/22 History amiodarone 200 mg tablet 200 mg PO QAM 06/04/22 12/28/22 History cholecalciferol (vitamin D3) 50 50 mcg PO Q OTHER DAY 06/04/22 12/28/22 History mcg (2,000 unit) capsule diclofenac sodium 1 % topical gel 4 g topical QID PRN Pain 06/04/22 12/28/22 History furosemide 40 mg tablet (Lasix) 40 mg PO AMHS 06/04/22 12/28/22 History hydroxyzine pamoate 25 mg capsule 25 mg PO TID PRN itching 06/04/22 12/28/22 History (Vistaril) insulin glargine 100 unit/mL 34 unit subcut QAM 06/04/22 12/28/22 History subcutaneous solution (Lantus U-100 Insulin) ferrous sulfate 325 mg (65 mg 325 mg PO Q OTHER DAY 12/28/22 12/28/22 History iron) tablet pregabalin 100 mg capsule 100 mg PO AMHS 12/28/22 12/28/22 History albuterol sulfate 90 mcg/actuation 2 inh inhalation Q6H PRN shortness 01/01/23 Rx aerosol inhaler of breath or wheezing #8.5 grams cefdinir 300 mg capsule 300 mg PO BID 2 days #4 caps 01/01/23 Rx dextromethorphan polistirex 30 60 mg (10 mL) PO Q12H PRN cough 01/01/23 Rx mg/5 mL oral susp ext.release 12hr #89 mL (Delsym 12 hour) guaifenesin 600 mg tablet, 1,200 mg PO Q12 7 days #28 tabs 01/01/23 Rx extended release 12 hr (Mucinex) Hospital Stay Data Consultations 12/28/22 21:36 ED Decision to Admit Stat Pending Results Patient Have Any Pending Studies at Discharge: No Discharge Instructions Given to Patient (Per Discharging Provider) Mrs Felix. You came to the hospital with cough and some shortness of breath. You were evaluated and managed for COVID 19 infection. Your symptoms improved. Please complete remaining days of antibiotics for urinary infection You are being discharged home. Please ensure follow up with your Primary Doctor. It was a pleasure taking care of you. Total Time Total Time Spent Total Time Spent (In Minutes): 60 Total Time Includes: Examination of the Patient, Discharge Planning and Medication Reconciliation
[2023-01-03] MEDS ORDERED: WARFARIN SOD 2.5 MG TAB PO SCH (16:00)
== END 2023-01-01 16:53 | disposition home or self-care (01) | DRG 178 ==
LOC: ED 18:19 → INTOOBSV 12-29 02:33 → 2N 12-29 02:33

== ENCOUNTER 2023-10-20 19:53 | Inpatient (IN) ==
[2023-10-20] MEDS ORDERED: ONDANSETRON INJ 2 MG/ML 2 ML VIAL IV STA ×2 (20:29→21:58)
[2023-10-20 21:25] LABS: Alanine Aminotransferase 16 U/L (7-52); Albumin Globulin Ratio 1.1 (0.9-2); Alkaline Phosphatase 50 U/L (34-104); Anion Gap 17 (3-11); Aspartate Aminotransferase 38 U/L (13-39); BUN Creatinine Ratio 14.6 (10-20); Bilirubin,Total 0.5 mg/dl (0.2-1.0); Blood Urea Nitrogen 15 mg/dl (6-23); Calcium 9.4 mg/dl (8.6-10.3); Carbon Dioxide 21 mmol/L (21-32); Chloride 99 mmol/L (98-107); Est GFR (Non-African American) 50.9 ml/min; Globulin 3.8 gm/dl (2.5-4.0); Glucose 177 mg/dl (70-99(Fasting)); Potassium 3.7 mmol/L (3.5-5.1); Sodium 137 mmol/L (136-145); Total Protein 7.8 gm/dl (6.0-8.3)
[2023-10-20 21:32] LABS: Basophils # (auto) 0.09 K/uL (0.00-0.20); Basophils % (auto) 0.8 %; Eosinophils # (auto) 0.04 K/uL (0.00-0.50); Eosinophils % (auto) 0.3 %; Hematocrit (blood only) 37.1 % (37.0-47.0); Immature Granulocytes # (auto) 0.37 K/uL (0.01-0.20); Immature Granulocytes % (auto) 3.2 %; Lymphocytes % (auto) 13.1 %; Mean Corpuscular Hemoglobin 26.5 pg (25.0-34.0); Mean Corpuscular Hgb Conc 32.3 g/dL (32.0-36.0); Mean Corpuscular Volume 81.9 fL (80.0-100.0); Mean Platelet Volume 11.6 fL (9.4-12.4); Monocytes # (auto) 0.93 K/uL (0.11-0.59); Monocytes % (auto) 8.1 %; Neutrophils # (auto) 8.54 K/uL (1.40-6.50); Neutrophils % (auto) 74.5 %; Platelet Count 350 K/uL (130-400); RDW Coefficient of Variation 15.5 % (11.5-14.5); Red Blood Count 4.53 M/uL (4.20-5.40); White Blood Count 11.47 K/ul (4.8-10.8)
[2023-10-20 21:34] LABS: Partial Thromboplastin Time 29 Seconds (21-31); Prothrombin Time 20.6 Seconds (9.0-12.0)
--- NOTE | 2023-10-20 21:57 | XRay Report ---
SINGLE VIEW CHEST CLINICAL HISTORY: Dyspnea FINDINGS: An AP, portable, upright chest radiograph is compared to study dated 12/28/2022. The examina tion is degraded by portable technique and patient rotation. The heart is enlarged noting atheroscle rotic calcification of the thoracic aorta. The pulmonary vasculature is noncongested. Chronic interst itial thickening is similar to previous. There is mild bibasilar scarring/atelectasis. The lungs and pleural spaces are otherwise clear. No pneumothorax is seen. The skeletal structures are osteopenic. The bony thorax is grossly intact. IMPRESSION: Cardiomegaly with no active disease in the chest. ACT 112: Negative or not required by law. Electronically signed by: Martinez Cuadra M.D. 10/20/2023 9:55 PM
[2023-10-20] MEDS ORDERED: LORazepam 1 MG/1 ML SYR ED Inj Use IV STA (21:58)
--- NOTE | 2023-10-20 22:10 | Emergency Department Note ---
Impression & Plan SOB (shortness of breath), Weakness, Leukocytosis, Acute UTI, Elevated lactic acid level ED Provider Note NAME: ANABELLA STOREY AGE: 83 SEX: F : 1940 ARRIVES VIA: Ambulance INFORMANT: [Patient][hsband] ED PROVIDER(S): [Martinez Robles MD] CHIEF COMPLAINT: Illness HISTORY OF PRESENT ILLNESS: The patient is an 83-year-old female who is on 2 L of oxygen at all times. She presents with 4 days of shortness of breath, coughing up phlegm, nausea, no appetite and generalized weakness. The patient was seen in the ED last evening for her symptoms and was felt stable for discharge home. She presents back tonight by ambulance with worsening of her situation. She does not feel safe at home. Her is at bedside. Patient denies any fever, no diarrhea, no vomiting. As per the nursing staff, the patient has shown some anxiety since arrival here at our hospital. PMHx/PSHx/Social Hx: See Below PHYSICAL EXAM: GENERAL: Patient is in mild distress, seems anxious HEENT: No acute trauma, normocephalic atraumatic, mucous membranes moist, no nasal congestion. NECK: No stridor, no adenopathy, no meningismus, trachea is midline. LUNGS: Clear to auscultation bilaterally, no wheeze, no rhonchi, breath sounds equal. HEART: Without murmurs gallops or rubs, regular rate and rhythm. Heart tones are distant. ABDOMEN: Soft, nontender, no peritonitis. Obese. EXTREMITIES: No cyanosis, full range of motion of all the joints without pain or difficulty. Marked bilateral pedal edema. NEUROLOGIC: Oriented x 3, no acute motor or sensory deficits, no focal weakness. SKIN: No jaundice, no diaphoresis. DIFFERENTIAL DIAGNOSIS: Pneumonia or bronchitis, UTI, CHF, anemia, dysrhythmia, viral illness, anxiety, [place], among others. EMERGENCY DEPARTMENT PROCEDURES: MEDICAL DECISION MAKING: There is a mild leukocytosis, this could be consistent with infection. There is a normal hemoglobin and platelet count. INR is elevated at 2 consistent with her warfarin use. There is a anion gap present with a value of 17. No renal failure. Lactic acid level is quite elevated at 4.2. This elevation could be secondary to sepsis or potentially dehydration. No concerning liver enzyme elevation. ECG shows a normal sinus rhythm with artifact. No ST elevation. Cardiac enzyme testing x 1 is slightly elevated. This troponin elevation could be secondary to mismatch from her dyspnea or potentially, cardiac injury. Urinalysis does appear to show infection. Respiratory bio fire is pending. Chest film shows some chronic change, I see no pneumonia. On exam, patient was quite anxious. Her blood pressure was adequate. Her O2 saturation was adequate on nasal cannula supplementation. The patient was given IV Aztreonam as she has a significant allergy to penicillin. As her QTc was somewhat prolonged, I was reluctant to prescribe a fluoroquinolone. The aztreonam was given for empiric antibiotic coverage. Patient was given IV Ativan 0.5 mg, this did seem to help her anxiety. She received IV Zofran for nausea. She was given a liter of IV saline. The patient may in fact be septic given the high lactic acid elevation. I have chosen only to give 1 L of IV fluid as she has a history of heart failure and I am quite concerned about the possibility of CHF and fluid overload if additional fluids are administered. As noted above, her blood pressure has remained adequate--no hypotension. The patient presents with dyspnea and no appetite. She is weak. This is her second visit in just 24 hours. Hospitalization is indicated. I spoke with the patient and case management, the on-call hospitalist was consulted. Prior/Outside records/notes reviewed: Discharge note from 01/01/2023 discussing her admission for COVID-19, UTI and heart failure. ECG per my interpretation: Indication was shortness of breath. The ECG shows what appears to be a normal sinus rhythm with some baseline artifact. There is a right bundle branch block. LVH is present. The rate is 99. There is no concerning ST elevation. No PVCs. QTc is 523. Continuous Cardiac Monitoring per my interpretation: An order was placed for continuous cardiac monitoring. The monitor shows a rate of 91 with normal sinus rhythm. Imaging/x-ray results per my interpretation: Chest x-ray shows some chronic changes, I see no focal pneumonia, CHF or pneumothorax. Chronic Medical/Social conditions affecting care: Lymphedema, chronic lung disease. Care/Management discussed with: Case management and the on-call hospitalist. Level of care consideration(s): After review of the information above and other included data: --I believe the patient requires escalation of care to admission Critical Care Note: I have personally spent 52 minutes of critical care time in the direct management of this patient. This includes bedside care, interpretation of diagnostic studies, and testing, discussion with consultants, patient, and family members, and other required patient management activities. This 52 minutes is in excess of all separately billable procedures. DISPOSITION: Admitted Past Med/Surg History Medical History Chronic diastolic CHF (congestive heart failure) CKD (chronic kidney disease), stage III Paroxysmal atrial flutter Paroxysmal atrial fibrillation Osteoarthritis Depression Poor historian History of breast cancer LEFT Sleep apnea NO DEVICE USED Palliative care encounter AMS (altered mental status) Respiratory acidosis Admitted to intensive care unit Ascending cholangitis E coli bacteremia UTI (urinary tract infection) NSVT (nonsustained ventricular tachycardia) HTN (hypertension) History of paroxysmal supraventricular tachycardia Seen by [facility] cardio 12/18/20, " Although historically she has been diagnosed with "PSVT" it sounds as though she has also had a diagnosis of atrial flutter and on review of telemetry monitoring strips it looks like she has runs of PAT. She also has a twelve-lead electrocardiogram looking like atrial fibrillation. She probably has all of these arrhythmias, but she is asymptomatic with them. Although the heart rate is quite fast she was started on amiodarone and without symptoms it is hard to say what degree of control we have. I do not think extensive monitoring is indicated. I would continue amiodarone for now." History of paroxysmal atrial tachycardia Left anterior fascicular block History of pulmonary embolism ? DATE (REASON FOR WARFARIN) DM type 2 (diabetes mellitus, type 2) Acute cholecystitis due to biliary calculus Cholangitis Chronic venous insufficiency PAD (peripheral artery disease) Vitamin D insufficiency detention (current) use of 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 Lymphedema, not elsewhere classified Diabetes mellitus with neuropathy Surgical History H/O left mastectomy History of anesthesia reaction "MY HEART IS EXTRA FAST WHEN I GET ANESTHESIA" History of cataract surgery RT/LEFT History of cholecystectomy History of ERCP History of tonsillectomy History of tooth extraction S/P hysterectomy S/P right rotator cuff repair Family History Grandmother (Paternal) Family history of diabetes mellitus Other Family history non-contributory No family history of adverse response to anesthesia Social History Smoking Status: Never smoker Second Hand Exposure: No; Do You Dip or Chew Tobacco: No; Hx Alcohol Use: No Hx Substance Use: No Preferred Language: Indian Communication Ability: Effective Visual Impairment: Limited Hearing Ability: Normal 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 Required: No Beliefs That Will Affect Care: None marital status: Current Living Situation: Spouse current occupational status: retired Feels Safe at Home: Yes Assistive Devices: Oxygen - Continuous and Walker Allergies Allergies Allergy/AdvReac Type Severity Reaction Status Date / Time Penicillins Allergy Severe SOB Unverified 10/20/23 21:35 ,THROAT SHUT,COULDN'T BREATHE rosiglitazone Allergy Severe UNKNOWN-RELATED Verified 10/20/23 21:35 POSS TO DVT/PE PER MEDICAL RECORD tramadol Allergy Unknown UNKNOWN Verified 10/20/23 21:35 adhesive AdvReac Mild IRRITATES Verified 10/20/23 21:35 SKIN Home Meds Home Medications Medication Instructions Recorded Confirmed anastrozole 1 mg tablet 1 mg PO DAILY 10/20/23 10/20/23 cholecalciferol (vitamin D3) 50 50 mcg PO Q OTHER DAY 10/20/23 10/20/23 mcg (2,000 unit) capsule (Vitamin D3) cyanocobalamin (vitamin B-12) 1,000 mcg PO DAILY 10/20/23 10/20/23 1,000 mcg tablet (Vitamin B-12) diclofenac sodium 1 % topical gel 0 g topical DIRECTED PRN Pain 10/20/23 10/20/23 ferrous sulfate 325 mg (65 mg 325 mg PO DAILY 10/20/23 10/20/23 iron) tablet furosemide 40 mg tablet 40 mg PO AMHS 10/20/23 10/20/23 insulin glargine 100 unit/mL 36 unit subcut QAM 10/20/23 10/20/23 subcutaneous solution (Lantus U-100 Insulin) insulin glargine 100 unit/mL 42 unit subcut QPM 10/20/23 10/20/23 subcutaneous solution (Lantus U-100 Insulin) lisinopril 10 mg tablet 10 mg PO DAILY 10/20/23 10/20/23 metformin 1,000 mg tablet 1,000 mg PO BID 10/20/23 10/20/23 metoprolol tartrate 25 mg tablet 25 mg PO AMHS 10/20/23 10/20/23 pantoprazole 40 mg tablet,delayed 40 mg PO DAILY 10/20/23 10/20/23 release pregabalin 150 mg capsule 150 mg PO BID 10/20/23 10/20/23 tramadol 50 mg tablet 50 mg PO DAILY PRN Pain 10/20/23 10/20/23 warfarin 5 mg tablet (Jantoven) 2.5 - 5 mg PO DIRECTED 10/20/23 10/20/23 Results & Data (ED) Vital Signs Vital Signs - 24 hr 10/20/23 19:58 10/20/23 21:25 10/20/23 22:15 Temperature 36.0 C L Temperature Source Temporal Artery Scan Pulse Rate 113 H 91 H Pulse Rate [Apical] 94 H Respiratory Rate 26 H 28 H Respiratory Effort / Characteristics Short of Breath Blood Pressure 129/76 Blood Pressure [Right Arm] 107/78 Blood Pressure Mean 93 Blood Pressure Mean [Right Arm] 87 Pulse Oximetry 98 100 Oxygen Delivery Method Nasal Cannula Nasal Cannula Oxygen Flow Rate 2 3 Sepsis Recent Fever Within 48 Hours Yes Sepsis New/Unexplained Change in Mental Status No Sepsis Action Taken by Nursing No Action Required 10/20/23 22:51 Temperature Temperature Source Pulse Rate Pulse Rate [Apical] 78 Respiratory Rate 31 H Respiratory Effort / Characteristics Blood Pressure Blood Pressure [Right Arm] 123/75 Blood Pressure Mean Blood Pressure Mean [Right Arm] 91 Pulse Oximetry 100 Oxygen Delivery Method Nasal Cannula Oxygen Flow Rate 3 Sepsis Recent Fever Within 48 Hours Sepsis New/Unexplained Change in Mental Status Sepsis Action Taken by [facility] Medications Current Medication List: was personally reviewed by me Laboratory Data Attestation: I reviewed the patient's lab results. 10/20/23 20:48 10/20/23 20:48 Lab Results 10/20/23 10/20/23 Range/Units 20:48 22:06 WBC 11.47 H (4.8-10.8) K/ul RBC 4.53 (4.20-5.40) M/uL Hgb 12.0 (12.0-16.0) g/dl Hct 37.1 (37.0-47.0) % MCV 81.9 (80.0-100.0) fL MCH 26.5 (25.0-34.0) pg MCHC 32.3 (32.0-36.0) g/dL RDW Std Deviation 46.0 (36.4-46.3) fL RDW Coeff of [place] 15.5 H (11.5-14.5) % Plt Count 350 (130-400) K/uL MPV 11.6 (9.4-12.4) fL Immature Gran % (Auto) 3.2 % Neut % (Auto) 74.5 % Lymph % (Auto) 13.1 % [place] % (Auto) 8.1 % Eos % (Auto) 0.3 % Baso % (Auto) 0.8 % Neut # (Auto) 8.54 H (1.40-6.50) K/uL Lymph # (Auto) 1.50 (1.20-3.40) K/uL [place] # (Auto) 0.93 H (0.11-0.59) K/uL Eos # (Auto) 0.04 (0.00-0.50) K/uL Baso # (Auto) 0.09 (0.00-0.20) K/uL Immature Gran # (Auto) 0.37 H (0.01-0.20) K/uL PT 20.6 H (9.0-12.0) Seconds INR 2.0 H (0.9-1.1) APTT 29 (21-31) Seconds PTT Ratio 1.0 Sodium 137 (136-145) mmol/L Potassium 3.7 (3.5-5.1) mmol/L Chloride 99 (98-107) mmol/L Carbon Dioxide 21 (21-32) mmol/L Anion Gap 17 H (3-11) BUN 15 (6-23) mg/dl Creatinine 1.03 (0.6-1.2) mg/dl Est Cr Clr Drug Dosing Not Reportable Est GFR ( Amer) 59.0 ml/min Est GFR (Non-Af Amer) 50.9 ml/min BUN/Creatinine Ratio 14.6 (10-20) Glucose 177 H (70-99(Fasting)) mg/dl Lactate 4.2 H* (0.4-2.0) mmol/L Calcium 9.4 (8.6-10.3) mg/dl Magnesium 1.8 (1.7-2.4) mg/dl Total Bilirubin 0.5 (0.2-1.0) mg/dl AST 38 (13-39) U/L ALT 16 (7-52) U/L Alkaline Phosphatase 50 (34-104) U/L Troponin I High Sens 21.9 H (0-14) pg/ml Total Protein 7.8 (6.0-8.3) gm/dl Albumin 4.0 (3.4-5.0) gm/dl Globulin 3.8 (2.5-4.0) gm/dl Albumin/Globulin Ratio 1.1 (0.9-2) Urine Color Yellow Urine Appearance Cloudy A (Clear) Urine pH >= 9.0 H (4.5-7.5) Ur Specific [place] 1.007 (1.000-1.030) Urine Protein Trace H (Negative) Urine Glucose (UA) Negative (Negative) Urine Ketones 1+ H (Negative) Urine Blood Trace H (Negative) Urine Nitrite Negative (Negative) Urine Bilirubin Negative (Negative) Urine Urobilinogen Negative (Negative) Ur Leukocyte Esterase 3+ H (Negative) Urine WBC (Auto) >30 H (0-5) /hpf Urine RBC (Auto) 0-4 (0-4) /hpf U Hyaline Cast (Auto) 1-5 (0-5) /lpf U Epithel Cells (Auto) 5-10 H (0-5) /lpf Urine Bacteria (Auto) 4+ H (Negative) Administered Medications Sodium Chloride (Nss) 1,000 mls @ 999 mls/hr IV .Q1H1M ONE Stop: 10/20/23 23:32 Last Admin: 10/20/23 22:50 Dose: 999 mls/hr Documented By: KILLIAN Discontinued Medications Aztreonam 1,000 mg/ Dextrose 100 mls @ 100 mls/hr IV NOW STA Stop: 10/20/23 23:11 Last Admin: 10/20/23 22:50 Dose: 100 mls/hr Documented By: KILLIAN Lorazepam (Lorazepam 1 Mg/1 Ml Syr Ed Inj Use) 0.5 mg IV ONE STA Stop: 10/20/23 21:59 Last Admin: 10/20/23 22:32 Dose: 0.5 mg Documented By: KILLIAN Ondansetron HCl (Ondansetron Inj 2 Mg/Ml 2 Ml Vial) 4 mg IV NOW STA Stop: 10/20/23 20:30 Last Admin: 10/20/23 21:16 Dose: 4 mg Documented By: KILLIAN Ondansetron HCl (Ondansetron Inj 2 Mg/Ml 2 Ml Vial) 4 mg IV NOW STA Stop: 10/20/23 21:59 Last Admin: 10/20/23 22:32 Dose: 4 mg Documented By: KILLIAN Imaging Data Radiologist's Impression: Chest X-Ray 10/20/23 20:04 SINGLE VIEW CHEST CLINICAL HISTORY: Dyspnea FINDINGS: An AP, portable, upright chest radiograph is compared to study dated 12/28/2022. The examination is degraded by portable technique and patient rotation. The heart is enlarged noting atherosclerotic calcification of the thoracic aorta. The pulmonary vasculature is noncongested. Chronic interstitial thickening is similar to previous. There is mild bibasilar scarring/atelectasis. The lungs and pleural spaces are otherwise clear. No pneumothorax is seen. The skeletal structures are osteopenic. The bony thorax is grossly intact. IMPRESSION: Cardiomegaly with no active disease in the chest. ACT 112: Negative or not required by law. Electronically signed by: Martinez Cuadra M.D. 10/20/2023 9:55 PM Discharge Plan Visit Data Chief Complaint: Illness Stated Complaint: GENERALIZED ILLNESS, CHILLS, HOT FLASHES ED Provider: Martinez Robles Discharge Problem: SOB (shortness of breath), Weakness, Leukocytosis, Acute UTI, Elevated lactic acid level Patient Disposition: Admitted As Inpatient Condition: Fair Forms Stand Alone Forms: My [facility] Prescriptions Prescriptions: No Action furosemide 40 mg tablet 40 mg PO AMHS anastrozole 1 mg tablet 1 mg PO DAILY insulin glargine [Lantus U-100 Insulin] 100 unit/mL solution 36 unit SUBCUT QAM insulin glargine [Lantus U-100 Insulin] 100 unit/mL solution 42 unit SUBCUT QPM cyanocobalamin (vitamin B-12) [Vitamin B-12] 1,000 mcg Tablet 1,000 mcg PO DAILY tramadol 50 mg tablet 50 mg PO DAILY PRN (Reason: Pain) pantoprazole 40 mg tablet,delayed release (DR/EC) 40 mg PO DAILY ferrous sulfate 325 mg (65 mg iron) Tablet 325 mg PO DAILY metformin 1,000 mg tablet 1,000 mg PO BID lisinopril 10 mg tablet 10 mg PO DAILY warfarin [Kimoven] 5 mg tablet 2.5 - 5 mg PO DIRECTED Rx Instructions: warfarin 2.5mg po on Tuesday and 5mg po daily on other days metoprolol tartrate 25 mg tablet 25 mg PO AMHS pregabalin 150 mg capsule 150 mg PO BID Rx Instructions: TAKE IN AM & BEFORE HS diclofenac sodium [Voltaren] 1 % Gel 0 g TOPICAL DIRECTED PRN (Reason: Pain) Rx Instructions: apply to single elbow, wrist or hand; for hand includes palm/fingers/back of hand cholecalciferol (vitamin D3) [Vitamin D3] 50 mcg (2,000 unit) Capsule 50 mcg PO Q OTHER DAY Referrals Referrals: Christiano Felton MD [Primary Care Provider] - Discharge Problem: Leukocytosis Qualifiers: Leukocytosis type: unspecified Qualified Code(s): D72.829 - Elevated white blood cell count, unspecified
[2023-10-20] MEDS ORDERED: AZTREONAM 1,000 MG in DEXTROSE 5% MINI-B 100 ML IV STA (22:12)
[2023-10-20 22:24] LABS: Magnesium 1.8 mg/dl (1.7-2.4)
[2023-10-20 22:31] LABS: Troponin I High Sensitivity 21.9 pg/ml (0-14)
[2023-10-20] MEDS ORDERED: SODIUM CHLORIDE 0.9% 1,000 ML IV ONE (22:32)
[2023-10-20 22:33] LABS: Appearance Urine Cloudy (Clear); Bacteria Urine Automated 4+ (Negative); Bilirubin Urine Negative (Negative); Blood Urine Trace (Negative); Color Urine Yellow; Glucose Urine UA Negative (Negative); Ketones Urine 1+ (Negative); Leukocyte Esterase Urine 3+ (Negative); Nitrite Urine Negative (Negative); Protein Urine Trace (Negative); RBC Urine Automated 0-4 /hpf (0-4); Specific Gravity Urine 1.007 (1.000-1.030); Urobilinogen Urine Negative (Negative); WBC Urine Automated >30 /hpf (0-5); pH Urine >= 9.0 (4.5-7.5)
[2023-10-20 23:16] LABS: Adenovirus PCR Not Detected (NotDetected); Bordetella parapertussis PCR Not Detected (NotDetected); Bordetella pertussis PCR Not Detected (NotDetected); Chlamydia pneumoniae PCR Not Detected (NotDetected); Coronavirus 229E PCR Not Detected (NotDetected); Coronavirus CoV-2 (COVID19)PCR Not Detected (NotDetected); Coronavirus HKU1 PCR Not Detected (NotDetected); Coronavirus NL63 PCR Not Detected (NotDetected); Coronavirus OC43PCR Not Detected (NotDetected); Human Metapneumovirus PCR Not Detected (NotDetected); Influenza A PCR Not Detected (NotDetected); Influenza B PCR Not Detected (NotDetected); Mycoplasma pneumoniae PCR Not Detected (NotDetected); Parainfluenza Virus 1 PCR Not Detected (NotDetected); Parainfluenza Virus 2 PCR Not Detected (NotDetected); Parainfluenza Virus 3 PCR Not Detected (NotDetected); Parainfluenza Virus 4 PCR Not Detected (NotDetected); Respiratory Syncytial VirusPCR Not Detected (NotDetected); Rhinovirus/Enterovirus PCR Not Detected (NotDetected)
--- NOTE | 2023-10-20 23:42 | History & Physical Report ---
Date of Service October 20, 2023 Assessment & Plan (1) Severe sepsis: Plan: 83-year-old female with past med history significant for type 2 diabetes, diabetic polyneuropathy, obstructive sleep apnea noncompliant with CPAP on 2 L oxygen, paroxysmal SVT, nonsustained ventricular tachycardia, A-flutter, diastolic CHF, hypertension, nonrheumatic aortic valve stenosis, obesity, GERD, CKD stage III, osteoarthritis, history of breast cancer, history of chronic lymp hedema, history of PE, presents with feeling cold and hot, cough and shortness of breath fatigue and weakness going on for last 4 days and found to UTI and sepsis. Severe sepsis UTI Lactic acid is 4.2 Symptoms going on last 4 days Received IV Azactam in the ER IV fluid Blood pressure is okay, no tachycardia WBC 11.4 Verified with pharmacy, patient tolerated Rocephin and cefepime in the past Will do IV cefepime Follow repeat lactic acid and hemodynamics Close monitor Having cough and shortness of breath Respiratory bio fire negative Chest x-ray okay Possible bronchitis Empiric doxycycline History of obstructive sleep apnea Noncompliant with CPAP Uses 2 L oxygen History of chronic diastolic CHF Moderate aortic valve stenosis Holding Lasix Getting fluids Monitor for volume overload Mild elevation troponin Mostly demand ischemia Follow serial enzymes History of pulmonary embolism On Coumadin INR 2 History of a flutter Holding metoprolol for sepsis for now On Coumadin and INR therapeutic History of paroxysmal SVT Currently holding metoprolol restart as soon as possible. Hypertension Holding metoprolol and lisinopril Close monitor History of diabetes Continue with Lantus 30 units twice daily and insulin sliding scale Glycemic pharmacy consult GERD On Protonix History of breast cancer S/p left mastectomy On anastrozole Follows with heme/onco History of bilateral lower extremity lymphedema DVT prophylaxis On Coumadin and INR therapeutic Disposition Telemetry floor Full code History of Present Illness Chief Complaint: Severe sepsis, UTI Primary Care Provider: Christiano Felton MD 83-year-old female with past med history significant for type 2 diabetes, diabetic polyneuropathy, obstructive sleep apnea noncompliant with CPAP on 2 L oxygen, paroxysmal SVT, nonsustained ventricular tachycardia, A-flutter, diastolic CHF, hypertension, nonrheumatic aortic valve stenosis, obesity, GERD, CKD stage III, osteoarthritis, history of breast cancer, history of chronic lymphedema, history of PE, presents with feeling cold and hot, cough and shortness of breath, fatigue and weakness going on for last 4 days and found to UTI and sepsis. Patient was in the ER couple of days ago with feeling chills and cold and not feeling well and workup was unremarkable and sent home. Again comes today because of progressive worsening of symptoms with fatigue and not able to ambulate. Did not notice any fevers. But feet felt hot and cold and chills. Denies any burning micturition. Stools are always black. Also having several episodes of diarrhea. Coughing up mucus. Denies any headache or body ache. Has some runny nose. Also having shortness of breath. Denies any chest pain. No abdominal pain. She has chronic lymphedema of lower extremities and she did not use her lymphedema machine for the last 2 days and thinks her swelling is little worse. Currently hemodynamically stable. She received dose of Ativan for anxiety in the ER. Past med history. As mentioned above Past surgical history. Left breast biopsy. ERCP. Laparoscopic hysterectomy. Laparoscopic cholecystectomy. Left simple mastectomy. Low back surgery. Bilateral arthroscopic surgeries on knees. Tonsillectomy. Repair of right shoulder ruptured rotator cuff. [place] lymph node biopsy on left side. Social history. . No smoking. No alcohol. No drug use. Family history. Father had diabetes. Maternal grandfather had diabetes. Allergies Allergy/AdvReac Type Severity Reaction Status Date / Time Penicillins Allergy Severe SOB Unverified 10/20/23 21:35 ,THROAT SHUT,COULDN'T BREATHE rosiglitazone Allergy Severe UNKNOWN-RELATED Verified 10/20/23 21:35 POSS TO DVT/PE PER MEDICAL RECORD tramadol Allergy Unknown UNKNOWN Verified 10/20/23 21:35 adhesive AdvReac Mild IRRITATES Verified 10/20/23 21:35 SKIN Home Medications Medication Instructions Recorded Confirmed Type anastrozole 1 mg tablet 1 mg PO DAILY 10/20/23 10/20/23 History cholecalciferol (vitamin D3) 50 50 mcg PO Q OTHER DAY 10/20/23 10/20/23 History mcg (2,000 unit) capsule (Vitamin D3) cyanocobalamin (vitamin B-12) 1,000 mcg PO DAILY 10/20/23 10/20/23 History 1,000 mcg tablet (Vitamin B-12) diclofenac sodium 1 % topical gel 0 g topical DIRECTED PRN Pain 10/20/23 10/20/23 History ferrous sulfate 325 mg (65 mg 325 mg PO DAILY 10/20/23 10/20/23 History iron) tablet furosemide 40 mg tablet 40 mg PO AMHS 10/20/23 10/20/23 History insulin glargine 100 unit/mL 36 unit subcut QAM 10/20/23 10/20/23 History subcutaneous solution (Lantus U-100 Insulin) insulin glargine 100 unit/mL 42 unit subcut QPM 10/20/23 10/20/23 History subcutaneous solution (Lantus U-100 Insulin) lisinopril 10 mg tablet 10 mg PO DAILY 10/20/23 10/20/23 History metformin 1,000 mg tablet 1,000 mg PO BID 10/20/23 10/20/23 History metoprolol tartrate 25 mg tablet 25 mg PO AMHS 10/20/23 10/20/23 History pantoprazole 40 mg tablet,delayed 40 mg PO DAILY 10/20/23 10/20/23 History release pregabalin 150 mg capsule 150 mg PO BID 10/20/23 10/20/23 History tramadol 50 mg tablet 50 mg PO DAILY PRN Pain 10/20/23 10/20/23 History warfarin 5 mg tablet (Jantoven) 2.5 - 5 mg PO DIRECTED 10/20/23 10/20/23 H istory Past Med/Surg History Medical History Chronic diastolic CHF (congestive heart failure) CKD (chronic kidney disease), stage III Paroxysmal atrial flutter Paroxysmal atrial fibrillation Osteoarthritis Depression Poor historian History of breast cancer LEFT Sleep apnea NO DEVICE USED Palliative care encounter AMS (altered mental status) Respiratory acidosis Admitted to intensive care unit Ascending cholangitis E coli bacteremia UTI (urinary tract infection) NSVT (nonsustained ventricular tachycardia) HTN (hypertension) History of paroxysmal supraventricular tachycardia Seen by [facility] cardio 12/18/20, " Although historically she has been diagnosed with "PSVT" it sounds as though she has also had a diagnosis of atrial flutter and on review of telemetry monitoring strips it looks like she has runs of PAT. She also has a twelve-lead electrocardiogram looking like atrial fibrillation. She probably has all of these arrhythmias, but she is asymptomatic with them. Although the heart rate is quite fast she was started on amiodarone and without symptoms it is hard to say what degree of control we have. I do not think extensive monitoring is indicated. I would continue amiodarone for now." History of paroxysmal atrial tachycardia Left anterior fascicular block History of pulmonary embolism ? 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 Lymphedema, not elsewhere classified Diabetes mellitus with neuropathy Surgical History H/O left mastectomy History of anesthesia reaction "MY HEART IS EXTRA FAST WHEN I GET ANESTHESIA" History of cataract surgery RT/LEFT History of cholecystectomy History of ERCP History of tonsillectomy History of tooth extraction S/P hysterectomy S/P right rotator cuff repair Family History Grandmother (Paternal) Family history of diabetes mellitus Other Family history non-contributory No family history of adverse response to anesthesia Social History Smoking Status: Never smoker Second Hand Exposure: No; Do You Dip or Chew Tobacco: No; Hx Alcohol Use: No Hx Substance Use: No Preferred Language: Hebrew Communication Ability: Effective Visual Impairment: Limited Hearing Ability: Normal Transit Mechanic Required: No Beliefs That Will Affect Care: None marital status: Current Living Situation: Spouse current occupational status: retired Feels Safe at Home: Yes Assistive Devices: Oxygen - Continuous and Walker Review of Systems Review of Systems: All systems reviewed & are unremarkable except as noted in HPI & below Physical Exam Physical Exam: General- Not t in acute distress Head- atraumatic Eyes- PERRL. ENT- oropharynx clear Neck- supple, no JVD. Lungs- clear to auscultation , no wheezing or crackles. Heart- regular rhythm; no murmur, no gallop. Abdomen- normal bowel sounds, soft, nontender, no distension. Extremities- b/l lower extremity lymphedema present. no erythema seen. Neuro- alert, oriented x 3; PERRL, no facial palsy; no dysarthria; obeys commands Skin- warm & dry Results & Data Results & Data Vital Signs (Past 12 Hours) Vital Signs Temp Pulse Pulse Resp BP BP Pulse Ox 10/20/23 22:51 78 31 H 123/75 100 10/20/23 22:15 94 H 28 H 107/78 100 10/20/23 21:25 91 H 10/20/23 19:58 36.0 C L 113 H 26 H 129/76 98 O2 Del Method O2 Flow Rate 10/20/23 22:51 Nasal Cannula 3 10/20/23 22:15 Nasal Cannula 3 10/20/23 21:25 10/20/23 19:58 Nasal Cannula 2 Diagnostic Findings Laboratory Results WBC 11.47 K/ul (4.8-10.8) H 10/20/23 20:48 RBC 4.53 M/uL (4.20-5.40) 10/20/23 20:48 Hgb 12.0 g/dl (12.0-16.0) 10/20/23 20:48 Hct 37.1 % (37.0-47.0) 10/20/23 20:48 MCV 81.9 fL (80.0-100.0) 10/20/23 20:48 MCH 26.5 pg (25.0-34.0) 10/20/23 20:48 MCHC 32.3 g/dL (32.0-36.0) 10/20/23 20:48 RDW Std Deviation 46.0 fL (36.4-46.3) 10/20/23 20:48 RDW Coeff of [place] 15.5 % (11.5-14.5) H 10/20/23 20:48 Plt Count 350 K/uL (130-400) 10/20/23 20:48 MPV 11.6 fL (9.4-12.4) 10/20/23 20:48 Immature Gran % (Auto) 3.2 % 10/20/23 20:48 Neut % (Auto) 74.5 % 10/20/23 20:48 Lymph % (Auto) 13.1 % 10/20/23 20:48 [place] % (Auto) 8.1 % 10/20/23 20:48 Eos % (Auto) 0.3 % 10/20/23 20:48 Baso % (Auto) 0.8 % 10/20/23 20:48 Neut # (Auto) 8.54 K/uL (1.40-6.50) H 10/20/23 20:48 Lymph # (Auto) 1.50 K/uL (1.20-3.40) 10/20/23 20:48 [place] # (Auto) 0.93 K/uL (0.11-0.59) H 10/20/23 20:48 Eos # (Auto) 0.04 K/uL (0.00-0.50) 10/20/23 20:48 Baso # (Auto) 0.09 K/uL (0.00-0.20) 10/20/23 20:48 Immature Gran # (Auto) 0.37 K/uL (0.01-0.20) H 10/20/23 20:48 PT 20.6 Seconds (9.0-12.0) H 10/20/23 20:48 INR 2.0 (0.9-1.1) H 10/20/23 20:48 APTT 29 Seconds (21-31) 10/20/23 20:48 PTT Ratio 1.0 10/20/23 20:48 Sodium 137 mmol/L (136-145) 10/20/23 20:48 Potassium 3.7 mmol/L (3.5-5.1) 10/20/23 20:48 Chloride 99 mmol/L (98-107) 10/20/23 20:48 Carbon Dioxide 21 mmol/L (21-32) 10/20/23 20:48 Anion Gap 17 (3-11) H 10/20/23 20:48 BUN 15 mg/dl (6-23) 10/20/23 20:48 Creatinine 1.03 mg/dl (0.6-1.2) 10/20/23 20:48 Est Cr Clr Drug Dosing Not Reportable 10/20/23 20:48 Est GFR ( Amer) 59.0 ml/min 10/20/23 20:48 Est GFR (Non-Af Amer) 50.9 ml/min 10/20/23 20:48 BUN/Creatinine Ratio 14.6 (10-20) 10/20/23 20:48 Glucose 177 mg/dl (70-99(Fasting)) H 10/20/23 20:48 Lactate 4.2 mmol/L (0.4-2.0) H* 10/20/23 22:06 Calcium 9.4 mg/dl (8.6-10.3) 10/20/23 20:48 Magnesium 1.8 mg/dl (1.7-2.4) 10/20/23 20:48 Total Bilirubin 0.5 mg/dl (0.2-1.0) 10/20/23 20:48 AST 38 U/L (13-39) 10/20/23 20:48 ALT 16 U/L (7-52) 10/20/23 20:48 Alkaline Phosphatase 50 U/L (34-104) 10/20/23 20:48 Troponin I High Sens 21.9 pg/ml (0-14) H 10/20/23 20:48 Total Protein 7.8 gm/dl (6.0-8.3) 10/20/23 20:48 Albumin 4.0 gm/dl (3.4-5.0) 10/20/23 20:48 Globulin 3.8 gm/dl (2.5-4.0) 10/20/23 20:48 Albumin/Globulin Ratio 1.1 (0.9-2) 10/20/23 20:48 Urine Color Yellow 10/20/23 22:06 Urine Appearance Cloudy (Clear) A 10/20/23 22:06 Urine pH >= 9.0 (4.5-7.5) H 10/20/23 22:06 Ur Specific [place] 1.007 (1.000-1.030) 10/20/23 22:06 Urine Protein Trace (Negative) H 10/20/23 22:06 Urine Glucose (UA) Negative (Negative) 10/20/23 22:06 Urine Ketones 1+ (Negative) H 10/20/23 22:06 Urine Blood Trace (Negative) H 10/20/23 22:06 Urine Nitrite Negative (Negative) 10/20/23 22:06 Urine Bilirubin Negative (Negative) 10/20/23 22:06 Urine Urobilinogen Negative (Negative) 10/20/23 22:06 Ur Leukocyte Esterase 3+ (Negative) H 10/20/23 22:06 Urine WBC (Auto) >30 /hpf (0-5) H 10/20/23 22:06 Urine RBC (Auto) 0-4 /hpf (0-4) 10/20/23 22:06 U Hyaline Cast (Auto) 1-5 /lpf (0-5) 10/20/23 22:06 U Epithel Cells (Auto) 5-10 /lpf (0-5) H 10/20/23 22:06 Urine Bacteria (Auto) 4+ (Negative) H 10/20/23 22:06 Adenovirus (PCR) Not Detected (NotDetected) 10/20/23 22:06 B. pertussis DNA (PCR) Not Detected (NotDetected) 10/20/23 22:06 B.parapertussis DNA PCR Not Detected (NotDetected) 10/20/23 22:06 C. pneumoniae DNA (PCR) Not Detected (NotDetected) 10/20/23 22:06 Coronavirus OC43 (PCR) Not Detected (NotDetected) 10/20/23 22:06 Coronavirus HKU1 (PCR) Not Detected (NotDetected) 10/20/23 22:06 Coronavirus 229E (PCR) Not Detected (NotDetected) 10/20/23 22:06 SARS-CoV-2 (PCR) Not Detected (NotDetected) 10/20/23 22:06 Coronavirus NL63 (PCR) Not Detected (NotDetected) 10/20/23 22:06 Human Metapneumovir PCR Not Detected (NotDetected) 10/20/23 22:06 Influenza Type A (PCR) Not Detected (NotDetected) 10/20/23 22:06 Influenza Type B (PCR) Not Detected (NotDetected) 10/20/23 22:06 M. pneumoniae (PCR) Not Detected (NotDetected) 10/20/23 22:06 Parainfluenza 1 (PCR) Not Detected (NotDetected) 10/20/23 22:06 Parainfluenza 2 (PCR) Not Detected (NotDetected) 10/20/23 22:06 Parainfluenza 3 (PCR) Not Detected (NotDetected) 10/20/23 22:06 Parainfluenza 4 (PCR) Not Detected (NotDetected) 10/20/23 22:06 RSV (PCR) Not Detected (NotDetected) 10/20/23 22:06 Entero/Rhino (PCR) Not Detected (NotDetected) 10/20/23 22:06 Impressions Chest X-Ray 10/20/23 20:04 SINGLE VIEW CHEST CLINICAL HISTORY: Dyspnea FINDINGS: An AP, portable, upright chest radiograph is compared to study dated 12/28/2022. The examination is degraded by portable technique and patient rotation. The heart is enlarged noting atherosclerotic calcification of the thoracic aorta. The pulmonary vasculature is noncongested. Chronic interstitial thickening is similar to previous. There is mild bibasilar scarring/atelectasis. The lungs and pleural spaces are otherwise clear. No pneumothorax is seen. The skeletal structures are osteopenic. The bony thorax is grossly intact. IMPRESSION: Cardiomegaly with no active disease in the chest. ACT 112: Negative or not required by law. Electronically signed by: Martinez Cuadra M.D. 10/20/2023 9:55 PM ECG Additional Comments: ECG. Normal sinus rhythm with a sinus arrhythmia rate of 99. Right bundle branch block. Left anterior fascicle block. QTc 523. Code Status & VTE Plan VTE Prophylaxis Plan VTE Prophylaxis will be ordered: Yes
[2023-10-21] MEDS ORDERED: GLUCAGON FOR INJ 1 MG VIAL SQ PRN ×2 (01:21)
[2023-10-21] MEDS ORDERED: traMADol HCL 50 MG TABLET PO PRN (01:21)
[2023-10-21] MEDS ORDERED: NITROGLYCERIN SL 0.4 MG/TAB TAB SL PRN (01:21)
[2023-10-21] MEDS ORDERED: GLUCOSE 40% GEL 15 GM TUBE PO PRN ×2 (01:21)
[2023-10-21] MEDS ORDERED: CEFEPIME 2,000 MG in SYRINGE 0 ML IV SCH (01:21)
[2023-10-21] MEDS ORDERED: PHARMACY GLYCEMIC MGMT CONSULT PRN (01:21)
[2023-10-21] MEDS ORDERED: CARBOHYDRATES FOR HYPOGLYCEMIA PO PRN ×2 (01:21)
[2023-10-21] MEDS ORDERED: GLUCOSE 10 TAB/TUBE PO PRN ×2 (01:21)
[2023-10-21] MEDS ORDERED: ACETAMINOPHEN 325 MG TAB PO PRN (01:21)
[2023-10-21] MEDS ORDERED: DEXTROSE 50% 50 ML SYRINGE IV PRN ×2 (01:21)
[2023-10-21] MEDS ORDERED: CEFEPIME 2,000 MG/20 ML VIAL ONE (02:26)
[2023-10-21] MEDS: DOXYCYCLINE HYCLATE 100 MG in DEXTROSE 5% MINI-B 100 ML IV SCH ×2 (02:36→14:13)
[2023-10-21] MEDS: SODIUM CHLORIDE 0.9% 1,000 ML IV SCH ×3 (02:36→19:07)
[2023-10-21] MEDS: INSULIN ASPART PER UNIT CHARGE SC SCH ×5 (02:59→20:41)
--- OUTSIDE RECORDS SUMMARY | 2023-10-21 05:12 | External Medical Summary | Summary of Care ---
Author Name Unknown Organization [facility] Address [address] [facility] [place] [address] Phone [phone] Care Team Providers Care Appliance Repairer Name Role Phone Christiano Felton MD Primary Care Provider Reason for Referral * Precert (Within 10 days (routine)) - Pending Review Specialty Diagnoses / Procedures Referred By Contac t Referred To Contact Radiology Diagnoses Aortic valve stenosis, etiology of cardiac valve disease unspecified Paroxysmal atrial flutter (HCC) Chest pain, unspecified type Abnormal echocardiogram LV dysfunction Procedures NM MYOCARD PERF IMG SPECT MULT STUDIES WITH PHARM INTERV Barbara Monge PA-C [address] [place] [id number] Referral ID Status Reason Start Date Expiration Date Visits Requested Visits Authorized [id number] Pending Review Precert 11/01/2023 999 999 Reason for Visit * Reason Onset Date Comments Information 09/23/2023 Encounter Details Date Type Department Care Team (Late st Contact Info) Description 09/23/2023 Telephone Cardiology, [facility] [address] [place] [phone] Barbara Monge PA-C [address] [place] [phone] Information Allergies Active Allergy Reactions Criticality Noted Date Comments Adhesive Tape 07/22/2017 Penicillins 09/07/1999 Difficulty breathing Rosiglitazone Maleate 12/25/2004 possible relation to DVT, PE's documented as of this encounter (statuses as of 10/19/2023) Medications Medication Sig Dispensed Refills Start Date End Date Status VOLTAREN 1 % TD GELIndications:Gener alized osteoarthritis Apply to affected area(knees) 4 grams up to 4 times daily 100 g 5 08/29/2013 Active Vitamin B-12 1000 MCG Sublingual Tablet SublingualIndication s:B12 deficiency Take 1 Tab by mouth daily. 90 Tab 1 12/12/2020 Active Vitamin D3 50 MCG (2000 UT) Oral Capsule Take 1 Cap by mouth every other day. 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 300 Strip 3 03/25/2023 Active Pregabalin 150 MG Oral Capsule (Lyrica)Indications: Type 2 diabetes mellitus with diabetic nephropathy, with long-term current use of insulin (HCC) Take 1 Capsule by mouth in the morning and 1 Capsule before bedtime. 60 Capsule 11 06/29/2023 Active Pantoprazole Sodium 40 MG Oral Tablet Delayed Release (Protonix) TAKE 1 TABLET BY MOUTH ONCE DAILY BEFORE BREAKFAST 90 Tablet 3 07/06/2023 Active metFORMIN HCl 1000 MG Oral Tablet (Glucophage)Indicati ons:Type 2 diabetes mellitus with stage 3b chronic kidney disease, with long-term current use of insulin (HCC) TAKE 1 TABLET BY MOUTH TWICE DAILY; morning and before bedtime 180 Tablet 2 07/31/2023 Active Furosemide 40 MG Oral Tablet (Lasix)Indications:H eart failure, diastolic, due to HTN (HCC),Chronic acquired lymphedema TAKE ONE TABLET BY MOUTH IN THE MORNING AND ONE BEFORE BEDTIME 180 Tablet 1 08/15/2023 Active Insulin Glargine 100 UNIT/ML Subcutaneous Solution (Lantus)Indications: Type 2 diabetes mellitus with hemoglobin A1c goal of less than 8.0% (HCC) INJECT 36 UNITS UNDER THE SKIN IN THE MORNING AND 42 UNITS IN THE EVENING 90 mL 0 08/19/2023 Active BD Insulin Syringe U-500 31G X 6MM 0.5 ML (Insulin Syringe/Needle U-500)Indications:Ty pe 2 diabetes mellitus with stage 1 chronic kidney disease, unspecified whether halfway insulin use Use as directed. Use for insulin injections twice daily [id number] 200 Each 3 08/24/2023 Active Metoprolol Tartrate 25 MG Oral Tablet (Lopressor)Indicatio ns:Paroxysmal atrial flutter (HCC),Aortic valve stenosis, etiology of cardiac valve disease unspecified,HTN, goal below 140/90 Take 1 Tablet by mouth in the morning and 1 Tablet before bedtime. 90 Tablet 1 09/08/2023 Active Ferrous Sulfate 325 (65 Fe) MG Oral Tablet (Feosol)Indications: Iron deficiency anemia, unspecified iron deficiency anemia type Take one tab by mouth every day 90 Tablet 3 09/20/2023 Active documented as of this encounter (statuses as of 10/19/2023) Active Problems Problem Noted Date Diagnosed Date Typical atrial flutter 09/29/2022 Type 2 diabetes mellitus wit h diabetic nephropathy, with long-term current use of insulin 11/17/2021 Action tremor 11/17/2021 Chronic kidney disease, stage 3b 10/26/2021 Overview: Per CKD protocol Gastroesophageal reflux disease without esophagi tis 03/11/2021 NSVT (nonsustained ventricular tachycardia) 11/15 Atrial flutter 12/04/2020 Heart failure, diastolic, due to HTN 12/04/2020 Nonrheumatic aortic valve stenosis 12/04/2020 Current moderate episode of major depressive disorder without prior episode 12/04/2020 Cholecystitis 12/03/2020 Supplemental oxygen dependent 12/03/2020 Left anterior fascicular block 12/03/2020 Impaired mobility and ADLs 12/03/2020 Generalized weakness 12/03/2020 Osteoporosis due to aromatase inhibitor 07/09/20 Malignant neoplasm of upper- outer quadrant of left breast in female, estrogen receptor positive 01/28/2020 History of nonmelanoma skin cancer 02/09/2018 Overview: 2015 left ala - 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 GENERAL OSTEOARTHROSIS 09/22/1999 Lymphedema documented as of this encounter (statuses as of 10/19/2023) Resolved Problems Problem Noted Date Diagnosed Date Resolved Date Chronic kidney disease, stage 3a 2021 10/29/2021 Overview: Per CKD protocol Sepsis due to Escherichia co li with acute renal failure without septic shock 12/03/202012/04 SHAYNE (acute kidney injury) 12/03/2020 Pulmonary embolus 07/30/2019 12/04/2020 HTN, goal below 140/80 07/03/201201/13 Overview: Per HTN Protocol #27. Low back pain 06/07/2012 01/17/2018 HTN, GOAL BELOW 130/80 12/10/200907/06 Overview: Per HTN Taxonomy. DM type 2, not at goal 12/21/200603/05 Bilateral - PULMONARY EMBOLUS 08/17/2004 01/17/2018 Anticoagulation management encounter 08/12/2004 01/17/2018 Other pulmonary embolism and infarction 08/12/2004 01/17/2018 Myalgia and myositis 11/28/2000 018 Malaise and fatigue 11/28/2000 01/18/20 18 Abdominal pain, epigastric 04/14/2000 0 01/17/2018 Type 2 diabetes mellitus wit h hemoglobin A1c goal of less than 7.0% 09/24/1999 10/22/2013 Overview: ICD-10 update of inactive term HTN, goal below 140/90 09/22/199912/10 Overview: Per HTN Taxonomy. JOINT PAIN-SHLDER 09/22/1999 01/17/2018 OBESITY, UNSPECIFIED 09/22/1999 010 Overview: Per Obesity Taxonomy Reflux esophagitis documented as of this encounter (statuses as of 10/19/2023) Immunizations Name Administration Dates Next Due Influenza, Whole Virus 09/14/2000 Pneumococcal Conjugate Vacc, 13 Valent (Prevnar) 08/09/2017 Pneumococcal Polysaccharide PPV23 (Pneumovax) 07/24/2008,08/12/2003 SEASONAL INFLUENZA, PF, 6 M & Above, IM , (FLULAVAL or FLUZONE) 08/04/2020,07/30/2019,09/04/2018,09/12 Seasonal Influenza, Quadriva lent Hd (Fluzone Hd) 09/08/2023,07/21/2022,08/31/2021 Seasonal Influenza, Quadriva lent, No Preserve, IM 09/01/2016,08/12/2015 Seasonal Influenza, Split, I IV3, With Preserve, Inj 09/03/2014,08/29/2013,08/08/2012,08/11,08/10/2010,07/28/2009,08/26/2008 ,09/12/2006,09/10/2005,09/22/2004,08/15 TD - Tetanus/Diptheria (ADULT) 06/14/1988 TDAP (age 10 and older)(Boostrix) 01/21/2014 documented as of this encounter Social History Tobacco Use Types Packs/Day Years Used Date Smoking Tobacco: Never Smokeless Tobacco: Never Alcohol Use Standard Drinks/Week Comments No 0 (1 standard drink = 0.6 oz pur e alcohol) PHQ-2 Answer Date Recorded PHQ-2 Score 8 08/04/2020 Hunger Vital Sign Answer Date Recorded Worried About Running Out of Food in the Last Ye ar Never true 01/28/2020 Ran Out of Food in the Last Year Never true 01/28/2020 Sex and Gender Information Value Date Recorded Sex Assigned at Female 07/30/2019 1:32 PM EDT Gender Identity Female 07/30/2019 1:32 PM EDT Sexual Orientation Straight 07/30/2019 1: 32 PM EDT Job Start Date Occupation Industry Not on file Not on file Not on file documented as of this encounter Miscellaneous Notes * Telephone Encounter - Barbara Monge PA-C - 10/19/2023 12:55 PM EST Noted. ASA 81 mg daily is acceptable to take with coumadin. Statin is indicated with DM Can discuss these changes at upcoming office visit with Dr Vegas. Please try to schedule nuclear stress test (2 day study) prior to f/u appt with Dr. Vegas (sending as FYI) * Telephone Encounter - Lilliana Lai OSA - 10/19/2023 7:16 AM EST Nuc stress test needed per Sommer Urban. * Telephone Encounter - Xena Shah LPN - 10/18/2023 2:43 PM EST Spoke with patient by phone, gave information in this encounter. Verbalized understanding Pt states she is not allowed to take aspirin while on warfarin. Said she does not want to take atorvastatin "add another pill" because her "cholesterol is always good." Agreeable to nuclear stress test. Pt stated she is currently ill with URI, taking a covid test later today. * Telephone Encounter - Ameena Hernandez LPN - 09/23/2023 11:03 AM EST Attempted to contact patient to review results. Patient answered, but then phone disconnected. Attempted to call back with no dial tone Will attempt again at a later time * Telephone Encounter - Ameena Hernandez LPN - 09/23/2023 11:02 AM EST ----- Message from Barbara Monge PA-C sent at 09/22/2023 5:55 PM EST ----- Echo results reviewed. Normal LVEF at 55-59% Small apical wall motion abnormality, possible old [place]. Moderate aortic stenosis. Compared to prior echo- aortic stenosis is stable Wall motion abnormality is new. Recommend proceeding with nuclear lexiscan stress test -2 day study - to evaluate for scar vs ischemia In the meantime, patient needs to start Aspirin 81 mg daily (if not currently taking) Also recommend starting atorvastatin 20 mg daily documented in this encounter Plan of Treatment Upcoming Encounters Date Type Department Care Team (Late st Contact Info) Description 10/25/2023 2:20 PM EST Office Visit [facility] [address] [facility] [phone] Christiano Felton MD [address] [place] [address] 11/02/2023 10:30 AM EST Office Visit Cardiology, [facility] 132 [facility] [place] [address] Fareed Vegas DO 132 [facility] [place] [address] 11/09/2023 8:10 AM EST Laboratory Lab Mobile Phlebotomy [facility] [address] [place] [address] [facility], [facility] Mobile Home Draw [address] [place] [address] 11/10/2023 6:00 AM EST Anticoagulation Pharmacy Call Center [address] [place] [address] [facility] 58 60 [facility] [address] 11/10/2023 2:00 PM EST Imaging Radiology, [facility] [address] [facility] [place] [address] 11/22/2023 11:00 AM EST Imaging [facility] 2nd Floor Cardiology, [place] [address] [facility] [place] [address] 11/24/2023 10:15 AM EST Imaging [facility] 2nd Floor Cardiology, [place] [address] [facility] [place] [address] 02/03/2024 12:30 PM EDT Laboratory Laboratory [place], [place] [address] [place] [phone] [place], [facility] 200 [facility] [place] [address] 02/03/2024 1:30 PM EDT Immunization/Injection Hematology/Oncology Treatment, [place] [address] [place] [address] Nurse, Med 200 [facility] [place] [address] 03/12/2024 10:00 AM EDT Imaging Radiology [facility] 1st [facility], [place] 132 [facility] [place] [address] 03/20/2024 2:30 PM EDT Office Visit Hematology/Oncology [facility] [place] 200 [facility] [place] [address] Caroline Guerrier CRNP 400 [facility] [place] [address] Scheduled Orders Name Type Priority Associated Diagnoses Orde r Schedule NM MYOCARD PERF IMG SPECT MULT STUDIES WITH PHARM INTERV Cardiology Routine Aortic valve stenosis, etiology of cardiac valve disease unspecified Paroxysmal atrial flutter (HCC) Chest pain, unspecified type Abnormal echocardiogram LV dysfunction Expected: 11/01/2023 (Approximate), Expires: 11/18/2024 Health Maintenance Due Date Last Done Comments Hepatitis B (1 of 3 - Risk 3-dose series) 2002 Depression Screening 08/04/2021 08/04/2020 Diabetic Eye Exam 05/07/2023 05/07/2022, , 04/02/2020, Additional history exists Albumin/Creatinine Ratio 06/02/2023 022, 01/24/2019, 02/08/2018, Additional history exists Diabetic Foot Exam 06/02/2023 06/02/2022, 0 01/06/2021, 01/23/2019, Additional history exists COVID-19 Vaccine ( season) 2023 01/03/2021, 12/13/2020 HbA1c 12/30/2023 06/29/2023, 01/12, 02/03/2022, Additional history exists DTaP,Tdap,and Td Vaccines (2 - Td or Tdap) 01/22/2024 01/21/2014, 06/14/1988 GFR 03/09/2024 09/08/2023, 07/16, 05/26/2023, Additional history exists DXA Scan 06/02/2024 06/02/2022 (Decl ined), 03/26/2019, 03/21/2017, Additional history exists CKD PHOS USE SMARTSET 42448 08/05/202407/16, 05/26/2023, 03/18/2023, Additional history exists CKD HGB USE SMARTSET 85784 10/10/202410/10, 10/10/2023, 08/08/2023, Additional history exists Pneumococcal Vaccine: 65+ Years Completed 08/09/2017, 07/24/2008, 08/12/2003 VITAMIN D LEVEL ONCE IN A LIFETIME-USE SMARTSET# [id number] Completed 11/02/2017, 08/29/2013, 06/20/2012, Additional history exists Influenza Vaccine (FLU shot) Completed 09/08/2023, 07/21/2022, 08/31/2021, Additional history exists GARDASIL-HPV IMMUNIZATION SERIES Aged Out No longer eligible based on patient's age to complete this topic MENINGOCOCCAL (MENACTRA/MENVEO) Aged Out No longer eligible based on patient's age to complete this topic Zoster Vaccines Discontinued documented as of this encounter Medical Devices Not on filedocumented as of this encounter Visit Diagnoses Diagnosis Aortic valve stenosis, etiology of cardiac valve disease unspecified- Primary Paroxysmal atrial flutter (HCC) Atrial flutter Chest pain, unspecified type Abnormal echocardiogram Nonspecific (abnormal) findings on radiological and other examination of other intrathoracic organs LV dysfunction Heart disease, unspecified documented in this encounter Care Teams Appliance Repairer Relationship Specialty Start Date End Date Christiano Felton MD [address] [place] [address] PCP - General 12/30/1997 documented as of this encounter
--- OUTSIDE RECORDS SUMMARY | 2023-10-21 05:12 | External Medical Summary | Summary of Care ---
Author Name Unknown Organization [facility] Address [address] [facility] [place] [address] Phone [phone] Care Team Providers Care Special Makeup Fx Artist Instructor Name Role Phone Christiano Felton MD Primary Care Provider [phone] Reason for Referral * Precert (Within 10 days (routine)) - Pending Review Specialty Diagnoses / Procedures Referred By Contac t Referred To Contact Radiology Diagnoses Aortic valve stenosis, etiology of cardiac valve disease unspecified Paroxysmal atrial flutter (HCC) Chest pain, unspecified type Abnormal echocardiogram LV dysfunction Procedures NM MYOCARD PERF IMG SPECT MULT STUDIES WITH PHARM INTERV Barbara Monge PA-C [address] [facility] [place] [address] Referral ID Status Reason Start Date Expiration Date Visits Requested Visits Authorized [id number] Pending Review Precert 11/01/[phone] Reason for Visit * Reason Onset Date Comments Information 09/23/2023 Encounter Details Date Type Department Care Team (Late st Contact Info) Description 09/23/2023 Telephone Cardiology, [facility] [address] [place] [phone] Barbara Monge PA-C [address] [place] [phone] Information Allergies Active Allergy Reactions Criticality Noted [...] (Jantoven)Indication s:History of pulmonary embolism,Anticoagula tion management encounter,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 1 11/25/2008 [...] 010 Overview: Per Obesity Taxonomy Reflux esophagitis 1 documented as of this encounter (statuses as of 10/19/2023) Immunizations Name Administration Dates Next Due Pneumococcal Conjugate Vacc, 13 Valent (Prevnar) 08/09/2017 Pneumococcal Polysaccharide PPV23 (Pneumovax) 07/24/2008 SEASONAL INFLUENZA, PF, 6 M & Above, IM , (FLULAVAL or FLUZONE) 08/04/2020,07/30/2019,09/04/2018,09/12 Seasonal Influenza, Quadriva lent Hd (Fluzone Hd) 09/08/2023,07/21/2022,08/31/2021 Seasonal Influenza, Quadriva lent, No Preserve, IM 09/01/2016,08/12/2015 Seasonal Influenza, Split, I IV3, With Preserve, Inj 09/03/2014,08/29/2013,08/08/2012,08/11,08/10/2010,07/28/2009,08/26/2008 ,09/12/2006 TDAP (age 10 and older)(Boostrix) 01/21/2014 documented [...] encounter Miscellaneous Notes * Telephone Encounter - Lilliana Lai OSA [...] Small apical wall motion abnormality, possible old [place]. Moderate aortic stenosis. Compared to prior echo- [...] Description 10/25/2023 2:20 PM EST Office Visit [facility] [address] [facility] [phone] Christiano Felton MD [address] [facility] [phone] 11/02/2023 10:30 AM EST Office Visit Cardiology, [facility] [address] [place] [address] Fareed Vegas, DO [address] [place] [address] 11/09/2023 8:10 AM EST Laboratory Lab [place] [facility] [address] [place] [address] [facility] Mobile Home Draw [address] [place] [address] 11/10/2023 6:00 AM EST Anticoagulation Pharmacy Call Center [address] [facility] [address] [facility], [facility] [address] [facility] [address] 11/10/2023 2:00 PM EST Imaging Radiology, [address] [place] [address] 02/03/2024 12:30 PM EDT Laboratory Laboratory [facility] [place] 200 [place] [address] Deisy Wayne [address] [facility] [place] [address] 02/03/2024 1:30 PM EDT Immunization/Injection Hematology/Oncology Treatment, [place] [address] [place] [address] Nurse, Med 4 200 [place] [address] 03/12/2024 10:00 AM EDT Imaging Radiology [address] 132 [facility] [place] [address] 03/20/2024 2:30 PM EDT Office Visit Hematology/Oncology [facility] [place] 200 [place] [address] Caroline Guerrier CRNP 400 [facility] [place] [address] Scheduled Orders Name Type Priority Associated Diagnoses [...] Additional history exists CKD PHOS USE SMARTSET 54376 08/05/202407/16, 05/26/2023, 03/18/2023, Additional history exists CKD HGB USE SMARTSET 07406 10/10/202410/10, 10/10/2023, 08/08/2023, Additional history exists Pneumococcal Vaccine: 65+ Years Completed 08/09/2017, 07/24/2008, 08/12/2003 VITAMIN D LEVEL ONCE IN A LIFETIME-USE SMARTSET# [id number] Completed 11/02/2017, 08/29/2013, 06/20/2012, Additional history exists [...] unspecified documented in this encounter Care Teams Special Makeup Fx Artist Instructor Relationship Specialty Start Date End Date Christiano Felton MD [address] [place] [address] PCP - General 12/30/1997 documented as of this encounter
--- OUTSIDE RECORDS SUMMARY | 2023-10-21 05:12 | External Medical Summary | Summary of Care ---
Author Name Unknown Organization [facility] Address [address] [facility] [place] [address] Phone [phone] Care Team Providers Care Search Marketing Coordinator Name Role Phone Christiano Felton MD Primary Care Provider [phone] Reason for Referral * Precert (Within 10 days (routine)) - Pending Review Specialty Diagnoses / Procedures Referred By Contac t Referred To Contact Radiology Diagnoses Aortic valve stenosis, etiology of cardiac valve disease unspecified Paroxysmal atrial flutter (HCC) Chest pain, unspecified type Abnormal echocardiogram LV dysfunction Procedures NM MYOCARD PERF IMG SPECT MULT STUDIES WITH PHARM INTERV Barbara Monge PA-C [address] [place] [phone] Referral ID Status Reason Start Date Expiration Date Visits Requested Visits Authorized [id number] Pending Review Precert 11/01/2023 999 999 Reason for Visit * Reason Onset Date Comments Information 09/23/2023 Encounter Details Date Type Department Care Team (Late st Contact Info) Description 09/23/2023 Telephone Cardiology, [facility] [address] [place] [phone] Barbara Monge PA-C [address] [place] [phone] Information Allergies Active Allergy Reactions Criticality Noted [...] (Jantoven)Indication s:History of pulmonary embolism,Anticoagula tion management encounter,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 * Telephone Encounter - Barbara Monge PA-C [...] Small apical wall motion abnormality, possible old [place]. Moderate aortic stenosis. Compared to prior echo- [...] Description 10/25/2023 2:20 PM EST Office Visit [facility] [address] [place] [phone] Christiano Felton MD [address] [place] [address] 11/02/2023 10:30 AM EST Office Visit Cardiology, [facility] [address] [facility] [place] [address] [place], [address] [place] [address] 11/09/2023 8:10 AM EST Laboratory Lab Mobile Phlebotomy [facility] [address] [place] [address] [facility], [facility] Mobile Home Draw [address] [place] [address] 11/10/2023 6:00 AM EST Anticoagulation Pharmacy Call Center WB 58[address]60 [facility] [place] [address] [facility] [address] [facility] [place] [address] 11/10/2023 2:00 PM EST Imaging Radiology, [address] [place] [address] 11/22/2023 11:00 AM EST Imaging [facility]nd [facility] [address] [place] [address] 11/24/2023 10:15 AM EST Imaging [address] [facility] 132 [facility] [place] [address] 02/03/2024 12:30 PM EDT Laboratory Laboratory [facility] [address] [place] [phone] [place], [facility] 200 [facility] [place] [address] 02/03/2024 1:30 PM EDT Immunization/Injection Hematology/Oncology Treatment, [place] [address] [place] [address] Nurse, Med 200 [facility] [place] [address] 03/12/2024 10:00 AM EDT Imaging Radiology [address] 132 [facility] [place] [address] 03/20/2024 2:30 PM EDT Office Visit Hematology/Oncology [facility] [place] 200 [facility] [place] [address] Caroline Guerrier CRNP 400 [facility] [place] [address] Scheduled Orders Name Type Priority Associated Diagnoses [...] Additional history exists CKD PHOS USE SMARTSET 01781 08/05/202407/16, 05/26/2023, 03/18/2023, Additional history exists CKD HGB USE SMARTSET 08485 10/10/202410/10, 10/10/2023, 08/08/2023, Additional history exists Pneumococcal Vaccine: 65+ Years Completed 08/09/2017, 07/24/2008, 08/12/2003 VITAMIN D LEVEL ONCE IN A LIFETIME-USE SMARTSET# [id number] Completed 11/02/2017, 08/29/2013, 06/20/2012, Additional history exists [...] unspecified documented in this encounter Care Teams Search Marketing Coordinator Relationship Specialty Start Date End Date Christiano Felton MD [address] [place] [address] PCP - General 12/30/1997 documented as of this encounter
--- OUTSIDE RECORDS SUMMARY | 2023-10-21 05:12 | External Medical Summary | Summary of Care ---
Author Name Unknown Organization [facility] Address [address] [facility] [place] [address] Phone [phone] Care Team Providers Care Perl Developer Name Role Phone Christiano Felton MD Primary Care Provider [phone] Reason for Referral * Precert (Within 10 days (routine)) - Pending Review Specialty Diagnoses / Procedures Referred By Contac t Referred To Contact Radiology Diagnoses Aortic valve stenosis, etiology of cardiac valve disease unspecified Paroxysmal atrial flutter (HCC) Chest pain, unspecified type Abnormal echocardiogram LV dysfunction Procedures NM MYOCARD PERF IMG SPECT MULT STUDIES WITH PHARM INTERV Barbara Monge PA-C [address] [place] [phone] Referral ID Status Reason Start Date Expiration Date Visits Requested Visits Authorized [id number] Pending Review Precert 11/01/2023 999 999 Reason for Visit * Reason Onset Date Comments Information 09/23/2023 Encounter Details Date Type Department Care Team (Late st Contact Info) Description 09/23/2023 Telephone Cardiology, [facility] [address] [place] [phone] Barbara Monge PA-C [address] [place] [phone] Information Allergies Active Allergy Reactions Criticality Noted [...] (Jantoven)Indication s:History of pulmonary embolism,Anticoagula tion management encounter,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 Moderate aortic stenosis. Compared to prior echo- [...] Description 10/25/2023 2:20 PM EST Office Visit [facility] [address] [place] [phone] Christiano Felton MD [address] [place] [address] 11/02/2023 10:30 AM EST Office Visit Cardiology, [facility] [address] [facility] [place] [address] [place], [address] [place] [address] 11/09/2023 8:10 AM EST Laboratory Lab Mobile Phlebotomy [facility] [address] [place] [address] [facility] Mobile Home Draw [address] [place] [address] 11/10/2023 6:00 AM EST Anticoagulation Pharmacy Call Center WB [address]60 [facility] [place] [address] [facility] 58 60 [facility] [place] [address] 11/10/2023 2:00 PM EST Imaging Radiology, [address] [place] [address] 11/22/2023 11:00 AM EST Imaging [facility] 2nd [facility] [address] [place] [address] 11/24/2023 10:15 AM EST Imaging [address] [facility] 132 [facility] [place] [address] 02/03/2024 12:30 PM EDT Laboratory Laboratory [facility] [address] [place] [phone] [place] 200 [facility] [place] [address] 02/03/2024 1:30 PM EDT Immunization/Injection Hematology/Oncology Treatment, [place] [address] [place] [address] Nurse, Med 200 [facility] [place] [address] 03/12/2024 10:00 AM EDT Imaging Radiology [address] 132 [facility] [place] [address] 03/20/2024 2:30 PM EDT Office Visit Hematology/Oncology [facility] [place] 200 [facility] [place] [address] Caroline Guerrier CRNP 400 [facility] [place] [address] Scheduled Orders Name Type Priority Associated Diagnoses [...] Additional history exists CKD PHOS USE SMARTSET 43194 08/05/202407/16, 05/26/2023, 03/18/2023, Additional history exists CKD HGB USE SMARTSET 64396 10/10/202410/10, 10/10/2023, 08/08/2023, Additional history exists Pneumococcal Vaccine: 65+ Years Completed 08/09/2017, 07/24/2008, 08/12/2003 VITAMIN D LEVEL ONCE IN A LIFETIME-USE SMARTSET# [id number] Completed 11/02/2017, 08/29/2013, 06/20/2012, Additional history exists [...] unspecified documented in this encounter Care Teams Perl Developer Relationship Specialty Start Date End Date Christiano Felton MD [address] [place] [address] PCP - General 12/30/1997 documented as of this encounter
[2023-10-21 06:07] LABS: Basophils # (auto) 0.08 K/uL (0.00-0.20); Basophils % (auto) 0.7 %; Eosinophils # (auto) 0.12 K/uL (0.00-0.50); Eosinophils % (auto) 1.1 %; Hematocrit (blood only) 34.3 % (37.0-47.0); Immature Granulocytes # (auto) 0.25 K/uL (0.01-0.20); Immature Granulocytes % (auto) 2.3 %; Lymphocytes # (auto) 1.78 K/uL (1.20-3.40); Lymphocytes % (auto) 16.1 %; Mean Corpuscular Hemoglobin 26.8 pg (25.0-34.0); Mean Corpuscular Hgb Conc 32.1 g/dL (32.0-36.0); Mean Corpuscular Volume 83.5 fL (80.0-100.0); Mean Platelet Volume 11.3 fL (9.4-12.4); Monocytes # (auto) 1.05 K/uL (0.11-0.59); Monocytes % (auto) 9.5 %; Neutrophils # (auto) 7.78 K/uL (1.40-6.50); Neutrophils % (auto) 70.3 %; Platelet Count 300 K/uL (130-400); RDW Coefficient of Variation 15.7 % (11.5-14.5); RDW Standard Deviation 47.6 fL (36.4-46.3); Red Blood Count 4.11 M/uL (4.20-5.40); White Blood Count 11.06 K/ul (4.8-10.8)
[2023-10-21 06:22] LABS: BUN Creatinine Ratio 14.6 (10-20); Calcium 8.7 mg/dl (8.6-10.3); Creatinine Clr Calc Pharmacy 58.9 ml/min; Est GFR (African American) 64.3 ml/min; Est GFR (Non-African American) 55.5 ml/min; Magnesium 1.9 mg/dl (1.7-2.4); Potassium 3.5 mmol/L (3.5-5.1)
[2023-10-21 06:28] LABS: Troponin I High Sensitivity 37.8 pg/ml (0-14)
[2023-10-21 06:31] LABS: INR 1.7 (0.9-1.1); Prothrombin Time 18.2 Seconds (9.0-12.0)
--- NOTE | 2023-10-21 07:26 | Hospitalist Progress Note ---
Date of Service October 21, 2023 Assessment & Plan (1) Severe sepsis: Plan: 83-year-old female with past med history significant for type 2 diabetes, diabetic polyneuropathy, obstructive sleep apnea noncompliant with CPAP on 2 L oxygen, paroxysmal SVT, nonsustained ventricular tachycardia, A-flutter, diastolic CHF, hypertension, nonrheumatic aortic valve stenosis, obesity, GERD, CKD stage III, osteoarthritis, history of breast cancer, history of chronic lym phedema, history of PE, presents with feeling cold and hot, cough and shortness of breath fatigue and weakness going on for last 4 days and found to have UTI and sepsis. Severe sepsis UTI Lactic acid is 4.2 ->2 Symptoms going on last 4 days Received IV Azactam in the ER IV fluid Blood pressure normal, no tachycardia WBC 11.4 Verified with pharmacy, patient tolerated Rocephin and cefepime in the past Started IV cefepime on admission, will continue repeat lactic acid 2 Closely monitor Blood cultx - pending Urine cultx - gram negative bacilli Having cough and shortness of breath Respiratory bio fire negative Chest x-ray okay Possible bronchitis Empiric doxycycline History of obstructive sleep apnea Noncompliant with CPAP Uses 2 L oxygen History of chronic diastolic CHF Moderate aortic valve stenosis Holding Lasix Getting fluids Monitor for volume overload Mild elevation troponin Mostly demand ischemia, secondary to sepsis History of pulmonary embolism On Coumadin INR 2 History of a flutter Holding metoprolol for sepsis for now On Coumadin and INR therapeutic History of paroxysmal SVT Currently holding metoprolol restart as soon as possible. Hypertension Holding metoprolol and lisinopril Close monitor History of diabetes Continue with Lantus 30 units twice daily and insulin sliding scale Glycemic pharmacy consult GERD On Protonix History of breast cancer S/p left mastectomy On anastrozole Follows with heme/onco History of bilateral lower extremity lymphedema DVT prophylaxis On Coumadin Disposition Telemetry floor Full code Admission and Anticipated Discharge Date Admission Date: October 20, 2023 Subjective Pt seen in follow up of sepsis, UTI Currently sitting up in chair in NAD, reports feeling better already Occasionally has chills. No chest pain or shortness of breath. uses 2l of suppl. O2 all the time at baseline No abd. pain, says she was able to eat finally after 4 days discussed w/ RN at the bedside Review of Systems Review of Systems: All systems reviewed & are unremarkable except as noted in Subjective Physical Exam Physical Exam: General- obese elderly F in NAD Head- atraumatic Eyes- PERRL. ENT- oropharynx clear Neck- supple, no JVD. Lungs- clear to auscultation , no wheezing or crackles. Heart- regular rhythm; no murmur, no gallop. Abdomen- normal bowel sounds, soft, nontender, no distension. Extremities- b/l lower extremity lymphedema present. no erythema seen. Neuro- alert, oriented x 3; PERRL, no facial palsy; no dysarthria; obeys commands, answers questions appropriately, moves extremities Skin- warm & dry Results & Data Results & Data Vital Signs (Past 12 Hours) Vital Signs Temp Pulse Pulse Resp BP BP Pulse Ox 10/21/23 07:07 73 10/21/23 02:42 80 27 H 138/101 H 99 10/21/23 01:49 10/21/23 01:49 75 26 H 98 10/21/23 01:28 75 10/21/23 01:00 72 23 117/79 10/21/23 00:00 83 19 100 10/20/23 22:51 78 31 H 123/75 100 10/20/23 22:15 94 H 28 H 107/78 100 10/20/23 21:25 91 H 10/20/23 19:58 36.0 C L 113 H 26 H 129/76 98 Pulse Ox O2 Del Method O2 Del Method O2 Flow Rate O2 Flow Rate 10/21/23 07:07 10/21/23 02:42 Nasal Cannula 2 10/21/23 01:49 99 Nasal Cannula 2 10/21/23 01:49 Nasal Cannula 2 10/21/23 01:28 10/21/23 01:00 10/21/23 00:00 Nasal Cannula 3 10/20/23 22:51 Nasal Cannula 3 10/20/23 22:15 Nasal Cannula 3 10/20/23 21:25 10/20/23 19:58 Nasal Cannula 2 Laboratory Results 10/21/23 10/21/23 10/20/23 Range/Units 05:39 02:55 23:58 WBC 11.06 H (4.8-10.8) K/ul RBC 4.11 L (4.20-5.40) M/uL Hgb 11.0 L (12.0-16.0) g/dl Hct 34.3 L (37.0-47.0) % MCV 83.5 (80.0-100.0) fL MCH 26.8 (25.0-34.0) pg MCHC 32.1 (32.0-36.0) g/dL RDW Std Deviation 47.6 H (36.4-46.3) fL RDW Coeff of [place] 15.7 H (11.5-14.5) % Plt Count 300 (130-400) K/uL MPV 11.3 (9.4-12.4) fL Immature Gran % (Auto) 2.3 % Neut % (Auto) 70.3 % Lymph % (Auto) 16.1 % [place] % (Auto) 9.5 % Eos % (Auto) 1.1 % Baso % (Auto) 0.7 % Neut # (Auto) 7.78 H (1.40-6.50) K/uL Lymph # (Auto) 1.78 (1.20-3.40) K/uL [place] # (Auto) 1.05 H (0.11-0.59) K/uL Eos # (Auto) 0.12 (0.00-0.50) K/uL Baso # (Auto) 0.08 (0.00-0.20) K/uL Immature Gran # (Auto) 0.25 H (0.01-0.20) K/uL PT 18.2 H (9.0-12.0) Seconds INR 1.7 H (0.9-1.1) APTT (21-31) Seconds PTT Ratio Sodium 138 (136-145) mmol/L Potassium 3.5 (3.5-5.1) mmol/L Chloride 103 (98-107) mmol/L Carbon Dioxide 27 (21-32) mmol/L Anion Gap 8 (3-11) BUN 14 (6-23) mg/dl Creatinine 0.96 (0.6-1.2) mg/dl Est Cr Clr Drug Dosing 58.9 Est GFR ( Amer) 64.3 ml/min Est GFR (Non-Af Amer) 55.5 ml/min BUN/Creatinine Ratio 14.6 (10-20) Glucose 162 H (70-99(Fasting)) mg/dl POC Glucose 165 H (70-99) mg/dl Estimat Average Glucose Pending Hemoglobin A1c Pending Lactate 2.0 (0.4-2.0) mmol/L Calcium 8.7 (8.6-10.3) mg/dl Magnesium 1.9 (1.7-2.4) mg/dl Total Bilirubin (0.2-1.0) mg/dl AST (13-39) U/L ALT (7-52) U/L Alkaline Phosphatase (34-104) U/L Troponin I High Sens 37.8 H D (0-14) pg/ml Total Protein (6.0-8.3) gm/dl Albumin (3.4-5.0) gm/dl Globulin (2.5-4.0) gm/dl Albumin/Globulin Ratio (0.9-2) Urine Color Urine Appearance (Clear) Urine pH (4.5-7.5) Ur Specific [place] (1.000-1.030) Urine Protein (Negative) Urine Glucose (UA) (Negative) Urine Ketones (Negative) Urine Blood (Negative) Urine Nitrite (Negative) Urine Bilirubin (Negative) Urine Urobilinogen (Negative) Ur Leukocyte Esterase (Negative) Urine WBC (Auto) (0-5) /hpf Urine RBC (Auto) (0-4) /hpf U Hyaline Cast (Auto) (0-5) /lpf U Epithel Cells (Auto) (0-5) /lpf Urine Bacteria (Auto) (Negative) Adenovirus (PCR) (NotDetected) B. pertussis DNA (PCR) (NotDetected) B.parapertussis DNA PCR (NotDetected) C. pneumoniae DNA (PCR) (NotDetected) Coronavirus OC43 (PCR) (NotDetected) Coronavirus HKU1 (PCR) (NotDetected) Coronavirus 229E (PCR) (NotDetected) SARS-CoV-2 (PCR) (NotDetected) Coronavirus NL63 (PCR) (NotDetected) Human Metapneumovir PCR (NotDetected) Influenza Type A (PCR) (NotDetected) Influenza Type B (PCR) (NotDetected) M. pneumoniae (PCR) (NotDetected) Parainfluenza 1 (PCR) (NotDetected) Parainfluenza 2 (PCR) (NotDetected) Parainfluenza 3 (PCR) (NotDetected) Parainfluenza 4 (PCR) (NotDetected) RSV (PCR) (NotDetected) Entero/Rhino (PCR) (NotDetected) 10/20/23 10/20/23 Range/Units 22:06 20:48 WBC 11.47 H (4.8-10.8) K/ul RBC 4.53 (4.20-5.40) M/uL Hgb 12.0 (12.0-16.0) g/dl Hct 37.1 (37.0-47.0) % MCV 81.9 (80.0-100.0) fL MCH 26.5 (25.0-34.0) pg MCHC 32.3 (32.0-36.0) g/dL RDW Std Deviation 46.0 (36.4-46.3) fL RDW Coeff of [place] 15.5 H (11.5-14.5) % Plt Count 350 (130-400) K/uL MPV 11.6 (9.4-12.4) fL Immature Gran % (Auto) 3.2 % Neut % (Auto) 74.5 % Lymph % (Auto) 13.1 % [place] % (Auto) 8.1 % Eos % (Auto) 0.3 % Baso % (Auto) 0.8 % Neut # (Auto) 8.54 H (1.40-6.50) K/uL Lymph # (Auto) 1.50 (1.20-3.40) K/uL [place] # (Auto) 0.93 H (0.11-0.59) K/uL Eos # (Auto) 0.04 (0.00-0.50) K/uL Baso # (Auto) 0.09 (0.00-0.20) K/uL Immature Gran # (Auto) 0.37 H (0.01-0.20) K/uL PT 20.6 H (9.0-12.0) Seconds INR 2.0 H (0.9-1.1) APTT 29 (21-31) Seconds PTT Ratio 1.0 Sodium 137 (136-145) mmol/L Potassium 3.7 (3.5-5.1) mmol/L Chloride 99 (98-107) mmol/L Carbon Dioxide 21 (21-32) mmol/L Anion Gap 17 H (3-11) BUN 15 (6-23) mg/dl Creatinine 1.03 (0.6-1.2) mg/dl Est Cr Clr Drug Dosing Not Reportable Est GFR ( Amer) 59.0 ml/min Est GFR (Non-Af Amer) 50.9 ml/min BUN/Creatinine Ratio 14.6 (10-20) Glucose 177 H (70-99(Fasting)) mg/dl POC Glucose (70-99) mg/dl Estimat Average Glucose Hemoglobin A1c Lactate 4.2 H* (0.4-2.0) mmol/L Calcium 9.4 (8.6-10.3) mg/dl Magnesium 1.8 (1.7-2.4) mg/dl Total Bilirubin 0.5 (0.2-1.0) mg/dl AST 38 (13-39) U/L ALT 16 (7-52) U/L Alkaline Phosphatase 50 (34-104) U/L Troponin I High Sens 21.9 H (0-14) pg/ml Total Protein 7.8 (6.0-8.3) gm/dl Albumin 4.0 (3.4-5.0) gm/dl Globulin 3.8 (2.5-4.0) gm/dl Albumin/Globulin Ratio 1.1 (0.9-2) Urine Color Yellow Urine Appearance Cloudy A (Clear) Urine pH >= 9.0 H (4.5-7.5) Ur Specific [place] 1.007 (1.000-1.030) Urine Protein Trace H (Negative) Urine Glucose (UA) Negative (Negative) Urine Ketones 1+ H (Negative) Urine Blood Trace H (Negative) Urine Nitrite Negative (Negative) Urine Bilirubin Negative (Negative) Urine Urobilinogen Negative (Negative) Ur Leukocyte Esterase 3+ H (Negative) Urine WBC (Auto) >30 H (0-5) /hpf Urine RBC (Auto) 0-4 (0-4) /hpf U Hyaline Cast (Auto) 1-5 (0-5) /lpf U Epithel Cells (Auto) 5-10 H (0-5) /lpf Urine Bacteria (Auto) 4+ H (Negative) Adenovirus (PCR) Not Detected (NotDetected) B. pertussis DNA (PCR) Not Detected (NotDetected) B.parapertussis DNA PCR Not Detected (NotDetected) C. pneumoniae DNA (PCR) Not Detected (NotDetected) Coronavirus OC43 (PCR) Not Detected (NotDetected) Coronavirus HKU1 (PCR) Not Detected (NotDetected) Coronavirus 229E (PCR) Not Detected (NotDetected) SARS-CoV-2 (PCR) Not Detected (NotDetected) Coronavirus NL63 (PCR) Not Detected (NotDetected) Human Metapneumovir PCR Not Detected (NotDetected) Influenza Type A (PCR) Not Detected (NotDetected) Influenza Type B (PCR) Not Detected (NotDetected) M. pneumoniae (PCR) Not Detected (NotDetected) Parainfluenza 1 (PCR) Not Detected (NotDetected) Parainfluenza 2 (PCR) Not Detected (NotDetected) Parainfluenza 3 (PCR) Not Detected (NotDetected) Parainfluenza 4 (PCR) Not Detected (NotDetected) RSV (PCR) Not Detected (NotDetected) Entero/Rhino (PCR) Not Detected (NotDetected) Medications Administered Current Inpatient Medications Acetaminophen (Acetaminophen 325 Mg Tab) 650 mg PO Q4H PRN PRN Reason: Pain or Fever Stop: 11/20/23 01:20 Anastrozole (Anastrozole 1 Mg Tab) 1 mg PO DAILY [facility] Stop: 11/20/23 08:59 Last Admin: 10/21/23 10:34 Dose: 1 mg Cyanocobalamin (Cyanocobalamin (B-12) 500 Mcg Tablet) 1,000 mcg PO DAILY [facility] Stop: 11/20/23 08:59 Last Admin: 10/21/23 10:35 Dose: 1,000 mcg Dextrose (Dextrose 50% 50 Ml Syringe) 25 - 50 ml IV UD PRN; Protocol PRN Reason: Hypoglycemia Protocol Stop: 11/20/23 01:20 Ferrous Sulfate (Ferrous Sulfate 325 Mg Tab) 325 mg PO DAILY [facility] Stop: 11/20/23 08:59 Last Admin: 10/21/23 10:35 Dose: 325 mg Glucagon (Glucagon For Inj 1 Mg Vial) 1 mg SQ UD PRN; Protocol PRN Reason: Hypoglycemia Protocol Stop: 11/20/23 01:20 Glucose (Glucose 10 Tab/Tube) 4 - 8 tab PO UD PRN; Protocol PRN Reason: Hypoglycemia Treatment Stop: 11/20/23 01:20 Glucose (Glucose 40% Gel 15 Gm Tube) 15 - 30 gm PO UD PRN; Protocol PRN Reason: Hypoglycemia Protocol Stop: 11/20/23 01:20 Sodium Chloride (Nss) 1,000 mls @ 125 mls/hr IV .Q8H [facility] Stop: 10/22/23 01:20 Last Admin: 10/21/23 10:50 Dose: 125 mls/hr Doxycycline Hyclate 100 mg/ (Dextrose) 100 mls @ 50 mls/hr IV Q12H [facility] Stop: 10/28/23 01:20 Last Admin: 10/21/23 14:13 Dose: 50 mls/hr Cefepime HCl 2,000 mg/ Syringe 20 mls @ 5 mls/min IV Q12H [facility] Stop: 10/31/23 13:59 Last Admin: 10/21/23 14:14 Dose: 5 mls/min Insulin Aspart (Insulin Aspart Per Unit Charge) 0 units SC ACHS [facility] Stop: 11/20/23 02:59 Last Admin: 10/21/23 14:12 Dose: 9 units Insulin Glargine (Lantus Per Unit Charge) 30 units SQ BID [facility] Stop: 11/20/23 08:59 Last Admin: 10/21/23 10:43 Dose: 30 units Miscellaneous (Carbohydrates For Hypoglycemia ) 15 - 30 gm PO UD PRN PRN Reason: Hypoglycemia Protocol Stop: 11/20/23 01:20 Miscellaneous Information (Pharmacy Glycemic Mgmt Consult) 1 each N/A UD PRN PRN Reason: Consult Stop: 11/20/23 01:20 Nitroglycerin (Nitroglycerin Sl 0.4 Mg/Tab Tab) 0.4 mg SL Q5M PRN PRN Reason: Chest Pain Stop: 11/20/23 01:20 Pantoprazole Sodium (Pantoprazole 40 Mg Tab) 40 mg PO DAILY [facility] Stop: 11/20/23 08:59 Last Admin: 10/21/23 10:36 Dose: 40 mg Pregabalin (Pregabalin 150 Mg Cap) 150 mg PO BID [facility] Stop: 11/20/23 08:59 Last Admin: 10/21/23 12:08 Dose: 150 mg Tramadol HCl (Tramadol Hcl 50 Mg Tablet) 50 mg PO DAILY PRN PRN Reason: Pain Stop: 11/20/23 01:20 Vitamin D (Cholecalciferol 1,000 Units 25 Mcg Tab) 2,000 units PO Q2D@0900 [facility] Stop: 11/21/23 08:59 Warfarin Sodium (Warfarin Sod 5 Mg Tab) 5 mg PO SuTuWeThFrSa@1600 [facility] Stop: 11/20/23 15:59 Warfarin Sodium (Warfarin Sod 2.5 Mg Tab) 2.5 mg PO Mo@1600 [facility] Stop: 11/23/23 15:59
[2023-10-21] MEDS ORDERED: POTASSIUM CHLORIDE CRTAB 20 MEQ TABCR PO STA ×2 (07:31→10:58)
[2023-10-21 08:47] LABS: Estimated Average Glucose 163 mg/dl; Hemoglobin A1C 7.3 % (4.5-5.6)
[2023-10-21] MEDS: ANASTROZOLE 1 MG TAB PO SCH (10:34)
[2023-10-21] MEDS: FERROUS SULFATE 325 MG TAB PO SCH (10:35)
[2023-10-21] MEDS: CYANOCOBALAMIN (B-12) 500 MCG TABLET PO SCH (10:35)
[2023-10-21] MEDS: PANTOprazole 40 MG TAB PO SCH (10:36)
[2023-10-21] MEDS: LANTUS PER UNIT CHARGE SQ SCH ×2 (10:43→20:41)
--- NOTE | 2023-10-21 11:59 | Pharmacy Report ---
Pharmacy Glycemic Short Note 2 - Date of Service October 21, 2023 - Glycemic Short BSG Results (Last 24 hours): 10/20/23 10/21/23 10/21/23 20:48 02:55 05:39 Glucose 177 H 162 H POC Glucose 165 H 10/21/23 09:39 Glucose POC Glucose 158 H OUTPATIENT ANTIDIABETIC REGIMEN: * Lantus 36 units SQ QAM, 42 units SQ QPM * Metformin 1 gm PO BID * HbA1c = 7.3% ASSESSMENT: * 83 y/o F admitted for severe Sepsis and UTI. Patient has history of Type 2 diabetes managed on basal insulin and oral Metformin at home. * Per initial orders from hospitalist, Lantus 30 units SQ BID started this AM. This is around 20% reduced from home dosing, therefore will continue with this for now and re-assess tomorrow. * Novolog started this AM based on stress of 2. PLAN FOR INPATIENT GLYCEMIC CONTROL: * Hold outpatient oral diabetes medications * Basal insulin * Lantus 30 units SQ BID * Bolus insulin * NovoLog per scale ACHS or Q6hrs while NPO * Goal Range: Low 110 mg/dL - High 140 mg/dL * Correction Factor: 20 mg/dL/unit * Nutritional / Prandial insulin per carb ratio of 1 unit per 6 grams CHO consumed
[2023-10-21] MEDS: PREGABALIN 150 MG CAP PO SCH ×2 (12:08→20:40)
--- NOTE | 2023-10-21 12:32 | Electrocardiogram Report ---
Test Reason : Blood Pressure : / mmHG Vent. Rate : 099 BPM Atrial Rate : 099 BPM P-R Int : 158 ms QRS Dur : 138 ms QT Int : 408 ms P-R-T Axes : 063 -69 083 degrees QTc Int : 523 ms Normal sinus rhythm with sinus arrhythmia Right bundle branch block Left anterior fascicular block Bifascicular block Left ventricular hypertrophy with repolarization abnormality ( R in aVL ) Abnormal ECG When compared with ECG of 18-OCT-2023 22:38, No significant change was found Confirmed by Vikram Aguirre ([id number]) on 10/21/2023 12:31:37 PM Referred By: REFERRED SELF Confirmed By:Vikram Aguirre
[2023-10-21] MEDS: CEFEPIME 2,000 MG in SYRINGE 0 ML IV SCH (14:14)
[2023-10-21] MEDS: WARFARIN SOD 5 MG TAB PO SCH (17:19)
[2023-10-22] MEDS: DOXYCYCLINE HYCLATE 100 MG in DEXTROSE 5% MINI-B 100 ML IV SCH ×2 (01:45→13:03)
[2023-10-22] MEDS: CEFEPIME 2,000 MG in SYRINGE 0 ML IV SCH ×2 (01:46→13:06)
[2023-10-22 06:09] LABS: Hematocrit (blood only) 30.6 % (37.0-47.0); Hemoglobin 9.6 g/dl (12.0-16.0); Mean Corpuscular Hgb Conc 31.4 g/dL (32.0-36.0); Mean Platelet Volume 11.2 fL (9.4-12.4); Platelet Count 227 K/uL (130-400); RDW Coefficient of Variation 15.9 % (11.5-14.5); RDW Standard Deviation 49.6 fL (36.4-46.3); Red Blood Count 3.56 M/uL (4.20-5.40); White Blood Count 8.24 K/ul (4.8-10.8)
[2023-10-22 06:27] LABS: BUN Creatinine Ratio 11.3 (10-20); Calcium 7.8 mg/dl (8.6-10.3); Creatinine Clr Calc Pharmacy 58.3 ml/min; Est GFR (African American) 63.5 ml/min; Est GFR (Non-African American) 54.8 ml/min; Magnesium 1.9 mg/dl (1.7-2.4); Phosphorus 2.9 mg/dl (2.5-4.9); Potassium 3.5 mmol/L (3.5-5.1)
[2023-10-22 06:37] LABS: INR 1.6 (0.9-1.1); Prothrombin Time 16.9 Seconds (9.0-12.0)
[2023-10-22] MEDS ORDERED: POTASSIUM CHLORIDE CRTAB 20 MEQ TABCR PO STA (08:20)
--- NOTE | 2023-10-22 08:24 | Hospitalist Progress Note ---
Date of Service October 22, 2023 Assessment & Plan (1) Severe sepsis: Plan: 83-year-old female with past med history significant for type 2 diabetes, diabetic polyneuropathy, obstructive sleep apnea noncompliant with CPAP on 2 L oxygen, paroxysmal SVT, nonsustained ventricular tachycardia, A-flutter, diastolic CHF, hypertension, nonrheumatic aortic valve stenosis, obesity, GERD, CKD stage III, osteoarthritis, history of breast cancer, history of chronic lym phedema, history of PE, presents with feeling cold and hot, cough and shortness of breath fatigue and weakness going on for last 4 days and found to have UTI and sepsis. Severe sepsis UTI Lactic acid is 4.2 ->2 Symptoms going on last 4 days Received IV Azactam in the ER IV fluid Blood pressure normal, no tachycardia WBC 11.4 Verified with pharmacy, patient tolerated Rocephin and cefepime in the past Started IV cefepime on admission, will continue repeat lactic acid 2 Closely monitor Blood cultx - pending Urine cultx - gram negative bacilli - E.coli Having cough and shortness of breath Respiratory bio fire negative Chest x-ray okay Possible bronchitis Empiric doxycycline History of obstructive sleep apnea Noncompliant with CPAP Uses 2 L oxygen History of chronic diastolic CHF Moderate aortic valve stenosis Holding Lasix received fluids on admission Monitor for volume overload Mild elevation troponin Mostly demand ischemia, secondary to sepsis History of pulmonary embolism On Coumadin INR 2 on admission, cont. to monitor History of a flutter Held metoprolol for sepsis initially, now resumed On Coumadin History of paroxysmal SVT Held metoprolol on admission - resume now Hypertension Holding metoprolol and lisinopril initially, resume metoprolol Close monitor History of diabetes Continue with Lantus 30 units twice daily and insulin sliding scale Glycemic pharmacy consult GERD On Protonix History of breast cancer S/p left mastectomy On anastrozole Follows with heme/onco History of bilateral lower extremity lymphedema DVT prophylaxis On Coumadin Disposition Telemetry floor Full code Admission and Anticipated Discharge Date Admission Date: October 20, 2023 Subjective Pt seen in follow up of sepsis, UTI Currently sitting up in chair in NAD, reports feeling much better No chest pain or shortness of breath. uses 2l of suppl. O2 all the time at baseline No abd. pain, n/v Review of Systems Review of Systems: All systems reviewed & are unremarkable except as noted in Subjective Physical Exam Physical Exam: General- obese elderly F in NAD Head- atraumatic Eyes- PERRL. ENT- oropharynx clear Neck- supple, no JVD. Lungs- clear to auscultation , no wheezing or crackles. Heart- regular rhythm; no murmur, no gallop. Abdomen- normal bowel sounds, soft, nontender, no distension. Extremities- b/l lower extremity lymphedema present. no erythema seen. Neuro- alert, oriented x 3; PERRL, no facial palsy; no dysarthria; obeys commands, answers questions appropriately, moves extremities Skin- warm & dry Results & Data Results & Data Vital Signs (Past 12 Hours) Vital Signs Temp Pulse Pulse Resp BP Pulse Ox O2 Del Method 10/22/23 07:28 68 10/22/23 07:07 36.8 C 62 20 124/51 L 97 Nasal Cannula 10/22/23 03:26 37.0 C 73 18 149/69 H 98 Nasal Cannula 10/21/23 23:43 36.6 C 77 18 147/63 H 99 Nasal Cannula 10/21/23 22:00 Nasal Cannula O2 Flow Rate 10/22/23 07:28 10/22/23 07:07 2 10/22/23 03:26 2 10/21/23 23:43 2 10/21/23 22:00 2 Laboratory Results 10/22/23 10/21/23 10/21/23 Range/Units 05:46 20:27 17:17 WBC 8.24 (4.8-10.8) K/ul RBC 3.56 L (4.20-5.40) M/uL Hgb 9.6 L (12.0-16.0) g/dl Hct 30.6 L (37.0-47.0) % MCV 86.0 (80.0-100.0) fL MCH 27.0 (25.0-34.0) pg MCHC 31.4 L (32.0-36.0) g/dL RDW Std Deviation 49.6 H (36.4-46.3) fL RDW Coeff of [place] 15.9 H (11.5-14.5) % Plt Count 227 (130-400) K/uL MPV 11.2 (9.4-12.4) fL PT 16.9 H (9.0-12.0) Seconds INR 1.6 H (0.9-1.1) Sodium 139 (136-145) mmol/L Potassium 3.5 (3.5-5.1) mmol/L Chloride 110 H (98-107) mmol/L Carbon Dioxide 23 (21-32) mmol/L Anion Gap 6 (3-11) BUN 11 (6-23) mg/dl Creatinine 0.97 (0.6-1.2) mg/dl Est Cr Clr Drug Dosing 58.3 ml/min Est GFR ( Amer) 63.5 ml/min Est GFR (Non-Af Amer) 54.8 ml/min BUN/Creatinine Ratio 11.3 (10-20) Glucose 129 H (70-99(Fasting)) mg/dl POC Glucose 144 H 138 H (70-99) mg/dl Estimat Average Glucose mg/dl Hemoglobin A1c (4.5-5.6) % Calcium 7.8 L (8.6-10.3) mg/dl Phosphorus 2.9 (2.5-4.9) mg/dl Magnesium 1.9 (1.7-2.4) mg/dl Troponin I High Sens (0-14) pg/ml 10/21/23 10/21/23 10/21/23 Range/Units 17:13 12:45 11:02 WBC (4.8-10.8) K/ul RBC (4.20-5.40) M/uL Hgb (12.0-16.0) g/dl Hct (37.0-47.0) % MCV (80.0-100.0) fL MCH (25.0-34.0) pg MCHC (32.0-36.0) g/dL RDW Std Deviation (36.4-46.3) fL RDW Coeff of [place] (11.5-14.5) % Plt Count (130-400) K/uL MPV (9.4-12.4) fL PT (9.0-12.0) Seconds INR (0.9-1.1) Sodium (136-145) mmol/L Potassium (3.5-5.1) mmol/L Chloride (98-107) mmol/L Carbon Dioxide (21-32) mmol/L Anion Gap (3-11) BUN (6-23) mg/dl Creatinine (0.6-1.2) mg/dl Est Cr Clr Drug Dosing ml/min Est GFR ( Amer) ml/min Est GFR (Non-Af Amer) ml/min BUN/Creatinine Ratio (10-20) Glucose (70-99(Fasting)) mg/dl POC Glucose 163 H (70-99) mg/dl Estimat Average Glucose mg/dl Hemoglobin A1c (4.5-5.6) % Calcium (8.6-10.3) mg/dl Phosphorus (2.5-4.9) mg/dl Magnesium (1.7-2.4) mg/dl Troponin I High Sens 28.2 H 32.6 H (0-14) pg/ml 10/21/23 10/21/23 Range/Units 09:39 05:39 WBC (4.8-10.8) K/ul RBC (4.20-5.40) M/uL Hgb (12.0-16.0) g/dl Hct (37.0-47.0) % MCV (80.0-100.0) fL MCH (25.0-34.0) pg MCHC (32.0-36.0) g/dL RDW Std Deviation (36.4-46.3) fL RDW Coeff of [place] (11.5-14.5) % Plt Count (130-400) K/uL MPV (9.4-12.4) fL PT (9.0-12.0) Seconds INR (0.9-1.1) Sodium (136-145) mmol/L Potassium (3.5-5.1) mmol/L Chloride (98-107) mmol/L Carbon Dioxide (21-32) mmol/L Anion Gap (3-11) BUN (6-23) mg/dl Creatinine (0.6-1.2) mg/dl Est Cr Clr Drug Dosing ml/min Est GFR ( Amer) ml/min Est GFR (Non-Af Amer) ml/min BUN/Creatinine Ratio (10-20) Glucose (70-99(Fasting)) mg/dl POC Glucose 158 H (70-99) mg/dl Estimat Average Glucose 163 mg/dl Hemoglobin A1c 7.3 H (4.5-5.6) % Calcium (8.6-10.3) mg/dl Phosphorus (2.5-4.9) mg/dl Magnesium (1.7-2.4) mg/dl Troponin I High Sens (0-14) pg/ml Medications Administered Current Inpatient Medications Acetaminophen (Acetaminophen 325 Mg Tab) 650 mg PO Q4H PRN PRN Reason: Pain or Fever Stop: 11/20/23 01:20 Anastrozole (Anastrozole 1 Mg Tab) 1 mg PO DAILY [facility] Stop: 11/20/23 08:59 Last Admin: 10/21/23 10:34 Dose: 1 mg Cyanocobalamin (Cyanocobalamin (B-12) 500 Mcg Tablet) 1,000 mcg PO DAILY [facility] Stop: 11/20/23 08:59 Last Admin: 10/21/23 10:35 Dose: 1,000 mcg Dextrose (Dextrose 50% 50 Ml Syringe) 25 - 50 ml IV UD PRN; Protocol PRN Reason: Hypoglycemia Protocol Stop: 11/20/23 01:20 Ferrous Sulfate (Ferrous Sulfate 325 Mg Tab) 325 mg PO DAILY [facility] Stop: 11/20/23 08:59 Last Admin: 10/21/23 10:35 Dose: 325 mg Glucagon (Glucagon For Inj 1 Mg Vial) 1 mg SQ UD PRN; Protocol PRN Reason: Hypoglycemia Protocol Stop: 11/20/23 01:20 Glucose (Glucose 10 Tab/Tube) 4 - 8 tab PO UD PRN; Protocol PRN Reason: Hypoglycemia Treatment Stop: 11/20/23 01:20 Glucose (Glucose 40% Gel 15 Gm Tube) 15 - 30 gm PO UD PRN; Protocol PRN Reason: Hypoglycemia Protocol Stop: 11/20/23 01:20 Doxycycline Hyclate 100 mg/ (Dextrose) 100 mls @ 50 mls/hr IV Q12H [facility] Stop: 10/28/23 01:20 Last Infusion: 10/22/23 03:45 Dose: Infused Cefepime HCl 2,000 mg/ Syringe 20 mls @ 5 mls/min IV Q12H [facility] Stop: 10/31/23 13:59 Last Admin: 10/22/23 01:46 Dose: 5 mls/min Insulin Aspart (Insulin Aspart Per Unit Charge) 0 units SC ACHS [facility] Stop: 11/20/23 02:59 Last Admin: 10/21/23 20:41 Dose: 1 units Insulin Glargine (Lantus Per Unit Charge) 30 units SQ BID [facility] Stop: 11/20/23 08:59 Last Admin: 10/21/23 20:41 Dose: 30 units Miscellaneous (Carbohydrates For Hypoglycemia ) 15 - 30 gm PO UD PRN PRN Reason: Hypoglycemia Protocol Stop: 11/20/23 01:20 Miscellaneous Information (Pharmacy Glycemic Mgmt Consult) 1 each N/A UD PRN PRN Reason: Consult Stop: 11/20/23 01:20 Nitroglycerin (Nitroglycerin Sl 0.4 Mg/Tab Tab) 0.4 mg SL Q5M PRN PRN Reason: Chest Pain Stop: 11/20/23 01:20 Pantoprazole Sodium (Pantoprazole 40 Mg Tab) 40 mg PO DAILY [facility] Stop: 11/20/23 08:59 Last Admin: 10/21/23 10:36 Dose: 40 mg Pregabalin (Pregabalin 150 Mg Cap) 150 mg PO BID [facility] Stop: 11/20/23 08:59 Last Admin: 10/21/23 20:40 Dose: 150 mg Tramadol HCl (Tramadol Hcl 50 Mg Tablet) 50 mg PO DAILY PRN PRN Reason: Pain Stop: 11/20/23 01:20 Vitamin D (Cholecalciferol 1,000 Units 25 Mcg Tab) 2,000 units PO Q2D@0900 [facility] Stop: 11/21/23 08:59 Warfarin Sodium (Warfarin Sod 5 Mg Tab) 5 mg PO SuTuWeThFrSa@1600 [facility] Stop: 11/20/23 15:59 Last Admin: 10/21/23 17:19 Dose: 5 mg Warfarin Sodium (Warfarin Sod 2.5 Mg Tab) 2.5 mg PO Mo@1600 [facility] Stop: 11/23/23 15:59
[2023-10-22] MEDS: ANASTROZOLE 1 MG TAB PO SCH (08:49)
[2023-10-22] MEDS: CYANOCOBALAMIN (B-12) 500 MCG TABLET PO SCH (08:49)
[2023-10-22] MEDS: PANTOprazole 40 MG TAB PO SCH (08:49)
[2023-10-22] MEDS: CHOLECALCIFEROL 1,000 UNITS 25 MCG TAB PO SCH (08:49)
[2023-10-22] MEDS: FERROUS SULFATE 325 MG TAB PO SCH (08:49)
[2023-10-22] MEDS: LANTUS PER UNIT CHARGE SQ SCH ×2 (08:50→21:14)
[2023-10-22] MEDS: INSULIN ASPART PER UNIT CHARGE SC SCH ×4 (08:50→21:10)
[2023-10-22] MEDS: PREGABALIN 150 MG CAP PO SCH ×2 (08:55→21:16)
[2023-10-22] MEDS ORDERED: DOCUSATE SODIUM 100 MG CAP PO ONE (14:42)
[2023-10-22] MEDS: WARFARIN SOD 5 MG TAB PO SCH (16:40)
[2023-10-22] MEDS: METOPROLOL TARTRATE 25 MG TAB PO SCH (21:16)
[2023-10-23] MEDS: CEFEPIME 2,000 MG in SYRINGE 0 ML IV SCH ×2 (01:30→14:16)
[2023-10-23] MEDS: DOXYCYCLINE HYCLATE 100 MG in DEXTROSE 5% MINI-B 100 ML IV SCH ×2 (01:30→14:16)
[2023-10-23 07:08] LABS: Hematocrit (blood only) 32.8 % (37.0-47.0); Hemoglobin 9.6 g/dl (12.0-16.0); Mean Corpuscular Hemoglobin 25.9 pg (25.0-34.0); Mean Corpuscular Hgb Conc 29.3 g/dL (32.0-36.0); Mean Corpuscular Volume 88.6 fL (80.0-100.0); Mean Platelet Volume 11.5 fL (9.4-12.4); Platelet Count 242 K/uL (130-400); RDW Coefficient of Variation 15.9 % (11.5-14.5); RDW Standard Deviation 50.8 fL (36.4-46.3); White Blood Count 9.59 K/ul (4.8-10.8)
[2023-10-23 07:40] LABS: Calcium 8.1 mg/dl (8.6-10.3); Creatinine Clr Calc Pharmacy 67.3 ml/min; Est GFR (African American) 75.5 ml/min; Est GFR (Non-African American) 65.2 ml/min; Phosphorus 2.4 mg/dl (2.5-4.9)
[2023-10-23 08:05] LABS: INR 1.5 (0.9-1.1); Prothrombin Time 16.5 Seconds (9.0-12.0)
[2023-10-23] MEDS: PANTOprazole 40 MG TAB PO SCH (09:00)
[2023-10-23] MEDS: METOPROLOL TARTRATE 25 MG TAB PO SCH ×2 (09:00→20:51)
[2023-10-23] MEDS: LANTUS PER UNIT CHARGE SQ SCH ×2 (09:01→20:48)
[2023-10-23] MEDS: INSULIN ASPART PER UNIT CHARGE SC SCH ×4 (09:01→20:40)
[2023-10-23] MEDS: ANASTROZOLE 1 MG TAB PO SCH (09:01)
[2023-10-23] MEDS: CYANOCOBALAMIN (B-12) 500 MCG TABLET PO SCH (09:01)
--- NOTE | 2023-10-23 09:03 | Hospitalist Progress Note ---
Date of Service October 23, 2023 Assessment & Plan (1) Severe sepsis: Plan: 83-year-old female with past med history significant for type 2 diabetes, diabetic polyneuropathy, obstructive sleep apnea noncompliant with CPAP on 2 L oxygen, paroxysmal SVT, nonsustained ventricular tachycardia, A-flutter, diastolic CHF, hypertension, nonrheumatic aortic valve stenosis, obesity, GERD, CKD stage III, osteoarthritis, history of breast cancer, history of chronic ly mphedema, history of PE, presents with feeling cold and hot, cough and shortness of breath fatigue and weakness going on for last 4 days and found to have UTI and sepsis. Severe sepsis UTI Lactic acid is 4.2 ->2 Symptoms going on last 4 days Received IV Azactam in the ER IV fluid Blood pressure normal, no tachycardia WBC 11.4 Verified with pharmacy, patient tolerated Rocephin and cefepime in the past Started IV cefepime on admission, will continue repeat lactic acid 2 Closely monitor Blood cultx - pending Urine cultx - gram negative bacilli - E.coli Having cough and shortness of breath Respiratory bio fire negative Chest x-ray okay Possible bronchitis Empiric doxycycline History of obstructive sleep apnea Noncompliant with CPAP Uses 2 L oxygen History of chronic diastolic CHF Moderate aortic valve stenosis Holding Lasix initially, resume tmrw AM received fluids on admission Monitor for volume overload Mild elevation troponin Mostly demand ischemia, secondary to sepsis History of pulmonary embolism On Coumadin INR 2 on admission, cont. to monitor History of a flutter Held metoprolol for sepsis initially, now resumed On Coumadin History of paroxysmal SVT Held metoprolol on admission - resumed Hypertension Holding metoprolol and lisinopril initially, resumed metoprolol, cont. to hold lisinopril for now Close monitor History of diabetes Continue with Lantus 30 units twice daily and insulin sliding scale Glycemic pharmacy consult GERD On Protonix History of breast cancer S/p left mastectomy On anastrozole Follows with heme/onco History of bilateral lower extremity lymphedema DVT prophylaxis On Coumadin Disposition Telemetry floor Full code Admission and Anticipated Discharge Date Admission Date: October 20, 2023 Subjective Pt seen in follow up of sepsis, UTI Currently sitting up in chair in NAD, reports feeling much better No chest pain or shortness of breath. uses 2l of suppl. O2 all the time at baseline No abd. pain, n/v will need PT/OT prior to DC Review of Systems Review of Systems: All systems reviewed & are unremarkable except as noted in Subjective Physical Exam Physical Exam: General- morbidly obese elderly F in NAD Head- atraumatic Eyes- PERRL. ENT- oropharynx clear Neck- supple, no JVD. Lungs- clear to auscultation , no wheezing or crackles. Heart- regular rhythm; no murmur, no gallop. Abdomen- normal bowel sounds, soft, nontender, no distension. Extremities- b/l lower extremity lymphedema present. moves extremities Neuro- alert, oriented x 3; PERRL, no facial palsy; no dysarthria; obeys commands, answers questions appropriately, moves extremities Skin- warm & dry Results & Data Results & Data Vital Signs (Past 12 Hours) Vital Signs Temp Pulse Pulse Resp BP Pulse Ox O2 Del Method 10/23/23 07:59 55 L 10/23/23 07:37 36.6 C 61 19 113/50 L 94 Nasal Cannula 10/23/23 03:39 36.6 C 69 19 119/54 L 98 Nasal Cannula 10/22/23 23:24 75 10/22/23 23:19 36.5 C 75 18 126/60 94 Nasal Cannula O2 Flow Rate 10/23/23 07:59 10/23/23 07:37 2 10/23/23 03:39 2 10/22/23 23:24 10/22/23 23:19 2 Laboratory Results 10/23/23 10/23/23 10/22/23 Range/Units 07:59 05:25 21:02 WBC 9.59 (4.8-10.8) K/ul RBC 3.70 L (4.20-5.40) M/uL Hgb 9.6 L (12.0-16.0) g/dl Hct 32.8 L (37.0-47.0) % MCV 88.6 (80.0-100.0) fL MCH 25.9 (25.0-34.0) pg MCHC 29.3 L (32.0-36.0) g/dL RDW Std Deviation 50.8 H (36.4-46.3) fL RDW Coeff of [place] 15.9 H (11.5-14.5) % Plt Count 242 (130-400) K/uL MPV 11.5 (9.4-12.4) fL PT 16.5 H (9.0-12.0) Seconds INR 1.5 H (0.9-1.1) Sodium 138 (136-145) mmol/L Potassium 4.0 (3.5-5.1) mmol/L Chloride 109 H (98-107) mmol/L Carbon Dioxide 25 (21-32) mmol/L Anion Gap 4 (3-11) BUN 16 (6-23) mg/dl Creatinine 0.84 (0.6-1.2) mg/dl Est Cr Clr Drug Dosing 67.3 ml/min Est GFR ( Amer) 75.5 ml/min Est GFR (Non-Af Amer) 65.2 ml/min BUN/Creatinine Ratio 19.0 (10-20) Glucose 134 H (70-99(Fasting)) mg/dl POC Glucose 120 H 128 H (70-99) mg/dl Calcium 8.1 L (8.6-10.3) mg/dl Phosphorus 2.4 L (2.5-4.9) mg/dl Magnesium 2.0 (1.7-2.4) mg/dl 10/22/23 10/22/23 Range/Units 16:44 11:58 WBC (4.8-10.8) K/ul RBC (4.20-5.40) M/uL Hgb (12.0-16.0) g/dl Hct (37.0-47.0) % MCV (80.0-100.0) fL MCH (25.0-34.0) pg MCHC (32.0-36.0) g/dL RDW Std Deviation (36.4-46.3) fL RDW Coeff of [place] (11.5-14.5) % Plt Count (130-400) K/uL MPV (9.4-12.4) fL PT (9.0-12.0) Seconds INR (0.9-1.1) Sodium (136-145) mmol/L Potassium (3.5-5.1) mmol/L Chloride (98-107) mmol/L Carbon Dioxide (21-32) mmol/L Anion Gap (3-11) BUN (6-23) mg/dl Creatinine (0.6-1.2) mg/dl Est Cr Clr Drug Dosing ml/min Est GFR ( Amer) ml/min Est GFR (Non-Af Amer) ml/min BUN/Creatinine Ratio (10-20) Glucose (70-99(Fasting)) mg/dl POC Glucose 136 H 142 H (70-99) mg/dl Calcium (8.6-10.3) mg/dl Phosphorus (2.5-4.9) mg/dl Magnesium (1.7-2.4) mg/dl Medications Administered Current Inpatient Medications Acetaminophen (Acetaminophen 325 Mg Tab) 650 mg PO Q4H PRN PRN Reason: Pain or Fever Stop: 11/20/23 01:20 Anastrozole (Anastrozole 1 Mg Tab) 1 mg PO DAILY [facility] Stop: 11/20/23 08:59 Last Admin: 10/22/23 08:49 Dose: 1 mg Cyanocobalamin (Cyanocobalamin (B-12) 500 Mcg Tablet) 1,000 mcg PO DAILY [facility] Stop: 11/20/23 08:59 Last Admin: 10/22/23 08:49 Dose: 1,000 mcg Dextrose (Dextrose 50% 50 Ml Syringe) 25 - 50 ml IV UD PRN; Protocol PRN Reason: Hypoglycemia Protocol Stop: 11/20/23 01:20 Docusate Sodium (Docusate Sodium 100 Mg Cap) 100 mg PO DAILY [facility] Stop: 11/22/23 08:59 Ferrous Sulfate (Ferrous Sulfate 325 Mg Tab) 325 mg PO DAILY [facility] Stop: 11/20/23 08:59 Last Admin: 10/22/23 08:49 Dose: 325 mg Glucagon (Glucagon For Inj 1 Mg Vial) 1 mg SQ UD PRN; Protocol PRN Reason: Hypoglycemia Protocol Stop: 11/20/23 01:20 Glucose (Glucose 10 Tab/Tube) 4 - 8 tab PO UD PRN; Protocol PRN Reason: Hypoglycemia Treatment Stop: 11/20/23 01:20 Glucose (Glucose 40% Gel 15 Gm Tube) 15 - 30 gm PO UD PRN; Protocol PRN Reason: Hypoglycemia Protocol Stop: 11/20/23 01:20 Doxycycline Hyclate 100 mg/ (Dextrose) 100 mls @ 50 mls/hr IV Q12H [facility] Stop: 10/28/23 01:20 Last Infusion: 10/23/23 03:30 Dose: Infused Cefepime HCl 2,000 mg/ Syringe 20 mls @ 5 mls/min IV Q12H [facility] Stop: 10/31/23 13:59 Last Admin: 10/23/23 01:30 Dose: 5 mls/min Insulin Aspart (Insulin Aspart Per Unit Charge) 0 units SC ACHS [facility] Stop: 11/20/23 02:59 Last Admin: 10/22/23 21:10 Dose: Not Given Insulin Glargine (Lantus Per Unit Charge) 30 units SQ BID [facility] Stop: 11/20/23 08:59 Last Admin: 10/22/23 21:14 Dose: 30 units Metoprolol Tartrate (Metoprolol Tartrate 25 Mg Tab) 25 mg PO AMHS [facility] Stop: 11/21/23 20:59 Last Admin: 10/22/23 21:16 Dose: 25 mg Miscellaneous (Carbohydrates For Hypoglycemia ) 15 - 30 gm PO UD PRN PRN Reason: Hypoglycemia Protocol Stop: 11/20/23 01:20 Miscellaneous Information (Pharmacy Glycemic Mgmt Consult) 1 each N/A UD PRN PRN Reason: Consult Stop: 11/20/23 01:20 Nitroglycerin (Nitroglycerin Sl 0.4 Mg/Tab Tab) 0.4 mg SL Q5M PRN PRN Reason: Chest Pain Stop: 11/20/23 01:20 Pantoprazole Sodium (Pantoprazole 40 Mg Tab) 40 mg PO DAILY [facility] Stop: 11/20/23 08:59 Last Admin: 10/22/23 08:49 Dose: 40 mg Pregabalin (Pregabalin 150 Mg Cap) 150 mg PO BID [facility] Stop: 11/20/23 08:59 Last Admin: 10/22/23 21:16 Dose: 150 mg Tramadol HCl (Tramadol Hcl 50 Mg Tablet) 50 mg PO DAILY PRN PRN Reason: Pain Stop: 11/20/23 01:20 Vitamin D (Cholecalciferol 1,000 Units 25 Mcg Tab) 2,000 units PO Q2D@0900 [facility] Stop: 11/21/23 08:59 Last Admin: 10/22/23 08:49 Dose: 2,000 units Warfarin Sodium (Warfarin Sod 5 Mg Tab) 5 mg PO SuTuWeThFrSa@1600 [facility] Stop: 11/20/23 15:59 Last Admin: 10/22/23 16:40 Dose: 5 mg Warfarin Sodium (Warfarin Sod 2.5 Mg Tab) 2.5 mg PO Mo@1600 [facility] Stop: 11/23/23 15:59
[2023-10-23] MEDS: DOCUSATE SODIUM 100 MG CAP PO SCH (09:11)
[2023-10-23] MEDS: PREGABALIN 150 MG CAP PO SCH ×2 (09:11→20:51)
[2023-10-23] MEDS: FERROUS SULFATE 325 MG TAB PO SCH (09:41)
[2023-10-23] MEDS: WARFARIN SOD 5 MG TAB PO SCH (17:19)
[2023-10-24] MEDS: CEFEPIME 2,000 MG in SYRINGE 0 ML IV SCH ×2 (03:29→13:26)
[2023-10-24] MEDS: DOXYCYCLINE HYCLATE 100 MG in DEXTROSE 5% MINI-B 100 ML IV SCH ×2 (03:30→13:04)
[2023-10-24 06:03] LABS: Hematocrit (blood only) 30.7 % (37.0-47.0); Hemoglobin 9.5 g/dl (12.0-16.0); Mean Corpuscular Hemoglobin 26.6 pg (25.0-34.0); Mean Corpuscular Hgb Conc 30.9 g/dL (32.0-36.0); Mean Platelet Volume 11.5 fL (9.4-12.4); Platelet Count 237 K/uL (130-400); Red Blood Count 3.57 M/uL (4.20-5.40); White Blood Count 9.17 K/ul (4.8-10.8)
[2023-10-24 06:11] LABS: BUN Creatinine Ratio 19.5 (10-20); Calcium 8.2 mg/dl (8.6-10.3); Creatinine Clr Calc Pharmacy 73.5 ml/min; Est GFR (African American) 83.9 ml/min; Est GFR (Non-African American) 72.4 ml/min; Magnesium 2.1 mg/dl (1.7-2.4); Phosphorus 2.8 mg/dl (2.5-4.9); Potassium 4.1 mmol/L (3.5-5.1)
[2023-10-24 06:26] LABS: INR 1.6 (0.9-1.1); Prothrombin Time 17.5 Seconds (9.0-12.0)
[2023-10-24] MEDS: METOPROLOL TARTRATE 25 MG TAB PO SCH ×2 (08:53→21:29)
[2023-10-24] MEDS: ANASTROZOLE 1 MG TAB PO SCH (08:53)
[2023-10-24] MEDS: CHOLECALCIFEROL 1,000 UNITS 25 MCG TAB PO SCH (08:54)
[2023-10-24] MEDS: CYANOCOBALAMIN (B-12) 500 MCG TABLET PO SCH (08:54)
[2023-10-24] MEDS: PANTOprazole 40 MG TAB PO SCH (08:55)
[2023-10-24] MEDS: FUROSEMIDE 40 MG TAB PO SCH ×2 (09:00→17:47)
[2023-10-24] MEDS: LANTUS PER UNIT CHARGE SQ SCH ×2 (09:01→21:29)
[2023-10-24] MEDS: INSULIN ASPART PER UNIT CHARGE SC SCH ×4 (09:01→21:25)
[2023-10-24] MEDS: DOCUSATE SODIUM 100 MG CAP PO SCH (09:02)
[2023-10-24] MEDS: PREGABALIN 150 MG CAP PO SCH ×2 (09:05→21:29)
[2023-10-24] MEDS: FERROUS SULFATE 325 MG TAB PO SCH (13:04)
--- NOTE | 2023-10-24 14:00 | Pharmacy Report ---
Pharmacy Glycemic Short Note 2 - Date of Service October 24, 2023 - Glycemic Short BSG Results (Last 24 hours): 10/23/23 10/23/23 10/24/23 16:42 20:26 05:32 Glucose 114 H POC Glucose 105 H 121 H 10/24/23 10/24/23 07:58 11:56 Glucose POC Glucose 119 H 121 H OUTPATIENT ANTIDIABETIC REGIMEN: * Lantus 36 units SQ QAM, 42 units SQ QPM * Metformin 1 gm PO BID * HbA1c = 7.3% ASSESSMENT: 10/24: * Gloria received 87 units of insulin yesterday (60 were basal) * Fasting BSG within goal range, continue current basal regimen * She continues to receive cefepime and doxycycline IV * BSGs within goal range but on the lower end, will loosen carbohydrate ratio slightly 10/21: * 83 y/o F admitted for severe Sepsis and UTI. Patient has history of Type 2 diabetes managed on basal insulin and oral Metformin at home. * Per initial orders from hospitalist, Lantus 30 units SQ BID started this AM. This is around 20% reduced from home dosing, therefore will continue with this for now and re-assess tomorrow. * Novolog started this AM based on stress of 2. PLAN FOR INPATIENT GLYCEMIC CONTROL: * Hold outpatient oral diabetes medications * Basal insulin * Lantus 30 units SQ BID * Bolus insulin * NovoLog per scale ACHS or Q6hrs while NPO * Goal Range: Low 110 mg/dL - High 140 mg/dL * Correction Factor: 20 mg/dL/unit * Nutritional / Prandial insulin per carb ratio of 1 unit per 7 grams CHO consumed
[2023-10-24] MEDS ORDERED: WARFARIN SOD 2.5 MG TAB PO SCH (16:00)
--- NOTE | 2023-10-24 16:54 | Hospitalist Progress Note ---
Date of Service October 24, 2023 Assessment & Plan (1) Severe sepsis: Plan: 83-year-old female with past med history significant for type 2 diabetes, diabetic polyneuropathy, obstructive sleep apnea noncompliant with CPAP on 2 L oxygen, paroxysmal SVT, nonsustained ventricular tachycardia, A-flutter, diastolic CHF, hypertension, nonrheumatic aortic valve stenosis, obesity, GERD, CKD stage III, osteoarthritis, history of breast cancer, history of chronic ly mphedema, history of PE, presents with feeling cold and hot, cough and shortness of breath fatigue and weakness going on for last 4 days and found to have UTI and sepsis. Severe sepsis UTI Lactic acid is 4.2 ->2 Received IV Azactam in the ER Received IV fluid Blood pressure normal, no tachycardia WBC wnl Verified with pharmacy, patient tolerated Rocephin and cefepime in the past Started IV cefepime on admission, will continue repeat lactic acid 2 Blood cultx - no growth Urine cultx - gram negative bacilli - E.coli Will transition to Cefdinir t Having cough and shortness of breath Respiratory bio fire negative Chest x-ray okay Possible bronchitis Currently on empiric doxycycline, will not continue it on discharge History of obstructive sleep apnea Noncompliant with CPAP Uses 2 L oxygen stable History of chronic diastolic CHF Moderate aortic valve stenosis Holding Lasix initially, resume tmrw AM received fluids on admission Monitor for volume overload Mild elevation troponin Mostly demand ischemia, secondary to sepsis History of pulmonary embolism On Coumadin INR 1.6 today History of a flutter History of paroxysmal SVT Continue metoprolol and Coumadin Hypertension Continue metoprolol Lisinopril on hold, if BP starts to elevate, please resume metformin History of diabetes Continue with Lantus 30 units twice daily and insulin sliding scale Glycemic pharmacy consult GERD On Protonix History of breast cancer S/p left mastectomy On anastrozole Follows with heme/onco History of bilateral lower extremity lymphedema DVT prophylaxis On Coumadin Disposition Will discharge once stable Full code Admission and Anticipated Discharge Date Admission Date: October 20, 2023 Subjective Pt was seen and examined for follow up Sitting in chair with no acute distress Pt said that she feels alot better Denies any chest pain, palpitation, dizziness Review of Systems Review of Systems: All systems reviewed & are unremarkable except as noted in Subjective Physical Exam Physical Exam: General- No acute distress Head- atraumatic Eyes- PERRL, EOMI, ENT- oropharynx clear Neck- supple, no JVD Lungs- No wheezing Heart- regular rhythm; no murmur Abdomen- normal bowel sounds, soft, nontender Extremities- no calf tenderness, lymphedema present in b/l LE Neuro- alert, oriented x 3; PERRL, EOMI; no facial palsy; no dysarthria Skin- warm & dry Results & Data Results & Data Vital Signs (Past 12 Hours) Vital Signs Temp Pulse Pulse Resp BP Pulse Ox O2 Del Method 10/24/23 16:23 36.9 C 67 18 108/73 97 Nasal Cannula 10/24/23 15:41 76 10/24/23 12:16 36.9 C 58 L 18 151/62 H 95 Room Air 10/24/23 07:43 36.6 C 72 18 152/71 H 98 Nasal Cannula 10/24/23 07:22 60 O2 Flow Rate 10/24/23 16:23 2 10/24/23 15:41 10/24/23 12:16 10/24/23 07:43 2 10/24/23 07:22
[2023-10-24] MEDS ORDERED: CAPSAICIN CR 0.075% 60 GM TUBE EXT PRN (21:40)
[2023-10-25] MEDS: CEFEPIME 2,000 MG in SYRINGE 0 ML IV SCH ×2 (03:06→13:14)
[2023-10-25] MEDS: DOXYCYCLINE HYCLATE 100 MG in DEXTROSE 5% MINI-B 100 ML IV SCH ×2 (03:07→13:15)
[2023-10-25 08:34] LABS: INR 1.5 (0.9-1.1); Prothrombin Time 16.1 Seconds (9.0-12.0)
[2023-10-25] MEDS: LANTUS PER UNIT CHARGE SQ SCH ×2 (09:44→21:24)
[2023-10-25] MEDS: INSULIN ASPART PER UNIT CHARGE SC SCH ×4 (09:44→21:24)
[2023-10-25] MEDS: PREGABALIN 150 MG CAP PO SCH ×2 (09:45→21:24)
[2023-10-25] MEDS: METOPROLOL TARTRATE 25 MG TAB PO SCH ×2 (09:45→21:24)
[2023-10-25] MEDS: PANTOprazole 40 MG TAB PO SCH (09:46)
[2023-10-25] MEDS: FERROUS SULFATE 325 MG TAB PO SCH (09:46)
[2023-10-25] MEDS: ANASTROZOLE 1 MG TAB PO SCH (09:47)
[2023-10-25] MEDS: FUROSEMIDE 40 MG TAB PO SCH ×2 (09:47→18:02)
[2023-10-25] MEDS: DOCUSATE SODIUM 100 MG CAP PO SCH (09:47)
[2023-10-25] MEDS: CYANOCOBALAMIN (B-12) 500 MCG TABLET PO SCH (09:47)
--- NOTE | 2023-10-25 16:00 | Hospitalist Progress Note ---
Date of Service October 25, 2023 Assessment & Plan (1) Severe sepsis: Plan: 83-year-old female with past med history significant for type 2 diabetes, diabetic polyneuropathy, obstructive sleep apnea noncompliant with CPAP on 2 L oxygen, paroxysmal SVT, nonsustained ventricular tachycardia, A-flutter, diastolic CHF, hypertension, nonrheumatic aortic valve stenosis, obesity, GERD, CKD stage III, osteoarthritis, history of breast cancer, history of chronic ly mphedema, history of PE, presents with feeling cold and hot, cough and shortness of breath fatigue and weakness going on for last 4 days and found to have UTI and sepsis. Severe sepsis UTI Lactic acid is 4.2 ->2 Received IV Azactam in the ER Received IV fluid Blood pressure normal, no tachycardia WBC wnl Verified with pharmacy, patient tolerated Rocephin and cefepime in the past Started IV cefepime on admission, will continue repeat lactic acid 2 Blood cultx - no growth Urine cultx - gram negative bacilli - E.coli Will transition to Cefdinir today, if tolerates will complete total course of 10 days abx Having cough and shortness of breath Respiratory bio fire negative Chest x-ray okay Possible bronchitis Currently on empiric doxycycline, will not continue it on discharge ( day#5 ) History of obstructive sleep apnea Noncompliant with CPAP Continue home 2 L oxygen on discharge stable History of chronic diastolic CHF Moderate aortic valve stenosis Holding Lasix initially, resume tmrw AM received fluids on admission Monitor for volume overload Mild elevation troponin Mostly demand ischemia, secondary to sepsis History of pulmonary embolism On Coumadin INR 1.6 today History of a flutter History of paroxysmal SVT Continue metoprolol and Coumadin Hypertension Continue metoprolol Lisinopril on hold, if BP starts to elevate, please resume metformin History of diabetes Continue with Lantus 30 units twice daily and insulin sliding scale Will resume metformin on discharge Phramacy on board for Glycemic management GERD On Protonix History of breast cancer S/p left mastectomy On anastrozole Follows with heme/onco History of bilateral lower extremity lymphedema DVT prophylaxis On Coumadin Disposition Plan to discharge home tomorrow Full code Admission and Anticipated Discharge Date Admission Date: October 20, 2023 Subjective Pt was seen and examined for follow up Sitting in chair with no acute distress Pt said that she continues to get better She is looking to discharge home tomorrow Denies any chest pain, palpitation, dizziness Review of Systems Review of Systems: All systems reviewed & are unremarkable except as noted in Subjective Physical Exam Physical Exam: General- No acute distress Head- atraumatic Eyes- PERRL, EOMI, ENT- oropharynx clear Neck- supple, no JVD Lungs- No wheezing Heart- regular rhythm; no murmur Abdomen- normal bowel sounds, soft, nontender Extremities- no calf tenderness, lymphedema present in b/l LE Neuro- alert, oriented x 3; PERRL, EOMI; no facial palsy; no dysarthria Skin- warm & dry Results & Data Results & Data Vital Signs (Past 12 Hours) Vital Signs Temp Pulse Pulse Resp BP Pulse Ox O2 Del Method 10/25/23 15:34 66 10/25/23 11:39 36.7 C 56 L 16 131/60 98 Nasal Cannula 10/25/23 07:39 36.5 C 53 L 20 132/71 95 Nasal Cannula 10/25/23 07:15 56 L O2 Flow Rate 10/25/23 15:34 10/25/23 11:39 2 10/25/23 07:39 2 10/25/23 07:15
[2023-10-25] MEDS: WARFARIN SOD 5 MG TAB PO SCH (17:59)
[2023-10-25] MEDS: CEFDINIR 300 MG CAP PO SCH (21:30)
[2023-10-26] MEDS: DOXYCYCLINE HYCLATE 100 MG in DEXTROSE 5% MINI-B 100 ML IV SCH ×2 (02:57→15:36)
[2023-10-26 06:20] LABS: Hematocrit (blood only) 34.6 % (37.0-47.0); Hemoglobin 10.5 g/dl (12.0-16.0); Mean Corpuscular Hemoglobin 26.4 pg (25.0-34.0); Mean Corpuscular Hgb Conc 30.3 g/dL (32.0-36.0); Mean Corpuscular Volume 86.9 fL (80.0-100.0); Mean Platelet Volume 11.2 fL (9.4-12.4); Platelet Count 262 K/uL (130-400); RDW Coefficient of Variation 16.1 % (11.5-14.5); Red Blood Count 3.98 M/uL (4.20-5.40); White Blood Count 9.12 K/ul (4.8-10.8)
[2023-10-26 06:38] LABS: BUN Creatinine Ratio 24.1 (10-20); Calcium 8.3 mg/dl (8.6-10.3); Creatinine Clr Calc Pharmacy 69.5 ml/min; Est GFR (African American) 81.4 ml/min; Est GFR (Non-African American) 70.2 ml/min; Potassium 3.6 mmol/L (3.5-5.1)
[2023-10-26 06:51] LABS: INR 1.4 (0.9-1.1); Prothrombin Time 15.5 Seconds (9.0-12.0)
[2023-10-26] MEDS: FERROUS SULFATE 325 MG TAB PO SCH (08:47)
[2023-10-26] MEDS: METOPROLOL TARTRATE 25 MG TAB PO SCH (08:47)
[2023-10-26] MEDS: CHOLECALCIFEROL 1,000 UNITS 25 MCG TAB PO SCH (08:47)
[2023-10-26] MEDS: FUROSEMIDE 40 MG TAB PO SCH ×2 (08:47→17:35)
[2023-10-26] MEDS: CYANOCOBALAMIN (B-12) 500 MCG TABLET PO SCH (08:47)
[2023-10-26] MEDS: CEFDINIR 300 MG CAP PO SCH (08:47)
[2023-10-26] MEDS: PANTOprazole 40 MG TAB PO SCH (08:47)
[2023-10-26] MEDS: ANASTROZOLE 1 MG TAB PO SCH (08:47)
[2023-10-26] MEDS: DOCUSATE SODIUM 100 MG CAP PO SCH (08:48)
[2023-10-26] MEDS: INSULIN ASPART PER UNIT CHARGE SC SCH ×3 (08:53→17:38)
[2023-10-26] MEDS: LANTUS PER UNIT CHARGE SQ SCH (08:54)
[2023-10-26] MEDS: PREGABALIN 150 MG CAP PO SCH (08:54)
[2023-10-26] MEDS ORDERED: ENOXAPARIN 1 MG/KG SC SCH (09:30)
[2023-10-26] MEDS ORDERED: ENOXAPARIN INJ 120 MG/0.8 ML SYR SQ SCH (10:00)
--- NOTE | 2023-10-26 15:35 | Discharge Summary ---
Discharge Summary Date of Service October 26, 2023 Notes For Next Care Provider Please ensure close follow up with the coumadin clinic Medication Changes From Visit Cefdinir 300mg BID x 4 days Lovenox bridge 120mg BID until INR therapeutic Admission HPI Per Admitting Provider 83-year-old female with past med history significant for type 2 diabetes, diabetic polyneuropathy, obstructive sleep apnea noncompliant with CPAP on 2 L oxygen, paroxysmal SVT, nonsustained ventricular tachycardia, A-flutter, diastolic CHF, hypertension, nonrheumatic aortic valve stenosis, obesity, GERD, CKD stage III, osteoarthritis, history of breast cancer, history of chronic lymphedema, history of PE, presents with feeling cold and hot, cough and shortness of breath, fatigue and weakness going on for last 4 days and found to UTI and sepsis. Patient was in the ER couple of days ago with feeling chills and cold and not feeling well and workup was unremarkable and sent home. Again comes today because of progressive worsening of symptoms with fatigue and not able to ambulate. Did not notice any fevers. But feet felt hot and cold and chills. Denies any burning micturition. Stools are always black. Also having several episodes of diarrhea. Coughing up mucus. Denies any headache or body ache. Has some runny nose. Also having shortness of breath. Denies any chest pain. No abdominal pain. She has chronic lymphedema of lower extremities and she did not use her lymphedema machine for the last 2 days and thinks her swelling is little worse. Currently hemodynamically stable. She received dose of Ativan for anxiety in the ER. Past med history. As mentioned above Past surgical history. Left breast biopsy. ERCP. Laparoscopic hysterectomy. Laparoscopic cholecystectomy. Left simple mastectomy. Low back surgery. Bilateral arthroscopic surgeries on knees. Tonsillectomy. Repair of right shoulder ruptured rotator cuff. [place] lymph node biopsy on left side. Social history. . No smoking. No alcohol. No drug use. Family history. Father had diabetes. Maternal grandfather had diabetes. Admission Exam Per Admitting Provider General- Not t in acute distress Head- atraumatic Eyes- PERRL. ENT- oropharynx clear Neck- supple, no JVD. Lungs- clear to auscultation , no wheezing or crackles. Heart- regular rhythm; no murmur, no gallop. Abdomen- normal bowel sounds, soft, nontender, no distension. Extremities- b/l lower extremity lymphedema present. no erythema seen. Neuro- alert, oriented x 3; PERRL, no facial palsy; no dysarthria; obeys commands Skin- warm & dry Principal Dx & Hospital Course #1 = Principal Diagnosis (1) Severe sepsis: (2) Acute UTI: (3) Weakness: (4) SOB (shortness of breath): (5) LUZ MARIA (obstructive sleep apnea): (6) Moderate aortic stenosis: (7) HTN (hypertension): (8) Lymphedema, not elsewhere classified: (9) History of pulmonary embolism: (10) DM type 2 (diabetes mellitus, type 2): Plan 83-year-old female with past med history significant for type 2 diabetes, diabetic polyneuropathy, obstructive sleep apnea noncompliant with CPAP on 2 L oxygen, paroxysmal SVT, nonsustained ventricular tachycardia, A-flutter, diastolic CHF, hypertension, nonrheumatic aortic valve stenosis, obesity, GERD, CKD stage III, osteoarthritis, history of breast cancer, history of chronic lymphedema, history of PE admitted with sepsis in the setting of a complicated UTI. Severe sepsis UTI Presented with fevers/chills, cough, shortness of breath, fatigue and weakness x 4 days Lactic acid of 4.2 ->2 Received IV Azactam in the ER Received IV fluids Blood pressure normal, no tachycardia WBC wnl Verified with pharmacy, patient tolerated Rocephin and cefepime in the past Started IV cefepime on admission, continued Blood cultures with no growth Urine culture grew gram negative bacilli - E.coli -transitioned from rocephin to po cefdinir, discharged with 4 days of medic ation to complete the course Bronchitis Had cough and shortness of breath Respiratory bio fire negative Chest x-ray with no acute findings Possible bronchitis treated with empiric doxycycline,not continued on discharge. History of obstructive sleep apnea Noncompliant with CPAP Continue home 2 L oxygen on discharge stable History of chronic diastolic CHF Moderate aortic valve stenosis Holding Lasix initially, resumed on discharge Monitor for volume overload Mild elevation troponin hs-trop elevation, peaked ~38 EKG sinus with RBBB Mostly demand ischemia secondary to sepsis Doubt ACS History of pulmonary embolism On Coumadin INR 2.0 on admission, was 1.4 on discharge Discharged with Lovenox 120mg BID SQ bridge Close followup with coumadin clinic History of a flutter History of paroxysmal SVT Continue metoprolol and Coumadin/Lovenox bridge Close followup with coumadin clinic Hypertension Continue metoprolol Lisinopril resumed on discharge History of diabetes Hemoglobin a1c of 7.3 on 10/21 Lantus 30 units twice daily and insulin sliding scale while hospitalized Resume metformin/home meds on discharge GERD On Protonix, continue History of breast cancer S/p left mastectomy On anastrozole Follows with heme/onc History of bilateral lower extremity lymphedema Holding Lasix initially, resumed on discharge Monitor for volume overload Discharge Exam General: Alert, oriented. No acute distress Skin: No noted rashes or bruises Psych: Appropriate mood and affect Neuro: difficulty with movements in the chair HEENT: NC/AT CV: RRR Resp: no increased effort of breathing, breath sounds clear Abdomen: Soft, nontender, nondistended. Extremities: ++++ edema in lower extremities bilaterally. Updated Medication List Medication Instructions Recorded Confirmed Type anastrozole 1 mg tablet 1 mg PO DAILY 10/20/23 10/28/23 History cholecalciferol (vitamin D3) 50 50 mcg PO Q OTHER DAY 10/20/23 10/28/23 History mcg (2,000 unit) capsule (Vitamin D3) cyanocobalamin (vitamin B-12) 1,000 mcg PO DAILY 10/20/23 10/28/23 History 1,000 mcg tablet (Vitamin B-12) diclofenac sodium 1 % topical gel 4 g topical QID PRN Pain 10/20/23 10/28/23 History ferrous sulfate 325 mg (65 mg 325 mg PO DAILY 10/20/23 10/28/23 History iron) tablet furosemide 40 mg tablet 40 mg PO AMHS 10/20/23 10/28/23 History insulin glargine 100 unit/mL See Rx Instructions .Route .COMPLEX 10/20/23 10/28/23 History subcutaneous solution (Lantus U-100 Insulin) lisinopril 10 mg tablet 10 mg PO DAILY 10/20/23 10/28/23 History metformin 1,000 mg tablet 1,000 mg PO BID 10/20/23 10/28/23 History metoprolol tartrate 25 mg tablet 25 mg PO AMHS 10/20/23 10/28/23 History pantoprazole 40 mg tablet,delayed 40 mg PO DAILYBB 10/20/23 10/28/23 History release pregabalin 150 mg capsule 150 mg PO BID 10/20/23 10/28/23 History tramadol 50 mg tablet 50 mg PO DAILY PRN Pain 10/20/23 10/28/23 History warfarin 5 mg tablet (Jantoven) 2.5 - 5 mg PO DIRECTED 10/20/23 10/28/23 History cefdinir 300 mg capsule 300 mg PO BID #8 caps 10/26/23 10/28/23 Rx enoxaparin 120 mg/0.8 mL 120 mg (0.8 mL) subcut Q12H #8 mL 10/26/23 10/28/23 Rx subcutaneous syringe (Lovenox) Hospital Stay Data Consultations 10/20/23 22:21 ED Decision to Admit Stat Diagnostic Imagining Performed Chest X-Ray 10/20/23 20:04 SINGLE VIEW CHEST CLINICAL HISTORY: Dyspnea FINDINGS: An AP, portable, upright chest radiograph is compared to study dated 12/28/2022. The examination is degraded by portable technique and patient rotation. The heart is enlarged noting atherosclerotic calcification of the thoracic aorta. The pulmonary vasculature is noncongested. Chronic interstitial thickening is similar to previous. There is mild bibasilar scarring/atelectasis. The lungs and pleural spaces are otherwise clear. No pneumothorax is seen. The skeletal structures are osteopenic. The bony thorax is grossly intact. IMPRESSION: Cardiomegaly with no active disease in the chest. ACT 112: Negative or not required by law. Electronically signed by: Martinez Cuadra M.D. 10/20/2023 9:55 PM Discharge Instructions Given to Patient (Per Discharging Provider) Ms. Felix, You were admitted with a severe infection. We treated you with antibiotics and are discharging you home. Please take the oral antibiotics for 4 more days. We are also discharging you home with Lovenox shots to take until your INR is back up between 2 and 3. Please continue to take your warfarin with this. Please also keep follow up with your primary care provider and coumadin clinic after discharge. It was a pleasure taking care of you while you were here! Total Time Total Time Spent Total Time Spent (In Minutes): > 30 minutes
[2023-10-26] MEDS: WARFARIN SOD 5 MG TAB PO SCH (15:37)
== END 2023-10-26 20:24 | disposition home or self-care (01) | DRG 872 ==
LOC: ED 19:53 → EDINP 22:59 → SUATTDRO 22:59 → 4W 10-21 21:14
DX: Z85.3 Personal history of malignant neoplasm of breast; E66.9 Obesity, unspecified; J40 Bronchitis, not specified as acute or chronic; Z79.4 Long term (current) use of insulin; Z68.41 Body mass index [BMI] 40.0-44.9, adult; I50.32 Chronic diastolic (congestive) heart failure; N18.30 Chronic kidney disease, stage 3 unspecified; A41.51 Sepsis due to Escherichia coli [E. coli]; I89.0 Lymphedema, not elsewhere classified; I24.89 Other forms of acute ischemic heart disease; G47.33 Obstructive sleep apnea (adult) (pediatric); Z88.0 Allergy status to penicillin; E11.22 Type 2 diabetes mellitus with diabetic chronic kidney disease; E11.42 Type 2 diabetes mellitus with diabetic polyneuropathy; Z79.84 Long term (current) use of oral hypoglycemic drugs; I35.0 Nonrheumatic aortic (valve) stenosis; R65.20 Severe sepsis without septic shock; Z86.711 Personal history of pulmonary embolism; I13.0 Hypertensive heart and chronic kidney disease with heart failure and stage 1 through stage 4 chronic kidney disease, or unspecified chronic kidney disease; K21.9 Gastro-esophageal reflux disease without esophagitis; Z99.81 Dependence on supplemental oxygen; I48.92 Unspecified atrial flutter; Z79.01 Long term (current) use of 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; N39.0 Urinary tract infection, site not specified

== ENCOUNTER 2023-10-28 13:05 | Observation (INO) ==
[2023-10-28 14:01] LABS: Basophils # (auto) 0.07 K/uL (0.00-0.20); Basophils % (auto) 0.7 %; Eosinophils # (auto) 0.17 K/uL (0.00-0.50); Eosinophils % (auto) 1.7 %; Hematocrit (blood only) 36.1 % (37.0-47.0); Hemoglobin 11.3 g/dl (12.0-16.0); Immature Granulocytes # (auto) 0.31 K/uL (0.01-0.20); Immature Granulocytes % (auto) 3.2 %; Lymphocytes # (auto) 1.85 K/uL (1.20-3.40); Mean Corpuscular Hemoglobin 26.7 pg (25.0-34.0); Mean Corpuscular Hgb Conc 31.3 g/dL (32.0-36.0); Mean Corpuscular Volume 85.1 fL (80.0-100.0); Mean Platelet Volume 11.7 fL (9.4-12.4); Monocytes # (auto) 0.83 K/uL (0.11-0.59); Monocytes % (auto) 8.5 %; Neutrophils # (auto) 6.51 K/uL (1.40-6.50); Neutrophils % (auto) 66.9 %; Platelet Count 317 K/uL (130-400); RDW Coefficient of Variation 16.1 % (11.5-14.5); RDW Standard Deviation 49.1 fL (36.4-46.3); Red Blood Count 4.24 M/uL (4.20-5.40); White Blood Count 9.74 K/ul (4.8-10.8)
[2023-10-28 14:17] LABS: Alanine Aminotransferase 12 U/L (7-52); Albumin Globulin Ratio 1.1 (0.9-2); Albumin Level 3.8 gm/dl (3.4-5.0); Alkaline Phosphatase 44 U/L (34-104); Anion Gap 12 (3-11); Aspartate Aminotransferase 23 U/L (13-39); BUN Creatinine Ratio 21.2 (10-20); Bilirubin,Total 0.4 mg/dl (0.2-1.0); Blood Urea Nitrogen 18 mg/dl (6-23); Calcium 8.9 mg/dl (8.6-10.3); Carbon Dioxide 24 mmol/L (21-32); Chloride 101 mmol/L (98-107); Est GFR (African American) 74.5 ml/min; Est GFR (Non-African American) 64.3 ml/min; Globulin 3.4 gm/dl (2.5-4.0); Glucose 175 mg/dl (70-99(Fasting)); Potassium 3.4 mmol/L (3.5-5.1); Sodium 137 mmol/L (136-145); Total Protein 7.2 gm/dl (6.0-8.3)
[2023-10-28] MEDS ORDERED: SODIUM CHLORIDE 0.9% 500 ML IV ONE (14:31)
[2023-10-28 14:52] LABS: Magnesium 1.6 mg/dl (1.7-2.4)
--- NOTE | 2023-10-28 14:53 | Emergency Department Note ---
Impression & Plan Weakness, Ambulatory dysfunction, Recent urinary tract infection, History of sepsis, Hypomagnesemia, Hypokalemia ED Provider Note NAME: ANABELLA STOREY AGE: 83 SEX: F : 1940 ARRIVES VIA: Ambulance INFORMANT: [Patient][] ED PROVIDER(S): [Martinez Robles MD] CHIEF COMPLAINT: Illness HISTORY OF PRESENT ILLNESS: The patient is an 83-year-old female presents to the ER with diffuse weakness and the inability to function at her home. The patient was discharged from our hospital 2 days ago after being in for urinary sepsis. The patient was told she would benefit from rehab but refused. The patient states that now that she is out of the hospital, she is too weak to navigate her home or stairs in her home. She does believe she needs rehab. She went to her family doctor's office today and was then sent to our ER as they could not facilitate rehab from the office. The patient has not had chest pain or shortness of breath. No headache. No abdominal pain. No urinary symptoms. She has not had fever. The patient describes diffuse weakness, the weakness is not one-sided. The patient does admit that she missed a day or so of antibiotics, she had been prescribed cefdinir upon discharge but just recently filled the prescription. PMHx/PSHx/Social Hx: See Below PHYSICAL EXAM: GENERAL: Patient is in no acute distress. HEENT: No acute trauma, normocephalic atraumatic, mucous membranes moist, no nasal congestion. NECK: No stridor, no adenopathy, no meningismus, trachea is midline. LUNGS: Clear to auscultation bilaterally, no wheeze, no rhonchi, breath sounds equal. HEART: 2/6 systolic murmur heard best at the right sternal border. Regular rate and rhythm. ABDOMEN: Soft, nontender, no peritonitis. EXTREMITIES: No cyanosis, full range of motion of all the joints without pain or difficulty. Moderate to significant bilateral pedal edema. NEUROLOGIC: Oriented x 3, no acute motor or sensory deficits, no focal weakness. No speech slur. Awake alert. SKIN: No jaundice, no diaphoresis. DIFFERENTIAL DIAGNOSIS: Debilitation, anemia, electrolyte imbalance, dehydration, persistent UTI, NE, among others. EMERGENCY DEPARTMENT PROCEDURES: MEDICAL DECISION MAKING: There is no leukocytosis. A mild anemia was seen. There was a normal platelet count. INR is elevated at 1.6, consistent with her Coumadin use. She is below the therapeutic window though. There was a slightly low potassium at 3.4. No renal failure. Magnesium is low at 1.6. No concerning liver enzyme elevation. ECG showed a sinus bradycardia, no obvious ischemia. Cardiac enzyme testing x 1 was not consistent with acute cardiac injury. Urinalysis appears to show some contamination versus recurrent infection. COVID, influenza and RSV test were negative. Chest x-ray does not show pneumonia or CHF. Abdominal and pelvis CT does not show any evidence for urinary obstruction or acute surgical pathology. On exam, there were no focal motor deficits. The patient did not have any speech slur. The patient was given IV potassium, IV saline, IV magnesium. The patient is not able to function outside of the hospital. She is too weak to navigate her home or stairs. She is going to require rehab. I spoke with the case management team. The patient will require a hospital stay and then transferred to rehab. I spoke with the patient. She understands her current situation. The on-call hospitalist was consulted. Prior/Outside records/notes reviewed: [facility] outpatient note from today discussing her weakness and inability to function in her home. ECG per my interpretation: Indication was weakness. The ECG shows what appears to be a sinus bradycardia with very poor baseline. The rate is 58. There is LVH present. There is a right bundle branch block. No PVCs. The QTc is 449. Continuous Cardiac Monitoring per my interpretation: An order was placed for continuous cardiac monitoring. The monitor shows a rate of 64 with normal sinus rhythm. Imaging/x-ray results per my interpretation: There is cardiomegaly, there is no pneumonia or CHF. Chronic Medical/Social conditions affecting care: Lymphedema, recent sepsis requiring hospitalization. Advanced age. Care/Management discussed with: Case management, the on-call hospitalist. Level of care consideration(s): After review of the information above and other included data: --I believe the patient requires escalation of care to admission DISPOSITION: Admission with a rehab consult. Past Med/Surg History Medical History Chronic diastolic CHF (congestive heart failure) CKD (chronic kidney disease), stage III Paroxysmal atrial flutter Paroxysmal atrial fibrillation Osteoarthritis Depression Poor historian History of breast cancer LEFT Sleep apnea NO DEVICE USED Palliative care encounter AMS (altered mental status) Respiratory acidosis Admitted to intensive care unit Ascending cholangitis E coli bacteremia UTI (urinary tract infection) NSVT (nonsustained ventricular tachycardia) HTN (hypertension) History of paroxysmal supraventricular tachycardia Seen by [facility] cardio 12/18/20, " Although historically she has been diagnosed with "PSVT" it sounds as though she has also had a diagnosis of atrial flutter and on review of telemetry monitoring strips it looks like she has runs of PAT. She also has a twelve-lead electrocardiogram looking like atrial fibrillation. She probably has all of these arrhythmias, but she is asymptomatic with them. Although the heart rate is quite fast she was started on amiodarone and without symptoms it is hard to say what degree of control we have. I do not think extensive monitoring is indicated. I would continue amiodarone for now." History of paroxysmal atrial tachycardia Left anterior fascicular block History of pulmonary embolism ? 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 Lymphedema, not elsewhere classified Diabetes mellitus with neuropathy Surgical History History of anesthesia reaction "MY HEART IS EXTRA FAST WHEN I GET ANESTHESIA" History of cholecystectomy History of ERCP History of tooth extraction History of tonsillectomy History of cataract surgery RT/LEFT H/O left mastectomy S/P right rotator cuff repair S/P hysterectomy Family History Grandmother (Paternal) Family history of diabetes mellitus Other Family history non-contributory No family history of adverse response to anesthesia Social History Smoking Status: Never smoker Second Hand Exposure: No; Do You Dip or Chew Tobacco: No; Hx Alcohol Use: No Hx Substance Use: No Preferred Language: Bolivian Communication Ability: Effective Visual Impairment: Limited Hearing Ability: Normal 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 Beliefs That Will Affect Care: None marital status: Current Living Situation: Spouse current occupational status: retired Feels Safe at Home: Yes Assistive Devices: Oxygen - Continuous and Walker Allergies Allergies Allergy/AdvReac Type Severity Reaction Status Date / Time Penicillins Allergy Severe SOB Verified 10/28/23 16:05 ,THROAT SHUT,COULDN'T BREATHE rosiglitazone Allergy Severe UNKNOWN-RELATED Verified 10/28/23 16:05 POSS TO DVT/PE PER MEDICAL RECORD tramadol Allergy Unknown UNKNOWN Verified 10/28/23 16:05 adhesive AdvReac Mild IRRITATES Verified 10/28/23 16:05 SKIN Home Meds Home Medications Medication Instructions Recorded Confirmed anastrozole 1 mg tablet 1 mg PO DAILY 10/20/23 10/28/23 cholecalciferol (vitamin D3) 50 50 mcg PO Q OTHER DAY 10/20/23 10/28/23 mcg (2,000 unit) capsule (Vitamin D3) cyanocobalamin (vitamin B-12) 1,000 mcg PO DAILY 10/20/23 10/28/23 1,000 mcg tablet (Vitamin B-12) diclofenac sodium 1 % topical gel 4 g topical QID PRN Pain 10/20/23 10/28/23 ferrous sulfate 325 mg (65 mg 325 mg PO DAILY 10/20/23 10/28/23 iron) tablet furosemide 40 mg tablet 40 mg PO AMHS 10/20/23 10/28/23 insulin glargine 100 unit/mL See Rx Instructions .Route .COMPLEX 10/20/23 10/28/23 subcutaneous solution (Lantus U-100 Insulin) lisinopril 10 mg tablet 10 mg PO DAILY 10/20/23 10/28/23 metformin 1,000 mg tablet 1,000 mg PO BID 10/20/23 10/28/23 metoprolol tartrate 25 mg tablet 25 mg PO AMHS 10/20/23 10/28/23 pantoprazole 40 mg tablet,delayed 40 mg PO DAILYBB 10/20/23 10/28/23 release pregabalin 150 mg capsule 150 mg PO BID 10/20/23 10/28/23 tramadol 50 mg tablet 50 mg PO DAILY PRN Pain 10/20/23 10/28/23 warfarin 5 mg tablet (Jantoven) 2.5 - 5 mg PO DIRECTED 10/20/23 10/28/23 Previous Rx's Medication Instructions Recorded cefdinir 300 mg capsule 300 mg PO BID #8 caps 10/26/23 enoxaparin 120 mg/0.8 mL 120 mg (0.8 mL) subcut Q12H #8 mL 10/26/23 subcutaneous syringe (Lovenox) Results & Data (ED) Vital Signs Vital Signs - 24 hr 10/28/23 13:21 10/28/23 16:54 10/28/23 16:56 Temperature 36.7 C Temperature Source Temporal Artery Scan Pulse Rate 64 78 69 Pulse Rate from SpO2 Sensor 78 Pulse Rhythm Regular Pulse Strength Normal Respiratory Rate 20 15 Respiratory Effort / Characteristics Non-Labored Spontaneous Respiratory Depth Normal Respiratory Pattern Regular Blood Pressure 104/55 L Blood Pressure Mean 71 Blood Pressure Position Sitting Pulse Oximetry 100 93 Oxygen Delivery Method Nasal Cannula Nasal Cannula Oxygen Flow Rate 2 2 Sepsis Recent Fever Within 48 Hours No Sepsis New/Unexplained Change in Mental Status No Sepsis Action Taken by Nursing No Action Required 10/28/23 17:00 10/28/23 17:10 10/28/23 17:16 Temperature Temperature Source Pulse Rate 68 70 66 Pulse Rate from SpO2 Sensor 64 68 66 Pulse Rhythm Pulse Strength Respiratory Rate 19 21 23 Respiratory Effort / Characteristics Respiratory Depth Respiratory Pattern Blood Pressure 149/73 H Blood Pressure Mean 98 Blood Pressure Position Pulse Oximetry 94 96 91 Oxygen Delivery Method Nasal Cannula Nasal Cannula Nasal Cannula Oxygen Flow Rate 2 2 2 Sepsis Recent Fever Within 48 Hours Sepsis New/Unexplained Change in Mental Status Sepsis Action Taken by Nursing 10/28/23 17:20 10/28/23 17:30 10/28/23 17:40 Temperature Temperature Source Pulse Rate 70 68 65 Pulse Rate from SpO2 Sensor 67 65 66 Pulse Rhythm Pulse Strength Respiratory Rate 20 21 24 Respiratory Effort / Characteristics Respiratory Depth Respiratory Pattern Blood Pressure Blood Pressure Mean Blood Pressure Position Pulse Oximetry 96 95 97 Oxygen Delivery Method Nasal Cannula Nasal Cannula Nasal Cannula Oxygen Flow Rate 2 2 2 Sepsis Recent Fever Within 48 Hours Sepsis New/Unexplained Change in Mental Status Sepsis Action Taken by Nursing 10/28/23 17:50 10/28/23 18:00 10/28/23 18:10 Temperature Temperature Source Pulse Rate 64 71 70 Pulse Rate from SpO2 Sensor 64 68 68 Pulse Rhythm Pulse Strength Respiratory Rate 19 24 17 Respiratory Effort / Characteristics Respiratory Depth Respiratory Pattern Blood Pressure Blood Pressure Mean Blood Pressure Position Pulse Oximetry 98 98 93 Oxygen Delivery Method Nasal Cannula Nasal Cannula Room Air Oxygen Flow Rate 2 2 Sepsis Recent Fever Within 48 Hours Sepsis New/Unexplained Change in Mental Status Sepsis Action Taken by Nursing 10/28/23 18:20 10/28/23 18:30 10/28/23 18:40 Temperature Temperature Source Pulse Rate 67 68 67 Pulse Rate from SpO2 Sensor 63 68 65 Pulse Rhythm Pulse Strength Respiratory Rate 27 H 15 19 Respiratory Effort / Characteristics Respiratory Depth Respiratory Pattern Blood Pressure Blood Pressure Mean Blood Pressure Position Pulse Oximetry 94 94 92 Oxygen Delivery Method Room Air Room Air Oxygen Flow Rate Sepsis Recent Fever Within 48 Hours Sepsis New/Unexplained Change in Mental Status Sepsis Action Taken by Nursing 10/28/23 18:50 10/28/23 19:00 10/28/23 19:10 Temperature Temperature Source Pulse Rate 68 73 75 Pulse Rate from SpO2 Sensor Pulse Rhythm Pulse Strength Respiratory Rate 26 H 24 31 H Respiratory Effort / Characteristics Respiratory Depth Respiratory Pattern Blood Pressure Blood Pressure Mean Blood Pressure Position Pulse Oximetry Oxygen Delivery Method Oxygen Flow Rate Sepsis Recent Fever Within 48 Hours Sepsis New/Unexplained Change in Mental Status Sepsis Action Taken by Nursing 10/28/23 19:20 10/28/23 19:30 10/28/23 19:40 Temperature Temperature Source Pulse Rate 66 65 80 Pulse Rate from SpO2 Sensor 81 Pulse Rhythm Pulse Strength Respiratory Rate 25 H 25 H 19 Respiratory Effort / Characteristics Respiratory Depth Respiratory Pattern Blood Pressure 138/78 Blood Pressure Mean 98 Blood Pressure Position Pulse Oximetry 97 Oxygen Delivery Method Room Air Oxygen Flow Rate Sepsis Recent Fever Within 48 Hours Sepsis New/Unexplained Change in Mental Status Sepsis Action Taken by Snf Medications Current Medication List: was personally reviewed by me Laboratory Data Attestation: I reviewed the patient's lab results. 10/28/23 13:41 10/28/23 13:41 Lab Results 10/28/23 10/28/23 10/28/23 Range/Units 13:41 16:45 Unknown WBC 9.74 (4.8-10.8) K/ul RBC 4.24 (4.20-5.40) M/uL Hgb 11.3 L (12.0-16.0) g/dl Hct 36.1 L (37.0-47.0) % MCV 85.1 (80.0-100.0) fL MCH 26.7 (25.0-34.0) pg MCHC 31.3 L (32.0-36.0) g/dL RDW Std Deviation 49.1 H (36.4-46.3) fL RDW Coeff of [place] 16.1 H (11.5-14.5) % Plt Count 317 (130-400) K/uL MPV 11.7 (9.4-12.4) fL Immature Gran % (Auto) 3.2 % Neut % (Auto) 66.9 % Lymph % (Auto) 19.0 % [place] % (Auto) 8.5 % Eos % (Auto) 1.7 % Baso % (Auto) 0.7 % Neut # (Auto) 6.51 H (1.40-6.50) K/uL Lymph # (Auto) 1.85 (1.20-3.40) K/uL [place] # (Auto) 0.83 H (0.11-0.59) K/uL Eos # (Auto) 0.17 (0.00-0.50) K/uL Baso # (Auto) 0.07 (0.00-0.20) K/uL Immature Gran # (Auto) 0.31 H (0.01-0.20) K/uL PT 16.8 H (9.0-12.0) Seconds INR 1.6 H (0.9-1.1) APTT 35 H (21-31) Seconds PTT Ratio 1.2 Sodium 137 (136-145) mmol/L Potassium 3.4 L (3.5-5.1) mmol/L Chloride 101 (98-107) mmol/L Carbon Dioxide 24 (21-32) mmol/L Anion Gap 12 H (3-11) BUN 18 (6-23) mg/dl Creatinine 0.85 (0.6-1.2) mg/dl Est Cr Clr Drug Dosing Not Reportable Est GFR ( Amer) 74.5 ml/min Est GFR (Non-Af Amer) 64.3 ml/min BUN/Creatinine Ratio 21.2 H (10-20) Glucose 175 H (70-99(Fasting)) mg/dl Calcium 8.9 (8.6-10.3) mg/dl Magnesium 1.6 L (1.7-2.4) mg/dl Total Bilirubin 0.4 (0.2-1.0) mg/dl AST 23 (13-39) U/L ALT 12 (7-52) U/L Alkaline Phosphatase 44 (34-104) U/L Troponin I High Sens 10.1 (0-14) pg/ml Total Protein 7.2 (6.0-8.3) gm/dl Albumin 3.8 (3.4-5.0) gm/dl Globulin 3.4 (2.5-4.0) gm/dl Albumin/Globulin Ratio 1.1 (0.9-2) Urine Color Yellow Urine Appearance Clear (Clear) Urine pH 5.5 (4.5-7.5) Ur Specific [place] 1.011 (1.000-1.030) Urine Protein Negative (Negative) Urine Glucose (UA) Negative (Negative) Urine Ketones Negative (Negative) Urine Blood Trace H (Negative) Urine Nitrite Negative (Negative) Urine Bilirubin Negative (Negative) Urine Urobilinogen Negative (Negative) Ur Leukocyte Esterase 1+ H (Negative) Urine WBC (Auto) 10-30 H (0-5) /hpf Urine RBC (Auto) 0-4 (0-4) /hpf U Hyaline Cast (Auto) 1-5 (0-5) /lpf U Epithel Cells (Auto) 20-30 H (0-5) /lpf Urine Bacteria (Auto) Negative (Negative) SARS-CoV-2 (PCR) NEGATIVE (Negative) Influenza Type A (PCR) Negative (Neg) Influenza Type B (PCR) Negative (Neg) RSV (RT-PCR) Negative (Neg) Administered Medications Discontinued Medications Sodium Chloride (Nss) 500 mls @ 999 mls/hr IV .Q31M ONE Stop: 10/28/23 15:01 Last Infusion: 10/28/23 18:46 Dose: Infused Documented By: SUPERVISOR JOINERS Admin: 10/28/23 16:18 Dose: 999 mls/hr Documented By: SUPERVISOR JOINERS Magnesium Sulfate/Dextrose (Magnesium Sulfate / D5w) 1 gm in 100 mls @ 100 mls/hr IV NOW STA Stop: 10/28/23 15:55 Last Infusion: 10/28/23 18:00 Dose: Infused Documented By: SUPERVISOR JOINERS Admin: 10/28/23 16:17 Dose: 100 mls/hr Documented By: SUPERVISOR JOINERS Potassium Chloride (K Cristino / Wtr) 10 meq in 100 mls @ 100 mls/hr IV ONE ONE Stop: 10/28/23 15:55 Last Infusion: 10/28/23 18:46 Dose: Infused Documented By: SUPERVISOR JOINERS Admin: 10/28/23 16:17 Dose: 100 mls/hr Documented By: SUPERVISOR JOINERS Imaging Data Radiologist's Impression: Abdomen/Pelvis CT 10/28/23 14:31 CT SCAN OF THE ABDOMEN AND PELVIS WITHOUT IV CONTRAST CLINICAL HISTORY: Urinary tract infection. Generalized weakness. COMPARISON STUDY: Abdominal CT dated 11/21/2020. TECHNIQUE: CT scan of the abdomen and pelvis is performed from the lung bases to the proximal femora. Images are reviewed in the axial, sagittal, and coronal planes. IV contrast was not administered for this examination. A dose lowering technique was utilized adhering to the principles of ALARA. The examination is degraded by large body habitus, and by streak artifact from the body wall abutting the CT gantry. CT DOSE: 1324.46 mGy.cm FINDINGS: Lung bases: The heart is mildly enlarged and without pericardial effusion. The coronary arteries are densely calcified. The lung bases are clear noting bibasilar scarring/atelectasis. There is a small hiatal hernia. Liver: The unenhanced liver is enlarged, measuring 18.5 cm in length. The liver demonstrates diffusely diminished attenuation indicating steatosis. There is no intrahepatic biliary ductal dilatation. Gallbladder: There are calcified gallstones with no CT evidence of acute cholecystitis. Postsurgical change is suggested in the fundal region. Spleen: Normal in size and attenuation. A 5.2 cm cystic lesion in the spleen has modestly increased in size dating back to 2020. Pancreas: The unenhanced pancreas is mildly atrophic and grossly unremarkable. Adrenal glands: A 1.7 cm right adrenal adenoma is unchanged. The left adrenal gland is normal as imaged. Kidneys: The unenhanced kidneys demonstrate cortical atrophy and are without hydronephrosis. No renal calculi are identified and no ureteral stone is seen. There is no evidence of contour deforming renal mass lesion. Abdominal vasculature: The abdominal aorta is normal in course and caliber noting moderate atherosclerotic calcification. Bowel: There is no bowel obstruction. There is mild diverticulosis of the small bowel without CT evidence of acute diverticulitis. Duodenal diverticula are noted. The appendix is well-visualized and normal. Peritoneum: There is no intraperitoneal free air or abdominal ascites. There is laxity of the ventral abdominal wall with diastases of the rectus musculature and protrusion of abdominal contents. Lymphadenopathy: None. Pelvic viscera: The bladder is normal as visualized. The uterus is surgically absent. An approximately 3 cm ovoid cystic focus in the left adnexa seen on image #254 has been present back 2020 and is of low suspicion. Skeletal structures: The skeletal structures are osteopenic. There is moderate lumbosacral spondylosis. Degenerative sclerosis is noted in the sacroiliac joints. There is a minimal chronic compression deformity of L1. No lytic or blastic lesions are seen. IMPRESSION: 1. No acute infectious or inflammatory findings are identified in the abdomen or pelvis. 2. Hepatomegaly and hepatic stenosis. 3. Cholelithiasis. 4. Cardiomegaly. 5. Additional findings as above. ACT 112: Negative or not required by law. Electronically signed by: Martinez Cuadra M.D. 10/28/2023 4:19 PM Chest X-Ray 10/28/23 14:31 SINGLE VIEW CHEST CLINICAL HISTORY: Generalized weakness. FINDINGS: An AP, portable, upright chest radiograph is compared to study dated 10/20/2023 and correlated with chest CT dated 10/24/2021. The examination is degraded by portable technique and patient rotation. The heart is enlarged noting atherosclerotic calcification of the thoracic aorta. The pulmonary vasculature is noncongested. Scattered foci of parenchymal scarring are seen throughout both lungs. No airspace consolidation or large pleural effusion is identified. No pneumothorax is seen. The skeletal structures are osteopenic. The bony thorax is grossly intact. IMPRESSION: Cardiomegaly with no active disease in the chest. ACT 112: Negative or not required by law. Electronically signed by: Martinez Cuadra M.D. 10/28/2023 3:05 PM Discharge Plan Visit Data Chief Complaint: Illness Stated Complaint: ILLNESS ED Provider: Martinez Robles Discharge Problem: Weakness, Ambulatory dysfunction, Recent urinary tract infection, History of sepsis, Hypomagnesemia, Hypokalemia Patient Disposition: Admitted As Inpatient Condition: Fair Forms Stand Alone Forms: My [facility] Prescriptions Prescriptions: No Action furosemide 40 mg tablet 40 mg PO AMHS anastrozole 1 mg tablet 1 mg PO DAILY insulin glargine [Lantus U-100 Insulin] 100 unit/mL solution See Rx Instructions .ROUTE .COMPLEX Rx Instructions: TAKES 36 UNITS QAM, THEN 42 UNITS QPM. cyanocobalamin (vitamin B-12) [Vitamin B-12] 1,000 mcg Tablet 1,000 mcg PO DAILY tramadol 50 mg tablet 50 mg PO DAILY PRN (Reason: Pain) pantoprazole 40 mg tablet,delayed release (DR/EC) 40 mg PO DAILYBB ferrous sulfate 325 mg (65 mg iron) Tablet 325 mg PO DAILY metformin 1,000 mg tablet 1,000 mg PO BID lisinopril 10 mg tablet 10 mg PO DAILY warfarin [Jantoven] 5 mg tablet 2.5 - 5 mg PO DIRECTED Rx Instructions: warfarin 2.5mg po on Tuesday and 5mg po daily on other days metoprolol tartrate 25 mg tablet 25 mg PO AMHS pregabalin 150 mg capsule 150 mg PO BID Rx Instructions: TAKE IN AM & BEFORE HS diclofenac sodium 1 % Gel 4 g TOPICAL QID PRN (Reason: Pain) Rx Instructions: KNEES cholecalciferol (vitamin D3) [Vitamin D3] 50 mcg (2,000 unit) Capsule 50 mcg PO Q OTHER DAY cefdinir 300 mg Capsule 300 mg PO BID Qty: 8 0RF Rx Instructions: STARTED 10/26/23 FOR 4 DAYS. enoxaparin [Lovenox] 120 mg/0.8 mL Syringe 120 mg subcut Q12H Qty: 8 0RF Referrals Referrals: Christiano Felton MD [Primary Care Provider] -
[2023-10-28 14:56] LABS: INR 1.6 (0.9-1.1); Partial Thromboplastin Ratio 1.2; Partial Thromboplastin Time 35 Seconds (21-31); Prothrombin Time 16.8 Seconds (9.0-12.0)
[2023-10-28] MEDS ORDERED: POTASSIUM CHLORIDE / WTR 10 MEQ/100 ML PLCT IV ONE (14:56)
[2023-10-28] MEDS ORDERED: MAGNESIUM SULFATE / D5W 1 GM/100 ML BAG IV STA (14:56)
[2023-10-28 14:59] LABS: Troponin I High Sensitivity 10.1 pg/ml (0-14)
--- NOTE | 2023-10-28 15:06 | XRay Report ---
SINGLE VIEW CHEST CLINICAL HISTORY: Generalized weakness. FINDINGS: An AP, portable, upright chest radiograph is compared to study dated 10/20/2023 and correlat ed with chest CT dated 10/24/2021. The examination is degraded by portable technique and patient rota tion. The heart is enlarged noting atherosclerotic calcification of the thoracic aorta. The pulmonar y vasculature is noncongested. Scattered foci of parenchymal scarring are seen throughout both lungs. No airspace consolidation or large pleural effusion is identified. No pneumothorax is seen. The skel etal structures are osteopenic. The bony thorax is grossly intact. IMPRESSION: Cardiomegaly with no active disease in the chest. ACT 112: Negative or not required by law. Electronically signed by: Martinez Cuadra M.D. 10/28/2023 3:05 PM
--- NOTE | 2023-10-28 16:20 | CT Scan Report ---
CT SCAN OF THE ABDOMEN AND PELVIS WITHOUT IV CONTRAST CLINICAL HISTORY: Urinary tract infection. Generalized weakness. COMPARISON STUDY: Abdominal CT dated 11/21/2020. TECHNIQUE: CT scan of the abdomen and pelvis is performed from the lung bases to the proximal femora. Images are reviewed in the axial, sagittal, and coronal planes. IV contrast was not administered for this examination. A dose lowering technique was utilized adhering to the principles of ALARA. The ex amination is degraded by large body habitus, and by streak artifact from the body wall abutting the C T gantry. CT DOSE: 1324.46 mGy.cm FINDINGS: Lung bases: The heart is mildly enlarged and without pericardial effusion. The coronary arteries are densely calcified. The lung bases are clear noting bibasilar scarring/atelectasis. There is a small h iatal hernia. Liver: The unenhanced liver is enlarged, measuring 18.5 cm in length. The liver demonstrates diffusel y diminished attenuation indicating steatosis. There is no intrahepatic biliary ductal dilatation. Gallbladder: There are calcified gallstones with no CT evidence of acute cholecystitis. Postsurgical change is suggested in the fundal region. Spleen: Normal in size and attenuation. A 5.2 cm cystic lesion in the spleen has modestly increased i n size dating back to 2020. Pancreas: The unenhanced pancreas is mildly atrophic and grossly unremarkable. Adrenal glands: A 1.7 cm right adrenal adenoma is unchanged. The left adrenal gland is normal as imag ed. Kidneys: The unenhanced kidneys demonstrate cortical atrophy and are without hydronephrosis. No renal calculi are identified and no ureteral stone is seen. There is no evidence of contour deforming yennifer l mass lesion. Abdominal vasculature: The abdominal aorta is normal in course and caliber noting moderate atheroscle rotic calcification. Bowel: There is no bowel obstruction. There is mild diverticulosis of the small bowel without CT evid ence of acute diverticulitis. Duodenal diverticula are noted. The appendix is well-visualized and no rmal. Peritoneum: There is no intraperitoneal free air or abdominal ascites. There is laxity of the ventral abdominal wall with diastases of the rectus musculature and protrusion of abdominal contents. Lymphadenopathy: None. Pelvic viscera: The bladder is normal as visualized. The uterus is surgically absent. An approximatel y 3 cm ovoid cystic focus in the left adnexa seen on image #254 has been present back 2020 and is of low suspicion. Skeletal structures: The skeletal structures are osteopenic. There is moderate lumbosacral spondylosi s. Degenerative sclerosis is noted in the sacroiliac joints. There is a minimal chronic compression d eformity of L1. No lytic or blastic lesions are seen. IMPRESSION: 1. No acute infectious or inflammatory findings are identified in the abdomen or pelvis. 2. Hepatomegaly and hepatic stenosis. 3. Cholelithiasis. 4. Cardiomegaly. 5. Additional findings as above. ACT 112: Negative or not required by law. Electronically signed by: Martinez Cuadra M.D. 10/28/2023 4:19 PM
[2023-10-28 17:27] LABS: Influenza A virus by PCR Negative (Neg); Influenza B virus by PCR Negative (Neg); RSV by PCR Negative (Neg); SARS CoV2 RNA(COVID-19) Ceph NEGATIVE (Negative)
--- NOTE | 2023-10-28 17:31 | History & Physical Report ---
Date of Service October 28, 2023 Assessment & Plan (1) Generalized weakness: (2) Ambulatory dysfunction: (3) Recent urinary tract infection: (4) Hypokalemia: (5) Hypomagnesemia: (6) Paroxysmal atrial fibrillation: (7) Lymphedema, not elsewhere classified: (8) History of pulmonary embolism: (9) DM type 2 (diabetes mellitus, type 2): Plan: This is an 83-year-old female with past med history significant for type 2 diabetes, diabetic polyneuropathy, obstructive sleep apnea noncompliant with CPAP on 2 L oxygen, paroxysmal SVT, nonsustained ventricular tachycardia, A- flutter, diastolic CHF, hypertension, nonrheumatic aortic valve stenosis, obesity, GERD, CKD stage III, osteoarthritis, history of breast cancer, history of chronic lymphedema, history of PE who presents with generalized weakness and inability to ambulate since discharge. Hospitalized 10 20-10/26 secondary to sepsis and E. coli urinary tract infection. During hospital stay refused physical therapy. Was discharged home and now presents with profound weakness. Generalized weakness Ambulatory dysfunction Recent hospitalization secondary to urinary tract infection and sepsis Admit to med telemetry Continue oral cefdinir and complete course Clinically patient appears much improved, no evidence of acute infection Likely general deconditioning in setting of recent acute illness PT/OT consult, CM to get involved for likely rehab am labs of cbc, bmp, mag, pt/inr ordered Hypokalemia Replace, keep above 4 secondary to history of arrhythmias Hypomagnesemia Replace, keep above 2.0 secondary to history of arrhythmias History of PE Subtherapeutic INR Continue Lovenox/Coumadin bridge until INR greater than 2 May need increased Coumadin dosing as INR still 1.6 T2DM A1c 7.3 on 10/21 Lantus/NovoLog per protocol Chronic, stable Chronic bilateral edema Chronic, stable No evidence of cellulitis Obstructive sleep apnea Oxygen at bedtime, patient noncompliant with CPAP History of chronic diastolic CHF Moderate aortic valve stenosis continue lasix, add KCL supplementation received fluids on admission Monitor for volume overload History of a flutter History of paroxysmal SVT Continue metoprolol and Coumadin Hypertension Continue metoprolol Lisinopril on hold, resume if able History of breast cancer S/p left mastectomy On anastrozole Follows with heme/onco DVT prophylaxis On Coumadin Disposition admit to med tele, PT/OT, will need rehab Full code PCP: Jose Francisco Pt was seen and examined in collaboration with Dr. Pillai, please see addendum A total of 76 was spent coordinating, documenting, and providing care for this patient excluding time spent in the performance of separately billed services. This included personally viewing all current laboratories and imaging studies, medication reconciliation, outpatient chart review, and discussion with specialists. History of Present Illness Chief Complaint: Generalized weakness Primary Care Provider: Christiano Felton MD This is an 83-year-old female with past med history significant for type 2 diabetes, diabetic polyneuropathy, obstructive sleep apnea noncompliant with CPAP on 2 L oxygen, paroxysmal SVT, nonsustained ventricular tachycardia, A- flutter, diastolic CHF, hypertension, nonrheumatic aortic valve stenosis, obesity, GERD, CKD stage III, osteoarthritis, history of breast cancer, history of chronic lymphedema, history of PE who presents with generalized weakness and inability to ambulate since discharge. Of significance patient was recently admitted 10/20 to 10/26 secondary to severe sepsis in setting of UTI. Urine culture grew gram-negative bacilli E. coli and blood culture was negative. She received IV antibiotics and transition to oral cefdinir at discharge. There was also concern about a possible component of bronchitis and therefore she was empirically treated with doxycycline while hospitalized. She does have prior history of PE and therefore is on warfarin. Her INR was subtherapeutic and she was discharged on Lovenox injections along with her Coumadin. She refused physical therapy evaluation while she was hospitalized and wants to be discharged home. Unfortunately since discharge home patient has been doing unwell, generally weak inability to ambulate. She was seen and evaluated by PCP and referred back to ED due to difficulty ambulating in and out of the clinic. She felt she was doing well on day #1 from discharge but continued to get increasingly more weak and even had difficulty getting in and out of the house. She otherwise feels well. She denies any fever, chills, sweats, lightheade dness, dizziness, chest pain, shortness of breath, nausea, vomit, abdominal pain. Overall her appetite has continued to be poor and she feels she has lost weight. She does have chronic dyspnea on exertion. She also has chronic bilateral lower extremity lymphedema. She wears bilateral Darco shoes due to inability for her feet to fit in normal shoes. In ED patient remained hemodynamically stable. Her CBC revealed H&H 11.3 and 36.1, platelet 317, INR 1.6, hypokalemia 3.4, BUN and creatinine 18/.85, glucose 175, mag low at 1.6. Her urinalysis was negative. She continues to take oral cefdinir for urinary tract infection. Her chest x-ray was negative for any acute abnormality. Allergies Allergy/AdvReac Type Severity Reaction Status Date / Time Penicillins Allergy Severe SOB Verified 10/28/23 16:05 ,THROAT SHUT,COULDN'T BREATHE rosiglitazone Allergy Severe UNKNOWN-RELATED Verified 10/28/23 16:05 POSS TO DVT/PE PER MEDICAL RECORD tramadol Allergy Unknown UNKNOWN Verified 10/28/23 16:05 adhesive AdvReac Mild IRRITATES Verified 10/28/23 16:05 SKIN Home Medications Medication Instructions Recorded Confirmed Type anastrozole 1 mg tablet 1 mg PO DAILY 10/20/23 10/28/23 History cholecalciferol (vitamin D3) 50 50 mcg PO Q OTHER DAY 10/20/23 10/28/23 History mcg (2,000 unit) capsule (Vitamin D3) cyanocobalamin (vitamin B-12) 1,000 mcg PO DAILY 10/20/23 10/28/23 History 1,000 mcg tablet (Vitamin B-12) diclofenac sodium 1 % topical gel 4 g topical QID PRN Pain 10/20/23 10/28/23 History ferrous sulfate 325 mg (65 mg 325 mg PO DAILY 10/20/23 10/28/23 History iron) tablet furosemide 40 mg tablet 40 mg PO AMHS 10/20/23 10/28/23 History insulin glargine 100 unit/mL See Rx Instructions .Route .COMPLEX 10/20/23 10/28/23 History subcutaneous solution (Lantus U-100 Insulin) lisinopril 10 mg tablet 10 mg PO DAILY 10/20/23 10/28/23 History metformin 1,000 mg tablet 1,000 mg PO BID 10/20/23 10/28/23 History metoprolol tartrate 25 mg tablet 25 mg PO AMHS 10/20/23 10/28/23 History pantoprazole 40 mg tablet,delayed 40 mg PO DAILYBB 10/20/23 10/28/23 History release pregabalin 150 mg capsule 150 mg PO BID 10/20/23 10/28/23 History tramadol 50 mg tablet 50 mg PO DAILY PRN Pain 10/20/23 10/28/23 History warfarin 5 mg tablet (Jantoven) 2.5 - 5 mg PO DIRECTED 10/20/23 10/28/23 History cefdinir 300 mg capsule 300 mg PO BID #8 caps 10/26/23 10/28/23 Rx enoxaparin 120 mg/0.8 mL 120 mg (0.8 mL) subcut Q12H #8 mL 10/26/23 10/28/23 Rx subcutaneous syringe (Lovenox) Past Med/Surg History Medical History Chronic diastolic CHF (congestive heart failure) CKD (chronic kidney disease), stage III Paroxysmal atrial flutter Paroxysmal atrial fibrillation Osteoarthritis Depression Poor historian History of breast cancer LEFT Sleep apnea NO DEVICE USED Palliative care encounter AMS (altered mental status) Respiratory acidosis Admitted to intensive care unit Ascending cholangitis E coli bacteremia UTI (urinary tract infection) NSVT (nonsustained ventricular tachycardia) HTN (hypertension) History of paroxysmal supraventricular tachycardia Seen by [facility] cardio 12/18/20, " Although historically she has been diagnosed with "PSVT" it sounds as though she has also had a diagnosis of atrial flutter and on review of telemetry monitoring strips it looks like she has runs of PAT. She also has a twelve-lead electrocardiogram looking like atrial fibrillation. She probably has all of these arrhythmias, but she is asymptomatic with them. Although the heart rate is quite fast she was started on amiodarone and without symptoms it is hard to say what degree of control we have. I do not think extensive monitoring is indicated. I would continue amiodarone for now." History of paroxysmal atrial tachycardia Left anterior fascicular block History of pulmonary embolism ? DATE (REASON FOR WARFARIN) DM type 2 (diabetes mellitus, type 2) Acute cholecystitis due to biliary calculus Cholangitis Chronic venous insufficiency PAD (peripheral artery disease) Vitamin D insufficiency group home (current) use of 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 Lymphedema, not elsewhere classified Diabetes mellitus with neuropathy Surgical History History of anesthesia reaction "MY HEART IS EXTRA FAST WHEN I GET ANESTHESIA" History of cholecystectomy History of ERCP History of tooth extraction History of tonsillectomy History of cataract surgery RT/LEFT H/O left mastectomy S/P right rotator cuff repair S/P hysterectomy Family History Grandmother (Paternal) Family history of diabetes mellitus Other Family history non-contributory No family history of adverse response to anesthesia Social History Smoking Status: Never smoker Second Hand Exposure: No; Do You Dip or Chew Tobacco: No; Hx Alcohol Use: No Hx Substance Use: No Preferred Language: Kyrgyz Communication Ability: Effective Visual Impairment: Limited Hearing Ability: Normal Natural Sciences Manager Required: No Beliefs That Will Affect Care: None marital status: Current Living Situation: Spouse current occupational status: retired Feels Safe at Home: Yes Assistive Devices: Oxygen - Continuous and Walker Review of Systems Review of Systems: All systems reviewed & are unremarkable except as noted in HPI & below Physical Exam Physical Exam: Constitutional: WD/WN, obese, female, is chilled, vitals as above, NAD, sitting up in bed, pleasant, conversing easily Head: Normocephalic, Atraumatic Eyes: PERRL, conjunctivae normal, anicteric sclerae ENMT: external ear and nose normal, oropharynx normal Neck: trachea midline, no thyromegaly normal visual inspection Respiratory: normal respiratory effort, lungs clear to auscultation, no wheeze, rales, rhonchi. Normal insp/exp effort, no accessory muscle use Cardiovascular: RRR, no murmur, bilateral lower extremity lymphedema, mild venous stasis change, no erythema, warmth Vessels: no JVD or carotid bruit Chest: normal inspection of chest Abdomen: Obese abdomen, normal bowel sounds, soft, nontender, no hepatosplenomegaly Musculoskeletal: no cyanosis or clubbing, active range of motion x 4 Skin: no rashes, warm and dry normal turgor Neurologic: PERRL, EOMI, accommodation nl, no face palsy, no dysarthria CN's II-XI intact bilaterally and moves all extremities Psychiatric: A+Ox3, euthymic affect Lymphatic: no cervical or axillary lymphadenopathy : deferred Results & Data Results & Data Vital Signs (Past 12 Hours) Vital Signs Temp Pulse Resp BP Pulse Ox O2 Del Method O2 Flow Rate 10/28/23 16:56 69 10/28/23 13:21 36.7 C 64 20 104/55 L 100 Nasal Cannula 2 Laboratory Results I have independently reviewed and interpreted patient's admitting labs including CBC, CMP, PTT, PT/INR, mag and troponin. Diagnostic Findings Abdomen/Pelvis CT 10/28/23 14:31 CT SCAN OF THE ABDOMEN AND PELVIS WITHOUT IV CONTRAST CLINICAL HISTORY: Urinary tract infection. Generalized weakness. COMPARISON STUDY: Abdominal CT dated 11/21/2020. TECHNIQUE: CT scan of the abdomen and pelvis is performed from the lung bases to the proximal femora. Images are reviewed in the axial, sagittal, and coronal planes. IV contrast was not administered for this examination. A dose lowering technique was utilized adhering to the principles of ALARA. The examination is degraded by large body habitus, and by streak artifact from the body wall abutting the CT gantry. CT DOSE: 1324.46 mGy.cm FINDINGS: Lung bases: The heart is mildly enlarged and without pericardial effusion. The coronary arteries are densely calcified. The lung bases are clear noting bibasilar scarring/atelectasis. There is a small hiatal hernia. Liver: The unenhanced liver is enlarged, measuring 18.5 cm in length. The liver demonstrates diffusely diminished attenuation indicating steatosis. There is no intrahepatic biliary ductal dilatation. Gallbladder: There are calcified gallstones with no CT evidence of acute cholecystitis. Postsurgical change is suggested in the fundal region. Spleen: Normal in size and attenuation. A 5.2 cm cystic lesion in the spleen has modestly increased in size dating back to 2020. Pancreas: The unenhanced pancreas is mildly atrophic and grossly unremarkable. Adrenal glands: A 1.7 cm right adrenal adenoma is unchanged. The left adrenal gland is normal as imaged. Kidneys: The unenhanced kidneys demonstrate cortical atrophy and are without hydronephrosis. No renal calculi are identified and no ureteral stone is seen. There is no evidence of contour deforming renal mass lesion. Abdominal vasculature: The abdominal aorta is normal in course and caliber not ing moderate atherosclerotic calcification. Bowel: There is no bowel obstruction. There is mild diverticulosis of the small bowel without CT evidence of acute diverticulitis. Duodenal diverticula are noted. The appendix is well-visualized and normal. Peritoneum: There is no intraperitoneal free air or abdominal ascites. There is laxity of the ventral abdominal wall with diastases of the rectus musculature and protrusion of abdominal contents. Lymphadenopathy: None. Pelvic viscera: The bladder is normal as visualized. The uterus is surgically absent. An approximately 3 cm ovoid cystic focus in the left adnexa seen on image #254 has been present back 2020 and is of low suspicion. Skeletal structures: The skeletal structures are osteopenic. There is moderate lumbosacral spondylosis. Degenerative sclerosis is noted in the sacroiliac joints. There is a minimal chronic compression deformity of L1. No lytic or blastic lesions are seen. IMPRESSION: 1. No acute infectious or inflammatory findings are identified in the abdomen or pelvis. 2. Hepatomegaly and hepatic stenosis. 3. Cholelithiasis. 4. Cardiomegaly. 5. Additional findings as above. ACT 112: Negative or not required by law. Electronically signed by: Martinez Cuadra M.D. 10/28/2023 4:19 PM Chest X-Ray 10/28/23 14:31 SINGLE VIEW CHEST CLINICAL HISTORY: Generalized weakness. FINDINGS: An AP, portable, upright chest radiograph is compared to study dated 10/20/2023 and correlated with chest CT dated 10/24/2021. The examination is degraded by portable technique and patient rotation. The heart is enlarged noting atherosclerotic calcification of the thoracic aorta. The pulmonary vasculature is noncongested. Scattered foci of parenchymal scarring are seen thr oughout both lungs. No airspace consolidation or large pleural effusion is identified. No pneumothorax is seen. The skeletal structures are osteopenic. The bony thorax is grossly intact. IMPRESSION: Cardiomegaly with no active disease in the chest. ACT 112: Negative or not required by law. Electronically signed by: Martinez Cuadra M.D. 10/28/2023 3:05 PM Medications Administered Medication List Discontinued Medications Sodium Chloride (Nss) 500 mls @ 999 mls/hr IV .Q31M ONE Stop: 10/28/23 15:01 Last Admin: 10/28/23 16:18 Dose: 999 mls/hr Documented By: YASMINE Magnesium Sulfate/Dextrose (Magnesium Sulfate / D5w) 1 gm in 100 mls @ 100 mls/hr IV NOW STA Stop: 10/28/23 15:55 Last Admin: 10/28/23 16:17 Dose: 100 mls/hr Documented By: FIELD TECHNICAL SPECIALIST Potassium Chloride (K Cristino / Wtr) 10 meq in 100 mls @ 100 mls/hr IV ONE ONE Stop: 10/28/23 15:55 Last Admin: 10/28/23 16:17 Dose: 100 mls/hr Documented By: FIELD TECHNICAL SPECIALIST Code Status & VTE Plan Code Status Full code VTE Prophylaxis Plan VTE Prophylaxis will be ordered: No Reason for no VTE drug order: Treatment not indicated Supervising Physician Co-Signing Physician Notes Care coordinated with Yoly Escobedo PA-C. Agree with able note. Patient seen and examined. Please refer to her notes for full details. Vital signs reviewed. Physical exam: General exam: Alert and oriented. Not in acute distress. CVS: S1 and S2 heard, regular rate and rhythm, no murmurs. RS: Clear to auscultation, no wheezing or crackles. ABD: Soft, bowel sounds present, nontender, no distention. SCIENTIST IMMUNOLOGY: Nonfocal. EXT: No edema, no erythema. Labs: Reviewed. Assessment and plan:83F who was recently in hospital with sepsis from UTI discharged home comes with weakness and electrolyte abnormalities Weakness recent hospitalization with sepsis from uti pt/ot may need placement Electrolyte abnormalities will replace follow labs Other diagnosis and plan of care as per Yoly Escobedo PA-C . Todd dalal MD.
[2023-10-28 17:37] LABS: Appearance Urine Clear (Clear); Bacteria Urine Automated Negative (Negative); Bilirubin Urine Negative (Negative); Blood Urine Trace (Negative); Color Urine Yellow; Epithelial Cell Urine Auto 20-30 /lpf (0-5); Glucose Urine UA Negative (Negative); Ketones Urine Negative (Negative); Leukocyte Esterase Urine 1+ (Negative); Nitrite Urine Negative (Negative); Protein Urine Negative (Negative); RBC Urine Automated 0-4 /hpf (0-4); Specific Gravity Urine 1.011 (1.000-1.030); Urobilinogen Urine Negative (Negative); pH Urine 5.5 (4.5-7.5)
[2023-10-28] MEDS ORDERED: POTASSIUM CHLORIDE CRTAB 20 MEQ TABCR PO STA (18:10)
[2023-10-28] MEDS ORDERED: traMADol HCL 50 MG TABLET PO PRN (21:38)
[2023-10-28] MEDS ORDERED: DEXTROSE 50% 50 ML SYRINGE IV PRN (21:38)
[2023-10-28] MEDS ORDERED: ONDANSETRON INJ 2 MG/ML 2 ML VIAL IV PRN (21:38)
[2023-10-28] MEDS ORDERED: GLUCOSE 40% GEL 15 GM TUBE PO PRN (21:38)
[2023-10-28] MEDS ORDERED: ALUMINUM/MAGNESIUM SUSP 30 ML UDC PO PRN (21:38)
[2023-10-28] MEDS ORDERED: MAGNESIUM HYDROXIDE SUSP 30 ML UDC PO PRN (21:38)
[2023-10-28] MEDS ORDERED: GLUCOSE 10 TAB/TUBE PO PRN (21:38)
[2023-10-28] MEDS ORDERED: CARBOHYDRATES FOR HYPOGLYCEMIA PO PRN (21:38)
[2023-10-28] MEDS ORDERED: ACETAMINOPHEN 325 MG TAB PO PRN (21:38)
[2023-10-28] MEDS ORDERED: POLYETHYLENE (MIRALAX) 17 GM PACK PO PRN (21:38)
[2023-10-28] MEDS ORDERED: GLUCAGON FOR INJ 1 MG VIAL SQ PRN (21:38)
[2023-10-28] MEDS ORDERED: Patient's HEIGHT &/or WEIGHT Needed SCH (22:00)
[2023-10-28] MEDS ORDERED: WARFARIN SOD 2.5 MG TAB PO SCH (22:00)
[2023-10-28] MEDS ORDERED: Patient's HEIGHT &/or WEIGHT Needed STA (22:09)
[2023-10-28] MEDS ORDERED: ENOXAPARIN INJ 120 MG/0.8 ML SYR SQ STA (22:23)
[2023-10-28] MEDS: PREGABALIN 150 MG CAP PO SCH (22:43)
[2023-10-28] MEDS: LANTUS PER UNIT CHARGE SQ SCH (22:45)
[2023-10-28] MEDS: INSULIN ASPART PER UNIT CHARGE SC SCH (22:46)
[2023-10-28] MEDS: METOPROLOL TARTRATE 25 MG TAB PO SCH (22:47)
[2023-10-28] MEDS: FUROSEMIDE 40 MG TAB PO SCH (22:47)
[2023-10-28] MEDS: CEFDINIR 300 MG CAP PO SCH (22:47)
--- OUTSIDE RECORDS SUMMARY | 2023-10-28 23:47 | External Medical Summary | Summary of Care ---
Author Name Unknown Organization [facility] Address [address] [place] [address] Phone [phone] Care Team Providers Care Band Cutting Machine Operator Name Role Phone Christiano Felton MD Primary Care Provider [phone] Reason for Visit * Reason Onset Date Comments Hospital Follow-Up 10/27/2023 ERICA Encounter Details Date Type Department Care Team (Late st Contact Info) Description 10/27/[address] [facility] [address] [place] [address] Shivani Sarkar RN Hospital Follow-Up (ERICA) Allergies Active Allergy Reactions Criticality Noted Date Comments Adhesive Tape 07/22/2017 Penicillins 09/07/1999 Difficulty breathing Rosiglitazone Maleate 12/25/2004 possible relation to DVT, PE's documented as of this encounter (statuses as of 10/27/2023) Medications Medication Sig Dispensed Refills Start Date End Date Status VOLTAREN 1 % TD GELIndications:Gener alized osteoarthritis Apply to affected area(knees) 4 grams up to 4 times daily 100 g 5 08/29/2013 Active Vitamin B-12 1000 MCG Sublingual Tablet SublingualIndication s:B12 deficiency Take 1 Tab by mouth daily. 90 Tab 1 12/12/2020 Active Vitamin D3 50 MCG (1999 UT) Oral Capsule Take 1 Cap by mouth every other day. 30 Cap 1 12/12/2020 Active Anastrozole 1 MG Oral Tablet (Arimidex)Indication s:Malignant neoplasm of upper-outer quadrant of left breast in female, estrogen receptor positive TAKE 1 TABLET BY MOUTH ONCE DAILY 90 Tablet 3 01/28/2023 Active Warfarin Sodium 5 MG Oral Tablet (Jantoven)Indication s:History of pulmonary embolism,Anticoagula tion management encounter,gluer current use of anticoagulant therapy TAKE ONE-HALF TO ONE TABLET (2.5MG TO 5MG) BY MOUTH ONCE DAILY INSTRUCTED BY [facility] 90 Tablet 3 03/11/2023 Active Lisinopril 10 MG Oral Tablet (Prinivil)Indication s:Type 2 diabetes mellitus with stage 3b chronic kidney disease, with long-term current use of insulin ([facility]),HTN, goal below 140/90 TAKE 1 TABLET BY MOUTH ONCE DAILY 90 Tablet 2 03/22/2023 Active Accu-Chek Lennie Plus In Vitro Strip (Glucose Blood) USE STRIP TO CHECK GLUCOSE 2 TO 3 TIMES DAILY FOR UNCONTROLLED DIABETES. 300 Strip 3 03/25/2023 Active Pregabalin 150 MG Oral Capsule (Lyrica)Indications: Type 2 diabetes mellitus with diabetic nephropathy, with long-term current use of insulin ([facility]) Take 1 Capsule by mouth in the [...] disease, with long-term current use of insulin ([facility]) TAKE 1 TABLET BY MOUTH TWICE DAILY; morning and before bedtime 180 Tablet 2 07/31/2023 Active Furosemide 40 MG Oral Tablet (Lasix)Indications:H eart failure, diastolic, due to HTN ([facility]),Chronic acquired lymphedema TAKE ONE TABLET BY MOUTH IN THE MORNING AND ONE BEFORE BEDTIME 180 Tablet 1 08/15/2023 Active Insulin Glargine 100 UNIT/ML Subcutaneous Solution (Lantus)Indications: Type 2 diabetes mellitus with hemoglobin A1c goal of less than 8.0% ([facility]) INJECT 36 UNITS UNDER THE SKIN IN THE MORNING AND 42 UNITS IN THE EVENING 90 mL 0 08/19/2023 Active BD Insulin Syringe U-500 31G X 6MM 0.5 ML (Insulin Syringe/Needle U-500)Indications:Ty pe 2 diabetes mellitus with stage 1 chronic kidney disease, unspecified whether group home insulin use Use as directed. Use for [...] every day 90 Tablet 3 09/20/2023 Active traMADol HCl 50 MG Oral Tablet (Ultram)Indications: Type 2 diabetes mellitus with diabetic nephropathy, with long-term current use of insulin (HCC) Take 1 Tablet by mouth daily as needed for Pain, Moderate. 30 Tablet 0 10/11/2023 Active Cefdinir 300 MG Oral Capsule (Omnicef) Take 1 Capsule by mouth in the morning and 1 Capsule before bedtime. 0 01/01/2023 Active Enoxaparin Sodium 120 MG/0.8ML Injection Solution Prefilled Syringe (Lovenox) Inject 120 mg under the skin in the morning and 120 mg before bedtime. 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 GENERAL OSTEOARTHROSIS 09/22/1999 Lymphedema documented as of this encounter (statuses as of 10/27/2023) Resolved Problems Problem Noted Date Diagnosed Date [...] as of this encounter (statuses as of 10/27/2023) Immunizations Name Administration Dates Next Due Pneumococcal Conjugate Vacc, 13 Valent (Prevnar) 08/09/2017 Pneumococcal Polysaccharide PPV23 (Pneumovax) 07/24/2008 Seasonal Influenza, PF, 6 M & above, IM , (FluLaval or Fluzone) 08/04/2020,07/30/2019,09/04/2018,09/12 Seasonal Influenza, Quadriva lent Hd (Fluzone [...] encounter Miscellaneous Notes * Telephone Encounter - Shivani Sarkar RN - 10/27/2023 10:21 AM EST Images from the original note were not included. Transitions of Care Note Reason for Referral:Recent Admission Phone visit for follow up: ERICA Admitted to: [facility], Date: 10/20/2023 Discharged to: Home, Date: 10/26/2023 Diagnosis driving hospitalization: Severe Sepsis, UTI Source/Contact: Patient SUBJECTIVE Consent: Verbal consent for review of hospital discharge: Yes REVIEW OF SYSTEMS Patient/Other Reports: Current patient/caregiver problems or concerns: States she is doing "fine" at home. Up and around with walker, using O2 2L/NC. CV: Denies problems Pulmonary: Denies problems Chills/Sweats/Fever:Denies chills/sweats Denies fever Appetite:Denies problems such as nausea, vomiting, burning, decreased appetite Current diet: Regular Bowel: denies problems Bladder: denies problems Wound (If applicable): N/A Pain:Denies Sleep:Denies problems FUNCTIONAL STATUS: ADL'S: Needs Assistance With:N/A as pt is independent, helps if needed IADL'S: Needs Assistance With:Grocery Shopping and Routine Housework Cognitive and Mental Health: denies problems, alert and oriented x 3, and able to communicate, understand instructions, process information. MEDICATION RECONCILIATION Medications: Reports all medications taken as prescribed. ASSESSMENT Medication Risk Assessment: Patient did not want to go over medication list, states taking all medications as directed. Discussed new medications with patient who verbalized understanding. Going to get them from pharmacy today, states they were not open when she was discharged last night. Did patient fail outpatient treatment? No Discharge instructions available for review? No PLAN Symptom Monitoring Interventions:Member/caregiver education - signs and symptoms to contact PrimaryCare (DO NOT DELETE-Three michelle symptoms patient is to report to PCP) 1. Chest Pain/SOB 2. Fever/chills 3. Any worsening symptoms Brake EngineerOrtho Assistant of Care interventions/Action Plan: 5 - 7 day follow-up with PCP in place - Date: PCP appointment 10/28/2023 Educated on role of ERICA completed with patient/caregiver. Educated patient/caregiver on patient right to have input on ERICA plan of care. Verification of Home Health/DME if indicated: NA Identified Care Gaps: No Care Gaps closed this call: Appointment made or confirmed and Transition of Care follow-up communication Re-evaluation of Plan of Care and progress towards goals achievement: Patient education this visit: Verbal, Confirmed PCP appointment 10/28/2023, discussed reasons to call sooner as above Plan to instructed to call Primary Care Provider with change in symptoms or as needed before next follow-up, discharge needs met, verbalizes understanding and agrees with plan. Shivani Sarkar, KING documented in this encounter Plan of Treatment Upcoming Encounters Date Type Department Care Team (Late st Contact Info) Description 10/28/2023 11:20 AM EST Office Visit [facility] [address] [place] [address] Christiano Felton MD [address] [place] [address] 11/02/2023 10:30 AM EST Office Visit Cardiology, [facility] [address] [facility] [place] [address] [place], DO [address] [facility] [place] [address] 11/09/2023 8:10 AM EST Laboratory Lab Mobile Phlebotomy [facility] [address] [place] [address] [facility], [facility] Mobile Home Draw [address] [place] [address] 11/10/2023 6:00 AM EST Anticoagulation Pharmacy Call Center [phone] [place] [address] [facility] [address] [facility] [place] [address] 11/10/2023 2:00 PM EST Imaging Radiology, [facility] [address] [facility] [place] [address] 11/22/2023 11:00 AM EST Imaging [facility] 2nd Floor Cardiology, [address] [address] 11/24/2023 10:15 AM EST Imaging [facility] 2nd Floor Cardiology, [address] [address] 02/03/2024 12:30 PM EDT Laboratory Laboratory [facility] [place] [address] [place] [id number] Deisy [place] [place] [address] [address] 02/03/2024 1:30 PM EDT Immunization/Injection Hematology/Oncology Treatment, [place] [address] [place] [address] Nurse, Med [address] [place] [address] [address] 03/12/2024 10:00 AM EDT Imaging Radiology [facility] [address]st [facility], [place] [address] [place] [address] 03/20/2024 2:30 PM EDT Office Visit Hematology/Oncology [facility] [address] [place] [phone] Caroline Guerrier CRNP [address] [place] [address] Health Maintenance Due Date Last Done Comments [...] Additional history exists CKD PHOS USE SMARTSET 29580 08/05/202407/16, 05/26/2023, 03/18/2023, Additional history exists CKD HGB USE SMARTSET 09093 10/10/202410/10, 10/10/2023, 08/08/2023, Additional history exists Pneumococcal Vaccine: 65+ Years Completed 08/09/2017, 07/24/2008, 08/12/2003 VITAMIN D LEVEL ONCE IN A LIFETIME-USE SMARTSET# [id number] Completed 11/02/2017, 08/29/2013, 06/20/2012, Additional history exists [...] Not on filedocumented as of this encounter Care Teams Band Cutting Machine Operator Relationship Specialty Start Date End Date Christiano Felton MD [address] [place] [address] PCP - General 12/30/1997 documented as of this encounter
[2023-10-29] MEDS ORDERED: Patient's HEIGHT &/or WEIGHT Needed STA ×2 (00:01→01:15)
[2023-10-29] MEDS ORDERED: Nursing to Pharmacy Communication SCH (04:15)
[2023-10-29] MEDS: PANTOprazole 40 MG TAB PO SCH (05:15)
--- OUTSIDE RECORDS SUMMARY | 2023-10-29 06:12 | External Medical Summary | Summary of Care ---
Author Name Unknown Organization [facility] Address [address] [facility] [place] [address] Phone [phone] Care Team Providers Care Outside Sales Advertising Executive Name Role Phone Christiano Felton MD Primary Care Provider [phone] Reason for Visit * Reason Comments Hospital Follow-Up Needs ju zaman ordered for her Oxygen Encounter Details Date Type Department Care Team (Late st Contact Info) Description 10/28/2023 11:20 AM EST Office Visit [facility] [address] [place] [address] Christiano Felton MD [address] [place] [address] Supplemental oxygen dependent*; Obesity, morbid (more than 100 lbs over ideal weight or BMI > 40) ([facility]); Heart failure, diastolic, due to HTN ([facility]) Allergies Active Allergy Reactions Criticality Noted Date Comments Adhesive Tape 07/22/2017 Penicillins 09/07/1999 Difficulty breathing Rosiglitazone Maleate 12/25/2004 possible relation to DVT, PE's Tramadol Hcl Hives 10/20/2023 documented as of this encounter (statuses as of 10/28/2023) Medications Medication Sig Dispensed Refills Start Date [...] (Jantoven)Indication s:History of pulmonary embolism,Anticoagula tion management encounter,[facility] current use of anticoagulant therapy TAKE ONE-HALF TO ONE TABLET (2.5MG TO 5MG) BY MOUTH ONCE DAILY INSTRUCTED BY COUMADIN CLINIC 90 Tablet 3 03/11/2023 Active Lisinopril 10 MG Oral Tablet (Prinivil)Indication s:Type 2 diabetes mellitus with stage 3b chronic kidney disease, with long-term current use of insulin ([facility]),HTN, goal below 140/90 TAKE 1 TABLET BY MOUTH ONCE DAILY 90 Tablet 2 03/22/2023 Active Accu-Chek Lennie Plus In Vitro Strip (Glucose Blood) USE STRIP TO CHECK GLUCOSE 2 TO 3 TIMES DAILY FOR UNCONTROLLED DIABETES. 300 Strip 3 03/25/2023 Active Pregabalin 150 MG Oral Capsule (Lyrica)Indications: Type 2 diabetes mellitus with diabetic nephropathy, with long-term current use of insulin ([facility]) Take 1 Capsule by mouth in the [...] disease, with long-term current use of insulin ([facility]) TAKE 1 TABLET BY MOUTH TWICE DAILY; morning and before bedtime 180 Tablet 2 07/31/2023 Active Furosemide 40 MG Oral Tablet (Lasix)Indications:H eart failure, diastolic, due to HTN ([facility]),Chronic acquired lymphedema TAKE ONE TABLET BY MOUTH IN THE MORNING AND ONE BEFORE BEDTIME 180 Tablet 1 08/15/2023 Active Insulin Glargine 100 UNIT/ML Subcutaneous Solution (Lantus)Indications: Type 2 diabetes mellitus with hemoglobin A1c goal of less than 8.0% ([facility]) INJECT 36 UNITS UNDER THE SKIN IN [...] as of this encounter (statuses as of 10/28/2023) Active Problems Problem Noted Date Diagnosed Date [...] Obesity Taxonomy ICD-10 update of inactive term [facility] current use of anticoagulant therapy 1 11/25/2008 Overview: ICD-10 update of inactive term Primary localized osteoarthrosis, lower leg 09/15 Diabetic polyneuropathy 07/13/2006 ADVANCE DIRECTIVE INFORMATION 04/16/2005 Overview: No, Advance Directive brochure given to patient at prior appointment. GENERAL OSTEOARTHROSIS 09/22/1999 Lymphedema documented as of this encounter (statuses as of 10/28/2023) Resolved Problems Problem Noted Date Diagnosed Date [...] as of this encounter (statuses as of 10/28/2023) Immunizations Name Administration Dates Next Due Pneumococcal [...] Packs/Day Years Used Date Smoking Tobacco: Never Passive Smoke Exposure: Past Smokeless Tobacco: Never Tobacco Cessation:Counseling Given: Not Answered Alcohol Use Standard Drinks/Week Comments No 0 [...] on file documented as of this encounter Last Filed Vital Signs Vital Sign Reading Time Taken Comments Blood Pressure 110/62 10/28/2023 11:30 AM EST Pulse 57 10/28/2023 11:30 AM EST Temperature 36.1 C (97 F) 10/28/2023 11:30 AM EST Respiratory Rate 18 10/28/2023 11:30 AM EST Oxygen Saturation 98% 10/28/2023 11:30 AM EST Inhaled Oxygen Concentration - - Weight 113.9 kg (251 lb) 10/28/2023 11:30 AM EST Height - - Body Mass Index 43.08 06/29/2023 12:19 PM EDT documented in this encounter Progress Notes * Christiano Felton MD - 10/28/2023 12:25 PM EST Subjective: Gloria Felix is a 83 year old female. Chief Complaint Patient presents with Hospital Follow-Up Needs saline solution ordered for her Oxygen HPI: 83-year-old seen today as a follow-up from [facility] hospital admission 12 7 through 10/26/2023. She was admitted with sepsis and urinary tract infection. Urine grew E coli pansensitive. Ultimately she was discharged on cefdinir. She is on chronic Coumadin having history of pulmonary embolism. Her INR was subtherapeutic so she was discharged on Lovenox and asked to continue her regular Coumadin dosing. She came in today per scheduled appointment. She is accompanied by her she came in on a wheelchair. She admits to generalized weakness. She indicated that she does not feel well today although does not have specific complaints other than the generalized weakness. She has notaware of fever. She has not short of breath. She uses oxygen 2 L day and night. She notes chronic edema in her lower legs but that has not different than usual. She has not bothered with chest pain. Patient Active Problem List Diagnosis Code GENERAL OSTEOARTHROSIS M15.9 ADVANCE DIRECTIVE INFORMATION Lymphedema I89.0 Diabetic polyneuropathy ([facility]) E11.42 Primary localized osteoarthrosis, lower leg M17.10 [facility] current use of anticoagulant therapy Z79.01 Obesity, morbid (more than 100 lbs over ideal weight or BMI > 40) ([facility]) E66.01 PSVT (paroxysmal supraventricular tachycardia) ([facility]) I47.10 DM type 2 causing renal disease ([facility]) E11.29 Vitamin D deficiency E55.9 Type 2 diabetes mellitus with hemoglobin A1c goal of less than 8.0% ([facility]) E11.9 Obstructive sleep apnea of adult G47.33 HTN, goal below 140/90 I10 MEDICATION USE AGREEMENT [id number] Malignant neoplasm of upper-outer quadrant of left female breast ([facility]) C50.412 Senile osteoporosis M81.0 Osteoarthritis of both knees M17.0 History of pulmonary embolism Z86.711 History of nonmelanoma skin cancer Z85.828 Malignant neoplasm of upper-outer quadrant of left breast in female, estrogen receptor positive C50.412, Z17.0 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, T38.6X5A Cholecystitis K81.9 Supplemental oxygen dependent Z99.81 Left anterior fascicular block I44.4 Impaired mobility and ADLs Z74.09, Z78.9 Generalized weakness R53.1 NSVT (nonsustained ventricular tachycardia) ([facility]) I47.29 Atrial flutter ([facility]) I48.92 Heart failure, diastolic, due to HTN ([facility]) I11.0, I50.30 Nonrheumatic aortic valve stenosis I35.0 Current moderate episode of major depressive disorder without prior episode ([facility]) F32.1 Gastroesophageal reflux disease without esophagitis K21.9 Chronic kidney disease, stage 3b ([facility]) N18.32 Type 2 diabetes mellitus with diabetic nephropathy, with long-term current use of insulin ([facility]) E11.21, Z79.4 Action tremor G25.2 Typical atrial flutter ([facility]) I48.3 Current Outpatient Medications Medication Sig Dispense Refill VOLTAREN 1 % TD GEL Apply to affected area(knees) 4 grams up to 4 times daily 100 g 5 Vitamin B-12 1000 MCG Sublingual Tablet Sublingual Take 1 Tab by mouth daily. 90 Tab 1 Vitamin D3 50 MCG (2000 UT) Oral Capsule Take 1 Cap by mouth every other day. 30 Cap 1 Anastrozole 1 MG Oral Tablet (Arimidex) TAKE 1 TABLET BY MOUTH ONCE DAILY 90 Tablet 3 Warfarin Sodium 5 MG Oral Tablet (Jantoven) TAKE ONE-HALF TO ONE TABLET (2.5MG TO 5MG) BY MOUTH ONCE DAILY INSTRUCTED BY COUMADIN CLINIC 90 Tablet 3 Lisinopril 10 MG Oral Tablet (Prinivil) TAKE 1 TABLET BY MOUTH ONCE DAILY 90 Tablet 2 Accu-Chek Lennie Plus In Vitro Strip (Glucose Blood) USE STRIP TO CHECK GLUCOSE 2 TO 3 TIMES DAILY FOR UNCONTROLLED DIABETES. 300 Strip 3 Pregabalin 150 MG Oral Capsule (Lyrica) Take 1 Capsule by mouth in the morning and 1 Capsule beforebedtime. 60 Capsule 11 Pantoprazole Sodium 40 MG Oral Tablet Delayed Release (Protonix) TAKE 1 TABLET BY MOUTH ONCE DAILY BEFORE BREAKFAST 90 Tablet 3 metFORMIN HCl 1000 MG Oral Tablet (Glucophage) TAKE 1 TABLET BY MOUTH TWICE DAILY; morning and before bedtime 180 Tablet 2 Furosemide 40 MG Oral Tablet (Lasix) TAKE ONE TABLET BY MOUTH IN THE MORNING AND ONE BEFORE [id number] Tablet 1 Insulin Glargine 100 UNIT/ML Subcutaneous Solution (Lantus) INJECT 36 UNITS UNDER THE SKIN IN THE MORNING AND 42 UNITS IN THE EVENING 90 mL 0 BD Insulin Syringe U-500 31G X 6MM 0.5 ML (Insulin Syringe/Needle U-500) Use as directed. Use for insulin injections twice daily DxE11.29 200 Each 3 Metoprolol Tartrate 25 MG Oral Tablet (Lopressor) Take 1 Tablet by mouth in the morning and 1 Tablet before bedtime. 90 Tablet 1 Ferrous Sulfate 325 (65 Fe) MG Oral Tablet (Feosol) Take one tab by mouth every day 90 Tablet 3 traMADol HCl 50 MG Oral Tablet (Ultram) Take 1 Tablet by mouth daily as needed for Pain, Moderate. 30 Tablet 0 Cefdinir 300 MG Oral Capsule (Omnicef) Take 1 Capsule by mouth in the morning and 1 Capsule before bedtime. Enoxaparin Sodium 120 MG/0.8ML Injection Solution Prefilled Syringe (Lovenox) Inject 120 mg under the skin in the morning and 120 mg before bedtime. No current facility-administered medications for this visit. Review of patient's allergies indicates: Allergen Reactions Adhesive Tape Penicillins Difficulty breathing Rosiglitazone Maleate possible relation to DVT, PE's Tramadol Hcl Hives Objective: BP 110/62 | Pulse 57 | Temp 36.1 C (97 F) (Infrared ) | Resp 18 | Wt 113.9 kg (251 lb) | SpO2 98% | BMI 43.08 kg/m | BSA 2.27 m Physical Exam: Initially when I saw the patient she did not appear to be in any distress. But afterspinning a few minutes with [place] seemed to become anxious and her respiratory rate was increasing despite pulse ox 98% on room air. CONST: alert, pleasant, no acute distress HEAD: normocephalic, atraumatic r Eyes - PERRLA, EOM'I OROPHARYNX: clear, no swelling or erythema, moist CV: regular rate and rhythm, no murmur CHEST: Diminished breath sounds throughout. clear to auscultation bilaterally, no rales or wheezing ABD: soft, non tender, non distended, no masses or hepatosplenomegaly EXT: 2+ bilateral lower leg edema, no joint swelling or deformities, MENTAL STATUS: no evidence of thought disorder, no delusional thought, no evidence of paranoia, mood-anxious ASSESSMENT/PLAN: Recent discharge from [facility] for sepsis/UTI. Now bothered with overwhelming weakness. The patient not able to walk and certainly not able to navigate 8 steps into her home. I discussed this with our pillowcase cleaner. Little to offer at this time as far as help at home. Patient did not feel comfortable trying to return home. She indicated she wanted transport to [facility] via ambulance. I did notify [facility] ER staff of patient's Um condition and anticipated arrival within the next hour. Supplemental oxygen dependent (Primary) - DURABLE MEDICAL EQUIPMENT-patient Um is interested in humidified oxygen. Will send DME to her supplier Obesity, morbid (more than 100 lbs over ideal weight or BMI > 40) (HCC)-unchanged - DURABLE MEDICAL EQUIPMENT Heart failure, diastolic, due to HTN ([facility])-appears to be stable - DURABLE MEDICAL EQUIPMENT Chrsitiano Felton MD documented in this encounter Nursing Notes * Diane Kebede LPN - 10/28/2023 11:27 AM EST Chief Complaint Patient presents with Hospital Follow-Up Needs saline solution ordered for her Oxygen documented in this encounter Plan of Treatment Upcoming Encounters Date Type Department Care Team (Late st Contact Info) Description 11/02/2023 10:30 AM EST Office Visit Cardiology, [facility] [address] [place] [address] [place], [address] [place] [id number] 11/10/2023 8:30 AM EST Laboratory Lab [place] [facility] [address] [place] [address] [facility], [facility] Mobile Home Draw [address] [place] [address] 11/10/2023 2:00 PM EST Imaging Radiology, [place] [address] [facility] [place] [address] 11/22/2023 11:[address] [facility] 2nd Floor Cardiology, [place] [address] [facility] [place] [address] 11/24/2023 10:[address] [facility] 2nd Floor Cardiology, [place] [address] [facility] [place] [address] 02/03/2024 12:30 PM EDT Laboratory Laboratory [facility] [address] [place] [phone] [place] [address] [facility] [place] [address] 02/03/2024 1:30 PM EDT Immunization/Injecti on Hematology/Oncology Treatment, [place] [address] [place] [address] Nurse, Med [address] [place] [address] 03/12/2024 10:00 AM EDT Imaging Radiology [facility] [facility], [place] [address] [facility] [place] [address] 03/20/2024 2:30 PM EDT Office Visit Hematology/Oncology [facility] [place] [address] [place] [id number] Caroline Guerrier [facility] [address] [facility] [address] Health Maintenance Due Date Last Done Comments Hepatitis B (1 of 3 - Risk 3-dose series) 2002 Depression Screening 08/04/2021 08/04/2020 Diabetic Eye Exam 05/07/2023 05/07/2022, , 04/02/2020, Additional history exists Albumin/Creatinine Ratio 06/02/20232 022, 01/24/2019, 02/08/2018, Additional history exists Diabetic [...] Additional history exists CKD PHOS USE SMARTSET 06871 08/05/202407/16, 05/26/2023, 03/18/2023, Additional history exists CKD HGB USE SMARTSET 75613 10/10/202410/10, 10/10/2023, 08/08/2023, Additional history exists Pneumococcal Vaccine: 65+ Years Completed 08/09/2017, 07/24/2008, 08/12/2003 VITAMIN D LEVEL ONCE IN A LIFETIME-USE SMARTSET# [id number] Completed 11/02/2017, 08/29/2013, 06/20/2012, Additional history exists [...] as of this encounter Visit Diagnoses Diagnosis Supplemental oxygen dependent- Primary Dependence on supplemental oxygen Obesity, morbid (more than 100 lbs over ideal weight or BMI > 40) (HCC) Morbid obesity Heart failure, diastolic, due to HTN (HCC) Unspecified hypertensive heart disease with heart failure documented in this encounter Care Teams Outside Sales Advertising Executive Relationship Specialty Start Date End Date Christiano Felton MD [address] [place] [address] PCP - General 12/30/1997 documented as of this encounter"
[2023-10-29 06:16] LABS: Basophils # (auto) 0.09 K/uL (0.00-0.20); Eosinophils # (auto) 0.18 K/uL (0.00-0.50); Eosinophils % (auto) 1.9 %; Hematocrit (blood only) 31.4 % (37.0-47.0); Immature Granulocytes # (auto) 0.35 K/uL (0.01-0.20); Immature Granulocytes % (auto) 3.7 %; Lymphocytes # (auto) 2.04 K/uL (1.20-3.40); Lymphocytes % (auto) 21.7 %; Mean Corpuscular Hgb Conc 31.8 g/dL (32.0-36.0); Mean Corpuscular Volume 84.9 fL (80.0-100.0); Mean Platelet Volume 11.5 fL (9.4-12.4); Monocytes % (auto) 9.6 %; Neutrophils # (auto) 5.82 K/uL (1.40-6.50); Neutrophils % (auto) 62.1 %; Platelet Count 272 K/uL (130-400); RDW Coefficient of Variation 16.5 % (11.5-14.5); RDW Standard Deviation 50.4 fL (36.4-46.3); White Blood Count 9.38 K/ul (4.8-10.8)
[2023-10-29 06:38] LABS: Albumin Globulin Ratio 1.1 (0.9-2); Albumin Level 3.3 gm/dl (3.4-5.0); BUN Creatinine Ratio 17.7 (10-20); Bilirubin,Total 0.5 mg/dl (0.2-1.0); Calcium 8.6 mg/dl (8.6-10.3); Creatinine Clr Calc Pharmacy 69.7 ml/min; Est GFR (African American) 81.4 ml/min; Est GFR (Non-African American) 70.2 ml/min; Globulin 2.9 gm/dl (2.5-4.0); Potassium 3.5 mmol/L (3.5-5.1); Total Protein 6.2 gm/dl (6.0-8.3)
[2023-10-29 06:48] LABS: INR 1.7 (0.9-1.1); Prothrombin Time 18.1 Seconds (9.0-12.0)
--- NOTE | 2023-10-29 08:22 | Electrocardiogram Report ---
Test Reason : Blood Pressure : / mmHG Vent. Rate : 058 BPM Atrial Rate : 000 BPM P-R Int : 000 ms QRS Dur : 122 ms QT Int : 458 ms P-R-T Axes : 000 -60 127 degrees QTc Int : 449 ms Poor data quality, interpretation may be adversely affected Sinus rhythm Right bundle branch block Left anterior fascicular block Bifascicular block Left ventricular hypertrophy with repolarization abnormality ( R in aVL , [place] ) Cannot rule out Septal infarct , age undetermined Abnormal ECG When compared with ECG of 20-OCT-2023 20:10, Vent. rate has decreased BY 41 BPM Confirmed by Jacky Herman ([id number]) on 10/29/2023 8:21:37 AM Referred By: Confirmed By:Jacky Herman
[2023-10-29] MEDS: LANTUS PER UNIT CHARGE SQ SCH ×2 (08:54→20:35)
[2023-10-29] MEDS: INSULIN ASPART PER UNIT CHARGE SC SCH ×4 (08:58→20:35)
[2023-10-29] MEDS: POTASSIUM CHLORIDE CRTAB 20 MEQ TABCR PO SCH (08:58)
[2023-10-29] MEDS: ANASTROZOLE 1 MG TAB PO SCH (08:58)
[2023-10-29] MEDS: CEFDINIR 300 MG CAP PO SCH ×2 (08:59→20:37)
[2023-10-29] MEDS: FUROSEMIDE 40 MG TAB PO SCH ×2 (08:59→20:36)
[2023-10-29] MEDS: METOPROLOL TARTRATE 25 MG TAB PO SCH ×2 (08:59→20:37)
[2023-10-29] MEDS: CYANOCOBALAMIN (B-12) 500 MCG TABLET PO SCH (08:59)
[2023-10-29] MEDS: ENOXAPARIN INJ 120 MG/0.8 ML SYR SQ SCH ×2 (08:59→20:36)
[2023-10-29] MEDS: FERROUS SULFATE 325 MG TAB PO SCH (08:59)
[2023-10-29] MEDS: PREGABALIN 150 MG CAP PO SCH ×2 (09:11→20:39)
--- NOTE | 2023-10-29 13:52 | Hospitalist Progress Note ---
Date of Service October 29, 2023 Assessment & Plan (1) Generalized weakness: (2) Ambulatory dysfunction: (3) Recent urinary tract infection: (4) Hypokalemia: (5) Hypomagnesemia: (6) Paroxysmal atrial fibrillation: (7) Lymphedema, not elsewhere classified: (8) History of pulmonary embolism: (9) DM type 2 (diabetes mellitus, type 2): Plan: This is an 83-year-old female with past med history significant for type 2 diabetes, diabetic polyneuropathy, obstructive sleep apnea noncompliant with CPAP on 2 L oxygen, paroxysmal SVT, nonsustained ventricular tachycardia, A- flutter, diastolic CHF, hypertension, nonrheumatic aortic valve stenosis, obesity, GERD, CKD stage III, osteoarthritis, history of breast cancer, history of chronic lymphedema, history of PE who presents with generalized weakness and inability to ambulate since discharge. Hospitalized 10 20-10/26 secondary to sepsis and E. coli urinary tract infection. During hospital stay refused physical therapy. Was discharged home and now presents with profound weakness. Generalized weakness Ambulatory dysfunction Recent hospitalization secondary to urinary tract infection and sepsis Continue oral cefdinir and complete course Clinically patient appears much improved, no evidence of acute infection Likely general deconditioning in setting of recent acute illness PT/OT consult- awaiting further evaluation Appreciate CM efforts with placement Hypokalemia Replete as needed Currently wnl Hypomagnesemia Replete as needed Currently wnl History of PE Subtherapeutic INR Continue Coumadin with Lovenox bridge until INR greater than 2 Coumadin clinic follow up T2DM A1c 7.3 on 10/21 Lantus/NovoLog per protocol Chronic, stable Chronic bilateral edema Chronic, stable No evidence of cellulitis Continue home lasix Obstructive sleep apnea Oxygen at bedtime patient noncompliant with CPAP Stable History of chronic diastolic CHF Moderate aortic valve stenosis continue lasix, add KCL supplementation received fluids on admission Monitor for volume overload History of a flutter History of paroxysmal SVT Continue metoprolol and Coumadin Continue Coumadin with Lovenox bridge until INR greater than 2 Hypertension Continue metoprolol Lisinopril on hold, continue to hold with hypotension History of breast cancer S/p left mastectomy On anastrozole Follows with heme/onco Diet: DMII/HH, low sodium DVT prophylaxis: On Coumadin with lovenox bridge currently Full code Dispo: Awaiting pt/ot recs- likely needs rehab Admission and Anticipated Discharge Date Admission Date: October 28, 2023 Subjective Pt seen in the AM. Stated that she went home and she was feeling very weak. Day of discharge pt had requested to wait until after dinner to be discharged as her also came to the hospital to eat. Today she states that she had not been eating as much at home, states when they do eat, they "eat junk". Denied acute concerns otherwise. Review of Systems Review of Systems: All systems reviewed & are unremarkable except as noted in Subjective Physical Exam Physical Exam: General: Alert, oriented. No acute distress Skin: No noted rashes or bruises Psych: Appropriate mood and affect Neuro: difficulty with movements in the chair HEENT: NC/AT CV: RRR Resp: no increased effort of breathing, breath sounds clear Abdomen: Soft, nontender, nondistended. Extremities: ++++ edema in lower extremities bilaterally. Results & Data Results & Data Vital Signs (Past 12 Hours) Vital Signs Temp Pulse Pulse Resp BP Pulse Ox O2 Del Method 10/29/23 12:21 36.5 C 66 16 100/59 L 90 Nasal Cannula 10/29/23 09:29 57 L 10/29/23 07:51 37.0 C 61 14 117/58 L 96 Nasal Cannula 10/29/23 07:30 Nasal Cannula 10/29/23 04:30 37 C 65 20 111/60 96 Room Air 10/29/23 02:12 Nasal Cannula O2 Flow Rate 10/29/23 12:21 2 10/29/23 09:29 10/29/23 07:51 2 10/29/23 07:30 2 10/29/23 04:30 10/29/23 02:12 2
[2023-10-29] MEDS: WARFARIN SOD 5 MG TAB PO SCH (15:13)
[2023-10-29] MEDS ORDERED: WARFARIN SOD 2.5 MG TAB PO ONE (16:00)
[2023-10-30] MEDS: PANTOprazole 40 MG TAB PO SCH (06:14)
[2023-10-30 06:35] LABS: Basophils # (auto) 0.07 K/uL (0.00-0.20); Basophils % (auto) 1.2 %; Eosinophils % (auto) 3.4 %; Hematocrit (blood only) 31.1 % (37.0-47.0); Hemoglobin 9.8 g/dl (12.0-16.0); Immature Granulocytes # (auto) 0.15 K/uL (0.01-0.20); Immature Granulocytes % (auto) 2.6 %; Lymphocytes # (auto) 1.64 K/uL (1.20-3.40); Lymphocytes % (auto) 27.9 %; Mean Corpuscular Hemoglobin 27.1 pg (25.0-34.0); Mean Corpuscular Hgb Conc 31.5 g/dL (32.0-36.0); Mean Corpuscular Volume 85.9 fL (80.0-100.0); Mean Platelet Volume 11.7 fL (9.4-12.4); Monocytes # (auto) 0.65 K/uL (0.11-0.59); Monocytes % (auto) 11.1 %; Neutrophils # (auto) 3.16 K/uL (1.40-6.50); Neutrophils % (auto) 53.8 %; Platelet Count 252 K/uL (130-400); RDW Coefficient of Variation 16.5 % (11.5-14.5); RDW Standard Deviation 52.1 fL (36.4-46.3); Red Blood Count 3.62 M/uL (4.20-5.40); White Blood Count 5.87 K/ul (4.8-10.8)
[2023-10-30 06:58] LABS: Albumin Globulin Ratio 1.3 (0.9-2); Albumin Level 3.4 gm/dl (3.4-5.0); BUN Creatinine Ratio 18.1 (10-20); Bilirubin,Total 0.3 mg/dl (0.2-1.0); Calcium 8.7 mg/dl (8.6-10.3); Creatinine Clr Calc Pharmacy 66.3 ml/min; Est GFR (African American) 76.6 ml/min; Est GFR (Non-African American) 66.1 ml/min; Globulin 2.7 gm/dl (2.5-4.0); Magnesium 1.9 mg/dl (1.7-2.4); Phosphorus 2.8 mg/dl (2.5-4.9); Potassium 3.6 mmol/L (3.5-5.1); Total Protein 6.1 gm/dl (6.0-8.3)
[2023-10-30 07:00] LABS: INR 1.9 (0.9-1.1); Prothrombin Time 19.6 Seconds (9.0-12.0)
[2023-10-30] MEDS: CEFDINIR 300 MG CAP PO SCH ×2 (09:04→20:15)
[2023-10-30] MEDS: FUROSEMIDE 40 MG TAB PO SCH ×2 (09:04→20:15)
[2023-10-30] MEDS: CYANOCOBALAMIN (B-12) 500 MCG TABLET PO SCH (09:05)
[2023-10-30] MEDS: POTASSIUM CHLORIDE CRTAB 20 MEQ TABCR PO SCH (09:05)
[2023-10-30] MEDS: FERROUS SULFATE 325 MG TAB PO SCH (09:06)
[2023-10-30] MEDS: METOPROLOL TARTRATE 25 MG TAB PO SCH ×2 (09:06→20:15)
[2023-10-30] MEDS: ENOXAPARIN INJ 120 MG/0.8 ML SYR SQ SCH ×2 (09:08→20:14)
[2023-10-30] MEDS: CHOLECALCIFEROL 1,000 UNITS 25 MCG TAB PO SCH (09:08)
[2023-10-30] MEDS: INSULIN ASPART PER UNIT CHARGE SC SCH ×4 (09:08→20:13)
[2023-10-30] MEDS: ANASTROZOLE 1 MG TAB PO SCH (09:08)
[2023-10-30] MEDS: PREGABALIN 150 MG CAP PO SCH ×2 (09:11→20:12)
[2023-10-30] MEDS: LANTUS PER UNIT CHARGE SQ SCH ×2 (09:11→20:13)
--- NOTE | 2023-10-30 10:54 | Hospitalist Progress Note ---
Date of Service October 30, 2023 Assessment & Plan (1) Generalized weakness: (2) Ambulatory dysfunction: (3) Recent urinary tract infection: (4) Hypokalemia: (5) Hypomagnesemia: (6) Paroxysmal atrial fibrillation: (7) Lymphedema, not elsewhere classified: (8) History of pulmonary embolism: (9) DM type 2 (diabetes mellitus, type 2): Plan: This is an 83-year-old female with past med history significant for type 2 diabetes, diabetic polyneuropathy, obstructive sleep apnea noncompliant with CPAP on 2 L oxygen, paroxysmal SVT, nonsustained ventricular tachycardia, A- flutter, diastolic CHF, hypertension, nonrheumatic aortic valve stenosis, obesity, GERD, CKD stage III, osteoarthritis, history of breast cancer, history of chronic lymphedema, history of PE who presents with generalized weakness and inability to ambulate since discharge. Hospitalized 10 20-10/26 secondary to sepsis and E. coli urinary tract infection. During hospital stay refused physical therapy. Was discharged home and now admitted with profound weakness. Generalized weakness Ambulatory dysfunction Recent hospitalization secondary to urinary tract infection and sepsis Continue oral cefdinir and complete course Clinically patient appears much improved, no evidence of acute infection Likely general deconditioning in setting of recent acute illness PT/OT consult-recommending rehab Appreciate CM efforts with placement- referrals currently in to [facility] and [facility] Hypokalemia Replete as needed Currently wnl Hypomagnesemia Replete as needed Currently wnl History of PE Subtherapeutic INR Continue Coumadin with Lovenox bridge until INR greater than 2 INR currently 1.9 Coumadin clinic follow up T2DM A1c 7.3 on 10/21 Lantus/NovoLog per protocol Chronic, stable Chronic bilateral edema Chronic, stable No evidence of cellulitis Continue home lasix Obstructive sleep apnea Oxygen at bedtime patient noncompliant with CPAP Stable History of chronic diastolic CHF Moderate aortic valve stenosis continue lasix, add KCL supplementation received fluids on admission Monitor for volume overload History of a flutter History of paroxysmal SVT Continue metoprolol and Coumadin Continue Coumadin with Lovenox bridge until INR greater than 2 Hypertension Continue metoprolol Lisinopril on hold, continue to hold with hypotension History of breast cancer S/p left mastectomy On anastrozole Follows with heme/onco Diet: DMII/HH, low sodium DVT prophylaxis: On Coumadin with lovenox bridge currently Full code Dispo: PT/OT recommending rehab, referrals currently in to [facility] Admission and Anticipated Discharge Date Admission Date: October 28, 2023 Subjective Pt seen in the AM. Was sitting in chair at bedside. States that she was still weak but had worked with PT. States that she was able to walk down the [place] but had to be wheeled back. Denied SOB or chest pain. Review of Systems Review of Systems: All systems reviewed & are unremarkable except as noted in Subjective Physical Exam Physical Exam: General: Alert, oriented. No acute distress Skin: No noted rashes or bruises Psych: Appropriate mood and affect Neuro: difficulty with movements in the chair HEENT: NC/AT CV: RRR Resp: no increased effort of breathing, breath sounds clear Abdomen: Soft, nontender, nondistended. Extremities: ++++ edema in lower extremities bilaterally. Results & Data Results & Data Vital Signs (Past 12 Hours) Vital Signs Temp Pulse Pulse Resp BP Pulse Ox O2 Del Method 10/30/23 10:13 53 L 10/30/23 10:13 Nasal Cannula 10/30/23 08:04 36.7 C 54 L 16 163/78 H 98 Nasal Cannula 10/30/23 03:00 36.7 C 65 20 111/68 95 Nasal Cannula 10/30/23 00:00 69 O2 Flow Rate 10/30/23 10:13 10/30/23 10:13 2 10/30/23 08:04 2 10/30/23 03:00 2 10/30/23 00:00
[2023-10-30] MEDS: WARFARIN SOD 5 MG TAB PO SCH (17:24)
[2023-10-31] MEDS: PANTOprazole 40 MG TAB PO SCH (05:40)
[2023-10-31 06:05] LABS: Basophils # (auto) 0.05 K/uL (0.00-0.20); Basophils % (auto) 0.8 %; Eosinophils # (auto) 0.23 K/uL (0.00-0.50); Eosinophils % (auto) 3.9 %; Hematocrit (blood only) 32.2 % (37.0-47.0); Hemoglobin 9.8 g/dl (12.0-16.0); Immature Granulocytes # (auto) 0.17 K/uL (0.01-0.20); Immature Granulocytes % (auto) 2.9 %; Lymphocytes # (auto) 1.44 K/uL (1.20-3.40); Lymphocytes % (auto) 24.4 %; Mean Corpuscular Hemoglobin 26.8 pg (25.0-34.0); Mean Corpuscular Hgb Conc 30.4 g/dL (32.0-36.0); Mean Platelet Volume 11.4 fL (9.4-12.4); Monocytes # (auto) 0.69 K/uL (0.11-0.59); Monocytes % (auto) 11.7 %; Neutrophils # (auto) 3.32 K/uL (1.40-6.50); Neutrophils % (auto) 56.3 %; Platelet Count 217 K/uL (130-400); RDW Coefficient of Variation 15.9 % (11.5-14.5); RDW Standard Deviation 51.5 fL (36.4-46.3); Red Blood Count 3.66 M/uL (4.20-5.40)
[2023-10-31 06:29] LABS: Albumin Globulin Ratio 1.2 (0.9-2); Albumin Level 3.3 gm/dl (3.4-5.0); BUN Creatinine Ratio 17.7 (10-20); Bilirubin,Total 0.3 mg/dl (0.2-1.0); Calcium 8.1 mg/dl (8.6-10.3); Creatinine Clr Calc Pharmacy 57.4 ml/min; Est GFR (African American) 64.3 ml/min; Est GFR (Non-African American) 55.5 ml/min; Globulin 2.8 gm/dl (2.5-4.0); Magnesium 1.8 mg/dl (1.7-2.4); Phosphorus 3.3 mg/dl (2.5-4.9); Potassium 3.8 mmol/L (3.5-5.1); Total Protein 6.1 gm/dl (6.0-8.3)
[2023-10-31 06:31] LABS: INR 1.8 (0.9-1.1); Prothrombin Time 19.4 Seconds (9.0-12.0)
[2023-10-31] MEDS: METOPROLOL TARTRATE 25 MG TAB PO SCH ×2 (09:06→20:30)
[2023-10-31] MEDS: FERROUS SULFATE 325 MG TAB PO SCH (09:06)
[2023-10-31] MEDS: CALCIUM CARBONATE 1250MG TAB PO SCH ×2 (09:06→20:29)
[2023-10-31] MEDS: CEFDINIR 300 MG CAP PO SCH (09:06)
[2023-10-31] MEDS: FUROSEMIDE 40 MG TAB PO SCH ×2 (09:06→20:30)
[2023-10-31] MEDS: POTASSIUM CHLORIDE CRTAB 20 MEQ TABCR PO SCH (09:06)
[2023-10-31] MEDS: ENOXAPARIN INJ 120 MG/0.8 ML SYR SQ SCH ×2 (09:07→20:31)
[2023-10-31] MEDS: CYANOCOBALAMIN (B-12) 500 MCG TABLET PO SCH (09:07)
[2023-10-31] MEDS: ANASTROZOLE 1 MG TAB PO SCH (09:07)
[2023-10-31] MEDS: INSULIN ASPART PER UNIT CHARGE SC SCH ×4 (09:09→20:28)
[2023-10-31] MEDS: LANTUS PER UNIT CHARGE SQ SCH ×2 (09:09→20:28)
[2023-10-31] MEDS: PREGABALIN 150 MG CAP PO SCH ×2 (09:09→20:29)
--- NOTE | 2023-10-31 10:29 | Hospitalist Progress Note ---
Date of Service October 31, 2023 Assessment & Plan (1) Generalized weakness: (2) Ambulatory dysfunction: (3) Recent urinary tract infection: (4) Hypokalemia: (5) Hypomagnesemia: (6) Paroxysmal atrial fibrillation: (7) Lymphedema, not elsewhere classified: (8) History of pulmonary embolism: (9) DM type 2 (diabetes mellitus, type 2): Plan: This is an 83-year-old female with past med history significant for type 2 diabetes, diabetic polyneuropathy, obstructive sleep apnea noncompliant with CPAP on 2 L oxygen, paroxysmal SVT, nonsustained ventricular tachycardia, A- flutter, diastolic CHF, hypertension, nonrheumatic aortic valve stenosis, obesity, GERD, CKD stage III, osteoarthritis, history of breast cancer, history of chronic lymphedema, history of PE who presents with generalized weakness and inability to ambulate since discharge. Hospitalized 10 20-10/26 secondary to sepsis and E. coli urinary tract infection. During hospital stay refused physical therapy. Was discharged home and now admitted with profound weakness. Generalized weakness Ambulatory dysfunction Recent hospitalization secondary to urinary tract infection and sepsis Continue oral cefdinir and complete course Clinically patient appears much improved, no evidence of acute infection Likely general deconditioning in setting of recent acute illness PT/OT consult-recommending rehab Appreciate CM efforts with placement- referrals currently in to [facility] and [facility] Hypokalemia Replete as needed Currently wnl Hypomagnesemia Replete as needed Currently wnl History of PE Subtherapeutic INR Continue Coumadin with Lovenox bridge until INR greater than 2 INR currently back down to 1.8 One additional warfarin 5mg dose on 10/31, AM INR Coumadin clinic follow up T2DM A1c 7.3 on 10/21 Lantus/NovoLog per protocol Chronic, stable Chronic bilateral edema Chronic, stable No evidence of cellulitis Continue home lasix Obstructive sleep apnea Oxygen at bedtime patient noncompliant with CPAP Stable History of chronic diastolic CHF Moderate aortic valve stenosis continue lasix, add KCL supplementation received fluids on admission Monitor for volume overload History of a flutter History of paroxysmal SVT Continue metoprolol and Coumadin Continue Coumadin with Lovenox bridge until INR greater than 2 Hypertension Continue metoprolol Lisinopril on hold, continue to hold with hypotension History of breast cancer S/p left mastectomy On anastrozole Follows with heme/onco Diet: DMII/HH, low sodium DVT prophylaxis: On Coumadin with lovenox bridge currently Full code Dispo: PT/OT recommending rehab, referrals currently in to [facility] Admission and Anticipated Discharge Date Admission Date: October 28, 2023 Subjective Pt seen in the AM. Was sitting in chair at bedside. Denied SOB or chest pain Had not yet worked with PT/OT for the day Review of Systems Review of Systems: All systems reviewed & are unremarkable except as noted in Subjective Physical Exam Physical Exam: General: Alert, oriented. No acute distress Skin: No noted rashes or bruises Psych: Appropriate mood and affect Neuro: difficulty with movements in the chair HEENT: NC/AT CV: RRR Resp: no increased effort of breathing, breath sounds clear Abdomen: Soft, nontender, nondistended. Extremities: ++++ edema in lower extremities bilaterally. Results & Data Results & Data Vital Signs (Past 12 Hours) Vital Signs Temp Pulse Pulse Pulse Resp BP Pulse Ox 10/31/23 07:51 36.4 C L 64 16 120/56 L 99 10/31/23 07:27 47 L 10/31/23 04:00 36.4 C L 48 L 20 122/74 96 10/31/23 00:00 74 O2 Del Method O2 Flow Rate 10/31/23 07:51 Nasal Cannula 2 10/31/23 07:27 10/31/23 04:00 Nasal Cannula 2 10/31/23 00:00
[2023-10-31] MEDS ORDERED: WARFARIN SOD 5 MG TAB PO ONE (13:15)
[2023-10-31] MEDS ORDERED: WARFARIN SOD 2.5 MG TAB PO SCH (16:00)
[2023-11-01] MEDS: PANTOprazole 40 MG TAB PO SCH (06:05)
[2023-11-01 07:17] LABS: Basophils # (auto) 0.05 K/uL (0.00-0.20); Basophils % (auto) 0.7 %; Eosinophils # (auto) 0.18 K/uL (0.00-0.50); Eosinophils % (auto) 2.7 %; Hematocrit (blood only) 32.1 % (37.0-47.0); Hemoglobin 10.1 g/dl (12.0-16.0); Immature Granulocytes # (auto) 0.14 K/uL (0.01-0.20); Immature Granulocytes % (auto) 2.1 %; Lymphocytes # (auto) 1.54 K/uL (1.20-3.40); Lymphocytes % (auto) 22.7 %; Mean Corpuscular Hemoglobin 26.9 pg (25.0-34.0); Mean Corpuscular Hgb Conc 31.5 g/dL (32.0-36.0); Mean Corpuscular Volume 85.6 fL (80.0-100.0); Mean Platelet Volume 11.7 fL (9.4-12.4); Monocytes # (auto) 0.71 K/uL (0.11-0.59); Monocytes % (auto) 10.5 %; Neutrophils # (auto) 4.17 K/uL (1.40-6.50); Neutrophils % (auto) 61.3 %; Platelet Count 217 K/uL (130-400); RDW Coefficient of Variation 15.9 % (11.5-14.5); RDW Standard Deviation 49.5 fL (36.4-46.3); Red Blood Count 3.75 M/uL (4.20-5.40); White Blood Count 6.79 K/ul (4.8-10.8)
[2023-11-01 07:40] LABS: Albumin Globulin Ratio 1.2 (0.9-2); Albumin Level 3.4 gm/dl (3.4-5.0); BUN Creatinine Ratio 23.5 (10-20); Bilirubin,Total 0.3 mg/dl (0.2-1.0); Calcium 8.7 mg/dl (8.6-10.3); Est GFR (African American) 78.9 ml/min; Est GFR (Non-African American) 68.1 ml/min; Globulin 2.9 gm/dl (2.5-4.0); Magnesium 1.9 mg/dl (1.7-2.4); Phosphorus 3.6 mg/dl (2.5-4.9); Potassium 3.9 mmol/L (3.5-5.1); Total Protein 6.3 gm/dl (6.0-8.3)
[2023-11-01 07:54] LABS: INR 1.9 (0.9-1.1); Prothrombin Time 20.3 Seconds (9.0-12.0)
[2023-11-01] MEDS: CHOLECALCIFEROL 1,000 UNITS 25 MCG TAB PO SCH (09:42)
[2023-11-01] MEDS: PREGABALIN 150 MG CAP PO SCH ×2 (09:42→20:35)
[2023-11-01] MEDS: ENOXAPARIN INJ 120 MG/0.8 ML SYR SQ SCH ×2 (09:43→20:35)
[2023-11-01] MEDS: FUROSEMIDE 40 MG TAB PO SCH ×2 (09:44→20:36)
[2023-11-01] MEDS: METOPROLOL TARTRATE 25 MG TAB PO SCH ×2 (09:44→20:36)
[2023-11-01] MEDS: CYANOCOBALAMIN (B-12) 500 MCG TABLET PO SCH (09:45)
[2023-11-01] MEDS: ANASTROZOLE 1 MG TAB PO SCH (09:45)
[2023-11-01] MEDS: CALCIUM CARBONATE 1250MG TAB PO SCH ×2 (09:45→20:37)
[2023-11-01] MEDS: FERROUS SULFATE 325 MG TAB PO SCH (09:45)
[2023-11-01] MEDS: POTASSIUM CHLORIDE CRTAB 20 MEQ TABCR PO SCH (09:45)
[2023-11-01] MEDS: LANTUS PER UNIT CHARGE SQ SCH ×2 (09:46→20:54)
[2023-11-01] MEDS: INSULIN ASPART PER UNIT CHARGE SC SCH ×4 (09:47→20:53)
--- NOTE | 2023-11-01 16:23 | Hospitalist Progress Note ---
Date of Service November 01, 2023 Assessment & Plan (1) Generalized weakness: (2) Ambulatory dysfunction: (3) Recent urinary tract infection: (4) Hypokalemia: (5) Hypomagnesemia: (6) Paroxysmal atrial fibrillation: (7) Lymphedema, not elsewhere classified: (8) History of pulmonary embolism: (9) DM type 2 (diabetes mellitus, type 2): Plan: This is an 83-year-old female with past med history significant for type 2 diabetes, diabetic polyneuropathy, obstructive sleep apnea noncompliant with CPAP on 2 L oxygen, paroxysmal SVT, nonsustained ventricular tachycardia, A- flutter, diastolic CHF, hypertension, nonrheumatic aortic valve stenosis, obesity, GERD, CKD stage III, osteoarthritis, history of breast cancer, history of chronic lymphedema, history of PE who presents with generalized weakness and inability to ambulate since discharge. Hospitalized 10 20-10/26 secondary to sepsis and E. coli urinary tract infection. During hospital stay refused physical therapy. Was discharged home and now admitted with profound weakness. Generalized weakness Ambulatory dysfunction Recent hospitalization secondary to urinary tract infection and sepsis Continue oral cefdinir and complete course Clinically patient appears much improved, no evidence of acute infection Likely general deconditioning in setting of recent acute illness PT/OT consult-recommending rehab Appreciate CM efforts with placement- referrals currently in, awaiting placement Hypokalemia Replete as needed Currently wnl Hypomagnesemia Replete as needed Currently wnl History of PE Subtherapeutic INR Continue Coumadin with Lovenox bridge until INR greater than 2 INR currently back down to 1.8 One additional warfarin 5mg dose on 10/31, AM INR Coumadin clinic follow up T2DM A1c 7.3 on 10/21 Lantus/NovoLog per protocol Chronic, stable Chronic bilateral edema Chronic, stable No evidence of cellulitis Continue home lasix Obstructive sleep apnea Oxygen at bedtime patient noncompliant with CPAP Stable History of chronic diastolic CHF Moderate aortic valve stenosis continue lasix, add KCL supplementation received fluids on admission Monitor for volume overload History of a flutter History of paroxysmal SVT Continue metoprolol and Coumadin Continue Coumadin with Lovenox bridge until INR greater than 2 Hypertension Continue metoprolol Resumed lisinopril History of breast cancer S/p left mastectomy On anastrozole Follows with heme/onco Diet: DMII/HH, low sodium DVT prophylaxis: On Coumadin with lovenox bridge currently Full code Dispo: PT/OT recommending rehab, awaiting placement Admission and Anticipated Discharge Date Admission Date: October 28, 2023 Subjective Pt seen in the AM. Was sitting in chair at bedside. Denied SOB or chest pain Review of Systems Review of Systems: All systems reviewed & are unremarkable except as noted in Subjective Physical Exam Physical Exam: General: Alert, oriented. No acute distress Skin: No noted rashes or bruises Psych: Appropriate mood and affect Neuro: difficulty with movements in the chair HEENT: NC/AT CV: RRR Resp: no increased effort of breathing, breath sounds clear Abdomen: Soft, nontender, nondistended. Extremities: ++++ edema in lower extremities bilaterally. Results & Data Results & Data Vital Signs (Past 12 Hours) Vital Signs Temp Pulse Pulse Resp BP Pulse Ox O2 Del Method 11/01/23 15:28 36.6 C 70 15 163/65 H 94 Room Air 11/01/23 14:01 56 L 11/01/23 11:38 36.5 C 61 15 164/72 H 97 Nasal Cannula 11/01/23 08:00 Nasal Cannula 11/01/23 07:56 36.6 C 63 17 142/70 H 100 Nasal Cannula 11/01/23 07:00 54 L O2 Flow Rate 11/01/23 15:28 11/01/23 14:01 11/01/23 11:38 2 11/01/23 08:00 2 11/01/23 07:56 2 11/01/23 07:00
[2023-11-01] MEDS: WARFARIN SOD 5 MG TAB PO SCH (17:40)
[2023-11-01] MEDS: lisinopril 10 MG TAB PO SCH (17:44)
[2023-11-02] MEDS: PANTOprazole 40 MG TAB PO SCH (05:49)
[2023-11-02 07:43] LABS: Basophils # (auto) 0.08 K/uL (0.00-0.20); Basophils % (auto) 1.1 %; Eosinophils # (auto) 0.22 K/uL (0.00-0.50); Eosinophils % (auto) 3.1 %; Hematocrit (blood only) 37.1 % (37.0-47.0); Hemoglobin 11.4 g/dl (12.0-16.0); Immature Granulocytes # (auto) 0.16 K/uL (0.01-0.20); Immature Granulocytes % (auto) 2.2 %; Lymphocytes # (auto) 1.58 K/uL (1.20-3.40); Mean Corpuscular Hemoglobin 27.1 pg (25.0-34.0); Mean Corpuscular Hgb Conc 30.7 g/dL (32.0-36.0); Mean Corpuscular Volume 88.1 fL (80.0-100.0); Mean Platelet Volume 11.5 fL (9.4-12.4); Monocytes % (auto) 8.4 %; Neutrophils # (auto) 4.53 K/uL (1.40-6.50); Neutrophils % (auto) 63.2 %; Platelet Count 192 K/uL (130-400); RDW Standard Deviation 51.2 fL (36.4-46.3); Red Blood Count 4.21 M/uL (4.20-5.40); White Blood Count 7.17 K/ul (4.8-10.8)
[2023-11-02 07:57] LABS: BUN Creatinine Ratio 25.4 (10-20); Calcium 9.1 mg/dl (8.6-10.3); Creatinine Clr Calc Pharmacy 44.6 ml/min; Est GFR (African American) 48.1 ml/min; Est GFR (Non-African American) 41.5 ml/min; Magnesium 1.9 mg/dl (1.7-2.4); Phosphorus 4.5 mg/dl (2.5-4.9); Potassium 3.6 mmol/L (3.5-5.1)
[2023-11-02 07:59] LABS: INR 1.9 (0.9-1.1); Prothrombin Time 20.1 Seconds (9.0-12.0)
[2023-11-02] MEDS: PREGABALIN 150 MG CAP PO SCH ×2 (09:32→20:29)
[2023-11-02] MEDS: ENOXAPARIN INJ 120 MG/0.8 ML SYR SQ SCH ×2 (09:32→20:30)
[2023-11-02] MEDS: lisinopril 10 MG TAB PO SCH (09:33)
[2023-11-02] MEDS: POTASSIUM CHLORIDE CRTAB 20 MEQ TABCR PO SCH (09:33)
[2023-11-02] MEDS: FERROUS SULFATE 325 MG TAB PO SCH (09:33)
[2023-11-02] MEDS: METOPROLOL TARTRATE 25 MG TAB PO SCH ×2 (09:34→20:31)
[2023-11-02] MEDS: FUROSEMIDE 40 MG TAB PO SCH ×2 (09:35→20:30)
[2023-11-02] MEDS: CYANOCOBALAMIN (B-12) 500 MCG TABLET PO SCH (09:35)
[2023-11-02] MEDS: ANASTROZOLE 1 MG TAB PO SCH (09:35)
[2023-11-02] MEDS: CALCIUM CARBONATE 1250MG TAB PO SCH ×2 (09:35→20:31)
[2023-11-02] MEDS: INSULIN ASPART PER UNIT CHARGE SC SCH ×4 (09:36→20:29)
[2023-11-02] MEDS: LANTUS PER UNIT CHARGE SQ SCH ×2 (09:36→20:29)
[2023-11-02] MEDS: NSS + 20MEQ KCL 20 MEQ/1,000 ML BAG IV SCH ×2 (10:31→20:31)
--- NOTE | 2023-11-02 14:49 | Hospitalist Progress Note ---
Date of Service November 02, 2023 Assessment & Plan (1) Generalized weakness: (2) Ambulatory dysfunction: (3) Recent urinary tract infection: (4) Hypokalemia: (5) Hypomagnesemia: (6) Paroxysmal atrial fibrillation: (7) Lymphedema, not elsewhere classified: (8) History of pulmonary embolism: (9) DM type 2 (diabetes mellitus, type 2): Plan: This is an 83-year-old female with past med history significant for type 2 diabetes, diabetic polyneuropathy, obstructive sleep apnea noncompliant with CPAP on 2 L oxygen, paroxysmal SVT, nonsustained ventricular tachycardia, A- flutter, diastolic CHF, hypertension, nonrheumatic aortic valve stenosis, obesity, GERD, CKD stage III, osteoarthritis, history of breast cancer, history of chronic lymphedema, history of PE who presents with generalized weakness and inability to ambulate since discharge. Hospitalized 10 20-10/26 secondary to sepsis and E. coli urinary tract infection. During hospital stay refused physical therapy. Was discharged home and now admitted with profound weakness. Generalized weakness Ambulatory dysfunction Recent hospitalization secondary to urinary tract infection and sepsis Continue oral cefdinir and complete course Clinically patient appears much improved, no evidence of acute infection Likely general deconditioning in setting of recent acute illness PT/OT consult-recommending rehab Appreciate CM efforts with placement- referrals currently in, awaiting placement Medically not yet stable to be transferred Acute kidney injury Noted to have increasing BUN and creatinine Has been making out adequate urine Has not been drinking much water/fluid Will give small amount of intravenous fluid and repeat PRP If the PRP shows improvement she will be discharged tomorrow Hypokalemia Replete as needed Currently wnl Hypomagnesemia Replete as needed Currently wnl History of PE Subtherapeutic INR Continue Coumadin with Lovenox bridge until INR greater than 2 INR currently back down to 1.8 One additional warfarin 5mg dose on 18, AM INR Coumadin clinic follow up INR is 1.9 as of today-we will continue the same dose of Coumadin T2DM A1c 7.3 on 10/21 Lantus/NovoLog per protocol Chronic, stable Chronic bilateral edema Chronic, stable No evidence of cellulitis Continue home lasix Advised to keep the legs elevated while in bed and sleeping Ambulate when possible to improve the edema as well Obstructive sleep apnea Oxygen at bedtime patient noncompliant with CPAP Stable History of chronic diastolic CHF Moderate aortic valve stenosis continue lasix, add KCL supplementation received fluids on admission Monitor for volume overload No signs and or symptoms of fluid overload-will get cautious amount of intravenous fluid History of a flutter History of paroxysmal SVT Continue metoprolol and Coumadin Continue Coumadin with Lovenox bridge until INR greater than 2 Hypertension Continue metoprolol Resumed lisinopril History of breast cancer S/p left mastectomy On anastrozole Follows with heme/onco Diet: DMII/HH, low sodium DVT prophylaxis: On Coumadin with lovenox bridge currently Full code Dispo: PT/OT recommending rehab, awaiting placement Likely discharge tomorrow Admission and Anticipated Discharge Date Admission Date: October 28, 2023 Subjective 11/02/2023 The patient was seen and examined in medical telemetry unit She has been generally weak but otherwise feels a lot better Has had physical therapy and did well with it Her BUN and creatinine were noted to be high and she has not been drinking enough fluid Review of Systems Review of Systems: All systems reviewed and are unremarkable except as noted below Physical Exam Physical Exam: Lying in bed comfortably Constitutional: well developed, well nourished and + obese; not ill appearing Eyes: PERRL, conjunctivae normal, anicteric sclerae ENMT: external ear and nose normal, oropharynx normal Neck: trachea midline, no thyromegaly Respiratory: no respiratory distress Auscultation: lungs clear to auscultation bilaterally; no crackles Cardiovascular: Rate/Rhythm: regular rate and regular rhythm; not tachycardic Heart Sounds: normal S1, normal S2 and + murmur (2/6 ESM over precordium) Extremities: + edema (1+ edema bilaterally likely chronic) Gastrointestinal (Abdomen): Inspection/Auscultation: normal bowel sounds; abdomen not distended Percussion/Palpation: abdomen soft; abdomen nontender Musculoskeletal: No acute arthritis involving any of the joint Neurologic: Alert, awake and oriented x 3. No focal sensory and/or motor deficit appreciated Psychiatric: A+Ox3, euthymic affect Lymphatic: no cervical or axillary lymphadenopathy Results & Data Results & Data Vital Signs (Past 12 Hours) Vital Signs Temp Pulse Pulse Pulse Resp BP Pulse Ox 11/02/23 11:33 36.7 C 60 16 137/63 98 11/02/23 08:03 36.4 C L 43 L 17 143/74 H 100 11/02/23 08:00 11/02/23 07:00 52 L 11/02/23 03:57 36.7 C 56 L 16 114/66 99 O2 Del Method O2 Flow Rate 11/02/23 11:33 Nasal Cannula 2 11/02/23 08:03 Nasal Cannula 2 11/02/23 08:00 Nasal Cannula 2 11/02/23 07:00 11/02/23 03:57 Nasal Cannula 2 Laboratory Results Short CBC 11/02/23 Range/Units 06:59 WBC 7.17 (4.8-10.8) K/ul Hgb 11.4 L (12.0-16.0) g/dl Hct 37.1 (37.0-47.0) % Plt Count 192 (130-400) K/uL BMP 11/02/23 06:59 Sodium 136 Potassium 3.6 Chloride 98 Carbon Dioxide 31 BUN 31 H Creatinine 1.22 H D Glucose 149 H Calcium 9.1 Medications Administered Current Inpatient Medications Acetaminophen (Acetaminophen 325 Mg Tab) 650 mg PO Q4H PRN PRN Reason: Pain or Fever Stop: 11/27/23 21:37 Last Admin: 11/02/23 02:10 Dose: 650 mg Al Hydrox/Mg Hydrox/Simethicone (Aluminum/Magnesium Susp 30 Ml Udc) 15 ml PO Q4H PRN PRN Reason: Dyspepsia Stop: 11/27/23 21:37 Anastrozole (Anastrozole 1 Mg Tab) 1 mg PO DAILY TAYO Stop: 11/28/23 08:59 Last Admin: 11/02/23 09:35 Dose: 1 mg Calcium Carbonate (Calcium Carbonate 1250mg Tab) 1,250 mg PO BID TAYO Stop: 11/30/23 08:59 Last Admin: 11/02/23 09:35 Dose: 1,250 mg Cyanocobalamin (Cyanocobalamin (B-12) 500 Mcg Tablet) 1,000 mcg PO DAILY TAYO Stop: 11/28/23 08:59 Last Admin: 11/02/23 09:35 Dose: 1,000 mcg Dextrose (Dextrose 50% 50 Ml Syringe) 25 - 50 ml IV UD PRN; Protocol PRN Reason: Hypoglycemia Protocol Stop: 11/27/23 21:37 Enoxaparin Sodium (Enoxaparin Inj 120 Mg/0.8 Ml Syr) 120 mg SQ Q12H TAYO Stop: 11/28/23 08:59 Last Admin: 11/02/23 09:32 Dose: 120 mg Ferrous Sulfate (Ferrous Sulfate 325 Mg Tab) 325 mg PO DAILY [facility] Stop: 11/28/23 08:59 Last Admin: 11/02/23 09:33 Dose: 325 mg Furosemide (Furosemide 40 Mg Tab) 40 mg PO AMHS [facility] Stop: 11/27/23 21:59 Last Admin: 11/02/23 09:35 Dose: 40 mg Glucagon (Glucagon For Inj 1 Mg Vial) 1 mg SQ UD PRN; Protocol PRN Reason: Hypoglycemia Protocol Stop: 11/27/23 21:37 Glucose (Glucose 10 Tab/Tube) 4 - 8 tab PO UD PRN; Protocol PRN Reason: Hypoglycemia Treatment Stop: 11/27/23 21:37 Glucose (Glucose 40% Gel 15 Gm Tube) 15 - 30 gm PO UD PRN; Protocol PRN Reason: Hypoglycemia Protocol Stop: 11/27/23 21:37 Potassium Chloride/Sodium Chloride (Normal Saline W/20 Meq Kcl) 20 meq in 1,000 mls @ 100 mls/hr IV .Q10H [facility]; Protocol Stop: 11/03/23 16:14 Last Admin: 11/02/23 10:31 Dose: 100 mls/hr Insulin Aspart (Insulin Aspart Per Unit Charge) 0 units SC ACHS [facility] Stop: 11/27/23 21:37 Last Admin: 11/02/23 12:54 Dose: 4 units Insulin Glargine (Lantus Per Unit Charge) 0 units SQ BID [facility] Stop: 11/27/23 21:37 Last Admin: 11/02/23 09:36 Dose: 15 units Lisinopril (Lisinopril 10 Mg Tab) 10 mg PO DAILY [facility] Stop: 12/01/23 16:44 Last Admin: 11/02/23 09:33 Dose: 10 mg Magnesium Hydroxide (Magnesium Hydroxide Susp 30 Ml Udc) 30 ml PO Q12H PRN PRN Reason: Constipation Stop: 11/27/23 21:37 Metoprolol Tartrate (Metoprolol Tartrate 25 Mg Tab) 25 mg PO AMHS [facility] Stop: 11/27/23 21:59 Last Admin: 11/02/23 09:34 Dose: Not Given Miscellaneous (Carbohydrates For Hypoglycemia ) 15 - 30 gm PO UD PRN PRN Reason: Hypoglycemia Protocol Stop: 11/27/23 21:37 Ondansetron HCl (Ondansetron Inj 2 Mg/Ml 2 Ml Vial) 4 mg IV Q6H PRN PRN Reason: Nausea Stop: 11/27/23 21:37 Pantoprazole Sodium (Pantoprazole 40 Mg Tab) 40 mg PO DAILYBB [facility] Stop: 11/28/23 06:29 Last Admin: 11/02/23 05:49 Dose: 40 mg Polyethylene Glycol (Polyethylene (Miralax) 17 Gm Pack) 17 gm PO DAILY PRN PRN Reason: Constipation Stop: 11/27/23 21:37 Potassium Chloride (Potassium Chloride Crtab 20 Meq Tabcr) 20 meq PO QAM [facility] Stop: 11/28/23 08:59 Last Admin: 11/02/23 09:33 Dose: 20 meq Pregabalin (Pregabalin 150 Mg Cap) 150 mg PO BID [facility] Stop: 11/27/23 21:37 Last Admin: 11/02/23 09:32 Dose: 150 mg Tramadol HCl (Tramadol Hcl 50 Mg Tablet) 50 mg PO DAILY PRN PRN Reason: Pain Stop: 11/27/23 21:37 Vitamin D (Cholecalciferol 1,000 Units 25 Mcg Tab) 2,000 units PO Q2D@0900 [facility] Stop: 11/29/23 08:59 Last Admin: 11/01/23 09:42 Dose: 2,000 units Warfarin Sodium (Warfarin Sod 2.5 Mg Tab) 2.5 mg PO Mo@1600 [facility] Stop: 11/30/23 15:59 Last Admin: 10/31/23 17:45 Dose: 2.5 mg Warfarin Sodium (Warfarin Sod 5 Mg Tab) 5 mg PO [id number] [facility] Stop: 11/28/23 15:59 Last Admin: 11/01/23 17:40 Dose: 5 mg
[2023-11-02] MEDS: WARFARIN SOD 5 MG TAB PO SCH (16:47)
[2023-11-03] MEDS: PANTOprazole 40 MG TAB PO SCH (05:55)
[2023-11-03] MEDS: NSS + 20MEQ KCL 20 MEQ/1,000 ML BAG IV SCH (05:55)
[2023-11-03 08:02] LABS: BUN Creatinine Ratio 31.6 (10-20); Calcium 8.6 mg/dl (8.6-10.3); Creatinine Clr Calc Pharmacy 57.7 ml/min; Est GFR (African American) 65.1 ml/min; Est GFR (Non-African American) 56.2 ml/min; Potassium 4.3 mmol/L (3.5-5.1)
[2023-11-03 08:14] LABS: INR 1.8 (0.9-1.1); Prothrombin Time 18.6 Seconds (9.0-12.0)
[2023-11-03] MEDS: INSULIN ASPART PER UNIT CHARGE SC SCH ×2 (08:56→13:24)
[2023-11-03] MEDS: LANTUS PER UNIT CHARGE SQ SCH (08:57)
[2023-11-03] MEDS: FERROUS SULFATE 325 MG TAB PO SCH (09:02)
[2023-11-03] MEDS: ANASTROZOLE 1 MG TAB PO SCH (09:02)
[2023-11-03] MEDS: ENOXAPARIN INJ 120 MG/0.8 ML SYR SQ SCH (09:02)
[2023-11-03] MEDS: CYANOCOBALAMIN (B-12) 500 MCG TABLET PO SCH (09:02)
[2023-11-03] MEDS: CHOLECALCIFEROL 1,000 UNITS 25 MCG TAB PO SCH (09:02)
[2023-11-03] MEDS: FUROSEMIDE 40 MG TAB PO SCH (09:02)
[2023-11-03] MEDS: POTASSIUM CHLORIDE CRTAB 20 MEQ TABCR PO SCH (09:03)
[2023-11-03] MEDS: METOPROLOL TARTRATE 25 MG TAB PO SCH (09:03)
[2023-11-03] MEDS: lisinopril 10 MG TAB PO SCH (09:03)
[2023-11-03] MEDS: PREGABALIN 150 MG CAP PO SCH (09:03)
--- NOTE | 2023-11-03 10:32 | Hospitalist Progress Note ---
Date of Service November 03, 2023 Assessment & Plan (1) Generalized weakness: (2) Ambulatory dysfunction: (3) Recent urinary tract infection: (4) Hypokalemia: (5) Hypomagnesemia: (6) Paroxysmal atrial fibrillation: (7) Lymphedema, not elsewhere classified: (8) History of pulmonary embolism: (9) DM type 2 (diabetes mellitus, type 2): Plan: This is an 83-year-old female with past med history significant for type 2 diabetes, diabetic polyneuropathy, obstructive sleep apnea noncompliant with CPAP on 2 L oxygen, paroxysmal SVT, nonsustained ventricular tachycardia, A- flutter, diastolic CHF, hypertension, nonrheumatic aortic valve stenosis, obesity, GERD, CKD stage III, osteoarthritis, history of breast cancer, history of chronic lymphedema, history of PE who presents with generalized weakness and inability to ambulate since discharge. Hospitalized 10 20-10/26 secondary to sepsis and E. coli urinary tract infection. During hospital stay refused physical therapy. Was discharged home and now admitted with profound weakness. Generalized weakness Ambulatory dysfunction Recent hospitalization secondary to urinary tract infection and sepsis Continue oral cefdinir and complete course Clinically patient appears much improved, no evidence of acute infection Likely general deconditioning in setting of recent acute illness PT/OT consult-recommending rehab Appreciate CM efforts with placement- referrals currently in, awaiting placement Medically not yet stable to be transferred Denies any symptoms and remains medically stable to be transferred to rehab Acute kidney injury Noted to have increasing BUN and creatinine Has been making out adequate urine Has not been drinking much water/fluid Will give small amount of intravenous fluid and repeat PRP If the PRP shows improvement she will be discharged tomorrow Her kidney function has been normalized Was advised to drink about 1800 mL of fluid daily to maintain the kidney function Hypokalemia Replete as needed Currently wnl Hypomagnesemia Replete as needed Currently wnl History of PE Subtherapeutic INR Continue Coumadin with Lovenox bridge until INR greater than 2 INR currently back down to 1.8 One additional warfarin 5mg dose on 10/31, AM INR Coumadin clinic follow up INR is 1.9 as of today-we will continue the same dose of Coumadin INR is 1.8 today Will continue Coumadin at 5 mg daily T2DM A1c 7.3 on 10/21 Lantus/NovoLog per protocol Chronic, stable Chronic bilateral edema Chronic, stable No evidence of cellulitis Continue home lasix Advised to keep the legs elevated while in bed and sleeping Ambulate when possible to improve the edema as well Obstructive sleep apnea Oxygen at bedtime patient noncompliant with CPAP Stable History of chronic diastolic CHF Moderate aortic valve stenosis continue lasix, add KCL supplementation received fluids on admission Monitor for volume overload No signs and or symptoms of fluid overload-will get cautious amount of intravenous fluid No symptoms of fluid overload History of a flutter History of paroxysmal SVT Continue metoprolol and Coumadin Continue Coumadin with Lovenox bridge until INR greater than 2 Will need to have an INR checked in a day or 2 Hypertension Continue metoprolol Resumed lisinopril History of breast cancer S/p left mastectomy On anastrozole Follows with heme/onco Diet: DMII/HH, low sodium DVT prophylaxis: On Coumadin with lovenox bridge currently Full code Dispo: PT/OT recommending rehab, awaiting placement Likely discharge tomorrow She will be discharged this afternoon Admission and Anticipated Discharge Date Admission Date: October 28, 2023 Subjective 11/02/2023 The patient was seen and examined in medical telemetry unit She has been generally weak but otherwise feels a lot better Has had physical therapy and did well with it Her BUN and creatinine were noted to be high and she has not been drinking enough fluid 11/03/2023 The patient was seen and examined in medical telemetry unit She has been feeling much better and her creatinine has been normalized She was advised to drink about 1800ml of fluid daily She will be discharged to rehab this afternoon Review of Systems Review of Systems: All systems reviewed and are unremarkable except as noted below Physical Exam Physical Exam: Lying in bed comfortably Constitutional: well developed, well nourished and + obese; not ill appearing Eyes: PERRL, conjunctivae normal, anicteric sclerae ENMT: external ear and nose normal, oropharynx normal Neck: trachea midline, no thyromegaly Respiratory: no respiratory distress Auscultation: lungs clear to auscultation bilaterally; no crackles Cardiovascular: Rate/Rhythm: regular rate and regular rhythm; not tachycardic Heart Sounds: normal S1, normal S2 and + murmur (2/6 ESM over precordium) Extremities: + edema (1+ edema bilaterally likely chronic) Gastrointestinal (Abdomen): Inspection/Auscultation: normal bowel sounds; abdomen not distended Percussion/Palpation: abdomen soft; abdomen nontender Psychiatric: A+Ox3, euthymic affect Lymphatic: no cervical or axillary lymphadenopathy Results & Data Results & Data Vital Signs (Past 12 Hours) Vital Signs Temp Pulse Pulse Resp BP Pulse Ox O2 Del Method 11/03/23 08:30 36.4 C L 59 L 20 122/54 L 99 Nasal Cannula 11/03/23 07:38 86 11/03/23 07:29 Nasal Cannula 11/03/23 02:59 36.8 C 54 L 18 100/52 L 97 Nasal Cannula 11/03/23 02:42 Nasal Cannula 11/03/23 00:00 63 11/02/23 23:28 36.7 C 57 L 18 98/51 L 99 Nasal Cannula O2 Flow Rate 11/03/23 08:30 2 11/03/23 07:38 11/03/23 07:29 2 11/03/23 02:59 2 11/03/23 02:42 2 11/03/23 00:00 11/02/23 23:28 2 Laboratory Results [facility] 11/03/23 07:05 Sodium 138 Potassium 4.3 Chloride 104 Carbon Dioxide 31 BUN 30 H Creatinine 0.95 Glucose 187 H Calcium 8.6 Medications Administered Current Inpatient Medications Acetaminophen (Acetaminophen 325 Mg Tab) 650 mg PO Q4H PRN PRN Reason: Pain or Fever Stop: 11/27/23 21:37 Last Admin: 11/02/23 02:10 Dose: 650 mg Al Hydrox/Mg Hydrox/Simethicone (Aluminum/Magnesium Susp 30 Ml Udc) 15 ml PO Q4H PRN PRN Reason: Dyspepsia Stop: 11/27/23 21:37 Anastrozole (Anastrozole 1 Mg Tab) 1 mg PO DAILY [facility] Stop: 11/28/23 08:59 Last Admin: 11/03/23 09:02 Dose: 1 mg Calcium Carbonate (Calcium Carbonate 1250mg Tab) 1,250 mg PO BID [facility] Stop: 11/30/23 08:59 Last Admin: 11/02/23 20:31 Dose: 1,250 mg Cyanocobalamin (Cyanocobalamin (B-12) 500 Mcg Tablet) 1,000 mcg PO DAILY [facility] Stop: 11/28/23 08:59 Last Admin: 11/03/23 09:02 Dose: 1,000 mcg Dextrose (Dextrose 50% 50 Ml Syringe) 25 - 50 ml IV UD PRN; Protocol PRN Reason: Hypoglycemia Protocol Stop: 11/27/23 21:37 Enoxaparin Sodium (Enoxaparin Inj 120 Mg/0.8 Ml Syr) 120 mg SQ Q12H [facility] Stop: 11/28/23 08:59 Last Admin: 11/03/23 09:02 Dose: 120 mg Ferrous Sulfate (Ferrous Sulfate 325 Mg Tab) 325 mg PO DAILY [facility] Stop: 11/28/23 08:59 Last Admin: 11/03/23 09:02 Dose: 325 mg Furosemide (Furosemide 40 Mg Tab) 40 mg PO AMHS [facility] Stop: 11/27/23 21:59 Last Admin: 11/03/23 09:02 Dose: 40 mg Glucagon (Glucagon For Inj 1 Mg Vial) 1 mg SQ UD PRN; Protocol PRN Reason: Hypoglycemia Protocol Stop: 11/27/23 21:37 Glucose (Glucose 10 Tab/Tube) 4 - 8 tab PO UD PRN; Protocol PRN Reason: Hypoglycemia Treatment Stop: 11/27/23 21:37 Glucose (Glucose 40% Gel 15 Gm Tube) 15 - 30 gm PO UD PRN; Protocol PRN Reason: Hypoglycemia Protocol Stop: 11/27/23 21:37 Potassium Chloride/Sodium Chloride (Normal Saline W/20 Meq Kcl) 20 meq in 1,000 mls @ 100 mls/hr IV .Q10H [facility]; Protocol Stop: 11/03/23 16:14 Last Admin: 11/03/23 05:55 Dose: 100 mls/hr Insulin Aspart (Insulin Aspart Per Unit Charge) 0 units SC ACHS [facility] Stop: 11/27/23 21:37 Last Admin: 11/03/23 08:56 Dose: 7 units Insulin Glargine (Lantus Per Unit Charge) 0 units SQ BID [facility] Stop: 11/27/23 21:37 Last Admin: 11/03/23 08:57 Dose: 15 units Lisinopril (Lisinopril 10 Mg Tab) 10 mg PO DAILY [facility] Stop: 12/01/23 16:44 Last Admin: 11/03/23 09:03 Dose: 10 mg Magnesium Hydroxide (Magnesium Hydroxide Susp 30 Ml Udc) 30 ml PO Q12H PRN PRN Reason: Constipation Stop: 11/27/23 21:37 Metoprolol Tartrate (Metoprolol Tartrate 25 Mg Tab) 25 mg PO AMHS [facility] Stop: 11/27/23 21:59 Last Admin: 11/03/23 09:03 Dose: 25 mg Miscellaneous (Carbohydrates For Hypoglycemia ) 15 - 30 gm PO UD PRN PRN Reason: Hypoglycemia Protocol Stop: 11/27/23 21:37 Ondansetron HCl (Ondansetron Inj 2 Mg/Ml 2 Ml Vial) 4 mg IV Q6H PRN PRN Reason: Nausea Stop: 11/27/23 21:37 Pantoprazole Sodium (Pantoprazole 40 Mg Tab) 40 mg PO DAILYBB [facility] Stop: 11/28/23 06:29 Last Admin: 11/03/23 05:55 Dose: 40 mg Polyethylene Glycol (Polyethylene (Miralax) 17 Gm Pack) 17 gm PO DAILY PRN PRN Reason: Constipation Stop: 11/27/23 21:37 Potassium Chloride (Potassium Chloride Crtab 20 Meq Tabcr) 20 meq PO QAM [facility] Stop: 11/28/23 08:59 Last Admin: 11/03/23 09:03 Dose: 20 meq Pregabalin (Pregabalin 150 Mg Cap) 150 mg PO BID [facility] Stop: 11/27/23 21:37 Last Admin: 11/03/23 09:03 Dose: 150 mg Tramadol HCl (Tramadol Hcl 50 Mg Tablet) 50 mg PO DAILY PRN PRN Reason: Pain Stop: 11/27/23 21:37 Vitamin D (Cholecalciferol 1,000 Units 25 Mcg Tab) 2,000 units PO Q2D@0900 [facility] Stop: 11/29/23 08:59 Last Admin: 11/03/23 09:02 Dose: 2,000 units Warfarin Sodium (Warfarin Sod 2.5 Mg Tab) 2.5 mg PO Mo@1600 [facility] Stop: 11/30/23 15:59 Last Admin: 10/31/23 17:45 Dose: 2.5 mg Warfarin Sodium (Warfarin Sod 5 Mg Tab) 5 mg PO SuTuWeThFrSa@1600 [facility] Stop: 11/28/23 15:59 Last Admin: 11/02/23 16:47 Dose: 5 mg
[2023-11-03] MEDS: CALCIUM CARBONATE 1250MG TAB PO SCH (10:49)
--- NOTE | 2023-11-03 16:50 | Discharge Summary ---
Date of Service November 03, 2023 Admission HPI Per Admitting Provider This is an 83-year-old female with past med history significant for type 2 diabetes, diabetic polyneuropathy, obstructive sleep apnea noncompliant with CPAP on 2 L oxygen, paroxysmal SVT, nonsustained ventricular tachycardia, A- flutter, diastolic CHF, hypertension, nonrheumatic aortic valve stenosis, obesity, GERD, CKD stage III, osteoarthritis, history of breast cancer, history of chronic lymphedema, history of PE who presents with generalized weakness and inability to ambulate since discharge. Of significance patient was recently admitted 10/20 to 10/26 secondary to severe sepsis in setting of UTI. Urine c ulture grew gram-negative bacilli E. coli and blood culture was negative. She received IV antibiotics and transition to oral cefdinir at discharge. There was also concern about a possible component of bronchitis and therefore she was empirically treated with doxycycline while hospitalized. She does have prior history of PE and therefore is on warfarin. Her INR was subtherapeutic and she was discharged on Lovenox injections along with her Coumadin. She refused physical therapy evaluation while she was hospitalized and wants to be discharged home. Unfortunately since discharge home patient has been doing unwell, generally weak inability to ambulate. She was seen and evaluated by PCP and referred back to ED due to difficulty ambulating in and out of the clinic. She felt she was doing well on day #1 from discharge but continued to get increasingly more weak and even had difficulty getting in and out of the house. She otherwise feels well. She denies any fever, chills, sweats, lig htheadedness, dizziness, chest pain, shortness of breath, nausea, vomit, abdominal pain. Overall her appetite has continued to be poor and she feels she has lost weight. She does have chronic dyspnea on exertion. She also has chronic bilateral lower extremity lymphedema. She wears bilateral Darco shoes due to inability for her feet to fit in normal shoes. In ED patient remained hemodynamically stable. Her CBC revealed H&H 11.3 and 36.1, platelet 317, INR 1.6, hypokalemia 3.4, BUN and creatinine 18/.85, glucose 175, mag low at 1.6. Her urinalysis was negative. She continues to take oral cefdinir for urinary tract infection. Her chest x-ray was negative for any acute abnormality. Admission Exam Per Admitting Provider Physical Exam: Constitutional: WD/WN, obese, female, is chilled, vitals as above, NAD, sitting up in bed, pleasant, conversing easily Head: Normocephalic, Atraumatic Eyes: PERRL, conjunctivae normal, anicteric sclerae ENMT: external ear and nose normal, oropharynx normal Neck: trachea midline, no thyromegaly normal visual inspection Respiratory: normal respiratory effort, lungs clear to auscultation, no wheeze, rales, rhonchi. Normal insp/exp effort, no accessory muscle use Cardiovascular: RRR, no murmur, bilateral lower extremity lymphedema, mild venous stasis change, no erythema, warmth Vessels: no JVD or carotid bruit Chest: normal inspection of chest Abdomen: Obese abdomen, normal bowel sounds, soft, nontender, no hepatosplenomegaly Musculoskeletal: no cyanosis or clubbing, active range of motion x 4 Skin: no rashes, warm and dry normal turgor Neurologic: PERRL, EOMI, accommodation nl, no face palsy, no dysarthria CN's I I-XI intact bilaterally and moves all extremities Psychiatric: A+Ox3, euthymic affect Lymphatic: no cervical or axillary lymphadenopathy : deferred Principal Diagnosis Generalized weakness, ambulatory dysfunction, electrolyte imbalance, history of PE on Coumadin, chronic diastolic CHF, paroxysmal SVT Discharge Exam Lying in bed comfortably Constitutional well developed, well nourished and + obese; not ill appearing Eyes PERRL, conjunctivae normal, anicteric sclerae ENMT external ear and nose normal, oropharynx normal Neck trachea midline, no thyromegaly Respiratory no respiratory distress Auscultation: lungs clear to auscultation bilaterally; no crackles Cardiovascular Rate/Rhythm: regular rate and regular rhythm; not tachycardic Heart Sounds: normal S1, normal S2 and + murmur (2/6 ESM over precordium) Extremities: + edema (1+ edema bilaterally likely chronic) Gastrointestinal (Abdomen) Inspection/Auscultation: normal bowel sounds; abdomen not distended Percussion/Palpation: abdomen soft; abdomen nontender Psychiatric A+Ox3, euthymic affect Lymphatic no cervical or axillary lymphadenopathy Discharge Data Allergies Allergy/AdvReac Type Severity Reaction Status Date / Time Penicillins Allergy Severe SOB Verified 10/28/23 16:05 ,THROAT SHUT,COULDN'T BREATHE rosiglitazone Allergy Severe UNKNOWN-RELATED Verified 10/28/23 16:05 POSS TO DVT/PE PER MEDICAL RECORD tramadol Allergy Unknown UNKNOWN Verified 10/28/23 16:05 adhesive AdvReac Mild IRRITATES Verified 10/28/23 16:05 SKIN Consultations 10/28/23 17:15 ED Decision to Admit Stat Ordered Studies 10/28/23 14:31 CT abd pelvis wo con Stat Hospital Course (1) Generalized weakness: (2) Ambulatory dysfunction: (3) Recent urinary tract infection: (4) Hypokalemia: (5) Hypomagnesemia: (6) Paroxysmal atrial fibrillation: (7) Lymphedema, not elsewhere classified: (8) History of pulmonary embolism: (9) DM type 2 (diabetes mellitus, type 2): This is an 83-year-old female with past med history significant for type 2 d iabetes, diabetic polyneuropathy, obstructive sleep apnea noncompliant with CPAP on 2 L oxygen, paroxysmal SVT, nonsustained ventricular tachycardia, A-flutter, diastolic CHF, hypertension, nonrheumatic aortic valve stenosis, obesity, GERD, CKD stage III, osteoarthritis, history of breast cancer, history of chronic lymphedema, history of PE who presents with generalized weakness and inability to ambulate since discharge. Hospitalized 10 20-10/26 secondary to sepsis and E. coli urinary tract infection. During hospital stay refused physical therapy. Was discharged home and now admitted with profound weakness. Generalized weakness Ambulatory dysfunction Recent hospitalization secondary to urinary tract infection and sepsis Continue oral cefdinir and complete course Clinically patient appears much improved, no evidence of acute infection Likely general deconditioning in setting of recent acute illness PT/OT consult-recommending rehab Appreciate CM efforts with placement- referrals currently in, awaiting placement Medically not yet stable to be transferred Denies any symptoms and remains medically stable to be transferred to rehab Acute kidney injury Noted to have increasing BUN and creatinine Has been making out adequate urine Has not been drinking much water/fluid Will give small amount of intravenous fluid and repeat PRP If the PRP shows improvement she will be discharged tomorrow Her kidney function has been normalized Was advised to drink about 1800 mL of fluid daily to maintain the kidney function Hypokalemia Replete as needed Currently wnl Hypomagnesemia Replete as needed Currently wnl History of PE Subtherapeutic INR Continue Coumadin with Lovenox bridge until INR greater than 2 INR currently back down to 1.8 One additional warfarin 5mg dose on 10/31, AM INR Coumadin clinic follow up INR is 1.9 as of today-we will continue the same dose of Coumadin INR is 1.8 today Will continue Coumadin at 5 mg daily T2DM A1c 7.3 on 10/21 Lantus/NovoLog per protocol Chronic, stable Chronic bilateral edema Chronic, stable No evidence of cellulitis Continue home lasix Advised to keep the legs elevated while in bed and sleeping Ambulate when possible to improve the edema as well Obstructive sleep apnea Oxygen at bedtime patient noncompliant with CPAP Stable History of chronic diastolic CHF Moderate aortic valve stenosis continue lasix, add KCL supplementation received fluids on admission Monitor for volume overload No signs and or symptoms of fluid overload-will get cautious amount of intravenous fluid No symptoms of fluid overload History of a flutter History of paroxysmal SVT Continue metoprolol and Coumadin Continue Coumadin with Lovenox bridge until INR greater than 2 Will need to have an INR checked in a day or 2 Hypertension Continue metoprolol Resumed lisinopril History of breast cancer S/p left mastectomy On anastrozole Follows with heme/onco Diet: DMII/HH, low sodium DVT prophylaxis: On Coumadin with lovenox bridge currently Full code Dispo: PT/OT recommending rehab, awaiting placement Likely discharge tomorrow She will be discharged this afternoon Total Time Total Time Spent Total Time Spent (In Minutes): 40 minutes Discharge Plan Discharge Items Patient Disposition: Transfer Snf Fac Reason For Visit: WEAKNESS Discharge Diagnosis: Generalized weakness, ambulatory dysfunction, electrolyte imbalance, history of PE on Coumadin, chronic diastolic CHF, paroxysmal SVT Condition on Discharge: Fair Activity: As commented below Activity Comment: Continue PT and OT Non-emergency contact: Primary Care Provider Call non-emergency contact if: you have any medication questions and your symptoms worsen Follow-up/Referrals: Christiano Felton MD [Primary Care Provider] - (Please make an appointment with your PCP within 7 days following discharge from the facility) Diet: Carb Consistent or DM2, Heart Healthy and Low Sodium (2gm) Addtl Attending Provider Instructions: Please take precautions to avoid falls Take your medications as advised Try to keep your legs elevated over 1 or 2 pillows while in bed Drink about 1800 mill of fluid a day You need to have Lovenox and Coumadin until the INR is therapeutic which is 2-3 and then stop the Lovenox and continue with Coumadin Your INR is 1.8 as of 11/03/2023 Pending Studies at Discharge: No Stand-Alone Forms: My [facility] Skilled Items Patient informed of condition?: Yes DNR: No Discharge Level of Care: Skilled Communicable Disease: No Discharge Prognosis: Stable Lines: None Urinary Catheter: No Medications and DC Order Prescriptions: Continued furosemide 40 mg tablet 40 mg PO AMHS anastrozole 1 mg tablet 1 mg PO DAILY insulin glargine [Lantus U-100 Insulin] 100 unit/mL solution See Rx Instructions .ROUTE .COMPLEX Rx Instructions: TAKES 36 UNITS QAM, THEN 42 UNITS QPM. cyanocobalamin (vitamin B-12) [Vitamin B-12] 1,000 mcg Tablet 1,000 mcg PO DAILY tramadol 50 mg tablet 50 mg PO DAILY PRN (Reason: Pain) pantoprazole 40 mg tablet,delayed release (DR/EC) 40 mg PO DAILYBB ferrous sulfate 325 mg (65 mg iron) Tablet 325 mg PO DAILY metformin 1,000 mg tablet 1,000 mg PO BID lisinopril 10 mg tablet 10 mg PO DAILY warfarin [Jantoven] 5 mg tablet 2.5 - 5 mg PO DIRECTED Rx Instructions: warfarin 2.5mg po on Tuesday and 5mg po daily on other days metoprolol tartrate 25 mg tablet 25 mg PO AMHS pregabalin 150 mg capsule 150 mg PO BID Rx Instructions: TAKE IN AM & BEFORE HS diclofenac sodium 1 % Gel 4 g TOPICAL QID PRN (Reason: Pain) Rx Instructions: KNEES cholecalciferol (vitamin D3) [Vitamin D3] 50 mcg (2,000 unit) Capsule 50 mcg PO Q OTHER DAY enoxaparin [Lovenox] 120 mg/0.8 mL Syringe 120 mg subcut Q12H Qty: 8 0RF Discontinued cefdinir 300 mg Capsule 300 mg PO BID Qty: 8 0RF Rx Instructions: STARTED 10/26/23 FOR 4 DAYS. Discharge Orders: Discharge Order (Routine); Ordered 11/03/23 Ordered By: Ivana Saha Admission Data Admit Date/Time: 10/28/23 17:29 Attending Provider: Ivana Saha Admit Provider: Todd Pillai Primary Care Provider: Christiano Felton Other Providers: Todd Pillai; Rhiannon Dill at [facility]; [facility] Other Interventions: Discharge Summary Assessment (RN) Last Done: 11/03/23 12:12
== END 2023-11-03 15:02 | DRG 948 ==
LOC: ED 13:05 → 2N 17:29 → INTOOBSV 17:29 → SUATTDRO 17:29 → 2N 21:00

== ENCOUNTER 2024-05-24 17:30 | Inpatient (IN) ==
[2024-05-24 18:08] LABS: Basophils # (auto) 0.08 K/uL (0.00-0.20); Basophils % (auto) 0.9 %; Eosinophils % (auto) 1.1 %; Hematocrit (blood only) 38.8 % (37.0-47.0); Hemoglobin 12.1 g/dl (12.0-16.0); Immature Granulocytes # (auto) 0.27 K/uL (0.01-0.20); Lymphocytes # (auto) 1.41 K/uL (1.20-3.40); Lymphocytes % (auto) 15.7 %; Mean Corpuscular Hemoglobin 26.4 pg (25.0-34.0); Mean Corpuscular Hgb Conc 31.2 g/dL (32.0-36.0); Mean Corpuscular Volume 84.7 fL (80.0-100.0); Mean Platelet Volume 11.3 fL (9.4-12.4); Monocytes # (auto) 0.79 K/uL (0.11-0.59); Monocytes % (auto) 8.8 %; Neutrophils # (auto) 6.34 K/uL (1.40-6.50); Neutrophils % (auto) 70.5 %; Platelet Count 299 K/uL (130-400); RDW Coefficient of Variation 13.8 % (11.5-14.5); RDW Standard Deviation 42.3 fL (36.4-46.3); Red Blood Count 4.58 M/uL (4.20-5.40); White Blood Count 8.99 K/ul (4.8-10.8)
[2024-05-24 18:16] LABS: Albumin Globulin Ratio 1.1 (0.9-2); Albumin Level 3.8 gm/dl (3.4-5.0); BUN Creatinine Ratio 14.5 (10-20); Bilirubin,Total 0.4 mg/dl (0.2-1.0); Calcium 8.9 mg/dl (8.6-10.3); Creatinine Clr Calc Pharmacy 70.6 ml/min; Est GFR (African American) 76.6 ml/min; Est GFR (Non-African American) 66.1 ml/min; Globulin 3.4 gm/dl (2.5-4.0); Magnesium 1.7 mg/dl (1.7-2.4); Phosphorus 1.8 mg/dl (2.5-4.9); Potassium 3.3 mmol/L (3.5-5.1); Total Protein 7.2 gm/dl (6.0-8.3)
[2024-05-24 18:21] LABS: Troponin I High Sensitivity 19.7 pg/ml (0-14)
[2024-05-24 18:31] LABS: Thyroid Stimulating Hormone 3.023 uIu/ml (0.300-4.500)
[2024-05-24 18:33] LABS: Prothrombin Time 20.8 Seconds (9.0-12.0)
--- NOTE | 2024-05-24 18:41 | Emergency Department Note ---
Impression & Plan Acute on chronic diastolic CHF (congestive heart failure), Hypokalemia, Chronic hypoxic respiratory failure, Elevated troponin, Atrial flutter, Hypertensive urgency ED Provider Note NAME: ANABELLA STOREY AGE: 83 SEX: F : 1940 ARRIVES VIA: Ambulance INFORMANT: Patient ED PROVIDER(S): Haseeb Vitale MD CHIEF COMPLAINT: Dizziness, shortness of breath, edema. PLAN: Disposition: Admit MEDICAL DECISION MAKING: The patient is a pleasant 83-year-old woman with a past medical history of diastolic heart failure, chronic hypoxemic respiratory failure, history of PE, atrial fibrillation/atrial flutter on warfarin, hypertension, hyperlipidemia, diabetes, anxiety, GERD who presents to the emergency department via EMS and, accompanied by family for symptoms of dizziness with minimal exertion and associated shortness of breath, palpitations which she reports has been ongoing for "2 years" but has had worsening over the past week and in particular over the past couple of days. She reports associated nausea but denies vomiting. She denies any diarrhea. She denies chest pain. She reports increased fluid retention with increased swelling in her legs. She reports she is taking furosemide. She reports her warfarin was last therapeutic. On evaluation the patient is uncomfortable but no acute distress, afebrile with blood pressure in the 170s/70s and respiratory rate in the 30s and vital signs otherwise stable. She appears hypervolemic. Of note, the patient did have 2 episodes of wide-complex tachycardia in the setting of having baseline bifascicular block with QRS of 134 with suspected atrial flutter. These episodes occurred first when she attempted to image in the bathroom with exertion and the second occurred during an episode of nausea and vomiting. The episodes of tachycardia were self-limited. EKG demonstrates atrial flutter, 86 bpm, no overt acute ischemia. Chest x-ray with pathologic congestion per my preliminary independent interpretation. WBC, H/H and platelets within normal limits. INR is therapeutic at 2.0. Chemistry without metabolic acidosis. Potassium 3.3 with IV repletion initiated. Magnesium 1.7 with IV repletion initiated. Initial high-sensitivity troponin 19.7, nonspecific. BNP is elevated at 177, consistent with patient's hypervolemic appearance. TSH within normal limits. UA with WBCs and bacteria without nitrites. Additional treatment initiated with IV Lasix as well as labetalol for afterload reduction. Case was discussed with Yoly Diaz PAC with Dr. Viktor Diaz [facility], who will evaluate the patient for admission. Further management per admitting team. Triage Nursing notes reviewed and agree them. Prior/external medical records reviewed Vital Signs: reviewed Differential diagnosis: Benign positional vertigo, dehydration, hypovolemia, anemia, tumor, infection, hypoglycemia, electrolyte abnormalities, cardiac sources, intracerebral event, toxicologic, neurologic, as well as other pathologies. ER treatment provided: See below. Diagnostics interpreted by me: ECG: Atrial flutter, 86 bpm, right bundle branch block, left anterior fascicular block, LVH, no overt ST elevation, QTc 521, QRS 134. Cardiac Monitoring: An order for continuous cardiac monitoring was placed and demonstrated Atrial flutter, 86 bpm. Laboratory studies: See below Imaging studies: See below Consultation(s): Yoly Diaz PAC with Dr. Viktor Diaz hospitalist HPI: The patient is a pleasant 83-year-old woman with a past medical history of diastolic heart failure, chronic hypoxemic respiratory failure, history of PE, atrial fibrillation/atrial flutter on warfarin, hypertension, hyperlipidemia, diabetes, anxiety, GERD who presents to the emergency department via EMS and, accompanied by family for symptoms of dizziness with minimal exertion and associated shortness of breath, palpitations which she reports has been ongoing for "2 years" but has had worsening over the past week and in particular over the past couple of days. She reports associated nausea but denies vomiting. She denies any diarrhea. She denies chest pain. She reports increased fluid retention with increased swelling in her legs. She reports she is taking furosemide. She reports her warfarin was last therapeutic. ROS: See above HPI for pertinent positives & negatives. A total of 10 systems reviewed and were otherwise negative. VITALS:See Below PHYSICAL EXAMINATION: GENERAL: Awake, alert, acute on chronically ill-appearing, in no distress, BMI 40.9. HENT: Normocephalic, atraumatic. Oropharynx unremarkable. EYES: Normal conjunctiva. Sclera non-icteric. NECK: Supple. No nuchal rigidity. FROM. No JVD. RESPIRATORY: Diminished breath sounds at the bases and otherwise clear to auscultation. CARDIAC: Regular rate, irregular rhythm. Extremities warm and well perfused. Pulses equal. ABDOMEN: Soft, non-distended. No tenderness to palpation. No rebound or guarding. No masses. MUSCULOSKELETAL: Chest examination reveals no tenderness. The back is symmetrical on inspection without obvious abnormality. There is no CVA tenderness to palpation. No joint edema. LOWER EXTREMITIES: 3+ bilateral lower extremity edema. No discoloration. NEURO: Normal sensorium. No sensory or motor deficits noted. SKIN: No rash or jaundice noted. ED COURSE: Critical Care: I have personally spent greater than 35 minutes of critical care time in the direct management of this patient. This includes bedside care, interpretation of diagnostic studies, and testing, discussion with consultants, patient, and family members, and other required patient management activities. This 35 minutes is in excess of all separately billable procedures. Haseeb Vitale MD Past Med/Surg History Problem List (Updated 05/25/24 @ 02:01 by Haseeb Vitale MD) Hypertensive urgency (Acute) Atrial flutter (Acute) Chronic hypoxic respiratory failure (Acute) Morbid obesity with BMI of 40.0-44.9, adult Hypophosphatemia Acute on chronic diastolic CHF (congestive heart failure) (Acute) Stage III pressure ulcer of buttock (Acute) Hypokalemia (Acute) Hypomagnesemia (Acute) History of sepsis (Acute) Recent urinary tract infection (Acute) Ambulatory dysfunction (Acute) Weakness (Acute) Hypomagnesemia Hypokalemia Recent urinary tract infection Ambulatory dysfunction Generalized weakness Severe sepsis Elevated lactic acid level (Acute) Acute UTI (Acute) Leukocytosis (Acute) Weakness (Acute) SOB (shortness of breath) (Acute) Hypoxemia (Acute) COVID-19 (Acute) COVID-19 Soft tissue mass (Acute) Skin lesion of face (Acute) Secondary lymphedema (Chronic) Hypoxia (Acute) Venous stasis ulcers of both lower extremities (Acute) Hyperkalemia UTI (urinary tract infection) Tremor Sepsis Hypotension Sacral wound Skin excoriation Discharge planning issues CKD (chronic kidney disease), stage III Abnormal urinalysis Shortness of breath Chronic diastolic CHF (congestive heart failure) Acute kidney injury superimposed on CKD Paroxysmal atrial flutter Paroxysmal atrial fibrillation History of breast cancer LEFT Acquired lymphedema (Chronic) Elevated troponin (Acute) DVT prophylaxis Moderate aortic stenosis LUZ MARIA (obstructive sleep apnea) Depression On amiodarone therapy HTN (hypertension) History of paroxysmal supraventricular tachycardia Seen by [facility] cardio 2/4/21, " Although historically she has been diagnosed with "PSVT" it sounds as though she has also had a diagnosis of atrial flutter and on review of telemetry monitoring strips it looks like she has runs of PAT. She also has a twelve-lead electrocardiogram looking like atrial fibrillation. She probably has all of these arrhythmias, but she is asymptomatic with them. Although the heart rate is quite fast she was started on amiodarone and without symptoms it is hard to say what degree of control we have. I do not think extensive monitoring is indicated. I would continue amiodarone for now." History of paroxysmal atrial tachycardia Lymphedema, not elsewhere classified History of pulmonary embolism ? 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 Diabetes mellitus with neuropathy Surgical History History of anesthesia reaction "MY HEART IS EXTRA FAST WHEN I GET ANESTHESIA" History of cholecystectomy History of ERCP History of tooth extraction History of tonsillectomy History of cataract surgery RT/LEFT H/O left mastectomy S/P right rotator cuff repair S/P hysterectomy Family History Grandmother (Paternal) Family history of diabetes mellitus Other Family history non-contributory No family history of adverse response to anesthesia Social History Smoking Status: Never smoker Second Hand Exposure: No; Do You Dip or Chew Tobacco: No; Tobacco Cessation Education Requested by Patient: No Hx Alcohol Use: No Hx Substance Use: No Preferred Language: Micronesian Communication Ability: Effective Visual Impairment: Limited Hearing Ability: Normal Wax Pot Tender Required: No Beliefs That Will Affect Care: None marital status: Current Living Situation: Spouse Current Living Situation Comment: lives at home with spouse current occupational status: retired How many Children do You have: 0 How many Children do You have Comment: Had one son who Other Information That Helps Us Care for You: No Feels Safe at Home: No Is there a partner from a previous relationship who is making you feel unsafe now?: No Any Concerns about Your Family Situation: No Would You Like to Speak to Someone About Your Situation: No Safety Concerns: Feels Safe At This Time Diet: regular Diet Comment: Stated cooks off and on, cousin also cooks for her Assistive Devices: Glasses and Wheelchair Assistive Devices Comment: uses bariatric w/c Allergies Allergies Allergy/AdvReac Type Severity Reaction Status Date / Time Penicillins Allergy Severe SOB Verified 05/23/24 14:02 ,THROAT SHUT,COULDN'T BREATHE rosiglitazone Allergy Severe UNKNOWN-RELATED Verified 05/23/24 14:02 POSS TO DVT/PE PER MEDICAL RECORD tramadol Allergy Unknown UNKNOWN Verified 05/23/24 14:02 adhesive AdvReac Mild IRRITATES Verified 05/23/24 14:02 SKIN Home Meds Home Medications Medication Instructions Recorded Confirmed cholecalciferol (vitamin D3) 50 50 mcg PO Q OTHER DAY 10/20/23 05/24/24 mcg (2,000 unit) capsule (Vitamin D3) cyanocobalamin (vitamin B-12) 1,000 mcg PO DAILY 10/20/23 05/24/24 1,000 mcg tablet (Vitamin B-12) diclofenac sodium 1 % topical gel 4 g topical QID PRN Pain 10/20/23 05/24/24 ferrous sulfate 325 mg (65 mg 325 mg PO DAILY 10/20/23 05/24/24 iron) tablet furosemide 40 mg tablet 40 mg PO AMHS 10/20/23 05/24/24 insulin glargine 100 unit/mL See Rx Instructions .Route .COMPLEX 10/20/23 05/24/24 subcutaneous solution (Lantus U-100 Insulin) metformin 1,000 mg tablet 1,000 mg PO BID 10/20/23 05/24/24 metoprolol tartrate 25 mg tablet 12.5 mg PO AMHS 10/20/23 05/24/24 pantoprazole 40 mg tablet,delayed 40 mg PO DAILYBB 10/20/23 05/24/24 release pregabalin 150 mg capsule 150 mg PO BID 10/20/23 05/24/24 tramadol 50 mg tablet 50 mg PO Q8 PRN Pain 10/20/23 05/24/24 warfarin 5 mg tablet (Jantoven) 2.5 mg PO MO@1600 10/20/23 05/24/24 escitalopram oxalate 10 mg tablet 10 mg PO DAILY 05/24/24 05/24/24 warfarin 5 mg tablet (Jantoven) 5 mg PO SUTUWETHFRSA@1600 05/24/24 05/24/24 Results & Data (ED) Vital Signs Vital Signs - 24 hr 05/24/24 17:47 05/24/24 17:47 05/24/24 17:56 Temperature 36.9 C Temperature Source Oral Pulse Rate 86 Pulse Rate [Right Finger] 106 H Respiratory Rate 32 H 29 H Respiratory Effort / Characteristics Non-Labored Spontaneous Respiratory Depth Normal Blood Pressure 178/77 H Blood Pressure [Right Arm] 141/103 H Blood Pressure Mean 110 Blood Pressure Mean [Right Arm] 115 Pulse Oximetry 95 95 96 Oxygen Delivery Method Room Air Room Air Nasal Cannula Oxygen Flow Rate 2 Sepsis Recent Fever Within 48 Hours No Sepsis New/Unexplained Change in Mental Status N/A Sepsis Action Taken by Nursing No Action Required 05/24/24 18:27 05/24/24 19:17 05/24/24 19:30 Temperature Temperature Source Pulse Rate 93 H 218 H Pulse Rate [Right Finger] 84 Respiratory Rate 31 H Respiratory Effort / Characteristics Non-Labored Spontaneous Respiratory Depth Normal Blood Pressure Blood Pressure [Right Arm] 178/102 H Blood Pressure Mean Blood Pressure Mean [Right Arm] 127 Pulse Oximetry 94 Oxygen Delivery Method Nasal Cannula Oxygen Flow Rate 2 Sepsis Recent Fever Within 48 Hours Sepsis New/Unexplained Change in Mental Status Sepsis Action Taken by Nursing Laboratory Data Attestation: I reviewed the patient's lab results. 05/24/24 17:42 05/24/24 17:42 Lab Results 05/24/24 05/24/24 Range/Units 17:42 19:20 WBC 8.99 (4.8-10.8) K/ul RBC 4.58 (4.20-5.40) M/uL Hgb 12.1 (12.0-16.0) g/dl Hct 38.8 (37.0-47.0) % MCV 84.7 (80.0-100.0) fL MCH 26.4 (25.0-34.0) pg MCHC 31.2 L (32.0-36.0) g/dL RDW Std Deviation 42.3 (36.4-46.3) fL RDW Coeff of [place] 13.8 (11.5-14.5) % Plt Count 299 (130-400) K/uL MPV 11.3 (9.4-12.4) fL Immature Gran % (Auto) 3.0 % Neut % (Auto) 70.5 % Lymph % (Auto) 15.7 % [place] % (Auto) 8.8 % Eos % (Auto) 1.1 % Baso % (Auto) 0.9 % Neut # (Auto) 6.34 (1.40-6.50) K/uL Lymph # (Auto) 1.41 (1.20-3.40) K/uL [place] # (Auto) 0.79 H (0.11-0.59) K/uL Eos # (Auto) 0.10 (0.00-0.50) K/uL Baso # (Auto) 0.08 (0.00-0.20) K/uL Immature Gran # (Auto) 0.27 H (0.01-0.20) K/uL PT 20.8 H (9.0-12.0) Seconds INR 2.0 H (0.9-1.1) Sodium 139 (136-145) mmol/L Potassium 3.3 L (3.5-5.1) mmol/L Chloride 101 (98-107) mmol/L Carbon Dioxide 26 (21-32) mmol/L Anion Gap 12 H (3-11) BUN 12 (6-23) mg/dl Creatinine 0.83 (0.6-1.2) mg/dl Est Cr Clr Drug Dosing 70.6 ml/min Est GFR ( Amer) 76.6 ml/min Est GFR (Non-Af Amer) 66.1 ml/min BUN/Creatinine Ratio 14.5 (10-20) Glucose 156 H (70-99(Fasting)) mg/dl Calcium 8.9 (8.6-10.3) mg/dl Phosphorus 1.8 L (2.5-4.9) mg/dl Magnesium 1.7 (1.7-2.4) mg/dl Total Bilirubin 0.4 (0.2-1.0) mg/dl AST 17 (13-39) U/L ALT 8 (7-52) U/L Alkaline Phosphatase 55 (34-104) U/L Troponin I High Sens 19.7 H (0-14) pg/ml B-Natriuretic Peptide 177 H (0-100) pg/ml Total Protein 7.2 (6.0-8.3) gm/dl Albumin 3.8 (3.4-5.0) gm/dl Globulin 3.4 (2.5-4.0) gm/dl Albumin/Globulin Ratio 1.1 (0.9-2) Lipase 29 (11-82) U/L TSH 3.023 (0.300-4.500) uIu/ml Urine Color Yellow Urine Appearance Clear (Clear) Urine pH >= 9.0 H (4.5-7.5) Ur Specific [place] 1.008 (1.000-1.030) Urine Protein 1+ H (Negative) Urine Glucose (UA) Negative (Negative) Urine Ketones 1+ H (Negative) Urine Blood Negative (Negative) Urine Nitrite Negative (Negative) Urine Bilirubin Negative (Negative) Urine Urobilinogen Negative (Negative) Ur Leukocyte Esterase Trace H (Negative) Urine WBC (Auto) 11-20 H (0-5) /hpf Urine RBC (Auto) 0-2 (0-2) /hpf U Hyaline Cast (Auto) 0-2 (0-2) /lpf U Epithel Cells (Auto) 0-2 (0-2) /hpf Urine Bacteria (Auto) 3+ H (None Seen) Administered Medications Acetaminophen (Acetaminophen 325 Mg Tab) 650 mg PO Q4H PRN PRN Reason: Pain or Fever Stop: 06/23/24 22:12 Last Admin: 05/24/24 22:56 Dose: 650 mg Documented By: RADHA Insulin Aspart (Insulin Aspart Per Unit Charge) 0 units SC ACHS [facility] Stop: 06/23/24 22:12 Last Admin: 05/24/24 22:56 Dose: 2 units Documented By: RADHA Co-signed By: MONA Insulin Glargine (Lantus Per Unit Charge) 0 - 30 units SQ BID TAYO Stop: 06/23/24 22:12 Last Admin: 05/24/24 22:57 Dose: 30 units Documented By: RADHA Co-signed By: MONA Metoprolol Tartrate (Metoprolol Tartrate 25 Mg Tab) 12.5 mg PO AMHS TAYO Stop: 06/23/24 22:12 Last Admin: 05/24/24 22:58 Dose: 12.5 mg Documented By: RADHA Potassium Phosphate (Pot Phosphate Monobasic W/ Sod Tab) 2 tab PO QID TAYO Stop: 06/23/24 22:12 Last Admin: 05/24/24 23:01 Dose: 2 tab Documented By: RADHA Pregabalin (Pregabalin 150 Mg Cap) 150 mg PO BID TAYO Stop: 06/23/24 22:12 Last Admin: 05/24/24 23:01 Dose: 150 mg Documented By: RADHA Discontinued Medications Famotidine (Famotidine 20mg/5ml Iv Push) Confirm Administered Dose 20 mg IV .STK-MED ONE Stop: 05/24/24 18:50 Last Admin: 05/24/24 18:51 Dose: Not Given Documented By: LISA Furosemide (Furosemide 40 Mg/4 Ml Vial) 40 mg IV ONE ONE Stop: 05/24/24 18:39 Last Admin: 05/24/24 19:16 Dose: 40 mg Documented By: KAREN Potassium Chloride (K Cristino / Wtr) 10 meq in 100 mls @ 100 mls/hr IV Q1H TAYO Stop: 05/24/24 20:44 Last Infusion: 05/24/24 21:38 Dose: Infused Documented By: Admin: 05/24/24 20:21 Dose: 100 mls/hr Documented By: Infusion: 05/24/24 20:15 Dose: Infused Documented By: Admin: 05/24/24 19:16 Dose: 100 mls/hr Documented By: KAREN Magnesium Sulfate/Dextrose (Magnesium Sulfate / D5w) 1 gm in 100 mls @ 100 mls/hr IV Q1H TAYO Stop: 05/24/24 20:39 Last Infusion: 05/24/24 21:38 Dose: Infused Documented By: Admin: 05/24/24 20:21 Dose: 100 mls/hr Documented By: Infusion: 05/24/24 20:15 Dose: Infused Documented By: Admin: 05/24/24 19:16 Dose: 100 mls/hr Documented By: ASW Famotidine (Pepcid 20mg Iv Push) 20 mg in 5 mls @ 2.5 mls/min IV NOW STA Stop: 05/24/24 18:51 Last Admin: 05/24/24 18:51 Dose: 2.5 mls/min Documented By: LISA Labetalol HCl (Labetalol Hcl Iv 5 Mg/Ml 20ml) 10 mg IV NOW STA Stop: 05/24/24 19:32 Last Admin: 05/24/24 19:44 Dose: 10 mg Documented By: [email or web address] Co-signed By: MANOLO Ondansetron HCl (Ondansetron Inj 2 Mg/Ml 2 Ml Vial) Confirm Administered Dose 4 mg .ROUTE .STK-MED ONE Stop: 05/24/24 18:50 Last Admin: 05/24/24 18:51 Dose: Not Given Documented By: LISA Ondansetron HCl (Ondansetron Inj 2 Mg/Ml 2 Ml Vial) 4 mg IV NOW STA Stop: 05/24/24 18:51 Last Admin: 05/24/24 18:51 Dose: 4 mg Documented By: LISA Potassium Chloride (Potassium Chloride Crtab 20 Meq Tabcr) 40 meq PO ONE ONE Stop: 05/24/24 22:14 Last Admin: 05/24/24 22:58 Dose: 40 meq Documented By: CR Imaging Data Radiologist's Impression: Chest X-Ray 05/24/24 17:32 XR chest 1V portable HISTORY: Chest pain, nonspecific COMPARISON: Chest 10/28/2023. FINDINGS: No pneumothorax. No pleural effusions. The cardiac silhouette remains enlarged. No focal lung consolidations to suggest a pneumonia. No evidence for pulmonary edema. No acute fractures. Small stable linear scarlike density within the left midlung zone. IMPRESSION: Stable cardiomegaly. Otherwise, no acute process within the chest. ACT 112: Negative or not required by law. Electronically signed by: Norman Otto M.D. 05/24/2024 6:57 PM Discharge Plan Visit Data Chief Complaint: Dizziness Stated Complaint: DIZZY, LIGHTHEADED, PALPITATION, EDEMA ED Provider: Haseeb Vitale Discharge Problem: Acute on chronic diastolic CHF (congestive heart failure), Hypokalemia, Chronic hypoxic respiratory failure, Elevated troponin, Atrial flutter, Hypertensive urgency Patient Disposition: Admitted As Inpatient Discharge Instructions Interventions: ED Discharge Assessment Last Done: 05/24/24 21:18 Discharge Problem: Atrial flutter Qualifiers: Atrial flutter type: unspecified Qualified Code(s): I48.92 - Unspecified atrial flutter
[2024-05-24] MEDS: FAMOTIDINE 20MG IV PUSH 20 MG/5 ML SYR IV STA (18:51)
[2024-05-24] MEDS: ONDANSETRON INJ 2 MG/ML 2 ML VIAL ONE (18:51)
[2024-05-24] MEDS: FAMOTIDINE 20MG/5ML IV PUSH IV ONE (18:51)
[2024-05-24] MEDS: ONDANSETRON INJ 2 MG/ML 2 ML VIAL IV STA (18:51)
--- NOTE | 2024-05-24 18:58 | XRay Report ---
XR chest 1V portable HISTORY: Chest pain, nonspecific COMPARISON: Chest 10/28/2023. FINDINGS: No pneumothorax. No pleural effusions. The cardiac silhouette remains enlarged. No focal prudence ng consolidations to suggest a pneumonia. No evidence for pulmonary edema. No acute fractures. Small stable linear scarlike density within the left midlung zone. IMPRESSION: Stable cardiomegaly. Otherwise, no acute process within the chest. ACT 112: Negative or not required by law. Electronically signed by: Norman Otto M.D. 05/24/2024 6:57 PM
[2024-05-24] MEDS: FUROSEMIDE 40 MG/4 ML VIAL IV ONE (19:16)
[2024-05-24] MEDS: MAGNESIUM SULFATE / D5W 1 GM/100 ML BAG IV SCH (19:16)
[2024-05-24] MEDS: POTASSIUM CHLORIDE / WTR 10 MEQ/100 ML PLCT IV SCH (19:16)
--- NOTE | 2024-05-24 19:43 | History & Physical Report ---
Date of Service May 24, 2024 Assessment & Plan (1) Acute on chronic diastolic CHF (congestive heart failure): (2) Hypokalemia: (3) Hypomagnesemia: (4) Hypophosphatemia: (5) Paroxysmal atrial flutter: (6) Acquired lymphedema: (7) Elevated troponin: (8) Moderate aortic stenosis: (9) LUZ MARIA (obstructive sleep apnea): (10) Morbid obesity with BMI of 40.0-44.9, adult: (11) Chronic hypoxic respiratory failure: Plan This is an 83-year-old female with past med history significant for type 2 diabetes, diabetic polyneuropathy, obstructive sleep apnea noncompliant with CPAP on 2 L oxygen, paroxysmal SVT, nonsustained ventricular tachycardia, A- flutter, diastolic CHF, hypertension, nonrheumatic aortic valve stenosis, obesity, GERD, CKD stage III, osteoarthritis, history of breast cancer, history of chronic lymphedema, history of PE who presents with increased lower extremity swelling. Acute on chronic diastolic CHF Chronic hypoxic resp failure on 2Lchrn B/L Acquired lymphedema Moderate aortic valve stenosis Elevated troponin admit to tele echo from 09/2023 moderate Aortic stenosis, EF 55-59%, small apical WMA possible old CT, compared to prior echo WMA was new received 40mg IV lasix in ED and thus far 1200ml OP continue lasix IV 40mg BID, add KCL supplementation daily weight, strict I and O update echo due to c/o presyncope to eval consult cardiology due to above and concern for tachyarrhythmia lower extremity with open wounds but not irwin cellulitis, afebrile, wbc normal but monitor close cycle troponin for completeness, no acute concern for ACS Pre Syncope Tachy-arrhythmia pt reports, "spells," where she gets nervousness in her chest and feels like she could pass out, she reports a few seconds of passing out in ED, no irwin chest pain in ED when pt was exerting in bathroom she became symptomatic of these, "spells" and was her HR was in the 200s, concern for flutter vs Monomorphic Vtach @ 1813 and 1930 consult cardiology, monitor on tele and replete lytes History of a flutter History of paroxysmal SVT PAF Continue metoprolol and Coumadin as above Hypokalemia Replace, keep above 4 secondary to history of arrhythmias repeat in a.m. Hypomagnesemia Replace, keep above 2.0 secondary to history of arrhythmias repeat in a.m. Hypophosphatemia place on oral repletion due to volume overload repeat in a.m. History of PE Continue warfarin T2DM A1c 6.7 Mar 27 2024 Lantus/novolog per protocol, hold metformin Obstructive sleep apnea Oxygen at bedtime, patient noncompliant with CPAP Hypertension BP elevated in ED; however small cuff noted to be on pt, large cuff placed and SBP in 140s received IV labetolol in ED continue metoprolol, previously on lisinopril but this was discontinued History of breast cancer S/p left mastectomy previous on anastrazole Sacral wound/Bilateral lower ext wounds consult wound nurse continue sacral treatment per wound center Morbid obesity, BMI 43.2 encourage diet/lifestyle changes DVT prophylaxis On Coumadin Disposition: admit to PCU Due to concern for tachyarrhythmia and pre syncope and CHF Full code PCP: Jose Francisco Pt was seen and examined in collaboration with Dr. Hoang, please see addendum A total of 76 was spent coordinating, documenting, and providing care for this patient excluding time spent in the performance of separately billed services. This included personally viewing all current laboratories and imaging studies, medication reconciliation, outpatient chart review, and discussion with specialists. History of Present Illness Chief Complaint: Lower extremity swelling Primary Care Provider: Christiano Felton MD This is an 83-year-old female with past med history significant for type 2 diabetes, diabetic polyneuropathy, obstructive sleep apnea noncompliant with CPAP on 2 L oxygen, paroxysmal SVT, nonsustained ventricular tachycardia, A- flutter, diastolic CHF, hypertension, nonrheumatic aortic valve stenosis, obesity, GERD, CKD stage III, osteoarthritis, history of breast cancer, history of chronic lymphedema, history of PE who presents with increased lower extremity swelling and multiple other complaints. Her and other family member are at bedside. Patient states she is been having off-and-on, "episodes," in which she feels like she is going to, "blackout." These episodes have been getting more frequent and today she had a series of episodes that is never happened before. She describes episodes where she can be sitting or exerting yourself and she gets a, "nervousness," sensation in the center of her chest and feels that she is in a pass out. It last for several seconds and goes away on its own. Due to her symptoms being worse today she opted to call EMS for further evaluation. She also reports over the last 4 to 6 weeks being unable to cook and having to heavily rely on a TV dinners due to her chronic knee pain. She has been compliant with her Lasix, but feels that this is contributed to a 10 to 15 pound weight gain as well as increase in lower extremity swelling. She has bilateral compression boots at home which have been keeping her lower extremities much less swollen until recently. She has been developing blisters that have been opening on her legs. She does feel nauseated but has not vomited. She denies fever, chills, sweats, chest pain, hemoptysis, URI symptoms, vomiting, abdominal pain, dysuria, increased urgency or frequency with urination, melena or hematochezia. In ED patient remained hemodynamically stable although she was hypertensive. She remained on her chronic 2 L of oxygen. She reports after receiving IV Lasix she feels much better and they had to, "empty her bag twice." Per ED provider Pt has episode on tele when in the bathroom that appeared as a wide complex tachycardia flutter vs vtach with rates in the 200s that resolved with rest. Her magnesium and potassium are being replaced in ED. Outpt records were reviewed. Allergies Allergy/AdvReac Type Severity Reaction Status Date / Time Penicillins Allergy Severe SOB Verified 05/23/24 14:02 ,THROAT SHUT,COULDN'T BREATHE rosiglitazone Allergy Severe UNKNOWN-RELATED Verified 05/23/24 14:02 POSS TO DVT/PE PER MEDICAL RECORD tramadol Allergy Unknown UNKNOWN Verified 05/23/24 14:02 adhesive AdvReac Mild IRRITATES Verified 05/23/24 14:02 SKIN Home Medications Medication Instructions Recorded Confirmed Type cholecalciferol (vitamin D3) 50 50 mcg PO Q OTHER DAY 10/20/23 05/24/24 History mcg (2,000 unit) capsule (Vitamin D3) cyanocobalamin (vitamin B-12) 1,000 mcg PO DAILY 10/20/23 05/24/24 History 1,000 mcg tablet (Vitamin B-12) diclofenac sodium 1 % topical gel 4 g topical QID PRN Pain 10/20/23 05/24/24 History ferrous sulfate 325 mg (65 mg 325 mg PO DAILY 10/20/23 05/24/24 History iron) tablet furosemide 40 mg tablet 40 mg PO AMHS 10/20/23 05/24/24 History insulin glargine 100 unit/mL See Rx Instructions .Route .COMPLEX 10/20/2305/14 History subcutaneous solution (Lantus U-100 Insulin) metformin 1,000 mg tablet 1,000 mg PO BID 10/20/23 05/24/24 History metoprolol tartrate 25 mg tablet 12.5 mg PO AMHS 10/20/23 05/24/24 History pantoprazole 40 mg tablet,delayed 40 mg PO DAILYBB 10/20/23 05/24/24 History release pregabalin 150 mg capsule 150 mg PO BID 10/20/23 05/24/24 History tramadol 50 mg tablet 50 mg PO Q8 PRN Pain 10/20/23 05/24/24 History warfarin 5 mg tablet (Jantoven) 2.5 mg PO MO@1600 10/20/23 05/24/24 History escitalopram oxalate 10 mg tablet 10 mg PO DAILY 05/24/24 05/24/24 History warfarin 5 mg tablet (Jantoven) 5 mg PO SUTUWETHFRSA@1600 05/24/24 05/24/24 History Past Med/Surg History Problem List (Updated 05/26/24 @ 09:37 by Rox Larkin PA-C) Bifascicular block Atrial tachycardia, paroxysmal CAD (coronary artery disease) Wide-complex tachycardia Aortic stenosis Pre-syncope Hypertensive urgency (Acute) Atrial flutter (Acute) Chronic hypoxic respiratory failure (Acute) Morbid obesity with BMI of 40.0-44.9, adult Hypophosphatemia Acute on chronic diastolic CHF (congestive heart failure) (Acute) Stage III pressure ulcer of buttock (Acute) Hypokalemia (Acute) Hypomagnesemia (Acute) History of sepsis (Acute) Recent urinary tract infection (Acute) Ambulatory dysfunction (Acute) Weakness (Acute) Hypomagnesemia Hypokalemia Recent urinary tract infection Ambulatory dysfunction Generalized weakness Severe sepsis Elevated lactic acid level (Acute) Acute UTI (Acute) Leukocytosis (Acute) Weakness (Acute) SOB (shortness of breath) (Acute) Hypoxemia (Acute) COVID-19 (Acute) COVID-19 Soft tissue mass (Acute) Skin lesion of face (Acute) Secondary lymphedema (Chronic) Hypoxia (Acute) Venous stasis ulcers of both lower extremities (Acute) Hyperkalemia UTI (urinary tract infection) Tremor Sepsis Hypotension Sacral wound Skin excoriation Discharge planning issues CKD (chronic kidney disease), stage III Abnormal urinalysis Shortness of breath Chronic diastolic CHF (congestive heart failure) Acute kidney injury superimposed on CKD Paroxysmal atrial flutter Paroxysmal atrial fibrillation History of breast cancer LEFT Acquired lymphedema (Chronic) Elevated troponin (Acute) DVT prophylaxis Moderate aortic stenosis LUZ MARIA (obstructive sleep apnea) Depression On amiodarone therapy HTN (hypertension) History of paroxysmal supraventricular tachycardia Seen by [facility] [place] cardio 12/18/20, " Although historically she has been diagnosed with "PSVT" it sounds as though she has also had a diagnosis of atrial flutter and on review of telemetry monitoring strips it looks like she has runs of PAT. She also has a twelve-lead electrocardiogram looking like atrial fibrillation. She probably has all of these arrhythmias, but she is asymptomatic with them. Although the heart rate is quite fast she was started on amiodarone and without symptoms it is hard to say what degree of control we have. I do not think extensive monitoring is indicated. I would continue amiodarone for now." History of paroxysmal atrial tachycardia Lymphedema, not elsewhere classified History of pulmonary embolism ? 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 Diabetes mellitus with neuropathy Surgical History History of anesthesia reaction "MY HEART IS EXTRA FAST WHEN I GET ANESTHESIA" History of cholecystectomy History of ERCP History of tooth extraction History of tonsillectomy History of cataract surgery RT/LEFT H/O left mastectomy S/P right rotator cuff repair S/P hysterectomy Family History Grandmother (Paternal) Family history of diabetes mellitus Other Family history non-contributory No family history of adverse response to anesthesia Social History Smoking Status: Never smoker Second Hand Exposure: No; Do You Dip or Chew Tobacco: No; Tobacco Cessation Education Requested by Patient: No Hx Alcohol Use: No Hx Substance Use: No Preferred Language: Belarusian Communication Ability: Effective Visual Impairment: Limited Hearing Ability: Normal Ditch Tender Required: No Beliefs That Will Affect Care: None marital status: Current Living Situation: Spouse Current Living Situation Comment: lives at home with spouse current occupational status: retired How many Children do You have: 0 How many Children do You have Comment: Had one son who Other Information That Helps Us Care for You: No Feels Safe at Home: No Is there a partner from a previous relationship who is making you feel unsafe now?: No Any Concerns about Your Family Situation: No Would You Like to Speak to Someone About Your Situation: No Safety Concerns: Feels Safe At This Time Diet: regular Diet Comment: Stated cooks off and on, cousin also cooks for her Assistive Devices: Walker Assistive Devices Comment: uses bariatric w/c Review of Systems Review of Systems: All systems reviewed & are unremarkable except as noted in HPI & below Physical Exam Physical Exam: Constitutional: WD/WN, morbidly obese, F vitals as above, NAD, sitting up in bed, pleasant, conversing easily Head: Normocephalic, Atraumatic Eyes: PERRL, conjunctivae normal, anicteric sclerae ENMT: external ear and nose normal, oropharynx normal Neck: trachea midline, no thyromegaly normal visual inspection Respiratory: normal respiratory effort, lungs clear to auscultation, no wheeze, rales, rhonchi. Normal insp/exp effort, no accessory muscle use on 2L of O2 Cardiovascular: RRR, 1/6 EDIN RUSB, b/l severe lymphedema with b/l open blisters, no warmth or irwin redness concerning for cellulitis Vessels: no JVD or carotid bruit Chest: normal inspection of chest Abdomen: normal bowel sounds, soft, nontender, no hepatosplenomegaly Musculoskeletal: no cyanosis or clubbing, AROM x 4 Skin: no rashes, warm and dry normal turgor Neurologic: no face palsy, no dysarthria CN's II-XI intact bilaterally and moves all extremities Psychiatric: A+Ox3, euthymic affect : schultz cath draining yellow urine Results & Data Results & Data Vital Signs (Past 12 Hours) Vital Signs Temp Pulse Pulse Resp BP BP Pulse Ox 05/24/24 19:17 84 31 H 178/102 H 94 05/24/24 18:27 93 H 05/24/24 17:56 106 H 29 H 141/103 H 96 05/24/24 17:47 95 05/24/24 17:47 36.9 C 86 32 H 178/77 H 95 O2 Del Method O2 Flow Rate 05/24/24 19:17 Nasal Cannula 2 05/24/24 18:27 05/24/24 17:56 Nasal Cannula 2 05/24/24 17:47 Room Air 05/24/24 17:47 Room Air Laboratory Results I have independently reviewed and interpreted patient's admitting labs including CBC, CMP, PTT, PT/INR, mag, BNP, lipase, tsh, phos and troponin. Diagnostic Findings Chest X-Ray 05/24/24 17:32 XR chest 1V portable HISTORY: Chest pain, nonspecific COMPARISON: Chest 10/28/2023. FINDINGS: No pneumothorax. No pleural effusions. The cardiac silhouette remains enlarged. No focal lung consolidations to suggest a pneumonia. No evidence for pulmonary edema. No acute fractures. Small stable linear scarlike density within the left midlung zone. IMPRESSION: Stable cardiomegaly. Otherwise, no acute process within the chest. ACT 112: Negative or not required by law. Electronically signed by: Norman Otto M.D. 05/24/2024 6:57 PM Medications Administered Medication List Potassium Chloride (K Cristino / Wtr) 10 meq in 100 mls @ 100 mls/hr IV Q1H TAYO Stop: 05/24/24 20:44 Last Admin: 05/24/24 19:16 Dose: 100 mls/hr Documented By: ASW Magnesium Sulfate/Dextrose (Magnesium Sulfate / D5w) 1 gm in 100 mls @ 100 mls/hr IV Q1H TAYO Stop: 05/24/24 20:39 Last Admin: 05/24/24 19:16 Dose: 100 mls/hr Documented By: NIKKYW Discontinued Medications Famotidine (Famotidine 20mg/5ml Iv Push) Confirm Administered Dose 20 mg IV .STK-MED ONE Stop: 05/24/24 18:50 Last Admin: 05/24/24 18:51 Dose: Not Given Documented By: ARS Furosemide (Furosemide 40 Mg/4 Ml Vial) 40 mg IV ONE ONE Stop: 05/24/24 18:39 Last Admin: 05/24/24 19:16 Dose: 40 mg Documented By: NIKKYW Famotidine (Pepcid 20mg Iv Push) 20 mg in 5 mls @ 2.5 mls/min IV NOW STA Stop: 05/24/24 18:51 Last Admin: 05/24/24 18:51 Dose: 2.5 mls/min Documented By: LISA Ondansetron HCl (Ondansetron Inj 2 Mg/Ml 2 Ml Vial) Confirm Administered Dose 4 mg .ROUTE .STK-MED ONE Stop: 05/24/24 18:50 Last Admin: 05/24/24 18:51 Dose: Not Given Documented By: LISA Ondansetron HCl (Ondansetron Inj 2 Mg/Ml 2 Ml Vial) 4 mg IV NOW STA Stop: 05/24/24 18:51 Last Admin: 05/24/24 18:51 Dose: 4 mg Documented By: LISA ECG Additional Comments: I have independently reviewed and interpreted patient's admitting EKG which revealed: 86 BPM RBBB LAFB Bifasicular block COVID-19 Results Results COVID-19 Adm Lab Results: RBC 4.26 M/uL (4.20-5.40) 05/28/24 WBC 8.84 K/ul (4.8-10.8) 05/28/24 Hgb 11.3 g/dl (12.0-16.0) L 05/28/24 Hct 37.5 % (37.0-47.0) 05/28/24 Plt Count 265 K/uL (130-400) 05/28/24 Neutrophils (%) (Auto) 62.1 % 05/28/24 Lymphocytes (%) (Auto) 17.8 % 05/28/24 Monocytes # (Auto) 0.91 K/uL (0.11-0.59) H 05/28/24 Eosinophils # (Auto) 0.36 K/uL (0.00-0.50) 05/28/24 Immature Granulocyte % (Auto) 4.5 % 05/28/24 Neutrophils # (Auto) 5.49 K/uL (1.40-6.50) 05/28/24 Lymphocytes # (Auto) 1.57 K/uL (1.20-3.40) 05/28/24 Monocytes # (Auto) 0.91 K/uL (0.11-0.59) H 05/28/24 Eosinophils # (Auto) 0.36 K/uL (0.00-0.50) 05/28/24 Basophils # (Auto) 0.11 K/uL (0.00-0.20) 05/28/24 Immature Granulocyte # (Auto) 0.40 K/uL (0.01-0.20) H 05/28 Na 136 mmol/L (136-145) 05/28/24 K 4.4 mmol/L (3.5-5.1) 05/28/24 Cl 99 mmol/L (98-107) 05/28/24 CO2 31 mmol/L (21-32) 05/28/24 Anion Gap 6 (3-11) 05/28/24 BUN 27 mg/dl (6-23) H 05/28/24 Creatinine 1.00 mg/dl (0.6-1.2) 05/28/24 BUN/Creatinine Ratio 27.0 (10-20) H 05/28/24 Glucose Level 175 mg/dl (70-99(Fasting)) H 05/28/24 Ca 8.8 mg/dl (8.6-10.3) 05/28/24 Phosphorus Level 4.5 mg/dl (2.5-4.9) 05/28/24 Total Bilirubin 0.4 mg/dl (0.2-1.0) 05/25/24 AST/SGOT 13 U/L (13-39) 05/25/24 ALT/SGPT 6 U/L (7-52) L 05/25/24 Alkaline Phosphatase 45 U/L (34-104) 05/25/24 Total Protein 6.1 gm/dl (6.0-8.3) 05/25/24 Albumin 3.2 gm/dl (3.4-5.0) L 05/25/24 Globulin 2.9 gm/dl (2.5-4.0) 05/25/24 Albumin/Globulin Ratio 1.1 (0.9-2) 05/25/24 Ferritin 13.2 ng/ml (8-388) 05/26/24 INR 1.9 (0.9-1.1) H 05/28/24 Chest X-Ray 05/24/24 Code Status & VTE Plan Code Status FULL CODE VTE Prophylaxis Plan VTE Prophylaxis will be ordered: No Reason for no VTE drug order: Treatment not indicated Supervising Physician Co-Signing Physician Notes Attending Addendum: Case reviewed with the advanced practitioner. I have personally performed a history and physical examination on the patient. I have reviewed the advanced practitioner's documentation on the date of service referenced in note, and I agree with, and take responsibility for the plan of care. please refer to her notes for full details patient seen and examined, records reviewed by myself as well Ralf Hoang MD
[2024-05-24] MEDS: LABETALOL HCL IV 5 MG/ML 20ML IV STA (19:44)
[2024-05-24 20:00] LABS: Appearance Urine Clear (Clear); Bacteria Urine Automated 3+ (None Seen); Bilirubin Urine Negative (Negative); Blood Urine Negative (Negative); Cast Urine Automated 0-2 /lpf (0-2); Color Urine Yellow; Epithelial Cell Urine Auto 0-2 /hpf (0-2); Glucose Urine UA Negative (Negative); Ketones Urine 1+ (Negative); Leukocyte Esterase Urine Trace (Negative); Nitrite Urine Negative (Negative); Protein Urine 1+ (Negative); RBC Urine Automated 0-2 /hpf (0-2); Specific Gravity Urine 1.008 (1.000-1.030); Urobilinogen Urine Negative (Negative); pH Urine >= 9.0 (4.5-7.5)
[2024-05-24] MEDS ORDERED: DEXTROSE 50% 50 ML SYRINGE IV PRN (22:13)
[2024-05-24] MEDS ORDERED: GLUCAGON FOR INJ 1 MG VIAL SQ PRN (22:13)
[2024-05-24] MEDS ORDERED: GLUCOSE 10 TAB/TUBE PO PRN (22:13)
[2024-05-24] MEDS ORDERED: GLUCOSE 40% GEL 15 GM TUBE PO PRN (22:13)
[2024-05-24] MEDS ORDERED: PROMETHAZINE HCL 6.25 MG in SODIUM CHLORIDE 0.9% 50 ML IV PRN (22:13)
[2024-05-24] MEDS ORDERED: CARBOHYDRATES FOR HYPOGLYCEMIA PO PRN (22:13)
[2024-05-24] MEDS: ACETAMINOPHEN 325 MG TAB PO PRN (22:56)
[2024-05-24] MEDS: INSULIN ASPART PER UNIT CHARGE SC SCH (22:56)
[2024-05-24] MEDS: LANTUS PER UNIT CHARGE SQ SCH (22:57)
[2024-05-24] MEDS: METOPROLOL TARTRATE 25 MG TAB PO SCH (22:58)
[2024-05-24] MEDS: POTASSIUM CHLORIDE CRTAB 20 MEQ TABCR PO ONE (22:58)
[2024-05-24] MEDS: PREGABALIN 150 MG CAP PO SCH (23:01)
[2024-05-24] MEDS: POT PHOSPHATE MONOBASIC W/ SOD TAB PO SCH (23:01)
[2024-05-25] MEDS ORDERED: TROLAMINE SALICYLATE 10% CRM 255 APPLN/85 GM TUBE EXT PRN (01:32)
[2024-05-25] MEDS: PANTOprazole 40 MG TAB PO SCH (05:50)
[2024-05-25 07:03] LABS: Basophils # (auto) 0.06 K/uL (0.00-0.20); Basophils % (auto) 0.7 %; Eosinophils # (auto) 0.12 K/uL (0.00-0.50); Eosinophils % (auto) 1.3 %; Hematocrit (blood only) 33.9 % (37.0-47.0); Hemoglobin 10.5 g/dl (12.0-16.0); Immature Granulocytes # (auto) 0.23 K/uL (0.01-0.20); Immature Granulocytes % (auto) 2.5 %; Lymphocytes # (auto) 1.89 K/uL (1.20-3.40); Lymphocytes % (auto) 20.9 %; Mean Corpuscular Hemoglobin 26.8 pg (25.0-34.0); Mean Corpuscular Volume 86.5 fL (80.0-100.0); Mean Platelet Volume 11.2 fL (9.4-12.4); Monocytes # (auto) 0.88 K/uL (0.11-0.59); Monocytes % (auto) 9.7 %; Neutrophils # (auto) 5.88 K/uL (1.40-6.50); Neutrophils % (auto) 64.9 %; Platelet Count 268 K/uL (130-400); RDW Coefficient of Variation 14.1 % (11.5-14.5); Red Blood Count 3.92 M/uL (4.20-5.40); White Blood Count 9.06 K/ul (4.8-10.8)
--- NOTE | 2024-05-25 07:21 | Cardiology Consultation ---
Date of Consultation May 25, 2024 Assessment & Plan (1) Pre-syncope: (2) Atrial tachycardia, paroxysmal: (3) Chronic diastolic CHF (congestive heart failure): (4) Aortic stenosis: (5) CAD (coronary artery disease): (6) Bifascicular block: Plan Impression: Medically complex 83 year old female presents with presyncopal symptoms associated with short runs of paroxysmal atrial tach on telemetry. Potassium and mag were low on admission and has since been supplemented. Echocardiogram revealing LVEF 50-55%, no WMA. Moderate to severe with peak AV velocities recorded post PVC, average velocity 3.6m/sec. High-sensitivity troponin mildly elevated but flat. Hypervolemic on exam. Plan: Atrial tachycardia/presyncope: Telemetry reviewed-symptomatic paroxysmal atrial tach -Patient normally maintained on Metoprolol tartrate 25 mg BID at home, only getting 12.5 mg BID inpatient- will stop and transition to metoprolol succinate 25 mg BID; room to increase pending HR/Rhythm response. -History of of PAF/Flutter- anticoagulated with Coumadin; continue. INR goal 2-3 -Maintain K goal of 4.0 and mag goal of 2.0. Replace as needed. Adding spironolactone. Acute on chronic HFpEF: Hypervolemic on exam NYHA class III -Agree with continued use of 40 IV Lasix BID -Add spironolactone 12.5 mg daily -Daily standing weights. Strict I's/O. 2 g sodium diet. -CHF EDU -Anemia noted on CBC; will defer to primary service for workup. Recommend hgb >10 given comorbidities. Presumed CAD: Questionable coronary artery disease, prior wall motion abnormality noted on echo in September 2023. Not appreciated on today's imaging. -No ischemic workup has been completed--consider outpatient nuclear stress testing -Recommend starting Crestor 20 mg daily. Aortic stenosis: Moderate to severe on inpatient echo. -Will need ongoing surveillance. Consider outpatient valve clinic referral Case discussed with Dr. Diaz. Further recommendations pending assessment. I spent a total of 40 minutes on the date of service in preparation, delivery, and documentation of the care provided to the patient excluding any time spent in the performance of separately billed services. OSCAR Blanco Department of Cardiology, [facility] This chart was completed in part utilizing Speech Voice Recognition Software. Grammatical errors, random word insertions, pronoun errors, and incomplete sentences are an occasional consequence of this system due to software limitations, ambient noise, and hardware issues. Any formal questions or concerns about the content, text, or information contained within the body of this dictation should be directly addressed to the provider for clarification. Supervising Physician Co-Signing Physician Notes Patient was seen and personally examined, chart reviewed inpatient and outpatient. Full assessment and plan as well outlined above. Care and manage ment discussed with advanced provider and personally endorsed Complex patient with gradual decline over the past month's time with worsening edema shortness of breath as well as intermittent dizziness. Sense of heart fluttering and pounding. Transient atrial tachycardia's noted after admission now quiescent Responding to IV diuretics clinically Mild elevation of troponin but without crescendo pattern to suggest acute EKG with bifascicular heart block Exam: Obese age-appropriate female currently comfortable after initial diuresis Neck thick no distinct jugular venous distention. Carotid pulse with minimal delay Lungs diminished breath sounds Cardiovascular William regular with grade 2-3 over 6 systolic murmur. S2 diminished but present Extremities 2-3+ edema with erythema, weeping open area Data: Echocardiogram as outlined above. Aortic valve calcified but appears to open. Velocities are elevated post PVC findings are consistent with moderate to severe aortic stenosis by echo and exam. Critical aortic stenosis is not suggested but repeat echocardiogram post discharge warranted and ongoing follow Plan: As above continue IV diuretics, add spironolactone I spent a total of 30 minutes on the date of service in preparation, delivery, and documentation of the care provided to the patient excluding any time spent in the performance of separately billed services. History of Present Illness Reason for Consultation: Presyncope Acute on chronic diastolic CHF Requesting Physician: Joe lim Attending Physician: Ralf Hoang MD History of Present Illness 83-year-old female who presented to [facility] emergency department yesterday due to increased frequency of lightheadedness and presyncope. Notes that these "spells" date back to 7 years ago when she had breast cancer surgery. "Spells" are usually very infrequent- can go weeks to months without any episodes. However, over the last 4-6 weeks she has been noticing them more often. Patient describes episodes where she feels palpitations/nervousness in her chest and vision becomes blurry like she is going to " blackout", but has not passed out. Symptoms are brief, only lasting a few seconds. Notes that these "episodes" happen for no rhyme or reason can happen with exertion or at rest. Feels nauseated during the episodes. While in the ED patient notes that she had 7 "spells"-- Patient was using the bathroom and telemetry revealed episodes of atrial tach with rates in the 220s. Symptoms resolved spontaneously. x2 episodes occurred on 05/24 at 1813 and 1930. An addition episode occurred at 2345- patient felt similar symptoms. Both potassium and mag were low and have been replaced. K this morning was 3.5 and mag 2.4. Patient has had no further symptoms this morning. Unfortunately, over the last several weeks she has been more inactive due to knee pain and has been indulging in high sodium foods like TV dinners. She has been compliant with her Lasix but notes a 10 to 15 pound weight gain and worsening lower extremity edema. Does note she has chronic lymphedema but her legs are much worse now, improved from admission though after receiving 40 mg IV Lasix. Villarreal currently in place. EKG: ST with bifascicular block, 70 bpm unchanged from prior EKGs. Echo: LVEF 50-55%, no WMA. Moderate to severe with peak AV velocities recorded post PVC, average velocity 3.6m/sec. HS troponin mildly elevated (19.7 >> 39.5>> 34.5) Tele: SR 60-70s with multiple episode of SVT. Longest episodes on 05/24 at 1813, 1930, and 2345 (symptomatic) I/O: -825 mL (Villarreal in place) Weight: Pre hospital weight 03/2024; 120.9 kg (266 lbs). On Admission 121.5 kg >> 111.5 kg (? accuracy) Upon entrance into the room patient resting in bed. No acute concerns. Denies chest pain, shortness of breath, palpitations, dizziness, syncope or near syncope. Chronic orthopnea, no PND. Lower extremity edema/lymphedema above baseline. No fever, chills, cough, hematochezia, melena, or hemoptysis. 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 History of nonsustained VT History of paroxysmal SVT and paroxysmal atrial tach Chronic diastolic CHF Presumed coronary artery disease with apical wall motion abnormality noted on echo 09/2023, patient has not completed ischemic workup previously recommended. Declining ASA. Aortic stenosis; moderate with peak velocity of 354.3 cm/s per echo 09/2023 Hypertension Hyperlipidemia- declines statin therapy Type 2 diabetes with polyneuropathy History of pulmonary embolism, on warfarin Type 2 diabetes CKD stage III Essential tremor Chronic hypoxic respiratory failure, on 2 L supplemental O2. LUZ MARIA, intolerant to CPAP History of breast cancer Chronic lymphedema Allergies Allergy/AdvReac Type Severity Reaction Status Date / Time Penicillins Allergy Severe SOB Verified 05/23/24 14:02 ,THROAT SHUT,COULDN'T BREATHE rosiglitazone Allergy Severe UNKNOWN-RELATED Verified 05/23/24 14:02 POSS TO DVT/PE PER MEDICAL RECORD tramadol Allergy Unknown UNKNOWN Verified 05/23/24 14:02 adhesive AdvReac Mild IRRITATES Verified 05/23/24 14:02 SKIN Home Medications Medication Instructions Recorded Confirmed Type cholecalciferol (vitamin D3) 50 50 mcg PO Q OTHER DAY 10/20/23 05/24/24 History mcg (2,000 unit) capsule (Vitamin D3) cyanocobalamin (vitamin B-12) 1,000 mcg PO DAILY 10/20/23 05/24/24 History 1,000 mcg tablet (Vitamin B-12) diclofenac sodium 1 % topical gel 4 g topical QID PRN Pain 10/20/23 05/24/24 History ferrous sulfate 325 mg (65 mg 325 mg PO DAILY 10/20/23 05/24/24 History iron) tablet furosemide 40 mg tablet 40 mg PO AMHS 10/20/23 05/24/24 History insulin glargine 100 unit/mL See Rx Instructions .Route .COMPLEX 10/20/23 05/24/24 History subcutaneous solution (Lantus U-100 Insulin) metformin 1,000 mg tablet 1,000 mg PO BID 10/20/23 05/24/24 History metoprolol tartrate 25 mg tablet 12.5 mg PO AMHS 10/20/23 05/24/24 History pantoprazole 40 mg tablet,delayed 40 mg PO DAILYBB 10/20/23 05/24/24 History release pregabalin 150 mg capsule 150 mg PO BID 10/20/23 05/24/24 History tramadol 50 mg tablet 50 mg PO Q8 PRN Pain 10/20/23 05/24/24 History warfarin 5 mg tablet (Jantoven) 2.5 mg PO MO@1600 10/20/23 05/24/24 History escitalopram oxalate 10 mg tablet 10 mg PO DAILY 05/24/24 05/24/24 History warfarin 5 mg tablet (Jantoven) 5 mg PO SUTUWETHFRSA@1600 05/24/24 05/24/24 History Patient History Medical History Osteoarthritis Depression Poor historian Sleep apnea NO DEVICE USED Palliative care encounter AMS (altered mental status) Respiratory acidosis Admitted to intensive care unit Ascending cholangitis E coli bacteremia UTI (urinary tract infection) NSVT (nonsustained ventricular tachycardia) Left anterior fascicular block Acute cholecystitis due to biliary calculus Cholangitis Chronic venous insufficiency PAD (peripheral artery disease) Vitamin D insufficiency emt intermediate (current) use of 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 Diabetes mellitus with neuropathy Surgical History History of anesthesia reaction "MY HEART IS EXTRA FAST WHEN I GET ANESTHESIA" History of cholecystectomy History of ERCP History of tooth extraction History of tonsillectomy History of cataract surgery RT/LEFT H/O left mastectomy S/P right rotator cuff repair S/P hysterectomy Family History Grandmother (Paternal) Family history of diabetes mellitus Other Family history non-contributory No family history of adverse response to anesthesia Social History Smoking Status: Never smoker Second Hand Exposure: No; Do You Dip or Chew Tobacco: No; Tobacco Cessation Education Requested by Patient: No Hx Alcohol Use: No Hx Substance Use: No Preferred Language: Citizen Of [place] Communication Ability: Effective Visual Impairment: Limited Hearing Ability: Normal Crystal Flat Grinder Required: No Beliefs That Will Affect Care: None marital status: Current Living Situation: Spouse Current Living Situation Comment: lives at home with spouse current occupational status: retired How many Children do You have: 0 How many Children do You have Comment: Had one son who Other Information That Helps Us Care for You: No Feels Safe at Home: No Is there a partner from a previous relationship who is making you feel unsafe now?: No Any Concerns about Your Family Situation: No Would You Like to Speak to Someone About Your Situation: No Safety Concerns: Feels Safe At This Time Diet: regular Diet Comment: Stated cooks off and on, cousin also cooks for her Assistive Devices: Glasses and Wheelchair Assistive Devices Comment: uses bariatric w/c Review of Systems Review of Systems: All systems reviewed & are unremarkable except as noted in HPI & below Physical Exam Constitutional: WD/WN, vitals as above no acute distress Neck: normal visual inspection and trachea midline Respiratory: normal respiratory effort, lungs clear to auscultation no cough Auscultation: + diminished lung sounds; no rales, no rhonchi and no wheezes Cardiovascular: Rate/Rhythm: regular rate and regular rhythm Heart Sounds: normal S1, normal S2 and + murmur (+3/6 systolic ) Extremities: + edema (+2-3 BLLE pitting edema, legs reddened.) Gastrointestinal (Abdomen): normal bowel sounds, soft, nontender, no hepatosplenomegaly Skin: no rashes, warm and dry Neurologic: PERRL, EOMI, accommodation nl, no face palsy, no dysarthria Psychiatric: A+Ox3, euthymic affect Results & Data Vital Signs (Past 12 Hours) Vital Signs Temp Pulse Pulse Resp BP BP Pulse Ox 05/25/24 04:08 36.5 C 79 16 132/62 98 05/24/24 22:48 84 05/24/24 22:14 05/24/24 22:14 36.5 C 79 21 157/74 H 92 05/24/24 20:29 82 21 147/79 H 95 05/24/24 20:09 78 163/106 H 05/24/24 19:47 85 22 164/86 H 96 05/24/24 19:43 88 05/24/24 19:30 218 H 05/24/24 19:17 84 31 H 178/102 H 94 O2 Del Method O2 Flow Rate 05/25/24 04:08 Nasal Cannula 2.0 05/24/24 22:48 05/24/24 22:14 Nasal Cannula 2 05/24/24 22:14 Nasal Cannula 2 05/24/24 20:29 Nasal Cannula 2 05/24/24 20:09 05/24/24 19:47 Nasal Cannula 2 05/24/24 19:43 05/24/24 19:30 05/24/24 19:17 Nasal Cannula 2 Laboratory Results Cardiac Enzymes 05/24/24 05/24/24 05/25/24 Range/Units 17:42 22:50 06:04 AST 17 13 (13-39) U/L Troponin I High Sens 19.7 H 39.5 H D 34.5 H (0-14) pg/ml B-Natriuretic Peptide 177 H (0-100) pg/ml Coagulation 05/24/24 05/25/24 Range/Units 17:42 06:04 PT 20.8 H 19.7 H (9.0-12.0) Seconds B-Natriuretic Peptide 177 H (0-100) pg/ml CBC 05/24/24 05/25/24 Range/Units 17:42 06:04 WBC 8.99 9.06 (4.8-10.8) K/ul RBC 4.58 3.92 L (4.20-5.40) M/uL Hgb 12.1 10.5 L (12.0-16.0) g/dl Hct 38.8 33.9 L (37.0-47.0) % Plt Count 299 268 (130-400) K/uL Neut # (Auto) 6.34 5.88 (1.40-6.50) K/uL Lymph # (Auto) 1.41 1.89 (1.20-3.40) K/uL Lincoln # (Auto) 0.79 H 0.88 H (0.11-0.59) K/uL Eos # (Auto) 0.10 0.12 (0.00-0.50) K/uL Baso # (Auto) 0.08 0.06 (0.00-0.20) K/uL Comprehensive Metabolic Panel 05/24/24 05/25/24 Range/Units 17:42 06:04 Sodium 139 140 (136-145) mmol/L Potassium 3.3 L 3.5 (3.5-5.1) mmol/L Chloride 101 102 (98-107) mmol/L Carbon Dioxide 26 32 (21-32) mmol/L BUN 12 11 (6-23) mg/dl Creatinine 0.83 0.83 (0.6-1.2) mg/dl Glucose 156 H 143 H (70-99(Fasting)) mg/dl Calcium 8.9 8.0 L (8.6-10.3) mg/dl AST 17 13 (13-39) U/L ALT 8 6 L (7-52) U/L Alkaline Phosphatase 55 45 (34-104) U/L Total Protein 7.2 6.1 (6.0-8.3) gm/dl Albumin 3.8 3.2 L (3.4-5.0) gm/dl Intake and Output 05/24/24 05/25/24 05/25/24 22:59 06:59 14:59 Intake Total 400 / 750 350 / 750 Output Total 1200 / 1575 375 / 1575 Balance -800 / -825 -25 / -825 Intake: IV 400 / 400 Magnesium Sulfate / D5w 1 gm In 200 / 200 100 ml @ 100 mls/hr IV Q1H TAYO Rx#:[id number] Potassium Chloride / Wtr 10 meq 200 / 200 In 100 ml @ 100 mls/hr IV Q1H TAYO Rx#:[id number] Oral 350 / 350 Output: Urine 1200 / 1200 Urine Amount (Catheter) 375 / 375 Villarreal/Indwelling 375 / 375 Other: Weight 111.538 kg Weight Measurement Method Built in [facility] Diagnostic Findings Outpatient echocardiogram 09/2023 Interpretation Summary The examination is limited quality but adequate for evaluation of the referral indication. The qualitative LV ejection fraction is 55-59% (normal). The LV wall thickness is mildly increased (concentric). There is a small sized apical wall motion abnormality with hypokinesis of the segments. The aortic valve is moderately calcified. Moderate aortic valve stenosis is present. Mild mitral regurgitation is present. Mild tricuspid regurgitation is present. There is no evidence of pulmonary hypertension. Compared to study dated January 22, 2022, aortic valve systolic gradient unchanged, apical inferior wall motion abnormality now present.
[2024-05-25 07:31] LABS: INR 1.9 (0.9-1.1); Prothrombin Time 19.7 Seconds (9.0-12.0)
[2024-05-25 07:35] LABS: Albumin Globulin Ratio 1.1 (0.9-2); Albumin Level 3.2 gm/dl (3.4-5.0); BUN Creatinine Ratio 13.3 (10-20); Bilirubin,Total 0.4 mg/dl (0.2-1.0); Creatinine Clr Calc Pharmacy 66.1 ml/min; Est GFR (African American) 76.6 ml/min; Est GFR (Non-African American) 66.1 ml/min; Globulin 2.9 gm/dl (2.5-4.0); Magnesium 2.4 mg/dl (1.7-2.4); Phosphorus 5.6 mg/dl (2.5-4.9); Potassium 3.5 mmol/L (3.5-5.1); Total Protein 6.1 gm/dl (6.0-8.3)
[2024-05-25 07:40] LABS: Troponin I High Sensitivity 34.5 pg/ml (0-14)
[2024-05-25] MEDS: CYANOCOBALAMIN (B-12) 500 MCG TABLET PO SCH (08:07)
[2024-05-25] MEDS: FERROUS SULFATE 325 MG TAB PO SCH (08:07)
[2024-05-25] MEDS: ESCITALOPRAM OXALATE 10 MG TAB PO SCH (08:07)
[2024-05-25] MEDS: FAMOTIDINE 20 MG TAB PO PRN (08:08)
[2024-05-25] MEDS: FUROSEMIDE 40 MG/4 ML VIAL IV SCH (08:08)
[2024-05-25] MEDS: CHOLECALCIFEROL 25 MCG (1000 UNITS) TAB PO SCH (08:08)
[2024-05-25] MEDS: POTASSIUM CHLORIDE CRTAB 20 MEQ TABCR PO SCH (08:14)
--- NOTE | 2024-05-25 08:21 | Hospitalist Progress Note ---
Date of Service May 25, 2024 Assessment & Plan (1) Acute on chronic diastolic CHF (congestive heart failure): (2) Hypokalemia: (3) Hypomagnesemia: (4) Hypophosphatemia: (5) Paroxysmal atrial flutter: (6) Acquired lymphedema: (7) Elevated troponin: (8) Moderate aortic stenosis: (9) LUZ MARIA (obstructive sleep apnea): (10) Morbid obesity with BMI of 40.0-44.9, adult: (11) Chronic hypoxic respiratory failure: Plan Pt is an 83-year-old female with past med history significant for type 2 diabetes, diabetic polyneuropathy, obstructive sleep apnea noncompliant with CPAP on 2 L oxygen, paroxysmal SVT, nonsustained ventricular tachycardia, A- flutter, diastolic CHF, hypertension, nonrheumatic aortic valve stenosis, obesity, GERD, CKD stage III, osteoarthritis, history of breast cancer, history of chronic lymphedema, history of PE who presents with increased lower extremity swelling. Acute on chronic diastolic CHF B/L Acquired lymphedema Moderate aortic valve stenosis Possible Cellulitis R>L Increased lower extremity swelling BNP 177 Chest XRAY noting stable cardiomegaly echo from 09/2023 moderate Aortic stenosis, EF 55-59%, small apical WMA possible old AR, compared to prior echo WMA was new received 40mg IV lasix in ED and thus far 1200ml output continue lasix IV 40mg BID, add KCL supplementation daily weights, strict I and O Repeat echo pending Wound care consult On rocephin for possible cellulitis(R>L) and UTI (see below) consult cardiology due to above and concern for tachyarrhythmia, appreciate recs Pre Syncope Tachy-arrhythmia pt reports, "spells," where she gets nervousness in her chest and feels like she could pass out, she reports a few seconds of passing out in ED, no irwin chest pain in ED when pt was exerting in bathroom she became symptomatic of these, "spells" and was her HR was in the 200s, concern for flutter vs Monomorphic Vtach @ 1813 and 1930 monitor on tele and replete lytes Cardiology consulted, appreciate recs History of a flutter History of paroxysmal SVT PAF Continue metoprolol and Coumadin as above Elevated trop Trop elevated and 19.7, peaked and downtrended to 34.5 Likely in setting of above Doubt ACS UTI UA suggestive of infection urine Cx pending Started on Rocephin (tolerated class in the past) Hypokalemia Replete as needed keep above 4 secondary to history of arrhythmias Hypomagnesemia Replete as needed keep above 2.0 secondary to history of arrhythmias Hypophosphatemia currently oversupplemented, will hold further supplementation Replete as needed Chronic Anemia hgb 10, appears baseline Anemia panel for AM- iron, b12 and folate Supplement as needed Chronic hypoxic resp failure On 2L chronically continue to monitor History of PE Continue warfarin T2DM A1c 6.7 Mar 27 2024 Lantus/novolog per protocol, hold metformin Obstructive sleep apnea Oxygen at bedtime, patient noncompliant with CPAP Hypertension BP elevated in ED; however small cuff noted to be on pt, large cuff placed and SBP in 140s received IV labetolol in ED continue metoprolol, previously on lisinopril but this was discontinued History of breast cancer S/p left mastectomy previous on anastrazole Sacral wound/Bilateral lower ext wounds consult wound nurse continue sacral treatment per wound center Morbid obesity, BMI 43.2 encourage diet/lifestyle changes Diet: DMII/HH/low sodium DVT prophylaxis: On Coumadin Dispo: PT/OT ordered for further recs Admission and Anticipated Discharge Date Admission Date: May 24, 2024 Subjective pt was seen while sitting up in bed. States legs are swollen and red but does not believe they are infected. Denies fevers, chills or night sweats Review of Systems Review of Systems: All systems reviewed & are unremarkable except as noted in Subjective Physical Exam Physical Exam: General: Alert, oriented. No acute distress Skin: lower extremities with erythema, R>L Psych: Appropriate mood and affect Neuro: difficulty with movements in the bed HEENT: NC/AT CV: RRR Resp: Breath sounds clear but decreased bilaterally, no increased effort of breathing Abdomen: Soft, nontender Extremities: +++ edema in lower extremities bilaterally, lower extremities with erythema, R>L. Results & Data Results & Data Vital Signs (Past 12 Hours) Vital Signs Temp Pulse Pulse Resp BP Pulse Ox O2 Del Method 05/25/24 07:32 36.6 C 66 20 152/76 H 95 Nasal Cannula 05/25/24 04:08 36.5 C 79 16 132/62 98 Nasal Cannula 05/24/24 22:48 84 05/24/24 22:14 Nasal Cannula 05/24/24 22:14 36.5 C 79 21 157/74 H 92 Nasal Cannula 05/24/24 20:29 82 21 147/79 H 95 Nasal Cannula O2 Flow Rate 05/25/24 07:32 2 05/25/24 04:08 2.0 05/24/24 22:48 05/24/24 22:14 2 05/24/24 22:14 2 05/24/24 20:29 2 Diagnostic Findings Chest X-Ray 05/24/24 17:32 XR chest 1V portable HISTORY: Chest pain, nonspecific COMPARISON: Chest 10/28/2023. FINDINGS: No pneumothorax. No pleural effusions. The cardiac silhouette remains enlarged. No focal lung consolidations to suggest a pneumonia. No evidence for pulmonary edema. No acute fractures. Small stable linear scarlike density within the left midlung zone. IMPRESSION: Stable cardiomegaly. Otherwise, no acute process within the chest. ACT 112: Negative or not required by law. Electronically signed by: Norman Otto M.D. 05/24/2024 6:57 PM
[2024-05-25] MEDS: SPIRONOLACTONE 12.5 MG TAB PO SCH (10:48)
[2024-05-25] MEDS: cefTRIAXone SODIUM 2,000 MG/50 ML BAG IV SCH (10:48)
[2024-05-25] MEDS: METOPROLOL SUCC 25MG EXT REL TAB PO SCH (10:48)
--- NOTE | 2024-05-25 12:46 | Electrocardiogram Report ---
Test Reason : Blood Pressure : / mmHG Vent. Rate : 086 BPM Atrial Rate : 086 BPM P-R Int : 156 ms QRS Dur : 134 ms QT Int : 436 ms P-R-T Axes : 017 -67 083 degrees QTc Int : 521 ms Normal sinus rhythm Right bundle branch block Left anterior fascicular block Bifascicular block Left ventricular hypertrophy with repolarization abnormality Abnormal ECG When compared with ECG of 28-OCT-2023 16:11, Vent. rate has increased BY 28 BPM QT has lengthened Confirmed by Bhavesh Rao ([id number]) on 05/25/2024 12:46:32 PM Referred By: REFERRED SELF Confirmed By:Dillon Rao
--- NOTE | 2024-05-25 12:53 | Electrocardiogram Report ---
Test Reason : Blood Pressure : / mmHG Vent. Rate : 070 BPM Atrial Rate : 070 BPM P-R Int : 176 ms QRS Dur : 142 ms QT Int : 466 ms P-R-T Axes : 019 -63 007 degrees QTc Int : 503 ms Sinus rhythm with marked sinus arrhythmia Right bundle branch block Left anterior fascicular block Bifascicular block Voltage criteria for left ventricular hypertrophy Abnormal ECG When compared with ECG of 24-MAY-2024 17:37, (unconfirmed) Nonspecific T wave abnormality now evident in Inferior leads Nonspecific T wave abnormality has replaced inverted T waves in Lateral leads Confirmed by Bhavesh Rao ([id number] on 05/25/2024 12:53:17 PM Referred By: REFERRED SELF Confirmed By:Dillon Rao
--- OUTSIDE RECORDS SUMMARY | 2024-05-25 14:30 | External Medical Summary | Summary of Care ---
Author Name Unknown Organization [facility] Address [address] [facility] [place] [address] Phone [phone] Care Team Providers Care Pipeline Superintendent Name Role Phone Christiano Felton MD Primary Care Provider [phone] Reason for Visit * Reason Comments Dosage Adjustment Via Phone (anticoag Cl inic) Encounter Details Date Type Department Care Team (Late st Contact Info) Description 05/23/2024 6:00 AM EDT Anticoagulation Centralized Clinical Pharmacy Services, Gino Michael [address] [place] [address] [place] [address] [facility], [address] [place] [address] History of pulmonary embolism*; Typical atrial flutter (HCC) Allergies Active Allergy Reactions Criticality Noted Date Comments Adhesive Tape 07/22/2017 Penicillins 09/07/1999 Difficulty breathing Rosiglitazone Maleate 12/25/2004 possible relation to DVT, PE's Tramadol Hcl Hives 10/20/2023 documented as of this encounter (statuses as of 05/23/2024) Medications Medication Sig Dispensed Refills Start Date [...] other day. 30 Cap 1 12/12/2020 Active Pantoprazole Sodium 40 MG Oral Tablet Delayed Release (Protonix) TAKE 1 TABLET BY MOUTH ONCE DAILY BEFORE BREAKFAST 90 Tablet 3 07/06/2023 Active BD Insulin Syringe U-500 31G X 6MM 0.5 ML (Insulin Syringe/Needle U-500)Indications:Ty pe 2 diabetes mellitus with stage 1 chronic kidney disease, unspecified whether fpc insulin use (HCC) Use as directed. Use for insulin injections twice daily DxE11.29 200 Each 3 08/24/2023 Active Ferrous Sulfate 325 (65 Fe) MG Oral Tablet (Feosol)Indications: Iron deficiency anemia, unspecified iron deficiency anemia type Take one tab by mouth every day 90 Tablet 3 09/20/2023 Active Furosemide 40 MG Oral Tablet (Lasix)Indications:H eart failure, diastolic, due to HTN (HCC),Chronic acquired lymphedema TAKE 1 TABLET BY MOUTH TWICE DAILY every morning and before bedtime 180 Tablet 3 11/14/2023 Active Metoprolol Tartrate 25 MG Oral Tablet (Lopressor)Indicatio ns:Paroxysmal atrial flutter ([facility]),Aortic valve stenosis, etiology of cardiac valve disease unspecified,HTN, goal below 140/90 Take 0.5 Tablets by mouth in the morning and 0.5 Tablets before bedtime. 90 Tablet 3 11/30/2023 Active Insulin Glargine 100 UNIT/ML Subcutaneous Solution (Lantus)Indications: Type 2 diabetes mellitus with hemoglobin A1c goal of less than 8.0% ([facility]) INJECT 36 UNITS UNDER THE SKIN IN THE MORNING AND 42 UNITS IN THE EVENING 90 mL 1 12/07/2023 Active Pregabalin 150 MG Oral Capsule (Lyrica)Indications: Type 2 diabetes mellitus with diabetic nephropathy, with long-term current use of insulin ([facility]) Take 1 Capsule by mouth in the morning and 1 Capsule before bedtime. 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 7 8 tutor current use of anticoagulant therapy TAKE ONE TO ONE and 1/2 TABLETs BY MOUTH ONCE DAILY INSTRUCTED BY COUMADIN CLINIC 135 Tablet 1 02/27/2024 Active Escitalopram Oxalate 10 MG Oral Tablet (Lexapro)Indications :Current moderate episode of major depressive disorder, unspecified whether recurrent ([facility]) 1/2 tab daily x 7 days then 1 tab daily 90 Tablet 3 03/27/2024 Active traMADol HCl 50 MG Oral Tablet (Ultram)Indications: Type 2 diabetes mellitus with diabetic nephropathy, with long-term current use of insulin (HCC) Take 1 Tablet by mouth every 8 hours as needed for Pain, Severe. 30 Tablet 04/16/2024 Active Accu-Chek Lennie Plus In Vitro Strip (Glucose Blood) USE STRIP TO CHECK GLUCOSE 2 TO 3 TIMES A DAY FOR UNCONTROLLED DIABETES 300 Strip 1 04/18/2024 Active metFORMIN HCl 1000 MG Oral Tablet (Glucophage)Indicati ons:Type 2 diabetes mellitus with stage 3b chronic kidney disease, with long-term current use of insulin (HCC) TAKE 1 TABLET BY MOUTH TWICE DAILY every morning and before bedtime 180 Tablet 1 04/20/2024 Active documented as of this encounter (statuses as of 05/23/2024) Active Problems Problem Noted Date Diagnosed Date [...] History of nonmelanoma skin cancer 02/09/2018 Overview: 2014 left ala - SCC 2015 right arm [...] Obesity Taxonomy ICD-10 update of inactive term 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 GENERAL OSTEOARTHROSIS 09/22/1999 Lymphedema documented as of this encounter (statuses as of 05/23/2024) Resolved Problems Problem Noted Date Diagnosed Date [...] as of this encounter (statuses as of 05/23/2024) Immunizations Name Administration Dates Next Due Pneumococcal Conjugate Vacc, 13 Valent (Prevnar) 08/09/2017 Pneumococcal Polysaccharide PPV23 (Pneumovax) 07/24/2008 Seasonal Influenza, PF, 6 M & above, IM , (FluLaval or Fluzone) 08/04/2020,07/30/2019,09/04/2018,09/12 Seasonal Influenza, Quadriva lent Hd (Fluzone Hd) 09/08/2023,07/21/2022,08/31/2021 Seasonal Influenza, Quadriva lent, No Preserve, IM 09/01/2016,08/12/2015 Seasonal Influenza, Split, I IV3, With Preserve, Inj 09/03/2014,08/29/2013,08/08/2012,08/11,08/10/2010,07/28/2009,08/26/2008 ,09/12/2006 TDAP (age 10 and older)(Boostrix) 03/27/2024,08/2014 documented as of this encounter Social History Tobacco Use Types Packs/Day Years Used Date Smoking Tobacco: Never Passive Smoke Exposure: Past Smokeless Tobacco: Never Alcohol Use Standard Drinks/Week Comments No 0 (1 standard drink = 0.6 oz pur e alcohol) PHQ-2 Answer Date Recorded PHQ-2 Score 8 08/04/2020 Hunger Vital Sign Answer Date Recorded Worried About Running Out of Food in the Last Ye ar Never true 01/28/2020 Ran Out of Food in the Last Year Never true 01/28/2020 Utilities Answer Date Recorded Do you have trouble paying y our heating, water, or electric bill? (Adult - for ages 18 years and over) Not on file 05/01/2024 Is your family able to pay t he heat, water, or electric bill? (Household - for ages 0-17 years) Not on file 05/01/2024 Does your family have access to good internet? (Household - for ages 0-17 years) Not on file 05/01/2024 Social Connections Answer Date Recorded How often do you feel lonely or isolated from those around you? (Adult - for ages 18 years and over) Not on file 05/01/2024 Sex and Gender Information Value Date Recorded Sex Assigned at Female 07/30/2019 1:32 PM EDT Gender Identity Female 07/30/2019 1:32 PM EDT Sexual Orientation Straight 07/30/2019 1: 32 PM EDT Job Start Date Occupation Industry Not on file Not on file Not on file documented as of this encounter Progress Notes * Eda Ruelas, utility inspector - 05/23/2024 9:36 AM EDT Contacts Type Contact Phone/Fax 05/23/2024 09:34 AM EDT Phone (Outgoing) Gloria Felix (Self) [phone] (H) Spoke to Patient Subjective Patient Findings Negatives: Signs/symptoms of bleeding, Change in health, Change in activity, Upcoming invasive procedure, Missed doses, Extra doses, Change in medications, Change in diet/appetite, Bruising Advised patient to contact Anticoagulation Clinic if any unusual bruising or bleeding, recent illness, changes in medication, or questions/concerns. PT/INR results, Coumadin dose instructions, and next PT/INR date communicated as noted by Pharmacist: Yes KSENIA HARKINS 05/23/2024, 9:36 AM * Kristyn Cross RPh - 05/23/2024 8:34 AM EDT Coumadin Clinic (region specific) Objective Current Warfarin Dose As of 05/23/2024 Warfarin maintenance plan: 2.5 mg (5 mg x 0.5) every Mon; 5 mg (5 mg x 1) all other days INR Result As of 05/23/2024 INR goal: 2.0-3.0 INR used for dosin.0 (05/22/2024) Assessment & Plan Warfarin Plan As of 05/23/2024 Full warfarin instructions: 2.5 mg every Mon; 5 mg all other days No change documented: Kristyn Cross RPh Next INR check: 06/05/2024 Repeat PT/INR in 2 week(s) Weekly dose: not changed Additional Dosing Information: Description GML MTuTh Takes in AM Tech to contact patient with dose instructions as noted. Kristyn Cross RPh 05/23/2024, 8:34 AM documented in this encounter Plan of Treatment Upcoming Encounters Date Type Department Care Team (Late st Contact Info) Description 06/07/2024 1:00 PM EDT Office Visit [facility] [address] [facility] [place] [phone] Christiano Felton MD [address] [facility] [place] [address] 06/29/2024 2:00 PM EDT Office Visit Cardiology, [facility] [address] [address] Christiano Caballero PA-C [address] [place] [address] 08/10/2024 12:00 PM EDT Laboratory Laboratory [facility] [address] [place] [phone] [facility] [address] [facility] [place] [address] 08/10/2024 1:00 PM EDT Immunization/Injecti on Hematology/Oncology Treatment, [place] [address] [facility] [address] [address] [place] [phone] Nurse, Med [address] [facility] [place] [address] 08/27/2024 3:00 PM EDT Imaging Radiology, [address] [place] [address] 09/13/2024 9:20 AM EDT Laboratory Laboratory [facility] [address] [place] [address] [facility] [address] [facility] [place] [address] 09/20/2024 3:00 PM EST Office Visit Hematology/Oncology [facility] [address] [place] [phone] Caroline Guerrier CRNP [address] [facility] [place] [address] Health Maintenance Due Date Last Done Comments Depression Monitoring 08/04/2021 08/04/2020 Albumin/Creatinine Ratio 06/02/2023 022, 01/24/2019, 02/08/2018, Additional history exists COVID-19 Vaccine ( season) 2023 01/03/2021, 12/13/2020 DXA Scan 06/02/2024 06/02/2022 (Decl ined), 03/26/2019, 03/21/2017, Additional history exists Influenza Vaccine (FLU shot) (#1) 2024 09/08/2023, 07/21/2022, 08/31/2021, Additional history exists GFR 08/10/2024 02/08/2024, 01/2024, 09/08/2023, Additional history exists HbA1c 09/27/2024 03/27/2024, 0804/2023, 01/25/2023, Additional history exists CKD HGB USE SMARTSET 00270 02/07/202502/07, 02/08/2024, 10/10/2023, Additional history exists CKD PHOS USE SMARTSET 25056 02/07/2025 03/05/2024, 08/05/2023, 05/26/2023, Additional history exists Diabetic Foot Exam 03/27/2025 03/27/2024, 0 06/02/2022, 01/06/2021, Additional history exists Diabetic Eye Exam 05/08/2025 05/08/2024, , 05/07/2022, Additional history exists DTaP,Tdap,and Td Vaccines (3 - Td or Tdap) 03/27/2034 03/27/2024, 01/21/2014, 06/14/1988 Pneumococcal Vaccine: 65+ Years Completed 08/09/2017, 07/24/2008, 08/12/2003 VITAMIN D LEVEL ONCE IN A LIFETIME-USE SMARTSET# [id number] Completed 11/02/2017, 08/29/2013, 06/20/2012, Additional history exists HPV (Gardasil) Vaccine Aged Out No lo nger eligible based on patient's age to complete this topic Hepatitis B Vaccine Aged Out No longe r eligible based on patient's age to complete this topic MENINGOCOCCAL (MENACTRA/MENVEO) Aged Out No longer eligible based on patient's age to complete this topic Zoster Vaccines Discontinued documented as of this encounter Medical Devices Not on filedocumented as of this encounter Visit Diagnoses Diagnosis History of pulmonary embolism- Primary Personal history of pulmonary embolism Typical atrial flutter (HCC) Atrial flutter documented in this encounter Care Teams Pipeline Superintendent Relationship Specialty Start Date End Date Christiano Felton MD [address] [place] [address] PCP - General 12/30/1997 documented as of this encounter
--- OUTSIDE RECORDS SUMMARY | 2024-05-25 14:30 | External Medical Summary ---
Author Name Unknown Address Unknown Organization K0G:[facility] [address] [place] [address] Laboratory Report Ordering Provider Test Date Status MAXIMILIAN BRINK 05/22/2024 09:08:00 Final Warfarin Therapy
INR: 2 .0-3.0 conventional anticoagulation
INR: 2.5- 3.5 high intensity anticoagulation Observation Date Value Abnormality Reference (Units ) Status PT 05/22/2024 09:08:00 23.1 Above high normal 11 .6-15.2 (seconds) Final INR 05/22/2024 09:08:00 2.0 Above high normal 0. 8-1.2 Final Performing Location [facility] [address] [place] [address]
--- OUTSIDE RECORDS SUMMARY | 2024-05-25 14:30 | External Medical Summary | Summary of Care ---
Author Name Unknown Organization [facility] Address [address] [facility] [place] [address] Phone [phone] Care Team Providers Care Bee Robber Name Role Phone Christiano Felton MD Primary Care Provider [phone] Encounter Details Date Type Department Care Team (Late st Contact Info) Description 05/22/2024 Orders Only Lab [facility] [address] [facility] [address] Kristyn Cross, [facility] [address] [place] [address] director long term care current use of anticoagulant therapy* Allergies Active Allergy Reactions Criticality Noted Date Comments Adhesive Tape 07/22/2017 Penicillins 09/07/1999 Difficulty breathing Rosiglitazone Maleate 12/25/2004 possible relation to DVT, PE's Tramadol Hcl Hives 10/20/2023 documented as of this encounter (statuses as of 05/22/2024) Medications Medication Sig Dispensed Refills Start Date [...] stage 1 chronic kidney disease, unspecified whether nursing home insulin use (HCC) Use as directed. Use [...] MG Oral Tablet (Lopressor)Indicatio ns:Paroxysmal atrial flutter ([facility]),Aortic valve stenosis, etiology of cardiac valve disease unspecified,HTN, goal below 140/90 Take 0.5 Tablets by mouth in the morning and 0.5 Tablets before bedtime. 90 Tablet 3 11/30/2023 Active Insulin Glargine 100 UNIT/ML Subcutaneous Solution (Lantus)Indications: Type 2 diabetes mellitus with hemoglobin A1c goal of less than 8.0% ([facility]) INJECT 36 UNITS UNDER THE SKIN IN THE MORNING AND 42 UNITS IN THE EVENING 90 mL 1 12/07/2023 Active Pregabalin 150 MG Oral Capsule (Lyrica)Indications: Type 2 diabetes mellitus with diabetic nephropathy, with long-term current use of insulin ([facility]) Take 1 Capsule by mouth in the morning and 1 Capsule before bedtime. 60 Capsule 11 01/19/2024 Active Warfarin Sodium 5 MG Oral Tablet (Jantoven)Indication s:History of pulmonary embolism,Anticoagula tion management encounter,halfway current use of anticoagulant therapy TAKE ONE TO ONE and 1/2 TABLETs BY MOUTH ONCE DAILY INSTRUCTED BY [facility]MADIN CLINIC 135 Tablet 1 02/27/2024 Active Escitalopram Oxalate 10 MG Oral Tablet (Lexapro)Indications :Current moderate episode of major depressive disorder, unspecified whether recurrent (HCC) 1/2 tab daily x 7 days then [...] as of this encounter (statuses as of 05/22/2024) Active Problems Problem Noted Date Diagnosed Date [...] Obesity Taxonomy ICD-10 update of inactive term halfway current use of anticoagulant therapy 1 11/25/2008 Overview: ICD-10 update of inactive term Primary localized osteoarthrosis, lower leg 09/15 Diabetic polyneuropathy 07/13/2006 ADVANCE DIRECTIVE INFORMATION 04/16/2005 Overview: No, Advance Directive brochure given to patient at prior appointment. GENERAL OSTEOARTHROSIS 09/22/1999 Lymphedema documented as of this encounter (statuses as of 05/22/2024) Resolved Problems Problem Noted Date Diagnosed Date [...] as of this encounter (statuses as of 05/22/2024) Immunizations Name Administration Dates Next Due Pneumococcal [...] on file documented as of this encounter Plan of Treatment Upcoming Encounters Date Type Department Care Team (Latest Contact Info) Description 05/22/2024 7:00 AM EDT Laboratory Lab Mobile Phlebot[facility] [address] [place] [address] [facility] Mobile Home Draw [address] [place] [address] halfway current use of anticoagulant therapy 05/23/2024 6:00 AM EDT Anticoagulation Centralized Clinical Pharmacy Services, Gino Michael [address] [place] [address] [place] [address] [place] [address] 06/07/2024 1:00 PM EDT Office Visit Family Practice, [place] [address] [place] [facility] [place] [phone] Christiano Felton MD [address] [place] [facility] [place] [address] 06/29/2024 2:00 PM EDT Office Visit Cardiology, [facility] [address] [place] [address] Christiano Caballero PA-C [address] [facility] [place] [address] 08/10/2024 12:00 PM EDT Laboratory Laboratory [facility] [place] [address] [place] [phone] [address] [facility] [address] [place] [address] 08/10/2024 1:00 PM EDT Immunization/Injection Hematology/Oncolo gy Treatment, [place] [address] [place], [place] [phone] Nurse, Med 4 [address] [place] [address] 08/27/2024 3:00 PM EDT Imaging Radiology, [place] [id number] [facility] [place] [address] 09/13/2024 9:20 AM EDT Laboratory Laboratory [facility] [place] [address] [place] [address] [facility] [address] [place] [address] 09/20/2024 3:00 PM EST Office Visit Hematology/Oncolo gy [facility] [place] [address] [place] [address] Caroline Guerrier CRNP [address] [place], [place] [address] [address] Scheduled Orders Name Type Priority Associated Diagnoses Orde r Schedule PT INR Lab Routine halfway current use of anticoagulant therapy Expected: 05/22/2024, Expires: 05/22/2025 Health Maintenance Due Date Last Done Comments Depression Monitoring 08/04/2021 08/04/2020 Albumin/Creatinine Ratio 06/02/2023 022, 01/24/2019, 02/08/2018, Additional history exists COVID-19 Vaccine ( season) 2023 01/03/2021, 12/13/2020 DXA Scan 06/02/2024 06/02/2022 (Decl ined), 03/26/2019, 03/21/2017, Additional history exists Influenza Vaccine (FLU shot) (#1) 2024 09/08/2023, 07/21/2022, 08/31/2021, Additional history exists GFR 08/10/2024 02/08/2024, 01/0 01/2024, 09/08/2023, Additional history exists HbA1c 09/27/2024 03/27/2024, 0804/2023, 01/25/2023, Additional history exists CKD HGB USE SMARTSET 66047 02/07/202502/07, 02/08/2024, 10/10/2023, Additional history exists CKD PHOS USE SMARTSET 32934 02/07/2025 03/2 05/2024, 08/05/2023, 05/26/2023, Additional history exists Diabetic Foot Exam 03/27/2025 03/27/2024, 0 06/02/2022, 01/06/2021, Additional history exists Diabetic Eye Exam 05/08/2025 05/08/2024, , 05/07/2022, Additional history exists DTaP,Tdap,and Td Vaccines (3 - Td or Tdap) 03/27/2034 03/27/2024, 01/21/2014, 06/14/1988 Pneumococcal Vaccine: 65+ Years Completed 08/09/2017, 07/24/2008, 08/12/2003 VITAMIN D LEVEL ONCE IN A LIFETIME-USE SMARTSET# [id number] Completed 11/02/2017, 08/29/2013, 06/20/2012, Additional history exists [...] as of this encounter Visit Diagnoses Diagnosis halfway current use of anticoagulant therapy director long term care current use of anticoagulant therapy- Primary documented in this encounter Care Teams Bee Robber Relationship Specialty Start Date End Date Christiano Felton MD [address] [place] [address] PCP - General 12/30/1997 documented as of this encounter
--- OUTSIDE RECORDS SUMMARY | 2024-05-25 14:31 | External Medical Summary | Summary of Care ---
Author Name Unknown Organization [facility] Address [address] [place] [address] Phone [phone] Care Team Providers Care Painting Instructor Name Role Phone Devi Felton MD Primary Care Provider [phone] Reason for Visit * Reason Comments eRx-Medication Refill Encounter Details Date Type Department Care Team (Late st Contact Info) Description 04/13/2024 Refill [facility] [address] [place] [address] Devi Felton MD [address] [place] [address] Type 2 diabetes mellitus with diabetic nephropathy, with long-term current use of insulin ([facility]) Allergies Active Allergy Reactions Criticality Noted Date Comments Adhesive Tape 07/22/2017 Penicillins 09/07/1999 Difficulty breathing Rosiglitazone Maleate 12/25/2004 possible relation to DVT, PE's Tramadol Hcl Hives 10/20/2023 documented as of this encounter (statuses as of 04/16/2024) Medications Medication Sig Dispensed Refills Start Date End Date Status VOLTAREN 1 % TD GELIndications:Gen eralized osteoarthritis Apply to affected area(knees) 4 grams up to 4 times daily 100 g 5 3 Active Vitamin B-12 1000 MCG Sublingual Tablet SublingualIndicati ons:B12 deficiency Take 1 Tab by mouth daily. 90 Tab 1 1 Active Vitamin D3 50 MCG (1999 UT) Oral Capsule Take 1 Cap by mouth every other day. 30 Cap 1 1 Active Accu-Chek Lennie Plus In Vitro Strip (Glucose Blood) USE STRIP TO CHECK GLUCOSE 2 TO 3 TIMES DAILY FOR UNCONTROLLED DIABETES. 300 Strip 3 3 Active Pantoprazole Sodium 40 MG Oral Tablet Delayed Release (Protonix) TAKE 1 TABLET BY MOUTH ONCE DAILY BEFORE BREAKFAST 90 Tablet 3 3 Active metFORMIN HCl 1000 MG Oral Tablet (Glucophage)Indica tions:Type 2 diabetes mellitus with stage 3b chronic kidney disease, with long-term current use of insulin (HCC) TAKE 1 TABLET BY MOUTH TWICE DAILY; morning and before bedtime 180 Tablet 2 3 Active BD Insulin Syringe U-500 31G X 6MM 0.5 ML (Insulin Syringe/Needle U-500)Indications: Type 2 diabetes mellitus with stage 1 chronic kidney disease, unspecified whether superintendent terminal insulin use (HCC) Use as directed. Use for insulin injections twice daily DxE11.29 200 Each 3 3 Active Ferrous Sulfate 325 (65 Fe) MG Oral Tablet (Feosol)Indication s:Iron deficiency anemia, unspecified iron deficiency anemia type Take one tab by mouth every day 90 Tablet 3 3 Active Furosemide 40 MG Oral Tablet (Lasix)Indications :Heart failure, diastolic, due to HTN (HCC),Chronic acquired lymphedema TAKE 1 TABLET BY MOUTH TWICE DAILY every morning and before bedtime 180 Tablet 3 4 Active Metoprolol Tartrate 25 MG Oral Tablet (Lopressor)Indicat ions:Paroxysmal atrial flutter (HCC),Aortic valve stenosis, etiology of cardiac valve disease unspecified,HTN, goal below 140/90 Take 0.5 Tablets by mouth in the morning and 0.5 Tablets before bedtime. 90 Tablet 3 4 Active Insulin Glargine 100 UNIT/ML Subcutaneous Solution (Lantus)Indication s:Type 2 diabetes mellitus with hemoglobin A1c goal of less than 8.0% ([facility]) INJECT 36 UNITS UNDER THE SKIN IN THE MORNING AND 42 UNITS IN THE EVENING 90 mL 1 4 Active Pregabalin 150 MG Oral Capsule (Lyrica)Indication s:Type 2 diabetes mellitus with diabetic nephropathy, with long-term current use of insulin (HCC) Take 1 Capsule by mouth in the morning and 1 Capsule before bedtime. 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 30 Tablet 4 Active traMADol HCl 50 MG Oral Tablet (Ultram)Indication s:Type 2 diabetes mellitus with diabetic nephropathy, with long-term current use of insulin ([facility]) Take 1 Tablet by mouth daily as needed for Pain, Moderate. 30 Tablet 4 04/16/20 24 Discontinued documented as of this encounter (statuses as of 04/16/2024) Active Problems Problem Noted Date Diagnosed Date [...] MEDICATION USE AGREEMENT 06/10/2015 Overview: Managed by Devi Ferrera To view the Medication Usage Agreement, [...] Obesity Taxonomy ICD-10 update of inactive term snf current use of anticoagulant therapy 1 11/25/2008 Overview: ICD-10 update of inactive term Primary localized osteoarthrosis, lower leg 09/15 Diabetic polyneuropathy 07/13/2006 ADVANCE DIRECTIVE INFORMATION 04/16/2005 Overview: No, Advance Directive brochure given to patient at prior appointment. GENERAL OSTEOARTHROSIS 09/22/1999 Lymphedema documented as of this encounter (statuses as of 04/16/2024) Resolved Problems Problem Noted Date Diagnosed Date [...] as of this encounter (statuses as of 04/16/2024) Immunizations Name Administration Dates Next Due Pneumococcal [...] encounter Miscellaneous Notes * Telephone Encounter - Devi Felton MD - 04/16/2024 7:13 AM EDTSigned Prescriptions: Disp Refills traMADol HCl 50 MG Oral Tablet (Ultram) 30 Tab*0 Sig: Take 1 Tablet by mouth every 8 hours as needed for Pain, Severe. Authorizing Provider: DEVI FELTON * Telephone Encounter - [facility] - 04/15/2024 12:40 PM EDT Pending Prescriptions: Disp Refills traMADol HCl 50 MG Oral Tablet [Pharmacy M*30 Tab*0 Sig: Take 1 Tablet by mouth daily as needed for moderate pain * Telephone Encounter - [facility] - 04/15/2024 12:39 PM EDT I have reviewed the patients controlled substance dispensing history in the Prescription Drug Monitoring Program in compliance with the [facility] regulations before prescribing a controlled substance. PDMP checked on 04/15/2024. Pending Prescriptions: Disp Refills traMADol HCl 50 MG Oral Tablet (Ultram) [*30 Tab*0 Last Visit: 03/27/2024 (in office), 03/11/2021 (telemedicine) Next Visit: 06/07/2024 Date medication was last filled: 03/13/24 Date medication is due for refill: 04/11/24 Pharmacy: [id number] [facility] Is this request for a controlled substance? Yes and Urine Drug Screen Not completed Toxicology results: No results found. However, due to the size of the patient record, not all encounters were searched.Please check Results Review for a complete set of results. Please approve if appropriate. Thank you, Belle Grey, PharmD Clinical Pharmacist [facility] ([facility]) 04/15/24 12:39 PM [phone] * Telephone Encounter - Rylan, [facility] - 04/15/2024 10:18 AM EDT Pending Prescriptions: Disp Refills traMADol HCl 50 MG Oral Tablet [Pharmacy M*30 Tab*0 Sig: Take 1Tablet by mouth daily as needed for moderate pain documented in this encounter Plan of Treatment Upcoming Encounters Date Type Department Care Team (Late st Contact Info) Description 04/24/2024 7:05 AM EDT Laboratory Lab Mobile Phlebotomy [facility] [address] [place] [address] [facility], Gml Mobile Home Draw [address] [place] [address] 04/25/2024 6:00 AM EDT Anticoagulation Pharmacy Call Center [facility] [address] [facility] [address] [facility], [facility] [address] [facility] [place] [address] 04/27/2024 1:45 PM EDT Imaging Radiology [address] [place] [address] 06/07/2024 1:00 PM EDT Office Visit Family [facility] [address] [place] [phone] Devi Felton MD [address] [place] [address] 06/29/2024 2:00 PM EDT Office Visit Cardiology, [facility] [address] [place] [address] Devi Caballero PA-C [address] [place] [address] 08/10/2024 12:00 PM EDT Laboratory Laboratory [facility] [place] [address] [place] [phone] Deisy Waynery [address] [place] [address] 08/10/2024 1:00 PM EDT Immunization/Injection Hematology/Oncology Treatment, [place] [address] [place] [phone] Nurse, Med [address] [place] [address] 08/27/2024 3:00 PM EDT Imaging Radiology, [facility] [address] [place] [address] 09/13/2024 9:20 AM EDT Laboratory Laboratory [facility] [place] [address] [facility] [place] [phone] [place] [address] [facility] [place] [address] 09/20/2024 3:00 PM EST Office Visit Hematology/Oncology [facility] [place] [address] [facility] [place] [phone] Caroline Guerrier CRNP [address] [facility] [place] [address] Health Maintenance Due Date Last Done Comments Albumin/Creatinine Ratio 06/02/20232 022, 01/24/2019, 02/08/2018, Additional history exists COVID-19 Vaccine ( season) 2023 01/03/2021, 12/13/2020 DXA Scan 06/02/2024 06/02/2022 (Decl ined), 03/26/2019, 03/21/2017, Additional history exists GFR 08/10/2024 02/08/2024, 01/2024, 09/08/2023, Additional history exists HbA1c 09/27/2024 03/27/2024, 06/14, 01/25/2023, Additional history exists Diabetic Eye Exam 11/16/2024 11/16/2023, , 05/04/2021, Additional history exists CKD HGB USE SMARTSET 49556 02/07/202502/07, 02/08/2024, 10/10/2023, Additional history exists CKD PHOS USE SMARTSET 77032 02/07/2025 03/2 05/2024, 08/05/2023, 05/26/2023, Additional history exists Diabetic Foot Exam 03/27/2025 03/27/2024, 0 06/02/2022, 01/06/2021, Additional history exists DTaP,Tdap,and Td Vaccines (3 - Td or Tdap) 03/27/2034 03/27/2024, 01/21/2014, 06/14/1988 Pneumococcal Vaccine: 65+ Years Completed 08/09/2017, 07/24/2008, 08/12/2003 VITAMIN D LEVEL ONCE IN A LIFETIME-USE SMARTSET# [id number] Completed 11/02/2017, 08/29/2013, 06/20/2012, Additional history exists Influenza Vaccine (FLU shot) Completed 09/08/2023, 07/21/2022, 08/31/2021, Additional history exists GARDASIL-HPV IMMUNIZATION SERIES Aged Out No longer eligible based on patient's age to complete this topic Hepatitis B Aged Out No longer eligi ble based on patient's age to complete this topic MENINGOCOCCAL (MENACTRA/MENVEO) Aged Out No longer eligible based on patient's age to complete this topic Zoster Vaccines Discontinued documented as of this encounter Medical Devices Not on filedocumented as of this encounter Visit Diagnoses Diagnosis Type 2 diabetes mellitus with diabetic nephropathy, with long-term current use of insulin (HCC) documented in this encounter Care Teams Painting Instructor Relationship Specialty Start Date End Date Devi Felton MD [address] [place] [address] PCP - General 12/30/1997 documented as of this encounter
--- OUTSIDE RECORDS SUMMARY | 2024-05-25 14:31 | External Medical Summary | Summary of Care ---
Author Name Unknown Organization [facility] Address [address] [place] [address] Phone [phone] Care Team Providers Care Coat Operator Insulator Name Role Phone Christiano Felton MD Primary Care Provider [phone] Reason for Visit * Reason Onset Date Comments Mycode Lab Reorder 04/16/2024 Encounter Details Date Type Department Care Team (Late st Contact Info) Description 04/16/2024 Orders Only Outcomes Research Department [address], [place] [phone] Bethany Dooley N, CHRA [address] [place] [address] MyCode Research Other*[id number]* Allergies Active Allergy Reactions Criticality Noted Date [...] other day. 30 Cap 1 12/12/2020 Active Accu-Chek Lennie Plus In Vitro Strip (Glucose Blood) USE STRIP TO CHECK GLUCOSE 2 TO 3 TIMES DAILY FOR UNCONTROLLED DIABETES. 300 Strip 3 03/25/2023 Active Pantoprazole Sodium 40 MG Oral Tablet [...] before bedtime 180 Tablet 2 07/31/2023 Active BD Insulin Syringe U-500 31G X 6MM 0.5 ML (Insulin Syringe/Needle U-500)Indications:Ty pe 2 diabetes mellitus with stage 1 chronic kidney disease, unspecified whether half-way insulin use (HCC) Use as directed. Use [...] (Jantoven)Indication s:History of pulmonary embolism,Anticoagula tion management encounter,detention current use of anticoagulant therapy TAKE ONE [...] for Pain, Severe. 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 documented in this encounter Plan of Treatment Upcoming Encounters Date Type Department Care Team (Late st Contact Info) Description 04/24/2024 7:05 AM EDT Laboratory Lab Mobile Phlebotomy [facility] [address] [place] [address] Mvmg, Gml Mobile Home Draw [address] [place] [address] 04/25/2024 6:00 AM EDT Anticoagulation Pharmacy Call Center [address] [place] [address] Ccps, [facility] [place] [address] [place] [address] 04/27/2024 1:45 PM EDT Imaging Radiology [facility] 1st [facility], [address] [place] [address] 06/07/2024 1:00 PM EDT Office Visit Family [address] [facility] [phone] Christiano Felton MD [address] [place] [address] 06/29/2024 2:00 PM EDT Office Visit Cardiology, [facility] [address] [place] [address] Christiano Caballero PA-C [address] [facility] [address] 08/10/2024 12:00 PM EDT Laboratory Laboratory [facility] [address] [place] [phone] Deisy [place] [address] [place] [address] 08/10/2024 1:00 PM EDT Immunization/Injection Hematology/Oncology Treatment, [place] [address] [place], [place] [phone] Nurse, Med [address] [place] [address] 08/27/2024 3:00 PM EDT Imaging Radiology, [place] [phone] [facility] [place] [address] 09/13/2024 9:20 AM EDT Laboratory Laboratory [facility] [place] [address] [place] [phone] Deisy Wayne [address] [place] [address] 09/20/2024 3:00 PM EST Office Visit Hematology/Oncology [facility] [place] [address] [place] [phone] Caroline Guerrier CRNP 400 [facility] [place] [phone] Scheduled Orders Name Type Priority Associated Diagnoses Orde r Schedule MYCODE SUBSEQUENT ADULT Lab Routine MyCode Research Other*[id number] Every 6 Months for 2 Occurrences starting 04/16/2024 until 05/06/2025 Health Maintenance Due Date Last Done Comments Albumin/Creatinine Ratio 06/02/2023 022, 01/24/2019, 02/08/2018, Additional history exists COVID-19 Vaccine ( season) 2023 01/03/2021, 12/13/2020 DXA Scan 06/02/2024 06/02/2022 (Decl ined), 03/26/2019, 03/21/2017, Additional history exists GFR 08/10/2024 02/08/2024, 01/2024, 09/08/2023, Additional history exists HbA1c 09/27/2024 03/27/2024, 0804/2023, 01/25/2023, Additional history exists Diabetic Eye Exam 11/16/2024 11/16/2023, , 05/04/2021, Additional history exists CKD HGB USE SMARTSET 96579 02/07/202502/07, 02/08/2024, 10/10/2023, Additional history exists CKD PHOS USE SMARTSET 47470 02/07/202501/13, 08/05/2023, 05/26/2023, Additional history exists Diabetic Foot Exam 03/27/2025 03/27/2024, 0 06/02/2022, 01/06/2021, Additional history exists DTaP,Tdap,and Td Vaccines (3 - Td or Tdap) 03/27/2034 03/27/2024, 01/21/2014, 06/14/1988 Pneumococcal Vaccine: 65+ Years Completed 08/09/2017, 07/24/2008, 08/12/2003 VITAMIN D LEVEL ONCE IN A LIFETIME-USE SMARTSET# [id number] Completed 11/02/2017, 08/29/2013, 06/20/2012, Additional history exists [...] as of this encounter Visit Diagnoses Diagnosis MyCode Research Other*[id number]- Primary documented in this encounter Care Teams Coat Operator Insulator Relationship Specialty Start Date End Date Christiano Felton MD [address] [place] [address] PCP - General 12/30/1997 documented as of this encounter
--- OUTSIDE RECORDS SUMMARY | 2024-05-25 14:31 | External Medical Summary ---
Author Name Unknown Address Unknown Organization K0G[facility] [place] [address] Laboratory Report Ordering Provider Test Date Status MAXIMILIAN BRINK 05/08/2024 09:07:00 Final Warfarin Therapy
INR: 2 .0-3.0 conventional anticoagulation
INR: 2.5- 3.5 high intensity anticoagulation Observation Date Value Abnormality Reference (Units ) Status PT 05/08/2024 09:07:00 21.5 Above high normal 11 .6-15.2 (seconds) Final INR 05/08/2024 09:07:00 1.9 Above high normal 0. 8-1.2 Final Performing Location LABORATORY [facility] STEVE [address] [place] [address]
--- OUTSIDE RECORDS SUMMARY | 2024-05-25 14:31 | External Medical Summary ---
Author Name Unknown Address Unknown Organization K01:[facility] [place] [address] [facility] [place] [address] Laboratory Report Ordering Provider Test Date Status PRIYA TERESA 04/24/2024 08:59:00 Final Observation Date Value Abnormality Reference (Units ) Status Triglyceride 04/24/2024 08:59:00 168 <=174 ( mg/dL) Final Triglyceride Reference Range s (mg/dL):
<150 Acceptable
150-174 Borderline high
175-499 High
>=500 Very high Cholesterol 04/24/2024 08:59:00 133 <200 (mg /dL) Final Total Cholesterol Reference Ranges (mg/dL):
<200 Desirable
200-239 Borderline high
>=240 High HDL 04/24/2024 08:59:00 29 Below low normal >49 (mg/dL) Final HDL Cholesterol Reference Ra nges (mg/dL):
>=60 High (Desirable)
<50 Low (Undesirable) For Females
<40 Low (Undesirable) For Males NON-HDL CHOLESTEROL 04/24/2024 08:59:00 104 <=159 (mg/dL) Final Non-HDL Cholesterol Referenc e Range (mg/dL):
<100 Target level for high risk ASCVD patient
<130 Optimal for general population
130-159 Near optimal for general population
160-189 Borderline High
190-219 High
>=220 Very High LDL, (calculated) 04/24/2024 08:59:00 70 <= 129 (mg/dL) Final LDL Cholesterol Reference Ra nges (mg/dL):
<70 Target level for high risk ASCVD patient
<100 Optimal for general population
100-129 Near optimal for general population
130-159 Borderline high
160-189 High
>=190 Very high Performing Location [facility] [place] [address] [facility] [address]
--- OUTSIDE RECORDS SUMMARY | 2024-05-25 14:31 | External Medical Summary | Summary of Care ---
Author Name Unknown Organization [facility] Address [address] [facility] [place] [address] Phone [phone] Care Team Providers Care Distilling Department Supervisor Name Role Phone Christiano Felton MD Primary Care Provider [phone] Reason for Visit * Reason Comments Dosage Adjustment Via Phone (anticoag Cl inic) Encounter Details Date Type Department Care Team (Latest Contact Info) Description 05/09/2024 6:00 AM EDT Anticoagulation Centralized Clinical Pharmacy Services, [place] [address] [place] [address] [facility] 58 60 [facility] [place] [address] History of pulmonary embolism*; Typical atrial flutter (HCC) Allergies Active Allergy Reactions Criticality Noted Date Comments Adhesive Tape 07/22/2017 Penicillins 09/07/1999 Difficulty breathing Rosiglitazone Maleate 12/25/2004 possible relation to DVT, PE's Tramadol Hcl Hives 10/20/2023 documented as of this encounter (statuses as of 05/09/2024) Medications Medication Sig Dispensed Refills Start Date [...] stage 1 chronic kidney disease, unspecified whether terminal manager insulin use ([facility]) Use as directed. Use for insulin injections twice daily DxE11.29 200 Each 3 08/24/2023 Active Ferrous Sulfate 325 (65 Fe) MG Oral Tablet (Feosol)Indications: Iron deficiency anemia, unspecified iron deficiency anemia type Take one tab by mouth every day 90 Tablet 3 09/20/2023 Active Furosemide 40 MG Oral Tablet (Lasix)Indications:H eart failure, diastolic, due to HTN ([facility]),Chronic acquired lymphedema TAKE 1 TABLET BY MOUTH TWICE DAILY every morning and before bedtime 180 Tablet 3 11/14/2023 Active Metoprolol Tartrate 25 MG Oral Tablet (Lopressor)Indicatio ns:Paroxysmal atrial flutter ([facility]),Aortic valve stenosis, etiology of cardiac valve disease unspecified,HTN, goal below 140/90 Take 0.5 Tablets by mouth in the morning and 0.5 Tablets before bedtime. 90 Tablet 3 11/30/2023 Active Insulin Glargine 100 UNIT/ML Subcutaneous Solution (Lantus)Indications: Type 2 diabetes mellitus with hemoglobin A1c goal of less than 8.0% ([facility]) INJECT 36 UNITS UNDER THE SKIN IN THE MORNING AND 42 UNITS IN THE EVENING 90 mL 1 12/07/2023 Active Pregabalin 150 MG Oral Capsule (Lyrica)Indications: Type 2 diabetes mellitus with diabetic nephropathy, with long-term current use of insulin ([facility]) Take 1 Capsule by mouth in the morning and 1 Capsule before bedtime. 60 Capsule 11 01/19/2024 Active Warfarin Sodium 5 MG Oral Tablet (Jantoven)Indication s:History of pulmonary embolism,Anticoagula tion management encounter,care home current use of anticoagulant therapy TAKE ONE TO ONE and 1/2 TABLETs BY MOUTH ONCE DAILY INSTRUCTED BY [facility]AD[facility]IC 135 Tablet 1 02/27/2024 Active Escitalopram Oxalate 10 MG Oral Tablet (Lexapro)Indications :Current moderate episode of major depressive disorder, unspecified whether recurrent ([facility]) 1/2 tab daily x 7 days then [...] as of this encounter (statuses as of 05/09/2024) Active Problems Problem Noted Date Diagnosed Date [...] Obesity Taxonomy ICD-10 update of inactive term intermediate frame tender current use of anticoagulant therapy 1 11/25/2008 Overview: ICD-10 update of inactive term Primary localized osteoarthrosis, lower leg 09/15 Diabetic polyneuropathy 07/13/2006 ADVANCE DIRECTIVE INFORMATION 04/16/2005 Overview: No, Advance Directive brochure given to patient at prior appointment. GENERAL OSTEOARTHROSIS 09/22/1999 Lymphedema documented as of this encounter (statuses as of 05/09/2024) Resolved Problems Problem Noted Date Diagnosed Date [...] as of this encounter (statuses as of 05/09/2024) Immunizations Name Administration Dates Next Due Pneumococcal [...] as of this encounter Progress Notes * Fabrice Taveras CPhT - 05/09/2024 11:19 AM EDT Contacts Type Contact Phone/Fax 05/09/2024 11:17 AM EDT Phone (Outgoing) Gloria Felix (Self) [phone] (H) Spoke to Patient Subjective Patient Findings Negatives: Signs/symptoms of thrombosis, Signs/symptoms of bleeding, Change in health, Change in alcohol use, Change in activity, Upcoming invasive procedure, Missed doses, Extra doses, Change in medications, Change in diet/appetite, Bruising Advised patient to contact Anticoagulation Clinic if any unusual bruising or bleeding, recent illness, changes in medication, or questions/concerns. PT/INR results, Coumadin dose instructions, and next PT/INR date communicated as noted by Pharmacist: Yes Fabrice Taveras CPhT 05/09/2024, 11:19 AM * Kristyn Cross RP - 05/09/2024 8:19 AM EDT Coumadin Clinic (region specific) Objective Current Warfarin Dose As of 05/09/2024 Warfarin maintenance plan: 2.5 mg (5 mg x 0.5) every Mon; 5 mg (5 mg x 1) all other days INR Result As of 05/09/2024 INR goal: 2.0-3.0 INR used for dosin.9 (05/08/2024) Assessment & Plan Warfarin Plan As of 05/09/2024 Full warfarin instructions: 05/09: 10 mg; Otherwise 2.5 mg every Mon; 5 mg all other days Next INR check: 05/22/2024 Repeat PT/INR in 2 week(s) Weekly dose: not changed Additional Dosing Information: Description GML MTuTh Takes in AM Tech to contact patient with dose instructions as noted. Kristyn Cross RPh 05/09/2024, 8:19 AM documented in this encounter Plan of Treatment Upcoming Encounters Date Type Department Care Team (Late st Contact Info) Description 05/22/2024 7:00 AM EDT Laboratory Lab Mobile Phlebotomy [facility] [address] [place] [address] [facility], Gml Mobile Home Draw [address] [place] [address] 06/07/2024 1:00 PM EDT Office [facility] [address] [facility] [phone] Christiano Felton MD [address] [place] [facility] [place] [address] 06/29/2024 2:00 PM EDT Office Visit Cardiology, [facility] [address] [place] [address] Christiano Caballero PA-C [address] [place] [address] 08/10/2024 12:00 PM EDT Laboratory Laboratory [facility] [place] [address] [place] [phone] Rosana [facility] [address] [facility] [place] [address] 08/10/2024 1:00 PM EDT Immunization/Injecti on Hematology/Oncology Treatment, [place] [address] [place] [phone] Nurse, Med 4 [address] [place] [address] 08/27/2024 3:00 PM EDT Imaging Radiology, [facility] [address] [facility] [place] [address] 09/13/2024 9:20 AM EDT Laboratory Laboratory [facility] [place] [address] [place] [phone] Deisy [facility] [address] [facility] [place] [address] 09/20/2024 3:00 PM EST Office Visit Hematology/Oncology [facility] [place] [address] [place] [address] Caroline Guerrier CRNP [address] [place] [address] Health Maintenance Due Date Last Done Comments Depression Monitoring 08/04/2021 08/04/2020 Albumin/Creatinine Ratio 06/02/2023 022, 01/24/2019, 02/08/2018, Additional history exists COVID-19 Vaccine (3 - 2022- season) 2023 01/03/2021, 12/13/2020 DXA Scan 06/02/2024 06/02/2022 (Decl ined), 03/26/2019, 03/21/2017, Additional history exists GFR 08/10/2024 02/08/2024, 01/2024, 09/08/2023, Additional history exists HbA1c 09/27/2024 03/27/2024, 06/14, 01/25/2023, Additional history exists Diabetic Eye Exam 11/16/2024 11/16/2023, , 05/04/2021, Additional history exists CKD HGB USE SMARTSET 63292 02/07/202502/07, 02/08/2024, 10/10/2023, Additional history exists CKD PHOS USE SMARTSET 91082 02/07/202501/13, 08/05/2023, 05/26/2023, Additional history exists Diabetic Foot Exam 03/27/2025 03/27/2024, 0 06/02/2022, 01/06/2021, Additional history exists DTaP,Tdap,and Td Vaccines (3 - Td or Tdap) 03/27/2034 03/27/2024, 01/21/2014, 06/14/1988 Pneumococcal Vaccine: 65+ Years Completed 08/09/2017, 07/24/2008, 08/12/2003 VITAMIN D LEVEL ONCE IN A LIFETIME-USE SMARTSET# [id number] Completed 11/02/2017, 08/29/2013, 06/20/2012, Additional history exists [...] flutter documented in this encounter Care Teams Distilling Department Supervisor Relationship Specialty Start Date End Date Christiano Felton MD [address] [place] [address] PCP - General 12/30/1997 documented as of this encounter
--- OUTSIDE RECORDS SUMMARY | 2024-05-25 14:31 | External Medical Summary | Summary of Care ---
Author Name Unknown Organization [facility] Address [address] [place] [address] Phone [phone] Care Team Providers Care Chef & Owner Name Role Phone Devi Felton MD Primary Care Provider [phone] Reason for Visit * Reason Comments eRx-Medication Refill Encounter Details Date Type Department Care Team (Late st Contact Info) Description 04/17/2024 Refill [facility] [address] [place] [address] Devi Felton MD [address] [place] [address] Encounter for long-term (current) use of medications* Allergies Active Allergy Reactions Criticality Noted Date Comments Adhesive Tape 07/22/2017 Penicillins 09/07/1999 Difficulty breathing Rosiglitazone Maleate 12/25/2004 possible relation to DVT, PE's Tramadol Hcl Hives 10/20/2023 documented as of this encounter (statuses as of 04/18/2024) Medications Medication Sig Dispensed Refills Start Date End Date Status VOLTAREN 1 % TD GELIndications:Gen eralized osteoarthritis Apply to affected area(knees) 4 grams up to 4 times daily 100 g 5 3 Active Vitamin B-12 1000 MCG Sublingual Tablet SublingualIndicati ons:B12 deficiency Take 1 Tab by mouth daily. 90 Tab 1 1 Active Vitamin D3 50 MCG (2000 UT) Oral Capsule Take 1 Cap by mouth every other day. 30 Cap 1 1 Active Pantoprazole Sodium 40 MG Oral Tablet [...] stage 1 chronic kidney disease, unspecified whether oil heaterman insulin use (HCC) Use as directed. Use [...] hemoglobin A1c goal of less than 8.0% ([facility]) INJECT 36 UNITS UNDER THE SKIN IN THE MORNING AND 42 UNITS IN THE EVENING 90 mL 1 4 Active Pregabalin 150 MG Oral Capsule (Lyrica)Indication s:Type 2 diabetes mellitus with diabetic nephropathy, with long-term current use of insulin ([facility]) Take 1 Capsule by mouth in the morning and 1 Capsule before bedtime. 60 Capsule 11 4 Active Warfarin Sodium 5 MG Oral Tablet (Jantoven)Indicati ons:History of pulmonary embolism,Anticoagu lation management encounter,halfway current use of anticoagulant therapy [...] for Pain, Severe. 30 Tablet 4 Active Accu-Chek Lennie Plus In Vitro Strip (Glucose Blood) USE STRIP TO CHECK GLUCOSE 2 TO 3 TIMES A DAY FOR UNCONTROLLED DIABETES 300 Strip 1 4 Active Accu-Chek Lennie Plus In Vitro Strip (Glucose Blood) USE STRIP TO CHECK GLUCOSE 2 TO 3 TIMES DAILY FOR UNCONTROLLED DIABETES. 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 GENERAL OSTEOARTHROSIS 09/22/1999 Lymphedema documented as of this encounter (statuses as of 04/18/2024) Resolved Problems Problem Noted Date Diagnosed Date [...] as of this encounter (statuses as of 04/18/2024) Immunizations Name Administration Dates Next Due Pneumococcal [...] encounter Miscellaneous Notes * Telephone Encounter - Jose Powers RP - 04/18/2024 11:02 AM EDT Signed Prescriptions: Disp Refills Accu-Chek Lennie Plus In Vitro Strip (Gluco*300 St*1 Sig: USE STRIP TO CHECK GLUCOSE 2 TO 3 TIMES A DAY FOR UNCONTROLLED DIABETESAuthorizing Provider: DEVI FELTON User: JOSE POWERS * Telephone Encounter - Jose Powers RP - 04/18/2024 11:00 AM EDT Lipid panel ordered for patient to get with next lab appt. Refills approved. Thank you, Jose Powers, PharmD Clinical Pharmacist Centralized Clinical Pharmacy Services ([facility]) 04/18/24 11:02 AM [phone] documented in this encounter Plan of Treatment Upcoming Encounters Date Type Department Care Team (Late st Contact Info) Description 04/24/2024 7:05 AM EDT Laboratory Lab Mobile Phlebotomy [facility] [address] [place] [address] Mv[facility], Gml Mobile Home Draw [address] [place] [address] 04/25/2024 6:00 AM EDT Anticoagulation Centralized Clinical Pharmacy Services, [place]ino Michael [address] [place] [address] [place] [address] [facility], [place] [address] [address] [facility] [place] [address] 04/27/2024 1:45 PM EDT Imaging Radiology [address] [facility] [place] [address] 06/07/2024 1:00 PM EDT Office Visit [facility] [address] [place] [phone] Devi Felton MD [address] [place] [address] 06/29/2024 2:00 PM EDT Office Visit Cardiology, [facility] 132 [facility] [place] [address] Devi Caballero PA-C [address] [place] [address] 08/10/2024 12:00 PM EDT [facility] [place] [address] [place] [phone] [address] [place] [place] [address] 08/10/2024 1:00 PM EDT Immunization/Injection Hematology/Oncology Treatment, [place] [address] [facility] [address] [address] [place] [phone] Nurse, Med 4 200 [facility] [place] [address] 08/27/2024 3:00 PM EDT Imaging Radiology, [facility] [address] [facility] [place] [address] 09/13/2024 9:20 AM EDT Laboratory Laboratory [facility] [place] [address] [facility] [place] [phone] [facility] [address] [facility] [place] [address] 09/20/2024 3:00 PM EST Office Visit Hematology/Oncology [facility] [place] [address] [facility] [place] [phone] Caroline Guerrier, OSCAR [address] [facility] [place] [id number] Scheduled Orders Name Type Priority Associated Diagnoses Orde r Schedule LIPID PANEL WITH DIRECT LDL IF TG IS HIGH Lab Routine Encounter for long-term (current) use of medications Expected: 04/18/2024 (Approximate), Expires: 04/18/2025 Health Maintenance Due Date Last Done Comments Albumin/Creatinine Ratio 06/02/20232 022, 01/24/2019, 02/08/2018, Additional history exists COVID-19 Vaccine ( season) 2023 01/03/2021, 12/13/2020 DXA Scan 06/02/2024 06/02/2022 (Decl ined), 03/26/2019, 03/21/2017, Additional history exists GFR 08/10/2024 02/08/2024, 01/0 01/2024, 09/08/2023, Additional history exists HbA1c 09/27/2024 03/27/2024, 06/14, 01/25/2023, Additional history exists Diabetic Eye Exam 11/16/2024 11/16/2023, , 05/04/2021, Additional history exists CKD HGB USE SMARTSET 05015 02/07/202502/07, 02/08/2024, 10/10/2023, Additional history exists CKD PHOS USE SMARTSET 81982 02/07/202501/13, 08/05/2023, 05/26/2023, Additional history exists Diabetic Foot Exam 03/27/2025 03/27/2024, 0 06/02/2022, 01/06/2021, Additional history exists DTaP,Tdap,and Td Vaccines (3 - Td or Tdap) 03/27/2034 03/27/2024, 01/21/2014, 06/14/1988 Pneumococcal Vaccine: 65+ Years Completed 08/09/2017, 07/24/2008, 08/12/2003 VITAMIN D LEVEL ONCE IN A LIFETIME-USE SMARTSET# [id number] Completed 11/02/2017, 08/29/2013, 06/20/2012, Additional history exists [...] as of this encounter Visit Diagnoses Diagnosis Encounter for long-term (current) use of medications- Primary Encounter for long-term (current) use of other medications documented in this encounter Care Teams Chef & Owner Relationship Specialty Start Date End Date Devi Felton MD [address] [place] [address] PCP - General 12/30/1997 documented as of this encounter
--- OUTSIDE RECORDS SUMMARY | 2024-05-25 14:31 | External Medical Summary | Summary of Care ---
Author Name Unknown Organization [facility] Address [address] [facility] [place] [address] Phone [phone] Care Team Providers Care Injection Molding Machine Tender Name Role Phone Christiano Felton MD Primary Care Provider Encounter Details Date Type Department Care Team (Late st Contact Info) Description 05/08/2024 Orders Only Lab [facility] [address] [facility] [address] Kristyn Cross, [facility] [address] [place] [address] long term care pharmacist current use of anticoagulant therapy* Allergies Active Allergy Reactions Criticality Noted Date Comments Adhesive Tape 07/22/2017 Penicillins 09/07/1999 Difficulty breathing Rosiglitazone Maleate 12/25/2004 possible relation to DVT, PE's Tramadol Hcl Hives 10/20/2023 documented as of this encounter (statuses as of 05/08/2024) Medications Medication Sig Dispensed Refills Start Date [...] stage 1 chronic kidney disease, unspecified whether care home insulin use (HCC) Use as directed. [...] MG Oral Tablet (Lopressor)Indicatio ns:Paroxysmal atrial flutter ([facility]),Aortic valve stenosis, etiology of cardiac valve disease unspecified,HTN, goal below 140/90 Take 0.5 Tablets by mouth in the morning and 0.5 Tablets before bedtime. 90 Tablet 3 11/30/2023 Active Insulin Glargine 100 UNIT/ML Subcutaneous Solution (Lantus)Indications: Type 2 diabetes mellitus with hemoglobin A1c goal of less than 8.0% ([facility]) INJECT 36 UNITS UNDER THE SKIN IN THE MORNING AND 42 UNITS IN THE EVENING 90 mL 1 12/07/2023 Active Pregabalin 150 MG Oral Capsule (Lyrica)Indications: Type 2 diabetes mellitus with diabetic nephropathy, with long-term current use of insulin ([facility]) Take 1 Capsule by mouth in the morning and 1 Capsule before bedtime. 60 Capsule 11 01/19/2024 Active Warfarin Sodium 5 MG Oral Tablet (Jantoven)Indication s:History of pulmonary embolism,Anticoagula tion management encounter,long term care pharmacist current use of anticoagulant therapy TAKE ONE [...] as of this encounter (statuses as of 05/08/2024) Active Problems Problem Noted Date Diagnosed Date [...] update of inactive term long term care pharmacist current use of anticoagulant therapy 1 11/25/2008 Overview: ICD-10 update of inactive term Primary localized osteoarthrosis, lower leg 09/15 Diabetic polyneuropathy 07/13/2006 ADVANCE DIRECTIVE INFORMATION 04/16/2005 Overview: No, Advance Directive brochure given to patient at prior appointment. GENERAL OSTEOARTHROSIS 09/22/1999 Lymphedema documented as of this encounter (statuses as of 05/08/2024) Resolved Problems Problem Noted Date Diagnosed Date [...] as of this encounter (statuses as of 05/08/2024) Immunizations Name Administration Dates Next Due Pneumococcal [...] Department Care Team (Latest Contact Info) Description 05/08/2024 7:10 AM EDT Laboratory Lab Mobile Phlebotomy [facility] [address] [place] [address] Mv[facility], Gml Mobile Home Draw [address] [place] [address] senior care current use of anticoagulant therapy 05/09/2024 6:00 AM EDT Anticoagulation Centralized Clinical Pharmacy Services, [place] Michael [address] [place] [address] [place] [address] [place] [address] 60 [facility] [place] [address] 06/07/2024 1:00 PM EDT Office Visit [facility] [address] [place] [facility] [place] [phone] Christiano Felton MD [address] [place] [facility] [address] 06/29/2024 2:00 PM EDT Office Visit Cardiology, [facility] [address] [facility] [address] Christiano Caballero PA-C [address] [facility] [address] 08/10/2024 12:00 PM EDT Laboratory [facility] [place] [address] [place] [phone] Deisy [facility] [address] [facility] [place] [address] 08/10/2024 1:00 PM EDT Immunization/Injection Hematology/Oncolo gy Treatment, [place] [address] [facility] [address] [address] [place], [place] [phone] Nurse, Med 4 [address] [place] [address] 08/27/2024 3:00 PM EDT Imaging Radiology, [address] [place] [address] 09/13/2024 9:20 AM EDT Laboratory Laboratory [place] [address] [place] [phone] [facility] [address] [facility] [place] [address] 09/20/2024 3:00 PM EST Office Visit Hematology/Oncolo gy [facility] Rosana [place] [address] [place] [phone] Caroline Guerrier CRNP [address] [place], [place] [address] [id number] Scheduled Orders Name Type Priority Associated Diagnoses Orde r Schedule PT INR Lab Routine long term care pharmacist current use of anticoagulant therapy Expected: 05/08/2024, Expires: 05/08/2025 Health Maintenance Due Date Last Done Comments [...] Additional history exists CKD HGB USE SMARTSET 86251 02/07/202502/07, 02/08/2024, 10/10/2023, Additional history exists CKD PHOS USE SMARTSET 84027 02/07/202501/13, 08/05/2023, 05/26/2023, Additional history exists Diabetic Foot Exam 03/27/2025 03/27/2024, 0 06/02/2022, 01/06/2021, Additional history exists DTaP,Tdap,and Td Vaccines (3 - Td or Tdap) 03/27/2034 03/27/2024, 01/21/2014, 06/14/1988 Pneumococcal Vaccine: 65+ Years Completed 08/09/2017, 07/24/2008, 08/12/2003 VITAMIN D LEVEL ONCE IN A LIFETIME-USE SMARTSET# [id number] Completed 11/02/2017, 08/29/2013, 06/20/2012, Additional history exists [...] as of this encounter Visit Diagnoses Diagnosis long term care pharmacist current use of anticoagulant therapy senior care current use of anticoagulant therapy- Primary documented in this encounter Care Teams Injection Molding Machine Tender Relationship Specialty Start Date End Date Christiano Felton MD [address] [place] [address] PCP - General 12/30/1997 documented as of this encounter
--- OUTSIDE RECORDS SUMMARY | 2024-05-25 14:31 | External Medical Summary | Summary of Care ---
Author Name Unknown Organization [facility] Address [address] [place] [address] Phone [phone] Care Team Providers Care Social Welfare Administrator Name Role Phone Christiano Felton MD Primary Care Provider [phone] Encounter Details Date Type Department Care Team (Late st Contact Info) Description 05/10/2024 Orders Only [facility] [address] [place] [address] Christiano Felton MD [address] [place] [address] Allergies Active Allergy Reactions Criticality Noted Date Comments Adhesive Tape 07/22/2017 Penicillins 09/07/1999 Difficulty breathing Rosiglitazone Maleate 12/25/2004 possible relation to DVT, PE's Tramadol Hcl Hives 10/20/2023 documented as of this encounter (statuses as of 05/10/2024) Medications Medication Sig Dispensed Refills Start Date [...] stage 1 chronic kidney disease, unspecified whether tank terminal gauger insulin use (HCC) Use as directed. Use [...] hemoglobin A1c goal of less than 8.0% ([facility]) INJECT 36 UNITS UNDER THE SKIN IN THE MORNING AND 42 UNITS IN THE EVENING 90 mL 1 12/07/2023 Active Pregabalin 150 MG Oral Capsule (Lyrica)Indications: Type 2 diabetes mellitus with diabetic nephropathy, with long-term current use of insulin ([facility]) Take 1 Capsule by mouth in the morning and 1 Capsule before bedtime. 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 GENERAL OSTEOARTHROSIS 09/22/1999 Lymphedema documented as of this encounter (statuses as of 05/10/2024) Resolved Problems Problem Noted Date Diagnosed Date [...] as of this encounter (statuses as of 05/10/2024) Immunizations Name Administration Dates Next Due Pneumococcal [...] AM EDT Laboratory Lab [facility] [address] [place] [address] [address] [facility], [facility] Mobile Home Draw [address] [place] [address] [address] 05/23/2024 6:00 AM EDT Anticoagulation Centralized Clinical Pharmacy Services, Gino Michael [address] [place] [address] [place] [address] [facility] 58 60 [facility] [place] [address] 06/07/2024 1:00 PM EDT Office Visit [facility] [address] [facility], [place] [phone] Christiano Felton MD [address] [place] [address] 06/29/2024 2:00 PM EDT Office Visit Cardiology, [facility] [address] [place] [address] Christiano Caballero, PA-C [address] [place] [address] 08/10/2024 12:00 PM EDT Laboratory Laboratory [facility] [address] [place] [phone] Deisy Wayne [address] [facility] [place] [address] 08/10/2024 1:00 PM EDT Immunization/Injection Hematology/Oncology Treatment, [place] [address] [place] [phone] Nurse, Med 4 [address] [place] [address] 08/27/2024 3:00 PM EDT Imaging Radiology, [place] [phone] [facility] [place] [address] 09/13/2024 9:20 AM EDT [facility] [place] [address] [place] [phone] Deisy Wayne [address] [place] [address] 09/20/2024 3:00 PM EST Office Visit Hematology/Oncology [facility] [place] [address] [place] [phone] Caroline Guerrier CRNP [address] [place] [address] [place] [address] Health Maintenance Due Date Last Done Comments Depression Monitoring 08/04/2021 08/04/2020 Albumin/Creatinine Ratio 06/02/2023 022, 01/24/2019, 02/08/2018, Additional history exists COVID-19 Vaccine ( - season) 2023 01/03/2021, 12/13/2020 DXA Scan 06/02/2024 06/02/2022 (Decl ined), 03/26/2019, 03/21/2017, Additional history exists GFR 08/10/2024 02/08/2024, 0101/2024, 09/08/2023, Additional history exists HbA1c 09/27/2024 03/27/2024, 06/14, 01/25/2023, Additional history exists CKD HGB USE SMARTSET 53980 02/07/202502/07, 02/08/2024, 10/10/2023, Additional history exists CKD PHOS USE SMARTSET 07402 02/07/202501/13, 08/05/2023, 05/26/2023, Additional history exists Diabetic Foot Exam 03/27/2025 03/27/2024, 0 06/02/2022, 01/06/2021, Additional history exists Diabetic Eye Exam 05/10/2025 05/08/2024, , 05/07/2022, Additional history exists DTaP,Tdap,and Td Vaccines (3 - Td or Tdap) 03/27/2034 03/27/2024, 01/21/2014, 06/14/1988 Pneumococcal Vaccine: 65+ Years Completed 08/09/2017, 07/24/2008, 08/12/2003 VITAMIN D LEVEL ONCE IN A LIFETIME-USE SMARTSET# [id number] Completed 11/02/2017, 08/29/2013, 06/20/2012, Additional history exists [...] Not on filedocumented as of this encounter Procedures Procedure Name Priority Date/Time Associated Diagnosis Comments DIABETIC EYE EXAM Routine 05/08/2024 documented in this encounter Results * DIABETIC EYE EXAM (05/08/2024) 05/08/2024 History Per Patient OTHER OUTSIDE LAB (SEE SCANNED REPORT) documented in this encounter Care Teams Social Welfare Administrator Relationship Specialty Start Date End Date Christiano Felton MD [address] [place] [address] PCP - General 12/30/1997 documented as of this encounter
--- OUTSIDE RECORDS SUMMARY | 2024-05-25 14:31 | External Medical Summary | Summary of Care ---
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 Use [...] MG Oral Tablet (Lopressor)Indicatio ns:Paroxysmal atrial flutter ([facility]),Aortic valve stenosis, etiology of cardiac valve disease unspecified,HTN, goal below 140/90 Take 0.5 Tablets by mouth in the morning and 0.5 Tablets before bedtime. 90 Tablet 3 11/30/2023 Active Insulin Glargine 100 UNIT/ML Subcutaneous Solution (Lantus)Indications: Type 2 diabetes mellitus with hemoglobin A1c goal of less than 8.0% ([facility]) INJECT 36 UNITS UNDER THE SKIN IN THE MORNING AND 42 UNITS IN THE EVENING 90 mL 1 12/07/2023 Active Pregabalin 150 MG Oral Capsule (Lyrica)Indications: Type 2 diabetes mellitus with diabetic nephropathy, with long-term current use of insulin ([facility]) Take 1 Capsule by mouth in the morning and 1 Capsule before bedtime. 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 GENERAL OSTEOARTHROSIS 09/22/1999 Lymphedema documented as of this encounter (statuses as of 04/24/2024) Resolved Problems Problem Noted Date Diagnosed Date [...] as of this encounter (statuses as of 04/24/2024) Immunizations Name Administration Dates Next Due Pneumococcal [...] Department Care Team (Latest Contact Info) Description 04/24/2024 7:05 AM EDT Laboratory Lab [facility] [address] [place] [email or web address] [place] [address] [facility], [facility] Mobile Home Draw 25[address] [facility] [place] [address] Encounter for long-term (current) use of medications; USP current use of anticoagulant therapy 04/25/2024 6:00 AM EDT Anticoagulation Centralized Clinical Pharmacy Services, Gino Michael [address] [place] [address] [place] [address] [place] [address] 60 [facility] [place] [address] 04/27/2024 1:45 PM EDT Imaging Radiology [facility] 1st [facility] [address] [facility] [place] [address] 06/07/2024 1:00 PM EDT Office Visit [facility] [address] [place] [phone] Christiano Felton MD [address] [place] [address] 06/29/2024 2:00 PM EDT Office Visit Cardiology, [facility] [address] [place] [address] Christiano Caballero PA-C [address] [place] [address] 08/10/2024 12:00 PM EDT Laboratory Laboratory [facility] [place] [address] [place] [phone] [facility] Lab [facility] [address] [place] [address] 08/10/2024 1:00 PM EDT Immunization/Injection Hematology/Oncolo gy Treatment, [place] [address] [place] [phone] Nurse, Med [address] [place] [address] 08/27/2024 3:00 PM EDT Imaging Radiology, [place] [address] 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 Expected: 04/24/2024, Expires: 04/24/2025 Health Maintenance Due Date Last Done Comments [...] Additional history exists CKD HGB USE SMARTSET 21602 02/07/202502/07, 02/08/2024, 10/10/2023, Additional history exists CKD PHOS USE SMARTSET 71536 02/07/202501/13, 08/05/2023, 05/26/2023, Additional history exists Diabetic Foot Exam 03/27/2025 03/27/2024, 0 06/02/2022, 01/06/2021, Additional history exists DTaP,Tdap,and Td Vaccines (3 - Td or Tdap) 03/27/2034 03/27/2024, 01/21/2014, 06/14/1988 Pneumococcal Vaccine: 65+ Years Completed 08/09/2017, 07/24/2008, 08/12/2003 VITAMIN D LEVEL ONCE IN A LIFETIME-USE SMARTSET# [id number] Completed 11/02/2017, 08/29/2013, 06/20/2012, Additional history exists [...] Diagnosis Encounter for long-term (current) use of medications Encounter for long-term (current) use of other medications USP current use of anticoagulant therapy USP current use of anticoagulant therapy- Primary documented in this encounter Care Teams Benzol Operator Relationship Specialty Start Date End Date Christiano Felton MD [address] [place] [address] PCP - General 12/30/1997 documented as of this encounter
--- OUTSIDE RECORDS SUMMARY | 2024-05-25 14:31 | External Medical Summary ---
Author Name Unknown Address Unknown Organization K0G:[facility] [address] [place] [address] Laboratory Report Ordering Provider Test Date Status MAXIMILIAN BRINK 04/24/2024 08:59:00 Final Warfarin Therapy
INR: 2 .0-3.0 conventional anticoagulation
INR: 2.5- 3.5 high intensity anticoagulation Observation Date Value Abnormality Reference (Units ) Status PT 04/24/2024 08:59:00 22.9 Above high normal 11 .6-15.2 (seconds) Final INR 04/24/2024 08:59:00 2.0 Above high normal 0. 8-1.[address] [address] [facility] [place] [address]
--- OUTSIDE RECORDS SUMMARY | 2024-05-25 14:31 | External Medical Summary | Summary of Care ---
Author Name Unknown Organization [facility] Address [address] [place] [address] Phone [phone] Care Team Providers Care Sanitor Name Role Phone Devi Felton MD Primary Care Provider [phone] Reason for Visit * Reason Comments eRx-Medication Refill Encounter Details Date Type Department Care Team (Late st Contact Info) Description 04/20/2024 Refill [facility] [address] [place] [address] Devi Felton MD [address] [place] [address] Type 2 diabetes mellitus with stage 3b chronic kidney disease, with long-term current use of insulin ([facility]) Allergies Active Allergy Reactions Criticality Noted Date Comments Adhesive Tape 07/22/2017 Penicillins 09/07/1999 Difficulty breathing Rosiglitazone Maleate 12/25/2004 possible relation to DVT, PE's Tramadol Hcl Hives 10/20/2023 documented as of this encounter (statuses as of 04/20/2024) Medications Medication Sig Dispensed Refills Start Date [...] BEFORE BREAKFAST 90 Tablet 3 3 Active BD Insulin Syringe U-500 31G X 6MM 0.5 ML (Insulin Syringe/Needle U-500)Indications: Type 2 diabetes mellitus with stage 1 chronic kidney disease, unspecified whether prison insulin use (HCC) Use as directed. 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 TAKE [...] UNCONTROLLED DIABETES 300 Strip 1 4 Active metFORMIN HCl 1000 MG Oral Tablet (Glucophage)Indica tions:Type 2 diabetes mellitus with stage 3b chronic kidney disease, with long-term current use of insulin (HCC) TAKE 1 TABLET BY MOUTH TWICE DAILY every morning and before bedtime 180 Tablet 1 4 Active metFORMIN HCl 1000 MG Oral Tablet (Glucophage)Indica tions:Type 2 diabetes mellitus with stage 3b chronic kidney disease, with long-term current use of insulin (HCC) TAKE 1 TABLET BY MOUTH TWICE DAILY; morning and before bedtime 180 Tablet 2 3 04/20/20 24 Discontinued documented as of this encounter (statuses as of 04/20/2024) Active Problems Problem Noted Date Diagnosed Date [...] Taxonomy ICD-10 update of inactive term 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 GENERAL OSTEOARTHROSIS 09/22/1999 Lymphedema documented as of this encounter (statuses as of 04/20/2024) Resolved Problems Problem Noted Date Diagnosed Date [...] as of this encounter (statuses as of 04/20/2024) Immunizations Name Administration Dates Next Due Pneumococcal [...] encounter Miscellaneous Notes * Telephone Encounter - Mami Yañez [facility] - 04/20/2024 5:18 PM EDT Signed Prescriptions: Disp Refills metFORMIN HCl 1000 MG Oral Tablet (Glucoph*180 Ta*1 Sig: TAKE 1 TABLET BY MOUTH TWICE DAILY every morning and before bedtimeAuthorizing Provider: DEVI FELTON User: MAMI YAÑEZ documented in this encounter Plan of Treatment Upcoming Encounters Date Type Department Care Team (Late st Contact Info) Description 04/24/2024 7:05 AM EDT Laboratory Lab [facility] [address] [place] [address] [facility], Gml Mobile Home Draw [address] [address] [address] 04/25/2024 6:00 AM EDT Anticoagulation Centralized Clinical Pharmacy Services, Gino Michael [address] [place] [address] [place] [address] [place] [address] 60 [facility] [place] [address] 04/27/2024 1:45 PM EDT Imaging Radiology [facility] 1st Floor, [place] 132 [facility] [place] [address] 06/07/2024 1:00 PM EDT Office Visit [facility] [address] [place] [phone] Devi Felton MD [address] [place] [address] 06/29/2024 2:00 PM EDT Office Visit Cardiology, [facility] 132 [facility] [place] [address] Devi Caballero PA-C 132 [facility] [place] [address] 08/10/2024 12:00 PM EDT Laboratory Laboratory [facility] [address] [place] [phone] [facility] [address] [place] [address] 08/10/2024 1:00 PM EDT Immunization/Injection Hematology/Oncology Treatment, [place] [address] [place] [phone] Nurse, Med [address] [place] [address] [address] 08/27/2024 3:00 PM EDT Imaging Radiology, [facility] [address] [facility] [place], [place] [address] 09/13/2024 9:20 AM EDT Laboratory Laboratory [facility] [address] [place] [phone] [place] [address] [place] [address] 09/20/2024 3:00 PM EST Office Visit Hematology/Oncology [facility] [place] [address] [place] [phone] Caroline Guerrier CRNP 400 [facility] [place] [address] Health Maintenance Due Date Last Done [...] Additional history exists CKD HGB USE SMARTSET 55901 02/07/202502/07, 02/08/2024, 10/10/2023, Additional history exists CKD PHOS USE SMARTSET 40015 02/07/202501/13, 08/05/2023, 05/26/2023, Additional history exists Diabetic Foot Exam 03/27/2025 03/27/2024, 0 06/02/2022, 01/06/2021, Additional history exists DTaP,Tdap,and Td Vaccines (3 - Td or Tdap) 03/27/2034 03/27/2024, 01/21/2014, 06/14/1988 Pneumococcal Vaccine: 65+ Years Completed 08/09/2017, 07/24/2008, 08/12/2003 VITAMIN D LEVEL ONCE IN A LIFETIME-USE SMARTSET# [id number] Completed 11/02/2017, 08/29/2013, 06/20/2012, Additional history exists [...] Diagnoses Diagnosis Type 2 diabetes mellitus with stage 3b chronic kidney disease, with long-term current use of insulin (HCC) documented in this encounter Care Teams Sanitor Relationship Specialty Start Date End Date Devi Felton MD [address] [place] [address] PCP - General 12/30/1997 documented as of this encounter
--- OUTSIDE RECORDS SUMMARY | 2024-05-25 14:32 | External Medical Summary | Summary of Care ---
Author Name Unknown Organization [facility] Address [address] [place] [address] Phone [phone] Care Team Providers Care Paper Sales Representative Name Role Phone Christiano Felton MD Primary Care Provider [phone] Reason for Referral * Evaluate & Treat - Unlimited Visits (Within 10 days (routine)) - Pending Review Specialty Diagnoses / Procedures Referred By Contact Referred To Contact Cardiovascular Medicine / Cardiology Diagnoses PSVT (paroxysmal supraventricular tachycardia) (HCC) Christiano Felton MD [address] [place] [address] Referral ID Status Reason Start Date Expiration Date Visits Requested Visits Authorized [id number] Pending Review Specialty Services Required 03/27/[phone] Question Answer Referral Priority Within 10 days (routine) Where should this appointment be scheduled? [facility] To which of the following clinics are you referring your patient? General Cardiology [facility] Reason for Visit * Reason Comments Follow Up Patient is here due to 4 month follow upPatient states no concerns Encounter Details Date Type Department Care Team (Latest Contact Info) Description 03/27/2024 1:40 PM EDT Office Visit [facility] [address] [place] [address] Christiano Felton MD [address] [place] [address] Laceration of left forearm, initial encounter*; Type 2 diabetes mellitus with diabetic nephropathy, with long-term current use of insulin (HCC); Need for aqnasjpciy-twpatud-nolno ssis (Tdap) vaccine; Current moderate episode of major depressive disorder, unspecified whether recurrent ([facility]); PSVT (paroxysmal supraventricular tachycardia) ([facility]) Allergies Active Allergy Reactions Criticality Noted Date Comments Adhesive Tape 07/22/2017 Penicillins 09/07/1999 Difficulty breathing Rosiglitazone Maleate 12/25/2004 possible relation to DVT, PE's Tramadol Hcl Hives 10/20/2023 documented as of this encounter (statuses as of 03/27/2024) Medications Medication Sig Dispensed Refills Start Date End Date Status VOLTAREN 1 % TD GELIndications:Gene ralized osteoarthritis Apply to affected area(knees) 4 grams up to 4 times daily 100 g 5 08/29/2013 Active Vitamin B-12 1000 MCG Sublingual Tablet SublingualIndicatio ns:B12 deficiency Take 1 Tab by mouth daily. [...] Active metFORMIN HCl 1000 MG Oral Tablet (Glucophage)Indicat ions:Type 2 diabetes mellitus with stage 3b chronic kidney disease, with long-term current use of insulin ([facility]) TAKE 1 TABLET BY MOUTH TWICE DAILY; morning and before bedtime 180 Tablet 2 07/31/2023 Active BD Insulin Syringe U-500 31G X 6MM 0.5 ML (Insulin Syringe/Needle U-500)Indications:T ype 2 diabetes mellitus with stage 1 chronic kidney disease, unspecified whether nursing home insulin use ([facility]) Use as directed. Use for insulin injections twice daily DxE11.29 200 Each 3 08/24/2023 Active Ferrous Sulfate 325 (65 Fe) MG Oral Tablet (Feosol)Indications :Iron deficiency anemia, unspecified iron deficiency anemia type Take one tab by mouth every day 90 Tablet 3 09/20/2023 Active Furosemide 40 MG Oral Tablet (Lasix)Indications: Heart failure, diastolic, due to HTN (HCC),Chronic acquired lymphedema TAKE 1 TABLET BY MOUTH TWICE DAILY every morning and before bedtime 180 Tablet 3 11/14/2023 Active Metoprolol Tartrate 25 MG Oral Tablet (Lopressor)Indicati ons:Paroxysmal atrial flutter (HCC),Aortic valve stenosis, etiology of cardiac valve disease unspecified,HTN, goal below 140/90 Take 0.5 Tablets by mouth in the morning and 0.5 Tablets before bedtime. 90 Tablet 3 11/30/2023 Active Insulin Glargine 100 UNIT/ML Subcutaneous Solution (Lantus)Indications :Type 2 diabetes mellitus with hemoglobin A1c goal of less than 8.0% ([facility]) INJECT 36 UNITS UNDER THE SKIN IN THE MORNING AND 42 UNITS IN THE EVENING 90 mL 1 12/07/2023 Active Pregabalin 150 MG Oral Capsule (Lyrica)Indications :Type 2 diabetes mellitus with diabetic nephropathy, with long-term current use of insulin ([facility]) Take 1 Capsule by mouth in the morning and 1 Capsule before bedtime. 60 Capsule 11 01/19/2024 Active Warfarin Sodium 5 MG Oral Tablet (Jantoven)Indicatio ns:History of pulmonary embolism,Anticoagul ation management encounter,FPC current use of anticoagulant therapy TAKE ONE TO ONE and 1/2 TABLETs BY MOUTH ONCE DAILY INSTRUCTED BY [facility] 135 Tablet 1 02/27/2024 Active traMADol HCl 50 MG Oral Tablet (Ultram)Indications :Type 2 diabetes mellitus with diabetic nephropathy, with long-term current use of insulin ([facility]) Take 1 Tablet by mouth daily as needed for Pain, Moderate. 30 Tablet 0 03/13/2024 Active Escitalopram Oxalate 10 MG Oral Tablet (Lexapro)Indication s:Current moderate episode of major depressive disorder, unspecified whether recurrent (HCC) 1/2 tab daily x 7 days then 1 tab daily 90 Tablet 3 03/27/2024 Active Lisinopril 10 MG Oral Tablet (Prinivil)Indicatio ns:Type 2 diabetes mellitus with stage 3b chronic kidney disease, with long-term current use of insulin ([facility]),HTN, goal below 140/90 TAKE 1 TABLET BY MOUTH ONCE DAILY 90 Tablet 2 12/11/2023 03/27/20 24 Discontinu ed(Adverse reaction) documented as of this encounter (statuses as of 03/27/2024) Active Problems Problem Noted Date Diagnosed Date [...] Obesity Taxonomy ICD-10 update of inactive term FPC current use of anticoagulant therapy 1 11/25/2008 Overview: ICD-10 update of inactive term Primary localized osteoarthrosis, lower leg 09/15 Diabetic polyneuropathy 07/13/2006 ADVANCE DIRECTIVE INFORMATION 04/16/2005 Overview: No, Advance Directive brochure given to patient at prior appointment. GENERAL OSTEOARTHROSIS 09/22/1999 Lymphedema documented as of this encounter (statuses as of 03/27/2024) Resolved Problems Problem Noted Date Diagnosed Date [...] as of this encounter (statuses as of 03/27/2024) Immunizations Name Administration Dates Next Due Pneumococcal [...] Sign Reading Time Taken Comments Blood Pressure 88/55 03/27/2024 1:43 PM EDT Pulse 60 03/27/2024 1:43 PM EDT Temperature 36 C (96.8 F) 03/27/2024 1:43 PM EDT Respiratory Rate 16 03/27/2024 1:43 PM EDT Oxygen Saturation 98% 03/27/2024 1:43 PM EDT Inhaled Oxygen Concentration - - Weight 120.7 kg (266 lb) 03/27/2024 1:43 PM EDT Height - - Body Mass Index 45.66 06/29/2023 12:19 PM EDT documented in this encounter Progress Notes * Diane Kebede LPN - 03/27/2024 2:56 PM EDT Immunization Administration Documentation Time Out Procedure Performed: Yes Patient Identified (Ask Name/Date of ): Yes Does the patient have a fever greater than 101 degrees today? No Patient allergic to latex? No VFC Stock: No Immunization(s) verified: Yes, Immunization Name: Tdap (Boostrix), VIS Sheet(s) given: Yes Verified Side and Site: Yes Verified Shot(s) with Parent(s)/Patient: Yes * Christiano Felton MD - 03/27/2024 2:14 PM EDT Subjective: Gloria Felix is a 83 year old female. Chief Complaint Patient presents with Follow Up Patient is here due to 4 month follow up Patient states no concerns HPI: 83-year-old seen today for scheduled visit. She notes a lack of energy. She would like to do some things including even items like balancing her checkbook but she just does not feel she has the energy. New line she is pleased with the results in her lower legs decreasing edema and overall skintexture improvement. She attributes much of this to using the lower leg pneumatic pumps. She finished Arimidex with Dr. Graham as her breast cancer dates back 7 years. She does admit to feeling depressed. Um often times does have a lack of interest. 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 Z79.01 Obesity, morbid (more than 100 lbs over ideal weight or BMI > 40) ([facility]) E66.01 PSVT (paroxysmal supraventricular tachycardia) ([facility]) I47.10 DM type 2 causing renal disease ([facility]) E11.29 Vitamin D deficiency E55.9 Type 2 diabetes mellitus with hemoglobin A1c goal of less than 8.0% ([facility]) E11.9 Obstructive sleep apnea of adult G47.33 HTN, goal below 140/90 I10 MEDICATION USE AGREEMENT [id number] Malignant neoplasm of upper-outer quadrant of left female breast ([facility]) C50.412 Senile osteoporosis M81.0 Osteoarthritis of both knees M17.0 History of pulmonary embolism Z86.711 History of nonmelanoma skin cancer Z85.828 Malignant neoplasm of upper-outer quadrant of left breast in female, estrogen receptor positive ([facility]) C50.412, Z17.0 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, T38.6X5A Cholecystitis K81.9 Supplemental oxygen dependent Z99.81 Left anterior fascicular block I44.4 Impaired mobility and ADLs Z74.09, Z78.9 Generalized weakness R53.1 NSVT (nonsustained ventricular tachycardia) ([facility]) I47.29 Atrial flutter ([facility]) I48.92 Heart failure, diastolic, due to HTN ([facility]) I11.0, I50.30 Nonrheumatic aortic valve stenosis I35.0 Current moderate episode of major depressive disorder without prior episode ([facility]) F32.1 Gastroesophageal reflux disease without esophagitis K21.9 Chronic kidney disease, stage 3b ([facility]) N18.32 Type 2 diabetes mellitus with diabetic nephropathy, with long-term current use of insulin ([facility]) E11.21, Z79.4 Action tremor G25.2 Typical atrial flutter ([facility]) I48.3 Current Outpatient Medications Medication Sig Dispense Refill VOLTAREN 1 % TD GEL Apply to affected area(knees) 4 grams up to 4 times daily 100 g 5 Vitamin B-12 1000 MCG Sublingual Tablet Sublingual Take 1 Tab by mouth daily. 90 Tab 1 Vitamin D3 50 MCG (2000 UT) Oral Capsule Take 1 Cap by mouth every other day. 30 Cap 1 Accu-Chek Lennie Plus In Vitro Strip (Glucose Blood) USE STRIP TO CHECK GLUCOSE 2 TO 3 TIMES DAILY FOR UNCONTROLLED DIABETES. 300 Strip 3 Pantoprazole Sodium 40 MG Oral Tablet Delayed Release (Protonix) TAKE 1 TABLET BY MOUTH ONCE DAILY BEFORE BREAKFAST 90 Tablet 3 metFORMIN HCl 1000 MG Oral Tablet (Glucophage) TAKE 1 TABLET BY MOUTH TWICE DAILY; morning and before bedtime 180 Tablet 2 BD Insulin Syringe U-500 31G X 6MM 0.5 ML (Insulin Syringe/Needle U-500) Use as directed. Use for insulin injections twice daily DxE11.29 200 Each 3 Ferrous Sulfate 325 (65 Fe) MG Oral Tablet (Feosol) Take one tab by mouth every day 90 Tablet 3 Furosemide 40 MG Oral Tablet (Lasix) TAKE 1 TABLET BY MOUTH TWICE DAILY every morning and before bedtime 180 Tablet 3 Metoprolol Tartrate 25 MG Oral Tablet (Lopressor) Take 0.5 Tablets by mouth in the morning and 0.5 Tablets before bedtime. 90 Tablet 3 Insulin Glargine 100 UNIT/ML Subcutaneous Solution (Lantus) INJECT 36 UNITS UNDER THE SKIN IN THE MORNING AND 42 UNITS IN THE EVENING 90 mL 1 Lisinopril 10 MG Oral Tablet (Prinivil) TAKE 1 TABLET BY MOUTH ONCE DAILY 90 Tablet 2 Pregabalin 150 MG Oral Capsule (Lyrica) Take 1 Capsule by mouth in the morning and 1 Capsule beforebedtime. 60 Capsule 11 Warfarin Sodium 5 MG Oral Tablet (Jantoven) TAKE ONE TO ONE and 1/2 TABLETs BY MOUTH ONCE DAILY INSTRUCTED BY [facility] 135 Tablet 1 traMADol HCl 50 MG Oral Tablet (Ultram) Take 1 Tablet by mouth daily as needed for Pain, Moderate. 30 Tablet 0 No current facility-administered medications for this visit. Review of patient's allergies indicates: Allergen Reactions Adhesive Tape Penicillins Difficulty breathing Rosiglitazone Maleate possible relation to DVT, PE's Tramadol Hcl Hives Objective: BP 88/55 | Pulse 60 | Temp 36 C (96.8 F) (Temporal Artery) | Resp 16 | Wt 120.7 kg (266 lb) | SpO2 98% | BMI 45.66 kg/m | BSA 2.33 m Physical Exam: CONST: alert, pleasant, no acute distress HEAD: normocephalic, atraumatic Eyes - PERRLA, EOM'I OROPHARYNX: clear, no swelling or erythema, moist CV: regular rate and rhythm, grade 3/6 systolic murmur CHEST: clear to auscultation bilaterally, no rales or wheezing ABD: soft, non tender, non distended, no masses or hepatosplenomegaly EXT: no edema, no joint swelling or deformities, NEURO: AAOx3, no gross focal deficits, cerebellar signs normal, affect appropriate MENTAL STATUS: no evidence of thought disorder, no delusional thought, no evidence of paranoia, thought is non-tangential. SKIN: She has scratches over both forearms that are deep enough that they cause bleeding ASSESSMENT/PLAN: Laceration of left forearm, initial encounter (Primary)-Boostrix vaccine today Type 2 diabetes mellitus with diabetic nephropathy, with long-term current use of insulin (HCC)-overall her kidney function is not bad with the last GFR 43. Patient asked about Nephrology referral. [place] were okay holding off Nephrology visit at this point in time. Check hemoglobin A1c today Need for okvsjvwhrv-gflnbbd-rktblahzl (Tdap) vaccine-see above Current moderate episode of major depressive disorder, unspecified whether recurrent (HCC)-initiateLexapro 10 mg half tablet daily for 1 week and then a full tablet daily. We discussed potential side effects. Re-evaluate with return visit in 2 months Aortic stenosis moderate per echo. She needs to be scheduled to see Cardiology. Hx HTN- now low BP and possibly sympomatic. Stop Lisinopril Follow Up: Return in about 2 months (around 05/27/2024) for Return with Physician. | For: Return with Physician Christiano Felton MD documented in this encounter Nursing Notes * Escobar Ruiz Student - 03/27/2024 1:43 PM EDT The patient has been properly identified by confirmation of name and date of . Chief Complaint Patient presents with Follow Up Patient is here due to 4 month follow up Patient states no concerns documented in this encounter Plan of Treatment Upcoming Encounters Date Type Department Care Team (Late st Contact Info) Description 03/28/2024 6:00 AM EDT Anticoagulation Pharmacy Call Center [place] [address] [facility] [place] [address] [facility] [address] [facility] [place] [address] 04/04/2024 1:15 PM EDT Imaging Radiology [facility] [address] [facility] [address] [employer] [place] [address] 06/07/2024 1:00 PM EDT Office Visit Family Practice, [place] [address] [place] [phone] Christiano Felton MD [address] [place] [address] 06/29/2024 2:00 PM EDT Office Visit Cardiology, [facility] [address] [employer] [place] [address] Christiano Caballero, PA[facility]C [facility] [address] 08/10/2024 12:00 PM EDT Laboratory Laboratory [facility] [place] [address] [place] [phone] [place] [facility] [address] [facility] [place] [address] 08/10/2024 1:00 PM EDT Immunization/Injection Hematology/Oncology Treatment, [place] [address] [place] [phone] Nurse, Med [address] [place] [address] [address] 08/27/2024 3:00 PM EDT Imaging Radiology, [address] [place] [address] 09/13/2024 9:20 AM EDT Laboratory Laboratory [facility] [place] [address] [place] [phone] [place], Lab [facility] [address] [facility] [place] [address] 09/20/2024 3:00 PM EST Office Visit Hematology/Oncology [facility] [place] [address] [place] [phone] Caroline Guerrier CRNP [address] [facility] [place] [address] Pending Results Name Type Priority Associated Diagnoses Date /Time HEMOGLOBIN A1C Lab Routine Type 2 diabetes mellitus with diabetic nephropathy, with long-term current use of insulin (HCC) 03/27/2024 2:57 PM EDT Scheduled Orders Name Type Priority Associated Diagnoses Orde r Schedule HEMOGLOBIN A1C Lab Routine Type 2 diabetes mellitus with diabetic nephropathy, with long-term current use of insulin (HCC) Expected: 03/27/2024 (Approximate), Expires: 04/27/2025 Scheduled Referrals Name Type Priority Associated Diagnoses Orde r Schedule CARDIOLOGY REFERRAL OP Referral Within 10 days (routine) PSVT (paroxysmal supraventricular tachycardia) (HCC) Ordered: 03/27/2024 Health Maintenance Due Date Last Done Comments Albumin/Creatinine Ratio 06/02/2023 072 022, 01/24/2019, 02/08/2018, Additional history exists COVID-19 Vaccine ( season) 2023 HbA1c 12/30/2023 06/29/2023, 01/12, 02/03/2022, Additional history exists DXA Scan 06/02/2024 06/02/2022 (Decl ined), 03/26/2019, 03/21/2017, Additional history exists GFR 08/10/2024 02/08/2024, 0 01/2024, 09/08/2023, Additional history exists Diabetic Eye Exam 11/16/2024 11/16/2023, , 05/04/2021, Additional history exists CKD HGB USE SMARTSET [id number] 02/07/2025 03/27 /2024, 02/08/2024, 10/10/2023, Additional history exists CKD PHOS USE SMARTSET [id number] 02/07/2025 03/05/2024, 08/05/2023, 05/26/2023, Additional history exists Diabetic Foot Exam 03/27/2025 03/27/2024, 0 06/02/2022, 01/06/2021, Additional history exists DTaP,Tdap,and Td Vaccines (3 - Td or Tdap) 03/27/2034 03/27/2024, 01/21/2014, 06/14/1988 Pneumococcal Vaccine: 65+ Years Completed 08/09/2017, 07/24/2008, 08/12/2003 VITAMIN D LEVEL ONCE IN A LIFETIME-USE SMARTSET# [id number] Completed 11/02/2017, 08/29/2013, 06/20/2012, Additional history exists [...] as of this encounter Visit Diagnoses Diagnosis Laceration of left forearm, initial encounter- Primary Type 2 diabetes mellitus with diabetic nephropathy, with long-term current use of insulin (HCC) Need for krytctfwvt-ifqehce-xqjugtacj (Tdap) vaccine Need for prophylactic vaccination with combined areihnsjzc-rkmfnve-jxyoyhwpm (DTP) vaccine Current moderate episode of major depressive disorder, unspecified whether recurrent (HCC) PSVT (paroxysmal supraventricular tachycardia) (HCC) Paroxysmal supraventricular tachycardia documented in this encounter Care Teams Paper Sales Representative Relationship Specialty Start Date End Date Christiano Felton MD [address] [place] [address] PCP - General 12/30/1997 documented as of this encounter"
--- OUTSIDE RECORDS SUMMARY | 2024-05-25 14:32 | External Medical Summary | Summary of Care ---
Author Name Unknown Organization [facility] Address [address] 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 58 60 [facility] [address] 04/13/2024 1:30 PM EDT Imaging Radiology [facility] [address] [place] [address] 06/07/2024 1:00 PM EDT [facility] [address] [place] [phone] Christiano Felton MD [address] [place] [address] 06/29/2024 2:00 PM EDT Office Visit Cardiology, [address] [place] [address] Christiano Caballero PA-C [facility] [place] [address] 08/10/2024 12:00 PM EDT Laboratory Laboratory [facility] [place] [address] [place] [phone] Rosana Lab [facility] 200 [facility] [place] [address] 08/10/2024 1:00 PM EDT Immunization/Injection Hematology/Oncolo gy Treatment, [place] 200 [facility] [phone] Nurse, Med 200 [facility] [address] 08/27/2024 3:00 PM EDT Imaging Radiology, [facility] 2520 [facility] [place] [address] 09/13/2024 9:20 AM EDT Laboratory Laboratory [facility] [place] 200 [facility] [address] Deisy Wayne [facility] 200 [facility] [place] [facility] [place] [address] 09/20/2024 3:00 PM EST Office Visit Hematology/Oncolo gy [facility] [place] 200 [facility] [place] [phone] Caroline Guerrier CRNP [address] [place] [address] Scheduled Orders Name Type Priority Associated Diagnoses Orde r Schedule PT INR Lab Routine intermediate card tender current use of anticoagulant therapy Expected: 04/10/2024, Expires: 04/10/2025 Health Maintenance Due Date Last Done Comments [...] Additional history exists CKD HGB USE SMARTSET 13211 02/07/202502/07, 02/08/2024, 10/10/2023, Additional history exists CKD PHOS USE SMARTSET 71839 02/07/2025/05/2024, 08/05/2023, 05/26/2023, Additional history exists Diabetic Foot Exam 03/27/2025 03/27/2024, 0 06/02/2022, 01/06/2021, Additional history exists DTaP,Tdap,and Td Vaccines (3 - Td or Tdap) 03/27/2034 03/27/2024, 01/21/2014, 06/14/1988 Pneumococcal Vaccine: 65+ Years Completed 08/09/2017, 07/24/2008, 08/12/2003 VITAMIN D LEVEL ONCE IN A LIFETIME-USE SMARTSET# [id number] Completed 11/02/2017, 08/29/2013, 06/20/2012, Additional history exists [...] as of this encounter Visit Diagnoses Diagnosis 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
--- OUTSIDE RECORDS SUMMARY | 2024-05-25 14:32 | External Medical Summary | Summary of Care ---
Author Name Unknown Organization [facility] Address [address] [facility] [place] [address] Phone [phone] Care Team Providers Care Bsa/Aml Compliance Officer Name Role Phone Christiano Felton MD Primary Care Provider [phone] Reason for Visit * Reason Comments Dosage Adjustment Via Phone (anticoag Cl inic) Encounter Details Date Type Department Care Team (Latest Contact Info) Description 03/28/2024 6:00 AM EDT Anticoagulation Pharmacy Call Center [address] [place] [address] [facility] 58 60 [facility] [place] [address] History of pulmonary embolism*; Typical atrial flutter (HCC) Allergies Active Allergy Reactions Criticality Noted Date Comments Adhesive Tape 07/22/2017 Penicillins 09/07/1999 Difficulty breathing Rosiglitazone Maleate 12/25/2004 possible relation to DVT, PE's Tramadol Hcl Hives 10/20/2023 documented as of this encounter (statuses as of 03/28/2024) Medications Medication Sig Dispensed Refills Start Date [...] (Jantoven)Indication s:History of pulmonary embolism,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 GENERAL OSTEOARTHROSIS 09/22/1999 Lymphedema documented as of this encounter (statuses as of 03/28/2024) Resolved Problems Problem Noted Date Diagnosed Date [...] as of this encounter (statuses as of 03/28/2024) Immunizations Name Administration Dates Next Due Pneumococcal [...] as of this encounter Progress Notes * Salomón Waldron watch caser - 03/28/2024 11:58 AM EDT Contacts Type Contact Phone/Fax 03/28/2024 11:56 AM EDT Phone (Outgoing) Gloria Felix (Self) [phone] (H) Subjective Patient Findings Negatives: Signs/symptoms of thrombosis, [...] communicated as noted by Pharmacist: Yes KSENIA Shultz Tech 03/28/2024, 11:58 AM * Kristyn Cross [facility] - 03/28/2024 10:57 AM EDT Coumadin Clinic (region specific) Objective Current Warfarin Dose As of 03/28/2024 Warfarin maintenance plan: 7.5 mg (5 mg x 1.5) every Mon; 5 mg (5 mg x 1) all other days (decreasedlast week while on Bactrim, now complete) INR Result As of 03/28/2024 INR goal: 2.0-3.0 INR used for dosin.1 (03/27/2024) Assessment & Plan Warfarin Plan As of 03/28/2024 Full warfarin instructions: 7.5 mg every Mon; 5 mg all other days Next INR check: 04/10/2024 Repeat PT/INR in 2 week(s) Weekly dose: not changed Additional Dosing Information: Description 03/16/24 - bactrim DS BID x 10 days GML MTuTh Takes in AM Tech to contact patient with dose instructions as noted. Kristyn Cross RPh 03/28/2024, 10:57 AM documented in this encounter Plan of Treatment Upcoming Encounters Date Type Department Care Team (Late st Contact Info) Description 04/04/2024 1:15 PM EDT Imaging Radiology [address] [place] [address] 04/10/2024 7:05 AM EDT Laboratory Lab Mobile Phlebotomy [facility] [place] [address] Mvmg, Gml Mobile Home Draw 2520 [facility] [place] [address] 06/07/2024 1:00 PM EDT Office Visit [facility] [address] [place] [phone] Christiano Felton MD [address] [place] [address] 06/29/2024 2:00 PM EDT Office Visit Cardiology, [facility] [address] [place] [address] Christiano Caballero, PA-C [address] [place] [address] 08/10/2024 12:00 PM EDT Laboratory Laboratory [facility] [address] [place] [phone] Ros[facility] [address] [facility] [place] [address] 08/10/2024 1:00 PM EDT Immunization/Injecti on Hematology/Oncology Treatment, [place] [address] [place] [address] Nurse, Med 4 200 [facility] [place] [address] 08/27/2024 3:00 PM EDT Imaging Radiology, [address] [place] [address] 09/13/2024 9:20 AM EDT Laboratory Laboratory [facility] Rosana [place] [address] [place] [address] Rosana Lab [address] [place] [facility] [place] [address] 09/20/2024 3:00 PM EST Office Visit Hematology/Oncology [facility] [place] [address] [place] [phone] Caroline Guerrier CRNP 400 [facility] [place] [address] Health Maintenance Due Date Last Done Comments Albumin/Creatinine Ratio 06/02/20232 022, 01/24/2019, 02/08/2018, Additional history exists COVID-19 Vaccine ( season) 2023 DXA Scan 06/02/2024 06/02/2022 (Decl ined), 03/26/2019, 03/21/2017, Additional history exists GFR 08/10/2024 02/08/2024, 01/0 01/2024, 09/08/2023, Additional history exists HbA1c 09/27/2024 03/27/2024, 08/04/2023, 01/25/2023, Additional history exists Diabetic Eye Exam 11/16/2024 11/16/2023, , 05/04/2021, Additional history exists CKD HGB USE SMARTSET 58198 02/07/202502/07, 02/08/2024, 10/10/2023, Additional history exists CKD PHOS USE SMARTSET 48520 02/07/202501/13, 08/05/2023, 05/26/2023, Additional history exists Diabetic Foot Exam 03/27/2025 03/27/2024, 0 06/02/2022, 01/06/2021, Additional history exists DTaP,Tdap,and Td Vaccines (3 - Td or Tdap) 03/27/2034 03/27/2024, 01/21/2014, 06/14/1988 Pneumococcal Vaccine: 65+ Years Completed 08/09/2017, 07/24/2008, 08/12/2003 VITAMIN D LEVEL ONCE IN A LIFETIME-USE SMARTSET# [id number] Completed 11/02/2017, 08/29/2013, 06/20/2012, Additional history exists [...] flutter documented in this encounter Care Teams Bsa/Aml Compliance Officer Relationship Specialty Start Date End Date Christiano Felton MD [address] [place] [address] PCP - General 12/30/1997 documented as of this encounter
--- OUTSIDE RECORDS SUMMARY | 2024-05-25 14:32 | External Medical Summary ---
Author Name Unknown Address Unknown Organization K0G:LABORATORY [facility] STEVE 57[address] [place] [address] Laboratory Report Ordering Provider Test Date Status MAXIMILIAN BRINK 04/10/2024 07:59:00 Final Warfarin Therapy
INR: 2 .0-3.0 conventional anticoagulation
INR: 2.5- 3.5 high intensity anticoagulation Observation Date Value Abnormality Reference (Units ) Status PT 04/10/2024 07:59:00 18.0 Above high normal 11 .6-15.2 (seconds) Final INR 04/10/2024 07:59:00 1.5 Above high normal 0. 8-1.2 Final Performing Location [facility] [place] [address]
--- OUTSIDE RECORDS SUMMARY | 2024-05-25 14:32 | External Medical Summary | Summary of Care ---
Author Name Unknown Organization [facility] Address [address] [facility] [place] [address] Phone [phone] Care Team Providers Care Academic Advisor Name Role Phone Christiano Felton MD Primary Care Provider Reason for Visit * Reason Comments Dosage Adjustment Via Phone (anticoag Cl inic) Encounter Details Date Type Department Care Team (Latest Contact Info) Description 04/11/2024 6:00 AM EDT Anticoagulation Pharmacy Call Center [address] [place] [address] [facility] 58 60 [facility] [place] [address] History of pulmonary embolism*; Typical atrial flutter (HCC) Allergies Active Allergy Reactions Criticality Noted Date Comments Adhesive Tape 07/22/2017 Penicillins 09/07/1999 Difficulty breathing Rosiglitazone Maleate 12/25/2004 possible relation to DVT, PE's Tramadol Hcl Hives 10/20/2023 documented as of this encounter (statuses as of 04/11/2024) Medications Medication Sig Dispensed Refills Start Date [...] kidney disease, unspecified whether halfway insulin use (HCC) Use as directed. 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 GENERAL OSTEOARTHROSIS 09/22/1999 Lymphedema documented as of this encounter (statuses as of 04/11/2024) Resolved Problems Problem Noted Date Diagnosed Date [...] as of this encounter (statuses as of 04/11/2024) Immunizations Name Administration Dates Next Due Pneumococcal [...] as of this encounter Progress Notes * Ameena Taveras, [facility] - 04/11/2024 4:14 PM EDT Contacts Type Contact Phone/Fax 04/11/2024 12:42 PM EDT Phone (Outgoing) Gloria Felix (Self) [phone] (H) No Answer/Busy 04/11/2024 02:38 PM EDT Phone (Outgoing) Gloria Felix (Self) [phone] (H) No Answer/Busy - No option to leave 04/11/2024 03:18 PM EDT Phone (Outgoing) Gloria Felix (Self) [phone] (H) No Answer/Busy - No answer, no VM 04/11/2024 04:11 PM EDT Phone (Outgoing) Gloria Felix (Self) [phone] (H) Spoke to patient Subjective Patient Findings Positives: Missed doses (Has been taking 2.5mg Mon; 5mg all other days for awhile) Negatives: Signs/symptoms of thrombosis, Signs/symptoms of bleeding, Change in health, Change in alcohol use, Change in activity, Upcoming invasive procedure, Extra doses, Change in medications, Change in diet/appetite, Bruising Advised patient to contact Anticoagulation Clinic if any unusual bruising or bleeding, recent illness, changes in medication, or questions/concerns. PT/INR results, Coumadin dose instructions, and next PT/INR date communicated as noted by Pharmacist: Yes Ameena Taveras RPh 04/11/2024, 4:14 PM * Abbie Belle PHARM Tech - 04/11/2024 3:19 PM EDT Contacts Type Contact Phone/Fax 04/11/2024 12:42 PM EDT Phone (Outgoing) Gloria Felix (Self) [phone] (H) No Answer/Busy 04/11/2024 02:38 PM EDT Phone (Outgoing) Gloria Felix (Self) [phone] (H) No Answer/Busy - No option to leave VM 04/11/2024 03:18 PM EDT Phone (Outgoing) Gloria Felix (Self) [phone] (H) No Answer/Busy - No answer, no VM Unable to contact patient or leave message. MyG: no Please follow-up later. Thank you, Abbie Belle [employer] Designer [facility] ([facility]) 04/11/2024,3:19 PM * Ameena Taveras RPh - 04/11/2024 9:48 AM EDT Images from the original note were not included. Coumadin Clinic (region specific) Objective Current Warfarin Dose As of 04/11/2024 Warfarin maintenance plan: 7.5 mg (5 mg x 1.5) every Mon; 5 mg (5 mg x 1) all other days INR Result As of 04/11/2024 INR goal: 2.0-3.0 INR used for dosin.5 (04/10/2024) Assessment & Plan Warfarin Plan As of 04/11/2024 Full warfarin instructions: 04/11: 10 mg; Otherwise 7.5 mg every Mon; 5 mg all other days Next INR check: 04/24/2024 Repeat PT/INR in 2 week(s) Weekly dose: not changed Additional Dosing Information: Description [facility] MTuTh Takes in AM Tech to contact patient with dose instructions as noted. Ameena Taveras RPh 04/11/2024, 9:48 AM documented in this encounter Plan of Treatment Upcoming Encounters Date Type Department Care Team (Late st Contact Info) Description 04/13/2024 1:30 PM EDT Imaging Radiology [facility] 1st [facility] [address] [place] [address] 04/24/2024 7:05 AM EDT Laboratory Lab Mobile Phlebotomy [facility] 2520 [facility] [place] [address] Mvmg, l Mobile Home Draw 2520 [facility] [place] [address] 04/25/2024 6:00 AM EDT Anticoagulation Pharmacy Call Center 58-60 [facility] [place] [address] [facility], [facility] 58 60 [facility] [place] [address] 06/07/2024 1:00 PM EDT Office Visit [facility] [address] [place] [address] Christiano Felton MD [address] [place] [address] 06/29/2024 2:00 PM EDT Office Visit Cardiology, [facility] 132 [facility] [place] [address] Christiano Caballero, MARTY-C 132 [facility] [place] [address] 08/10/2024 12:00 PM EDT Laboratory Laboratory [facility] [place] [address] [place] [address] Rosana Lab [facility] [address] [facility] [place] [address] 08/10/2024 1:00 PM EDT Immunization/Injection Hematology/Oncology Treatment, [place] [address] [place] [address] Nurse, Med [address] [place] [address] 08/27/2024 3:00 PM EDT Imaging Radiology, [place] [address] [facility] [place] [address] 09/13/2024 9:20 AM EDT Laboratory Laboratory [facility] Rosana [place] [address] [place] [phone] Rosana Lab [facility] [address] [place] [address] [facility] [place] [address] 09/20/2024 3:00 PM EST Office Visit Hematology/Oncology [facility] Ros[place] [address] [place] [phone] Caroline Guerrier, [facility] [address] [facility] SSDM[facility]Y [place] [phone] Health Maintenance Due Date Last Done Comments [...] Additional history exists CKD HGB USE SMARTSET 66667 02/07/202502/07, 02/08/2024, 10/10/2023, Additional history exists CKD PHOS USE SMARTSET 90603 02/07/202501/13, 08/05/2023, 05/26/2023, Additional history exists Diabetic Foot Exam 03/27/2025 03/27/2024, 0 06/02/2022, 01/06/2021, Additional history exists DTaP,Tdap,and Td Vaccines (3 - Td or Tdap) 03/27/2034 03/27/2024, 01/21/2014, 06/14/1988 Pneumococcal Vaccine: 65+ Years Completed 08/09/2017, 07/24/2008, 08/12/2003 VITAMIN D LEVEL ONCE IN A LIFETIME-USE SMARTSET# [id number] Completed 11/02/2017, 08/29/2013, 06/20/2012, Additional history exists [...] embolism Typical atrial flutter (HCC) Atrial flutter Screening mammogram for breast cancer documented in this encounter Care Teams Academic Advisor Relationship Specialty Start Date End Date Christiano Felton MD [address] [place] [address] PCP - General 12/30/1997 documented as of this encounter
--- OUTSIDE RECORDS SUMMARY | 2024-05-25 14:32 | External Medical Summary | Summary of Care ---
Author Name Unknown Organization [facility] Address [address] [place] [address] Phone [phone] Care Team Providers Care Software Engineering Specialist Name Role Phone Christiano Felton MD Primary Care Provider [phone] Encounter Details Date Type Department Care Team (Late st Contact Info) Description 03/27/[address] 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 * Telephone Encounter - Christiano Felton MD - 03/27/2024 4:50 PM EDT Please notify Pt: I briefly mentioned stopping lisinopril at her Office visit. She should indeed stop the Lisinopril documented in this encounter Plan of Treatment Upcoming Encounters Date Type Department Care Team (Late st Contact Info) Description 04/10/2024 7:05 AM EDT Laboratory Lab [facility]lebot[facility] [address] [address] [facility] Mobile Home Draw [address] [place] [address] 04/11/2024 6:00 AM EDT Anticoagulation Pharmacy Call Center [facility] [address] [place] [address] [facility] 58 60 Public [facility] [place] [address] 04/13/2024 1:30 PM EDT Imaging Radiology [facility] 1st [facility] [address] [place] [address] 06/07/2024 1:00 PM EDT Office Visit Family [facility] [place] [address] [place] [phone] Christiano Felton MD [address] [place] [address] 06/29/2024 2:00 PM EDT Office Visit Cardiology, [facility] [address] [place] [address] Christiano Caballero PA-C 132 [facility] [place] [address] 08/10/2024 12:00 PM EDT Laboratory Laboratory [facility] [address] [place] [phone] Deisy Wayne [address] [place] [address] [address] 08/10/2024 1:00 PM EDT Immunization/Injection Hematology/Oncology Treatment, [place] [address] [place] [phone] Nurse, Med [address] [address] 08/27/2024 3:00 PM EDT Imaging Radiology, [facility] [address] [facility] [place] [address] 09/13/2024 9:20 AM EDT Laboratory Laboratory [facility] [place] [address] [place] [phone] [facility] [address] [address] 09/20/2024 3:00 PM EST Office Visit Hematology/Oncology [place] [facility] [place] 200 [facility] [place] [address] Caroline Guerrier CRNP [address] [place] [address] Health Maintenance Due Date Last Done Comments Albumin/Creatinine Ratio 06/02/2023 022, 01/24/2019, 02/08/2018, Additional history exists COVID-19 Vaccine ( season) 2023 DXA Scan 06/02/2024 06/02/2022 (Decl ined), 03/26/2019, 03/21/2017, Additional history exists GFR 08/10/2024 02/08/2024, 01/2024, 09/08/2023, Additional history exists HbA1c 09/27/2024 03/27/2024, 06/14, 01/25/2023, Additional history exists Diabetic Eye Exam 11/16/2024 11/16/2023, , 05/04/2021, Additional history exists CKD HGB USE SMARTSET 72497 02/07/202502/07, 02/08/2024, 10/10/2023, Additional history exists CKD PHOS USE SMARTSET 34809 02/07/202501/13, 08/05/2023, 05/26/2023, Additional history exists Diabetic Foot Exam 03/27/2025 03/27/2024, 0 06/02/2022, 01/06/2021, Additional history exists DTaP,Tdap,and Td Vaccines (3 - Td or Tdap) 03/27/2034 03/27/2024, 01/21/2014, 06/14/1988 Pneumococcal Vaccine: 65+ Years Completed 08/09/2017, 07/24/2008, 08/12/2003 VITAMIN D LEVEL ONCE IN A LIFETIME-USE SMARTSET# 25832 Completed 11/02/2017, 08/29/2013, 06/20/2012, Additional history exists [...] filedocumented as of this encounter Care Teams Software Engineering Specialist Relationship Specialty Start Date End Date Christiano Felton MD [address] [place] [address] PCP - General 12/30/1997 documented as of this encounter
--- OUTSIDE RECORDS SUMMARY | 2024-05-25 14:33 | External Medical Summary ---
Author Name Unknown Address Unknown Organization K01:LABORATORY [facility] - [address] [place] [address] Laboratory Report Ordering Provider Test Date Status GERARDO SINHA 03/27/2024 14:57:20 Final Observation Date Value Abnormality Reference (Units ) Status MYCODE SPECIMEN-SST 03/27/2024 14:57:20 Freezing of extracted DNA, whole blood and/or serum. Final Performing Location LABORATORY C - [address] [place] [address]
--- OUTSIDE RECORDS SUMMARY | 2024-05-25 14:33 | External Medical Summary | Summary of Care ---
Author Name Unknown Organization [facility] Address [address] [place] [address] Phone [phone] Care Team Providers Care Hvac Manager Name Role Phone Christiano Felton MD Primary Care Provider [phone] Reason for Visit * Reason Comments Outpatient Testing Encounter Details Date Type Department Care Team (Late st Contact Info) Description 03/27/2024 3:00 PM EDT Laboratory Laboratory, [place] [address] [place] [address] [place], Laboratory [address] [place] [address] [employer]inted Other*[id number]; Osteoporosis due to aromatase inhibitor; Malignant neoplasm of upper-outer quadrant of left breast in female, estrogen receptor positive (HCC); Iron deficiency anemia, unspecified iron deficiency anemia type; History of pulmonary embolism; Type 2 diabetes mellitus with diabetic nephropathy, with long-term current use of insulin (HCC) Allergies Active Allergy Reactions Criticality Noted [...] stage 1 chronic kidney disease, unspecified whether detention insulin use (HCC) Use as directed. Use [...] THE EVENING 90 mL 1 12/07/2023 Active Lisinopril 10 MG Oral Tablet (Prinivil)Indication s:Type 2 diabetes mellitus with stage 3b chronic kidney disease, with long-term current use of insulin (HCC),HTN, goal below 140/90 TAKE 1 TABLET BY MOUTH ONCE DAILY 90 Tablet 2 12/11/2023 Active Pregabalin 150 MG Oral Capsule (Lyrica)Indications: [...] 12/03/2020 Osteoporosis due to aromatase inhibitor 07/09/20 20 Malignant neoplasm of upper- outer quadrant of [...] Obesity Taxonomy ICD-10 update of inactive term detention current use of anticoagulant therapy 1 11/25/2008 [...] Pharmacy Call Center [address] [place] [address] [facility] 58 60 [facility] [place] [address] 04/04/2024 1:15 PM EDT Imaging Radiology [facility] 1st [facility], [address] [place] [address] 06/07/2024 1:00 PM EDT Office Visit [address] [place] [address] Christiano Felton MD [address] [place] [address] 06/29/2024 2:00 PM EDT Office Visit Cardiology, [facility] [place] [address] Christiano Caballero, PA-C [facility] [address] 08/10/2024 12:00 PM EDT Laboratory Laboratory [facility] [address] [place] [phone] Deisy Wayne [address] [place] [address] 08/10/2024 1:00 PM EDT Immunization/Injection Hematology/Oncology Treatment, [place] [address] [place] [phone] Nurse, Med 200 [facility] [place] [address] 08/27/2024 3:00 PM EDT Imaging Radiology, [facility] [address] [facility] [place] [address] 09/13/2024 9:20 AM EDT Laboratory Laboratory [facility] [place] [address] [place] [phone] Deisy Wayne [address] [facility] [place] [address] 09/20/2024 3:00 PM EST Office Visit Hematology/Oncology [facility] [place] [address] [place] [phone] Caroline Guerrier CRNP 400 [facility] [place] [id number] Scheduled Orders Name Type Priority Associated Diagnoses Orde r Schedule MYCODE SST1 Lab Routine MyCode Research Other*[id number] Ordered: 03/27/2024 MYCODE SST2 Lab Routine [facility] Other*[id number] Ordered: 03/27/2024 CBC Lab STAT 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, estrogen receptor positive (HCC) Iron deficiency anemia, unspecified iron deficiency anemia type History of pulmonary embolism Ordered: 03/27/2024 DIFFERENTIAL, AUTOMATED Lab STAT 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, estrogen receptor positive (HCC) Iron deficiency anemia, unspecified iron deficiency anemia type History of pulmonary embolism Ordered: 03/27/2024 MYCODE SST1 Lab Routine [employer] Other*[id number] Ordered: 03/27/2024 MYCODE SST2 Lab Routine [employer] Other*[id number] Ordered: 03/27/2024 CBC Lab STAT 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, estrogen receptor positive (HCC) Iron deficiency anemia, unspecified iron deficiency anemia type History of pulmonary embolism Ordered: 03/27/2024 DIFFERENTIAL, AUTOMATED Lab STAT 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, estrogen receptor positive (HCC) Iron deficiency anemia, unspecified iron deficiency anemia type History of pulmonary embolism Ordered: 03/27/2024 Health Maintenance Due Date Last [...] Additional history exists CKD HGB USE SMARTSET 45923 02/07/202502/07, 02/08/2024, 10/10/2023, Additional history exists CKD PHOS USE SMARTSET 15476 02/07/2025 03/2 05/2024, 08/05/2023, 05/26/2023, Additional history exists Diabetic Foot Exam 03/27/2025 03/27/2024, 0 06/02/2022, 01/06/2021, Additional history exists DTaP,Tdap,and Td Vaccines (3 - Td or Tdap) 03/27/2034 03/27/2024, 01/21/2014, 06/14/1988 Pneumococcal Vaccine: 65+ Years Completed 08/09/2017, 07/24/2008, 08/12/2003 VITAMIN D LEVEL ONCE IN A LIFETIME-USE SMARTSET# 48019 Completed 11/02/2017, 08/29/2013, 06/20/2012, Additional history exists [...] this encounter Visit Diagnoses Diagnosis MyCode Research Other*[id number] Osteoporosis due to aromatase inhibitor Other osteoporosis Malignant neoplasm of upper-outer quadrant of left breast in female, estrogen receptor positive (HCC) Iron deficiency anemia, unspecified iron deficiency anemia type History of pulmonary embolism Personal history of pulmonary embolism Type 2 diabetes mellitus with diabetic nephropathy, with long-term current use of insulin (HCC) documented in this encounter Care Teams Hvac Manager Relationship Specialty Start Date End Date Christiano Felton MD [address] [place] [address] PCP - General 12/30/1997 documented as of this encounter
--- OUTSIDE RECORDS SUMMARY | 2024-05-25 14:33 | External Medical Summary | Summary of Care ---
Author Name Unknown Organization [facility] Address [address] [place] [address] Phone [phone] Care Team Providers Care Field Administrator Name Role Phone Christiano Felton MD Primary Care Provider [phone] Reason for Visit * Reason Comments Outpatient Testing Encounter Details Date Type Department Care Team (Late st Contact Info) Description 03/27/2024 3:00 PM EDT Laboratory Laboratory, [place] [address] [place] [address] [place], Laboratory [address] [place] [address] ThisNext Other*[id number]; Osteoporosis due to aromatase inhibitor; Malignant neoplasm [...] stage 1 chronic kidney disease, unspecified whether chcf insulin use (HCC) Use as directed. Use [...] (Jantoven)Indication s:History of pulmonary embolism,Anticoagula tion management encounter,alf current use of anticoagulant therapy TAKE ONE [...] Pharmacy Call Center [address] [place] [address] [facility] 58 60 [facility] [place] [address] 04/04/2024 1:15 PM EDT Imaging Radiology [facility] 1st [facility], [address] [place] [address] 06/07/2024 1:00 PM EDT Office Visit [address] [place] [phone] Christiano Felton MD [address] [place] [address] 06/29/2024 2:00 PM EDT Office Visit Cardiology, [facility] [address] [facility] [place] [address] Christiano Caballero, PA-C [facility] [place] [address] 08/10/2024 12:00 PM EDT Laboratory Laboratory [facility] [place] [address] [place] [phone] Deisy Wayne [address] [place] [address] 08/10/2024 1:00 PM EDT Immunization/Injection Hematology/Oncology Treatment, [place] [address] [place] [phone] Nurse, Med [address] [place] [address] 08/27/2024 3:00 PM EDT Imaging Radiology, [facility] 2520 [facility] [place] [address] 09/13/2024 9:20 AM EDT Laboratory Laboratory 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, estrogen receptor positive (HCC) Iron deficiency anemia, unspecified iron deficiency anemia type History of pulmonary embolism 03/27/2024 3:06 PM EDT COMPREHENSIVE METABOLIC PANEL Lab STAT 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, estrogen receptor positive (HCC) Iron deficiency anemia, unspecified iron deficiency anemia type History of pulmonary embolism 03/27/2024 3:06 PM EDT IRON SCREEN, INCLUDING TIBC Lab STAT 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, estrogen receptor positive (HCC) Iron deficiency anemia, unspecified iron deficiency anemia type History of pulmonary embolism 03/27/2024 3:06 PM EDT FERRITIN Lab STAT 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, estrogen receptor positive (HCC) Iron deficiency anemia, unspecified iron deficiency anemia type History of pulmonary embolism 03/27/2024 3:06 PM EDT VITAMIN B12 Lab STAT 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, estrogen receptor positive (HCC) Iron deficiency anemia, unspecified iron deficiency anemia type History of pulmonary embolism 03/27/2024 3:06 PM EDT FOLIC ACID Lab STAT 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, estrogen receptor positive (HCC) Iron deficiency anemia, unspecified iron deficiency anemia type History of pulmonary embolism 03/27/2024 3:06 PM EDT MYCODE SST1 Lab Routine MyCode Research Other*[id number] 03/27/2024 3:06 PM EDT MYCODE SST2 Lab Routine MyCode Research Other*[id number] 03/27/2024 3:06 PM EDT CBC Lab STAT 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, estrogen receptor positive (HCC) Iron deficiency anemia, unspecified iron deficiency anemia type History of pulmonary embolism 03/27/2024 3:06 PM EDT DIFFERENTIAL, AUTOMATED Lab STAT 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, estrogen receptor positive (HCC) Iron deficiency anemia, unspecified iron deficiency anemia type History of pulmonary embolism 03/27/2024 3:06 PM EDT Scheduled Orders Name Type Priority Associated Diagnoses Orde r Schedule MYCODE SST1 Lab Routine MyCode Research Other*[id number] Ordered: 03/27/2024 MYCODE SST2 Lab Routine MyCode Research Other*[id number] Ordered: 03/27/2024 CBC Lab STAT Osteoporosis due [...] 08/10/2024 02/08/2024, 0101/2024, 09/08/2023, Additional history exists Diabetic Eye Exam 11/16/2024 11/16/2023, , 05/04/2021, Additional history exists CKD HGB USE SMARTSET 85622 02/07/202502/07, 02/08/2024, 10/10/2023, Additional history exists CKD PHOS USE SMARTSET 89176 02/07/2025 03/05/2024, 08/05/2023, 05/26/2023, Additional history exists Diabetic Foot Exam 03/27/2025 03/27/2024, 0 06/02/2022, 01/06/2021, Additional history exists DTaP,Tdap,and Td Vaccines (3 - Td or Tdap) 03/27/2034 03/27/2024, 01/21/2014, 06/14/1988 Pneumococcal Vaccine: 65+ Years Completed 08/09/2017, 07/24/2008, 08/12/2003 VITAMIN D LEVEL ONCE IN A LIFETIME-USE SMARTSET# 25449 Completed 11/02/2017, 08/29/2013, 06/20/2012, Additional history exists [...] this encounter Visit Diagnoses Diagnosis MyCode Research Other*[id number] Osteoporosis due to aromatase inhibitor Other osteoporosis Malignant neoplasm of upper-outer quadrant of left breast in female, estrogen receptor positive (HCC) Iron deficiency anemia, unspecified iron deficiency anemia type History of pulmonary embolism Personal history of pulmonary embolism Type 2 diabetes mellitus with diabetic nephropathy, with long-term current use of insulin (HCC) documented in this encounter Care Teams Field Administrator Relationship Specialty Start Date End Date Christiano Felton MD [address] [place] [address] PCP - General 12/30/1997 documented as of this encounter
--- OUTSIDE RECORDS SUMMARY | 2024-05-25 14:33 | External Medical Summary ---
Author Name Unknown Address Unknown Organization K01:LABORATORY [facility] - [address] [place] [address] Laboratory Report Ordering Provider Test Date Status GERARDO SINHA 03/27/2024 14:57:20 Final Observation Date Value Abnormality Reference (Units ) Status MYCODE SPECIMEN-SST 03/27/2024 14:57:20 Freezing of extracted DNA, whole blood and/or serum. Final Performing Location LABORATORY C - [address] [place] [address]
--- OUTSIDE RECORDS SUMMARY | 2024-05-25 14:33 | External Medical Summary | Summary of Care ---
Author Name Unknown Organization [facility] Address [address] [place] [address] Phone [phone] Care Team Providers Care Chief I Dispatcher Name Role Phone Christiano Felton MD Primary Care Provider [phone] Reason for Visit * Reason Comments Outpatient Testing Encounter Details Date Type Department Care Team (Late st Contact Info) Description 03/27/2024 3:00 PM EDT Laboratory Laboratory, [place] [address] [place] [address] [place], Laboratory [address] [place] [address] [place] Other*[id number]; Osteoporosis due to aromatase inhibitor; Malignant neoplasm [...] stage 1 chronic kidney disease, unspecified whether fci insulin use (HCC) Use as directed. Use [...] (Jantoven)Indication s:History of pulmonary embolism,Anticoagula tion management encounter,senior care current use of anticoagulant therapy TAKE ONE [...] Obesity Taxonomy ICD-10 update of inactive term senior care current use of anticoagulant therapy 1 11/25/2008 [...] Pharmacy Call Center [address] [place] [address] [facility] 58 60 [facility] [place] [address] 04/04/2024 1:15 PM EDT Imaging Radiology [facility] 1st [facility], [address] [place] [address] 06/07/2024 1:00 PM EDT Office Visit [address] [place] [address] Christiano Felton MD [address] [place] [address] 06/29/2024 2:00 PM EDT Office Visit Cardiology, [facility] [place] [address] Christiano Caabllero, PA-C [address] [facility] [place] [address] 08/10/2024 12:00 PM EDT Laboratory Laboratory [facility] [address] [place] [phone] Deisy Wayne [address] [place] [address] 08/10/2024 1:00 PM EDT Immunization/Injection Hematology/Oncology Treatment, [place] [address] [facility] [place] [phone] Nurse, Med 200 [facility] [place] [address] 08/27/2024 3:00 PM EDT Imaging Radiology, [facility] 2520 [facility] [place] [address] 09/13/2024 9:20 AM EDT Laboratory Laboratory [facility] [place] [address] [place] [phone] Deisy Wayne [address] [facility] [place] [address] 09/20/2024 3:00 PM EST Office Visit Hematology/Oncology [facility] [place] [address] [place] [phone] Caroline Guerrier CRNP 400 [facility] [place] [id number] Scheduled Orders Name Type Priority Associated Diagnoses Orde r Schedule MYCODE SST1 Lab Routine MyCode Research Other*[id number] Ordered: 03/27/2024 MYCODE SST2 Lab Routine My[employer] Other*[id number] Ordered: 03/27/2024 CBC Lab STAT Osteoporosis due [...] 03/27/2024 MYCODE SST1 Lab Routine [employer] Other*[id number] Ordered: 03/27/2024 MYCODE SST2 Lab Routine [employer] Other*[id number] Ordered: 03/27/2024 CBC Lab STAT Osteoporosis due [...] Additional history exists CKD HGB USE SMARTSET 58079 02/07/202502/07, 02/08/2024, 10/10/2023, Additional history exists CKD PHOS USE SMARTSET 32279 02/07/2025 03/2 05/2024, 08/05/2023, 05/26/2023, Additional history exists Diabetic Foot Exam 03/27/2025 03/27/2024, 0 06/02/2022, 01/06/2021, Additional history exists DTaP,Tdap,and Td Vaccines (3 - Td or Tdap) 03/27/2034 03/27/2024, 01/21/2014, 06/14/1988 Pneumococcal Vaccine: 65+ Years Completed 08/09/2017, 07/24/2008, 08/12/2003 VITAMIN D LEVEL ONCE IN A LIFETIME-USE SMARTSET# 20150 Completed 11/02/2017, 08/29/2013, 06/20/2012, Additional history exists [...] this encounter Visit Diagnoses Diagnosis MyCode Research Other*[id number] Osteoporosis due to aromatase inhibitor Other osteoporosis Malignant neoplasm of upper-outer quadrant of left breast in female, estrogen receptor positive (HCC) Iron deficiency anemia, unspecified iron deficiency anemia type History of pulmonary embolism Personal history of pulmonary embolism Type 2 diabetes mellitus with diabetic nephropathy, with long-term current use of insulin (HCC) documented in this encounter Care Teams Chief I Dispatcher Relationship Specialty Start Date End Date Christiano Felton MD [address] [place] [address] PCP - General 12/30/1997 documented as of this encounter
--- OUTSIDE RECORDS SUMMARY | 2024-05-25 14:33 | External Medical Summary | Summary of Care ---
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 Use [...] MG Oral Tablet (Lopressor)Indicatio ns:Paroxysmal atrial flutter ([facility]),Aortic valve stenosis, etiology of cardiac valve disease unspecified,HTN, goal below 140/90 Take 0.5 Tablets by mouth in the morning and 0.5 Tablets before bedtime. 90 Tablet 3 11/30/2023 Active Insulin Glargine 100 UNIT/ML Subcutaneous Solution (Lantus)Indications: Type 2 diabetes mellitus with hemoglobin A1c goal of less than 8.0% ([facility]) INJECT 36 UNITS UNDER THE SKIN IN THE MORNING AND 42 UNITS IN THE EVENING 90 mL 1 12/07/2023 Active Lisinopril 10 MG Oral Tablet (Prinivil)Indication s:Type 2 diabetes mellitus with stage 3b chronic kidney disease, with long-term current use of insulin ([facility]),HTN, goal below 140/90 TAKE 1 TABLET BY MOUTH ONCE DAILY 90 Tablet 2 12/11/2023 Active Pregabalin 150 MG Oral Capsule (Lyrica)Indications: Type 2 diabetes mellitus with diabetic nephropathy, with long-term current use of insulin ([facility]) Take 1 Capsule by mouth in the morning and 1 Capsule before bedtime. 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 30 Tablet 0 03/13/2024 Active documented as of this encounter (statuses [...] Obesity Taxonomy ICD-10 update of inactive term correction current use of anticoagulant therapy 1 11/25/2008 [...] Care Team (Latest Contact Info) Description 03/27/2024 7:00 AM EDT Laboratory Lab Mobile Phlebotomy [facility] [address] [place] [address] [facility], Gml Mobile Home Draw [address] [place] [address] correction current use of anticoagulant therapy 03/27/2024 1:40 PM EDT Office Visit [facility] [address] [place] [address] Christiano Felton MD [address] [place] [address] 03/28/2024 6:00 AM EDT Anticoagulation Pharmacy Call Center [place] [address] [place] [address] [facility] [address] [facility] [place] [address] 04/04/2024 1:15 PM EDT Imaging Radiology [address] 132 [facility] [place] [address] 08/10/2024 12:00 PM EDT Laboratory Laboratory [facility] [address] [place], [place] [phone] [facility] [address] [facility] [place], [place] [address] 08/10/2024 1:00 PM EDT Immunization/Injection Hematology/Oncolo gy Treatment, [place] [address] [place] [phone] Nurse, Med 4 [address] [place] [address] 08/27/2024 3:00 PM EDT Imaging Radiology, [facility] 2520 [facility] [address] 09/13/2024 9:20 AM EDT Laboratory Laboratory [facility] [place] [address] [place] [address] Deisy [address] [facility] [place] [address] 09/20/2024 3:00 PM EST Office Visit Hematology/Oncolo gy [facility] [place] [address] [place], [place] [phone] Caroline Guerrier CRNP [address] [place] [address] Scheduled Orders Name Type Priority Associated Diagnoses Orde r Schedule PT INR Lab Routine correction current use of anticoagulant therapy Expected: 03/27/2024, Expires: 03/27/2025 Health Maintenance Due Date Last Done Comments Albumin/Creatinine Ratio 06/02/20232 022, 01/24/2019, 02/08/2018, Additional history exists Diabetic Foot Exam 06/02/2023 06/02/2022, 0 01/06/2021, 01/23/2019, Additional history exists COVID-19 Vaccine ( season) 2023 HbA1c 12/30/2023 06/29/2023, 01/12, 02/03/2022, Additional history exists DTaP,Tdap,and Td Vaccines (2 - Td or Tdap) 01/22/2024 01/21/2014, 06/14/1988 DXA Scan 06/02/2024 06/02/2022 (Decl ined), 03/26/2019, 03/21/2017, Additional history exists GFR 08/10/2024 02/08/2024, 01/0 01/2024, 09/08/2023, Additional history exists Diabetic Eye Exam 11/16/2024 11/16/2023, , 05/04/2021, Additional history exists CKD HGB USE SMARTSET 03605 02/07/202502/07, 02/08/2024, 10/10/2023, Additional history exists CKD PHOS USE SMARTSET 25072 02/07/202501/13, 08/05/2023, 05/26/2023, Additional history exists Pneumococcal Vaccine: 65+ Years Completed 08/09/2017, 07/24/2008, 08/12/2003 VITAMIN D LEVEL ONCE IN A LIFETIME-USE SMARTSET# 15998 Completed 11/02/2017, 08/29/2013, 06/20/2012, Additional history exists [...] as of this encounter 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
--- OUTSIDE RECORDS SUMMARY | 2024-05-25 14:33 | External Medical Summary ---
Author Name Unknown Address Unknown Organization K0G:LABORATORY [facility] [address] [place] [address] Laboratory Report Ordering Provider Test Date Status MAXIMILIAN BRINK 03/27/2024 08:37:00 Final Warfarin Therapy
INR: 2 .0-3.0 conventional anticoagulation
INR: 2.5- 3.5 high intensity anticoagulation Observation Date Value Abnormality Reference (Units ) Status PT 03/27/2024 08:37:00 23.3 Above high normal 11 .6-15.2 (seconds) Final INR 03/27/2024 08:37:00 2.1 Above high normal 0. 8-1.2 Final Performing Location [facility]ORY [facility] [address] [place] [address]
--- OUTSIDE RECORDS SUMMARY | 2024-05-25 14:33 | External Medical Summary | Summary of Care ---
Author Name Unknown Organization [facility] Address [address] [place] [address] Phone [phone] Care Team Providers Care Sand Slinger Name Role Phone Christiano Felton MD Primary Care Provider [phone] Reason for Visit * Reason Comments Outpatient Testing Encounter Details Date Type Department Care Team (Late st Contact Info) Description 03/27/2024 3:00 PM EDT Laboratory Laboratory, [place] [address] [place] [address] [place], Laboratory [address] [place] [address] [employer] Other*[id number]; Osteoporosis due to aromatase inhibitor; Malignant neoplasm [...] stage 1 chronic kidney disease, unspecified whether longterm insulin use (HCC) Use as directed. Use [...] (Jantoven)Indication s:History of pulmonary embolism,Anticoagula tion management encounter,group home current use of anticoagulant therapy TAKE [...] Obesity Taxonomy ICD-10 update of inactive term group home current use of anticoagulant therapy 1 11/25/2008 [...] Pharmacy Call Center [address] [place] [address] [facility] 58 60 [facility] [place] [address] 04/04/2024 1:15 PM EDT Imaging Radiology [facility] 1st [facility], [address] [place] [address] 06/07/2024 1:00 PM EDT Office Visit [address] [place] [address] Christiano Felton MD [address] [place] [address] 06/29/2024 2:00 PM EDT Office Visit Cardiology, [facility] [address] [facility] [place] [address] Christiano Caballero, PA-C [address] [facility] [place] [address] 08/10/2024 12:00 PM EDT Laboratory Laboratory [facility] [place] [address] [place] [phone] Deisy Wayne [address] [facility] [place] [address] 08/10/2024 1:00 PM EDT Immunization/Injection Hematology/Oncology Treatment, [place] [address] [facility] [address] [place] [phone] Nurse, Med 200 [facility] [place] [address] 08/27/2024 3:00 PM EDT Imaging Radiology, [place] [id number] [facility] [place] [address] 09/13/2024 9:20 AM EDT Laboratory Laboratory [facility] [place] [address] [place] [phone] Deisy Wayne [address] [facility] [place] [address] 09/20/2024 3:00 PM EST Office Visit Hematology/Oncology [facility] [place] [address] [place] [phone] Caroline Guerrier CRNP 400 [facility] [place] [phone] Pending Results Name Type Priority Associated Diagnoses Date /Time COMPREHENSIVE METABOLIC PANEL Lab STAT Osteoporosis due [...] Schedule MYCODE SST1 Lab Routine [employer] Other*[id number] Ordered: 03/27/2024 MYCODE SST2 Lab Routine [employer] Other*[id number] Ordered: 03/27/2024 CBC Lab STAT Osteoporosis due [...] 03/27/2024 MYCODE SST1 Lab Routine [employer] Other*[id number] Ordered: 03/27/2024 MYCODE SST2 Lab Routine [employer] Other*[id number] Ordered: 03/27/2024 CBC Lab STAT Osteoporosis due [...] 08/10/2024 02/08/2024, 01/2024, 09/08/2023, Additional history exists Diabetic Eye Exam 11/16/2024 11/16/2023, , 05/04/2021, Additional history exists CKD HGB USE SMARTSET 55695 02/07/202502/07, 02/08/2024, 10/10/2023, Additional history exists CKD PHOS USE SMARTSET 74789 02/07/2025/2 05/2024, 08/05/2023, 05/26/2023, Additional history exists Diabetic Foot Exam 03/27/2025 03/27/2024, 0 06/02/2022, 01/06/2021, Additional history exists DTaP,Tdap,and Td Vaccines (3 - Td or Tdap) 03/27/2034 03/27/2024, 01/21/2014, 06/14/1988 Pneumococcal Vaccine: 65+ Years Completed 08/09/2017, 07/24/2008, 08/12/2003 VITAMIN D LEVEL ONCE IN A LIFETIME-USE SMARTSET# 12895 Completed 11/02/2017, 08/29/2013, 06/20/2012, Additional history exists [...] this encounter Visit Diagnoses Diagnosis [employer] Other*[id number] Osteoporosis due to aromatase inhibitor Other osteoporosis Malignant neoplasm of upper-outer quadrant of left breast in female, estrogen receptor positive (HCC) Iron deficiency anemia, unspecified iron deficiency anemia type History of pulmonary embolism Personal history of pulmonary embolism Type 2 diabetes mellitus with diabetic nephropathy, with long-term current use of insulin (HCC) documented in this encounter Care Teams Sand Slinger Relationship Specialty Start Date End Date Christiano Felton MD [address] [place] [address] PCP - General 12/30/1997 documented as of this encounter
--- OUTSIDE RECORDS SUMMARY | 2024-05-25 14:33 | External Medical Summary | Summary of Care ---
Author Name Unknown Organization [facility] Address [address] [place] [address] Phone [phone] Care Team Providers Care Material Hauler Name Role Phone Christiano Felton MD Primary Care Provider [phone] Reason for Visit * Reason Comments Outpatient Testing Encounter Details Date Type Department Care Team (Late st Contact Info) Description 03/27/2024 3:00 PM EDT Laboratory Laboratory, [place] [address] [place] [address] [place], Laboratory [address] [place] [address] [employer] Other*[id number]; Osteoporosis due to aromatase inhibitor; Malignant neoplasm [...] s:History of pulmonary embolism,Anticoagula tion management encounter,intermediate current use of anticoagulant therapy TAKE ONE [...] Taxonomy ICD-10 update of inactive term intermediate current use of anticoagulant therapy 1 11/25/2008 [...] Pharmacy Call Center [address] [place] [address] [facility] 58 60 [facility] [place] [address] 04/04/2024 1:15 PM EDT Imaging Radiology [facility] 1st [facility], [address] [place] [address] 06/07/2024 1:00 PM EDT Office Visit [address] [place] [address] Christiano Felton MD [address] [place] [address] 06/29/2024 2:00 PM EDT Office Visit Cardiology, [facility] [place] [address] Christiano Caballero, PA-C [address] [facility] [address] 08/10/2024 12:00 PM EDT Laboratory Laboratory [facility] [address] [place] [phone] Deisy Wayne [address] [place] [address] 08/10/2024 1:00 PM EDT Immunization/Injection Hematology/Oncology Treatment, [place] [address] [facility] [address] [place] [phone] Nurse, Med 200 [facility] [place] [address] 08/27/2024 3:00 PM EDT Imaging Radiology, [facility] 2520 [facility] [place] [address] 09/13/2024 9:20 AM EDT Laboratory [facility] [place] [address] [place] [phone] Deisy Wayne [address] [facility] [place] [address] 09/20/2024 3:00 PM EST Office Visit Hematology/Oncology [facility] [place] [address] [place] [phone] Caroline Guerrier CRNP 400 [facility] [place] [phone] Scheduled Orders Name Type Priority Associated Diagnoses Orde r Schedule MYCODE SST1 Lab Routine [employer] Other*[id number] Ordered: 03/27/2024 MYCODE SST2 Lab Routine [employer] Other*[id number] Ordered: 03/27/2024 CBC Lab STAT Osteoporosis due [...] 03/27/2024 MYCODE SST1 Lab Routine [employer] Other*[id number] Ordered: 03/27/2024 MYCODE SST2 Lab Routine [employer] Other*[id number] Ordered: 03/27/2024 CBC Lab STAT Osteoporosis due [...] Additional history exists CKD HGB USE SMARTSET 99703 02/07/202502/07, 02/08/2024, 10/10/2023, Additional history exists CKD PHOS USE SMARTSET 28728 02/07/2025 03/2 05/2024, 08/05/2023, 05/26/2023, Additional history exists Diabetic Foot Exam 03/27/2025 03/27/2024, 0 06/02/2022, 01/06/2021, Additional history exists DTaP,Tdap,and Td Vaccines (3 - Td or Tdap) 03/27/2034 03/27/2024, 01/21/2014, 06/14/1988 Pneumococcal Vaccine: 65+ Years Completed 08/09/2017, 07/24/2008, 08/12/2003 VITAMIN D LEVEL ONCE IN A LIFETIME-USE SMARTSET# 55632 Completed 11/02/2017, 08/29/2013, 06/20/2012, Additional history exists [...] this encounter Visit Diagnoses Diagnosis [employer] Other*[id number] Osteoporosis due to aromatase inhibitor Other osteoporosis Malignant neoplasm of upper-outer quadrant of left breast in female, estrogen receptor positive (HCC) Iron deficiency anemia, unspecified iron deficiency anemia type History of pulmonary embolism Personal history of pulmonary embolism Type 2 diabetes mellitus with diabetic nephropathy, with long-term current use of insulin (HCC) documented in this encounter Care Teams Material Hauler Relationship Specialty Start Date End Date Christiano Felton MD [address] [place] [address] PCP - General 12/30/1997 documented as of this encounter
--- OUTSIDE RECORDS SUMMARY | 2024-05-25 14:33 | External Medical Summary ---
Author Name Unknown Address Unknown Organization K01:[facility] [place] [address] [facility] [address] Laboratory Report Ordering Provider Test Date Status VIKTOR QUINONEZ 03/27/2024 14:57:20 Final Observation Date Value Abnormality Reference (Units ) Status HbA1C 03/27/2024 14:57:20 6.7 Above high normal 4. 0-5.6 (%) Final The use of HbA1c to monitor glycemic status is based on normal hemoglobin and HbA composition. This test should not be used in patients with abnormal hemoglobin that affects the half life of the red blood cell or the in vivo glycation rates. Glucose, estimated average 03/27/2024 14:57:20 146 Above high normal <126 (mg/dL) Matias pratt Performing Location [facility] [address] [place] [address]
--- OUTSIDE RECORDS SUMMARY | 2024-05-25 14:33 | External Medical Summary | Summary of Care ---
Author Name Unknown Organization [facility] Address [address] [place] [address] Phone [phone] Care Team Providers Care Milling Operator Name Role Phone Christiano Felton MD Primary Care Provider [phone] Reason for Visit * Reason Comments Outpatient Testing Encounter Details Date Type Department Care Team (Late st Contact Info) Description 03/27/2024 3:00 PM EDT Laboratory Laboratory, [place] [address] [place] [address] [place], Laboratory [address] [place] [address] [employer] Other*[id number]; Osteoporosis due to aromatase inhibitor; Malignant neoplasm [...] stage 1 chronic kidney disease, unspecified whether assisted insulin use (HCC) Use as directed. Use [...] (Jantoven)Indication s:History of pulmonary embolism,Anticoagula tion management encounter,residential current use of anticoagulant therapy TAKE ONE [...] Obesity Taxonomy ICD-10 update of inactive term residential current use of anticoagulant therapy 1 11/25/2008 [...] Pharmacy Call Center [address] [place] [address] [facility] 58 60 [facility] [place] [address] 04/04/2024 1:15 PM EDT Imaging Radiology [facility] 1st [facility], [address] [place] [address] 06/07/2024 1:00 PM EDT Office Visit [address] [place] [address] Christiano Felton MD [address] [place] [address] 06/29/2024 2:00 PM EDT Office Visit Cardiology, [facility] [address] [facility] [place] [address] Christiano Caballero, PA-C [facility] [place] [address] 08/10/2024 12:00 PM EDT Laboratory Laboratory [facility] [place] [address] [place] [phone] Deisy Wayne [address] [place] [address] 08/10/2024 1:00 PM EDT Immunization/Injection Hematology/Oncology Treatment, [place] [address] [facility] [facility] [address] [place] [phone] Nurse, Med [address] [place] [address] 08/27/2024 3:00 PM EDT Imaging Radiology, [facility] 25[address] [facility] [place] [address] 09/13/2024 9:20 AM EDT Laboratory Laboratory [facility] [place] [address] [place] [phone] Deisy Wayne [address] [facility] [place] [address] 09/20/2024 3:00 PM EST Office Visit Hematology/Oncology [facility] Rosana [place] [address] [place] [phone] Caroline Guerrier CRNP 400 [facility] [place] [phone] Pending Results Name Type Priority Associated Diagnoses Date /Time MYCODE SUBSEQUENT ADULT Lab Routine [employer] Other*[id number] 03/27/2024 3:06 PM EDT COMPREHENSIVE METABOLIC PANEL [...] EDT MYCODE SST1 Lab Routine [employer] Other*[id number] 03/27/2024 3:06 PM EDT Scheduled Orders Name Type Priority Associated Diagnoses Orde r Schedule MYCODE SST1 Lab Routine [employer] Other*[id number] Ordered: 03/27/2024 MYCODE SST2 Lab Routine [employer] Other*[id number] Ordered: 03/27/2024 CBC Lab STAT Osteoporosis due [...] History of pulmonary embolism Ordered: 03/27/2024 MYCODE SST2 Lab Routine [employer] Other*[id number] Ordered: 03/27/2024 CBC Lab STAT Osteoporosis due [...] Additional history exists CKD HGB USE SMARTSET 29070 02/07/202502/07, 02/08/2024, 10/10/2023, Additional history exists CKD PHOS USE SMARTSET 42194 02/07/2025/05/2024, 08/05/2023, 05/26/2023, Additional history exists Diabetic Foot Exam 03/27/2025 03/27/2024, 0 06/02/2022, 01/06/2021, Additional history exists DTaP,Tdap,and Td Vaccines (3 - Td or Tdap) 03/27/2034 03/27/2024, 01/21/2014, 06/14/1988 Pneumococcal Vaccine: 65+ Years Completed 08/09/2017, 07/24/2008, 08/12/2003 VITAMIN D LEVEL ONCE IN A LIFETIME-USE SMARTSET# 44013 Completed 11/02/2017, 08/29/2013, 06/20/2012, Additional history exists [...] this encounter Visit Diagnoses Diagnosis [employer] Other*[id number] Osteoporosis due to aromatase inhibitor Other osteoporosis Malignant neoplasm of upper-outer quadrant of left breast in female, estrogen receptor positive (HCC) Iron deficiency anemia, unspecified iron deficiency anemia type History of pulmonary embolism Personal history of pulmonary embolism Type 2 diabetes mellitus with diabetic nephropathy, with long-term current use of insulin (HCC) documented in this encounter Care Teams Milling Operator Relationship Specialty Start Date End Date Christiano Felton MD [address] [place] [address] PCP - General 12/30/1997 documented as of this encounter
--- OUTSIDE RECORDS SUMMARY | 2024-05-25 14:33 | External Medical Summary | Summary of Care ---
Author Name Unknown Organization [facility] Address [address] [place] [address] Phone [phone] Care Team Providers Care Cloth Calender Name Role Phone Christiano Felton MD Primary Care Provider [phone] Reason for Visit * Reason Comments Outpatient Testing Encounter Details Date Type Department Care Team (Late st Contact Info) Description 03/27/2024 3:00 PM EDT Laboratory Laboratory, [place] [address] [place] [address] [place], Laboratory [address] [place] [address] [employer] Other*[id number]; Osteoporosis due to aromatase inhibitor; Malignant neoplasm [...] disease, unspecified whether senior care insulin use (HCC) Use as directed. Use [...] (Jantoven)Indication s:History of pulmonary embolism,Anticoagula tion management encounter,half-way current use of anticoagulant therapy TAKE ONE [...] Pharmacy Call Center [address] [place] [address] [facility] 58 60 [facility] [place] [address] 04/04/2024 1:15 PM EDT Imaging Radiology [facility] 1st [facility], [address] [place] [address] 06/07/2024 1:00 PM EDT Office Visit [address] [place] [address] Christiano Felton MD [address] [place] [address] 06/29/2024 2:00 PM EDT Office Visit Cardiology, [facility] [address] [facility] [place] [address] Christiano Caballero, PA-C [facility] [place] [address] 08/10/2024 12:00 PM EDT Laboratory Laboratory [facility] [place] [address] [place] [phone] Deisy Wayne [address] [place] [address] 08/10/2024 1:00 PM EDT Immunization/Injection Hematology/Oncology Treatment, [place] [address] [place] [phone] Nurse, Med [address] [place] [address] 08/27/2024 3:00 PM EDT Imaging Radiology, [facility] 25[address] [facility] [place] [address] 09/13/2024 9:20 AM EDT Laboratory Laboratory [facility] [place] [address] [place] [phone] Deisy Wayne [address] [facility] [place] [address] 09/20/2024 3:00 PM EST Office Visit Hematology/Oncology [facility] [place] [address] [place] [phone] Caroline Guerrier CRNP 400 [facility] [place] [id number] Pending Results Name Type Priority Associated Diagnoses Date /Time MYCODE SUBSEQUENT ADULT Lab Routine [employer] Other*[id number] 03/27/2024 3:06 PM EDT COMPREHENSIVE METABOLIC PANEL [...] EDT MYCODE SST1 Lab Routine [employer] Other*[id number] 03/27/2024 3:06 PM EDT MYCODE SST2 Lab Routine [employer] Other*[id number] 03/27/2024 3:06 PM EDT Scheduled Orders Name Type Priority Associated Diagnoses Orde r Schedule MYCODE SST1 Lab Routine [employer] Other*[id number] Ordered: 03/27/2024 MYCODE SST2 Lab Routine [employer] Other*[id number] Ordered: 03/27/2024 CBC Lab STAT Osteoporosis due [...] type History of pulmonary embolism Ordered: 03/27/2024 CBC Lab STAT Osteoporosis due [...] Additional history exists CKD HGB USE SMARTSET 03870 02/07/202502/07, 02/08/2024, 10/10/2023, Additional history exists CKD PHOS USE SMARTSET 45510 02/07/2025 03/2 05/2024, 08/05/2023, 05/26/2023, Additional history exists Diabetic Foot Exam 03/27/2025 03/27/2024, 0 06/02/2022, 01/06/2021, Additional history exists DTaP,Tdap,and Td Vaccines (3 - Td or Tdap) 03/27/2034 03/27/2024, 01/21/2014, 06/14/1988 Pneumococcal Vaccine: 65+ Years Completed 08/09/2017, 07/24/2008, 08/12/2003 VITAMIN D LEVEL ONCE IN A LIFETIME-USE SMARTSET# [id number] Completed 11/02/2017, 08/29/2013, 06/20/2012, Additional history exists [...] this encounter Visit Diagnoses Diagnosis [employer] Other*[id number] Osteoporosis due to aromatase inhibitor Other osteoporosis Malignant neoplasm of upper-outer quadrant of left breast in female, estrogen receptor positive (HCC) Iron deficiency anemia, unspecified iron deficiency anemia type History of pulmonary embolism Personal history of pulmonary embolism Type 2 diabetes mellitus with diabetic nephropathy, with long-term current use of insulin (HCC) documented in this encounter Care Teams Cloth Calender Relationship Specialty Start Date End Date Christiano Felton MD [address] [place] [address] PCP - General 12/30/1997 documented as of this encounter
--- OUTSIDE RECORDS SUMMARY | 2024-05-25 14:33 | External Medical Summary | Summary of Care ---
Author Name Unknown Organization [facility] Address [address] [place] [address] Phone [phone] Care Team Providers Care Knitter Mechanic Name Role Phone Christiano Felton MD Primary Care Provider [phone] Reason for Visit * Reason Comments Outpatient Testing Encounter Details Date Type Department Care Team (Late st Contact Info) Description 03/27/2024 3:00 PM EDT Laboratory Laboratory, [place] [address] [place] [address] [place], Laboratory [address] [place] [address] [employer] Other*[id number]; Osteoporosis due to aromatase inhibitor; Malignant neoplasm [...] stage 1 chronic kidney disease, unspecified whether shelter insulin use (HCC) Use as directed. Use [...] Pharmacy Call Center [address] [place] [address] [facility] 58 60 [facility] [place] [address] 04/04/2024 1:15 PM EDT Imaging Radiology [facility] 1st [facility], [address] [place] [address] 06/07/2024 1:00 PM EDT Office Visit [address] [place] [address] Christiano Felton MD [address] [place] [address] 06/29/2024 2:00 PM EDT Office Visit Cardiology, [facility] [place] [address] Christiano Caballero, PA-C [address] [facility] [place] [address] 08/10/2024 12:00 PM EDT Laboratory Laboratory [facility] [address] [place] [phone] Deisy Wayne [address] [place] [address] 08/10/2024 1:00 PM EDT Immunization/Injection Hematology/Oncology Treatment, [place] [address] [facility] [address] [place] [phone] Nurse, Med 200 [facility] [place] [address] 08/27/2024 3:00 PM EDT Imaging Radiology, [facility] 2520 [facility] [place] [address] 09/13/2024 9:20 AM EDT Laboratory Laboratory [facility] [place] [address] [place] [phone] Deisy Wayne [address] [facility] [place] [address] 09/20/2024 3:00 PM EST Office Visit Hematology/Oncology [facility] [place] [address] [place] [phone] Caroline Guerrier CRNP 400 [facility] [place] [id number] Scheduled Orders Name Type Priority Associated Diagnoses Orde r Schedule MYCODE SST1 Lab Routine [employer] Other*[id number] Ordered: 03/27/2024 MYCODE SST2 Lab Routine [employer] Other*[id number] Ordered: 03/27/2024 CBC Lab STAT Osteoporosis due [...] 03/27/2024 MYCODE SST1 Lab Routine [employer] Other*[id number] Ordered: 03/27/2024 MYCODE SST2 Lab Routine [employer] Other*[id number] Ordered: 03/27/2024 CBC Lab STAT Osteoporosis due [...] Additional history exists CKD HGB USE SMARTSET 65983 02/07/202502/07, 02/08/2024, 10/10/2023, Additional history exists CKD PHOS USE SMARTSET 67524 02/07/2025 03/2 05/2024, 08/05/2023, 05/26/2023, Additional history exists Diabetic Foot Exam 03/27/2025 03/27/2024, 0 06/02/2022, 01/06/2021, Additional history exists DTaP,Tdap,and Td Vaccines (3 - Td or Tdap) 03/27/2034 03/27/2024, 01/21/2014, 06/14/1988 Pneumococcal Vaccine: 65+ Years Completed 08/09/2017, 07/24/2008, 08/12/2003 VITAMIN D LEVEL ONCE IN A LIFETIME-USE SMARTSET# [id number] Completed 11/02/2017, 08/29/2013, 06/20/2012, Additional history exists [...] this encounter Visit Diagnoses Diagnosis [employer] Other*[id number] Osteoporosis due to aromatase inhibitor Other osteoporosis Malignant neoplasm of upper-outer quadrant of left breast in female, estrogen receptor positive (HCC) Iron deficiency anemia, unspecified iron deficiency anemia type History of pulmonary embolism Personal history of pulmonary embolism Type 2 diabetes mellitus with diabetic nephropathy, with long-term current use of insulin (HCC) documented in this encounter Care Teams Knitter Mechanic Relationship Specialty Start Date End Date Christiano Felton MD [address] [place] [address] PCP - General 12/30/1997 documented as of this encounter
--- OUTSIDE RECORDS SUMMARY | 2024-05-25 14:34 | External Medical Summary | Summary of Care ---
Author Name Unknown Organization [facility] Address [address] [facility] [place] [address] Phone [phone] Care Team Providers Care Presser First Name Role Phone Christiano Felton MD Primary Care Provider [phone] Reason for Visit * Reason Comments Dosage Adjustment Via Phone (anticoag Cl inic) Encounter Details Date Type Department Care Team (Latest Contact Info) Description 03/21/2024 6:00 AM EDT Anticoagulation Pharmacy Call Center [address] [place] [address] [facility] 58 60 [facility] [place] [address] History of pulmonary embolism*; Typical atrial flutter (HCC) Allergies Active Allergy Reactions Criticality Noted Date Comments Adhesive Tape 07/22/2017 Penicillins 09/07/1999 Difficulty breathing Rosiglitazone Maleate 12/25/2004 possible relation to DVT, PE's Tramadol Hcl Hives 10/20/2023 documented as of this encounter (statuses as of 03/21/2024) Medications Medication Sig Dispensed Refills Start Date [...] as of this encounter (statuses as of 03/21/2024) Active Problems Problem Noted Date Diagnosed Date [...] as of this encounter (statuses as of 03/21/2024) Resolved Problems Problem Noted Date Diagnosed Date [...] as of this encounter (statuses as of 03/21/2024) Immunizations Name Administration Dates Next Due Pneumococcal [...] as of this encounter Progress Notes * Kristyn Cross, [facility] - 03/21/2024 9:56 AM EDT Images from the original note were not included. Medication Therapy Disease Management - Anticoagulation Patient: Gloria Hardy Elvira | : 1940 Subjective Contacts Type Contact Phone/Fax 03/21/2024 09:59 AM EDT Phone (Outgoing) Gloria Felix (Self) [phone] (H) Spoke to Patient Patient-Reported Symptoms: Patient Findings Positives: Change in medications (bactrim until 03/26) Negatives: Signs/symptoms of thrombosis, Signs/symptoms of bleeding, Change in health, Change in alcohol use, Change in activity, Upcoming invasive procedure, Missed doses, Extra doses, Change in diet/appetite, Bruising Objective Current Warfarin Dose As of 03/21/2024 Warfarin maintenance plan: 7.5 mg (5 mg x 1.5) every Mon; 5 mg (5 mg x 1) all other days (decreasedwhile on Bactrim to 2.5 mg TuThSat, 5 mg) INR Result As of 03/21/2024 INR goal: 2.0-3.0 INR used for dosin.9 (03/20/2024) Assessment & Plan Warfarin Plan As of 03/21/2024 Full warfarin instructions: 03/21: 7.5 mg; 03/22: 2.5 mg; 03/24: 2.5 mg; 03/26: 5 mg; Otherwise 7.5 mg every Mon; 5 mg all other days Next INR check: 03/27/2024 Repeat PT/INR in 1 week(s) Weekly dose: decreased while on Bactrim Additional Dosing Information: Description 03/16/24 - bactrim DS BID x 10 days GML MTuTh Takes in AM Kristyn Cross RPh Clinical Pharmacist 03/21/2024, 9:58 AM documented in this encounter Plan of Treatment Upcoming Encounters Date Type Department Care Team (Late st Contact Info) Description 03/27/2024 7:00 AM EDT Laboratory Lab Mobile Phlebotomy [facility] [address] [facility] [place] [address] [facility] Mobile Home Draw [address] [facility] [place] [address] 03/27/2024 1:40 PM EDT Office Visit [facility] [address] [place] [phone] Christiano Felton MD [address] [place] [address] 04/04/2024 1:15 PM EDT Imaging Radiology [facility] 1st [facility] [place] 132 [facility] [place] [address] 08/10/2024 12:00 PM EDT Laboratory Laboratory Martha Wayne [place] [address] [place] [address] Deisy Wayne [address] [place] [address] [address] 08/10/2024 1:00 PM EDT Immunization/Injecti on Hematology/Oncology Treatment, [place] [address] [place] [address] Nurse, Med 4 [address] [place], [place] [address] 08/27/2024 3:00 PM EDT Imaging Radiology, [facility] 2520 [facility] [place] [address] 09/13/2024 9:20 AM EDT Laboratory Laboratory [facility] [place] [address] [place] [phone] [facility] 200 [facility] [place] [address] 09/20/2024 3:00 PM EST Office Visit Hematology/Oncology [facility] [place] [address] [place] [phone] Caroline Guerrier CRNP 400 [facility] [phone] Health Maintenance Due Date Last Done Comments Albumin/Creatinine Ratio 06/02/20232 022, 01/24/2019, 02/08/2018, Additional history exists Diabetic Foot Exam 06/02/2023 06/02/2022, 0 01/06/2021, 01/23/2019, Additional history exists COVID-19 Vaccine ( - 2022- season) 2023 HbA1c 12/30/2023 06/29/2023, 01/12, 02/03/2022, Additional history exists DTaP,Tdap,and Td Vaccines (2 - Td or Tdap) 01/22/2024 01/21/2014, 06/14/1988 DXA Scan 06/02/2024 06/02/2022 (Decl ined), 03/26/2019, 03/21/2017, Additional history exists GFR 08/10/2024 02/08/2024, 01/2024, 09/08/2023, Additional history exists Diabetic Eye Exam 11/16/2024 11/16/2023, , 05/04/2021, Additional history exists CKD HGB USE SMARTSET 43168 02/07/202502/074, 02/08/2024, 10/10/2023, Additional history exists CKD PHOS USE SMARTSET 81619 02/07/202501/13, 08/05/2023, 05/26/2023, Additional history exists Pneumococcal Vaccine: 65+ Years Completed 08/09/2017, 07/24/2008, 08/12/2003 VITAMIN D LEVEL ONCE IN A LIFETIME-USE SMARTSET# 84246 Completed 11/02/2017, 08/29/2013, 06/20/2012, Additional history exists [...] flutter documented in this encounter Care Teams Presser First Relationship Specialty Start Date End Date Christiano Felton MD [address] [place] [address] PCP - General 12/30/1997 documented as of this encounter"
--- OUTSIDE RECORDS SUMMARY | 2024-05-25 14:34 | External Medical Summary | Summary of Care ---
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 Procedures [facility] DENOSUMAB INJECTION [id number]- PROLIA Sancho Graham MD [address] [place] [address] Anc Hem/Onc Martha Wayne DEPT CLOSED - 09/27/23 [address] [place] [address] Referral ID Status Reason Start Date Expiration Date V isits Requested Visits Authorized [id number] Pending Review 01/30/2024 01/29/2025 99 99 Encounter Details Date Type Department Care Team (Late st Contact Info) Description 02/08/2024 2:00 PM EDT Immunization/I njection Hematology/Oncology Treatment, [place] [address] [place] [address] Nurse, Med 4 [address] [place] [address] Malignant neoplasm of upper-outer quadrant of left breast in female, estrogen receptor positive (HCC)*; Osteoporosis due to aromatase inhibitor Allergies Active Allergy Reactions Criticality Noted Date Comments Adhesive Tape 07/22/2017 Penicillins 09/07/1999 Difficulty breathing Rosiglitazone Maleate 12/25/2004 possible relation to DVT, PE's Tramadol Hcl Hives 10/20/2023 documented as of this encounter (statuses as of 03/15/2024) Medications Medication Sig Dispensed Refills Start Date [...] stage 1 chronic kidney disease, unspecified whether technician terminal and repeater insulin use (HCC) Use as directed. Use for insulin injections twice daily DxE11.29 200 Each 3 3 Active Ferrous Sulfate 325 (65 Fe) MG Oral Tablet (Feosol)Indication s:Iron deficiency anemia, unspecified iron deficiency anemia type Take one tab by mouth every day 90 Tablet 3 3 Active Cefdinir 300 MG Oral Capsule (Omnicef) Take 1 Capsule by mouth in the morning and 1 Capsule before bedtime. 0 3 Active Enoxaparin Sodium 120 MG/0.8ML Injection Solution Prefilled Syringe (Lovenox) Inject 120 mg under the skin in the morning and 120 mg before bedtime. 0 3 Active Furosemide 40 MG Oral Tablet [...] THE EVENING 90 mL 1 4 Active Lisinopril 10 MG Oral Tablet (Prinivil)Indicati ons:Type 2 diabetes mellitus with stage 3b chronic kidney disease, with long-term current use of insulin ([facility]),HTN, goal below 140/90 TAKE 1 TABLET BY MOUTH ONCE DAILY 90 Tablet 2 4 Active Pregabalin 150 MG Oral Capsule (Lyrica)Indication s:Type 2 diabetes mellitus with diabetic nephropathy, with long-term current use of insulin ([facility]) Take 1 Capsule by mouth in the morning and 1 Capsule before bedtime. 60 Capsule 11 4 Active Anastrozole 1 MG Oral Tablet (Arimidex)Indicati ons:Malignant neoplasm of upper-outer quadrant of left breast in female, estrogen receptor positive ([facility]) Take 1 Tablet by mouth in the morning. 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 30 Tablet 0 4 03/13/20 24 Discontinued documented as of this encounter (statuses as of 03/15/2024) Active Problems Problem Noted Date Diagnosed Date [...] as of this encounter (statuses as of 03/15/2024) Resolved Problems Problem Noted Date Diagnosed Date [...] as of this encounter (statuses as of 03/15/2024) Immunizations Name Administration Dates Next Due Pneumococcal [...] on file documented as of this encounter Nursing Notes * Selina Kelly LPN - 02/08/2024 1:46 PM EDT Pt arrived for Prolia injection. Drake/Phos WNL. Pt taking all supplements per order. Administered inRUA. Pt tolerated well. To return in 6 months. Discharged in stable condition. documented in this encounter Plan of Treatment Upcoming Encounters Date Type Department Care Team (Late st Contact Info) Description 03/20/2024 7:00 AM EDT Laboratory Lab Mobile Phlebotomy [facility] [address] [facility] [place] [address] [facility] Mobile Home Draw [address] [place] [address] 03/20/2024 2:30 PM EDT Office Visit Hematology/Oncology [facility] [place] 200 [facility] [place] [address] Caroline Guerrier CRNP 400 [facility] [place] [address] 03/21/2024 6:00 AM EDT Anticoagulation Pharmacy Call Center [place] 58[address]60 [facility] [place] [address] [facility] 58 60 [facility] [place] [address] 03/27/2024 1:40 PM EDT Office Visit [facility] [address] [place] [phone] Christiano Felton MD [address] [place], [place] [phone] 04/04/2024 1:15 PM EDT Imaging Radiology [facility] 1st [facility], [place] [address] [place] [address] 08/10/2024 12:00 PM EDT Laboratory Laboratory [facility] [address] [place] [phone] [place], Lab [address]enery [address] [facility] [place] [address] 08/10/2024 1:00 PM EDT Immunization/Injection Hematology/Oncology Treatment, [place] [address] [place] [phone] Nurse, Med 4 [address] [place] [address] Health Maintenance Due Date Last Done Comments [...] Additional history exists CKD HGB USE SMARTSET 85668 02/07/202502/07, 02/08/2024, 10/10/2023, Additional history exists CKD PHOS USE SMARTSET 65208 02/07/2025/05/2024, 08/05/2023, 05/26/2023, Additional history exists Pneumococcal Vaccine: 65+ Years Completed 08/09/2017, 07/24/2008, 08/12/2003 VITAMIN D LEVEL ONCE IN A LIFETIME-USE SMARTSET# [id number] Completed 11/02/2017, 08/29/2013, 06/20/2012, Additional history exists [...] as of this encounter Visit Diagnoses Diagnosis Malignant neoplasm of upper-outer quadrant of left breast in female, estrogen receptor positive (HCC)- Primary Osteoporosis due to aromatase inhibitor Other osteoporosis documented in this encounter Administered Medications Inactive Administered Medications - up to 3 most recent administrations Medication Order MAR Action Action Date Dose Rate Site Denosumab (Prolia) subcut inj 60 mg 60 mg, Subcutaneous, ONCE, On Tue02/08/24 at 1515, For 1 dose Given 02/08/2024 1:35 PM EDT 60 mg Arm Right Upper documented in this encounter Care Teams Insurance Special Agent Relationship Specialty Start Date End Date Christiano Felton MD [address] [place] [address] PCP - General 12/30/1997 documented as of this encounter
--- OUTSIDE RECORDS SUMMARY | 2024-05-25 14:34 | External Medical Summary | Summary of Care ---
Author Name Unknown Organization [facility] Address [address] [address] Phone [phone] Care Team Providers Care Defensive Fire Control Systems Operator Name Role Phone Christiano Felton MD Primary Care Provider [phone] Reason for Visit * Reason Onset Date Comments Advice 03/15/2024 Encounter Details Date Type Department Care Team (Late st Contact Info) Description 03/15/2024 Telephone Pharmacy, Caitlyn Bond [address] [place] [place] [address] [facility] [address] [place] [address] Advice Allergies Active Allergy Reactions Criticality Noted Date [...] every day 90 Tablet 3 09/20/2023 Active Cefdinir 300 MG Oral Capsule (Omnicef) Take 1 Capsule by mouth in the morning and 1 Capsule before bedtime. 0 01/01/2023 Active Enoxaparin Sodium 120 MG/0.8ML Injection Solution Prefilled Syringe (Lovenox) Inject 120 mg under the skin in the morning and 120 mg before bedtime. 0 10/26/2023 Active Furosemide 40 MG Oral Tablet (Lasix)Indications:H [...] before bedtime. 60 Capsule 11 01/19/2024 Active Anastrozole 1 MG Oral Tablet (Arimidex)Indication s:Malignant neoplasm of upper-outer quadrant of left breast in female, estrogen receptor positive (HCC) Take 1 Tablet by mouth in the morning. 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 1 11/25/2008 [...] encounter Miscellaneous Notes * Telephone Encounter - Sherry Estevez, [facility] - 03/15/2024 2:40 PM EDT Medication Therapy Disease Management - Anticoagulation Patient: Gloria Hardy Elvira | : 1940 Subjective Contacts Type Contact Phone/Fax 03/15/2024 01:39 PM EDT Phone (Incoming) Gloria Felix (Self) [phone] (H) 03/15/2024 02:35 PM EDT Phone (Outgoing) Gloria Felix (Self) [phone] (H) Patient-Reported Symptoms: Patient Findings Positives: Change in medications (Bactrim starting 5/3 x 10 days) Comments: While on bactrim, will attempt warfarin dosing as follows: 2.5 mg TuThSat, 5 mg all otherdays (26.7% dose decrease from baseline) Objective Current Warfarin Dose As of 03/15/2024 Warfarin maintenance plan: 7.5 mg (5 mg x 1.5) every Mon; 5 mg (5 mg x 1) all other days INR Result As of 03/15/2024 INR goal: 2.0-3.0 INR used for dosing: No new INR was available at the time of this encounter. Assessment & Plan Warfarin Plan As of 03/15/2024 Full warfarin instructions: While on Bactrim : 2.5 mg Tu, Th, Sat and 5 mg AOD Otherwise 7.5 mg every Mon; 5 mg all other days Next INR check: 03/20/2024 Repeat PT/INR in 5 day(s) - as previously scheduled Weekly dose: not changed - temporary dose dec while on Bactrim Additional Dosing Information: Description 03/16/24 - bactrim DS BID x 10 days GML MTuTh Takes in AM Sherry Estevez RP Clinical Pharmacist 03/15/2024, 2:40 PM * Telephone Encounter - Александр Harris CPhT - 03/15/2024 1:39 PM EDT Caller's name: Gloria [facility] call back number(OFFICE NUMBER FOR ): [phone] Reason for call: Pt starting on RX Bactrim for MRSA tomorrow, wante dMTM aware. Thank you, Александр Harris CPhT Production Department Supervisor [employer] 03/15/2024,1:40 PM documented in this encounter Plan of Treatment Upcoming Encounters Date Type Department Care Team (Late st Contact Info) Description 03/20/2024 7:00 AM EDT Laboratory Lab [facility]lebot[facility] [address] [place] [address] [facility] Draw [address] [place] [address] 03/20/2024 2:30 PM EDT Office Visit Hematology/Oncology [facility] [place] [address] [place] [phone] Caroline Guerrier CRNP [address] [place] [address] 03/21/2024 6:00 AM EDT Anticoagulation Pharmacy Call Center [phone] [place] [address] [facility], [facility] [address] [facility] [place] [address] 03/27/2024 1:40 PM EDT Office Visit [facility] [address] [place] [phone] Christiano Felton MD [address] [place] [address] 04/04/2024 1:15 PM EDT Imaging Radiology [facility] [address] [facility] [place] [address] [facility] [place] [address] 08/10/2024 12:00 PM EDT Laboratory Laboratory [employer] [address] [place] [phone] [facility] [address] [facility] [place] [address] 08/10/2024 1:00 PM EDT Immunization/Injection Hematology/Oncology Treatment, [place] [address] [place] [phone] Nurse, Med [address] [facility] [place] [address] Health Maintenance Due Date Last Done Comments Albumin/Creatinine Ratio 06/02/20232 022, 01/24/2019, 02/08/2018, Additional history exists Diabetic Foot Exam 06/02/2023 06/02/2022, 0 01/06/2021, 01/23/2019, Additional history exists COVID-19 Vaccine ( - season) 2023 HbA1c 12/30/2023 06/29/2023, 01/12, 02/03/2022, Additional history exists DTaP,Tdap,and Td Vaccines (2 - Td or Tdap) 01/22/2024 01/21/2014, 06/14/1988 DXA Scan 06/02/2024 06/02/2022 (Decl ined), 03/26/2019, 03/21/2017, Additional history exists GFR 08/10/2024 02/08/2024, 01/2024, 09/08/2023, Additional history exists Diabetic Eye Exam 11/16/2024 11/16/2023, , 05/04/2021, Additional history exists CKD HGB USE SMARTSET 87716 02/07/202502/07, 02/08/2024, 10/10/2023, Additional history exists CKD PHOS USE SMARTSET 96066 02/07/202501/13, 08/05/2023, 05/26/2023, Additional history exists Pneumococcal Vaccine: 65+ Years Completed 08/09/2017, 07/24/2008, 08/12/2003 VITAMIN D LEVEL ONCE IN A LIFETIME-USE SMARTSET# [id number] Completed 11/02/2017, 08/29/2013, 06/20/2012, Additional history exists [...] flutter documented in this encounter Care Teams Defensive Fire Control Systems Operator Relationship Specialty Start Date End Date Christiano Felton MD [address] [place] [facility] [place] [address] PCP - General 12/30/1997 documented as of this encounter"
--- OUTSIDE RECORDS SUMMARY | 2024-05-25 14:34 | External Medical Summary ---
Author Name Unknown Address Unknown Organization K0G:[facility] [address] [place] [address] Laboratory Report Ordering Provider Test Date Status MAXIMILIAN BRINK 03/20/2024 08:23:00 Final Warfarin Therapy
INR: 2 .0-3.0 conventional anticoagulation
INR: 2.5- 3.5 high intensity anticoagulation Observation Date Value Abnormality Reference (Units ) Status PT 03/20/2024 08:23:00 21.6 Above high normal 11 .6-15.2 (seconds) Final INR 03/20/2024 08:23:00 1.9 Above high normal 0. 8-1.2 Final Performing Location [facility] [address] [place] [address]
--- OUTSIDE RECORDS SUMMARY | 2024-05-25 14:34 | External Medical Summary | Summary of Care ---
Author Name Unknown Organization [facility] Address [address] [place] [address] Phone [phone] Care Team Providers Care Yeast Washer Name Role Phone Christiano Felton MD Primary Care Provider Reason for Visit * Reason Comments Follow Up 6 month follow up Encounter Details Date Type Department Care Team (Late st Contact Info) Description 03/20/2024 2:30 PM EDT Office Visit Hematology/Oncology [facility] [place] [address] [place] [address] Caroline Guerrier CRNP [address] [place] [address] Malignant neoplasm of upper-outer quadrant of left breast in female, estrogen receptor positive (HCC)*; Osteoporosis due to aromatase inhibitor; Iron deficiency anemia, unspecified iron deficiency anemia type; History of pulmonary embolism Allergies Active Allergy Reactions Criticality Noted Date Comments Adhesive Tape 07/22/2017 Penicillins 09/07/1999 Difficulty breathing Rosiglitazone Maleate 12/25/2004 possible relation to DVT, PE's Tramadol Hcl Hives 10/20/2023 documented as of this encounter (statuses as of 03/25/2024) Medications Medication Sig Dispensed Refills Start Date [...] stage 1 chronic kidney disease, 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 Use [...] 12/07/2023 Active Lisinopril 10 MG Oral Tablet (Prinivil)Indicatio ns:Type 2 diabetes mellitus with stage 3b chronic kidney disease, with long-term current use of insulin (HCC),HTN, goal below 140/90 TAKE 1 TABLET BY MOUTH ONCE DAILY 90 Tablet 2 12/11/2023 Active Pregabalin 150 MG Oral Capsule (Lyrica)Indications :Type 2 diabetes mellitus with diabetic nephropathy, with long-term current use of insulin (HCC) Take 1 Capsule by mouth in the morning and 1 Capsule before bedtime. 60 Capsule 11 01/19/2024 Active Warfarin Sodium 5 MG Oral Tablet (Jantoven)Indicatio ns:History of pulmonary embolism,Anticoagul ation management encounter,FCI current use of anticoagulant therapy TAKE ONE TO ONE and 1/2 TABLETs BY MOUTH ONCE DAILY INSTRUCTED BY [facility] 135 Tablet 1 02/27/2024 Active traMADol HCl 50 MG Oral Tablet (Ultram)Indications :Type 2 diabetes mellitus with diabetic nephropathy, with long-term current use of insulin ([facility]) Take 1 Tablet by mouth daily as needed for Pain, Moderate. 30 Tablet 0 03/13/2024 Active Cefdinir 300 MG Oral Capsule (Omnicef) Take 1 Capsule by mouth in the morning and 1 Capsule before bedtime. 0 01/01/2023 03/20/20 24 Discontinu ed(Medicat ion List Clean Up) Enoxaparin Sodium 120 MG/0.8ML Injection Solution Prefilled Syringe (Lovenox) Inject 120 mg under the skin in the morning and 120 mg before bedtime. 0 10/26/2023 03/20/20 24 Discontinu ed(Medicat ion List Clean Up) Anastrozole 1 MG Oral Tablet (Arimidex)Indicatio ns:Malignant neoplasm of upper-outer quadrant of left breast in female, estrogen receptor positive (HCC) Take 1 Tablet by mouth in the morning. 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 GENERAL OSTEOARTHROSIS 09/22/1999 Lymphedema documented as of this encounter (statuses as of 03/25/2024) Resolved Problems Problem Noted Date Diagnosed Date [...] as of this encounter (statuses as of 03/25/2024) Immunizations Name Administration Dates Next Due Pneumococcal [...] Sign Reading Time Taken Comments Blood Pressure 87/52 03/20/2024 2:30 PM EDT Pulse 62 03/20/2024 2:29 PM EDT Temperature 36.9 C (98.5 F) 03/20/2024 2:29 PM ED T Respiratory Rate - - Oxygen Saturation 92% 03/20/2024 2:29 PM EDT Inhaled Oxygen Concentration - - Weight 117.9 kg (260 lb) 03/20/2024 2:29 PM EDT Height - - Body Mass Index 44.63 06/29/2023 12:19 PM EDT documented in this encounter Progress Notes * Fareed Caroline BaronOSCAR zaman - 03/20/2024 2:30 PM EDT Hematology/Oncology Outpatient Clinic note [facility] [address] [place] [address] Name: Gloria Felix Date: 03/20/2024 CHIEF COMPLAINT: Gloria Felix is a 83 year old female here today for f/u visit today. Patient of Dr. Sancho Graham. From Patient chart confirmed with patient. HEMATOLOGY/ONCOLOGY DIAGNOSIS: Left breast cancer involving the upper outer quadrant Osteoporosis History of PE and LLE DVT Cancer Staging Malignant neoplasm of upper-outer quadrant of left female breast (HCC) Staging form: Breast, AJCC 7th Edition - Clinical stage from 03/14/2017: Stage IIA (T2(2), N0, M0) - Signed by Sancho Graham MD on 03/14/2017 DATE OF DIAGNOSIS: 2016 TREATMENT HISTORY: She underwent left mastectomy and the sentinel lymph anayeli biopsy followed by lymph node dissectionon 06/20/[address] Balderrama at [facility] CURRENT TREATMENT: Started on anastrozole around 03/22/2017. Prolia 60 mg subq every six months Coumadin with dosing per [facility] Ferrous sulfate one tablet daily Sublingual vitamin b12 1,000 mcg daily Diagnostic workup: Earlier she did not have any regular mammogram, she says that she does not any family history of any kind of cancer diagnosis. Recently she noticed to have small lump in the left breast without in the local symptoms. - Bilateral breast mammogram done on 02/14/2017 showed 3.9 x 2.3 x 3.2 cm 12 o 'clock mass, another small 8 x 4 mm spiculated mass noted in the left breast. PET breast showed no new suspicious findingsother than simple cyst. -Ultrasound of the left breast showed dumbbell shaped mass involving the left breast at 12 o 'clockmeasuring 2.1 x 2 x 2.1 cm and adjacent 2.1 x 2.1 x 2 cm, another small 8 x 5 x 4 mm hypoechoic mass noted in the left breast. -Biopsy from the left breast 12 o 'clock mass--> infiltrating carcinoma, no special type, grade 2, ER strongly positive in 100% of the malignamt cells, AZ weakly positive in 20% of malignant cells, Her2/Erendira equivocal, negative by FISH. Biopsy from the left breast 10 o 'clock lesion--> infiltrative carcinoma, tubular type, grade 1,ER and AZ receptor strongly positive in 100% when cells, Her2/Erendira--> negative IHC. She was seen by Dr. Balderrama recently, because of the Wolf 's shaped mass and other lesion involving the left breast, suggested left mastectomy in her case. She says that she would like to hold for surgery at this time, says that her has to go for cataract surgery that may happen in the next 2 months also and then she would have surgical option. She says that she has quite a few comorbid conditions, has chronic bilateral leg edema for the lastseveral years, has underlying diabetes mellitus, neuropathy involving the both lower extremities. Ambulates with the help of the cane. She is also on oral Coumadin for left lower extremity DVT and pulmonary embolism for the last several years. No new bleeding complications from any sites. Bone density done on 03/21/2017 showed T-score at lumbar spine-1.6 and at femoral neck-3.2. -CT scan of the chest, abdomen pelvis done on 03/21/2017 showed about 5.4 x 2.1 cm hypodense structure along the left pelvic sidewall, no other signs of metastatic noted anywhere else. Pelvic sonogram done on 04/01/2017 showed nonspecific cystic appearing lesion involving the left pelvis which demonstrates internal vascularity. Started on anastrozole around 03/22/2017. She underwent left mastectomy and the sentinel lymph anayeli biopsy followed by lymph node dissectionon 06/20/[address] Balderrama at [facility], final pathology showed 2 well-differentiated invasive ductal carcinoma measuring 3 cm and 1 cm, negative margin no lymphovascular invasion noted, 1/10 lymph node positive for metastatic disease measuring 4 mm, no external extension noted. T2 N1a (sn) M0 She is on oral Coumadin for left lower extremity DVT and pulmonary embolism for the last several years. 03/26/2019 DEXA Scan -The fracture risk is HIGH (based on T-score at or below -2.5) Earlier bone density study showed evidence of osteoporosis, she was seen by hand chain maker, this started her on oral bisphosphonate therapy orally but she says that she could not tolerate that, she had increasing reflux symptoms. She was eval'd by Rheumatology. On 08/01/2020 she was started on Prolia. HISTORY OF PRESENT ILLNESS: Gloria Felix is a 83 year old female with a history as outlined above. Currently here for f/uvisit today. Patient is ready to come off of anastrozole today. Continues on Prolia every six months. Confirms taking calcium/vitamin d supplement daily. Continues on coumadin. Following with [facility]. Denies any signs of abnormal bleeding. No further episodes of VTE. Taking ferrous sulfate one tablet daily and vitamin b12 1,000 mcg daily. Tolerating well. Has no concerns today. Wounds to sacral area are healing. Going to the wound care center once a week and then home care coming twice weekly to assist with dressing changes. Is currently on Bactrim for MRSA infection in the wound. Sees PCP next week. Past Medical History: Diagnosis Date Bilateral - PULMONARY EMBOLUS 08/17/2004 Breast cancer (HCC) 04/14/2017 Left mastectomy - 06/20/2017 DM type 2, goal A1C below 8.0 10/22/2013 HTN, goal below 140/90 Obesity, BMI not known 09/22/1999 Osteoarthrosis Other lymphedema legs Polyneuropathy in diabetes(357.2) Past Surgical History: Procedure Laterality Date BREAST BIOPSY Left 2017 Malignant ERCP 11/19/2020 Choledocholithiasis, stent placed, repeat 6 wks / [facility] ERCP 01/12/2021 choledocholithiasis, stents removed / [facility] LAP;W/HYSTERECTOMY 2003 Hysterectomy Complete/ ovaries removed LAPAROSCOPY; CHOLECYSTECTOMY 11/21/2020 Dr. Macdonald MASTECTOMY, SIMPLE, COMPLETE Left 2017 MISCELLANEOUS ORDER bilateral arthroscopic surgery on knees MISCELLANEOUS ORDER ([facility] ONLY) 1984, 1985 low back surgery/ ruptured disc (Rajoub) MISCELLANEOUS ORDER ([facility] ONLY) Left 06/20/2017 06/20/2017 LEFT MASTECTOMY WITH LEFT AXILLARY SENTINEL LYMPH NODE BIOPSY AND STARR AXILLARY NODE DISSECTION [facility] DR BALDERRAMA 06/20/17 REMOVAL OF TONSILS, UNDER AGE 14 REPAIR RUPTURED ROTATOR CUFF, CHRON 2000 right shoulder/ Sebastionelli SENTINEL LYMPH NODE BIOPSY PERFORMED Left 2017 Social History Socioeconomic History Marital status: Spouse name: Not on file Number of children: 0 Years of education: Not on file Highest education level: Not on file Occupational History Not on file Tobacco Use Smoking status: Never Passive exposure: Past Smokeless tobacco: Never Substance and Sexual Activity Alcohol use: No Drug use: No Sexual activity: Not Currently Other Topics Concern Not on file Social History Narrative Retired as of 09/14. Worked for [employer]. Social Determinants of Health Financial Resource Strain: Not on file Food Insecurity: No Food Insecurity (01/28/2020) Hunger Vital Sign Worried About Running Out of Food in the Last Year: Never true Ran Out of Food in the Last Year: Never true Transportation Needs: Not on file Physical Activity: Not on file Stress: Not on file Social Connections: Not on file Intimate Partner Violence: Not on file Housing Stability: Not on file Review of patient's allergies indicates: Allergen Reactions Adhesive Tape Penicillins Difficulty breathing Rosiglitazone Maleate possible relation to DVT, PE's Tramadol Hcl Hives Current Outpatient Medications Medication Sig Dispense Refill VOLTAREN 1 % TD GEL Apply to affected area(knees) 4 grams up to 4 times daily 100 g 5 Vitamin B-12 1000 MCG Sublingual Tablet Sublingual Take 1 Tab by mouth daily. 90 Tab 1 Vitamin D3 50 MCG (1999 UT) Oral Capsule Take 1 Cap by mouth every other day. 30 Cap 1 Pantoprazole Sodium 40 MG Oral Tablet Delayed [...] by mouth every day 90 Tablet 3 Cefdinir 300 MG Oral Capsule (Omnicef) Take 1 Capsule by mouth in the morning and 1 Capsule before bedtime. Furosemide 40 MG Oral Tablet (Lasix) TAKE [...] needed for Pain, Moderate. 30 Tablet 0 Accu-Chek Lennie Plus In Vitro Strip (Glucose Blood) USE STRIP TO CHECK GLUCOSE 2 TO 3 TIMES DAILY FOR UNCONTROLLED DIABETES. 300 Strip 3 Enoxaparin Sodium 120 MG/0.8ML Injection Solution Prefilled Syringe (Lovenox) Inject 120 mg under the skin in the morning and 120 mg before bedtime. No current facility-administered medications for this visit. REVIEW OF SYSTEMS: See HPI - otherwise negative OBJECTIVE: Filed Vitals: 03/20/24 1429 03/20/24 1430 BP: 96/63 87/52 Pulse: 62 Temp: 36.9 C (98.5 F) TempSrc: Tympanic SpO2: 92% Weight: 117.9 kg (260 lb) Wt Readings from Last 5 Encounters: 03/20/24 117.9 kg (260 lb) 10/28/23 113.9 kg (251 lb) 09/20/23 119.4 kg (263 lb 4.8 oz) 09/08/23 118.8 kg (262 lb) 06/29/23 120.1 kg (264 lb 12.8 oz) PHYSICAL EXAM: ECOG: Performance Status 2 = 60-70% Bedtime, < 50% daytime General Appearance: No acute distress Lymph Nodes: Normal - No palpable lymph nodes in the neck, supraclavicular or axillary areas Lungs/Thorax: Normal - Clear to auscultation Heart: Normal - Regular rate and rhythm, normal S1, S2, no appreciable murmurs Extremities: +BLE lymphedema Neurologic: alert and oriented x 4, in wheelchair LABS: Component Latest Ref [facility] 02/08/2024 WBC 4.00 - 10.80 K/uL 9.35 RBC 3.85 - 5.15 M/uL 3.70 HGB 12.0 - 15.3 g/dL 10.3 (L) HCT 36.0 - 45.2 % 33.8 (L) MCV 81.5 - 97.5 fL 91.4 MCH 27.0 - 34.0 pg 27.8 MCHC 32.0 - 36.0 g/dL 30.5 RDW 11.5 - 15.5 % 15.1 PLT 140 - 400 K/uL 286 MPV 6.6 - 11.1 fL 10.8 Component Latest Ref [facility] 02/08/2024 Ferritin 13 - 150 ng/mL 47 Component Latest Ref [facility] 02/08/2024 Iron 33 - 151 ug/dL 55 Iron Binding Capacity 250 - 425 ug/dL 294 Transferrin Saturation Percent 15 - 55 % 19 Component Latest Ref [facility] 02/08/2024 BUN 6 - 20 mg/dL 29 (H) Creatinine 0.5 - 1.0 mg/dL 1.2 (H) Estimated Glomerular Filtration Rate >=60 mL/min 47 (L) Sodium 135 - 146 mmol/L 134 (L) Potassium 3.5 - 5.1 mmol/L 4.9 Chloride 98 - 107 mmol/L 95 (L) CO2 22 - 32 mmol/L 27 Anion Gap 7 - 15 mmol/L 12 Glucose 70 - 120 mg/dL 164 (H) Albumin 3.8 - 5.0 g/dL 3.5 (L) AST 10 - 35 U/L 16 Alkaline Phosphatase 35 - 130 U/L 65 Bilirubin, Total <=1.2 mg/dL 0.2 Calcium 8.4 - 10.2 mg/dL 9.2 Protein 6.0 - 8.3 g/dL 7.1 ALT 10 - 35 U/L 7 (L) Component Latest Ref Rng 02/08/2024 Phosphorus 2.5 - 4.8 mg/dL 3.9 IMAGING: Right Mammogram 02/23/23: Findings Right The right breast is heterogeneously dense, which may obscure small masses. Stable circumscribed mass in the upper-outer quadrant. No new dominant mass or clustered microcalcifications suspicious for malignancy are identified. Impression No mammographic evidence of malignancy in the right breast. Prior left mastectomy for carcinoma. BI-RADS Category: 2 - Benign. Recommendation Screening mammogram in 1 year is recommended for both breasts. IMPRESSION/PLAN: Left breast cancer involving the upper outer quadrant Osteoporosis History of PE and LLE DVT Iron deficiency Anemia Has completed seven years of adjuvant hormonal therapy with anastrozole. Ok to discontinue today. Next Prolia injection due in July. -patient overdue for DEXA scan. Will reorder today. Patient agrees to schedule. Continue calcium/vitamin d supplement Mammogram 02/23/23 reviewed: BIRADS 2 -repeat annually - next scheduled 03/12/24 Continue coumadin with dosing per [facility] Lab results reviewed. Slight improvement in anemia with Hgb of 10.3 CMP unremarkable Mild improvement in iron studies with ferritin 47 and TSAT 19% Continue taking ferrous sulfate one tablet daily and vitamin b12 1,000 mcg daily. RTC in six months with provider with cbc/diff, cmp, iron screen, ferritin, vitamin b12 and folic acid OSCAR Devries documented in this encounter Nursing Notes * Kristyn Handley MED ASSIST - 03/20/2024 2:36 PM EDT Spoke to Caorline face to face in regards to blood pressure sitting of 96/63 on right forearm then large cuff on upper arm of 87/52. Patient reports no lighteadedness or dizziness. * Kristyn Handley MED ASSIST - 03/20/2024 2:32 PM EDT Patient identifed by name and birthdate Do you have any concerns about pain management for today's visit? No Living Will or Advance Directive for Health Care as noted on the problem list. [facility] is a way you can talk to your provider on line through e-mail. Would you like to sign up? I can activate it for you? NO Filed Vitals: 03/20/24 1429 03/20/24 1430 BP: 96/63 87/52 Pulse: 62 Temp: 36.9 C (98.5 F) TempSrc: Tympanic SpO2: 92% Weight: 117.9 kg (260 lb) Patient was instructed to not get up on the exam table/exam chair until directed and assisted by their provider; patient is to remain seated in the chair/ wheelchair/ exam table/ exam chair for fall prevention and safety reasons. Patient is aware to have assistance to step down off exam table/exam chair with personnel. Patient voiced full comprehension of instructions. NOTE: Patient states that she feels good no lightheadedness or dizziness. documented in this encounter Plan of Treatment Upcoming Encounters Date Type Department Care Team (Late st Contact Info) Description 03/27/2024 7:00 AM EDT Laboratory Lab Mobile Phlebotomy [facility] [address] [facility] [place] [address] [facility], Gml Mobile Home Draw [address] [facility] [place] [address] 03/27/2024 1:40 PM EDT Office Visit [facility] [address] [facility] [phone] Christiano Felton MD [address] [place] [facility] [place] [address] 03/28/2024 6:00 AM EDT Anticoagulation Pharmacy Call Center [phone] [place] [address] [facility] [address] [facility] [place] [address] 04/04/2024 1:15 PM EDT Imaging Radiology [address] [facility] [place] [address] 08/10/2024 12:00 PM EDT Laboratory Laboratory [facility] [address] [place] [phone] [facility] [address] [facility] [place] [address] 08/10/2024 1:00 PM EDT Immunization/Injection Hematology/Oncology Treatment, [place] [address] [place] [phone] Nurse, Med [address] [facility] [place] [address] 08/27/2024 3:00 PM EDT Imaging Radiology, [facility] [address] [facility] [place] [address] 09/13/2024 9:20 AM EDT Laboratory Laboratory [facility] [place] [address] [place] [phone] Deisy Wayne [facility] [address] [place] [address] [address] 09/20/2024 3:00 PM EST Office Visit Hematology/Oncology [facility] [place] [address] [place] [phone] Caroline Guerrier CRNP [address] [facility] [place] [address] Scheduled Orders Name Type Priority Associated Diagnoses Order Schedule DEXA SCAN/BONE MINERAL AXIAL Medical Imaging Routine Osteoporosis due to aromatase inhibitor Ordered: 03/20/2024 CBC WITH WBC DIFFERENTIAL Lab STAT 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, estrogen receptor positive (HCC) Iron deficiency anemia, unspecified iron deficiency anemia type History of pulmonary embolism Every 6 Months for 2 Occurrences starting 03/25/2024 until 04/19/2025 COMPREHENSIVE METABOLIC PANEL Lab STAT 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, estrogen receptor positive (HCC) Iron deficiency anemia, unspecified iron deficiency anemia type History of pulmonary embolism Every 6 Months for 2 Occurrences starting 03/25/2024 until 04/19/2025 IRON SCREEN, INCLUDING TIBC Lab STAT 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, estrogen receptor positive (HCC) Iron deficiency anemia, unspecified iron deficiency anemia type History of pulmonary embolism Every 6 Months for 2 Occurrences starting 03/25/2024 until 04/19/2025 FERRITIN Lab STAT 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, estrogen receptor positive (HCC) Iron deficiency anemia, unspecified iron deficiency anemia type History of pulmonary embolism Every 6 Months for 2 Occurrences starting 03/25/2024 until 04/19/2025 VITAMIN B12 Lab STAT 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, estrogen receptor positive (HCC) Iron deficiency anemia, unspecified iron deficiency anemia type History of pulmonary embolism Every 6 Months for 2 Occurrences starting 03/25/2024 until 04/19/2025 FOLIC ACID Lab STAT 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, estrogen receptor positive (HCC) Iron deficiency anemia, unspecified iron deficiency anemia type History of pulmonary embolism Every 6 Months for 2 Occurrences starting 03/25/2024 until 04/19/2025 Health Maintenance Due Date Last Done Comments [...] Additional history exists CKD HGB USE SMARTSET 49730 02/07/202502/07, 02/08/2024, 10/10/2023, Additional history exists CKD PHOS USE SMARTSET 79873 02/07/202501/13, 08/05/2023, 05/26/2023, Additional history exists Pneumococcal Vaccine: 65+ Years Completed 08/09/2017, 07/24/2008, 08/12/2003 VITAMIN D LEVEL ONCE IN A LIFETIME-USE SMARTSET# [id number] Completed 11/02/2017, 08/29/2013, 06/20/2012, Additional history exists [...] Osteoporosis due to aromatase inhibitor Other osteoporosis Iron deficiency anemia, unspecified iron deficiency anemia type History of pulmonary embolism Personal history of pulmonary embolism documented in this encounter Care Teams Yeast Washer Relationship Specialty Start Date End Date Christiano Felton MD [address] [place] [address] PCP - General 12/30/1997 documented as of this encounter
[2024-05-25] MEDS: WARFARIN SOD 5 MG TAB PO SCH (16:39)
[2024-05-25] MEDS: ROSUVASTATIN CALCIUM 20 MG TAB PO SCH (22:05)
[2024-05-26 06:26] LABS: Basophils # (auto) 0.08 K/uL (0.00-0.20); Basophils % (auto) 0.9 %; Eosinophils # (auto) 0.26 K/uL (0.00-0.50); Eosinophils % (auto) 2.9 %; Hematocrit (blood only) 34.1 % (37.0-47.0); Hemoglobin 10.2 g/dl (12.0-16.0); Immature Granulocytes # (auto) 0.29 K/uL (0.01-0.20); Immature Granulocytes % (auto) 3.2 %; Lymphocytes # (auto) 1.49 K/uL (1.20-3.40); Lymphocytes % (auto) 16.5 %; Mean Corpuscular Hemoglobin 26.5 pg (25.0-34.0); Mean Corpuscular Hgb Conc 29.9 g/dL (32.0-36.0); Mean Corpuscular Volume 88.6 fL (80.0-100.0); Mean Platelet Volume 10.9 fL (9.4-12.4); Monocytes # (auto) 0.85 K/uL (0.11-0.59); Monocytes % (auto) 9.4 %; Neutrophils # (auto) 6.07 K/uL (1.40-6.50); Neutrophils % (auto) 67.1 %; Platelet Count 270 K/uL (130-400); RDW Coefficient of Variation 14.2 % (11.5-14.5); RDW Standard Deviation 46.2 fL (36.4-46.3); Red Blood Count 3.85 M/uL (4.20-5.40); White Blood Count 9.04 K/ul (4.8-10.8)
[2024-05-26 06:35] LABS: BUN Creatinine Ratio 15.2 (10-20); Calcium 7.8 mg/dl (8.6-10.3); Creatinine Clr Calc Pharmacy 55.5 ml/min; Est GFR (African American) 61.9 ml/min; Est GFR (Non-African American) 53.4 ml/min; Magnesium 2.3 mg/dl (1.7-2.4); Phosphorus 3.2 mg/dl (2.5-4.9); Potassium 4.4 mmol/L (3.5-5.1)
[2024-05-26 06:41] LABS: INR 1.8 (0.9-1.1)
[2024-05-26 06:59] LABS: Folate (Folic Acid),Ser orPlas 10.02 ng/ml (>5.38)
[2024-05-26 07:21] LABS: Ferritin 13.2 ng/ml (8-388)
--- NOTE | 2024-05-26 09:28 | Cardiology Progress Note ---
Date of Service May 26, 2024 Assessment & Plan (1) Pre-syncope: (2) Atrial tachycardia, paroxysmal: (3) Chronic diastolic CHF (congestive heart failure): (4) Aortic stenosis: (5) CAD (coronary artery disease): (6) Bifascicular block: Plan Medically complex 83 year old female presents with presyncopal symptoms associated with short runs of paroxysmal atrial tach on telemetry. Today on exam she is feeling better, heart rates are better controlled on telemetry. Mild hypervolemia, although difficult to assess due to body habitus and baseline lymphedema. - responding well to IV diuresis, continue Lasix IV 40 mg BID - continue metoprolol, spironolactone, warfarin (INR goal 2-3), rosuvastatin - Daily standing weights. Strict I's/O. 2 g sodium diet. - consider outpatient valve clinic referral for moderate to severe aortic stenosis on inpatient echo Case discussed with supervising physician, further recommendations per Dr. Gill. I spent a total of 30 minutes on the date of service in preparation, delivery, and documentation of the care provided to this patient excluding any time spent in the performance of separately billed services. This visit was a split-shared visit with the substantial portion of the decision making performed by the supervising wood flour miller/billing provider. Admission and Anticipated Discharge Date Admission Date: May 24, 2024 Supervising Physician Co-Signing Physician Notes I have personally performed a history and physical examination on the patient. I have reviewed the advance practitioner's documentation, and I agree with, and take responsibility for the plan of care. I spent a total of 35 minutes on the date of service in preparation, delivery, and documentation of the care provided to this patient, excluding any time spent in the performance of separately billed services. Subjective On evaluation today she is feeling well. Denies chest pain, palpitations, shortness of breath. Has been out of bed with no lightheadedness, dizziness. States she has edema at baseline due to lymphedema. Currently on 2L nasal cannul a which is her baseline at home. Telemetry with controlled heart rates, 50-70 bpm, sinus w/PACs. Review of Systems Review of Systems: CONSTITUTIONAL: No change in weight, No weakness, No fatigue and No fevers, No sweats or chills. PULMONARY: No cough, sputum, or hemoptysis, No wheezing, No shortness of breath and No recent change in breathing. CARDIOVASCULAR: No chest pain, No dyspnea on exertion, + edema, No palpitations and No syncope. GASTROINTESTINAL: No abdominal pain, No change in bowel habits, No significant heartburn, No nausea, No vomiting, No diarrhea, No constipation, No blood in stools or black tarry stools. No dysphagia. HEMATOLOGIC: No abnormal bleeding and No bruising. NEUROLOGICAL: Normal balance, No headaches and No weakness. Physical Exam Physical Exam: General: No acute distress. A+Ox3. Obese. HEENT: Normocephalic. Atraumatic. PERRL. EOMI. Conjunctiva and sclera clear. NECK: No carotid bruits. No JVD. Carotid upstrokes are brisk. Heart: RRR. S1 and S2 noted. +3/6 systolic murmur. No rubs or gallops. PMI non displaced. Lungs: Clear to auscultation. No wheezes. No rhonchi. No rales. Abdomen: Normal bowel sounds. Soft. Nontender. No masses or organomegaly. No abdominal bruits. Extremities: 1-2+ bilateral LE edema with erythema. No clubbing or cyanosis. Pulses: radial=2/4, posterior tibial=2/4, dorsalis pedis = 2/4. NEURO: No focal deficits. PSYCH: Appropriate affect and insight. Results & Data Vital Signs (Past 12 Hours) Vital Signs Temp Pulse Pulse Resp BP Pulse Ox O2 Del Method 05/26/24 09:17 Nasal Cannula 05/26/24 07:26 68 05/26/24 07:14 37.0 C 71 20 119/46 L 97 Nasal Cannula 05/26/24 03:52 36.5 C 68 19 128/67 98 Nasal Cannula 05/25/24 23:29 36.7 C 74 19 126/67 98 Nasal Cannula 05/25/24 22:00 68 05/25/24 22:00 Nasal Cannula O2 Flow Rate 05/26/24 09:17 2 05/26/24 07:26 05/26/24 07:14 2 05/26/24 03:52 2 05/25/24 23:29 2 05/25/24 22:00 05/25/24 22:00 2 Laboratory Results Coagulation 05/26/24 Range/Units 05:52 PT 19.0 H (9.0-12.0) Seconds CBC 05/26/24 Range/Units 05:52 WBC 9.04 (4.8-10.8) K/ul RBC 3.85 L (4.20-5.40) M/uL Hgb 10.2 L (12.0-16.0) g/dl Hct 34.1 L (37.0-47.0) % Plt Count 270 (130-400) K/uL Neut # (Auto) 6.07 (1.40-6.50) K/uL Lymph # (Auto) 1.49 (1.20-3.40) K/uL [place] # (Auto) 0.85 H (0.11-0.59) K/uL Eos # (Auto) 0.26 (0.00-0.50) K/uL Baso # (Auto) 0.08 (0.00-0.20) K/uL Comprehensive Metabolic Panel 05/26/24 Range/Units 05:52 Sodium 138 (136-145) mmol/L Potassium 4.4 D (3.5-5.1) mmol/L Chloride 102 (98-107) mmol/L Carbon Dioxide 32 (21-32) mmol/L BUN 15 (6-23) mg/dl Creatinine 0.99 (0.6-1.2) mg/dl Glucose 163 H (70-99(Fasting)) mg/dl Calcium 7.8 L (8.6-10.3) mg/dl Intake and Output 05/25/24 05/26/24 05/26/24 22:59 06:59 14:59 Intake Total 50 / 50 Output Total 801 / 2751 950 / 2751 Balance - / -1980 - 50 / 50 Intake: IV 50 / 50 cefTRIAXone SODIUM 2,000 mg In 50 / 50 50 ml @ 100 mls/hr IV Q24H [facility] Rx#:[id number] Output: Urine Amount (Catheter) 800 / 2750 950 / 2750 Villarreal/Indwelling 800 / 2750 950 / 2750 # Bowel Movements Other: Weight 115.4 kg Weight Measurement Method Standing Scale Patient Weight 05/27/24 06:59 Weight 115.4 kg Diagnostic Findings Echocardiogram revealing LVEF 50-55%, no WMA. Moderate to severe with peak AV velocities recorded post PVC, average velocity 3.6m/sec. EKG today with sinus rhythm with PACs, 73 bpm, RBBB, left anterior fascicular block, bifascicular block (4) Aortic stenosis Cardiac valve disease etiology: nonrheumatic Qualified Code(s): I35.0 - Nonrheumatic aortic (valve) stenosis (5) CAD (coronary artery disease) Associated angina: without angina Coronary Disease-Associated Artery/Lesion type: [place] artery [place] vs. transplanted heart: [place] heart Qualified Code(s): I25.10 - Atherosclerotic heart disease of [place] coronary artery without angina pectoris
--- NOTE | 2024-05-26 11:55 | Electrocardiogram Report ---
Test Reason : Blood Pressure : / mmHG Vent. Rate : 073 BPM Atrial Rate : 089 BPM P-R Int : 182 ms QRS Dur : 136 ms QT Int : 460 ms P-R-T Axes : 016 -61 041 degrees QTc Int : 506 ms Sinus rhythm with Premature atrial complexes Right bundle branch block Left anterior fascicular block Bifascicular block Voltage criteria for left ventricular hypertrophy Abnormal ECG When compared with ECG of 25-MAY-2024 04:54, Premature atrial complexes are now Present Nonspecific T wave abnormality, improved in Anterolateral leads Confirmed by Vikram Aguirre ([id number]) on 05/26/2024 11:55:38 AM Referred By: REFERRED SELF Confirmed By:Vikram Aguirre
--- NOTE | 2024-05-26 14:41 | Hospitalist Progress Note ---
Date of Service May 26, 2024 Assessment & Plan (1) Acute on chronic diastolic CHF (congestive heart failure): (2) Hypokalemia: (3) Hypomagnesemia: (4) Hypophosphatemia: (5) Paroxysmal atrial flutter: (6) Acquired lymphedema: (7) Elevated troponin: (8) Moderate aortic stenosis: (9) LUZ MARIA (obstructive sleep apnea): (10) Morbid obesity with BMI of 40.0-44.9, adult: (11) Chronic hypoxic respiratory failure: Plan Pt is an 83-year-old female with past med history significant for type 2 diabetes, diabetic polyneuropathy, obstructive sleep apnea noncompliant with CPAP on 2 L oxygen, paroxysmal SVT, nonsustained ventricular tachycardia, A- flutter, diastolic CHF, hypertension, nonrheumatic aortic valve stenosis, obesity, GERD, CKD stage III, osteoarthritis, history of breast cancer, history of chronic lymphedema, history of PE who presents with increased lower extremity swelling. Acute on chronic diastolic CHF B/L Acquired lymphedema Moderate aortic valve stenosis Possible Cellulitis R>L Increased lower extremity swelling BNP 177 Chest XRAY noting stable cardiomegaly echo from 09/2023 moderate Aortic stenosis, EF 55-59%, small apical WMA possible old [place], compared to prior echo WMA was new received 40mg IV lasix in ED and thus far 1200ml output continue lasix IV 40mg BID, add KCL supplementation daily weights, strict I and O Repeat echo with noted modrate to severe aortic stenosis Wound care consult On rocephin for possible cellulitis(R>L) and UTI (see below) consult cardiology due to above and concern for tachyarrhythmia, appreciate recs -added spironolactone -metoprolol 25mg BID Pre Syncope Tachy-arrhythmia pt reports, "spells," where she gets nervousness in her chest and feels like she could pass out, she reports a few seconds of passing out in ED, no irwin chest pain in ED when pt was exerting in bathroom she became symptomatic of these, "spells" and was her HR was in the 200s, concern for flutter vs Monomorphic Vtach @ 1813 and 1930 monitor on tele and replete lytes Cardiology consulted, appreciate recs History of a flutter History of paroxysmal SVT PAF Continue metoprolol and Coumadin as above Elevated trop Trop elevated and 19.7, peaked and downtrended to 34.5 Likely in setting of above Doubt ACS UTI UA suggestive of infection urine Cx pending Started on Rocephin (tolerated class in the past) Hypokalemia Replete as needed keep above 4 secondary to history of arrhythmias Hypomagnesemia Replete as needed keep above 2.0 secondary to history of arrhythmias Hypophosphatemia currently oversupplemented, will hold further supplementation Replete as needed Chronic Anemia hgb 10, appears baseline Anemia panel for AM- iron, b12 and folate Supplement as needed Chronic hypoxic resp failure On 2L chronically continue to monitor History of PE Continue warfarin T2DM A1c 6.7 Mar 27 2024 Lantus/novolog per protocol, hold metformin Obstructive sleep apnea Oxygen at bedtime, patient noncompliant with CPAP Hypertension BP elevated in ED; however small cuff noted to be on pt, large cuff placed and SBP in 140s received IV labetolol in ED continue metoprolol, previously on lisinopril but this was discontinued History of breast cancer S/p left mastectomy previous on anastrazole Sacral wound/Bilateral lower ext wounds consult wound nurse continue sacral treatment per wound center Morbid obesity, BMI 43.2 encourage diet/lifestyle changes Diet: DMII/HH/low sodium DVT prophylaxis: On Coumadin Dispo: PT/OT ordered for further recs Admission and Anticipated Discharge Date Admission Date: May 24, 2024 Subjective pt was seen laying in bed. family member at bedside. Denied episodes of SOB, felt like her lower extremity swelling was improving as well as the redness. Review of Systems Review of Systems: All systems reviewed & are unremarkable except as noted in Subjective Physical Exam Physical Exam: General: Alert, oriented. No acute distress Skin: lower extremities with erythema, R>L Psych: Appropriate mood and affect Neuro: difficulty with movements in the bed HEENT: NC/AT CV: RRR Resp: Breath sounds clear but decreased bilaterally, no increased effort of breathing Abdomen: Soft, nontender Extremities: +++ edema in lower extremities bilaterally, lower extremities with erythema, R>L. Results & Data Results & Data Vital Signs (Past 12 Hours) Vital Signs Temp Pulse Pulse Resp BP Pulse Ox O2 Del Method 05/26/24 10:07 36.7 C 74 21 130/66 98 Nasal Cannula 05/26/24 09:17 Nasal Cannula 05/26/24 07:26 68 05/26/24 07:14 37.0 C 71 20 119/46 L 97 Nasal Cannula 05/26/24 03:52 36.5 C 68 19 128/67 98 Nasal Cannula O2 Flow Rate 05/26/24 10:07 2 05/26/24 09:17 2 05/26/24 07:26 05/26/24 07:14 2 05/26/24 03:52 2
[2024-05-27 06:20] LABS: Basophils % (auto) 1.1 %; Eosinophils # (auto) 0.32 K/uL (0.00-0.50); Eosinophils % (auto) 3.6 %; Hematocrit (blood only) 34.5 % (37.0-47.0); Hemoglobin 10.5 g/dl (12.0-16.0); Immature Granulocytes # (auto) 0.36 K/uL (0.01-0.20); Lymphocytes # (auto) 1.57 K/uL (1.20-3.40); Lymphocytes % (auto) 17.7 %; Mean Corpuscular Hemoglobin 26.6 pg (25.0-34.0); Mean Corpuscular Hgb Conc 30.4 g/dL (32.0-36.0); Mean Corpuscular Volume 87.3 fL (80.0-100.0); Mean Platelet Volume 11.1 fL (9.4-12.4); Monocytes # (auto) 0.89 K/uL (0.11-0.59); Neutrophils # (auto) 5.65 K/uL (1.40-6.50); Neutrophils % (auto) 63.6 %; Platelet Count 261 K/uL (130-400); RDW Coefficient of Variation 14.1 % (11.5-14.5); RDW Standard Deviation 45.1 fL (36.4-46.3); Red Blood Count 3.95 M/uL (4.20-5.40); White Blood Count 8.89 K/ul (4.8-10.8)
[2024-05-27 06:26] LABS: BUN Creatinine Ratio 20.2 (10-20); Calcium 8.7 mg/dl (8.6-10.3); Creatinine Clr Calc Pharmacy 56.1 ml/min; Est GFR (African American) 61.9 ml/min; Est GFR (Non-African American) 53.4 ml/min; Magnesium 2.2 mg/dl (1.7-2.4); Phosphorus 3.2 mg/dl (2.5-4.9); Potassium 4.3 mmol/L (3.5-5.1)
[2024-05-27 06:58] LABS: INR 1.9 (0.9-1.1); Prothrombin Time 19.7 Seconds (9.0-12.0)
--- NOTE | 2024-05-27 09:43 | Cardiology Progress Note ---
Date of Service May 27, 2024 Assessment & Plan (1) Pre-syncope: (2) Atrial tachycardia, paroxysmal: (3) Chronic diastolic CHF (congestive heart failure): (4) Aortic stenosis: (5) CAD (coronary artery disease): (6) Bifascicular block: Plan Medically complex 83 year old female presents with presyncopal symptoms associated with short runs of paroxysmal atrial tach on telemetry. Today on exam she is feeling well, heart rates 60s on telemetry. Mild hypervolemia, although difficult to assess due to body habitus and baseline lymphedema. - responding well to IV diuresis, continue Lasix IV 40 mg BID - continue metoprolol, spironolactone, warfarin (INR goal 2-3), rosuvastatin - Daily standing weights. Strict I's/O. 2 g sodium diet. - repeat echo after discharge, can consider outpatient valve clinic referral - follow up with outpatient [facility] cardiology Case discussed with supervising physician, further recommendations per Dr. Gill. I spent a total of 30 minutes on the date of service in preparation, delivery, and documentation of the care provided to this patient excluding any time spent in the performance of separately billed services. This visit was a split-shared visit with the substantial portion of the decision making performed by the supervising heel sander/billing provider. Admission and Anticipated Discharge Date Admission Date: May 24, 2024 Supervising Physician Co-Signing Physician Notes I have personally performed a history and physical examination on the patient. I have reviewed the advance practitioner's documentation, and I agree with, and take responsibility for the plan of care. I spent a total of 35 minutes on the date of service in preparation, delivery, and documentation of the care provided to this patient, excluding any time spent in the performance of separately billed services. Subjective On evaluation today states she feels well. Tired, did not sleep well due to neuropathy pain. Denies chest pain, shortness of breath. Thinks edema is improving. Weight trending down. Review of Systems Review of Systems: CONSTITUTIONAL: No change in weight, No weakness, No fatigue and No fevers, No sweats or chills. PULMONARY: No cough, sputum, or hemoptysis, No wheezing, No shortness of breath and No recent change in breathing. CARDIOVASCULAR: No chest pain, No dyspnea on exertion, + edema, No palpitations and No syncope. GASTROINTESTINAL: No abdominal pain, No change in bowel habits, No significant heartburn, No nausea, No vomiting, No diarrhea, No constipation, No blood in stools or black tarry stools. No dysphagia. HEMATOLOGIC: No abnormal bleeding and No bruising. NEUROLOGICAL: Normal balance, No headaches and No weakness. Physical Exam Physical Exam: General: No acute distress. A+Ox3. Obese. HEENT: Normocephalic. Atraumatic. PERRL. EOMI. Conjunctiva and sclera clear. NECK: No carotid bruits. No JVD. Carotid upstrokes are brisk. Heart: RRR. S1 and S2 noted. +3/6 systolic murmur. No rubs or gallops. PMI non displaced. Lungs: Clear to auscultation. No wheezes. No rhonchi. No rales. Abdomen: Normal bowel sounds. Soft. Nontender. No masses or organomegaly. No abdominal bruits. Extremities: 1+ bilateral LE edema, + lymphedema. No clubbing or cyanosis. Pulses: radial=2/4, posterior tibial=2/4, dorsalis pedis = 2/4. NEURO: No focal deficits. PSYCH: Appropriate affect and insight. Results & Data Vital Signs (Past 12 Hours) Vital Signs Temp Pulse Pulse Resp BP Pulse Ox O2 Del Method 05/27/24 08:11 Nasal Cannula 05/27/24 07:21 69 05/27/24 06:50 36.4 C L 59 L 20 131/77 97 Nasal Cannula 05/27/24 04:02 36.6 C 64 18 147/57 H 98 Nasal Cannula 05/27/24 00:06 37.1 C 81 18 136/75 98 Nasal Cannula 05/26/24 22:00 66 O2 Flow Rate 05/27/24 08:11 2 05/27/24 07:21 05/27/24 06:50 2 05/27/24 04:02 2 05/27/24 00:06 2 05/26/24 22:00 Laboratory Results Coagulation 05/27/24 Range/Units 05:24 PT 19.7 H (9.0-12.0) Seconds CBC 05/27/24 Range/Units 05:24 WBC 8.89 (4.8-10.8) K/ul RBC 3.95 L (4.20-5.40) M/uL Hgb 10.5 L (12.0-16.0) g/dl Hct 34.5 L (37.0-47.0) % Plt Count 261 (130-400) K/uL Neut # (Auto) 5.65 (1.40-6.50) K/uL Lymph # (Auto) 1.57 (1.20-3.40) K/uL [place] # (Auto) 0.89 H (0.11-0.59) K/uL Eos # (Auto) 0.32 (0.00-0.50) K/uL Baso # (Auto) 0.10 (0.00-0.20) K/uL Comprehensive Metabolic Panel 05/27/24 Range/Units 05:24 Sodium 135 L (136-145) mmol/L Potassium 4.3 (3.5-5.1) mmol/L Chloride 99 (98-107) mmol/L Carbon Dioxide 32 (21-32) mmol/L BUN 20 (6-23) mg/dl Creatinine 0.99 (0.6-1.2) mg/dl Glucose 165 H (70-99(Fasting)) mg/dl Calcium 8.7 (8.6-10.3) mg/dl Intake and Output 05/26/24 05/27/24 05/27/24 22:59 06:59 14:59 Intake Total 350 / 1040 50 / 50 Output Total 1525 / 4776 1150 / 4776 Balance -1175 / -3736 -1150 / -3736 50 / 50 Intake: IV 50 / 50 cefTRIAXone SODIUM 2,000 mg In 50 / 50 50 ml @ 100 mls/hr IV Q24H [facility] Rx#:[id number] Oral 350 / 990 Output: Urine Amount (Catheter) 1525 / 4775 1150 / 4775 Villarreal/Indwelling 1525 / 4775 1150 / 4775 Other: Weight 113.7 kg Weight Measurement Method Standing Scale (4) Aortic stenosis Cardiac valve disease etiology: nonrheumatic Qualified Code(s): I35.0 - Nonrheumatic aortic (valve) stenosis (5) CAD (coronary artery disease) Associated angina: without angina Coronary Disease-Associated Artery/Lesion type: [place] artery [place] vs. transplanted heart: [place] heart Qualified Code(s): I25.10 - Atherosclerotic heart disease of [place] coronary artery wit hout angina pectoris
--- NOTE | 2024-05-27 14:14 | Hospitalist Progress Note ---
Date of Service May 27, 2024 Assessment & Plan (1) Acute on chronic diastolic CHF (congestive heart failure): (2) Hypokalemia: (3) Hypomagnesemia: (4) Hypophosphatemia: (5) Paroxysmal atrial flutter: (6) Acquired lymphedema: (7) Elevated troponin: (8) Moderate aortic stenosis: (9) LUZ MARIA (obstructive sleep apnea): (10) Morbid obesity with BMI of 40.0-44.9, adult: (11) Chronic hypoxic respiratory failure: Plan Pt is an 83-year-old female with past med history significant for type 2 diabetes, diabetic polyneuropathy, obstructive sleep apnea noncompliant with CPAP on 2 L oxygen, paroxysmal SVT, nonsustained ventricular tachycardia, A- flutter, diastolic CHF, hypertension, nonrheumatic aortic valve stenosis, obesity, GERD, CKD stage III, osteoarthritis, history of breast cancer, history of chronic lymphedema, history of PE who presents with increased lower extremity swelling. Acute on chronic diastolic CHF B/L Acquired lymphedema Moderate aortic valve stenosis Possible Cellulitis R>L Increased lower extremity swelling BNP 177 Chest XRAY noting stable cardiomegaly echo from 09/2023 moderate Aortic stenosis, EF 55-59%, small apical WMA possible old [place], compared to prior echo WMA was new received 40mg IV lasix in ED and thus far 1200ml output continue lasix IV 40mg BID, add KCL supplementation daily weights, strict I and O Repeat echo with noted modrate to severe aortic stenosis Wound care consult On rocephin for possible cellulitis(R>L) and UTI (see below) consult cardiology due to above and concern for tachyarrhythmia, appreciate recs -responding well to IV diuresis, continue Lasix IV 40 mg BID - continue metoprolol, spironolactone, warfarin (INR goal 2-3), rosuvastatin - Daily standing weights. Strict I's/O. 2 g sodium diet. - repeat echo after discharge, can consider outpatient valve clinic referral - follow up with outpatient [facility] cardiology Continue to monitor Pre Syncope Tachy-arrhythmia pt reports, "spells," where she gets nervousness in her chest and feels like she could pass out, she reports a few seconds of passing out in ED, no irwin chest pain in ED when pt was exerting in bathroom she became symptomatic of these, "spells" and was her HR was in the 200s, concern for flutter vs Monomorphic Vtach @ 1813 and 1930 monitor on tele and replete lytes Cardiology consulted, appreciate recs History of a flutter History of paroxysmal SVT PAF Continue metoprolol and Coumadin as above Elevated trop Trop elevated and 19.7, peaked and downtrended to 34.5 Likely in setting of above Doubt ACS UTI UA suggestive of infection urine Cx grew pansensitive E coli and GBS Started on Rocephin (tolerated class in the past), continue in setting of cellulitis treatment as well (see above) Consider 5 days of treatment Hypokalemia Replete as needed keep above 4 secondary to history of arrhythmias Hypomagnesemia Replete as needed keep above 2.0 secondary to history of arrhythmias Hypophosphatemia Replete as needed Chronic Anemia hgb 10, appears baseline Anemia panel for AM- iron, b12 and folate -all normal Supplement as needed Chronic hypoxic resp failure On 2L chronically continue to monitor History of PE Continue warfarin T2DM A1c 6.7 Mar 27 2024 Lantus/novolog per protocol, hold metformin Obstructive sleep apnea Oxygen at bedtime, patient noncompliant with CPAP Hypertension BP elevated in ED; however small cuff noted to be on pt, large cuff placed and SBP in 140s received IV labetolol in ED continue metoprolol, previously on lisinopril but this was discontinued History of breast cancer S/p left mastectomy previous on anastrazole Sacral wound/Bilateral lower ext wounds consult wound nurse continue sacral treatment per wound center Morbid obesity, BMI 43.2 encourage diet/lifestyle changes Diet: DMII/HH/low sodium DVT prophylaxis: On Coumadin Dispo: PT/OT ordered for further recs Admission and Anticipated Discharge Date Admission Date: May 24, 2024 Subjective Pt was seen while sitting in chair at bedside. Denied acute concerns. notes lower extremities are improving. Review of Systems Review of Systems: All systems reviewed & are unremarkable except as noted in Subjective Physical Exam Physical Exam: General: Alert, oriented. No acute distress Skin: lower extremities with erythema, R>L Psych: Appropriate mood and affect Neuro: difficulty with movements HEENT: NC/AT CV: RRR Resp: Breath sounds clear but decreased bilaterally, no increased effort of breathing Abdomen: Soft, nontender Extremities: +++ edema in lower extremities bilaterally, lower extremities with erythema, R>L. Results & Data Results & Data Vital Signs (Past 12 Hours) Vital Signs Temp Pulse Pulse Resp BP Pulse Ox O2 Del Method 05/27/24 10:43 36.6 C 70 21 136/69 96 Nasal Cannula 05/27/24 08:11 Nasal Cannula 05/27/24 07:21 69 05/27/24 06:50 36.4 C L 59 L 20 131/77 97 Nasal Cannula 05/27/24 04:02 36.6 C 64 18 147/57 H 98 Nasal Cannula O2 Flow Rate 05/27/24 10:43 2 05/27/24 08:11 2 05/27/24 07:21 05/27/24 06:50 2 05/27/24 04:02 2
[2024-05-27] MEDS: traMADol HCL 50 MG TABLET PO PRN (19:36)
[2024-05-27] MEDS: NYSTATIN POWDER 15GM BTL EXT SCH (21:48)
[2024-05-28 06:56] LABS: Calcium 8.8 mg/dl (8.6-10.3); Magnesium 2.2 mg/dl (1.7-2.4); Potassium 4.4 mmol/L (3.5-5.1)
[2024-05-28 07:08] LABS: Creatinine Clr Calc Pharmacy 55.1 ml/min; Est GFR (African American) 61.2 ml/min; Est GFR (Non-African American) 52.8 ml/min; Phosphorus 4.5 mg/dl (2.5-4.9)
[2024-05-28 07:11] LABS: INR 1.9 (0.9-1.1); Prothrombin Time 19.1 Seconds (9.0-12.0)
[2024-05-28 07:46] LABS: Basophils # (auto) 0.11 K/uL (0.00-0.20); Basophils % (auto) 1.2 %; Eosinophils # (auto) 0.36 K/uL (0.00-0.50); Eosinophils % (auto) 4.1 %; Hematocrit (blood only) 37.5 % (37.0-47.0); Hemoglobin 11.3 g/dl (12.0-16.0); Immature Granulocytes % (auto) 4.5 %; Lymphocytes # (auto) 1.57 K/uL (1.20-3.40); Lymphocytes % (auto) 17.8 %; Mean Corpuscular Hemoglobin 26.5 pg (25.0-34.0); Mean Corpuscular Hgb Conc 30.1 g/dL (32.0-36.0); Mean Platelet Volume 11.1 fL (9.4-12.4); Monocytes # (auto) 0.91 K/uL (0.11-0.59); Monocytes % (auto) 10.3 %; Neutrophils # (auto) 5.49 K/uL (1.40-6.50); Neutrophils % (auto) 62.1 %; Platelet Count 265 K/uL (130-400); RDW Coefficient of Variation 14.1 % (11.5-14.5); RDW Standard Deviation 45.2 fL (36.4-46.3); Red Blood Count 4.26 M/uL (4.20-5.40); White Blood Count 8.84 K/ul (4.8-10.8)
--- NOTE | 2024-05-28 11:51 | Cardiology Progress Note ---
Date of Service May 28, 2024 Assessment & Plan (1) Pre-syncope: (2) Atrial tachycardia, paroxysmal: (3) Chronic diastolic CHF (congestive heart failure): (4) Aortic stenosis: (5) CAD (coronary artery disease): (6) Bifascicular block: Plan Medically complex 83 year old female presents with presyncopal symptoms associated with short runs of paroxysmal atrial tach on telemetry. Today on exam she is feeling well, heart rates 60s on telemetry. Mild hypervolemia, although difficult to assess due to body habitus and baseline lymphedema. -patient continues to diurese well, currently -3L fluid balance. -Continue Lasix 40mg IV BID today, reassess fluid status in the AM -labs stable. Closely monitor renal function as well as maintain goal serum K> 4.0 and Serum Mag> 2.0. -Strict I&O's and daily weights. -Reinforce CHF teaching. -Continue to closely monitor valvular progression as most recent echo (05/25/24) demonstrates moderate to severe Aortic valve stenosis. -Continue Toprol xl 25mg BID, and Spironolactone 12.5mg daily as part of HF regimen. -Continue warfarin as per current regimen for oral AC therapy Case has been discussed with Dr. Barboza. Further recommendations regarding plan of care as per his assessment. I spent a total of 30 minutes on the date of service in preparation, delivery, documentation of the care provided to the patient excluding any time spent in the performance of separately billed services. OSCAR Bowser [facility] Admission and Anticipated Discharge Date Admission Date: May 24, 2024 Supervising Physician Co-Signing Physician Notes Attending attestation: Case reviewed with the advanced practitioner. I have personally performed a history and physical examination on the patient. I have reviewed the advanced practitioner's documentation on the date of service referenced in note, and I agree with, and take responsibility for the plan of care. Repeat limited echo tomorrow, 05/29/2024 to reassess gradients across aortic valve. I spent a total of 20 minutes coordinating, documenting, and providing care for this patient excluding time spent in the performance of separately billed services or time spent by another provider. Enmanuel Barboza, Subjective 05/28/2024: Patient seen and examined in follow up today. Feeling well from a cardiac perspective. She is resting comfortably in bed at this time, but was ambulating around the room upon my arrival. Denies any chest pain, pressure, palpitations, PND, pre-syncope, syncope or edema. Denies any irwin bleeding. she does endorse some mild dyspnea especially with exertion Labs, vitals, diagnostics, telemetry and documentation reviewed. Telemetry reviewed showing SB/SA rates 50's-70's with occasional PAC's. No acute events overnight. Review of Systems Review of Systems: All systems reviewed & are unremarkable except as noted in HPI & below Physical Exam Constitutional: well developed and well nourished; no acute distress and not ill appearing Neck: normal visual inspection and trachea midline Respiratory: normal respiratory effort; no respiratory distress, no labored breathing and no cough Auscultation: lungs clear to auscultation bilaterally; no crackles, no rales, no rhonchi and no wheezes Cardiovascular: Rate/Rhythm: regular rate and regular rhythm Heart Sounds: normal S1, normal S2 and + murmur (+2/6 systolic murmur) Vessels: dorsalis pedis pulses present; no JVD Extremities: + edema (+1 BLE) Skin: no rashes, warm and dry Psychiatric: A+Ox3, euthymic affect Results & Data Vital Signs (Past 12 Hours) Vital Signs Temp Pulse Pulse Resp BP Pulse Ox O2 Del Method 05/28/24 10:38 63 05/28/24 10:27 36.6 C 85 21 121/73 95 Nasal Cannula 05/28/24 07:07 36.6 C 68 21 120/71 95 Nasal Cannula 05/28/24 04:10 36.6 C 62 18 134/60 98 Nasal Cannula O2 Flow Rate 05/28/24 10:38 05/28/24 10:27 2 05/28/24 07:07 2 05/28/24 04:10 2 Laboratory Results Coagulation 05/28/24 Range/Units 05:53 PT 19.1 H (9.0-12.0) Seconds CBC 05/28/24 05/28/24 Range/Units 05:53 07:14 WBC Cancelled 8.84 RBC Cancelled 4.26 Hgb Cancelled 11.3 L Hct Cancelled 37.5 Plt Count Cancelled 265 Neut # (Auto) Cancelled 5.49 Lymph # (Auto) Cancelled 1.57 [place] # (Auto) Cancelled 0.91 H Eos # (Auto) Cancelled 0.36 Baso # (Auto) Cancelled 0.11 Comprehensive Metabolic Panel 05/28/24 Range/Units 05:53 Sodium 136 (136-145) mmol/L Potassium 4.4 (3.5-5.1) mmol/L Chloride 99 (98-107) mmol/L Carbon Dioxide 31 (21-32) mmol/L BUN 27 H (6-23) mg/dl Creatinine 1.00 (0.6-1.2) mg/dl Glucose 175 H (70-99(Fasting)) mg/dl Calcium 8.8 (8.6-10.3) mg/dl Intake and Output 05/27/24 05/28/24 05/28/24 22:59 06:59 14:59 Intake Total 350 / 1390 50 / 50 Output Total 1275 / 4450 950 / 4450 Balance -925 / -3060 -950 / -3060 50 / 50 Intake: IV 50 / 50 cefTRIAXone SODIUM 2,000 mg In 50 / 50 50 ml @ 100 mls/hr IV Q24H [facility] Rx#:[id number] Oral 350 / 1340 Output: Urine Amount (Catheter) 1275 / 4450 950 / 4450 Villarreal/Indwelling 1275 / 4450 950 / 4450 Other: Weight 112.2 kg Weight Measurement Method Standing Scale (4) Aortic stenosis Cardiac valve disease etiology: nonrheumatic Qualified Code(s): I35.0 - Nonrheumatic aortic (valve) stenosis (5) CAD (coronary artery disease) Associated angina: without angina Coronary Disease-Associated Artery/Lesion type: [place] artery [place] vs. transplanted heart: [place] heart Qualified Code(s): I25.10 - Atherosclerotic heart disease of [place] coronary artery without angina pectoris
--- NOTE | 2024-05-28 12:23 | Hospitalist Progress Note ---
Date of Service May 28, 2024 Assessment & Plan (1) Acute on chronic diastolic CHF (congestive heart failure): (2) Hypokalemia: (3) Hypomagnesemia: (4) Hypophosphatemia: (5) Paroxysmal atrial flutter: (6) Acquired lymphedema: (7) Elevated troponin: (8) Moderate aortic stenosis: (9) LUZ MARIA (obstructive sleep apnea): (10) Morbid obesity with BMI of 40.0-44.9, adult: (11) Chronic hypoxic respiratory failure: Plan Pt is an 83-year-old female with past med history significant for type 2 diabetes, diabetic polyneuropathy, obstructive sleep apnea noncompliant with CPAP on 2 L oxygen, paroxysmal SVT, nonsustained ventricular tachycardia, A- flutter, diastolic CHF, hypertension, nonrheumatic aortic valve stenosis, obesity, GERD, CKD stage III, osteoarthritis, history of breast cancer, history of chronic lymphedema, history of PE who presents with increased lower extremity swelling. Acute on chronic diastolic CHF B/L Acquired lymphedema Moderate aortic valve stenosis Possible Cellulitis R>L Increased lower extremity swelling BNP 177 Chest XRAY noting stable cardiomegaly echo from 09/2023 moderate Aortic stenosis, EF 55-59%, small apical WMA possible old [place], compared to prior echo WMA was new received 40mg IV lasix in ED and thus far 1200ml output continue lasix IV 40mg BID, add KCL supplementation daily weights, strict I and O Repeat echo with noted moderate to severe aortic stenosis, mild LVH Wound care consult On rocephin for possible cellulitis(R>L) and UTI (see below) consult cardiology due to above and concern for tachyarrhythmia, appreciate recs -responding well to IV diuresis, continue Lasix IV 40 mg BID - continue metoprolol, spironolactone, warfarin (INR goal 2-3), rosuvastatin - Daily standing weights. Strict I's/O. 2 g sodium diet. - repeat echo after discharge, can consider outpatient valve clinic referral - [facility] with [facility] cardi[facility] Continue to monitor Pre Syncope Tachy-arrhythmia pt reports, "spells," where she gets nervousness in her chest and feels like she could pass out, she reports a few seconds of passing out in ED, no irwin chest pain in ED when pt was exerting in bathroom she became symptomatic of these, "spells" and was her HR was in the 200s, concern for flutter vs Monomorphic Vtach @ 1813 and 1930 monitor on tele and replete lytes Cardiology consulted, appreciate recs History of a flutter History of paroxysmal SVT PAF Continue metoprolol and Coumadin as above Elevated trop Trop elevated and 19.7, peaked and downtrended to 34.5 Likely in setting of above Doubt ACS UTI UA suggestive of infection urine Cx grew pansensitive E coli and GBS Started on Rocephin (tolerated class in the past), continue in setting of cellulitis treatment as well (see above) Consider 5 days of treatment Hypokalemia Replete as needed keep above 4 secondary to history of arrhythmias Hypomagnesemia Replete as needed keep above 2.0 secondary to history of arrhythmias Hypophosphatemia Replete as needed Chronic Anemia hgb 10, appears baseline Anemia panel for AM- iron, b12 and folate -all normal Supplement as needed Intertrigo Sacral bruising Continue prn nystatin Wound care consulted Chronic hypoxic resp failure On 2L chronically continue to monitor History of PE Continue warfarin T2DM A1c 6.7 Mar 27 2024 Lantus/novolog per protocol, hold metformin Obstructive sleep apnea Oxygen at bedtime, patient noncompliant with CPAP Hypertension BP elevated in ED; however small cuff noted to be on pt, large cuff placed and SBP in 140s received IV labetolol in ED continue metoprolol, previously on lisinopril but this was discontinued History of breast cancer S/p left mastectomy previous on anastrazole Sacral wound/Bilateral lower ext wounds consult wound nurse continue sacral treatment per wound center Morbid obesity, BMI 43.2 encourage diet/lifestyle changes Diet: DMII/HH/low sodium DVT prophylaxis: On Coumadin Dispo: PT/OT ordered for further recs Admission and Anticipated Discharge Date Admission Date: May 24, 2024 Subjective pt was seen while sitting in chair at bedside. States having hand and leg cramps. Notes hx of RLS. Otherwise denies acute concerns. Review of Systems Review of Systems: All systems reviewed & are unremarkable except as noted in Subjective Physical Exam Physical Exam: General: Alert, oriented. No acute distress Skin: lower extremities with erythema, R>L Psych: Appropriate mood and affect Neuro: difficulty with movements HEENT: NC/AT CV: RRR Resp: Breath sounds clear but decreased bilaterally, no increased effort of breathing Abdomen: Soft, nontender Extremities: +++ edema in lower extremities bilaterally, lower extremities with erythema, R>L. Results & Data Results & Data Vital Signs (Past 12 Hours) Vital Signs Temp Pulse Pulse Resp BP Pulse Ox O2 Del Method 05/28/24 11:39 Nasal Cannula 05/28/24 10:38 63 05/28/24 10:27 36.6 C 85 21 121/73 95 Nasal Cannula 05/28/24 07:07 36.6 C 68 21 120/71 95 Nasal Cannula 05/28/24 04:10 36.6 C 62 18 134/60 98 Nasal Cannula O2 Flow Rate 05/28/24 11:39 2 05/28/24 10:38 05/28/24 10:27 2 05/28/24 07:07 2 05/28/24 04:10 2
[2024-05-28] MEDS: WARFARIN SOD 2.5 MG TAB PO SCH (16:34)
[2024-05-28] MEDS: MELATONIN 3 MG TAB PO PRN (21:13)
[2024-05-29 06:58] LABS: Basophils # (auto) 0.14 K/uL (0.00-0.20); Basophils % (auto) 1.4 %; Eosinophils # (auto) 0.31 K/uL (0.00-0.50); Eosinophils % (auto) 3.1 %; Hematocrit (blood only) 36.2 % (37.0-47.0); Hemoglobin 11.2 g/dl (12.0-16.0); Immature Granulocytes # (auto) 0.43 K/uL (0.01-0.20); Immature Granulocytes % (auto) 4.3 %; Lymphocytes # (auto) 1.58 K/uL (1.20-3.40); Lymphocytes % (auto) 15.9 %; Mean Corpuscular Hemoglobin 26.7 pg (25.0-34.0); Mean Corpuscular Hgb Conc 30.9 g/dL (32.0-36.0); Mean Corpuscular Volume 86.2 fL (80.0-100.0); Mean Platelet Volume 11.2 fL (9.4-12.4); Monocytes # (auto) 1.06 K/uL (0.11-0.59); Monocytes % (auto) 10.7 %; Neutrophils # (auto) 6.42 K/uL (1.40-6.50); Neutrophils % (auto) 64.6 %; Platelet Count 283 K/uL (130-400); RDW Coefficient of Variation 14.1 % (11.5-14.5); White Blood Count 9.94 K/ul (4.8-10.8)
[2024-05-29 07:31] LABS: INR 1.8 (0.9-1.1); Prothrombin Time 18.5 Seconds (9.0-12.0)
[2024-05-29 07:33] LABS: BUN Creatinine Ratio 33.7 (10-20); Calcium 9.1 mg/dl (8.6-10.3); Creatinine Clr Calc Pharmacy 57.9 ml/min; Est GFR (African American) 65.1 ml/min; Est GFR (Non-African American) 56.2 ml/min; Magnesium 2.1 mg/dl (1.7-2.4); Phosphorus 4.8 mg/dl (2.5-4.9); Potassium 4.6 mmol/L (3.5-5.1)
--- NOTE | 2024-05-29 08:39 | Cardiology Progress Note ---
Date of Service May 29, 2024 Assessment & Plan (1) Pre-syncope: (2) Atrial tachycardia, paroxysmal: (3) Chronic diastolic CHF (congestive heart failure): (4) Aortic stenosis: (5) CAD (coronary artery disease): (6) Bifascicular block: Plan Medically complex 83 year old female presents with presyncopal symptoms associated with short runs of paroxysmal atrial tach on telemetry. Today on exam she is feeling well, heart rates 60s on telemetry. Mild hypervolemia, although difficult to assess due to body habitus and baseline lymphedema. -patient continues to diurese well, currently -3L fluid balance. -Continue Lasix 40mg IV BID today, reassess fluid status in the AM -labs stable. Closely monitor renal function as well as maintain goal serum K> 4.0 and Serum Mag> 2.0. -Strict I&O's and daily weights. -Reinforce CHF teaching. -Continue to closely monitor valvular progression as most recent echo (05/25/24) demonstrates moderate to severe Aortic valve stenosis. -Continue Toprol xl 25mg BID, and Spironolactone 12.5mg daily as part of HF regimen. -Continue warfarin as per current regimen for oral AC therapy 05/29/2024: -patient continues with good diuresis. Currently a -2290ml fluid balance, Down 2kg. -Renal function remains stable, closely monitor. Will continue Lasix 40mg IV BID today and reassess fluid satus in the AM -labs stable. Closely monitor renal function as well as maintain goal serum K> 4.0 and Serum Mag> 2.0. -Strict I&O's and daily weights. -Reinforce CHF teaching. -Repeat limited echocardiogram was obtained due to concerns of progression of valvular disease. Her echo demonstrates moderate . CW velocity of 3.6m/s and mean gradient 30mmHg. Will continue to monitor closely outpatient. At this time, focus is maintaining proper fluid status. -Continue Toprol xl 25mg BID, and Spironolactone 12.5mg daily as part of HF regimen. -Continue warfarin as per current regimen for oral AC therapy Case has been discussed with Dr. Barboza. Further recommendations regarding plan of care as per his assessment. I spent a total of 30 minutes on the date of service in preparation, delivery, documentation of the care provided to the patient excluding any time spent in the performance of separately billed services. OSCAR Bowser [facility] Admission and Anticipated Discharge Date Admission Date: May 24, 2024 Supervising Physician Co-Signing Physician Notes Attending attestation: Case reviewed with the advanced practitioner. I have personally performed a history and physical examination on the patient. I have reviewed the advanced practitioner's documentation on the date of service referenced in note, and I agree with, and take responsibility for the plan of care. Repeat limited echo performed today 05/29/2024 consistent with moderate aortic stenosis. INR today 05/29/2024 is 1.8, continue Coumadin, 5 mg today, repeat INR tomorrow. Transition from IV furosemide 40 mg IV twice daily to torsemide 20 mg twice daily at 7 AM, 1400 starting tomorrow 05/29/2024. I spent a total of 20 minutes coordinating, documenting, and providing care for this patient excluding time spent in the performance of separately billed services or time spent by another provider. Enmanuel Barboza, Subjective 05/29/24: Patient seen and examined in follow up today. Feeling well from a cardiac perspective. Denies any chest pain, pressure, palpitations, reports improvement in her breathing, ambulating around her room, also reports continued reduction in her leg swelling. Only complaint is constipation. Labs, vitals, diagnostics, telemetry and documentation reviewed. Telemetry reviewed showing SR with occasional PAC's overnight rates 60-80's. No acute events. -2290 fluid balance. 2kg weight deficit. Review of Systems Review of Systems: All systems reviewed & are unremarkable except as noted in HPI & below Physical Exam Constitutional: well developed and well nourished; no acute distress and not ill appearing Neck: normal visual inspection and trachea midline Respiratory: normal respiratory effort; no respiratory distress, no labored breathing and no cough Auscultation: lungs clear to auscultation bilaterally; no crackles, no rales, no rhonchi and no wheezes Cardiovascular: Rate/Rhythm: regular rate and regular rhythm Heart Sounds: normal S1, normal S2 and + murmur (+2/6 systolic murmur) Vessels: dorsalis pedis pulses present; no JVD Extremities: + edema (+1 BLE) Skin: no rashes, warm and dry Psychiatric: A+Ox3, euthymic affect Results & Data Vital Signs (Past 12 Hours) Vital Signs Temp Pulse Resp BP Pulse Ox O2 Del Method O2 Flow Rate 05/29/24 07:30 36.5 C 77 18 170/104 H 95 Nasal Cannula 2.0 05/29/24 03:17 36.6 C 62 20 123/74 95 Nasal Cannula 2 05/29/24 00:15 Nasal Cannula 2 05/28/24 22:27 36.7 C 81 18 129/75 97 Nasal Cannula 2 Laboratory Results Coagulation 05/29/24 Range/Units 06:19 PT 18.5 H (9.0-12.0) Seconds CBC 05/29/24 Range/Units 06:19 WBC 9.94 (4.8-10.8) K/ul RBC 4.20 (4.20-5.40) M/uL Hgb 11.2 L (12.0-16.0) g/dl Hct 36.2 L (37.0-47.0) % Plt Count 283 (130-400) K/uL Neut # (Auto) 6.42 (1.40-6.50) K/uL Lymph # (Auto) 1.58 (1.20-3.40) K/uL [place] # (Auto) 1.06 H (0.11-0.59) K/uL Eos # (Auto) 0.31 (0.00-0.50) K/uL Baso # (Auto) 0.14 (0.00-0.20) K/uL Comprehensive Metabolic Panel 05/29/24 Range/Units 06:19 Sodium 134 L (136-145) mmol/L Potassium 4.6 (3.5-5.1) mmol/L Chloride 96 L (98-107) mmol/L Carbon Dioxide 30 (21-32) mmol/L BUN 32 H (6-23) mg/dl Creatinine 0.95 (0.6-1.2) mg/dl Glucose 179 H (70-99(Fasting)) mg/dl Calcium 9.1 (8.6-10.3) mg/dl Intake and Output 05/28/24 05/29/24 05/29/24 22:59 06:59 14:59 Intake Total 300 / 1210 300 / 1210 50 / 50 Output Total 1700 / 3500 650 / 3500 Balance -1400 / -2290 -350 / -2290 50 / 50 Intake: IV 50 / 50 cefTRIAXone SODIUM 2,000 mg In 50 / 50 50 ml @ 100 mls/hr IV Q24H [facility] Rx#:[id number] Oral 300 / 1160 300 / 1160 Output: Urine Amount (Catheter) 1700 / 3500 650 / 3500 Villar[place]/Indwelling 1700 / 3500 650 / 3500 Other: Weight 111.9 kg Weight Measurement Method Standing Scale Diagnostic Findings Repeat echo for reassessment of today: (Limited) Aortic valve moderately calcified moderate with peak CW velocity of 3.6m/s, mean gradient 30mmHg (4) Aortic stenosis Cardiac valve disease etiology: nonrheumatic Qualified Code(s): I35.0 - Nonrheumatic aortic (valve) stenosis (5) CAD (coronary artery disease) Associated angina: without angina Coronary Disease-Associated Artery/Lesion type: [place] artery [place] vs. transplanted heart: [place] heart Qualified Code(s): I25.10 - Atherosclerotic heart disease of [place] coronary artery without angina pectoris
--- NOTE | 2024-05-29 13:39 | Hospitalist Progress Note ---
Date of Service May 29, 2024 Assessment & Plan (1) Acute on chronic diastolic CHF (congestive heart failure): (2) Hypokalemia: (3) Hypomagnesemia: (4) Hypophosphatemia: (5) Paroxysmal atrial flutter: (6) Acquired lymphedema: (7) Elevated troponin: (8) Moderate aortic stenosis: (9) LUZ MARIA (obstructive sleep apnea): (10) Morbid obesity with BMI of 40.0-44.9, adult: (11) Chronic hypoxic respiratory failure: Plan Pt is an 83-year-old female with past med history significant for type 2 diabetes, diabetic polyneuropathy, obstructive sleep apnea noncompliant with CPAP on 2 L oxygen, paroxysmal SVT, nonsustained ventricular tachycardia, A- flutter, diastolic CHF, hypertension, nonrheumatic aortic valve stenosis, obesity, GERD, CKD stage III, osteoarthritis, history of breast cancer, history of chronic lymphedema, history of PE who presents with increased lower extremity swelling. Acute on chronic diastolic CHF B/L Acquired lymphedema Moderate aortic valve stenosis Possible Cellulitis R>L Increased lower extremity swelling BNP 177 Chest XRAY noting stable cardiomegaly echo from 09/2023 moderate Aortic stenosis, EF 55-59%, small apical WMA possible old [place], compared to prior echo WMA was new received 40mg IV lasix in ED and thus far 1200ml output continue lasix IV 40mg BID, add KCL supplementation daily weights, strict I and O Repeat echo with noted moderate to severe aortic stenosis, mild LVH Wound care consult On rocephin for possible cellulitis(R>L) and UTI (see below), day 03/20 consult cardiology due to above and concern for tachyarrhythmia, appreciate recs -responding well to IV diuresis, continue Lasix IV 40 mg BID - continue metoprolol, spironolactone, warfarin (INR goal 2-3), rosuvastatin - Daily standing weights. Strict I's/O. 2 g sodium diet. -echo repeated - follow up with outpatient [facility] cardiology Continue to monitor Pre Syncope Tachy-arrhythmia pt reports, "spells," where she gets nervousness in her chest and feels like she could pass out, she reports a few seconds of passing out in ED, no irwin chest pain in ED when pt was exerting in bathroom she became symptomatic of these, "spells" and was her HR was in the 200s, concern for flutter vs Monomorphic Vtach @ 1813 and 1930 monitor on tele and replete lytes Cardiology consulted, appreciate recs -as above History of a flutter History of paroxysmal SVT PAF Continue metoprolol and Coumadin as above Elevated trop Trop elevated and 19.7, peaked and downtrended to 34.5 Likely in setting of above Doubt ACS UTI UA suggestive of infection urine Cx grew pansensitive E coli and GBS Started on Rocephin (tolerated class in the past), continue in setting of cellulitis treatment as well (see above), day 5/ as above Hypokalemia Replete as needed keep above 4 secondary to history of arrhythmias Hypomagnesemia Replete as needed keep above 2.0 secondary to history of arrhythmias Hypophosphatemia Replete as needed Chronic Anemia hgb 10, appears baseline Anemia panel for AM- iron, b12 and folate -all normal Supplement as needed Intertrigo Sacral bruising Continue prn nystatin Wound care consulted Chronic hypoxic resp failure On 2L chronically continue to monitor History of PE Continue warfarin T2DM A1c 6.7 Mar 27 2024 Lantus/novolog per protocol, hold metformin Obstructive sleep apnea Oxygen at bedtime, patient noncompliant with CPAP Hypertension BP elevated in ED; however small cuff noted to be on pt, large cuff placed and SBP in 140s received IV labetolol in ED continue metoprolol, previously on lisinopril but this was discontinued History of breast cancer S/p left mastectomy previous on anastrazole Sacral wound/Bilateral lower ext wounds consult wound nurse continue sacral treatment per wound center Morbid obesity, BMI 43.2 encourage diet/lifestyle changes Diet: DMII/HH/low sodium DVT prophylaxis: On Coumadin Dispo: PT/OT ordered for further recs, pt states she wants to go home. script for bariatric walker provided Admission and Anticipated Discharge Date Admission Date: May 24, 2024 Subjective Pt was seen laying in bed. Denied acute concerns. Script for bariatric walker provided to case management Review of Systems Review of Systems: All systems reviewed & are unremarkable except as noted in Subjective Physical Exam Physical Exam: General: Alert, oriented. No acute distress Skin: lower extremities with erythema, R>L Psych: Appropriate mood and affect Neuro: difficulty with movements HEENT: NC/AT CV: RRR Resp: Breath sounds clear but decreased bilaterally, no increased effort of breathing Abdomen: Soft, nontender Extremities: +++ edema in lower extremities bilaterally, lower extremities with erythema, R>L. Results & Data Results & Data Vital Signs (Past 12 Hours) Vital Signs Temp Pulse Pulse Resp BP Pulse Ox O2 Del Method 05/29/24 13:16 Nasal Cannula 05/29/24 11:41 36.8 C 78 19 113/71 97 Nasal Cannula 05/29/24 07:30 36.5 C 77 18 170/104 H 95 Nasal Cannula 05/29/24 07:27 80 05/29/24 03:17 36.6 C 62 20 123/74 95 Nasal Cannula O2 Flow Rate 05/29/24 13:16 2 05/29/24 11:41 2.0 05/29/24 07:30 2.0 05/29/24 07:27 05/29/24 03:17 2
[2024-05-29] MEDS: POLYETHYLENE (MIRALAX) 17 GM PACK PO PRN (16:58)
[2024-05-30] MEDS: TORSEMIDE 20 MG TAB PO SCH (06:10)
[2024-05-30 06:12] LABS: Basophils # (auto) 0.14 K/uL (0.00-0.20); Basophils % (auto) 1.3 %; Eosinophils # (auto) 0.35 K/uL (0.00-0.50); Eosinophils % (auto) 3.3 %; Hematocrit (blood only) 38.5 % (37.0-47.0); Hemoglobin 11.9 g/dl (12.0-16.0); Immature Granulocytes # (auto) 0.49 K/uL (0.01-0.20); Immature Granulocytes % (auto) 4.6 %; Lymphocytes % (auto) 21.8 %; Mean Corpuscular Hemoglobin 26.9 pg (25.0-34.0); Mean Corpuscular Hgb Conc 30.9 g/dL (32.0-36.0); Mean Corpuscular Volume 87.1 fL (80.0-100.0); Mean Platelet Volume 11.4 fL (9.4-12.4); Monocytes % (auto) 9.5 %; Neutrophils # (auto) 6.27 K/uL (1.40-6.50); Neutrophils % (auto) 59.5 %; Platelet Count 306 K/uL (130-400); RDW Coefficient of Variation 14.4 % (11.5-14.5); RDW Standard Deviation 44.7 fL (36.4-46.3); Red Blood Count 4.42 M/uL (4.20-5.40); White Blood Count 10.55 K/ul (4.8-10.8)
[2024-05-30 06:18] LABS: INR 1.7 (0.9-1.1); Prothrombin Time 17.2 Seconds (9.0-12.0)
[2024-05-30 06:29] LABS: BUN Creatinine Ratio 37.5 (10-20); Calcium 9.5 mg/dl (8.6-10.3); Creatinine Clr Calc Pharmacy 52.8 ml/min; Est GFR (African American) 58.4 ml/min; Est GFR (Non-African American) 50.3 ml/min; Magnesium 2.3 mg/dl (1.7-2.4); Phosphorus 5.1 mg/dl (2.5-4.9); Potassium 4.8 mmol/L (3.5-5.1)
--- NOTE | 2024-05-30 08:26 | Cardiology Progress Note ---
Date of Service May 30, 2024 Assessment & Plan (1) Pre-syncope: (2) Atrial tachycardia, paroxysmal: (3) Chronic diastolic CHF (congestive heart failure): (4) Aortic stenosis: (5) CAD (coronary artery disease): (6) Bifascicular block: Plan Medically complex 83 year old female presents with presyncopal symptoms associated with short runs of paroxysmal atrial tach on telemetry. Today on exam she is feeling well, heart rates 60s on telemetry. Mild hypervolemia, although difficult to assess due to body habitus and baseline lymphedema. -patient continues to diurese well, currently -3L fluid balance. -Continue Lasix 40mg IV BID today, reassess fluid status in the AM -labs stable. Closely monitor renal function as well as maintain goal serum K> 4.0 and Serum Mag> 2.0. -Strict I&O's and daily weights. -Reinforce CHF teaching. -Continue to closely monitor valvular progression as most recent echo (05/25/24) demonstrates moderate to severe Aortic valve stenosis. -Continue Toprol xl 25mg BID, and Spironolactone 12.5mg daily as part of HF regimen. -Continue warfarin as per current regimen for oral AC therapy 05/29/2024: -patient continues with good diuresis. Currently a -2290ml fluid balance, Down 2kg. -Renal function remains stable, closely monitor. Will continue Lasix 40mg IV BID today and reassess fluid status in the AM -labs stable. Closely monitor renal function as well as maintain goal serum K> 4.0 and Serum Mag> 2.0. -Strict I&O's and daily weights. -Reinforce CHF teaching. -Repeat limited echocardiogram was obtained due to concerns of progression of valvular disease. Her echo demonstrates moderate . CW velocity of 3.6m/s and mean gradient 30mmHg. Will continue to monitor closely outpatient. At this time, focus is maintaining proper fluid status. -Continue Toprol xl 25mg BID, and Spironolactone 12.5mg daily as part of HF regimen. -Continue warfarin as per current regimen for oral AC therapy 05/30/2024: -Patient continues to show excellent diuresis. -2411 cc fluid balance at time of exam. She is down 10kg since admission. -Continue with Strict I&O's, daily weights and close monitoring of renal function as well as maintain goal serum K> 4.0 and Serum Mag> 2.0. -Continue Toprol xl 25mg BID, and Spironolactone 12.5mg Daily as part of HF regimen. patient was transitioned to Torsemide 20mg PO BID this morning. Continue to monitor fluid status. -Noted to be hypertensive at time of exam, this was prior to medications. If patient would remain hypertensive despite medication therapies, will give consideration to increasing spironolactone vs adding GIORGI-I/ARB. -Continue warfarin as per current regimen for oral AC therapy -Continue to work with PT. Case has been discussed with Dr. Barboza. Further recommendations regarding plan of care as per his assessment. I spent a total of 30 minutes on the date of service in preparation, delivery, documentation of the care provided to the patient excluding any time spent in the performance of separately billed services. [facility] Admission and Anticipated Discharge Date Admission Date: May 24, 2024 Supervising Physician Co-Signing Physician Notes Attending attestation: Case reviewed with the advanced practitioner. I have personally performed a history and physical examination on the patient. I have reviewed the advanced practitioner's documentation on the date of service referenced in note, and I agree with, and take responsibility for the plan of care. Repeat limited echo performed today 05/29/2024 consistent with moderate aortic stenosis. INR today 05/30/24: 1.7 , Increase coumadin to 7.5 mg daily IV furosemide changed to torsemide 20 mg BID to start today. Remove Villarreal catheter. Consider discharge if able to void. I spent a total of 20 minutes coordinating, documenting, and providing care for this patient excluding time spent in the performance of separately billed services or time spent by another provider. Enmanuel Barboza, DO Subjective 05/30/2024: Patient seen and examined in follow up today. Feeling well. She is currently out of bed into the recliner chair. Denies any chest pain, pressure, palpitations, shortness of breath, PND, pre- syncope, or syncope. Continues with lower extremity swelling, but continues to notice an improvement. Labs, vitals, diagnostics, telemetry and documentation reviewed. Telemetry reviewed showing SR/SA with rare PAC and PVC. Rates 50-80's No acute events overnight. -2411cc fluid balance. -10kg weight loss Review of Systems Review of Systems: All systems reviewed & are unremarkable except as noted in HPI & below Physical Exam Constitutional: well developed, well nourished and + overweight; no acute distress and not ill appearing Neck: normal visual inspection and trachea midline Respiratory: normal respiratory effort; no respiratory distress, no labored breathing and no cough Auscultation: lungs clear to auscultation bilaterally; no crackles, no rales, no rhonchi and no wheezes Cardiovascular: Rate/Rhythm: regular rate and regular rhythm Heart Sounds: normal S1, normal S2 and + murmur (+2/6 systolic murmur) Vessels: dorsalis pedis pulses present; no JVD Extremities: + edema (+1 BLE) Skin: no rashes, warm and dry Psychiatric: A+Ox3, euthymic affect Results & Data Vital Signs (Past 12 Hours) Vital Signs Temp Pulse Pulse Resp BP Pulse Ox O2 Del Method 05/30/24 07:00 36.8 C 68 19 174/63 H 95 Nasal Cannula 05/30/24 02:26 36.5 C 57 L 20 130/83 99 Nasal Cannula 05/29/24 23:07 79 05/29/24 22:15 36.8 C 75 20 133/69 97 Nasal Cannula 05/29/24 21:16 Nasal Cannula O2 Flow Rate 05/30/24 07:00 2.0 05/30/24 02:26 05/29/24 23:07 05/29/24 22:15 05/29/24 21:16 2 Laboratory Results Coagulation 05/30/24 Range/Units 05:28 PT 17.2 H (9.0-12.0) Seconds CBC 05/30/24 Range/Units 05:28 WBC 10.55 (4.8-10.8) K/ul RBC 4.42 (4.20-5.40) M/uL Hgb 11.9 L (12.0-16.0) g/dl Hct 38.5 (37.0-47.0) % Plt Count 306 (130-400) K/uL Neut # (Auto) 6.27 (1.40-6.50) K/uL Lymph # (Auto) 2.30 (1.20-3.40) K/uL [place] # (Auto) 1.00 H (0.11-0.59) K/uL Eos # (Auto) 0.35 (0.00-0.50) K/uL Baso # (Auto) 0.14 (0.00-0.20) K/uL Comprehensive Metabolic Panel 05/30/24 Range/Units 05:28 Sodium 135 L (136-145) mmol/L Potassium 4.8 (3.5-5.1) mmol/L Chloride 96 L (98-107) mmol/L Carbon Dioxide 32 (21-32) mmol/L BUN 39 H (6-23) mg/dl Creatinine 1.04 (0.6-1.2) mg/dl Glucose 173 H (70-99(Fasting)) mg/dl Calcium 9.5 (8.6-10.3) mg/dl Intake and Output 05/29/24 05/30/24 05/30/24 22:59 06:59 14:59 Intake Total 200 / 1190 200 / 1190 50 / 50 Output Total 1250 / 3601 450 / 3601 Balance -1050 / -2411 -250 / -2411 50 / 50 Intake: IV 50 / 50 cefTRIAXone SODIUM 2,000 mg In 50 / 50 50 ml @ 100 mls/hr IV Q24H [facility] Rx#:[id number] Oral 200 / 1140 200 / 1140 Output: Urine Amount (Catheter) 1250 / 3600 450 / 3600 Villarreal/Indwelling 1250 / 3600 450 / 3600 Other: Weight 111.5 kg Weight Measurement Method Standing Scale (4) Aortic stenosis Cardiac valve disease etiology: nonrheumatic Qualified Code(s): I35.0 - Nonrheumatic aortic (valve) stenosis (5) CAD (coronary artery disease) Associated angina: without angina Coronary Disease-Associated Artery/Lesion type: [place] artery [place] vs. transplanted heart: [place] heart Qualified Code(s): I25.10 - Atherosclerotic heart disease of [place] coronary artery without angina pectoris
[2024-05-30] MEDS: WARFARIN SOD 7.5 MG TAB PO SCH (15:12)
--- NOTE | 2024-05-30 15:55 | Discharge Summary ---
Discharge Summary Date of Service May 30, 2024 Principal Dx & Hospital Course #1 = Principal Diagnosis (1) Acute on chronic diastolic CHF (congestive heart failure): (2) Hypokalemia: (3) Hypomagnesemia: (4) Hypophosphatemia: (5) Paroxysmal atrial flutter: (6) Acquired lymphedema: (7) Elevated troponin: (8) Moderate aortic stenosis: (9) LUZ MARIA (obstructive sleep apnea): (10) Morbid obesity with BMI of 40.0-44.9, adult: (11) Chronic hypoxic respiratory failure: Plan Ms. Felix is an 83-year-old female with past med history significant for type 2 diabetes, diabetic polyneuropathy, obstructive sleep apnea noncompliant with CPAP on 2 L oxygen, paroxysmal SVT, nonsustained ventricular tachycardia, A-flutter, diastolic CHF, hypertension, nonrheumatic aortic valve stenosis, obesity, GERD, CKD stage III, osteoarthritis, history of breast cancer, history of chronic lymphedema, history of PE who was admitted for acute on chronic heart failure with preserved EF. There was also concern for UTI and possible cellulitis, however, it seems the bilateral erythema related to HF. Patient underwent titration of GDMT and completed IV CTX course. On day of discharge, patient declined any acute concerns. She had schultz removed and voided successfully. #Acute on chronic HFpEF #B/L Acquired lymphedema #Moderate aortic valve stenosis low suspicion for BL cellultitis, likely iso HF exacerbation Increased lower extremity swelling BNP 177 Chest XRAY noting stable cardiomegaly echo from 09/2023 moderate Aortic stenosis, EF 55-59%, small apical WMA possible old NE, compared to prior echo WMA was new received 40mg IV lasix in ED Continued lasix IV 40mg BID; transitioned to PO torsemide 20mg BID consult cardiology due to above and concern for tachyarrhythmia, appreciate recs - continue metoprolol, spironolactone, warfarin (INR goal 2-3), rosuvastatin - Daily standing weights. Strict I's/O. 2 g sodium diet. - follow up with outpatient [facility] cardiology Continue to monitor #Pre Syncope #Tachy-arrhythmia pt reports, "spells," where she gets nervousness in her chest and feels like she could pass out, she reports a few seconds of passing out in ED, no irwin chest pain in ED when pt was exerting in bathroom she became symptomatic of these, "spells" and was her HR was in the 200s, concern for flutter vs Monomorphic Vtach @ 1813 and 1930 monitor on tele and replete lytes Cardiology consulted, appreciate recs -Home metoprolol transitioned to succinate BID #History of a flutter #History of paroxysmal SVT #PAF Continue metoprolol and Coumadin as above #Elevated trop Trop elevated and 19.7, peaked and downtrended to 34.5 Likely demand iso above, low suspicion of ACS #Uncomplicated UTI UA suggestive of infection urine Cx grew pansensitive E coli and GBS completed course #Hypokalemia discharge with KCL supplementation #Hypomagnesemia Replete as needed keep above 2.0 secondary to history of arrhythmias #Chronic Anemia hgb 10, appears baseline stable #Intertrigo #Sacral bruising, healing POA encouraged continue weight shifting wound care followed #Chronic hypoxic resp failure On 2L chronically continue to monitor #History of PE Continue warfarin #T2DM A1c 6.7 Mar 27 2024 resume home regimen #Obstructive sleep apnea Oxygen at bedtime, patient noncompliant with CPAP #Hypertension BP elevated in ED; however small cuff noted to be on pt, large cuff placed and SBP in 140s received IV labetolol in ED continue metoprolol, previously on lisinopril but this was discontinued #History of breast cancer S/p left mastectomy previous on anastrazole #Morbid obesity, BMI 43.2 encourage diet/lifestyle changes Notes For Next Care Provider Medication Changes From Visit Start Metoprolol Succinate 25mg two times a day Start Spironolactone 12.5mg daily Stop Furosemide 40mg two times a day Start Torsemide 20mg two times day Start potassium 20meq daily Please take Warfarin 7.5mg daily and have your INR repeated in 3 days Admission HPI Per Admitting Provider This is an 83-year-old female with past med history significant for type 2 diabetes, diabetic polyneuropathy, obstructive sleep apnea noncompliant with CPAP on 2 L oxygen, paroxysmal SVT, nonsustained ventricular tachycardia, A-flutter, diastolic CHF, hypertension, nonrheumatic aortic valve stenosis, obesity, GERD, CKD stage III, osteoarthritis, history of breast cancer, history of chronic lymphedema, history of PE who presents with increased lower extremity swelling and multiple other complaints. Her and other family member are at bedside. Patient states she is been having off-and-on, "episodes," in which she feels like she is going to, "blackout." These episodes have been getting more frequent and today she had a series of episodes that is never happened before. She describes episodes where she can be sitting or exerting yourself and she gets a, "nervousness," sensation in the center of her chest and feels that she is in a pass out. It last for several seconds and goes away on its own. Due to her symptoms being worse today she opted to call EMS for further evaluation. She also reports over the last 4 to 6 weeks being unable to cook and having to heavily rely on a TV dinners due to her chronic knee pain. She has been compliant with her Lasix, but feels that this is contributed to a 10 to 15 pound weight gain as well as increase in lower extremity swelling. She has bilateral compression boots at home which have been keeping her lower extremities much less swollen until recently. She has been developing blisters that have been opening on her legs. She does feel nauseated but has not vomite d. She denies fever, chills, sweats, chest pain, hemoptysis, URI symptoms, vomiting, abdominal pain, dysuria, increased urgency or frequency with urination, melena or hematochezia. In ED patient remained hemodynamically stable although she was hypertensive. She remained on her chronic 2 L of oxygen. She reports after receiving IV Lasix she feels much better and they had to, "empty her bag twice." Per ED provider Pt has episode on tele when in the bathroom that appeared as a wide complex tachycardia flutter vs vtach with rates in the 200s that resolved with rest. Her magnesium and potassium are being replaced in ED. Outpt records were reviewed. Admission Exam Per Admitting Provider Constitutional: WD/WN, morbidly obese, F vitals as above, NAD, sitting up in bed, pleasant, conversing easily Head: Normocephalic, Atraumatic Eyes: PERRL, conjunctivae normal, anicteric sclerae ENMT: external ear and nose normal, oropharynx normal Neck: trachea midline, no thyromegaly normal visual inspection Respiratory: normal respiratory effort, lungs clear to auscultation, no wheeze, rales, rhonchi. Normal insp/exp effort, no accessory muscle use on 2L of O2 Cardiovascular: RRR, 1/6 EDIN RUSB, b/l severe lymphedema with b/l open blisters, no warmth or irwin redness concerning for cellulitis Vessels: no JVD or carotid bruit Chest: normal inspection of chest Abdomen: normal bowel sounds, soft, nontender, no hepatosplenomegaly Musculoskeletal: no cyanosis or clubbing, AROM x 4 Skin: no rashes, warm and dry normal turgor Neurologic: no face palsy, no dysarthria CN's II-XI intact bilaterally and moves all extremities Psychiatric: A+Ox3, euthymic affect : schultz cath draining yellow urine Discharge Exam Constitutional WD/WN, vitals as above Respiratory normal respiratory effort, lungs clear to auscultation on home O2 Cardiovascular RRR, nonpitting edema of BLE EDIN+ Gastrointestinal (Abdomen) normal bowel sounds, soft, nontender, no hepatosplenomegaly Updated Medication List Medication Instructions Recorded Confirmed Type cholecalciferol (vitamin D3) 50 50 mcg PO Q OTHER DAY 10/20/23 05/24/24 History mcg (2,000 unit) capsule (Vitamin D3) cyanocobalamin (vitamin B-12) 1,000 mcg PO DAILY 10/20/23 05/24/24 History 1,000 mcg tablet (Vitamin B-12) diclofenac sodium 1 % topical gel 4 g topical QID PRN Pain 10/20/23 05/24/24 History ferrous sulfate 325 mg (65 mg 325 mg PO DAILY 10/20/23 05/24/24 History iron) tablet insulin glargine 100 unit/mL See Rx Instructions .Route .COMPLEX 10/20/23 05/24/24 History subcutaneous solution (Lantus U-100 Insulin) metformin 1,000 mg tablet 1,000 mg PO BID 10/20/23 05/24/24 History pantoprazole 40 mg tablet,delayed 40 mg PO DAILYBB 10/20/23 05/24/24 History release pregabalin 150 mg capsule 150 mg PO BID 10/20/23 05/24/24 History tramadol 50 mg tablet 50 mg PO Q8 PRN Pain 10/20/23 05/24/24 History warfarin 5 mg tablet (Jantoven) 2.5 mg PO MO@1600 10/20/23 05/24/24 History escitalopram oxalate 10 mg tablet 10 mg PO DAILY 05/24/24 05/24/24 History warfarin 5 mg tablet (Jantoven) 5 mg PO GAL@1600 05/24/24 05/24/24 History metoprolol succinate 25 mg 25 mg PO BID #60 tabs 05/30/24 Rx tablet,extended release 24 hr potassium chloride 20 mEq 20 meq PO DAILY #30 tabs 05/30/24 Rx tablet,extended release(part/cryst) rosuvastatin 20 mg tablet 20 mg PO HS #30 tabs 05/30/24 Rx spironolactone 25 mg tablet 12.5 mg (1/2 x 25 mg) PO DAILY #30 05/30/24 Rx tabs torsemide 20 mg tablet 20 mg PO [id number] #60 tabs 05/30/24 Rx Hospital Stay Data Consultations 05/24/24 19:31 ED Decision to Admit Stat 05/24/24 20:22 Consult Cardiology Routine Pending Results Patient Have Any Pending Studies at Discharge: No Discharge Instructions Given to Patient (Per Discharging Provider) You were admitted for swelling of your legs and noted to be in a heart failure exacerbation. You were treated with IV lasix and multiple medication adjustments were done by Cardiology. You were also treated for a urinary tract infection and concern for skin infection on your legs. You completed your course of antibiotics. Here are the following changes to your medications: Discontinue metorpolol tartrate 12.5mg two times a day Start Metoprolol Succinate 25mg two times a day Start Spironolactone 12.5mg daily Stop Furosemide 40mg two times a day Start Torsemide 20mg two times day Start potassium 20meq daily Please take Warfarin 7.5mg daily and have your INR repeated in 3 days Total Time Total Time Spent Total Time Spent (In Minutes): 45
== END 2024-05-30 17:42 | disposition home or self-care (01) | DRG 291 ==
LOC: ED 17:30 → 2E 19:36 → SUATTDRO 19:36 → 2E 21:18